=== PATIENT | female | born 2005 | race Caucasian/White ===

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

== ENCOUNTER 2023-02-09 14:41 | Emergency (ER) | payer OTHER, SELFPAY ==
--- NOTE | 2023-02-09 14:50 | ED.EYEPROB ---
HPI - Eye Problem General Chief complaint: Eye Problems Stated complaint: Eye pain;Welcome eye Source: patient Mode of arrival: ambulatory Limitations: no limitations History of Present Illness HPI Narrative: 17 y/o female presented for c/o right eye redness, pain and drainage. Onset yesterday. States symptoms started after applying false eyelashes. States her friend used the glue then used the same glue on the pt. Pt reports right eye became red and burning. She removed the lashes immediately. Has been rubbing the eye. Woke this morning with the eye crusted. Has had large amount of thick drainage constantly throughout the day. Reports blurred vision due to the drainage. Denies photophobia. Applied allergy eye drops today, which caused more burning. MD chief complaint: eye pain Related Data Allergies Allergy/AdvReac Type Severity Reaction Status Date / Time pineapple Allergy Mild Unknown Verified 04/14/22 13:40 kiwi Allergy Blister Verified 05/14/22 06:42 gal Allergy Blister Verified 05/14/22 06:42 Review of Systems Review of Systems: CONSTITUTIONAL: Denies body aches, fever, chills EYES:Endorses swelling, redness and pain to right eye; FB sensation Denies visual changes, photophobia ENT: Denies rhinorrhea, congestion, sore throat, or otalgia. CARDIOVASCULAR: Denies chest pain, palpitations RESPIRATORY: Denies cough or dyspnea. GASTROINTESTINAL: Denies abdominal pain, nausea, vomiting, or diarrhea. SKIN: Denies rash, itching, or wounds. MUSCULOSKELETAL: Denies back pain, joint pain, or myalgia. NEUROLOGIC: Denies headache, numbness, tingling, or weakness. All systems reviewed & are unremarkable except as noted in HPI and below PMFSH Past Medical History Medical History Constipation LLQ abdominal pain Ovarian cyst Straining during bowel movements Social History Social History Smoking status: Never smoker Second hand tobacco smoke exposure: Yes Alcohol intake: unknown Substance use: never Living arrangements: with family Gender identity (if verbalized by the patient): Female Comments At time of signature, I have reviewed and agree with nursing past medical, surgical, social and family history unless otherwise noted. Please see nursing chart for further information. There is no relevant family history pertinent to the presenting complaint Exam Narrative: GENERAL: mildly ill-appearing HEAD: Normocephalic, atraumatic. EYES: Mild right conjunctival injection and mild right periorbital swelling/redness. No occlusion. Right eye with copious amount purulent drainage. Minimal chemosis. EOMI. Lid eversion shows no FB. No corneal abrasion on lopez lamp exam. ENT: Mucous membranes pink and moist. No rhinorrhea. TMs normal bilaterally. Throat normal. Uvula midline. CHEST: Clear to auscultation. HEART: Regular rate and rhythm. ABDOMEN: Soft, nontender, nondistended SKIN: Warm, dry, no rash. Normal skin turgor. NEURO: No focal deficits. Alert and oriented x3 PSYCH: Tearful, anxious Course Course Emergency Course: Patient is aware of diagnosis, understands and agrees to treatment plan. Anticipatory guidance given. Patient agrees to follow-up as directed and is aware of reasons to seek care at the emergency department. Portions of this record may have been created with voice recognition software Level of Care: Express Care Visit Vital Signs Vital signs: Vital Signs Temperature 99.2 F 02/09/23 14:54 Pulse Rate 115 H 02/09/23 14:54 Respiratory Rate 16 02/09/23 14:54 Blood Pressure 110/79 02/09/23 14:54 Pulse Oximetry 99 02/09/23 14:54 Temperature 99.2 F 02/09/23 14:54 Pulse Rate 115 H 02/09/23 14:54 Respiratory Rate 16 02/09/23 14:54 Blood Pressure 110/79 02/09/23 14:54 Pulse Oximetry 99 02/09/23 14:54 Procedures FB Removal Eye Foreig
[2023-02-09 14:54] VITALS: BP 110/79; PULSE 115; RESP 16; TEMP 37.3; O2SAT 99
== END 2023-02-09 15:13 | disposition home or self-care (01) ==
PROVIDERS: Emergency Provider Nurse Practitioner Family
DX: H10.9 Unspecified conjunctivitis (principal)
CPT/HCPCS: 99213; A9270; G0463

== ENCOUNTER 2023-07-10 11:29 | Inpatient (IN) | payer MEDICAID, SELFPAY ==
[2023-07-10] VITALS (10 sets, daily range): BP systolic 120–137; BP diastolic 81–99; PULSE 65–108; RESP 12–30; TEMP 36.4–36.9; O2SAT 91–100; BMI 14.6
--- NOTE | ~2023-07-10 | XR_ITS ---
EXAMINATION: XR chest 2V DATE: 07/10/2023 14:41 INDICATION: Weakness and dyspnea with exertion TECHNIQUE: PA and lateral views of the chest were obtained. COMPARISON: None FINDINGS: The lungs are clear with no focal airspace opacities, pulmonary edema, pleural effusion or pneumothor ax. The cardiomediastinal silhouette is normal. Visualized bones and soft tissues are unremarkable. IMPRESSION: 1. Normal chest radiograph. Reviewed, dictated and finalized at location A. IMPRESSION: 1. Normal chest radiograph.
--- NOTE | 2023-07-10 14:02 | ED.WEAKNESS ---
HPI - Weakness General Chief complaint: Weakness <EDUARDO Dobson Last Filed: 07/10/23 18:00> Stated complaint: weakness <EDUARDO Dobson Last Filed: 07/10/23 18:00> Time Seen by Provider: 07/10/23 14:03 <Opal Kraus PA-C - Last Filed: 07/10/23 18:00> Focused HPI: Patient is a 17 y/o female who presents to the ED with c/o weakness. Patient reports having weakness, shortness of breath with exertion, intermittent dizziness - worse with movement and position changes. States she feels as though she has to stop to catch her breath even with talking/eating. Reports 3 recent near-syncopal episodes after standing. Also reports unintentional weight loss, starts she has lost approx 15 lbs in the last two weeks. States she has been eating normally, high protein meals, has not been working out. Denies fevers, night sweats, CP currently. 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 GENERAL: Well-appearing, thin with BMI of 14.7, and in no acute distress. HEAD: Normocephalic, atraumatic. CHEST: Clear to auscultation. ?No respiratory distress. HEART: Tachycardic with regular rhythm.? NEURO: ?Alert and oriented x3. Patient screened in triage and initial orders placed.? ?Additional care and disposition to be based upon?diagnostic testing and treatment. <EDUARDO Dobson Last Filed: 07/10/23 18:00> Source: patient <EDUARDO Dobson Last Filed: 07/10/23 18:00> Mode of arrival: ambulatory <EDUARDO Dobson Last Filed: 07/10/23 18:00> Limitations: no limitations <EDUARDO Dobson Last Filed: 07/10/23 18:00> History of Present Illness HPI Narrative: HPI as per above in MSE. Pt also admits to excessive thirst and urinary frequency. Pt has no FH of DM. <Celine Ahuja III, DO - Last Filed: 07/10/23 22:40> Related Data Home medications: Home Medications Medication Instructions Recorded Confirmed hydroxyzine pamoate 50 mg capsule 50 mg PO DAILY 07/10/23 07/10/23 trazodone 100 mg tablet 50 mg PO HS PRN Insomnia 07/10/23 07/10/23 <Opal Kraus PA-C - Last Filed: 07/10/23 18:00> Allergies/Adverse reactions: Allergies Allergy/AdvReac Type Severity Reaction Status Date / Time pineapple Allergy Mild Unknown Verified 07/10/23 11:37 kiwi Allergy Blister Verified 07/10/23 11:37 gal Allergy Blister Verified 07/10/23 11:37 <Opal Kraus PA-C - Last Filed: 07/10/23 18:00> Review of Systems Review of Systems: All systems reviewed & are unremarkable except as noted in HPI and below <Celine Ahuja III, DO - Last Filed: 07/10/23 22:40> PMFSH Past Medical History Medical History: Medical History (Updated 07/10/23 @ 18:23 by Jagruti Russo MD) Constipation LLQ abdominal pain Ovarian cyst Straining during bowel movements Underweight <EDUARDO Dobson Last Filed: 07/10/23 18:00> Social History Social History: Social History Smoking status: Never smoker Second hand tobacco smoke exposure: Yes Alcohol intake: unknown Substance use: former Substance use type: marijuana and amphetamines Last use: 96 days ago Do You Feel Safe in your Home?: Yes Lack of Transportation: No Lack of Food: Never True Current Housing: I Have Housing Concerned About Future Housing: No Difficulty Paying Gas/Electric Bills: No Difficulty Paying for Meds: No Currently Unemployed: No Education: High School Diploma/GED Difficulty w/ Childcare or Family Care: No Living arrangements: with family Gender identity (if verbalized by the patient): Female Spiritual care concerns: No <EDUARDO Dobson Last Filed: 07/10/23 18:00> Exam Const: General: healthy appearing <Celine Ahuja III, DO - Last Filed: 06/25
--- NOTE | 2023-07-10 14:09 | ECG_ITS ---
SEE SCANNED COPY FOR CONFIRMED REPORT MTDD
[2023-07-10 14:32] LABS: Basophils Absolute Auto 0.1 K/mm3 (0.0-0.1); Eosinophils Absolute Auto 0.1 K/mm3 (0-0.3); Eosinophils Percent Auto 1.6 % (0-4.4); Hematocrit 41.5 % (37.0-47.0); Immature Granulocyte Absolute 0.04 K/mm3 (0.00-0.031); Immature Granulocyte Percent A 0.8 % (0-0.5); Lymphocytes Absolute Auto 1.04 K/mm3 (0.9-3.2); Lymphocytes Percent Auto 21.4 % (18.3-44.2); Mean Corpuscular HGB Conc 36.1 g/dl (32-36); Mean Corpuscular Hemoglobin 31.7 pg (26-34); Mean Corpuscular Volume 87.7 fl (80-100); Mean Platelet Volume 9.1 fl (7.4-10.4); Monocytes Absolute Auto 0.6 K/mm3 (0.1-0.6); Monocytes Percent Auto 12.6 % (2.6-8.5); Neutrophils Percent Auto 62.6 % (45.5-73.1); Platelet Count Result 351 k/mm3 (150-375); Red Blood Count 4.73 M/mm3 (4.2-5.4); Red Cell Distribution Width 16.2 % (11.5-14.5); White Blood Count 4.9 K/mm3 (4.5-10.0)
[2023-07-10 14:48] LABS: Alanine Aminotransferase 17 U/L (6-35); Albumin Level 4.5 g/dL (3.7-5.6); Alkaline Phosphatase 227 U/L (45-116); Anion Gap 20 mmol/L (4-12); Aspartate Amino Transferase 16 U/L (14-36); Bilirubin,Total 0.9 mg/dL (0.2-1.3); Blood Urea Nitrogen 10 mg/dL (8-21); Calcium 9.1 mg/dL (8.9-10.7); Carbon Dioxide 7 mmol/L (22-30); Chloride 99 mmol/L (98-107); Creatine Kinase 35 U/L (30-135); Estimated CRCL calculation 95 ml/min; Estimated Glomerular Filt Rate > 60; Lipase 294 U/L (23-300); Magnesium 2.2 mg/dL (1.6-2.3); Potassium 3.1 mmol/L (3.4-5.0); Sodium 126 mmol/L (134-143)
[2023-07-10 14:58] LABS: Glucose 672 mg/dL (65-110)
[2023-07-10 15:06] LABS: Appearance Urine Clear (Clear); Bacteria Urine None Seen /hpf; Bilirubin Urine Negative (Negative); Blood Urine 1+ (Negative); Color Urine Yellow (Yellow); Glucose Urine UA 3+ mg/dL (Negative); Ketones Urine 3+ mg/dL (Negative); Leukocyte Esterase Ur Negative LEU/UL (Negative); Nitrate Urine Negative (Negative); Non Pathogenic Casts 0-2; Protein Urine Negative (Negative); RBC Urine 0-2 /hpf (0-2); Squamous Epithelial Cell Urine None Seen /hpf (Few); Urobilinogen Urine 0.2 mg/dL (<2.0); WBC Urine 0-5 /hpf (0-3); pH Urine 5.5 (5.0-9.0)
[2023-07-10 15:09] LABS: Specific Grav Ur 1.032 (1.001-1.035)
[2023-07-10 15:10] LABS: Add Urine Microscopic? YES
[2023-07-10 15:30] LABS: Thyroid Stimulating Hormone Reflex 0.681 uIU/mL (0.465-4.68)
[2023-07-10 15:34] LABS: Amphetamine Screen Urine Negative (Negative); Barbiturate Screen Urine Negative (Negative); Benzodiazepines Screen Urine Negative (Negative); Cannabinoid Screen Urine Positive (Negative); Cocaine Screen Urine Negative (Negative); Methadone Screen Urine Negative (Negative); Opiate Screen Urine Negative (Negative); Phencyclidine Screen Urine Negative (Negative)
[2023-07-10] MEDS: SODIUM CHLORIDE 0.9% IV 1,000 ML 999 ML IV CONT (15:34)
[2023-07-10 15:36] LABS: Alveolar/Arterial O2 Gradient 16.4 mmHg; Carboxyhemoglobin 0.6 % THb (0-2.0); Fractional Inspired Oxygen 21 %; HCO3 ABG 7.4 mEq/l (22.0-26.0); Methemoglobin ABG 0.3 %THb (0-1.5); Oxygen Content ABG 21.6 %vol (16.0-22.0); Oxygen Saturation ABG 97.9 % (95.0-100.0); Oxyhemoglobin 97.1 % THb (90.0-100.0); PO2 ABG 114.8 mmHg (80.0-100.0); PO2 FiO2 Ratio Arterial Blood 5.47 %; Total Hemoglobin 15.7 g/dL (12.0-18.0)
[2023-07-10 15:38] LABS: pH ABG 7.297 (7.350-7.450)
[2023-07-10 15:39] LABS: Device ROOM AIR; PCO2 ABG 15.5 mmHg (35.0-45.0); Site Drawn RIGHT BRACHIAL
[2023-07-10 15:53] LABS: Phosphorus 3.4 mg/dL (2.5-4.5)
[2023-07-10 15:54] LABS: Hemoglobin A1C 13.7 % (<5.7)
[2023-07-10] MEDS: POTASSIUM CHLORIDE 20 MEQ ER TABLET 40 MEQ PO (16:03)
[2023-07-10] MEDS: POTASSIUM CHLORIDE INJ 40 MEQ in SODIUM CHLORIDE 0.9% IV 500 ML 130 MEQ IVPB ×2 (16:03→23:45)
[2023-07-10] MEDS: SODIUM CHLORIDE 0.9% IV 250 ML 999 ML (16:08)
--- NOTE | 2023-07-10 16:08 | PC.NURSE ---
started 250ml NS 0.9% with potassium infusion per verbal order read back from provider
[2023-07-10 17:10] LABS: Pregnancy On Board Control Positive; Urine Pregnancy Test Negative
[2023-07-10] MEDS: SODIUM CHLORIDE 0.9% IV 1,000 ML 150 ML IV CONT (17:10)
[2023-07-10 17:12] LABS: Glucose Point of Care 337 mg/dl (65-105)
--- NOTE | 2023-07-10 17:52 | ADMGEN ---
This patient, Himanshu Damon, was admitted to Intensive Care Unit-8. Patient/family oriented to hospital policies and general routines including ID bracelet, bed and alarms, visiting hours, pain management, procedures, bathroom and other care routines, personal items, smoking policy, room service/diet, and visiting hours. Information on how to activate the Rapid Response Team has been discussed. Patient/Family are encouraged to report perceived risks to care and to ask questions if they do not understand what they are told or what they should do.
--- NOTE | 2023-07-10 18:16 | PM.IMHP ---
H&P: HPI History of Present Illness Date/Time: 07/10/23 18:16 Chief Complaint: Shortness of breath with exertion, intermittent dizziness, weight loss, urinary frequency, increased thirst. Narrative: Miss Damon is a pleasant 17-year-old female with a past medical history polysubstance abuse who presents with approximately 2 weeks of shortness of breath with exertion, intermittent dizziness, 16 lb weight loss, urinary frequency, increased thirst. She has always been underweight, previously 110 lb now 94 lb. 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 She still does smoke marijuana prior to sleep for her anxiety. At the age of 7 she was bit by a brown recluse spider and was in a hospital for 9 days. She never received a blood transfusion reporting was able to eat well and be discharged. 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 No family history of diabetes. She does not have a PCP nor take prescribed medications. The patient had enough of feeling ill and decided to obtain insurance and present to [place] [facility] she was found to be in DKA. ABG revealing pH of 7.29 and bicarb was 7.4. Sodium 126 potassium 3.1 anion gap 20. Random glucose 672. Hemoglobin A1c 13.7%. Urinalysis demonstrating urine ketones glucose and 1+ blood. U tox positive for cannabinoids. In the [facility] she was given KCl 40 mEq p.o. x1 along with 1 L normal saline and insulin GTT started. Review of Systems Review of Systems: All systems reviewed & are unremarkable except as noted in HPI and below (Subjective) [facility] Past Medical History Medical History (Updated 07/10/23 @ 18:23 by Jagruti Russo MD) Constipation LLQ abdominal pain Ovarian cyst Straining during bowel movements Underweight Social History Social History Smoking status: Never smoker Second hand tobacco smoke exposure: Yes Alcohol intake: unknown Substance use: never Living arrangements: with family Gender identity (if verbalized by the patient): Female Meds Home Medications and Allergies Home Medications Medication Instructions Recorded Confirmed Type cyclobenzaprine 10 mg tablet 10 mg PO TID PRN muscle spasm #20 04/14/22 Rx tabs dicyclomine 20 mg tablet 20 mg PO QID #14 tabs 05/14/22 Rx ketorolac 0.5 % eye drops 1 drp RIGHT EYE Q6H PRN pain #3 mL 02/09/23 Rx polymyxin B sulfate 10,000 1 drp RIGHT EYE Q3H 7 days #10 mL 02/09/23 Rx unit-trimethoprim 1 mg/mL eye drops Allergies Allergy/AdvReac Type Severity Reaction Status Date / Time pineapple Allergy Mild Unknown Verified 07/10/23 11:37 kiwi Allergy Blister Verified 07/10/23 11:37 gal Allergy Blister Verified 07/10/23 11:37 Vital Signs Vital Signs - 24 hr 07/10/23 12:06 07/10/23 16:15 07/10/23 16:15 Temperature 97.6 F Pulse Rate 108 H 96 102 H Respiratory Rate 16 Blood Pressure 126/81 127/83 130/91 H Pulse Oximetry 100 07/10/23 16:16 07/10/23 15:58 07/10/23 16:01 Temperature Pulse Rate 103 H 99 97 Respiratory Rate 30 H 12 Blood Pressure 134/92 H 136/99 H 126/87 Pulse Oximetry 100 100 07/10/23 16:15 07/10/23 16:16 07/10/23 16:17 Temperature Pulse Rate 99 105 H 101 H Respiratory Rate 13 17 18 Blood Pressure 127/83 130/91 H 134/92 H Pulse Oximetry 100 100 100 07/10/23 16:46 Temperature Pulse Rate 100 Respiratory Rate 18 Blood Pressure 128/92 H Pulse Oximetry 100 Exam Const: General: comfortable and no acute distress Other: A&O x3 Eyes: Pupils: Equal, round and reactive pupils present Neck: Neck: supple Resp: Effort & Inspection: normal respiratory effort Auscultation: clear to auscultation bilaterally Cardio: Rate: regular rate Rhythm: regular rhythm Heart sounds: no gallops, no murmurs and no rubs GI: GI Palp: Yes Soft to palpation and No Tender
[2023-07-10] MEDS: INSULIN HUMAN REGULAR (*BKC) 100 UNITS in SODIUM CHLORIDE 0.9% IV 99 ML IV CONT (18:35)
[2023-07-10 18:36] LABS: Glucose Point of Care 249 mg/dl (65-105)
[2023-07-10] MEDS: KCL 20 MEQ/D5/0.45% SOD CHL 1,000 ML 150 ML IV CONT (19:00)
[2023-07-10 20:04] LABS: Glucose Point of Care 228 mg/dl (65-105)
[2023-07-10 20:39] LABS: MRSA (PCR) NOT DETECTED (NOT DETECTE)
[2023-07-10 21:15] LABS: Blood Urea Nitrogen 6 mg/dL (8-21); Carbon Dioxide < 5 mmol/L (22-30); Chloride 117 mmol/L (98-107); Estimated CRCL calculation 116 ml/min; Estimated Glomerular Filt Rate > 60; Glucose 215 mg/dL (65-110); Potassium 2.9 mmol/L (3.4-5.0); Sodium 138 mmol/L (134-143)
[2023-07-10 22:03] LABS: Glucose Point of Care 208 mg/dl (65-105)
[2023-07-10 23:05] LABS: Glucose Point of Care 185 mg/dl (65-105)
[2023-07-10] MEDS: POTASSIUM CHLORIDE 20 MEQ PACKET (FOR LIQUID) 40 MEQ PO (23:45)
[2023-07-11] VITALS (12 sets, daily range): BP systolic 95–128; BP diastolic 57–87; PULSE 90–139; RESP 12–29; TEMP 36.6–37.1; O2SAT 94–100; BMI 17.8
[2023-07-11] MEDS: traZODone HCL 50 MG TABLET PO ×2 (00:12→22:46)
[2023-07-11 00:19] LABS: Glucose Point of Care 197 mg/dl (65-105)
[2023-07-11 01:28] LABS: Glucose Point of Care 261 mg/dl (65-105)
[2023-07-11] MEDS: KCL 20 MEQ/D5/0.45% SOD CHL 1,000 ML 150 ML IV CONT ×2 (01:41→09:48)
[2023-07-11 02:28] LABS: Glucose Point of Care 273 mg/dl (65-105)
[2023-07-11 04:25] LABS: Basophils Absolute Auto 0.1 K/mm3 (0.0-0.1); Basophils Percent Auto 1.3 % (0.2-1.2); Eosinophils Absolute Auto 0.2 K/mm3 (0-0.3); Eosinophils Percent Auto 3.3 % (0-4.4); Hematocrit 34.4 % (37.0-47.0); Hemoglobin 12.4 g/dL (12.0-15.0); Immature Granulocyte Absolute 0.04 K/mm3 (0.00-0.031); Immature Granulocyte Percent A 0.6 % (0-0.5); Lymphocytes Absolute Auto 2.41 K/mm3 (0.9-3.2); Lymphocytes Percent Auto 35.7 % (18.3-44.2); Mean Corpuscular Hemoglobin 31.3 pg (26-34); Mean Corpuscular Volume 86.9 fl (80-100); Mean Platelet Volume 8.9 fl (7.4-10.4); Monocytes Percent Auto 14.5 % (2.6-8.5); Neutrophils Percent Auto 44.6 % (45.5-73.1); Platelet Count Result 289 k/mm3 (150-375); Red Blood Count 3.96 M/mm3 (4.2-5.4); Red Cell Distribution Width 15.7 % (11.5-14.5); White Blood Count 6.8 K/mm3 (4.5-10.0)
[2023-07-11 04:35] LABS: Alanine Aminotransferase 13 U/L (6-35); Albumin Level 2.9 g/dL (3.7-5.6); Alkaline Phosphatase 140 U/L (45-116); Anion Gap 7 mmol/L (4-12); Aspartate Amino Transferase 15 U/L (14-36); Bilirubin,Total 0.8 mg/dL (0.2-1.3); Blood Urea Nitrogen 3 mg/dL (8-21); Carbon Dioxide 10 mmol/L (22-30); Chloride 115 mmol/L (98-107); Estimated CRCL calculation 148 ml/min; Estimated Glomerular Filt Rate > 60; Glucose 257 mg/dL (65-110); Magnesium 1.9 mg/dL (1.6-2.3); Phosphorus 1.8 mg/dL (2.5-4.5); Potassium 3.7 mmol/L (3.4-5.0); Sodium 132 mmol/L (134-143)
[2023-07-11 04:42] LABS: Glucose Point of Care 273 mg/dl (65-105)
[2023-07-11 04:42] LABS: Glucose Point of Care 249 mg/dl (65-105)
[2023-07-11 05:40] LABS: Glucose Point of Care 254 mg/dl (65-105)
[2023-07-11 06:28] LABS: Glucose Point of Care 212 mg/dl (65-105)
[2023-07-11 07:22] LABS: Glucose Point of Care 206 mg/dl (65-105)
[2023-07-11] MEDS: SODIUM CHLORIDE 0.9% IV 1,000 ML 999 ML IV CONT (07:44)
[2023-07-11 08:33] LABS: Glucose Point of Care 118 mg/dl (65-105)
[2023-07-11] MEDS: PANTOPRAZOLE SODIUM IV 40 MG VIAL IV PUSH (08:34)
[2023-07-11] MEDS: ENOXAPARIN 40 MG/0.4 ML SYRINGE SUB-Q (08:34)
--- NOTE | 2023-07-11 08:44 | WPDCNINT ---
Assessment and Plan Assessment and plan (1) DKA (diabetic ketoacidosis): Code(s): E11.10 - Type 2 diabetes mellitus with ketoacidosis without coma Status: Acute Assessment and Plan: Patient presented with polyphagia, polydipsia, polyuria, weight loss, dizziness -found to be in diabetic ketoacidosis in the ER, given 1 L IV fluid bolus and started on insulin infusion per DKA protocol -patient remains tachycardic and acidotic this morning, give additional 2 L IV fluids -remains on insulin infusion at this time, will transition to long-acting insulin and sliding scale insulin along with Accu-Cheks once anion gap closes and acidosis resolves -hemoglobin A1c is 13.7 this admission -environmental projects advisor and dietitian have been consulted (2) Diabetes mellitus, new onset: Code(s): E11.9 - Type 2 diabetes mellitus without complications Status: Acute Assessment and Plan: New onset diabetes, zinc transporter 8 antibody and GAD65 antibodies have been ordered -hemoglobin A1c 13.7 this admission -patient will likely require insulin upon discharge (3) Hypokalemia: Code(s): E87.6 - Hypokalemia Status: Acute Assessment and Plan: Hypokalemia on admission, potassium was replaced, currently within normal limits, -will continue to monitor Plan DVT prophylaxis: Lovenox Stress ulcer prophylaxis: Not indicated Nutrition: NPO for now Code Status: Full code Critical Care Time Spent: 45 minutes Discussed with patient and her mother at bedside and updated them with patient's condition plan of care. I answered all the questions. medical educator was at bedside Due to a high probability of clinically significant, life threatening deterioration, the patient required my highest level of preparedness to intervene emergently and I personally spent this critical care time directly and personally managing the patient. This critical care time included obtaining a history; examining the patient; pulse oximetry; ordering and review of studies; arranging urgent treatment with development of a management plan; evaluation of patient's response to treatment; frequent reassessment; and discussions with other providers. It was exclusive of separately billable procedures and treating other patients and teaching time. Please see Assessment and Plan section and the rest of the note for further information on patient assessment and treatment This dictation may have been done utilizing a voice recognition system. Attempts have been made to correct errors. However, there may be uncorrected grammatical, spelling, and recognitions errors present. Audioprosthologist Consult Note Consult date: 07/11/23 Reason for consult: Diabetic ketoacidosis, hyperglycemia, polyuria, polydipsia, polyphagia, weight loss HPI: Himanshu Damon is a 17 year old female with past medical history of polysubstance abuse with methamphetamine Adderall, discharged from rehab approximately 90 days prior to this admission presented to the ED with complains of weight loss, polyuria, polydipsia, polyphagia, generalized weakness, intermittent dizziness and passing out. States she discussed with the mother that something was not right and presented the ED which she was found to have blood sugars of 672, elevated anion gap, severely acidotic and was diagnosed with diabetic ketoacidosis. Patient was given 1 L IV fluids and started on insulin infusion per DKA protocol and transferred to the ICU for further management. Patient seen and examined this morning in the ICU, very pleasant young female who states she feels much better this morning, states she is hungry. Denies any nausea, vomiting, abdominal pain, chest pain, shortness of breath. Have asked the bedside RN to give 1 L IV fluid bolus. Patient remains on insulin infusion per DKA protocol, continues to be severely acidotic, anion gap is closed. Review of Systems Review of Systems: All systems reviewed & are unrema
[2023-07-11 09:45] LABS: Glucose Point of Care 96 mg/dl (65-105)
[2023-07-11] MEDS: LACTATED RINGERS 1,000 ML 999 ML IV CONT (09:48)
[2023-07-11 09:59] LABS: Anion Gap 10 mmol/L (4-12); Blood Urea Nitrogen 3 mg/dL (8-21); Calcium 8.2 mg/dL (8.9-10.7); Carbon Dioxide 14 mmol/L (22-30); Chloride 112 mmol/L (98-107); Estimated CRCL calculation 141 ml/min; Estimated Glomerular Filt Rate > 60; Glucose 95 mg/dL (65-110); Potassium 2.5 mmol/L (3.4-5.0); Sodium 136 mmol/L (134-143)
[2023-07-11] MEDS: INSULIN GLARGINE (*BKC) 100 UNITS/ML 24 UNITS SUB-Q (10:21)
[2023-07-11] MEDS: POTASSIUM CHLORIDE 20 MEQ ER TABLET 80 MEQ PO (10:23)
[2023-07-11 11:25] LABS: Glucose Point of Care 93 mg/dl (65-105)
[2023-07-11 13:58] LABS: Anion Gap 8 mmol/L (4-12); Blood Urea Nitrogen 2 mg/dL (8-21); Carbon Dioxide 17 mmol/L (22-30); Chloride 106 mmol/L (98-107); Estimated CRCL calculation 180 ml/min; Estimated Glomerular Filt Rate > 60; Glucose 353 mg/dL (65-110); Potassium 3.3 mmol/L (3.4-5.0); Sodium 131 mmol/L (134-143)
[2023-07-11] MEDS: INSULIN ASPART (*BKC) 100 UNITS/ML SUB-Q ×2 (16:35→20:26)
[2023-07-11 16:40] LABS: Glucose Point of Care > 500 mg/dl (65-105)
[2023-07-11] MEDS: INSULIN ASPART (*BKC) 100 UNITS/ML 10 UNITS SUB-Q (17:33)
[2023-07-11 23:06] LABS: Glucose Point of Care 388 mg/dl (65-105)
[2023-07-12] VITALS (9 sets, daily range): BP systolic 101–119; BP diastolic 60–98; PULSE 85–131; RESP 14–22; TEMP 36.6–36.9; O2SAT 98–100
[2023-07-12 06:36] LABS: Hematocrit 35.3 % (37.0-47.0); Hemoglobin 12.8 g/dL (12.0-15.0); Mean Corpuscular HGB Conc 36.3 g/dl (32-36); Mean Corpuscular Hemoglobin 31.1 pg (26-34); Mean Corpuscular Volume 85.9 fl (80-100); Mean Platelet Volume 9.1 fl (7.4-10.4); Platelet Count Result 263 k/mm3 (150-375); Red Blood Count 4.11 M/mm3 (4.2-5.4); Red Cell Distribution Width 15.3 % (11.5-14.5); White Blood Count 5.4 K/mm3 (4.5-10.0)
[2023-07-12 07:13] LABS: Anion Gap 3 mmol/L (4-12); Blood Urea Nitrogen 6 mg/dL (8-21); Calcium 8.5 mg/dL (8.9-10.7); Carbon Dioxide 26 mmol/L (22-30); Chloride 108 mmol/L (98-107); Estimated CRCL calculation 167 ml/min; Estimated Glomerular Filt Rate > 60; Glucose 171 mg/dL (65-110); Potassium 2.8 mmol/L (3.4-5.0); Sodium 137 mmol/L (134-143)
[2023-07-12 07:56] LABS: Glucose Point of Care 196 mg/dl (65-105)
[2023-07-12] MEDS: ENOXAPARIN 40 MG/0.4 ML SYRINGE SUB-Q (08:01)
[2023-07-12] MEDS: PANTOPRAZOLE SODIUM IV 40 MG VIAL IV PUSH (08:01)
[2023-07-12] MEDS: POTASSIUM CHLORIDE 20 MEQ ER TABLET 80 MEQ PO (08:01)
[2023-07-12] MEDS: INSULIN GLARGINE (*BKC) 100 UNITS/ML 35 UNITS SUB-Q (08:02)
--- NOTE | 2023-07-12 08:47 | WPDINTPN ---
Progress Note: A&P Assessment and Plan (1) DKA (diabetic ketoacidosis): Code(s): E11.10 - Type 2 diabetes mellitus with ketoacidosis without coma Status: Acute Assessment and Plan: Patient presented with polyphagia, polydipsia, polyuria, weight loss, dizziness -found to be in diabetic ketoacidosis in the ER, given 1 L IV fluid bolus and started on insulin infusion per DKA protocol -patient remains tachycardic and acidotic this morning, give additional 2 L IV fluids -patient was transition to long-acting insulin and sliding scale insulin along with Accu-Cheks on 07/10 -hemoglobin A1c is 13.7 this admission -appreciate surgical scrub technologist and dietitian evaluation and recommendation (2) Diabetes mellitus, new onset: Code(s): E11.9 - Type 2 diabetes mellitus without complications Status: Acute Assessment and Plan: New onset diabetes, zinc transporter 8 antibody and GAD65 antibodies have been ordered -hemoglobin A1c 13.7 this admission -will increase Lantus this morning (3) Hypokalemia: Code(s): E87.6 - Hypokalemia Status: Acute Assessment and Plan: Hypokalemia on admission, potassium was replaced, currently within normal limits, -will continue to monitor -will replace potassium Plan DVT prophylaxis: Lovenox Stress ulcer prophylaxis: Not indicated Nutrition: Peg diet Code Status: Full code Critical Care Time Spent: 31 minutes Discussed with patient and her mother at bedside and updated them with patient's condition plan of care. I answered all the questions. Patient may transfer out of the ICU if okay with hospitalist team Due to a high probability of clinically significant, life threatening deterioration, the patient required my highest level of preparedness to intervene emergently and I personally spent this critical care time directly and personally managing the patient. This critical care time included obtaining a history; examining the patient; pulse oximetry; ordering and review of studies; arranging urgent treatment with development of a management plan; evaluation of patient's response to treatment; frequent reassessment; and discussions with other providers. It was exclusive of separately billable procedures and treating other patients and teaching time. Please see Assessment and Plan section and the rest of the note for further information on patient assessment and treatment This dictation may have been done utilizing a voice recognition system. Attempts have been made to correct errors. However, there may be uncorrected grammatical, spelling, and recognitions errors present. Subjective Date/time seen: 07/12/23 08:47 Interval history: Reason for consult: Diabetic ketoacidosis, hyperglycemia, polyuria, polydipsia, polyphagia, weight loss 07/12/2023: Patient seen and examined the ICU, very pleasant young female in no acute distress. States she feels much better, denies any shortness of breath, chest pain, abdominal pain, nausea, vomiting. A sugars were high intermittently yesterday requiring extra insulin. Urine output has been adequate, afebrile, hemodynamically stable. Acidosis has resolved, no anion gap metabolic acidosis seen on labs. Review of Systems Review of Systems: All systems reviewed & are unremarkable except as noted in HPI and below Exam Narrative: General: Pleasant young female in no acute distress HEENT:? Pupil equal and reactive, sclera is clear, dry oral mucosa Neck:? Supple Respiratory:? Clear to auscultation bilaterally Cardiac:? Regular rhythm, tachycardia Abdomen:? Soft, nontender, nondistended, normoactive bowel sounds Extremities:? No edema, clubbing or cyanosis, palpable pedal pulses Neuro:? Patient is awake, alert, oriented x3, nonfocal Skin:? Warm and dry Psych:? Normal mentation and affect Objective Data Vital Signs Vital Signs: Vital Signs - 24 hr 07/11/23 10:00 07/11/23 10:00 07/11/23 12:00 Temperature 98.
--- NOTE | 2023-07-12 10:36 | PCFNICU ---
ICU Rounding Note: Pt current nutrition is DBCC. Last recorded weight is 45.3 kg, down from 48.6 kg on admit Bowel Motility: +BM reported 07/10 Labs Reviewed:Glu 171, Cr 0.3,BUN 6, K 2.8 Meds Noted:Lantus,NovoLog, Protonix Skin: WNL Additional Notes: Patient seen today for DBCC education. States to understanding diet information given. Patient is consuming 100% of meals. Glucerna shakes remain on trays providing an additional 220 kcals and 10 gms protein. Agree with diet orders. Following daily in ICU rounds. Will monitor weight, labs, skin, oral intake, meds every 7 days.
--- NOTE | 2023-07-12 11:04 | PM.IMPN ---
Progress Note: A&P Assessment and Plan (1) Hypokalemia: Code(s): E87.6 - Hypokalemia Status: Acute (2) DKA (diabetic ketoacidosis): Code(s): E11.10 - Type 2 diabetes mellitus with ketoacidosis without coma Status: Acute (3) Underweight: Code(s): R63.6 - Underweight Status: Acute Plan (1) DKA (diabetic ketoacidosis): ?Code(s): E11.10 - Type 2 diabetes mellitus with ketoacidosis without coma ?Status:?Acute ?Assessment and Plan: Patient presented with polyphagia, polydipsia, polyuria, weight loss, dizziness -found to be in diabetic ketoacidosis in the ER, given 1 L IV fluid bolus and started on insulin infusion per DKA protocol -patient remains tachycardic and acidotic this morning, give additional 2 L IV fluids -patient was transition to long-acting insulin and sliding scale insulin along with Accu-Cheks on 07/10 -hemoglobin A1c is 13.7 this admission -appreciate tobacco prevention health educator and dietitian evaluation and recommendation 07/11: DKA has resolved, but glucose is not controlled continue Lantus and short-acting insulin, adjust medication for better glucose control Continue glargine 35 units daily, start aspart 10 units before each meal, continue sliding scale a.c. q.h.s. (2) Diabetes mellitus, new onset: ?Code(s): E11.9 - Type 2 diabetes mellitus without complications ?Status:?Acute ?Assessment and Plan: New onset diabetes, zinc transporter 8 antibody and GAD65 antibodies have been ordered -hemoglobin A1c 13.7 this admission -will increase Lantus this morning (3) Hypokalemia: ?Code(s): E87.6 - Hypokalemia ?Status:?Acute ?Assessment and Plan: Hypokalemia on admission, potassium was replaced, currently within normal limits, -will continue to monitor -will replace potassium Plan DVT prophylaxis:? Lovenox Stress ulcer prophylaxis:? Not indicated Nutrition:? Peg diet Code Status:? Full code Subjective Date/time seen: 07/12/23 11:04 Interval history: I saw exam patient today in the ICU, patient feels better, denies nausea vomiting abdomen pain. Patient also denies chest pain, shortness of breath, palpitation. Urine output has been adequate, afebrile, hemodynamically stable. Acidosis has resolved, no anion gap metabolic acidosis seen on labs. Patient is on basal insulin and short-acting insulin Exam Narrative: General: Pleasant young female in no acute distress HEENT:? Pupil equal and reactive, sclera is clear, dry oral mucosa Neck:? Supple Respiratory:? Clear to auscultation bilaterally Cardiac:? Regular rhythm, tachycardia Abdomen:? Soft, nontender, nondistended, normoactive bowel sounds Extremities:? No edema, clubbing or cyanosis, palpable pedal pulses Neuro:? Patient is awake, alert, oriented x3, nonfocal Skin:? Warm and dry Psych:? Normal mentation and affect Objective Data Vital Signs Vital Signs: Vital Signs - 24 hr 07/11/23 12:00 07/11/23 12:00 07/11/23 12:00 Temperature 98.1 F Pulse Rate 117 H 117 H 117 H Respiratory Rate 24 H 24 H Blood Pressure 128/83 Pulse Oximetry 100 100 Oxygen Delivery Room Air 07/11/23 14:00 07/11/23 14:00 07/11/23 16:00 Temperature Pulse Rate 120 H 111 H 138 H Respiratory Rate 14 Blood Pressure 119/73 Pulse Oximetry 100 Oxygen Delivery 07/11/23 16:00 07/11/23 16:00 07/11/23 18:00 Temperature 98.3 F Pulse Rate 139 H 139 H 125 H Respiratory Rate 29 H 29 H Blood Pressure 125/76 Pulse Oximetry 94 94 Oxygen Delivery Room Air 07/11/23 18:00 07/11/23 20:00 07/11/23 20:00 Temperature Pulse Rate 123 H 123 H 107 H Respiratory Rate 14 14 Blood Pressure 120/87 Pulse Oximetry 100 100 Oxygen Delivery Room Air 07/11/23 20:00 07/11/23 22:00 07/11/23 22:00 Temperature 98.7 F Pulse Rate 107 H 109 H 109 H Respiratory Rate 17 15 Blood Pressure 110/73 103/69 Pulse Oximetry 100 100 Oxygen Delivery 07/12/23 00:00
[2023-07-12 11:51] LABS: Glucose Point of Care 288 mg/dl (65-105)
[2023-07-12] MEDS: INSULIN ASPART (*BKC) 100 UNITS/ML SUB-Q ×3 (12:08→20:19)
[2023-07-12 16:26] LABS: Glucose Point of Care 317 mg/dl (65-105)
[2023-07-12] MEDS: INSULIN ASPART (*BKC) 100 UNITS/ML 10 UNITS SUB-Q (16:55)
[2023-07-12 20:06] LABS: Glucose Point of Care 345 mg/dl (65-105)
[2023-07-12] MEDS: traZODone HCL 50 MG TABLET PO (20:54)
[2023-07-13] VITALS: BP 91/58; PULSE 94; PULSE 96; RESP 15; O2SAT 97
[2023-07-13 04:00] VITALS: BP 102/67; PULSE 83; PULSE 96; RESP 12; TEMP 36.5; O2SAT 98
[2023-07-13 05:06] LABS: Anion Gap 3 mmol/L (4-12); Blood Urea Nitrogen 15 mg/dL (8-21); Calcium 8.5 mg/dL (8.9-10.7); Carbon Dioxide 28 mmol/L (22-30); Chloride 107 mmol/L (98-107); Estimated CRCL calculation 167 ml/min; Estimated Glomerular Filt Rate > 60; Glucose 115 mg/dL (65-110); Potassium 3.2 mmol/L (3.4-5.0); Sodium 138 mmol/L (134-143)
--- NOTE | 2023-07-13 07:47 | PM.IMPN ---
Progress Note: A&P Assessment and Plan (1) Hypokalemia: Code(s): E87.6 - Hypokalemia Status: Acute (2) DKA (diabetic ketoacidosis): Code(s): E11.10 - Type 2 diabetes mellitus with ketoacidosis without coma Status: Acute (3) Underweight: Code(s): R63.6 - Underweight Status: Acute Plan (1) DKA (diabetic ketoacidosis): ?Code(s): E11.10 - Type 2 diabetes mellitus with ketoacidosis without coma ?Status:?Acute ?Assessment and Plan: Patient presented with polyphagia, polydipsia, polyuria, weight loss, dizziness -found to be in diabetic ketoacidosis in the ER, given 1 L IV fluid bolus and started on insulin infusion per DKA protocol -patient remains tachycardic and acidotic this morning, give additional 2 L IV fluids -patient was transition to long-acting insulin and sliding scale insulin along with Accu-Cheks on 07/10 -hemoglobin A1c is 13.7 this admission -appreciate healthcare educator and dietitian evaluation and recommendation 07/11: DKA has resolved, but glucose is not controlled continue Lantus and short-acting insulin, adjust medication for better glucose control Continue glargine 35 units daily, start aspart 10 units before each meal, continue sliding scale a.c. q.h.s. 07/12: glucose is better controlled. c/w current insulin protocol and pt needs to see PCP, address medication per PCP and referral to bus aide per PCP (2) Diabetes mellitus, new onset: ?Code(s): E11.9 - Type 2 diabetes mellitus without complications ?Status:?Acute ?Assessment and Plan: New onset diabetes, zinc transporter 8 antibody and GAD65 antibodies have been ordered -hemoglobin A1c 13.7 this admission -will increase Lantus and aspart see above (3) Hypokalemia: ?Code(s): E87.6 - Hypokalemia ?Status:?Acute ?Assessment and Plan: Hypokalemia on admission, potassium was replaced, currently within normal limits, -will continue to monitor -will replace potassium 3.2 today. discharge with potassium chloride 20 mEq p.o. daily follow-up with PCP and correct electrolyte abnormality per PCP discharge patient today Subjective Date/time seen: 07/13/23 07:47 Interval history: patient is afebrile, blood pressure stable, no O2 desaturation overnight, glucose is better controlled, Exam Narrative: General: Pleasant young female in no acute distress HEENT:? Pupil equal and reactive, sclera is clear, dry oral mucosa Neck:? Supple Respiratory:? Clear to auscultation bilaterally Cardiac:? Regular rhythm, tachycardia Abdomen:? Soft, nontender, nondistended, normoactive bowel sounds Extremities:? No edema, clubbing or cyanosis, palpable pedal pulses Neuro:? Patient is awake, alert, oriented x3, nonfocal Skin:? Warm and dry Psych:? Normal mentation and affect Objective Data Vital Signs Vital Signs: Vital Signs - 24 hr 07/12/23 08:00 07/12/23 08:00 07/12/23 08:00 Temperature 98.1 F Pulse Rate 103 H 103 H 103 H Respiratory Rate 15 15 Blood Pressure 111/80 Pulse Oximetry 100 100 Oxygen Delivery Room Air 07/12/23 08:50 07/12/23 12:00 07/12/23 12:00 Temperature 97.9 F Pulse Rate 131 H 131 H Respiratory Rate 20 Blood Pressure 119/95 H Pulse Oximetry 100 100 Oxygen Delivery Room Air 07/12/23 16:00 07/12/23 16:00 07/12/23 20:00 Temperature 98.2 F Pulse Rate 111 H 104 H Respiratory Rate 18 Blood Pressure 108/78 Pulse Oximetry 100 Oxygen Delivery Room Air 07/12/23 20:00 07/12/23 20:00 07/13/23 00:00 Temperature Pulse Rate 119 H 118 H 96 Respiratory Rate 14 15 Blood Pressure 110/98 H 91/58 L Pulse Oximetry 99 97 Oxygen Delivery 07/13/23 00:00 07/13/23 04:00 07/13/23 04:00 Temperature 97.7 F Pulse Rate 94 96 83 Respiratory Rate 12 Blood Pressure 102/67 Pulse Oximetry 98 Oxygen Delivery Intake/Output Intake/Output: Intake & Output 07/10/23 07/11/23 07/12/23 07/13/23
--- NOTE | 2023-07-13 07:48 | PM.DS ---
DS: Admitting Diagnosis Discharge Date 07/13/23 Admitting Diagnosis (1) Hypokalemia: ?Code(s): E87.6 - Hypokalemia ?Status:?Acute (2) DKA (diabetic ketoacidosis): ?Code(s): E11.10 - Type 2 diabetes mellitus with ketoacidosis without coma ?Status:?Acute (3) Underweight: ?Code(s): R63.6 - Underweight ?Status:?Acute DS: Discharge Diagnosis Discharge Diagnosis (1) Hypokalemia: Code(s): E87.6 - Hypokalemia Status: Acute (2) DKA (diabetic ketoacidosis): Code(s): E11.10 - Type 2 diabetes mellitus with ketoacidosis without coma Status: Acute (3) Underweight: Code(s): R63.6 - Underweight Status: Acute DS: Summary Hospital Course Hospital Course: per PCP, Nelson is a pleasant 17-year-old female with a past medical history polysubstance abuse who presents with approximately 2 weeks of shortness of breath with exertion, intermittent dizziness, 16 lb weight loss, urinary frequency, increased thirst.? She has always been underweight, previously 110 lb now 94 lb.? 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 She still does smoke marijuana prior to sleep for her anxiety.? At the age of 7 she was bit by a brown recluse spider and was in a hospital for 9 days.? She never received a blood transfusion reporting was able to eat well and be discharged.? 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 No family history of diabetes.? She does not have a PCP nor take prescribed medications. The patient had enough of feeling ill and decided to obtain insurance and present to [facility] [facility] she was found to be in DKA.? ABG revealing pH of 7.29 and bicarb was 7.4.? Sodium 126 potassium 3.1 anion gap 20.? Random glucose 672.? Hemoglobin A1c 13.7%.? Urinalysis demonstrating urine ketones glucose and 1+ blood.? U tox positive for cannabinoids. In the [facility] ER she was given KCl 40 mEq p.o. x1 along with 1 L normal saline and insulin GTT started. during hospitalization, the following medical issues have been addressed (1) DKA (diabetic ketoacidosis): ?Code(s): E11.10 - Type 2 diabetes mellitus with ketoacidosis without coma ?Status:?Acute ?Assessment and Plan: Patient presented with polyphagia, polydipsia, polyuria, weight loss, dizziness -found to be in diabetic ketoacidosis in the ER, given 1 L IV fluid bolus and started on insulin infusion per DKA protocol -patient remains tachycardic and acidotic this morning, give additional 2 L IV fluids -patient was transition to long-acting insulin and sliding scale insulin along with Accu-Cheks on 07/10 -hemoglobin A1c is 13.7 this admission -appreciate flight agent and dietitian evaluation and recommendation 07/11: DKA has resolved, but glucose is not controlled continue Lantus and short-acting insulin, adjust medication for better glucose control Continue glargine 35 units daily, start aspart 10 units before each meal, continue sliding scale a.c. q.h.s. 07/12: glucose is better controlled. c/w current insulin protocol and pt needs to see PCP, address medication per PCP and referral to digital analyst per PCP (2) Diabetes mellitus, new onset: ?Code(s): E11.9 - Type 2 diabetes mellitus without complications ?Status:?Acute ?Assessment and Plan: New onset diabetes, zinc transporter 8 antibody and GAD65 antibodies have been ordered -hemoglobin A1c 13.7 this admission -will increase Lantus and aspart see above (3) Hypokalemia: ?Code(s): E87.6 - Hypokalemia ?Status:?Acute ?Assessment and Plan: Hypokalemia on admission, potassium was replaced, currently within normal limits, -will continue to monitor -will replace potassium 3.2 today. discharge with potassium chloride 20 mEq p.o. daily follow-up with PCP and correct electrolyte abnormality per PCP discharge patient to
[2023-07-13 08:00] VITALS: BP 118/76; PULSE 101; RESP 14; TEMP 36.4; O2SAT 100
[2023-07-13] MEDS: INSULIN ASPART (*BKC) 100 UNITS/ML 10 UNITS SUB-Q ×2 (08:20→11:45)
[2023-07-13] MEDS: INSULIN GLARGINE (*BKC) 100 UNITS/ML 35 UNITS SUB-Q (08:20)
[2023-07-13] MEDS: ENOXAPARIN 40 MG/0.4 ML SYRINGE SUB-Q (08:20)
[2023-07-13] MEDS: PANTOPRAZOLE SODIUM IV 40 MG VIAL IV PUSH (08:20)
[2023-07-13 11:32] LABS: Glucose Point of Care 230 mg/dl (65-105)
[2023-07-13 11:44] VITALS: BP 126/75; PULSE 114; RESP 19; O2SAT 99
[2023-07-13] MEDS: INSULIN ASPART (*BKC) 100 UNITS/ML SUB-Q (11:45)
[2023-07-14 16:28] LABS: Glutamic acid decarboxylase AA 51 IU/mL (<5)
[2023-07-18 16:38] LABS: Zinc Transporter 8 Antibody 66 U/mL (<15)
--- NOTE | 2023-07-21 15:27 | PCCDE ---
07/21/23 Followed up with patient by phone. She has found a PCP and had her first appt to establish care. She is interested in DSMT, referral request faxed to Eduardo BROTHERS ([facility]) They are looking for an Endo but don't have one at this time. FJ
== END 2023-07-13 12:27 | disposition home or self-care (01) | DRG 420 ==
LOC: ANHED 16:10 → ANHICU 17:35
PROVIDERS: Internal Medicine; Physician Assistant; Admitting Provider General Practice; Emergency Provider Emergency Medicine; Visit Provider Hospitalist
DX: E11.10 Type 2 diabetes mellitus with ketoacidosis without coma (principal); E87.6 Hypokalemia; R63.0 Anorexia; R63.6 Underweight
CPT/HCPCS: 36415; 36600; 71046; 80048; 80053; 80307; 81001; 81025; 82375; 82550; 82805; 82948; 83036; 83050; 83690; 83735; 84100; 84443; 85025; 85027; 86341; 87641; 93005; 96374; 99285; A9270; C9113; J1650; J1815; J3480; J7030; J7040; J7050; J7120

== ENCOUNTER 2023-08-14 06:35 | Emergency (ER) | payer OTHER, SELFPAY ==
[2023-08-14] VITALS (14 sets, daily range): BP systolic 100–120; BP diastolic 76–88; PULSE 77–90; RESP 13–19; TEMP 36.5; O2SAT 100
--- NOTE | 2023-08-14 06:42 | ECG_ITS ---
SEE SCANNED COPY FOR CONFIRMED REPORT. MTDD
[2023-08-14 06:43] LABS: Glucose Point of Care 105 mg/dl (65-105)
[2023-08-14 06:49] LABS: Basophils Absolute Auto 0.1 K/mm3 (0.0-0.1); Basophils Percent Auto 0.6 % (0.2-1.2); Eosinophils Percent Auto 0.3 % (0-4.4); Hematocrit 40.1 % (37.0-47.0); Hemoglobin 12.7 g/dL (12.0-15.0); Immature Granulocyte Absolute 0.07 K/mm3 (0.00-0.031); Immature Granulocyte Percent A 0.6 % (0-0.5); Lymphocytes Percent Auto 15.5 % (18.3-44.2); Mean Corpuscular HGB Conc 31.7 g/dl (32-36); Mean Corpuscular Hemoglobin 31.3 pg (26-34); Mean Corpuscular Volume 98.8 fl (80-100); Mean Platelet Volume 8.3 fl (7.4-10.4); Monocytes Percent Auto 7.8 % (2.6-8.5); Neutrophils Absolute Auto 9.3 K/mm3 (1.3-6.7); Neutrophils Percent Auto 75.2 % (45.5-73.1); Platelet Count Result 314 k/mm3 (150-375); Red Blood Count 4.06 M/mm3 (4.2-5.4); Red Cell Distribution Width 13.8 % (11.5-14.5); White Blood Count 12.3 K/mm3 (4.5-10.0)
[2023-08-14 07:00] LABS: Alanine Aminotransferase 23 U/L (6-35); Albumin Level 4.4 g/dL (3.7-5.6); Alkaline Phosphatase 90 U/L (45-116); Anion Gap 7 mmol/L (4-12); Aspartate Amino Transferase 30 U/L (14-36); Bilirubin,Total 0.6 mg/dL (0.2-1.3); Blood Urea Nitrogen 13 mg/dL (8-21); Calcium 8.8 mg/dL (8.9-10.7); Carbon Dioxide 28 mmol/L (22-30); Chloride 104 mmol/L (98-107); Estimated CRCL calculation 110 ml/min; Estimated Glomerular Filt Rate > 60; Glucose 90 mg/dL (65-110); Potassium 3.8 mmol/L (3.4-5.0); Sodium 139 mmol/L (134-143)
--- NOTE | 2023-08-14 08:42 | ED.GENADULT ---
HPI - General Adult General Chief complaint: Unspecified Stated complaint: Muscle spasms/tremors, HUITRON Time Seen by Provider: 08/14/23 06:58 History of Present Illness HPI narrative: Patient presents with tremors when she woke up, she felt like she was unable to control her limbs and that she was shaking, she kept falling, hit her head against the bathtub, no loss of consciousness, and her mom gave her some juice and called EMS, they had wanted to go to [facility] where there care is but were brought here instead. Related Data Home Medications Medication Instructions Recorded Confirmed hydroxyzine pamoate 50 mg capsule 50 mg PO DAILY 07/10/23 07/10/23 trazodone 100 mg tablet 50 mg PO HS PRN Insomnia 07/10/23 07/10/23 Allergies Allergy/AdvReac Type Severity Reaction Status Date / Time pineapple Allergy Mild Unknown Verified 07/10/23 11:37 cyclobenzaprine Allergy Nausea and Verified 08/14/23 06:41 Vomiting kiwi Allergy Blister Verified 07/10/23 11:37 gal Allergy Blister Verified 07/10/23 11:37 Review of Systems Review of Systems: All systems reviewed & are unremarkable except as noted in HPI and below PMFSH Past Medical History Medical History (Updated 08/14/23 @ 08:00 by Malathi Ackerman MD) Constipation LLQ abdominal pain Ovarian cyst Straining during bowel movements Underweight Social History Social History Smoking status: Never smoker Second hand tobacco smoke exposure: Yes Alcohol intake: unknown Substance use: former Substance use type: marijuana and amphetamines Last use: 96 days ago Do You Feel Safe in your Home?: Yes Lack of Transportation: No Lack of Food: Never True Current Housing: I Have Housing Concerned About Future Housing: No Difficulty Paying Gas/Electric Bills: No Difficulty Paying for Meds: No Currently Unemployed: No Education: High School Diploma/GED Difficulty w/ Childcare or Family Care: No Living arrangements: with family Gender identity (if verbalized by the patient): Female Spiritual care concerns: No Exam Narrative: EXAMINATION OF ORGAN SYSTEMS/BODY AREAS: Constitutional: Vital signs per nursing GENERAL:[No acute distress, non-toxic appearing.] HEAD: Normal with no signs of head trauma. EYES: EOMI, conjunctiva normal ENT: Hearing grossly intact LUNGS: Nonlabored breathing. HEART: [Regular rate and rhythm] ABD: No distension EXT: Normal range of motion, moving all extremities normal SKIN: [No rashes or lesions.] NEURO: [Alert and oriented x 3. No gross focal sensory or strength deficits.] Speaking with clear speech. PSYCH: Normal affect Course Vital Signs Vital signs: Vital Signs Temperature 97.7 F 08/14/23 06:35 Pulse Rate 86 08/14/23 06:35 Respiratory Rate 14 08/14/23 06:35 Blood Pressure 120/88 08/14/23 06:35 Pulse Oximetry 100 08/14/23 06:35 Oxygen Delivery Room Air 08/14/23 06:35 Temperature 97.7 F 08/14/23 06:35 Pulse Rate 87 08/14/23 09:21 Respiratory Rate 18 08/14/23 09:21 Blood Pressure 113/76 08/14/23 09:21 Pulse Oximetry 100 08/14/23 09:21 Oxygen Delivery Room Air 08/14/23 06:35 Medical Decision Making [facility] Narrative Medical decision making narrative: Patient with history of new onset type 1 diabetes on insulin presents here after having tremors and not feeling well with multiple falls this morning, she was given juice and since then her blood sugar has been stable with EMS, and here upon initial arrival and after hours here. On exam she is well appearing, no indication for CT head per [place] rules, while I was in the room she did spasm her arms while still talking to me once which she states is similar to what was happening at home. Does not appear consistent with seizures or tremors or anything else that I feel is concerning. They would like her to be transferred [facility]
[2023-08-14 09:02] LABS: Glucose Point of Care 82 mg/dl (65-105)
--- NOTE | 2023-08-14 09:02 | PC.NURSE ---
blood sugar was 82 at at this time
== END 2023-08-14 09:23 | disposition home or self-care (01) ==
PROVIDERS: Emergency Medicine; Emergency Provider Emergency Medicine
DX: R25.1 Tremor, unspecified (principal); E10.9 Type 1 diabetes mellitus without complications; Z77.22 Contact with and (suspected) exposure to environmental tobacco smoke (acute) (chronic); Z79.4 Long term (current) use of insulin
CPT/HCPCS: 36415; 80053; 82948; 85025; 93005; 99284

== ENCOUNTER 2024-03-28 06:55 | Emergency (ER) | payer OTHER, SELFPAY ==
[2024-03-28 06:59] VITALS: BP 112/75; PULSE 79; RESP 20; TEMP 36.6; O2SAT 100
[2024-03-28 07:06] LABS: Glucose Point of Care 188 mg/dl (65-105)
[2024-03-28 07:48] LABS: BEDSIDEPREGUCG Negative (Negative)
[2024-03-28 07:51] LABS: Basophils Percent Auto 0.3 % (0.2-1.2); Eosinophils Percent Auto 0.4 % (0-4.4); Hemoglobin 14.3 g/dL (12.0-15.0); Immature Granulocyte Absolute 0.04 K/mm3 (0.00-0.031); Immature Granulocyte Percent A 0.4 % (0-0.5); Lymphocytes Absolute Auto 0.82 K/mm3 (0.9-3.2); Mean Corpuscular Hemoglobin 30.9 pg (26-34); Mean Corpuscular Volume 90.7 fl (80-100); Monocytes Absolute Auto 0.5 K/mm3 (0.1-0.6); Monocytes Percent Auto 5.3 % (2.6-8.5); Neutrophils Absolute Auto 8.7 K/mm3 (1.3-6.7); Neutrophils Percent Auto 85.6 % (45.5-73.1); Platelet Count Result 324 k/mm3 (150-375); Red Blood Count 4.63 M/mm3 (4.2-5.4); Red Cell Distribution Width 12.8 % (11.5-14.5); White Blood Count 10.2 K/mm3 (4.5-10.0)
[2024-03-28 07:52] LABS: Appearance Urine Clear (Clear); Color Urine Yellow (Yellow); pH Urine 5.5 (5.0-9.0)
[2024-03-28 07:53] LABS: Glucose Urine UA Negative (Negative); Ketones Urine Trace mg/dL (Negative); Protein Urine Trace mg/dL (Negative)
[2024-03-28 07:54] LABS: Add Urine Microscopic? NO; Bilirubin Urine Negative (Negative); Blood Urine Trace-intact (Negative); Leukocyte Esterase Ur Negative LEU/UL (Negative); Nitrate Urine Negative (Negative); Urobilinogen Urine 0.2 mg/dL (<2.0)
[2024-03-28 08:04] LABS: Alanine Aminotransferase 13 U/L (6-35); Albumin Level 4.7 g/dL (3.5-5.1); Alkaline Phosphatase 84 U/L (38-126); Anion Gap 6 mmol/L (4-12); Aspartate Amino Transferase 22 U/L (14-36); Bilirubin,Total 0.9 mg/dL (0.2-1.3); Blood Urea Nitrogen 15 mg/dL (7-17); Calcium 9.7 mg/dL (8.4-10.2); Carbon Dioxide 27 mmol/L (22-30); Chloride 105 mmol/L (98-107); Estimated CRCL calculation 110 ml/min; Estimated Glomerular Filt Rate > 60; Glucose 178 mg/dL (65-110); Lipase 69 U/L (23-300); Sodium 138 mmol/L (137-145)
--- NOTE | 2024-03-28 10:19 | ED.NAVMDI ---
HPI - Nausea/Vomiting/Diarrhea General Chief complaint: Nausea/Vomiting/Diarrhea Stated complaint: n/v Time Seen by Provider: 03/28/24 08:48 Source: patient and other (boyfriend) Mode of arrival: ambulatory Limitations: no limitations History of Present Illness HPI Narrative: Patient with T1DM (insulin dependent) presents with complaint of nausea, vomitingsince 11pm. Temp was 101-102F but didn't take any meds for this. Has had approximately 20 episodes of emesis, which became blood streaked but none for the last 30 minutes . No appetite. No chest pain or shortness of breath. Has been borderline DKA before. She took off brand Pepto tablets and Midol for cramps as well as antacids but isn't keeping them down. She uses a Dexcom to keep track of her blood glucose but it has been running approximately 30mg/dL off from her glucometer so they need recalibrated. Complainign of constipation alternating with diarrhea. Non bloody. Diagnosed with IBS-C at 14 years old. Feels dizzy and tremulous. Had been having epigastric and left sided abdominal pain. No prior abdominal surgeries. Sees ObGyn through [facility]. Marketing Officer Dr Fernandes at [facility] calls her a brittle diabetic. On continuous insulin with Novolog. Diagnosed with diabetes in June. Has endometriosis. LMP 03/18 was normal in that it was heavy. Bleeding trhough heavy tampons x2. No other vaginal bleeding or discharge since. Has PCOS and a history of 28 ovarian cysts. Related Data Home Medications ?Medication ?Instructions ?Recorded ?Confirmed ?Last Taken ?Type hydroxyzine pamoate 50 mg capsule 50 mg PO DAILY 07/10/23 07/10/23 Unknown History trazodone 100 mg tablet 50 mg PO HS PRN Insomnia 07/10/23 07/10/23 Unknown History Allergies Allergy/AdvReac Type Severity Reaction Status Date / Time adhesive Allergy Mild Hives Verified 03/28/24 07:40 pineapple Allergy Mild Unknown Verified 03/28/24 07:40 cyclobenzaprine Allergy Nausea and Verified 03/28/24 07:40 Vomiting kiwi Allergy Blister Verified 03/28/24 07:40 gal Allergy Blister Verified 03/28/24 07:40 [facility] Past Medical History Medical History Type 1 diabetes mellitus on insulin therapy Endometriosis Irritable bowel syndrome with predominant constipation PCOS (polycystic ovarian syndrome) Underweight Ovarian cyst Straining during bowel movements Constipation LLQ abdominal pain Family History Family History Mother PCOS (polycystic ovarian syndrome) Grandparent PCOS (polycystic ovarian syndrome) Social History Social History Smoking status: Never smoker Second hand tobacco smoke exposure: Yes Alcohol intake: unknown Substance use: former Substance use type: marijuana and amphetamines Last use: 96 days ago Do You Feel Safe in your Home?: Yes Lack of Transportation: No Lack of Food: Never True Current Housing: I Have Housing Concerned About Future Housing: No Difficulty Paying Gas/Electric Bills: No Difficulty Paying for Meds: No Currently Unemployed: No Education: High School Diploma/GED Difficulty w/ Childcare or Family Care: No Living arrangements: with family Gender identity (if verbalized by the patient): Female Spiritual care concerns: No Exam Narrative: GENERAL: Well-appearing, well-nourished, and in no acute distress. HEAD: Normocephalic, atraumatic. EYES: Non injected, non icteric ENT: Nares clear, no rhinorrhea or epistaxis. NECK: Supple. CHEST: Speaking in full sentences. No respiratory distress. HEART: Regular rate and rhythm. . ABDOMEN: Soft, nondistended. No tenderness to palpation; no rigidity or guarding. Not peritoneal. EXTREMITIES: Normal range of motion. No lower extremity edema. SKIN: Warm, dry, no rash. NEURO: No focal deficits. Alert and oriented x3. PSYCH: Normal mood and affect. Course Vital Signs Vital signs: Vital Signs Temperature 97.9 F 03/28/24 06:59 Pulse Rate 79 03/28/24 06:59 Respiratory Rate 20 03/28/24 06:59 Blood Pressure 112/75 03/28/24 06:59 Pulse Oximetry 100 03/28/24 06:59 Oxygen Delivery Room Air 03/28/24 06:59 Temperature 97.9 F 03/28/24 06:59 Pulse Rate 72 03/28/24 15:02 Respiratory Rate 18 03/28/24 15:02 Blood Pressure 111/76 03/28/24 15:02 Pulse Oximetry 100 03/28/24 15:02 Oxygen Delivery Room Air 03/28/24 06:59 MDM - Nausea/Vomiting/Diarrhea MDM Narrative Medical decision making narrative: Patient presents with N/V and uncontrolled blood sugars. In the emergency department they are afebrile with vital signs within normal limits. test negative. Patient has hyperglycemia without anion gap or acidosis. TSH abnormal. T4 and T3 ordered. I did attempt to reassess patient at 1:15 p.m. but she was not in a room, presumably in the bathroom. I did ask the RN to reassess patient when she is back in the room and notify me if patient is in need of another dose of either pain medicine or nausea medication we await lab tests. Patient is complaining of pain in cramping but no nausea. Ketorolac and Bentyl ordered. Her T4 is normal suggestive of subclinical hyperthyroidism or, less likely, T3 toxicosis. In sum, This patient presents with abdominal pain of unclear etiology. Their evaluation has not identified an emergent etiology for the abdominal pain. Specifically, given the very benign exam, normal laboratory values, and lack of significant risk factors, I have a very low suspicion for appendicitis, ischemic bowel, bowel perforation, or any other life threatening disease. I have discussed with the patient the level of uncertainty with undifferentiated abdominal pain and clearly explained the need to follow-up as noted on the discharge instructions, or return to the Emergency Department immediately if the pain worsens, develops fever, persistent and uncontrollable vomiting, or for any new symptoms or concerns. Discharged with Rx for analgesic medications, ZOfran and Bentyl Differential Diagnosis Differential diagnosis: Likely food poisoning, gastroenteritis, drug-induced nausea and vomiting, dehydration and other (; DKA versus hyperglycemia; acute viral syndrome; UTI; thyroid dysfunction ) Lab Data Attestation: I reviewed the patient's lab results. Lab results narrative: Very mild leukocytosis 03/28/24 07:42 03/28/24 07:42 Labs: Lab Results 03/28/24 03/28/24 03/28/24 Range/Units 07:04 07:42 07:46 WBC 10.2 H (4.5-10.0) K/mm3 RBC 4.63 (4.2-5.4) M/mm3 Hgb 14.3 (12.0-15.0) g/dL Hct 42.0 (37.0-47.0) % MCV 90.7 (80-100) fl MCH 30.9 (26-34) pg MCHC 34.0 (32-36) g/dl RDW 12.8 (11.5-14.5) % Plt Count 324 (150-375) k/mm3 MPV 9.0 (7.4-10.4) fl Immature Gran % (Auto) 0.4 (0-0.5) % Neut % (Auto) 85.6 H (45.5-73.1) % Lymph % (Auto) 8.0 L (18.3-44.2) % [place] % (Auto) 5.3 (2.6-8.5) % Eos % (Auto) 0.4 (0-4.4) % Baso % (Auto) 0.3 (0.2-1.2) % Lymph # (Auto) 0.82 L (0.9-3.2) K/mm3 [place] # (Auto) 0.5 (0.1-0.6) K/mm3 Eos # (Auto) 0.0 (0-0.3) K/mm3 Baso # (Auto) 0.0 (0.0-0.1) K/mm3 Abs Immat Gran (auto) 0.04 H (0.00-0.031) K/mm3 Absolute Neuts (auto) 8.7 H (1.3-6.7) K/mm3 Absolute Nucleated RBC 0.000 (0.0-0.012) K/mm3 Nucleated RBC % 0.0 (0.0-0.2) % Sodium 138 (137-145) mmol/L Potassium 4.0 (3.4-5.0) mmol/L Chloride 105 (98-107) mmol/L Carbon Dioxide 27 (22-30) mmol/L Anion Gap 6 (4-12) mmol/L BUN 15 (7-17) mg/dL Creatinine 0.60 L (0.7-1.0) mg/dL Estim Creat Clear Calc 110 ml/min Estimated GFR > 60 (59 - ) Glucose 178 H (65-110) mg/dL POC Capillary Glucose 188 H (65-105) mg/dl Calcium 9.7 (8.4-10.2) mg/dL Magnesium 1.8 (1.6-2.3) mg/dL Total Bilirubin 0.9 (0.2-1.3) mg/dL AST 22 (14-36) U/L ALT 13 (6-35) U/L Alkaline Phosphatase 84 (38-126) U/L Total Protein 7.0 (6.3-8.2) g/dL Albumin 4.7 (3.5-5.1) g/dL Lipase 69 (23-300) U/L TSH 0.323 L (0.465-4.680) uIU/mL Free T4 1.52 (0.78-2.19) ng/dL Free T3 pg/mL 3.4 (3.0-4.7) pg/mL Urine Color Yellow (Yellow) Urine Appearance Clear (Clear) Urine pH 5.5 (5.0-9.0) Ur Specific [place] 1.020 (1.001-1.035) Urine Protein Trace (Negative) mg/dL Urine Glucose (UA) Negative (Negative) mg/dL Urine Ketones Trace H (Negative) mg/dL Ur Blood (Man) Trace-intact H (Negative) Urine Nitrate Negative (Negative) Urine Bilirubin Negative (Negative) Urine Urobilinogen 0.2 (<2.0) mg/dL Leukocyte Esterase Rfl Negative (Negative) JOSE ALFREDO/UL POC Urine HCG, Qual Negative (Negative) C. difficile (PCR) Influenza A (RT-PCR) (Negative) Influenza B (RT-PCR) (Negative) SARS-CoV-2 RNA (RT-PCR) (Negative) 03/28/24 Range/Units 11:18 WBC (4.5-10.0) K/mm3 RBC (4.2-5.4) M/mm3 Hgb (12.0-15.0) g/dL Hct (37.0-47.0) % MCV (80-100) fl MCH (26-34) pg MCHC (32-36) g/dl RDW (11.5-14.5) % Plt Count (150-375) k/mm3 MPV (7.4-10.4) fl Immature Gran % (Auto) (0-0.5) % Neut % (Auto) (45.5-73.1) % Lymph % (Auto) (18.3-44.2) % [place] % (Auto) (2.6-8.5) % Eos % (Auto) (0-4.4) % Baso % (Auto) (0.2-1.2) % Lymph # (Auto) (0.9-3.2) K/mm3 [place] # (Auto) (0.1-0.6) K/mm3 Eos # (Auto) (0-0.3) K/mm3 Baso # (Auto) (0.0-0.1) K/mm3 Abs Immat Gran (auto) (0.00-0.031) K/mm3 Absolute Neuts (auto) (1.3-6.7) K/mm3 Absolute Nucleated RBC (0.0-0.012) K/mm3 Nucleated RBC % (0.0-0.2) % Sodium (137-145) mmol/L Potassium (3.4-5.0) mmol/L Chloride (98-107) mmol/L Carbon Dioxide (22-30) mmol/L Anion Gap (4-12) mmol/L BUN (7-17) mg/dL Creatinine (0.7-1.0) mg/dL Estim Creat Clear Calc ml/min Estimated GFR (59 - ) Glucose (65-110) mg/dL POC Capillary Glucose (65-105) mg/dl Calcium (8.4-10.2) mg/dL Magnesium (1.6-2.3) mg/dL Total Bilirubin (0.2-1.3) mg/dL AST (14-36) U/L ALT (6-35) U/L Alkaline Phosphatase (38-126) U/L Total Protein (6.3-8.2) g/dL Albumin (3.5-5.1) g/dL Lipase (23-300) U/L TSH (0.465-4.680) uIU/mL Free T4 (0.78-2.19) ng/dL Free T3 pg/mL (3.0-4.7) pg/mL Urine Color (Yellow) Urine Appearance (Clear) Urine pH (5.0-9.0) Ur Specific [place] (1.001-1.035) Urine Protein (Negative) mg/dL Urine Glucose (UA) (Negative) mg/dL Urine Ketones (Negative) mg/dL Ur Blood (Man) (Negative) Urine Nitrate (Negative) Urine Bilirubin (Negative) Urine Urobilinogen (<2.0) mg/dL Leukocyte Esterase Rfl (Negative) JOSE ALFREDO/UL POC Urine HCG, Qual (Negative) C. difficile (PCR) Cancelled Influenza A (RT-PCR) Negative (Negative) Influenza B (RT-PCR) Negative (Negative) SARS-CoV-2 RNA (RT-PCR) Negative (Negative) Discharge Plan Discharge Clinical Impression: Hyperglycemia due to type 1 diabetes mellitus Patient Disposition: Home, Self-Care Condition: Stable Instructions: Antibiotic Form, Managing Diabetes During Sick Days (ED), Diabetic Hyperglycemia (ED) Additional Instructions: Your lab work did not identify a clear etiology for your symptoms. It is important that you follow-up with your primary care physician and budget report clerk. If you do not have a primary care physician the name of the doctors listed below. Return to the Emergency Department immediately if the pain worsens, develop fever, persistent and uncontrollable vomiting, or for any new symptoms or concerns. Acetaminophen/Tylenol (maximum 4000 mg per day) is safe to take with NSAIDs (ibuprofen/Motrin) for pain relief. The Bentyl can help with abdominal cramping. For nausea, you can use the oral disintegrating tablets of ondansetron/Zofran. Patient Language: [place] Prescriptions: New ibuprofen 600 mg tablet 600 mg PO TID PRN (Reason: pain) Qty: 20 0RF ondansetron 4 mg tablet,disintegrating 4 mg PO Q8H PRN (Reason: nausea and vomiting) Qty: 7 0RF acetaminophen 500 mg capsule 1,000 mg PO Q6H PRN (Reason: pain) Qty: 20 0RF dicyclomine 10 mg capsule 10 mg PO BID PRN (Reason: abdominal pain) Qty: 10 0RF No Action trazodone 100 mg tablet 50 mg PO HS PRN (Reason: Insomnia) hydroxyzine pamoate 50 mg capsule 50 mg PO DAILY Rx Instructions: for anxiety symptoms insulin glargine [Lantus U-100 Insulin] 100 unit/mL Solution 35 unit subcut DAILY Qty: 1 1RF insulin aspart U-100 [Novolog U-100 Insulin aspart] 100 unit/mL Solution 2 - 4 unit subcut HS Qty: 1 1RF Protocol: Insulin Corrective High-Dose Condition: glucose < 70 mg/dl Dose/Route: Follow hypoglycemia order Condition: glucose 70-200 mg/dl Dose/Route: No additional insulin Condition: glucose 201-250 mg/dl Dose/Route: 2 units sub-Q Condition: glucose 251-300 mg/dl Dose/Route: 2 units sub-Q Condition: glucose 301-350 mg/dl Dose/Route: 3 units sub-Q Condition: glucose 351-400 mg/dl Dose/Route: 4 units sub-Q Condition: glucose > 400 mg/dl Dose/Route: Call insulin aspart U-100 [Novolog U-100 Insulin aspart] 100 unit/mL Solution 4 - 8 unit subcut TIDWM Qty: 1 1RF Protocol: Insulin Corrective High-Dose Condition: glucose < 70 mg/dl Dose/Route: Follow hypoglycemia order Condition: glucose 70-200 mg/dl Dose/Route: No additional insulin Condition: glucose 201-250 mg/dl Dose/Route: 4 units sub-Q Condition: glucose 251-300 mg/dl Dose/Route: 5 units sub-Q Condition: glucose 301-350 mg/dl Dose/Route: 6 units sub-Q Condition: glucose 351-400 mg/dl Dose/Route: 8 units sub-Q Condition: glucose > 400 mg/dl Dose/Route: Call Protocol Text: *No Correction Dose at Bedtime* insulin aspart U-100 [Novolog U-100 Insulin aspart] 100 unit/mL Solution 10 unit subcut TIDWM Qty: 1 1RF Artificial Tears([id number]) 1-0.2-0.2 % Drops 1 drp EACH EYE QID PRN (Reason: Dry Eye(S)) Qty: 1 0RF potassium chloride 20 mEq tablet,ER particles/crystals 20 meq PO DAILY Qty: 10 0RF Follow-up/Referrals: Farzad Babcock MD [Physician] - (family practice) UNKNOWN,DOCTOR [Primary Care Provider] - Stand Alone Forms: Work/School Release IP Time of Disposition: 14:49
[2024-03-28] MEDS: MORPHINE SULFATE (*CRX) 2 MG/ML INJ IV PUSH (11:29)
[2024-03-28] MEDS: SODIUM CHLORIDE 0.9% IV 1,000 ML 999 ML IV CONT (11:30)
[2024-03-28] MEDS: FAMOTIDINE 20 MG/2 ML VIAL IV PUSH (11:30)
[2024-03-28] MEDS: ONDANSETRON INJ 4 MG/2 ML VIAL IV PUSH (11:30)
[2024-03-28 11:33] VITALS: BP 110/75; PULSE 71; RESP 18; O2SAT 100
[2024-03-28 12:04] LABS: Influenza A QL RT-PCR Negative (Negative); Influenza B QL RT-PCR Negative (Negative); SARS-CoV-2 RNA PCR Negative (Negative)
[2024-03-28 12:34] LABS: Magnesium 1.8 mg/dL (1.6-2.3)
[2024-03-28 13:06] LABS: Thyroid Stimulating Hormone 0.323 uIU/mL (0.465-4.680)
[2024-03-28 13:52] LABS: Free T4 Free Thyroxine 1.52 ng/dL (0.78-2.19)
[2024-03-28] MEDS: KETOROLAC 15 MG/ML VIAL (*BKC) IV PUSH (14:06)
[2024-03-28] MEDS: DICYCLOMINE HCL 10 MG CAPSULE PO (14:06)
[2024-03-28 15:02] VITALS: BP 111/76; PULSE 72; RESP 18; O2SAT 100
[2024-03-30 03:28] LABS: T3 Free 3.4 pg/mL (3.0-4.7)
--- OUTSIDE RECORDS SUMMARY | 2024-04-04 01:20 | XMS_ITS | Encounter Summary ---
Author Organization [facility] Address [address] [place] [address] Care Team Providers Care Associate Material Handler Name Role Phone Eduardo López PA-C Primary Care Provider Reason for Visit * Reason Onset Date Comments Appointment 08/25/2023 Encounter Details Date Type Department Care Team (Late st Contact Info) Description 08/25/2023 Telephone [facility] - Endocrinology [address] [place] [address], [place] [address] Meghana White MD [address] [place] [address] [place] [address] Appointment Social History Tobacco Use Types Packs/Day Years Used Date Smoking Tobacco: Passive Smo ke Exposure - Never Smoker Smokeless Tobacco: Never Alcohol Use Standard Drinks/Week Comments No 0 (1 standard drink = 0.6 oz pur e alcohol) Sex and Gender Information Value Date Recorded Sex Assigned at Not on file Gender Identity Not on file Sexual Orientation Not on file documented as of this encounter Functional Status Functional Status Response Date of Assess ment Is person deaf or have serious hearing difficult y? No 12/30/2013 Is person blind or have serious difficulty seein g? No 12/30/2013 Does person have serious dif ficulty walking/climbing stairs? No 12/30/2013 Does person have difficulty dressing/bathing? No 12/30/2013 Does person have difficulty doing errands alone? No 12/30/2013 Cognitive Status Response Date of Assessm ent Does person have difficulty concentrating/remembering/making decisions? No 12/30/2013 documented as of this encounter Miscellaneous Notes * Telephone Encounter - Azeb Arciniega - 08/25/2023 11:15 AM CDT Pt calling to let you know she received her tandom pump and decom 6 in the mail, she needs an apt to get the pump and decom on Pt call back # [phone] documented in this encounter Plan of Treatment Upcoming Encounters Date Type Department Care Team (Late st Contact Info) Description 04/09/2024 8:40 AM MARKSMANSHIP INSTRUCTOR Office Visit [facility] - Endocrinology [address] [facility], [place] [id number] Hilario Traore MD [address] [place] [address] documented as of this encounter Visit Diagnoses Not on filedocumented in this encounter Care Teams Associate Material Handler Relationship Specialty Start Date End Date Eduardo López PA-C [address] [place] [address] PCP - General Physician Slotter Operator Helper 07/25/23 documented as of this encounter
--- OUTSIDE RECORDS SUMMARY | 2024-04-04 01:20 | XMS_ITS | Clinical Summary ---
Author Organization [facility] Address [address] [place] [address] Care Team Providers Care Banking Management Consulting Manager Name Role Phone Eduardo López PA-C Primary Care Provider [phone] Source Comments [facility],non-owned Affiliates and Associated Physician Practices is amultiple site organization consisting of ambulatory clinics and hospital sitesin [place], [place], [place] and [place]. This disclosure is being madepursuant to the Care Everywhere program and may not contain all information available regarding this patient. Last updated 17.[facility] [employer] Allergies Active Allergy Reactions Criticality Noted Date Comments Cyclobenzaprine Nausea and/or Vomiting 02/12/20 23 Kiwi Extract Swelling High 07/18/2023 Tongue swells with blisters Shakir Flavor Swelling High 07/18/2023 Tongue swelling and blisters Pineapple Swelling,Unknown 07/18/2023 Medications * Be aware that medications may not be up to date on this document. Alwaysverify current medications with the patient. Medication Sig Dispensed Refills Start Date End Date Status ibuprofen (MOTRIN) 200 MG tablet Take 200 mg by mouth every 6 hours as needed for Pain. Active acetaminophen (TYLENOL) 500 MG tablet Take 500 mg by mouth every 4 hours as needed for Pain. Maximum allowable Acetaminophen amount = 4 Grams (4000 mg) / 24 hours. Active SPRINTEC 28 0.25-35 MG-MCG tablet Take 1 tablet by mouth once daily 02/20/2019 Active OneTouch Verio test strip 1 STRIP NEEDED USE INSTRUCTED 07/18/2023 Active blood glucose test strip Use 1 (one) strip as instructed as needed 07/18/2023 Active Continuous Glucose Sensor (FreeStyle Louis 3 Sensor) MISC APPLY TO THE BACK OF THE ARM EVERY 14 DAYS 07/21/2023 Active Lantus SoloStar pen Inject 35 (thirty five) Units subcutaneously every 24 hours 15 mL 11 07/25/2023 Active Glucagon (Baqsimi Two Pack) 3 MG/DOSE POWD [place] 3 mg into the nose as directed 1 Each 2 07/25/2023 Active Acetone, Urine, Test (Ketone Test) STRP 1 Each by In Vitro route as needed 100 strip 11 07/25/2023 Active Continuous Glucose Transmitter (Dexcom G6 Transmitter) MISCIndications:Ty pe 1 diabetes mellitus without complication (HCC) Use 1 Each Every 90 days 1 Each 3 08/15/2023 Active Continuous Glucose Sensor (Dexcom G6 Sensor) MISCIndications:Ty pe 1 diabetes mellitus without complication (HCC) Use 1 Each every 10 days 3 Each 11 08/15/2023 Active insulin lispro (HumaLOG KwikPen) 100 UNIT/ML pen Inject 8 (eight) Units to 13 (thirteen) Units subcutaneously 3 times daily before meals 8 units with 50-60 gm carb of meals, and add 3 units if glucose over 200, add 5 units if over 300, daily max 50 units 30 mL 11 11/02/2023 Active etonogestrel (Nexplanon) 68 MG implant Inject 1 implant by subcutaneous route. 09/06/2023 Active insulin pen needle (Bd Uf Iii) 31G X 8 MM needleIndications: Type 1 diabetes mellitus without complication (HCC) 1 (one) Each 4 times daily 200 Each 11 11/23/2023 Active insulin aspart (NovoLOG FLEXPEN) pen INJECT 8- 13 UNITS SUBCUTANEOUSLY THREE TIMES DAILY BEFORE MEALS WITH 50-60 GRAMS OF CARBS MEALS AND ADD 3 UNITS IF GLUCOSE OVER 200, ADD 5 UNITS IF OVER 300, DAILY MAX 50 UNITS DAILY Active Glucagon (Gvoke HypoPen 2-Pack) 0.5 MG/0.1ML SOAJ Inject 0.5 mg subcutaneously as directed 0.2 mL 01/02/2024 Active Active Problems Problem Noted Date Diagnosed Date Jaundice 12/25/2013 Assessment & Plan (12/25/2013 4:11 AM CDT): Assessment: Himanshu is a 8yo F with history of brown recluse bite admitted for 1-day history of jaundice and scleral icterus. Total bili is elevated at 3.7, direct bili normal, H/H 8.6/25.3, UA with 1+ blood but no bili. Pt is moderately jaundiced on exam with spleen and liver tips palpable. Likely due to hemolysis as a result of brown recluse toxin. Rash is still present on extremities so will have benadryl PRN for itching. Will monitor H/H q8h, currently low, also will get type/screen in the case of acute drop in hgb requiring transfusion. Plan: -Admit to purple teamGm -MNVF D5/HNS @ 75ml/hr -Benadryl PRN itching -Regular diet -H/H q8h -Vitals q8h Acute hemolysis secondary to brown recluse bite 12/21/2013 Assessment & Plan (12/30/2013 11:53 AM CDT): Assessment: Himanshu is a 8 yr old female with acute hemolysis secondary to brown recluse bite. Her symptoms (jaundice) have resolved and H/H is improving on subsequent checks. Would anticipate continued improvement in H/H without further intervention. Plan: - will d/c home today Assessment & Plan (12/29/2013 12:27 PM CDT): Assessment: Himanshu is a 8 yr old female with acute hemolysis secondary to brown recluse bite. The additional sequale of headaches, juandice, and abdominal pain is mostly assoicated with the recent spider bite. Plan: Problem: 1. Brown Recluse Bite with sequale Saline locked- stopped IVF US showed mild mesenteric adenitis- most likely contributing to her abdominal pain, treat with hydration, ibuprofen Regular Diet Vitals q4h Benadryl PRN itching Nexium 20mg AM H & H Consult Toxicology, per recs Her sx will resolve and mostly disapate soon. Can be discharged home if her symptoms continue to be stable and her labs continue to trend upward. Headaches- most likely tension headaches, will keep a journal dafter discharge and the symptoms become more persistent and increase in severity then will consider a neurology consult at that time after she follows up with her PCM Assessment & Plan (12/28/2013 1:55 PM CDT): Assessment: Himanshu is a 8 yr old female with acute hemolysis secondary to brown recluse bite. The additional sequale of headaches, juandice, and abdominal pain is mostly assoicated with the recent spider bite. Plan: Problem: 1. Brown Recluse Bite with sequale Renal function is mildly decreased but improved BUN/Cr (6.8/.49). Continue to monitor for hemolysis with a decreased H/H (7.7/23.3) Will continue to treat with PRBC if patient becomes symptomatic or if the HG is less than 7. Consult toxicology, follow per recs Continue with MIVF Regular Diet Vitals q4h Benadryl PRN itching Nexium 20mg q12h H&H panel AM: BMP +Ca, CK, LDH ( last lab draw on Monday, then D/C these) Assessment & Plan (12/27/2013 2:00 PM CDT): Assessment: Himanshu is a 8 yr old female with acute hemolysis secondary to brown recluse bite. The additional sequale of headaches, juandice, and abdominal pain is mostly assoicated with the recent spider bite. Plan: Problem: 1. Brown Recluse Bite with sequale Renal function is mildly decreased but improved BUN/Cr (5.7/.47). Continue to monitor for hemolysis with a decreased H/H (7.5/22.6) Will continue to treat with PRBC if patient becomes symptomatic or if the HG is less than 7. Consult toxicology, follow per recs Continue with MIVF Regular Diet Vitals q4h Benadryl PRN itching Nexium 20mg q12h H&H panel AM: BMP +Ca, CK, LDH Assessment & Plan (12/25/2013 6:19 PM CDT): Assessment: Ongoing hemolysis with hemoglobin now at 7.5 Plan: Transfusion of one unit red blood cells. Assessment & Plan (12/22/2013 9:51 AM CDT): Assessment: Brown recluse spider bite VS strep cellulitis. Plan: Clindamycin Motrin PRN pain Regular diet, encourage fluid intake Assessment & Plan (12/21/2013 10:14 AM CDT): Assessment: 8 yo with lesion on LE consistent with appearance of brown recluse spider bite and diffuse rash and laboratory evidence of hemolysis (decreasing hbg, elevated bili, hematuria). Brown recluse spider bite VS strep cellulitis. Evidence does not support the use of steroids at this time. Plan: IV clindamycin Benadryl 25mg Q8H for pruritis Motrin PRN pain, will consider other options if pain is not well controlled. MIVF Regular diet, encourage fluid intake Vitals Q8H, monitor I/O's CBC tomorrow AM Assessment & Plan (12/21/2013 9:19 AM CDT): Assessment: 8 yo with erythematous, patchy, raised, itchy rash of calf. Initially begin as small bruise to posterior calf, enlarging from about 1mm. Brown recluse spider bite VS cellulitis. Plan: IV clindamycin Benadryl 25mg Q8H for rash Motrin PRN pain MIVF - May increase to 1 1/2 MIVF if evidence of hemolysis on CBC or poor PO intake Regular diet Vitals Q8H, monitor I/O's Monitor for hemolysis in the case of possible brown recluse spider bite- repeat CBC today Resolved Problems Problem Noted Date Diagnosed Date Resolved Date Plantar wart 07/19/2010 12/21/2013 Overview (07/19/2010): single lesion, 2 mm L great toe, uncertain onset. PAINFUL BUMP L GREAT TOE 07/19/2010 Overview (07/19/2010): The lesion is non-specific and subtle; pain is difficult to assess. Consider bony exostosis, pressure-induced callosity, atypical onychocryptosis. Immunizations Name Administration Dates Next Due DTaP VACCINE IM (6wk-6yrs) 04/26/2005,,2003,10/20 HEP A PED/ADULT VACCINE 11/03/2008,12/25/2006 HEP B VACCINE, PED/ADOL 03/05/2004,2003, HIB VACCINE 04/26/2005, 4,2003,10/20 Human Papilloma Virus Nineva lent Vaccine 09/22/2017,03/21/2017 INFLUENZA VACCINE 03/21/2017 MENINGOCOCCAL B RECOMBINANT, 2 OR 3 DOSE, IM 2019 MENINGOCOCCAL CONJUGATE (MCV4P) 2019,11/07 MMR 11/05/2008, 9,04/26/2005,09/23 PNEUMOCOCCAL PCV7 CONJ, PEDS 09/23/2004, 03/05/2004,2003,10/20 POLIO IPV 03/05/2004,2003,2003 TDAP (7yrs+) 11/07/2014 VARICELLA 03/06/2008,09/23/2004 Social History Tobacco Use Types Packs/Day Years Used Date Smoking Tobacco: Passive Smo ke Exposure - Never Smoker Smokeless Tobacco: Never Alcohol Use Standard Drinks/Week Comments No 0 (1 standard drink = 0.6 oz pur e alcohol) Sex and Gender Information Value Date Recorded Sex Assigned at Not on file Gender Identity Not on file Sexual Orientation Not on file Last Filed Vital Signs Vital Sign Reading Time Taken Comments Blood Pressure 100/64 01/02/2024 8:16 AM CDT Pulse 79 01/02/2024 8:16 AM CDT Temperature 36 ??C (96.8 ??F) 12/30/2013 4:20 AM CDT Respiratory Rate 18 12/30/2013 4:20 AM CDT Oxygen Saturation 96% 01/02/2024 8:16 AM CDT Inhaled Oxygen Concentration - - Weight 60.3 kg (133 lb) 11/17/2023 8:45 AM CDT Height 162.6 cm (5' 4 ) 07/25/2023 8:28 AM CDT Body Mass Index 22.83 07/25/2023 8:28 AM CDT Plan of Treatment Upcoming Encounters Date Type Department Care Team (Late st Contact Info) Description 04/09/2024 8:40 AM PLUGGING MACHINE OPERATOR Office Visit [facility] - Endocrinology [address] [place] [phone] Hilario Traore MD [address] [place] [id number] Health Maintenance Due Date Last Done Comments PNEUMOCOCCAL VACCINE (1 of 1 - PPSV23 or PCV20) 08/20/2009 09/23/2004, 03/05/2004, 2003, Additional history exists HIV SCREENING 08/20/2018 CHLAMYDIA/GONORRHEA SCREENING 2019 MENINGOCOCCAL (Group B) VACC INE (2 of 2 - Risk Trumenba 2-dose series) 02/21/2020 2019 HEPATITIS C SCREENING 08/16/2021 COVID-19 VACCINE (1 - 2023-2 5 season) 2023 INFLUENZA VACCINE (#1) 2023 03/21/2017 DEPRESSION SCREENING 03/27/2024 DTAP/TDAP/TD VACCINES (6 - T d or Tdap) 11/07/2024 11/07/2014, 04/26/2005, 03/05/2004, Additional history exists ZOSTER VACCINE (1 of 2) 08/20/2053 HEPATITIS B VACCINE Completed 03/05/2004, 2003, 2003 HIB VACCINE Completed 04/26/2005, 02/24, 2003, Additional history exists HPV VACCINE Completed 09/22/2017, 03/21/2017 MENINGOCOCCAL VACCINE Completed 2019, 015 Care Teams Banking Management Consulting Manager Relationship Specialty Start Date End Date Eduardo López, PABennieC [address] [place] [address] PCP - General Physician Clay Molder 07/25/23
--- OUTSIDE RECORDS SUMMARY | 2024-04-04 01:20 | XMS_ITS | Referral Summary ---
Author Organization [facility] Address [address] [place] [address] Care Team Providers Care Glassworker Name Role Phone Eduardo López PA-C Primary Care Provider [phone] Source Comments [facility],non-owned Affiliates and Associated Physician Practices is amultiple site organization consisting of ambulatory clinics and hospital sitesin [place], [place], [place] and [place]. This disclosure is being madepursuant to the Care Everywhere program and may not contain all information available regarding this patient. Last updated 17.[facility] Allergies Active Allergy Reactions Criticality Noted Date [...] Glucagon (Baqsimi Two Pack) 3 MG/DOSE POWD [place] 3 mg into the nose as directed [...] requiring transfusion. Plan: -Admit to purple teamGm -MEVF D5/HNS @ 75ml/hr -Benadryl PRN itching -Regular [...] Mass Index 22.83 07/25/2023 8:28 AM CDT Functional Status Functional Status Response Date of [...] person have difficulty concentrating/remembering/making decisions? No 12/30/2013 Plan of Treatment Upcoming Encounters Date Type Department Care Team (Late st Contact Info) Description 04/09/2024 8:40 AM DIRECTOR OF COMMUNITY EDUCATION Office Visit [facility] - Endocrinology [address] [place] [phone] Hilario Traore MD [address] [place] [address] Care Teams Glassworker Relationship Specialty Start Date End Date Eduardo López, PABennieC [address] [place] [address] PCP - General Physician [employer] Engineer 07/25/23
--- OUTSIDE RECORDS SUMMARY | 2024-04-04 01:20 | XMS_ITS | Encounter Summary ---
Author Organization [facility] Address [address] [place] [address] Care Team Providers Care Manager Project Name Role Phone Eduardo López PA-C Primary Care Provider Encounter Details Date Type Department Care Team (Latest Contact Info) Description 07/25/2023 10:50 AM CDT - 07/25/2023 11:59 PM CDT Hospital Encounter [facility] OP DRAW STATION [address] [place] [phone] Discharge Disposition: Home or Self Care Social History Tobacco Use Types Packs/Day Years [...] No 12/30/2013 documented as of this encounter Medications at Time of Discharge Medication Sig Dispensed Refills Start Date End Date acetaminophen (TYLENOL) 500 MG tablet Take 500 mg by mouth every 4 hours as needed for Pain. Maximum allowable Acetaminophen amount = 4 Grams (4000 mg) / 24 hours. Acetone, Urine, Test (Ketone Test) STRP 1 Each by In Vitro route as needed 100 strip 11 07/25/2023 blood glucose test strip Use 1 (one) strip as instructed as needed 07/18/2023 Continuous Glucose Sensor (FreeStyle Louis 3 Sensor) MISC APPLY TO THE BACK OF THE ARM EVERY 14 DAYS 07/21/2023 Glucagon (Baqsimi Two Pack) 3 MG/DOSE POWD [place] 3 mg into the nose as directed 1 Each 2 07/25/2023 ibuprofen (MOTRIN) 200 MG tablet Take 200 mg by mouth every 6 hours as needed for Pain. Lantus SoloStar pen Inject 35 (thirty five) Units subcutaneously every 24 hours 15 mL 11 07/25/2023 OneTouch Verio test strip 1 STRIP NEEDED USE INSTRUCTED 07/18/2023 SPRINTEC 28 0.25-35 MG-MCG tablet Take 1 tablet by mouth once daily 02/20/2019 insulin aspart (NovoLOG FLEXPEN) pen Inject 8 (eight) Units to 13 (thirteen) Units subcutaneously 3 times daily before meals 8 units with 50-60 gm carb of meals, and add 3 units if glucose over 200, add 5 units if over 300, daily max 50 units 30 mL 11 07/25/2023 11/02/2023 ReliOn Pen [place] 32G X 4 MM MISCIndications:Type 1 diabetes mellitus without complication (HCC) Inject 1 Each subcutaneously 4 times daily 200 Each 11 07/25/2023 11/23/2023 documented as of this encounter Plan of Treatment Upcoming Encounters Date Type Department Care Team (Late st Contact Info) Description 04/09/2024 8:40 AM GROUP CONTROLLER Office Visit [facility] - Endocrinology [address] [place] [address], [place] [phone] Hilario Traore MD [address] [facility] [address] [facility] [place] [address] documented as of this encounter Procedures Procedure Name Priority Date/Time Associated Diagnosis Comments MICROALB/CREAT RATIO URINE RANDOM PANEL Routine 07/25/2023 11:52 AM CDT Type 1 diabetes mellitus without complication (HCC) C-PEPTIDE Routine 07/25/2023 11:52 AM CDT Type 1 diabetes mellitus without complication (HCC) GLUTAMIC ACID DECARBOXYLASE (PATRICIA) ANTIBODY Routine 07/25/2023 11:52 AM CDT Type 1 diabetes mellitus without complication (HCC) CBC W AUTO DIFFERENTIAL Routine 07/25/2023 11:52 AM CDT Type 1 diabetes mellitus without complication (HCC) COMPREHENSIVE METABOLIC PANEL Routine 07/25/2023 11:52 AM CDT Type 1 diabetes mellitus without complication (HCC) TSH Routine 07/25/2023 11:52 AM CDT Type 1 diabetes mellitus without complication (HCC) LIPID PROFILE Routine 07/25/2023 11:52 AM CDT Type 1 diabetes mellitus without complication (HCC) documented in this encounter Results * C-PEPTIDE (07/25/2023 11:52 AM CDT) C-Peptide 0.7 0.5 - 3.3 ng/mL 07/26/2023 9:33 PM CDT [employer] ([facility]) Comment: INTERPRETIVE INFORMATION: Serum, C-Peptide Reference Interval applies to fasting specimens. To convert to nmol/L, multiply by 0.33 Performed By: [facility] [address] [place] [address] Peer Counselor: Luis Campoverde MD, PhD CLIA Number: [id number] Blood BLOOD SPECIMEN / Unknown Lab Venipuncture / Unknown 07/25/2023 11:52 AM CDT 07/25/2023 12:11 PM CDT Meghana White MD LAB - CHEMISTRY ORDE SELIN Performing Organization Address City/State/[facility] de Phone Number [facility] [employer] ([facility]) [address] * (ABNORMAL) GLUTAMIC ACID DECARBOXYLASE (PATRICIA) ANTIBODY (07/25/2023 11:52 AM CDT) Glutamic Acid Decarboxylase Antibody 51.9(H) 0.0 - 5.0 IU/mL 07/27/2023 8:03 AM CDT [facility] ([facility]) Comment: INTERPRETIVE INFORMATION: ??Glutamic Acid Decarboxylase Antibody A value greater than 5.0 IU/mL is considered positive for Glutamic Acid Decarboxylase Antibody (PATRICIA Ab). This assay is intended for the semi-quantitative determination of the PATRICIA Ab in human serum. Results should be interpreted within the context of clinical symptoms. Performed By: [facility] [employer] [address] [place] [address] Peer Counselor: Luis Campoverde MD, PhD CLIA Number: [id number] Blood BLOOD SPECIMEN / Unknown Lab Venipuncture / Unknown 07/25/2023 11:52 AM CDT 07/25/2023 12:11 PM CDT Meghana White MD LAB - SEROLOGY ORDER ASIM Performing Organization Address [facility] de Phone Number [facility]) [address] * (ABNORMAL) LIPID PROFILE (07/25/2023 11:52 AM CDT) Cholesterol Total 250(H) <200 mg/dL 07/25/2023 12:46 PM CDT [facility] HDL 106 >40 mg/dL 07/25/2023 12:46 PM CDT [facility] Comment: ATP III Classification of HDL Cholesterol: ? <40 mg/dL: ??Considered a major risk factor. ? >60 mg/dL: ??Considered a negative risk factor. ? LDL Calculated 133(H) <100 mg/dL 07/25/2023 12:46 PM CDT [facility] Comment: ATP III Classification of LDL Cholesterol: ?<100 mg/dL: ??Optimal ? 100 - 129 mg/dL: ??Near Optimal/Above Optimal ? 130 - 159 mg/dL: ??Borderline High ? 160 - 189 mg/dL: ??High ?>190 mg/dL: ??Very High ? Triglycerides 53 <150 mg/dL 07/25/2023 12:46 PM [facility] Comment: ATP III Classification of Triglycerides: ?<150 mg/dL: ??Normal ? 150 - 199 mg/dL: ??Borderline High ? 200 - 400 mg/dL: ??High ?>500 mg/dL: ??Very High Blood BLOOD SPECIMEN / Unknown Lab Venipuncture / Unknown 07/25/2023 11:52 AM CDT 07/25/2023 12:13 PM CDT Meghana White MD LAB - CHEMISTRY ORDE SELIN [facility] [address] [place] [phone], [facility] [phone] * MICROALB/CREAT RATIO URINE RANDOM PANEL (07/25/2023 11:52 AM CDT) Albumin Random Urine <5.0 Not Established ug/mL 07/25/2023 12:44 PM [facility] Creatinine Urine 56.43 Not Established mg/dL 07/25/2023 12:44 PM [facility] Urine Albumin/Creati nine Ratio <9 <30 mg/g 07/25/2023 12:44 PM [facility] Albumin/Creati nine Ratio Urine See Comment <30 mg/g 07/25/2023 12:44 PM [facility] Comment:Unable to calculate the Urine Albumin/Creatinine Ratio due to one or more analyte concentration(s) being outside the measuring limits of the instrument. Urine URINE SPECIMEN OBTAINED BY CLEAN CATCH PROCEDURE / Unknown Collection / Unknown 07/25/2023 11:52 AM CDT 07/25/2023 12:14 PM CDT Meghana White MD LAB - URINE CHEMISTR Y ORDERABLES Performing Organization Address City/[facility]/ZIP Co de Phone Number [address] [phone], [facility] [phone] * TSH (07/25/2023 11:52 AM CDT) Pathologist [facility] TSH 0.760 0.350 - 4.940 uIU/mL 07/25/2023 1:04 PM [facility] Blood BLOOD SPECIMEN / Unknown Lab Venipuncture / Unknown 07/25/2023 11:52 AM CDT 07/25/2023 12:13 PM CDT Meghana White MD LAB - CHEMISTRY ORDE RABLES Performing Organization Address [facility]/ZIP Co de Phone Number [address] [phone], [facility] [phone] * (ABNORMAL) COMPREHENSIVE METABOLIC PANEL (07/25/2023 11:52 AM CDT) [facility] BUN 20 7 - 26 mg/dL 07/25/2023 12:46 PM [facility] Creatinine 0.48(L) 0.56 - 0.96 mg/dL 07/25/2023 12:46 PM [facility] Sodium 140 136 - 145 mmol/L 07/25/2023 12:46 PM [facility] Potassium 3.8 3.5 - 4.5 mmol/L 07/25/2023 12:46 PM [facility] Chloride 105 98 - 107 mmol/L 07/25/2023 12:46 PM [facility] CO2 27 22 - 29 mmol/L 07/25/2023 12:46 PM [facility] Glucose 106 70 - 115 mg/dL 07/25/2023 12:46 PM [facility] Calcium 9.3 8.4 - 10.2 mg/dL 07/25/2023 12:46 PM [facility] Protein Total 7.0 6.0 - 8.3 g/dL 07/25/2023 12:46 PM [facility] Albumin 3.8 3.4 - 5.0 g/dL 07/25/2023 12:46 PM [facility] Bilirubin Total 0.4 0.2 - 1.2 mg/dL 07/25/2023 12:46 PM [facility] Alkaline Phosphatase 112 40 - 150 U/L 07/25/2023 12:46 PM [facility] ALT 47 5 - 55 U/L 07/25/2023 12:46 PM [facility] AST 22 5 - 34 U/L 07/25/2023 12:46 PM [facility] Anion Gap 8 6 - 16 07/25/2023 12:46 PM [facility] BUN/Creatinine Ratio 42(H) 7 - 23 07/25/2023 12:46 PM [facility] Osmolality Calculated 293 275 - 295 mOsm/kg 07/25/2023 12:46 PM [facility] Albumin/Globulin Ratio 1.2 1.1 - 2.3 07/25/2023 12:46 PM [facility] eGFR by CKD-EPI >90 >=90 mL/min/1.7 3 m2 07/25/2023 12:46 PM [facility] Blood BLOOD SPECIMEN / Unknown Lab Venipuncture / Unknown 07/25/2023 11:52 AM CDT 07/25/2023 12:13 PM T Meghana White MD LAB - CHEMISTRY [facility] Organization Address City/State/ZIP Co de Phone Number [facility] [address] [place] [phone], [facility] [phone] * (ABNORMAL) CBC W/ DIFFERENTIAL (07/25/2023 11:52 AM CDT) WBC 6.2 4.0 - 10.7 x10E9/L 07/25/2023 12:18 PM [facility] RBC Count 3.87(L) 3.90 - 5.20 x10E12/L 07/25/2023 12:18 PM [facility] Hemoglobin 12.2 11.9 - 15.8 g/dL 07/25/2023 12:18 PM [facility] Hematocrit 37.7 34.8 - 46.1 % 07/25/2023 12:18 PM [facility] MCV 97.4 80.0 - 98.0 fL 07/25/2023 12:18 PM [facility] MCH 31.5 26.7 - 33.6 pg 07/25/2023 12:18 PM [facility] MCHC 32.4 31.7 - 36.3 g/dL 07/25/2023 12:18 PM [facility] RDW-CV 15.2(H) 11.3 - 14.8 % 07/25/2023 12:18 PM [facility] Platelet Count 326 150 - 420 x10E9/L 07/25/2023 12:18 PM [facility] MPV 9.0 7.8 - 11.4 fL 07/25/2023 12:18 PM [facility] Neutrophil % 65.2 41.0 - 74.0 % 07/25/2023 12:18 PM [facility] Lymphocyte % 22.7 17.0 - 47.0 % 07/25/2023 12:18 PM [facility] Monocyte % 9.2 3.0 - 11.0 % 07/25/2023 12:18 PM [facility] Eosinophil % 1.6 0.0 - 7.0 % 07/25/2023 12:18 PM [facility] Basophil % 0.8 0.0 - 1.6 % 07/25/2023 12:18 PM [facility] Immature Granulocytes % 0.5 0.0 - 1.0 % 07/25/2023 12:18 PM [facility] Neutrophil Absolute 4.03 1.60 - 7.50 x10E9/L 07/25/2023 12:18 PM [facility] Lymphocyte Absolute 1.40 1.00 - 4.40 x10E9/L 07/25/2023 12:18 PM [facility] Monocyte Absolute 0.57 0.15 - 1.00 x10E9/L 07/25/2023 12:18 PM CDT [facility] Eosinophil Absolute 0.10 0.00 - 0.60 x10E9/L 07/25/2023 12:18 PM CDT [facility] Basophil Absolute 0.05 0.00 - 0.13 x10E9/L 07/25/2023 12:18 PM CDT [facility] Blood BLOOD SPECIMEN / Unknown Lab Venipuncture / Unknown 07/25/2023 11:52 AM CDT 07/25/2023 12:13 PM CDT Meghana White MD LAB - HEMATOLOGY ORD ERABLES [facility] [address] [place] [phone] [phone] documented in this encounter Visit Diagnoses Diagnosis Type 1 diabetes mellitus without complication (HCC) Type I (juvenile type) diabetes mellitus without mention of complication, not stated as uncontrolled documented in this encounter Care Teams Manager Project Relationship Specialty Start Date End Date Eduardo López PA-C [address] [place] [address] PCP - General Physician Trimmer Operator 07/25/23 documented as of this encounter
--- OUTSIDE RECORDS SUMMARY | 2024-04-04 01:20 | XMS_ITS | Encounter Summary ---
Author Organization [facility] Address [address] [place] [address] Care Team Providers Care Shook Machine Operator Name Role Phone Eduardo López PA-C Primary Care Provider [phone] Reason for Visit * Reason Onset Date Comments Medication Prior Auth Request 11/01/2023 Encounter Details Date Type Department Care Team (Late st Contact Info) Description 11/01/2023 Telephone [facility] - Endocrinology [address] [place] [address], [place] [address] Meghana White MD [address] [place] [address] [place] [address] Medication Prior Auth Request Social History Tobacco Use Types Packs/Day Years [...] encounter Miscellaneous Notes * Telephone Encounter - Lisa Goel LPN - 11/01/2023 11:41 AM CDT PA was denied by insurance. Pharmacy notified. Appeal info placed in providers box. * Telephone Encounter - Lisa Goel LPN - 11/01/2023 8:14 AM CDT Insurance requires prior auth for Novolog. Prior auth request submitted on line at [employer]. Office notes submitted with request Yes. Waiting for insurance response. Cover My Meds wolf:[id number] documented in this encounter Plan of Treatment Upcoming Encounters Date Type Department Care Team (Late st Contact Info) Description 04/09/2024 8:40 AM PILOT SUBMERSIBLE Office Visit [facility] - Endocrinology [address] [facility], [place] [address] Hilario Traore MD [address] [facility] [place] [address] documented as of this encounter Visit Diagnoses Not on filedocumented in this encounter Care Teams Shook Machine Operator Relationship Specialty Start Date End Date Eduardo López, EDUARDO [address] [place] [address] PCP - General Physician Hospital Attendant 07/25/23 documented as of this encounter
--- OUTSIDE RECORDS SUMMARY | 2024-04-04 01:20 | XMS_ITS | Encounter Summary ---
Author Organization [facility] Health Address [address] [place] [address] Care Team Providers Care Veterinary Microbiologist Name Role Phone Eduardo López PA-C Primary Care Provider [phone] Encounter Details Date Type Department Care Team (Latest Contact Info) Description 11/17/2023 Travel Social History Tobacco Use Types Packs/Day Years [...] No 12/30/2013 documented as of this encounter Plan of Treatment Upcoming Encounters Date Type Department Care Team (Late st Contact Info) Description 04/09/2024 8:40 AM CONCILIATOR Office Visit [facility] - Endocrinology [address] [facility], [place] [address] Hilario Traore MD [address] [facility] [address] [place] [address] documented as of this encounter Visit Diagnoses Not on filedocumented in this encounter Care Teams Veterinary Microbiologist Relationship Specialty Start Date End Date Eduardo López PA-C [address] [place] [address] PCP - General Physician Motor Driver 07/25/23 documented as of this encounter
--- OUTSIDE RECORDS SUMMARY | 2024-04-04 01:20 | XMS_ITS | Encounter Summary ---
Author Organization [facility] Address [address] [facility] [place] [address] Care Team Providers Care Tourist Information Officer Name Role Phone Marcella Jones MD Primary Care Provider [phone] Encounter Details Date Type Department Care Team (Latest Contact Info) Description 07/24/2023 Travel Social History Tobacco Use Types Packs/Day [...] Upcoming Encounters Date Type Department Care Team ( st Contact Info) Description 04/09/2024 8:40 AM SEROLOGY TEACHER Office Visit [facility] - Endocrinology [facility] [facility], [place] [address] Hilario Traore MD [address] [facility] [place] [address] documented as of this encounter Visit Diagnoses Not on filedocumented in this encounter Care Teams Tourist Information Officer Relationship Specialty Start Date End Date Marcella Jones MD [address] [place] [address] [address] [place] [address] PCP - General Pediatrics 03/29/19 07/24/23 documented as of this encounter
--- OUTSIDE RECORDS SUMMARY | 2024-04-04 01:20 | XMS_ITS | Encounter Summary ---
Author Organization [facility] Address [address] [place] [address] Care Team Providers Care Extender Name Role Phone Marcella Jones MD Primary Care Provider Reason for Visit * Reason Comments Evaluation Encounter Details Date Type Department Care Team (Late st Contact Info) Description 04/04/2019 12:42 PM NETWORK OPERATIONS PROJECT MANAGER - 04/04/2019 1:[address] [facility] Hospital Encounter [facility] Pediatrics - Orthopedics [address] [place] [address] Mark Cardona MD [address] [address] Discharge Disposition: Home or Self Care Social [...] on file documented as of this encounter Last Filed Vital Signs Vital Sign Reading Time Taken Comments Blood Pressure - - Pulse - - Temperature - - Respiratory Rate - - Oxygen Saturation - - Inhaled Oxygen Concentration - - Weight 57.3 kg (126 lb 5.2 oz) 04/04/2019 1:03 P M NETWORK OPERATIONS PROJECT MANAGER Height 162.9 cm (5' 4.13 ) 04/04/2019 1:03 PM CS T Body Mass Index 21.59 04/04/2019 1:03 PM NETWORK OPERATIONS PROJECT MANAGER Body Mass Index Percentile 65.67% 04/04/2019 1:0 3 PM NETWORK OPERATIONS PROJECT MANAGER Growth Chart: [facility] (Girls, 2- 20 Years) documented in this encounter Functional Status Functional Status Response [...] No 12/30/2013 documented as of this encounter Discharge Instructions * Patient Instructions* Luis Moctezuma MD - 04/04/2019 2:10 PM NETWORK OPERATIONS PROJECT MANAGER Images from the original note were not included. Orthopaedic Sports Medicine and Shoulder Surgery Thank you for coming in to see us today for your Right patellofemoral pain, hamstring tendonitis, IT band pain. We discussed the following treatment plan today: Prescription given for PT. Follow up as needed Please do not hesitate to contact our clinical nurse specialist, Gabriela Lentz, if you have any questions or concerns. She can be reached at [phone] or by email at [email or web address] You may also visit our web-site at [email or web address] for other information. Sincerely, Mark Cardona MD [facility] Team physician of the [facility] Orthopaedic office contact information: [facility] [address] [place] [id number] [facility] [address] [facility], [address] [address] [facility] [address] [place] [address]. [address] [facility] [address] [place] [address], [place] [address] Please fill out the [employer] survey that will be sent to you. ORK OPERATIONS PROJECT MANAGER documented in this encounter Medications at Time of Discharge Medication Sig Dispensed Refills Start Date End Date acetaminophen (TYLENOL) 500 MG tablet Take 500 mg by mouth every 4 hours as needed for Pain. Maximum allowable Acetaminophen amount = 4 Grams (4000 mg) / 24 hours. ibuprofen (MOTRIN) 200 MG tablet Take 200 mg by mouth every 6 hours as needed for Pain. SPRINTEC 28 0.25-35 MG-MCG tablet Take 1 tablet by mouth once daily 02/20/2019 documented as of this encounter Progress Notes * Luis Moctezuma MD - 04/04/2019 1:56 PM CST Mark Cardona MD ORTHOPAEDIC SPORTS MEDICINE [address] [place] [id number] P: [phone] F: [phone] Marcella Nova MD, Today we had the pleasure of seeing Himanshu Damon in the [facility] for evaluation of her right knee. Himanshu Damon is a 13 year old female who presents with a 3 months history of Right knee pain and feelings of instability. Patient participates in [employer] and was hit by a flag twice in one practice. States her knee did not swell up tremendously. She has still been able to walk but running is painful. Also has pain with stairs and prolonged sitting. She has been able to participate in competitioins. She endorses feelings of instability and has had a few falls. States that it has been getting worse, not better in t he past few months. She has tried bracing, NSAID's . The symptoms are activity-related and improved with rest. No fevers, chills, numbness, paresthesiasor gross motor weakness. The patient's activity goals include painless return to sport SANE Score (0-100): No flowsheet data found. Current Outpatient Medications on File Prior to Encounter Medication Sig Dispense Refill ??? acetaminophen (TYLENOL) 500 MG tablet Take 500 mg by mouth every 4 hours as needed for Pain. Maximum allowable Acetaminophen amount = 4 Grams (4000 mg) / 24 hours. ??? ibuprofen (MOTRIN) 200 MG tablet Take 200 mg by mouth every 6 hours as needed for Pain. ??? SPRINTEC 28 0.25-35 MG-MCG tablet Take 1 tablet by mouth once daily No current facility-administered medications on file prior to encounter. Allergies as of 04/04/2019 ??? (No Known Allergies) Past Medical History: Diagnosis Date ??? Brown recluse spider bite 12/15/13 R leg, hospitalized 12/20- ??? Medical history reviewed with no changes previously healthy with no previous hospitalizations Past Surgical History: Procedure Laterality Date ??? NEGATIVE SURGICAL HISTORY ??? Tympanostomy Bilateral 15 Point review of systems was otherwise negative as reviewed today. Social History Tobacco Use ??? Smoking status: Passive Smoke Exposure - Never Smoker ??? Smokeless tobacco: Never Used Substance and Sexual Activity ??? Alcohol use: No ??? Drug use: No ??? Sexual activity: Not on file No family history on file. Ht 5' 4.13 (162.9 cm) Wt 126 lb 5.2 oz (47977 g) BMI 21.59 kg/m2 Physical exam of the Right knee: -The patient is awake, alert, oriented and they are pleasant to speak with. There is no midline spine tenderness. No step-off or deformity is palpated. Negative straight leg raise bilaterally. There is no hip or knee pain with hip range of motion bilaterally. Examination of the contralateral extremity was normal today, and used for comparison. -Gait is antalgic. Knee range of motion is: Right knee:0 Inspection shows: Effusion None Visible deformities or skin lesions No open wounds, bruising, or gross visible deformities Palpation shows: Patella Appropriately mobile with no pain Patellar apprehension Negative Patellar tracking Normal Patellar tendon Normal Medial joint line painful Lateral joint line Normal Pes anserinus insertion Normal Distal IT band and Gerdy's tubercle Normal Other areas of pain Pain with palpation of undersurface of medial patella Testing for Ligamentous Laxity shows: Ajay test Normal Anterior Drawer Normal Posterior Drawer Normal Varus stress test at 30 deg (LCL) Normal Valgus stress test at 30 deg (MCL) Normal Prone dial testing Normal Testing for Meniscal Pathology shows: Lateral joint line tenderness Normal Medial joint line tenderness + Tres Normal -The extremity is neurologically intact to the deep/superficial peroneal, saphenous, sural, and posterior tibial nerves. There are good pulses distally, the foot is warm, and there is brisk capillaryrefill. Imaging XR of the Right knee were performed today. My interpretation is: No fractures Impression 13 year old female with right patellofemoral syndrome, hamstring tendonitis, IT band syndrom Plan We reviewed the diagnosis and treatment options today. At this time, we recommended conservative treatments and counseled them regarding physical therapy exercises. A prescription for PT was given today. Himanshu Damon may contact us at anytime for repeat assessment, and currently follow-up will be as needed. Please do not hesitate to contact our clinical nurse specialist, Gabriela Lentz, if you have any questions or concerns. She can be reached at [phone] or by email at [email or web address] You may also visit our web-site at [email or web address] for other information. Sincerely, Luis Moctezuma MD ORK OPERATIONS PROJECT MANAGER Associated attestation - Mark Cardona MD - 04/04/2019 5:19 PM NETWORK OPERATIONS PROJECT MANAGER Attending Note: I agree with Dr. Moctezuma (resident), and verify my resident's documentation/findings including history, physical exam and/or medical decision making. I have personally performed a history,physical exam, and medical decision making for this patient. Himanshu Damon is a 13 year old female presenting with signs and symptoms consistent with patellofemoral syndrome, IT band syndrome, and hamstring tendinitis. We discussed the diagnosis indetail, including treatments and expected outcomes. At this time, we recommended conservative treatments, including activity modifications, ice, occasional anti-inflammatory medications, and a dedicated physical therapy program specific to the diagnosis. Follow will be PRN, but they know to contact me should Himanshu continue to have symptoms after a full course of physical therapy. Mark Cardona MD [facility] * Sarina Carvalho RN - 04/04/2019 1:04 PM CST Was hit in the knee during color guard. Now a dull achy pain when walking or partaking in any activity. ORK OPERATIONS PROJECT MANAGER documented in this encounter Plan of Treatment Upcoming Encounters Date Type Department Care Team (Late st Contact Info) Description 04/09/2024 8:40 AM NETWORK OPERATIONS PROJECT MANAGER Office Visit [facility] - Endocrinology [facility] [facility], [place] [address] Hilario Traore MD [address] [place] [address] documented as of this encounter Procedures Procedure Name Priority Date/Time Associated Diagnosis Comments XR KNEE RIGHT 4VW OR MORE Routine 04/04/2019 1:15 PM NETWORK OPERATIONS PROJECT MANAGER Right knee pain, unspecified chronicity documented in this encounter Results * XR KNEE RIGHT 4VW OR MORE (04/04/2019 1:15 PM NETWORK OPERATIONS PROJECT MANAGER) Anatomical Region Laterality Modality Lower Extremity Radiographic Zhane ging 04/04/2019 1:15 PM NETWORK OPERATIONS PROJECT MANAGER Impressions 04/04/2019 1:16 PM NETWORK OPERATIONS PROJECT MANAGER Normal views of the right knee Reading Radiologist: Cameron Lino MD on 04/04/2019 at 1:16 PM Narrative 04/04/2019 1:16 PM NETWORK OPERATIONS PROJECT MANAGER INDICATION: Right knee pain COMPARISON: None available. TECHNIQUE: Frontal, lateral, notch and sunrise radiographs of the right knee. FINDINGS: The patient is skeletally mature. No distal femoral osteochondral changes. No dislocation. No aggressive intrinsic lesion. No effusion. No acute fracture. No healing fracture. No radiopaque foreign body. Procedure Note Cameron Lino MD - 04/04/2019 INDICATION: Right knee pain COMPARISON: None available. TECHNIQUE: Frontal, lateral, notch and sunrise radiographs of the right knee. FINDINGS: The patient is skeletally mature. No distal femoral osteochondral changes. No dislocation. No aggressive intrinsic lesion. No effusion. No acute fracture. No healing fracture. No radiopaque foreign body. IMPRESSION Normal views of the right knee Reading Radiologist: Cameron Lino MD on 04/04/2019 at 1:16 PM Mark Cardona MD DIAGNOSTIC IMAGING O [facility]DERABLES documented in this encounter Visit Diagnoses Diagnosis Right knee pain, unspecified chronicity Right knee pain, unspecified chronicity documented in this encounter Care Teams Extender Relationship Specialty Start Date End Date Marcella Jones MD [address] [place] [id number] PCP - General Pediatrics 03/29/19 07/24/23 documented as of this encounter
--- OUTSIDE RECORDS SUMMARY | 2024-04-04 01:20 | XMS_ITS | Encounter Summary ---
Author Organization [facility] Address [address] [place] [address] Care Team Providers Care Vegetable Buncher Name Role Phone Eduardo López PA-C Primary Care Provider [phone] Encounter Details Date Type Department Care Team (Late st Contact Info) Description 11/23/2023 Orders Only [facility] - Endocrinology [address] [place] [address], [place] [address] Meghana White MD [address] [place] [address] [place] [address] Type 1 diabetes mellitus without complication (HCC) Social History Tobacco Use Types Packs/Day Years [...] st Contact Info) Description 04/09/2024 8:40 AM QUILL BUNCHER AND SORTER Office Visit [facility] - Endocrinology [address] [facility] [place] [address] Hilario Traore MD [address] [place] [address] documented as of this encounter Visit Diagnoses Diagnosis Type 1 diabetes mellitus without complication (HCC)- Primary Type I (juvenile type) diabetes mellitus without mention of complication, not stated as uncontrolled documented in this encounter Care Teams Vegetable Buncher Relationship Specialty Start Date End Date Eduardo López, PABennieC [address] [place] [address] PCP - General Physician Manual Lathe Operator 07/25/23 documented as of this encounter
--- OUTSIDE RECORDS SUMMARY | 2024-04-04 01:20 | XMS_ITS | Patient Health Summary ---
Author Organization [facility] Address [address] [place] [address] Care Team Providers Care Product Promoter Retail Pet Name Role Phone Eduardo López PA-C Primary Care Provider [phone] Note from [facility],non-owned Affiliates and Associated Physician Practices is amultiple site organization consisting of ambulatory clinics and hospital sitesin [place], [place], [place] and [place]. This disclosure is being madepursuant to the Care Everywhere program and may not contain all information available regarding this patient. Last updated 17.[facility] Allergies * Cyclobenzaprine(Nausea and/or Vomiting) * Kiwi Extract(Swelling) -High Criticality * Lolita Flavor(Swelling) -High Criticality * Pineapple(Swelling,Unknown) Medications * Be aware that medications may not be up to date on this document. Alwaysverify current medications with the patient. * ibuprofen (MOTRIN) 200 MG tablet Take 200 mg by mouth every 6 hours as needed for Pain. * acetaminophen (TYLENOL) 500 MG tablet Take 500 mg by mouth every 4 hours as needed for Pain. Maximum allowable Acetaminophen amount = 4 Grams (4000 mg) / 24 hours. * SPRINTEC 28 0.25-35 MG-MCG tablet(Started 02/20/2019) Take 1 tablet by mouth once daily * OneTouch Verio test strip(Started 07/18/2023) 1 STRIP NEEDED USE INSTRUCTED * blood glucose test strip(Started 07/18/2023) Use 1 (one) strip as instructed as needed * Continuous Glucose Sensor (FreeStyle Louis 3 Sensor) [facility](Started 07/21/2023) APPLY TO THE BACK OF THE ARM EVERY 14 DAYS * Lantus SoloStar pen(Started 07/25/2023) Inject 35 (thirty five) Units subcutaneously every 24 hours 11 refills by 07/24/2024 * Glucagon (Baqsimi Two Pack) 3 MG/DOSE POWD(Started 07/25/2023) [place] 3 mg into the nose as directed 2 refills by 07/24/2024 * Acetone, Urine, Test (Ketone Test) STRP(Started 07/25/2023) 1 Each by In Vitro route as needed 11 refills by 07/24/2024 * Continuous Glucose Transmitter (Dexcom G6 Transmitter) [facility](Started 08/15/2023) Use 1 Each Every 90 days 3 refills by 08/14/2024 * Continuous Glucose Sensor (Dexcom G6 Sensor) [facility](Started 08/15/2023) Use 1 Each every 10 days 11 refills by 08/14/2024 * insulin lispro (HumaLOG KwikPen) 100 UNIT/ML pen(Started 11/02/2023) Inject 8 (eight) Units to 13 (thirteen) Units subcutaneously 3 times daily before meals 8 units with 50-60 gm carb of meals, and add 3 units if glucose over 200, add 5 units if over 300, daily max 50units 11 refills by 11/01/2024 * etonogestrel (Nexplanon) 68 MG implant(Started 09/06/2023) Inject 1 implant by subcutaneous route. 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 12/21/2013 Resolved Problems Problem Noted Date Diagnosed Date Resolved Date Plantar wart 07/19/2010 12/21/2013 PAINFUL BUMP L GREAT TOE 07/19/2010 Immunizations * DTaP VACCINE IM (6wk-6yrs)(Given 04/26/2005, 03/05/2004, 2003, 2003) * HEP A PED/ADULT VACCINE(Given 11/03/2008, 12/25/2006) * HEP B VACCINE, PED/ADOL(Given 03/05/2004, 2003, 2003) * HIB VACCINE(Given 04/26/2005, 03/05/2004, 2003, 2003) * Human Papilloma Virus Ninevalent Vaccine(Given 09/22/2017, 03/21/2017) * INFLUENZA VACCINE(Given 03/21/2017) * MENINGOCOCCAL B RECOMBINANT, 2 OR 3 DOSE, IM(Given 2019) * MENINGOCOCCAL CONJUGATE (MCV4P)(Given 2019, 11/07/2014) * MMR(Given 11/05/2008, 11/03/2008, 04/26/2005, 09/23/2004) * PNEUMOCOCCAL PCV7 CONJ, PEDS(Given 09/23/2004, 03/05/2004, 2003, 2003) * POLIO IPV(Given 03/05/2004, 2003, 2003) * TDAP (7yrs+)(Given 11/07/2014) * VARICELLA(Given 03/06/2008, 09/23/2004) Social History Tobacco Use Types Packs/Day Years [...] Mass Index 22.83 07/25/2023 8:28 AM CDT Procedures * HEMOGLOBIN A1C - POINT OF CARE (AMB) [facility](Performed 11/17/2023) Performed for Type 1 diabetes mellitus without complication (HCC) * C-PEPTIDE(Performed 07/25/2023) Performed for Type 1 diabetes mellitus without complication (HCC) * GLUTAMIC ACID DECARBOXYLASE (PATRICIA) ANTIBODY(Performed 07/25/2023) Performed for Type 1 diabetes mellitus without complication (HCC) * LIPID PROFILE(Performed 07/25/2023) Performed for Type 1 diabetes mellitus without complication (HCC) * MICROALB/CREAT RATIO URINE RANDOM PANEL(Performed 07/25/2023) Performed for Type 1 diabetes mellitus without complication (HCC) * TSH(Performed 07/25/2023) Performed for Type 1 diabetes mellitus without complication (HCC) * COMPREHENSIVE METABOLIC PANEL(Performed 07/25/2023) Performed for Type 1 diabetes mellitus without complication (HCC) * CBC W AUTO DIFFERENTIAL(Performed 07/25/2023) Performed for Type 1 diabetes mellitus without complication (HCC) * GLUCOSE - POINT OF CARE (AMB) [facility](Performed 07/25/2023) Performed for Type 1 diabetes mellitus without complication (HCC) * HEMOGLOBIN A1C - POINT OF CARE (AMB) [facility](Performed 07/25/2023) Performed for Type 1 diabetes mellitus without complication (HCC) * XR KNEE RIGHT 4VW OR MORE(Performed 04/04/2019) Performed for Right knee pain, unspecified chronicity * HGB HCT PANEL(Performed 12/30/2013) * HGB HCT PANEL(Performed 12/29/2013) * HGB HCT PANEL(Performed 12/28/2013) * US ABDOMEN COMPLETE(Performed 12/28/2013) Performed for Acute hemolysis * BASIC METABOLIC PANEL (CALCIUM TOTAL)(Performed 12/28/2013) * HGB HCT PANEL(Performed 12/28/2013) * HGB HCT PANEL(Performed 12/27/2013) * BASIC METABOLIC PANEL (CALCIUM TOTAL)(Performed 12/27/2013) * HGB HCT PANEL(Performed 12/27/2013) * HGB HCT PANEL(Performed 12/26/2013) * BASIC METABOLIC PANEL (CALCIUM TOTAL)(Performed 12/26/2013) * HGB HCT PANEL(Performed 12/26/2013) * BLOOD TYPE VERIFICATION(Performed 12/25/2013) * CROSSMATCH RBC LEUKOREDUCED(Performed 12/25/2013) * RETIC COUNT(Performed 12/25/2013) * LDH BLOOD(Performed 12/25/2013) * CK BLOOD(Performed 12/25/2013) * BASIC METABOLIC PANEL (CALCIUM TOTAL)(Performed 12/25/2013) * HGB HCT PANEL(Performed 12/25/2013) * HGB HCT PANEL(Performed 12/25/2013) * TYPE + SCREEN PANEL(Performed 12/24/2013) * URINE MICROSCOPIC ONLY(Performed 12/24/2013) * URINALYSIS REFLEX TO MICROSCOPIC NO CULTURE(Performed 12/24/2013) * BILIRUBIN DIRECT(Performed 12/24/2013) * COMPREHENSIVE METABOLIC PANEL(Performed 12/24/2013) * CBC W AUTO DIFFERENTIAL(Performed 12/24/2013) * CBC W AUTO DIFFERENTIAL(Performed 12/22/2013) * CBC W AUTO DIFFERENTIAL(Performed 12/21/2013) * URINE MICROSCOPIC ONLY(Performed 12/21/2013) * URINALYSIS REFLEX TO MICROSCOPIC NO CULTURE(Performed 12/21/2013) * DIFFERENTIAL MANUAL(Performed 12/21/2013) * CBC W MANUAL DIFFERENTIAL(Performed 12/21/2013) * CK BLOOD(Performed 12/21/2013) * COMPREHENSIVE METABOLIC PANEL(Performed 12/21/2013) * CBC W AUTO DIFFERENTIAL(Performed 12/21/2013) * URINE MICROSCOPIC ONLY(Performed 12/21/2013) * URINALYSIS REFLEX TO MICROSCOPIC NO CULTURE(Performed 12/21/2013) * CULTURE STREP GROUP A(Performed 12/19/2013) Results * HEMOGLOBIN A1C - POINT OF CARE (AMB) [facility] (11/17/2023 8:56 AM CDT) Only the most recent of2 resultswithin the time period is included. Hemoglobin A1c POCT 6.9 % [facility] [address] [place] [address] BLOOD SPECIMEN / Unknown 11/17/2023 8:56 AM CDT Meghana White MD LAB - POINT OF CARE ORDERABLES Performing Organization Address [facility]/ZIP Co de Phone Number [facility] Anna [facility] [address] [facility] [address] [place] [address], [facility] [phone] * MICROALB/CREAT RATIO URINE RANDOM PANEL (07/25/2023 11:52 AM CDT) Albumin Random Urine <5.0 Not Established ug/mL 07/25/2023 12:44 PM CDT [facility] Creatinine Urine 56.43 Not Established mg/dL 07/25/2023 12:44 PM CDT [facility] Urine Albumin/Creati nine Ratio <9 <30 mg/g 07/25/2023 12:44 PM CDT [facility] Albumin/Creati nine Ratio Urine See Comment <30 mg/g 07/25/2023 12:44 PM CDT [facility] Comment:Unable to calculate the Urine Albumin/Creatinine Ratio due to one or more analyte concentration(s) being outside the measuring limits of the instrument. Urine URINE SPECIMEN OBTAINED BY CLEAN CATCH PROCEDURE / Unknown Collection / Unknown 07/25/2023 11:52 AM CDT 07/25/2023 12:14 PM CDT Meghana White MD LAB - URINE CHEMISTR Y ORDERABLES Performing Organization Address City/[facility]/ZIP Co de Phone Number [facility] [address] [place] [address], [facility] [phone] * C-PEPTIDE (07/25/2023 11:52 AM CDT) C-Peptide 0.7 0.5 - 3.3 ng/mL 07/26/2023 9:33 PM CDT [employer] ([facility]) Comment: INTERPRETIVE INFORMATION: Serum, C-Peptide Reference Interval applies to fasting specimens. To convert to nmol/L, multiply by 0.33 Performed By: [employer] [address] [place] [id number] Farm Equipment Mechanic Apprentice: Luis Campoverde MD, PhD CLIA Number: [id number] Blood BLOOD SPECIMEN / Unknown Lab Venipuncture / Unknown 07/25/2023 11:52 AM CDT 07/25/2023 12:11 PM CDT Meghana White MD LAB - CHEMISTRY ORDE RABLES Performing Organization Address [facility] Co de Phone Number [facility] [employer] (powering [employer]) [facility]) [address] [place] [address] * (ABNORMAL) GLUTAMIC ACID DECARBOXYLASE (PATRICIA) ANTIBODY (07/25/2023 11:52 AM CDT) Pathologist [facility] Glutamic Acid Decarboxylase Antibody 51.9(H) 0.0 - 5.0 IU/mL 07/27/2023 8:03 AM CDT [facility] ([facility]) Comment: INTERPRETIVE INFORMATION: ??Glutamic Acid Decarboxylase Antibody A value greater than 5.0 IU/mL is considered positive for Glutamic Acid Decarboxylase Antibody (PATRICIA Ab). This assay is intended for the semi-quantitative determination of the PATRICIA Ab in human serum. Results should be interpreted within the context of clinical symptoms. Performed By: [place] [address] Farm Equipment Mechanic Apprentice: Luis Campoverde MD, PhD CLIA Number: [id number] Blood BLOOD SPECIMEN / Unknown Lab Venipuncture / Unknown 07/25/2023 11:52 AM CDT 07/25/2023 12:11 PM CDT Meghana White MD LAB - SEROLOGY ORDER ASIM Performing Organization Address [facility]/ZIP Co de Phone Number [facility]) [address] [place] [address] * (ABNORMAL) CBC W/ DIFFERENTIAL (07/25/2023 11:52 AM CDT) Only the most recent of5 resultswithin the time period is included. Pathologist [facility] WBC 6.2 4.0 - 10.7 x10E9/L 07/25/2023 12:18 PM CDT [facility] RBC Count 3.87(L) 3.90 - 5.20 x10E12/L 07/25/2023 12:18 PM [facility] Hemoglobin 12.2 11.9 - 15.8 g/dL 07/25/2023 12:18 PM [facility] Hematocrit 37.7 34.8 - 46.1 % 07/25/2023 12:18 PM [facility] MCV 97.4 80.0 - 98.0 fL 07/25/2023 12:18 PM [facility] MCH 31.5 26.7 - 33.6 pg 07/25/2023 12:18 PM [facility] MCHC 32.4 31.7 - 36.3 g/dL 07/25/2023 12:18 PM [facility] RDW-CV 15.2(H) 11.3 - 14.8 % 07/25/2023 12:18 PM [facility] Platelet Count 326 150 - 420 x10E9/L 07/25/2023 12:18 PM [facility] MPV 9.0 7.8 - 11.4 fL 07/25/2023 12:18 PM [facility] Neutrophil % 65.2 41.0 - 74.0 % 07/25/2023 12:18 PM [facility] Lymphocyte % 22.7 17.0 - 47.0 % 07/25/2023 12:18 PM [facility] Monocyte % 9.2 3.0 - 11.0 % 07/25/2023 12:18 PM [facility] Eosinophil % 1.6 0.0 - 7.0 % 07/25/2023 12:18 PM [facility] Basophil % 0.8 0.0 - 1.6 % 07/25/2023 12:18 PM [facility] Immature Granulocytes % 0.5 0.0 - 1.0 % 07/25/2023 12:18 PM [facility] Neutrophil Absolute 4.03 1.60 - 7.50 x10E9/L 07/25/2023 12:18 PM [facility] Lymphocyte Absolute 1.40 1.00 - 4.40 x10E9/L 07/25/2023 12:18 PM [facility] Monocyte Absolute 0.57 0.15 - 1.00 x10E9/L 07/25/2023 12:18 PM T [facility] Eosinophil Absolute 0.10 0.00 - 0.60 x10E9/L 07/25/2023 12:18 PM [facility] Basophil Absolute 0.05 0.00 - 0.13 x10E9/L 07/25/2023 12:18 PM [facility] Blood BLOOD SPECIMEN / Unknown Lab Venipuncture / Unknown 07/25/2023 11:52 AM CDT 07/25/2023 12:13 PM CDT Meghana White MD LAB - HEMATOLOGY ORD ERABLES [facility] [address] [place] [address], [facility] [phone] * (ABNORMAL) COMPREHENSIVE METABOLIC PANEL (07/25/2023 11:52 AM CDT) Only the most recent of3 resultswithin the time period is included. BUN 20 7 - 26 mg/dL 07/25/2023 12:46 PM [facility] Creatinine 0.48(L) 0.56 - 0.96 mg/dL 07/25/2023 12:46 PM [facility] Sodium 140 136 - 145 mmol/L 07/25/2023 12:46 PM [facility] Potassium 3.8 3.5 - 4.5 mmol/L 07/25/2023 12:46 PM [facility] Chloride 105 98 - 107 mmol/L 07/25/2023 12:46 PM [facility] CO2 27 22 - 29 mmol/L 07/25/2023 12:46 PM [facility] Glucose 106 70 - 115 mg/dL 07/25/2023 12:46 PM [facility] Calcium 9.3 8.4 - 10.2 mg/dL 07/25/2023 12:46 PM [facility] Protein Total 7.0 6.0 - 8.3 g/dL 07/25/2023 12:46 PM [facility] Albumin 3.8 3.4 - 5.0 g/dL 07/25/2023 12:46 PM [facility] Bilirubin Total 0.4 0.2 - 1.2 mg/dL 07/25/2023 12:46 PM [facility] Alkaline Phosphatase 112 40 - 150 U/L 07/25/2023 12:46 PM [facility] ALT 47 5 - 55 U/L 07/25/2023 12:46 PM [facility] AST 22 5 - 34 U/L 07/25/2023 12:46 PM [facility] Anion Gap 8 6 - 16 07/25/2023 12:46 PM [facility] BUN/Creatinine Ratio 42(H) 7 - 23 07/25/2023 12:46 PM [facility] Osmolality Calculated 293 275 - 295 mOsm/kg 07/25/2023 12:46 PM [facility] Albumin/Globulin Ratio 1.2 1.1 - 2.3 07/25/2023 12:46 PM [facility] eGFR by CKD-EPI >90 >=90 mL/min/1.7 3 m2 07/25/2023 12:46 PM [facility] Blood BLOOD SPECIMEN / Unknown Lab Venipuncture / Unknown 07/25/2023 11:52 AM CDT 07/25/2023 12:13 PM CDT Meghana White MD LAB - CHEMISTRY ORDE SELIN [facility] Organization Address City/State/[facility] Co de Phone Number [facility] [address] [place] [phone] [phone] * TSH (07/25/2023 11:52 AM CDT) TSH 0.760 0.350 - 4.940 uIU/mL 07/25/2023 1:04 PM [facility] Blood BLOOD SPECIMEN / Unknown Lab Venipuncture / Unknown 07/25/2023 11:52 AM CDT 07/25/2023 12:13 PM CDT Meghana White MD LAB - CHEMISTRY ORDE RABLES Performing Organization Address [facility]/ZIP Co de Phone Number [facility] [address] [place] [address], [facility] [phone] * (ABNORMAL) LIPID PROFILE (07/25/2023 11:52 AM CDT) Cholesterol Total 250(H) <200 mg/dL 07/25/2023 12:46 PM CDT [facility] HDL 106 >40 mg/dL 07/25/2023 12:46 PM CDT [facility] Comment: ATP III Classification of HDL Cholesterol: ? <40 mg/dL: ??Considered a major risk factor. ? >60 mg/dL: ??Considered a negative risk factor. ? LDL Calculated 133(H) <100 mg/dL 07/25/2023 12:46 PM CDT [facility] Comment: ATP III Classification of LDL Cholesterol: ?<100 mg/dL: ??Optimal ? 100 - 129 mg/dL: ??Near Optimal/Above Optimal ? 130 - 159 mg/dL: ??Borderline High ? 160 - 189 mg/dL: ??High ?>190 mg/dL: ??Very High ? Triglycerides 53 <150 mg/dL 07/25/2023 12:46 PM CDT [facility] Comment: ATP III Classification of Triglycerides: ?<150 mg/dL: ??Normal ? 150 - 199 mg/dL: ??Borderline High ? 200 - 400 mg/dL: ??High ?>500 mg/dL: ??Very High Blood BLOOD SPECIMEN / Unknown Lab Venipuncture / Unknown 07/25/2023 11:52 AM CDT 07/25/2023 12:13 PM CDT Meghana White MD LAB - CHEMISTRY SAMRA [facility] [address] [place] [address], [facility] [phone] * GLUCOSE - POINT OF CARE (AMB) [facility] (07/25/2023 9:53 AM CDT) Glucose WB/POC 91 70 - 115 mg/dL [facility] [address] [place] [address] Blood BLOOD SPECIMEN / Unknown 07/25/2023 9:53 AM CDT Meghana White MD LAB - POINT OF CARE ORDERABLES Performing Organization Address [facility] Co de Phone Number [facility] [address] [place] [address] [address] [facility] [place] [address], [facility] [phone] * XR KNEE RIGHT 4VW OR MORE (04/04/2019 1:15 PM WELL TESTING OPERATOR) Anatomical Region Laterality Modality Lower Extremity Radiographic Zhane ging 04/04/2019 1:15 PM WELL TESTING OPERATOR Impressions 04/04/2019 1:16 PM WELL TESTING OPERATOR Normal views of the right knee Reading Radiologist: Cameron Lino MD on 04/04/2019 at 1:16 PM Narrative 04/04/2019 1:16 PM WELL TESTING OPERATOR INDICATION: Right knee pain COMPARISON: None available. TECHNIQUE: Frontal, lateral, notch and sunrise radiographs of the right knee. FINDINGS: The patient is skeletally mature. No distal femoral osteochondral changes. No dislocation. No aggressive intrinsic lesion. No effusion. No acute fracture. No healing fracture. No radiopaque foreign body. Procedure Note Cameorn Lino MD - 04/04/2019 INDICATION: Right knee [...] Mark Cardona MD DIAGNOSTIC IMAGING O RDERABLES * (ABNORMAL) HGB HCT PANEL (12/30/2013 6:01 AM CDT) Only the most recent of10 resultswithin the time period is included. Hemoglobin 8.4(L) 11.5 - 15.5 gm/dL 12/30/2013 6:43 AM CDT [facility] Hematocrit 25.9(L) 35.0 - 45.0 % 12/30/2013 6:43 AM CDT [facility] Blood BLOOD SPECIMEN / Unknown Lab Venipuncture / Unknown 12/30/2013 6:01 AM CDT 12/30/2013 6:14 AM CDT Cynthia Mahajan MD LAB - NA TOLOGY ORDERABLES Performing Organization Address City/State/[facility] Co de Phone Number [facility] [address] [place] [address] * US ABDOMEN COMPLETE (12/28/2013 9:28 AM CDT) Anatomical Region Laterality Modality Abdomen Ultrasound 12/28/2013 9:30 AM CDT Impressions 12/28/2013 9:34 AM CDT Scattered lymph nodes in a small amount of free fluid in the right lower quadrant. No sonographic evidence of appendicitis. Narrative 12/28/2013 9:34 AM CDT Abdominal sonogram History: Abdominal pain, hemoglobinuria secondary to brown recluse spider bite The hepatobiliary system, spleen, kidneys, pancreas, and visible retroperitoneal great vessels are normal. Sonography was performed in the right lower quadrant using graded compression. There is no noncompressible tubular structure to suggest appendicitis. Scattered lymph nodes are identified with a small amount of free fluid. Procedure Note Pia Yates MD - 12/28/2013 Abdominal sonogram History: Abdominal pain, hemoglobinuria secondary to brown recluse spider bite The hepatobiliary system, spleen, kidneys, pancreas, and visible retroperitoneal great vessels are normal. Sonography was performed in the right lower quadrant using graded compression. There is no noncompressible tubular structure to suggest appendicitis. Scattered lymph nodes are identified with a small amount of free fluid. IMPRESSION Scattered lymph nodes in a small amount of free fluid in the right lower quadrant. No sonographic evidence of appendicitis. Ignacio Moon MD US ORDERABLES * (ABNORMAL) BASIC METABOLIC PANEL (CALCIUM TOTAL) (12/28/2013 5:03 AM CDT) Only the most recent of4 resultswithin the time period is included. Glucose 110(H) 70 - 105 mg/dL 12/28/2013 6:01 AM [facility] Sodium 142 136 - 145 mmol/L 12/28/2013 6:01 AM [facility] Potassium 4.1 3.5 - 5.1 mmol/L 12/28/2013 6:01 AM [facility] Chloride 110(H) 98 - 107 mmol/L 12/28/2013 6:01 AM [facility] CO2 23 20 - 28 mmol/L 12/28/2013 6:01 AM [facility] Calcium 9.03(L) 9.12 - 10.48 mg/dL 12/28/2013 6:01 AM [facility] Anion Gap 9 5 - 20 mmol/L 12/28/2013 6:01 AM [facility] BUN 6.8 6.7 - 19.6 mg/dL 12/28/2013 6:01 AM [facility] Creatinine 0.49(L) 0.53 - 0.80 mg/dL 12/28/2013 6:01 AM [facility] eGFR by MDRD mL/min/1. 73m2 12/28/2013 6:01 AM [facility] Comment:eGFR calculations ar e not performed for children under 18 years old. eGFR by MDRD mL/min/1. 73m2 12/28/2013 6:01 AM [facility] Comment:eGFR calculations ar e not performed for children under 18 years old. Blood BLOOD SPECIMEN / Unknown Lab Venipuncture / Unknown 12/28/2013 5:03 AM CDT 12/28/2013 5:18 AM CDT Ignacio Moon MD LAB - CHEMISTRY SAMRA SMALLWOOD [facility] Organization Address City/State/ZIP Co de Phone Number [facility] [address] [facility] [place] [address] * BLOOD TYPE VERIFICATION (12/25/2013 5:43 PM CDT) ABO AB 12/25/2013 6:55 PM CDT [facility] Rh Type Positive 12/25/2013 6:55 PM CDT [facility] Miscellaneous samples (specimen) BLOOD SPECIMEN / Unknown 12/25/2013 5:43 PM CDT 12/25/2013 6:50 PM CDT Ignacio Moon MD LAB - BLOOD BANK ORD ERABLES Performing Organization Address [facility] Co de Phone Number [facility] [address] [place] [address] * CROSSMATCH RBC (12/25/2013 5:43 PM CDT) [facility] Unit Donor # [id number] -K 12/29/2013 3:17 AM CDT [facility] Product Code E0332 12/29/2013 3:17 AM CDT [facility] Unit Description E0332 RBC, IRR, LR, -1 12/29/2013 3:17 AM CDT [facility] ABO Donor Type B 12/29/2013 3:17 AM CDT [facility] Rh Type Unit NEG 12/29/2013 3:17 AM CDT [facility] Crossmatch Interpretation Compatible 12/29/2013 3:17 AM CDT [facility] Unit Status Returned 12/29/2013 3:17 AM CDT [facility] Miscellaneous samples (specimen) BLOOD SPECIMEN / Unknown 12/25/2013 5:43 PM CDT 12/25/2013 5:57 PM CDT Ignacio Moon MD LAB - BLOOD BANK ORD [id number] [employer] Performing Organization Address [facility] Co de Phone Number [facility] [address] [place] [address] * (ABNORMAL) RETIC COUNT (12/25/2013 4:03 PM CDT) Pathologist [facility] Reticulocyte Count 4.81(H) 0.5 - 3.6 % 12/25/2013 5:08 PM CDT [facility] LABORATORY Reticulocyte Absolute 0.1265(H) 0.0424 - 0.0702 x10^6/uL 12/25/2013 5:08 PM CDT [facility] Reticulocyte Immature Fractionated 20.7 8.9 - 24.1 % 12/25/2013 5:08 PM CDT [facility] Hemoglobin Retic 33.5 30.4 - 39.7 pg 12/25/2013 5:08 PM CDT [facility] Blood BLOOD SPECIMEN / Unknown 12/25/2013 4:03 PM CDT 12/25/2013 4:12 PM CDT Ignacio Moon MD LAB - HEMATOLOGY JERRY KEENAN Performing Organization Address [facility]/ZIP Co de Phone Number [facility] [address] [place] [address] * (ABNORMAL) LDH BLOOD (12/25/2013 4:03 PM CDT) LDH 289(H) 140 - 260 U/L 12/25/2013 4:47 PM CDT [facility] Blood BLOOD SPECIMEN / Unknown 12/25/2013 4:03 PM CDT 12/25/2013 4:12 PM CDT Ignacio Moon MD LAB - CHEMISTRY SAMRA SMALL[place]OD Performing Organization Address [facility] Co de Phone Number [facility] [address] [place] [phone] * CK BLOOD (12/25/2013 4:03 PM CDT) Only the most recent of2 resultswithin the time period is included. CK 89 29 - 168 U/L 12/25/2013 4:49 PM CDT [facility] Blood BLOOD SPECIMEN / Unknown 12/25/2013 4:03 PM CDT 12/25/2013 4:12 PM CDT Ignacio Moon MD LAB - CHEMISTRY ORDBarb SMALLWOOD Performing Organization Address [facility]/ZIP Co de Phone Number [facility] [address] [place] [phone] * TYPE + SCREEN PANEL (12/24/2013 11:27 PM CDT) ABO AB 12/25/2013 12:17 AM CDT [facility] Rh Type Positive 12/25/2013 12:17 AM CDT [facility] Antibody Screen Negative 12/25/2013 12:17 AM CDT [facility] Miscellaneous samples (specimen) BLOOD SPECIMEN / Unknown 12/24/2013 11:27 PM CDT 12/24/2013 11:31 PM CDT Mera Hoffman MD LAB - BLOOD BAN K ORDERABLES [facility] [address] [place] [address] * (ABNORMAL) URINALYSIS ROUTINE AUTO (12/24/2013 11:26 PM CDT) Only the most recent of3 resultswithin the time period is included. Color UA Yellow Straw, Yellow, Dark Yellow 12/24/2013 11:37 PM T [facility] Clarity UA Clear 12/24/2013 11:37 PM T [facility] Specific [place] UA 1.020 1.005 - 1.030 12/24/2013 11:37 PM T [facility] pH UA 7.5 5.0 - 8.0 pH 12/24/2013 11:37 PM T [facility] Protein UA Negative Negative 12/24/2013 11:37 PM T [facility] Blood UA 1+(A) Negative 12/24/2013 11:37 PM T [facility] Leukocyte UA Negative Negative 12/24/2013 11:37 PM T [facility] Nitrite UA Negative Negative 12/24/2013 11:37 PM T [facility] Glucose UA Negative Negative 12/24/2013 11:37 PM T [facility] Ketone UA Negative Negative 12/24/2013 11:37 PM T [facility] Bilirubin UA Negative Negative 12/24/2013 11:37 PM T [facility] Urobilinogen UA 1.0 0.1 - 1.0 EU/dL 12/24/2013 11:37 PM T [facility] Urine Microscopy Urine microscopy to follow 12/24/2013 11:37 PM CDT [facility] Urine URINE SPECIMEN OBTAINED BY CLEAN CATCH PROCEDURE / Unknown 12/24/2013 11:26 PM CDT 12/24/2013 11:31 PM CDT Mera Hoffman MD LAB - URINALYSI S ORDERABLES Performing Organization Address City/[facility] Co de Phone Number [facility] [address] [place] [address] * (ABNORMAL) URINALYSIS MICROSCOPIC ONLY (12/24/2013 11:26 PM CDT) Only the most recent of3 resultswithin the time period is included. RBC UA 2-5 0-2, 2-5 # /hpf 12/24/2013 11:45 PM CDT [facility] WBC UA 0-2 0-2, 2-5 # /hpf 12/24/2013 11:45 PM T [facility] Bacteria UA 1+(A) None Seen, Trace 12/24/2013 11:45 PM T [facility] Epithelial Cell UA 0-2 0-2, 2-5 12/24/2013 11:45 PM T [facility] Mucus UA 2+ 12/24/2013 11:45 PM T [facility] Amorphous Phosphate Crystals 1+(A) None Seen 12/24/2013 11:45 PM T [facility] Urine URINE SPECIMEN OBTAINED BY CLEAN CATCH PROCEDURE / Unknown 12/24/2013 11:26 PM CDT 12/24/2013 11:31 PM CDT Mera Hoffman MD LAB - URINALYSI S ORDERABLES Performing Organization Address City/[facility]/ZIP Co de Phone Number [facility] [address] [place] [address] * BILIRUBIN DIRECT (12/24/2013 9:33 PM CDT) Bilirubin Direct 0.40 0.11 - 0.43 mg/dL 12/24/2013 9:56 PM T [facility] Blood BLOOD SPECIMEN / Unknown Lab Venipuncture / Unknown 12/24/2013 9:33 PM CDT 12/24/2013 9:43 PM CDT Mera Hoffman MD LAB - CHEMISTRY ORDERABLES Performing Organization Address City/[facility]/ZIP Co de Phone Number [facility] [address] [place] [address] * (ABNORMAL) CBC W MANUAL DIFFERENTIAL (12/21/2013 8:08 AM CDT) WBC 4.9 4.5 - 14.5 x10^9/L 12/21/2013 8:27 AM CDT [facility] RBC 3.86(L) 4.00 - 5.20 x10^12/L 12/21/2013 8:27 AM T [facility] Hemoglobin 10.9(L) 11.5 - 15.5 gm/dL 12/21/2013 8:27 AM [facility] Hematocrit 31.9(L) 35.0 - 45.0 % 12/21/2013 8:27 AM T [facility] MCV 82.6 77.0 - 95.0 fl 12/21/2013 8:27 AM T [facility] MCH 28.2 25.0 - 33.0 pg 12/21/2013 8:27 AM T [facility] MCHC 34.2 31.0 - 37.0 gm/dL 12/21/2013 8:27 AM [facility] RDW-CV 12.9 11.5 - 14.0 % 12/21/2013 8:27 AM [facility] MPV 9.6(H) 6.0 - 9.5 fl 12/21/2013 8:27 AM [facility] Platelet Count 180 100 - 400 x10^9/L 12/21/2013 8:27 AM T [facility] Blood BLOOD SPECIMEN / Unknown Lab Venipuncture / Unknown 12/21/2013 8:08 AM CDT 12/21/2013 8:19 AM CDT Yannirenato Bob DO LAB - HEMATOLOGY ORDERABLES Performing Organization Address City/[facility]/ZIP Co de Phone Number [facility] [address] [place] [address] * (ABNORMAL) DIFFERENTIAL MANUAL (12/21/2013 8:08 AM CDT) WBC Auto 4.9 4.5 - 14.5 x10^9/L 12/21/2013 9:07 AM CDT [facility] Neutrophil % Manual 44 24 - 66 % 12/21/2013 9:07 AM CDT [facility] Lymphocytes % Manual 37 22 - 61 % 12/21/2013 9:07 AM CDT [facility] Monocytes % Manual 17(H) 3 - 15 % 12/21/2013 9:07 AM CDT [facility] Eosinophils % Manual 2 0 - 10 % 12/21/2013 9:07 AM T [facility] Cells Counted 100 # cells 12/21/2013 9:07 AM T [facility] RBC Morphology Normal 12/21/2013 9:07 AM T [facility] WBC Morph Normal 12/21/2013 9:07 AM CDT [facility] Blood BLOOD SPECIMEN / Unknown Lab Venipuncture / Unknown 12/21/2013 8:08 AM CDT 12/21/2013 8:19 AM CDT Yanni Shaye Bob DO LAB - HEMATOLOGY ORDERABLES Performing Organization Address City/[facility]/ZIP Co de Phone Number [facility] [address] [place] [address] * CULTURE STREP GROUP A (12/19/2013 4:28 PM CDT) Culture Beta Strep No Growth of Groups A, C or G Beta Streptococc us. [facility] Throat swab (specimen) ENTIRE THROAT (SURFACE REGION OF NECK) / Unknown 12/19/2013 4:28 PM CDT 12/19/2013 10:04 PM CDT Narrative [facility] - 12/21/2013 8:29 AM CDT ReeseSpecimen#[id number] Reese Loc/Rm/Bed: ED// Historical Provider LAB - MICROBIOLOG Y ORDERABLES [address] [phone] Care Teams Product Promoter Retail Pet Relationship Specialty Start Date End Date Eduardo López PA-C [address] [place] [address] PCP - General Physician Sport Internship 07/25/23
--- OUTSIDE RECORDS SUMMARY | 2024-04-04 01:20 | XMS_ITS | Encounter Summary ---
Author Organization [facility] Address [address] [place] [address] Care Team Providers Care Associate Publisher Name Role Phone Eduardo López PA-C Primary Care Provider Reason for Visit * Reason Onset Date Comments Medication Prior Auth Request 11/23/2023 Encounter Details Date Type Department Care Team (Late st Contact Info) Description 11/23/2023 Telephone [facility] - Endocrinology [address] [place] [address], [place] [address] Meghana White MD [address] [place] [address] [place] [address] Medication Prior Auth Request Social [...] Telephone Encounter - Lisa Goel LPN - 11/23/2023 12:23 PM CDT PA was approved by insurance, 11/23/23 - 03/26/24. Pharmacy notified. * Telephone Encounter - Lisa Goel LPN - 11/23/2023 10:42 AM CDT Insurance requires prior auth for BD insulin pen needles. Prior auth request submitted on line at [employer]. Office notes submitted with request Yes. Waiting for insurance response. Cover My Meds [id number] documented in this encounter Plan of Treatment Upcoming Encounters Date Type Department Care Team (Late st Contact Info) Description 04/09/2024 8:40 AM GRIT REMOVAL OPERATOR Office Visit [facility] - Endocrinology [address] [facility] [place] [address] Hilario Traore MD [address] [place] [address] documented as of this encounter Visit Diagnoses Not on filedocumented in this encounter Care Teams Associate Publisher Relationship Specialty Start Date End Date Eduardo Lópze, MARITOC [address] [place] [address] PCP - General Physician Industrial Laborer 07/25/23 documented as of this encounter
--- OUTSIDE RECORDS SUMMARY | 2024-04-04 01:20 | XMS_ITS | Encounter Summary ---
Author Organization [facility] Address [address] [place] [address] Care Team Providers Care Ruby On Rails Developer Name Role Phone Eduardo López PA-C Primary Care Provider Encounter Details Date Type Department Care Team (Late st Contact Info) Description 11/14/2023 Telephone [facility] - Endocrinology [address] [facility], [place] [address] Meghana White MD [address] [place] [address] [place] [address] Social History Tobacco Use Types Packs/Day Years [...] encounter Miscellaneous Notes * Telephone Encounter - Pia Montez - 11/14/2023 9:45 AM CDT Current Provider: Dr. Reji White Reason for Call: Ms. Himanshu Damon has appt Mon11/17/23 she put her new Dexcom G6 Sensor on yesterday, mom says it looks like she is getting her insulin, but the sensor part is bleeding. Mom saysthey need a new sensor, mom says she is due for it 11/18 or 11/21/23. She can't buy it outright, it' $400. Is there any way she can get a new sensor. Her sugars are all over the place, she has to have the sensor. Could she get a new script dated earlier. Please call Mom Cat. Patient Call Back Number: [phone] documented in this encounter Plan of Treatment Upcoming Encounters Date Type Department Care Team (Late st Contact Info) Description 04/09/2024 8:40 AM MOLD MAKER PLASTER Office Visit [facility] - Endocrinology [facility] [facility], [place] [address] Hilario Traore MD [address] [facility] [address] [place] [address] documented as of this encounter Visit Diagnoses Not on filedocumented in this encounter Care Teams Ruby On Rails Developer Relationship Specialty Start Date End Date Eduardo López PA-C [address] [place] [address] PCP - General Physician Superintendent Laundry 07/25/23 documented as of this encounter
--- OUTSIDE RECORDS SUMMARY | 2024-04-04 01:20 | XMS_ITS | Encounter Summary ---
Author Organization [facility] Address [address] [place] [address] Care Team Providers Care Newspaper Photo Editor Name Role Phone Eduardo López PA-C Primary Care Provider [phone] Encounter Details Date Type Department Care Team (Late st Contact Info) Description 08/15/2023 Orders Only [facility] - Endocrinology [address] [facility], [place] [address] Thuy Lerner, RN Type 1 diabetes mellitus without complication (HCC) [...] st Contact Info) Description 04/09/2024 8:40 AM WIRE FRAME LAMPSHADE MAKER Office Visit [facility] - Endocrinology [address] [facility], [place] [address] Hilario Traore MD [address] [facility] [address] [place] [address] documented as of this encounter Visit Diagnoses Diagnosis Type 1 diabetes mellitus without complication (HCC)- Primary Type I (juvenile type) diabetes mellitus without mention of complication, not stated as uncontrolled documented in this encounter Care Teams Newspaper Photo Editor Relationship Specialty Start Date End Date Eduardo López PA-C [address] [place] [address] PCP - General Physician Refrigerating Oiler 07/25/23 documented as of this encounter
--- OUTSIDE RECORDS SUMMARY | 2024-04-04 01:20 | XMS_ITS | Encounter Summary ---
Author Organization [facility] Address [address] [place] [address] Care Team Providers Care Under Cutter Name Role Phone Eduardo López PA-C Primary Care Provider [phone] Encounter Details Date Type Department Care Team (Late st Contact Info) Description 11/02/2023 Orders Only [facility] - Endocrinology [address] [place] [address], [place] [address] Meghana White MD [address] [place] [address] [place] [address] Social History Tobacco Use Types [...] st Contact Info) Description 04/09/2024 8:40 AM COCOA POWDER MIXER OPERATOR Office Visit [facility] - Endocrinology [address] [facility], [place] [address] Hilario Traore MD [address] [facility] [address] [place] [address] documented as of this encounter Visit Diagnoses Not on filedocumented in this encounter Care Teams Under Cutter Relationship Specialty Start Date End Date Eduardo López PA-C [address] [place] [address] PCP - General Physician Soccer Coach 07/25/23 documented as of this encounter
--- OUTSIDE RECORDS SUMMARY | 2024-04-04 01:20 | XMS_ITS | Encounter Summary ---
Author Organization [facility] Address [address] [place] [address] Care Team Providers Care Ap Operator Name Role Phone Marcella Jones MD Primary Care Provider Encounter Details Date Type Department Care Team (Late st Contact Info) Description 04/04/2019 Orders Only [facility] - Orthopedics [address] [place] [address] Gabriela Lentz, RN [address] [facility] [address] [place] [address] Right knee pain, unspecified chronicity Social History Tobacco Use Types Packs/Day Years [...] st Contact Info) Description 04/09/2024 8:40 AM CLOTHING SORTER Office Visit [facility] - Endocrinology [address] [facility], [place] [address] Hilario Traore MD [address] [facility] [address] [place] [address] documented as of this encounter Results * XR KNEE RIGHT 4VW OR MORE (04/04/2019 1:15 PM CLOTHING SORTER) Anatomical Region Laterality Modality Lower Extremity Radiographic Zhane ging 04/04/2019 1:15 PM CLOTHING SORTER Impressions 04/04/2019 1:16 PM CLOTHING SORTER Normal views of the right knee Reading Radiologist: Cameron Lino MD on 04/04/2019 at 1:16 PM Narrative 04/04/2019 1:16 PM CLOTHING SORTER INDICATION: Right knee pain COMPARISON: None available. [...] Visit Diagnoses Diagnosis Right knee pain, unspecified chronicity- Primary Right knee pain, unspecified chronicity documented in this encounter Care Teams Ap Operator Relationship Specialty Start Date End Date Marcella Jones MD [address] [place] [address] PCP - General Pediatrics 03/29/19 07/24/23 documented as of this encounter
--- OUTSIDE RECORDS SUMMARY | 2024-04-04 01:20 | XMS_ITS | Encounter Summary ---
Author Organization [facility] Address [address] [place] [address] Care Team Providers Care Hand Flesher Name Role Phone Eduardo López PA-C Primary Care Provider Reason for Visit * Reason Onset Date Comments Medication Clarification 08/14/2023 Encounter Details Date Type Department Care Team (Late st Contact Info) Description 08/14/2023 Telephone [facility] - Endocrinology [address] [facility], [place] [address] Meghana White MD [address] [place] [address] [place] [address] Medication Clarification Social History Tobacco Use Types Packs/Day Years [...] encounter Miscellaneous Notes * Telephone Encounter - DemianAzeb - 08/14/2023 9:05 AM CDT Pt mother calling would like a call back daughter in the ER about to be Discharged, wants to know if they should go to the u ER or make an apt with in regards to pt having some kind of trimmers or muscle spasm and her arms and legs flapping Pt mother would like a call juliana Pt mothers Call back # [phone] documented in this encounter Plan of Treatment Upcoming Encounters Date Type Department Care Team (Late st Contact Info) Description 04/09/2024 8:40 AM PROTECTIVE SIGNAL REPAIRER Office Visit [facility] - Endocrinology [address] [facility], [place] [address] Hilario Traore MD [address] [facility] [address] [place] [address] documented as of this encounter Visit Diagnoses Not on filedocumented in this encounter Care Teams Hand Flesher Relationship Specialty Start Date End Date Eduardo López PA-C [address] [place] [address] PCP - General Physician Owner Operator 07/25/23 documented as of this encounter
--- OUTSIDE RECORDS SUMMARY | 2024-04-04 01:20 | XMS_ITS | Encounter Summary ---
Author Organization [facility] Address [address] [place] [address] Care Team Providers Care Occupational Nurse Name Role Phone Eduardo López PA-C Primary Care Provider [phone] Reason for Visit * Reason Onset Date Comments Medication Clarification 08/28/2023 Encounter Details Date Type Department Care Team (Late st Contact Info) Description 08/28/2023 Telephone [facility] - Endocrinology [address] [facility], [place] [address] Meghana White MD [address] [place] [address] [place] [address] Medication Clarification Social History Tobacco [...] * Telephone Encounter - Azeb Arciniega - 08/28/2023 8:05 AM CDT Pt mother calling stated that her daughters constantino is about to and needs to know what to do, they got there decom and needs to have help putting it on, Pt mother call back # [phone] documented in this encounter Plan of Treatment Upcoming Encounters Date Type Department Care Team (Late st Contact Info) Description 04/09/2024 8:40 AM MINE EXPERT Office Visit [facility] - Endocrinology [address] [facility], [place] [address] Hilario Traore MD [address] [facility] [place] [address] documented as of this encounter Visit Diagnoses Not on filedocumented in this encounter Care Teams Occupational Nurse Relationship Specialty Start Date End Date Eduardo López PA-C [address] [place] [address] PCP - General Physician Academic Coach 07/25/23 documented as of this encounter
--- OUTSIDE RECORDS SUMMARY | 2024-04-04 01:20 | XMS_ITS | Encounter Summary ---
Author Organization [facility] Address [address] [place] [address] Care Team Providers Care Mission Analyst Name Role Phone Eduardo López PA-C Primary Care Provider Reason for Referral * Other Medical (Routine) - Pending Review Specialty Diagnoses / Procedures Referred By Dali t Referred To Contact Endocrinology Diagnoses Type 1 diabetes mellitus without complication (HCC) Meghana White MD [address] [place] [phone], [facility] [place] [address] Referral ID Status Reason Start Date Expiration Date Visits Requested Visits Authorized [id number] Pending Review Specialty Services Required 07/25/2023 07/24/2024 5 5 Reason for Visit * Consult, Test & Treat (Urgent) - Closed Specialty Diagnoses / Procedures Referred By Contac t Referred To Contact Endocrinology Diagnoses Type 1 diabetes (HCC) Eduardo López PA-C [address] [place] [address] Referral ID Status Reason Start Date Expiration Date Visits Re quested Visits Authorized [id number] Closed 07/21/2023 07/20/2024 1 1 Encounter Details Date Type Department Care Team (Late st Contact Info) Description 07/25/2023 8:20 AM CDT Office Visit [facility] - Endocrinology [address] [place] [address], [place] [address] Meghana White MD [address] [place] [address] [place] [address] Type 1 diabetes mellitus without complication (HCC) (Primary Dx) Social History Tobacco Use Types Packs/Day Years [...] Sign Reading Time Taken Comments Blood Pressure 111/74 07/25/2023 8:28 AM CDT Pulse 92 07/25/2023 8:28 AM CDT Temperature - - Respiratory Rate - - Oxygen Saturation 98% 07/25/2023 8:28 AM CDT Inhaled Oxygen Concentration - - Weight 53.8 kg (118 lb 9.6 oz) 07/25/2023 8:28 A M CDT Height 162.6 cm (5' 4 ) 07/25/2023 8:28 AM CDT Body Mass Index 20.36 07/25/2023 8:28 AM CDT documented in this encounter Functional Status Functional [...] No 12/30/2013 documented as of this encounter Patient Instructions * Patient Instructions* Meghana White MD - 07/25/2023 9:43 AM CDT Thank you for visiting [facility] Endocrinology. We appreciate your confidence in allowing us to participate in your health care. You may receive a survey about your visit with us today. Making our patients happy is our mission. Please tell us if we made the right impression on you- and how we can serve you better. APPOINTMENTS: [phone] or you can send a inDegree message. Normal business hours are from 8:00 am to 4:30 pm Monday through Monday. Fax# tk [phone] REFILL REQUESTS: contact your pharmacy who will reach out to us. If you have changes to your prescription, you will need to contact us directly at [phone] or send your doctor a inDegree message. We request that all prescription refills be requested during regular office phone hours. If your prescription requires a prior authorization, it may take several days for us to get approval from your[employer] company before we can refill your prescription. Please do not wait until you are completely out before contacting us. MEDICAL EMERGENCY: Please call 911 or go to the nearest Emergency Room. After hours urgent calls that cannot wait until phone lines are open on the next business day are given to the Mechanical Meter Tester physician stone polisher. Please call [phone] and identify yourself as a patient in our practice needing to speak to Mechanical Meter Tester. The cinema operator will contact the physician stone polisher. You can generally expect a return call within 30 minutes. On weekends, physicians are seeing hospitalized patients and there may be a longer wait. Test and laboratory results: Our practice typically reports lab and test results through letters orMyChart. Please allow 10 days from when your tests are completed to receive the results in the mail. Labs performed outside of [facility] facility, [facility] or [facility] may delay the results getting to us. Please contact the lab and request that they are faxed to us at [phone] IF GOING TO [facility] or [facility]- TAKE LAB ORDER WITH YOU or they may turn you away [facility]'s missed appointment policy is: Patients with 3 consecutively missed appointments OR 3 missed appointments in a 12 month period will no longer be seen by Endocrinology. They will be asked to seek consultation outside of [facility]. A missed appointment is defined as: Arriving to a scheduled appointment too late to be seen (Patients who arrive to clinic later than their scheduled appointment time may not be seen) Not showing up or calling 24-48 hours prior to an appointment An appointment cancelled less than 24 hours in advance ADDRESS: [facility], [address] [place] [address], 2nd [place] [address] Website: [email or web address] for additional information about [facility] and an interactive health encyclopedia. Same Lantus, use Novolog 1U for 7-8 grams of carbs, and additional 3U if glucose over 200, 5u if over 300 Correct low glucose with 15 gm of carbs, and repeat 15 gm carb in 15 mins if glucose still low Do not hold Lantus even you are no eating. Check urine ketone is you feel sick Continue to work on carb count skill Ref to see our dietitian We will insulin pump with cgm See me back in 4 months. If you will be seen at a pump clinic documented in this encounter Progress Notes * Meghana White MD - 07/25/2023 8:20 AM CDT [facility] Endocrine Patient Note Date of Service- 07/25/2023 Chief Complaint or Purpose for Referral: New onset DM1 presented as DKA History of Present Illness: Himanshu Damon is a 17 year old female, with PMH below, who presents to the [facility] endocrine clinic today for T1DM. She is referred by Eduardo López PA-C and this is her first visit with us. She was recently dx with T1DM, when she presented to OSH with DKA early June 2023. On presentation, she had symptoms of polyuria, abdominal pain and decrease mental status. She was found to have hyperglycemia crisis, glucose 600s, gap 20 with severe acidosis. She was admitted to ICU for insulin infusion, eventually with resolution of DKA and transition to SQ insulin At discharge she was started on Lantus 35U qam, not missing Novolog 10u with meal, additional 5-8 u at bedtime if gluocose TDD 70u Has louis cgm, TIR 69%, with glucose ranging from 50-300s. She is compliant with insulin injection and comfortable to do the injection. She has started to learn the carb count skill and try to eat a carb consistent diet. 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 She is not able to read or calculate 3 digits numbers. This makes her not able to calculate correct bolus insulin based on glucose level. She experienced hypoglycemia in clinic with bs dropping to 50s, and was corrected by glucose tabs. FHx: mother has GDM. Shx: non contributory Past Medical History: Diagnosis Date ??? Brown recluse spider bite 12/15/13 R leg, hospitalized 12/20- ??? Medical history reviewed with no changes previously healthy with no previous hospitalizations Past Surgical History: Procedure Laterality Date ??? NEGATIVE SURGICAL HISTORY ??? Tympanostomy Bilateral ROS unremarkable otherwise Current Outpatient Medications Medication Sig ??? acetaminophen (TYLENOL) 500 MG tablet Take 500 mg by mouth every 4 hours as needed for Pain. Maximum allowable Acetaminophen amount = 4 Grams (4000 mg) / 24 hours. ??? Acetone, Urine, Test (Ketone Test) STRP 1 Each by In Vitro route as needed ??? blood glucose test strip Use 1 (one) strip as instructed as needed ??? Continuous Glucose Sensor (FreeStyle Louis 3 Sensor) MISC APPLY TO THE BACK OF THE ARM EVERY 14DAYS ??? Glucagon (Baqsimi Two Pack) 3 MG/DOSE POWD Phoenix 3 mg into the nose as directed ??? ibuprofen (MOTRIN) 200 MG tablet Take 200 mg by mouth every 6 hours as needed for Pain. ??? insulin aspart (NovoLOG FLEXPEN) pen Inject 8 (eight) Units to 13 (thirteen) Units subcutaneously 3 times daily before meals 8 units with 50-60 gm carb of meals, and add 3 units if glucose over 200, add 5 units if over 300, daily max 50 units ??? Lantus SoloStar pen Inject 35 (thirty five) Units subcutaneously every 24 hours ??? OneTouch Verio test strip 1 STRIP NEEDED USE INSTRUCTED ??? ReliOn Pen [place]ewell 32G X 4 MM MISC Inject 1 Each subcutaneously 4 times daily ??? SPRINTEC 28 0.25-35 MG-MCG tablet Take 1 tablet by mouth once daily No current facility-administered medications for this visit. Physical Exam: Constitutional: BP 111/74 (BP Location: Left arm, Patient Position: Sitting, BP Cuff Size: Adult) Pulse 92 Ht 1.626 m (5' 4 ) Wt 53.8 kg (118 lb 9.6 oz) SpO2 98% General appearance alert, cooperative, no distress, appears stated age NECK Lungs Heart Abdomen Non obese Extremities Pulses Neuro aaox4 Data: Review outside hospital records CGM download libre3 iphone TIR 69% Low 2% Severe low 1% Latest Reference Range & Units 07/25/23 08:43 Hemoglobin A1c POCT % 11.7 Assessment and plan : Diagnoses and all orders for this visit: Type 1 diabetes mellitus without complication (HCC) - HEMOGLOBIN A1C - POINT OF CARE (AMB) [facility] - ReliOn Pen [place] 32G X 4 MM MISC; Inject 1 Each subcutaneously 4 times daily - Ref to ENDO Diabetes Self Mgt Ed and Training -CSM; Standing - CBC W/ DIFFERENTIAL; Future - COMPREHENSIVE METABOLIC PANEL; Future - TSH; Future - MICROALB/CREAT RATIO URINE RANDOM PANEL; Future - LIPID PROFILE; Future - GLUTAMIC ACID DECARBOXYLASE (PATRICIA) ANTIBODY; Future - GLUCOSE - POINT OF CARE (AMB) [facility] - C-PEPTIDE; Future Other orders - Lantus SoloStar pen; Inject 35 (thirty five) Units subcutaneously every 24 hours - insulin aspart (NovoLOG FLEXPEN) pen; Inject 8 (eight) Units to 13 (thirteen) Units subcutaneously 3 times daily before meals 8 units with 50-60 gm carb of meals, and add 3 units if glucose over 200, add 5 units if over 300, daily max 50 units - Glucagon (Baqsimi Two Pack) 3 MG/DOSE POWD; Phoenix 3 mg into the nose as directed - Acetone, Urine, Test (Ketone Test) STRP; 1 Each by In Vitro route as needed 17 yo female is here first time tor T1DM, presented as DKA early June 2023 # new onset T1DM, with hypo and hyperglycemia - on basal bolus regimen, improved control - DM regimen challenged by number dyslexia:not able to correct insulin dose with hyper or hypoglycemia Even with cgm, she has 1% severe hypoglycemia Rec: Continue cgm, based on TDD and cgm, I think Lantus 35U is appropriate Use ICR to 7-8, ie 8U with 50-60 gm carb diet, plus 3u if over 200, 5u if over 500 Okay use SSI for night time correction Due to number dyslexia, brittle T1DM, I strongly recommend a close loop insulin pump and cgm system, such as tandem with dexcom Lab today Ref to CDE RTC 4m pump clinic. I spend 60 mins on patient education and counseling on T1Dm management. 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, [place] [address] Hilario Traore MD [address] [facility] [address] [place] [address] Scheduled Referrals Name Type Priority Associated Diagnoses Orde r Schedule Ref to ENDO Diabetes Self Mgt Ed and Training -[facility] Outpatient Referral Routine Type 1 diabetes mellitus without complication (HCC) 5 Occurrences starting 07/25/2023 until 07/24/2024 documented as of this encounter Procedures Procedure Name Priority Date/Time Associated Diagnosis Comments GLUCOSE - POINT OF CARE (AMB) U Routine 07/25/2023 9:53 AM CDT Type 1 diabetes mellitus without complication (HCC) HEMOGLOBIN A1C - POINT OF CARE (AMB) U Routine 07/25/2023 8:43 AM CDT Type 1 diabetes mellitus without complication (HCC) documented in this encounter Results * C-PEPTIDE (07/25/2023 11:52 AM CDT) C-Peptide 0.7 0.5 - 3.3 ng/mL 07/26/2023 9:33 PM CDT [employer] ([facility]) Comment: INTERPRETIVE INFORMATION: Serum, C-Peptide Reference Interval applies to fasting specimens. To convert to nmol/L, multiply by 0.33 Performed By: Mister Bell [address] [place] [address] Lieutenant Ballistics: Luis Campoverde MD, PhD CLIA Number: [id number] Blood BLOOD SPECIMEN / Unknown Lab Venipuncture / Unknown 07/25/2023 11:52 AM CDT 07/25/2023 12:11 PM CDT Meghana White MD LAB - CHEMISTRY ORDE SELIN Performing Organization Address [facility] Co de Phone Number [employer] [facility]) [address] * (ABNORMAL) GLUTAMIC ACID DECARBOXYLASE (PATRICAI) ANTIBODY (07/25/2023 11:52 AM CDT) Glutamic Acid Decarboxylase Antibody 51.9(H) 0.0 - 5.0 IU/mL 07/27/2023 8:03 AM CDT [facility] ([facility]) Comment: INTERPRETIVE INFORMATION: ??Glutamic Acid Decarboxylase Antibody A value greater than 5.0 IU/mL is considered positive for Glutamic Acid Decarboxylase Antibody (PATRICIA Ab). This assay is intended for the semi-quantitative determination of the PATRICIA Ab in human serum. Results should be interpreted within the context of clinical symptoms. Performed By: [place] [address] Lieutenant Ball[employer]: Luis Campoverde MD, PhD CLIA Number: [id number] Blood BLOOD SPECIMEN / Unknown Lab Venipuncture / Unknown 07/25/2023 11:52 AM CDT 07/25/2023 12:11 PM CDT Meghana White MD LAB - SEROLOGY ORDER ASIM Performing Organization Address City/[facility] Co de Phone Number [employer] ([facility]) [address] * (ABNORMAL) LIPID PROFILE (07/25/2023 11:52 AM CDT) Cholesterol Total 250(H) <200 mg/dL 07/25/2023 12:46 PM CDT [facility] HDL 106 >40 mg/dL 07/25/2023 12:46 PM CDT [facility] Comment: ATP III Classification of HDL Cholesterol: ? <40 mg/dL: ??Considered a major risk factor. ? >60 mg/dL: ??Considered a negative risk factor. ? LDL Calculated 133(H) <100 mg/dL 07/25/2023 12:46 PM T [facility] Comment: ATP III Classification of LDL Cholesterol: ?<100 mg/dL: ??Optimal ? 100 - 129 mg/dL: ??Near Optimal/Above Optimal ? 130 - 159 mg/dL: ??Borderline High ? 160 - 189 mg/dL: ??High ?>190 mg/dL: ??Very High ? Triglycerides 53 <150 mg/dL 07/25/2023 12:46 PM [facility] Comment: ATP III Classification of Triglycerides: ?<150 mg/dL: ??Normal ? 150 - 199 mg/dL: ??Borderline High ? 200 - 400 mg/dL: ??High ?>500 mg/dL: ??Very High Blood BLOOD SPECIMEN / Unknown Lab Venipuncture / Unknown 07/25/2023 11:52 AM CDT 07/25/2023 12:13 PM CDT Meghana White MD LAB - CHEMISTRY [facility] Organization Address [facility] Co de Phone Number [facility] [address] [place] [address], [facility] [phone] * MICROALB/CREAT RATIO URINE RANDOM PANEL (07/25/2023 11:52 AM CDT) Albumin Random Urine <5.0 Not Established ug/mL 07/25/2023 12:44 PM CDT [facility] Creatinine Urine 56.43 Not Established mg/dL 07/25/2023 12:44 PM T [facility] Urine Albumin/Creati nine Ratio <9 <30 mg/g 07/25/2023 12:44 PM T [facility] Albumin/Creati nine Ratio Urine See Comment <30 mg/g 07/25/2023 12:44 PM [facility] Comment:Unable to calculate the Urine Albumin/Creatinine Ratio due to one or more analyte concentration(s) being outside the measuring limits of the instrument. Urine URINE SPECIMEN OBTAINED BY CLEAN CATCH PROCEDURE / Unknown Collection / Unknown 07/25/2023 11:52 AM CDT 07/25/2023 12:14 PM CDT Meghana White MD LAB - URINE CHEMISTR Y ORDERABLES Performing Organization Address City/[facility]/ZIP Co de Phone Number [address] [address], [facility] [phone] * TSH (07/25/2023 11:52 AM CDT) TSH 0.760 0.350 - 4.940 uIU/mL 07/25/2023 1:04 PM [facility] Blood BLOOD SPECIMEN / Unknown Lab Venipuncture / Unknown 07/25/2023 11:52 AM CDT 07/25/2023 12:13 PM CDT Meghana White MD LAB - CHEMISTRY ORDE RABLES Performing Organization Address City/[facility]/ZIP Co de Phone Number [address] [address], [facility] [phone] * (ABNORMAL) COMPREHENSIVE METABOLIC PANEL (07/25/2023 11:52 AM CDT) BUN 20 7 - 26 mg/dL 07/25/2023 12:46 PM [facility] Creatinine 0.48(L) 0.56 - 0.96 mg/dL 07/25/2023 12:46 PM [facility] Sodium 140 136 - 145 mmol/L 07/25/2023 12:46 PM T [facility] Potassium 3.8 3.5 - 4.5 mmol/L 07/25/2023 12:46 PM T [facility] Chloride 105 98 - 107 mmol/L 07/25/2023 12:46 PM [facility] CO2 27 22 - 29 mmol/L 07/25/2023 12:46 PM [facility] Glucose 106 70 - 115 mg/dL 07/25/2023 12:46 PM [facility] Calcium 9.3 8.4 - 10.2 mg/dL 07/25/2023 12:46 PM [facility] Protein Total 7.0 6.0 - 8.3 g/dL 07/25/2023 12:46 PM [facility] Albumin 3.8 3.4 - 5.0 g/dL 07/25/2023 12:46 PM [facility] Bilirubin Total 0.4 0.2 - 1.2 mg/dL 07/25/2023 12:46 PM [facility] Alkaline Phosphatase 112 40 - 150 U/L 07/25/2023 12:46 PM [facility] ALT 47 5 - 55 U/L 07/25/2023 12:46 PM [facility] AST 22 5 - 34 U/L 07/25/2023 12:46 PM [facility] Anion Gap 8 6 - 16 07/25/2023 12:46 PM [facility] BUN/Creatinine Ratio 42(H) 7 - 23 07/25/2023 12:46 PM [facility] Osmolality Calculated 293 275 - 295 mOsm/kg 07/25/2023 12:46 PM [facility] Albumin/Globulin Ratio 1.2 1.1 - 2.3 07/25/2023 12:46 PM [facility] eGFR by CKD-EPI >90 >=90 mL/min/1.7 3 m2 07/25/2023 12:46 PM [facility] Blood BLOOD SPECIMEN / Unknown Lab Venipuncture / Unknown 07/25/2023 11:52 AM CDT 07/25/2023 12:13 PM [facility] [place] Meghana White MD LAB - CHEMISTRY [facility] Organization Address City/State/ZIP Co de Phone Number [facility] [address] [place] [address], [facility] [phone] * (ABNORMAL) CBC W/ DIFFERENTIAL (07/25/2023 11:52 AM CDT) [facility] WBC 6.2 4.0 - 10.7 x10E9/L 07/25/2023 12:18 PM [facility] RBC Count 3.87(L) 3.90 - 5.20 x10E12/L 07/25/2023 12:18 PM [facility] Hemoglobin 12.2 11.9 - 15.8 g/dL 07/25/2023 12:18 PM [facility] Hematocrit 37.7 34.8 - 46.1 % 07/25/2023 12:18 PM [facility] MCV 97.4 80.0 - 98.0 fL 07/25/2023 12:18 PM [facility] MCH 31.5 26.7 - 33.6 pg 07/25/2023 12:18 PM [facility] MCHC 32.4 31.7 - 36.3 g/dL 07/25/2023 12:18 PM [facility] RDW-CV 15.2(H) 11.3 - 14.8 % 07/25/2023 12:18 PM [facility] Platelet Count 326 150 - 420 x10E9/L 07/25/2023 12:18 PM [facility] MPV 9.0 7.8 - 11.4 fL 07/25/2023 12:18 PM [facility] Neutrophil % 65.2 41.0 - 74.0 % 07/25/2023 12:18 PM [facility] Lymphocyte % 22.7 17.0 - 47.0 % 07/25/2023 12:18 PM [facility] Monocyte % 9.2 3.0 - 11.0 % 07/25/2023 12:18 PM [facility] Eosinophil % 1.6 0.0 - 7.0 % 07/25/2023 12:18 PM [facility] Basophil % 0.8 0.0 - 1.6 % 07/25/2023 12:18 PM [facility] Immature Granulocytes % 0.5 0.0 - 1.0 % 07/25/2023 12:18 PM CDT [facility] Neutrophil Absolute 4.03 1.60 - 7.50 x10E9/L 07/25/2023 12:18 PM CDT [facility] Lymphocyte Absolute 1.40 1.00 - 4.40 x10E9/L 07/25/2023 12:18 PM CDT [facility] Monocyte Absolute 0.57 0.15 - 1.00 x10E9/L 07/25/2023 12:18 PM CDT [facility] Eosinophil Absolute 0.10 0.00 - 0.60 x10E9/L 07/25/2023 12:18 PM CDT [facility] Basophil Absolute 0.05 0.00 - 0.13 x10E9/L 07/25/2023 12:18 PM CDT [facility] Blood BLOOD SPECIMEN / Unknown Lab Venipuncture / Unknown 07/25/2023 11:52 AM CDT 07/25/2023 12:13 PM CDT Meghana White MD LAB - HEMATOLOGY ORD ERABLES [facility] [address] [place] [address], [facility] [phone] * GLUCOSE - POINT OF CARE (AMB) U (07/25/2023 9:53 AM CDT) Glucose WB/POC 91 70 - 115 mg/dL [address] Blood BLOOD SPECIMEN / Unknown 07/25/2023 9:53 AM CDT Meghana White MD LAB - POINT OF CARE ORDERABLES Performing Organization Address [facility]/State/ZIP Co de Phone Number [address], [place] [address], [facility] [phone] * HEMOGLOBIN A1C - POINT OF CARE (AMB) U (07/25/2023 8:43 AM CDT) Hemoglobin A1c POCT 11.7 % [address] BLOOD SPECIMEN / Unknown 07/25/2023 8:43 AM CDT Meghana White MD LAB - POINT OF CARE ORDERABLES [facility] [employer] [address] [facility] [place] [place] [address], [facility] [phone] documented in this encounter Visit Diagnoses Diagnosis Type 1 diabetes mellitus without complication (HCC)- Primary Type I (juvenile type) diabetes mellitus without mention of complication, not stated as uncontrolled documented in this encounter Care Teams Mission Analyst Relationship Specialty Start Date End Date Eduardo López, PABennieC [address] [place] [address] PCP - General Physician Licensed Dispensing Optician 07/25/23 documented as of this encounter
--- OUTSIDE RECORDS SUMMARY | 2024-04-04 01:20 | XMS_ITS | Encounter Summary ---
Author Organization [facility] Address [address] [place] [address] Care Team Providers Care Figure Model Name Role Phone Eduardo López PA-C Primary Care Provider [phone] Reason for Visit * Reason Onset Date Comments Medication Issue 11/16/2023 Encounter Details Date Type Department Care Team (Late st Contact Info) Description 11/16/2023 Telephone [facility] End[facility] [address] [facility], [place] [address] Meghana White MD [address] [place] [address] [place] [address] Medication Issue Social History Tobacco Use Types Packs/Day Years [...] Telephone Encounter - Lisa Goel LPN - 11/16/2023 2:18 PM CDT Pharmacy states Relion Pen Needle 35g/4mm is no longer covered under the patients insurance. Patients insurance covers BD products. Pharmacy is asking for a new prescription. 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 - Endocrinology [address] [facility], [place] [address] Hilario Traore MD [address] [place] [address] documented as of this encounter Visit Diagnoses Not on filedocumented in this encounter Care Teams Figure Model Relationship Specialty Start Date End Date Eduardo López PA-C [address] [place] [address] PCP - General Physician Management Trainee Program Stores 07/25/23 documented as of this encounter
--- OUTSIDE RECORDS SUMMARY | 2024-04-04 01:20 | XMS_ITS | Encounter Summary ---
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, [place] [address] Hilario Traore MD [address] [place] [address] documented as of this encounter Visit Diagnoses Not on filedocumented in this encounter Care Teams Manufacturing Baker Relationship Specialty Start Date End Date Eduardo López PA-C [address] [place] [address] PCP - General Physician Telegraph Messenger 07/25/23 documented as of this encounter
--- OUTSIDE RECORDS SUMMARY | 2024-04-04 01:20 | XMS_ITS | Encounter Summary ---
Author Organization [facility] Address [address] [place] [address] Care Team Providers Care Leisure Studies Professor Name Role Phone Eduardo López PA-C Primary Care Provider Encounter Details Date Type Department Care Team (Late st Contact Info) Description 01/02/2024 8:00 AM CDT Office Visit [facility] - Endocrinology [address] [facility], [place] [address] Hilario Traore MD [address] [place] [address] Type 1 diabetes mellitus without complication (HCC) [...] Pulse 79 01/02/2024 8:16 AM CDT Temperature - - Respiratory Rate - - Oxygen Saturation 96% 01/02/2024 8:16 AM CDT Inhaled Oxygen Concentration - - Weight - - Height - - Body Mass Index - - documented in this encounter Functional Status Functional [...] this encounter Patient Instructions * Patient Instructions* Antonio Hendrix MD - 01/02/2024 9:15 AM CDT Changes crabs ratio from 1:30 --->1:35g Try to give bolus before eating and try to avoid overriding the pump Take Lantus 9U in case of pump malfunction documented in this encounter Progress Notes * Antonio Hendrix MD - 01/02/2024 7:54 AM CDT [facility] Endocrinology History & Physical Patient Name: Himanshu Damon PCP: Eduardo López PA-C Date of Service: 01/02/2024 Reason for visit: Type 1 DM HPI: Himanshu Damon is a 18 year old female, with PMH below, who presents to the [facility] endocrine clinic today for T1DM Diabetes was diagnosed 06/2023 when presented with DKA Antibodies: PATRICIA 51.9, C-peptide 0.7 Diabetes complication Macrovascular: History of TIA/CVA: No, CAD: No, PAD: No, CKD: No. Microvascular: Albuminuria :No, On ACEi/ARB inhibitor: No., Neuropathy:No, Retinopathy:No Urine Albumin/Cr: <9 (07/25/23) LDL: 133 TSH: 0.760 Last HBA1C: 6.9 % (11/17/23) Current diabetes treatment regimen is as follows: Mobi with G6 since July 2023 Medication compliance:Good Family Hx: maternal aunt has Lupus Home glucose monitoring: Dexcom G6 Hypoglycemia :No, has hypoglycemic awareness: Yes. Feels tired, shaky, dizzy when Blood glucose drops to 80s. Tandem Pump data Sep - Jan 21, 2024 Avg readin CGM use: 100% GMI: 7.1% Coefficient variation: 27% >250: 4.6% 181 -250: 20% In range: 76% Low: 0.4% Pump settings: Basal rate: 0.450U/hr ICR: 1:30 ISF: 1:10 Target: 110 Insulin duration 5hr Avg TDD: 16.09U (Basal 12.14U + Bolus 3.95U) Cartilage change: 3.2 days On interpretation of pump data, patient reports calculating amount of insulin for carbs by herself and takes less amount than calculated instead of entering crabs itself as she is worried about hypoglycemia. Patient is taking manual bolus and overriding pump correction most of the time to prevent hypoglycemia. 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 All: Allergies Allergen Reactions Cyclobenzaprine Nausea and/or Vomiting Kiwi Extract Swelling Tongue swells with blisters Goldonna Flavor Swelling Tongue swelling and blisters Pineapple Swelling and Unknown FamHx: No family history on file. SocHx: Social History Tobacco Use Smoking status: Passive Smoke Exposure - Never Smoker Smokeless tobacco: Never Substance Use Topics Alcohol use: No Review of Systems: As per HPI Physical Exam: There were no vitals taken for this visit. General appearance: alert, cooperative, no distress, appears stated age Thyroid: thyroid is normal in size without nodules or tenderness. Lungs: clear to auscultation bilaterally Heart: regular rate and rhythm, Extremities: extremities normal, atraumatic Diabetic Foot exam: Sensation intact on monofilament test except on left 5th metatarsal head, dorsalis pedis pulse intact in B/L foot Laboratory Data: Recent Labs Component Name 11/17/23 0856 07/25/23 0843 HGBA1C 6.9 11.7 Recent Labs Component Name 07/25/23 1152 TSH 0.760 No results for input(s): MICROALBCREA in the last 85565 hours. Recent Labs Component Name 11/17/23 0856 07/25/23 0843 HGBA1C 6.9 11.7 Recent Labs Component Name 07/25/23 1152 POTASSIUM 3.8 CO2 27 BUN 20 CREATININE 0.48* GLUCOSE 106 CALCIUM 9.3 Recent Labs Component Name 07/25/23 1152 CHOL 250* TRIG 53 HDL 106 LDLCALC 133* Assessment: # Type 1 DM: Dx 07/18, Tandem Mobi/G6 since August 17 Glycemic control adequate HbA1c: 6.9 % (11/17/23) Complains of hypoglycemia on/off and feels symptoms of hypoglycemia when blood glucose is in 80-90s. Feels dizzy, shaky and irritable Tandem Pump data Dec 18 - Jan 21, 2024 Avg readin CGM use: 100% GMI: 7.1% Coefficient variation: 27% >250: 4.6% 181 -250: 20% In range: 76% Low: 0.4% Pump settings: Basal rate: 0.450U/hr ICR: 1:30 ISF: 1:10 Target: 110 Insulin duration 5hr Avg TDD: 16.09U (Basal 12.14U + Bolus 3.95U) Cartilage change: 3.2 days On interpretation of pump data, patient reports calculating amount of insulin for carbs by herself and takes less amount than calculated instead of entering crabs itself as she is worried about hypoglycemia. Patient is taking manual bolus and overriding pump correction most of the time to prevent hypoglycemia. Will plan to be less aggressive for crabs ratio and will advise patient enter carbs andavoid pump override. Plan: Changed ICR from 1:30--->1:35g Try to take bolus before eating Patient is advised to wait for about 2-3 hours before giving manual bolus Prescribed Gvoke Patient has back-up Lantus in case of pump malfunction Patient seen and discussed with Dr. León Hendrix MD Endocrinology, Diabetes & Metabolism Associated attestation - Hilario Traore MD - 01/02/2024 8:01 PM CDT ATTESTATION: This visit was conducted with the assistance of a resident fellow physician. I personally performedthe history and physical and counseled the patient on findings and plan. I have reviewed the note and made edits as appropriate prior to signing. I was present and performed the entirety of the procedure(s). Hilario Traore MD Endocrinology, Diabetes & Metabolism documented in this encounter Plan of Treatment Upcoming Encounters Date Type Department Care Team (Late st Contact Info) Description 04/09/2024 8:40 AM RESPIRATORY THERAPY MANAGER Office Visit [facility] - Endocrinology [address] [facility] [place] [address] Hilario Traore MD [address] [place] [address] documented as of this encounter Visit Diagnoses Diagnosis Type 1 diabetes mellitus without complication (HCC)- Primary Type I (juvenile type) diabetes mellitus without mention of complication, not stated as uncontrolled documented in this encounter Care Teams Leisure Studies Professor Relationship Specialty Start Date End Date Eduardo López PA-C [address] [place] [address] PCP - General Physician Administrative Aide 07/25/23 documented as of this encounter
--- OUTSIDE RECORDS SUMMARY | 2024-04-04 01:20 | XMS_ITS | Encounter Summary ---
Author Organization [facility] Address [address] [place] [address] Care Team Providers Care Appliquer Zigzag Name Role Phone Eduardo López PA-C Primary Care Provider Reason for Visit * Reason Onset Date Comments Medication Prior Auth Request 08/09/2023 Encounter Details Date Type Department Care Team (Late st Contact Info) Description 08/09/2023 Telephone [facility] Endocrinology [address] [place] [address], [place] [address] Meghana White MD [address] [place] [address] [place] [address] Medication Prior Auth Request Social [...] encounter Miscellaneous Notes * Telephone Encounter - Jami Marquez V RN - 08/09/2023 9:52 AM CDT Insurance requires prior auth for Baqsimi Two. Prior auth request submitted on line at [employer]. Office notes submitted with request Yes. Waiting for insurance response. Cover My Meds wolf: [id number] documented in this encounter Plan of Treatment Upcoming Encounters Date Type Department Care Team (Late st Contact Info) Description 04/09/2024 8:40 AM AFTER SCHOOL COUNSELOR Office Visit [facility] - Endocrinology [address] [facility] [place] [address] Hilario Traore MD [address] [place] [address] documented as of this encounter Visit Diagnoses Not on filedocumented in this encounter Care Teams Appliquer Zigzag Relationship Specialty Start Date End Date Eduardo López PA-C [address] [facility] [place] [address] PCP - General Physician Mophead Trimmer And Wrapper 07/25/23 documented as of this encounter
--- OUTSIDE RECORDS SUMMARY | 2024-04-04 01:20 | XMS_ITS | Encounter Summary ---
Author Organization [facility] Address [address] [place] [address] Care Team Providers Care Oiler Bander Name Role Phone Marcella Jones MD Primary Care Provider [phone] Encounter Details Date Type Department Care Team (Late st Contact Info) Description 04/04/2019 1:10 PM SCHEDULING REPRESENTATIVE - 04/04/2019 11:59 PM [facility] Hospital Encounter [facility] Pediatrics - Radiology [address] [place] [address] Mark Cardona MD [address] [address] Discharge Disposition: Home or Self [...] daily 02/20/2019 documented as of this encounter Plan of Treatment Upcoming Encounters Date Type Department Care Team (Late st Contact Info) Description 04/09/2024 8:40 AM SCHEDULING REPRESENTATIVE Office Visit [facility] - Endocrinology [facility] [facility] [place] [address] Hilario Traore MD [address] [place] [address] documented as of this encounter Procedures Procedure Name Priority Date/Time Associated Diagnosis Comments XR KNEE RIGHT 4VW OR MORE Routine 04/04/2019 1:15 PM SCHEDULING REPRESENTATIVE Right knee pain, unspecified chronicity documented in this encounter Results * XR KNEE RIGHT 4VW OR MORE (04/04/2019 1:15 PM SCHEDULING REPRESENTATIVE) Anatomical Region Laterality Modality Lower Extremity Radiographic Zhane ging 04/04/2019 1:15 PM SCHEDULING REPRESENTATIVE Impressions 04/04/2019 1:16 PM SCHEDULING REPRESENTATIVE Normal views of the right knee Reading Radiologist: Cameron Lino MD on 04/04/2019 at 1:16 PM Narrative 04/04/2019 1:16 PM SCHEDULING REPRESENTATIVE INDICATION: Right knee pain COMPARISON: None available. [...] Diagnoses Diagnosis Right knee pain, unspecified chronicity documented in this encounter Care Teams Oiler Bander Relationship Specialty Start Date End Date Marcella Jones MD [address] [address] PCP - General Pediatrics 03/29/19 07/24/23 documented as of this encounter
--- OUTSIDE RECORDS SUMMARY | 2024-04-04 01:20 | XMS_ITS | Encounter Summary ---
Author Organization [facility] Address [address] [place] [address] Care Team Providers Care Cloth Desizing Range Operator Chief Name Role Phone Eduardo López PA-C Primary Care Provider Encounter Details Date Type Department Care Team (Late st Contact Info) Description 11/17/2023 9:00 AM CDT Office Visit [facility] - Endocrinology [address] [place] [address], [place] [address] Meghana White MD [address] [place] [address] [place] [address] Type 1 diabetes mellitus without [...] Sign Reading Time Taken Comments Blood Pressure 116/70 11/17/2023 8:45 AM CDT Pulse 89 11/17/2023 8:45 AM CDT Temperature - - Respiratory Rate - - Oxygen Saturation 96% 11/17/2023 8:45 AM CDT Inhaled Oxygen Concentration - - Weight 60.3 kg (133 lb) 11/17/2023 8:45 AM CDT Height - - Body Mass Index 22.83 07/25/2023 8:28 AM CDT documented in this [...] * Patient Instructions* Meghana White MD - 11/17/2023 9:39 AM CDT Thank you for visiting [facility] Endocrinology. We appreciate your confidence in allowing us to participate in your health care. You may receive a survey about your visit with us today. Making our patients happy is our mission. Please tell us if we made the right impression on you- and how we can serve you better. APPOINTMENTS: [phone] or you can send a [employer] message. Normal business hours are from 8:00 am to 4:30 pm Monday through Monday. Fax# sh [phone] REFILL REQUESTS: contact your pharmacy who will reach out to us. If you have changes to your prescription, you will need to contact us directly at [phone] or send your doctor a [employer] message. We request that all prescription refills be requested during regular office phone hours. If your prescription requires a prior authorization, it may take several days for us to get approval from [employer] company before we can refill your prescription. Please do not wait until you are completely out before contacting us. MEDICAL EMERGENCY: Please call 911 or go to the nearest Emergency Room. After hours urgent calls that cannot wait until phone lines are open on the next business day are given to the Business Practices Supervisor physician container finishing inspector. Please call [phone] and identify yourself as a patient in our practice needing to speak to Business Practices Supervisor. The dump motor operator will contact the physician container finishing inspector. You can generally expect a return call within 30 minutes. On weekends, physicians are seeing hospitalized patients and there may be a longer wait. Test and laboratory results: Our practice typically reports lab and test results through letters orMyChart. Please allow 10 days from when your tests are completed to receive the results in the mail. Labs performed outside of [facility] facility, [facility] or [facility] may delay the results getting to us. Please contact the lab and request that they are faxed to us at [phone] IF GOING TO [facility] or [facility]- TAKE LAB ORDER WITH YOU or they may turn you away [facility]'s missed appointment policy is: Patients with 3 consecutively missed appointments OR 3 missed appointments in a 12 month period will no longer be seen by Endocrinology. They will be asked to seek consultation outside of [facility]. A missed appointment is defined as: Arriving to a scheduled appointment too late to be seen (Patients who arrive to clinic later than their scheduled appointment time may not be seen) Not showing up or calling 24-48 hours prior to an appointment An appointment cancelled less than 24 hours in advance ADDRESS: [facility], [address] [place] [address], [address]nd [place] [address] Website: [email or web address] for additional information about [facility] and an interactive health encyclopedia. Set your sleep mode end 30 min before you wake up See us back in [facility] clinic for further pump adjustment after data sharing issue resolves documented in this encounter Progress Notes * Meghana White MD - 11/17/2023 9:00 AM CDT [facility] Endocrine Patient Note Date of Service- 11/17/2023 Chief Complaint or Purpose for Referral: T1DM History of Present Illness: Himanshu Damon is a 18 year old female, with PMH below, who presents to the [facility] endocrine clinic today for T1DM (low C peptide, positive PATRICIA) Interval history Using Carina with G6, T connect only available for August data, per [employer] 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 and fancy needleworker high glucose Good at entering carbs Last visit /initial history T1DM dx 07/18 when presented with DKA, on insulin since. JENN 07/25/23, required TDD 70U then went into honeymoon with TDD 20u in August (L 12, ICR 15) Now on tendem pump with cgm Mobi/G6 since August 17 Past Medical History: Diagnosis Date Brown recluse spider bite 12/15/13 R leg, hospitalized 12/20- Medical history reviewed with no changes previously healthy with no previous hospitalizations Past Surgical History: Procedure Laterality Date NEGATIVE SURGICAL HISTORY Tympanostomy Bilateral ROS unremarkable otherwise Current Outpatient Medications Medication Sig acetaminophen (TYLENOL) 500 MG tablet Take 500 mg by mouth every 4 hours as needed for Pain. Maximum allowable Acetaminophen amount = 4 Grams (4000 mg) / 24 hours. Acetone, Urine, Test (Ketone Test) STRP 1 Each by In Vitro route as needed blood glucose test strip Use 1 (one) strip as instructed as needed Continuous Glucose Sensor (Dexcom G6 Sensor) MISC Use 1 Each every 10 days Continuous Glucose Sensor (FreeStyle Louis 3 Sensor) MISC APPLY TO THE BACK OF THE ARM EVERY 14 DAYS Continuous Glucose Transmitter (Dexcom G6 Transmitter) MISC Use 1 Each Every 90 days etonogestrel (Nexplanon) 68 MG implant Inject 1 implant by subcutaneous route. Glucagon (Baqsimi Two Pack) 3 MG/DOSE POWD [place] 3 mg into the nose as directed ibuprofen (MOTRIN) 200 MG tablet Take 200 mg by mouth every 6 hours as needed for Pain. insulin lispro (HumaLOG KwikPen) 100 UNIT/ML pen Inject 8 (eight) Units to 13 (thirteen) Units subcutaneously 3 times daily before meals 8 units with 50-60 gm carb of meals, and add 3 units if glucose over 200, add 5 units if over 300, daily max 50 units Lantus SoloStar pen Inject 35 (thirty five) Units subcutaneously every 24 hours OneTouch Verio test strip 1 STRIP NEEDED USE INSTRUCTED ReliOn Pen [place] 32G X 4 MM MISC Inject 1 Each subcutaneously 4 times daily SPRINTEC 28 0.25-35 MG-MCG tablet Take 1 tablet by mouth once daily No current facility-administered medications for this visit. Physical Exam: Constitutional: BP 116/70 Pulse 89 Wt 60.3 kg (133 lb) SpO2 96% General appearance alert, cooperative, no distress, appears stated age NECK Lungs Heart Abdomen Extremities Pulses Neuro aaox4 Data: Cgm pump data download 09/02-09/16/23 TIR 87 11% high, 1.5% very high, 0.2% low and very low, avg 140 100% control IQ TDD 22.68 Basal 46% 10.47 Bolus 54% Avg carb 184g daily, manual bolus 73% Assessment and plan : Diagnoses and all orders for this visit: Type 1 diabetes mellitus without complication (HCC) - HEMOGLOBIN A1C - POINT OF CARE (AMB) U # T1DM, A1C at goal Dx 07/18, Tandem Mobi/G6 since August 17 Glycemic control adequate Ask her to end sleep mode 30min before waking up to help with her yolande phenomena Current setting of ICR 18, ISF 70 appropriate based on her TDD, will not further intensity unless we are able to download her most recent CGM/Pump use WE have contacted Tandem for trouble shooting of data upload problem Return to next Tandem clinic in dec Can see me back after data sharing issues resolve Meghana White MD [facility] division of endocrinology, diabetes and metabolism 11/17/2023 documented in this encounter Plan of Treatment Upcoming Encounters Date Type Department Care Team (Late st Contact Info) Description 04/09/2024 8:40 AM PAINTER SKI EDGE Office Visit [facility] - Endocrinology [address] [place] [address], [place] [address] Hilario Traore MD [address] [place] [address] documented as of this encounter Procedures Procedure Name Priority Date/Time Associated Diagnosis Comments HEMOGLOBIN A1C - POINT OF CARE (AMB) U Routine 11/17/2023 8:56 AM CDT Type 1 diabetes mellitus without complication (HCC) documented in this encounter Results * HEMOGLOBIN A1C - POINT OF CARE (AMB) [facility] (11/17/2023 8:56 AM CDT) Hemoglobin A1c POCT 6.9 % [address] BLOOD SPECIMEN / Unknown 11/17/2023 8:56 AM CDT Meghana White MD LAB - POINT OF CARE ORDERABLES [place] [id number] [facility], [place] [address], [facility] [phone] documented in this encounter Visit Diagnoses Diagnosis Type 1 diabetes mellitus without complication (HCC)- Primary Type I (juvenile type) diabetes mellitus without mention of complication, not stated as uncontrolled documented in this encounter Care Teams Cloth Desizing Range Operator Chief Relationship Specialty Start Date End Date Eduardo López, PABennieC [address] [place] [address] PCP - General Physician Credentialing Specialist 07/25/23 documented as of this encounter
--- OUTSIDE RECORDS SUMMARY | 2024-04-04 01:20 | XMS_ITS | Encounter Summary ---
Author Organization [facility] Health Address [address] [place] [place] [address] Care Team Providers Care Fine Wire Drawer Name Role Phone Eduardo López PA-C Primary Care Provider [phone] Encounter Details Date Type Department Care Team (Latest Contact Info) Description 07/25/2023 Travel Social History Tobacco Use Types Packs/Day [...] st Contact Info) Description 04/09/2024 8:40 AM PRECISION LENS GRINDER Office Visit [facility] End[facility]inology [address] [facility] [place] [address] Hilario Traore MD [address] [place] [address] documented as of this encounter Visit Diagnoses Not on filedocumented in this encounter Care Teams Fine Wire Drawer Relationship Specialty Start Date End Date Eduardo López PA-C [address] [place] [address] PCP - General Physician Macadam Raker 07/25/23 documented as of this encounter
--- OUTSIDE RECORDS SUMMARY | 2024-04-04 01:21 | XMS_ITS | Clinical Summary ---
Author Organization [facility] Address [address] [place] [address]. [place] [address] [place] [address] Care Team Providers Care Germ Drier Name Role Phone Eduardo López Primary Care Provider [phone] Allergies Active Allergy Reactions Criticality Noted Date Comments Cyclobenzaprine Nausea and Vomiting 02/11/2023 Kiwi Fruit Swelling High 07/18/2023 Tongue swells with blisters Grano Flavoring Agent (Non-Screening) Swelling High 07/18/2023 Tongue swelling and blisters Pineapple Extract Unknown 07/18/2023 Medications melatonin 5 MG tablet Take 2 tablets (10 mg total) by mouth nightly. Active Glucose Blood test stripIndications :Type 1 diabetes mellitus without complication (CMS/HCC HHS/HCC) 1 strip by Other route as needed. Use as instructed 100 strip 07/18/19 24 Active NOVOLOG FLEXPEN RELION 100 UNIT/ML injection (PEN)Indications :Type 1 diabetes mellitus without complication (CMS/HCC HHS/HCC) Inject 10 Units into the skin see administration instructions. 10 units each meal Sliding scale 12 mL 1 07/18/19 24 Active Insulin Pen Needle (PEN NEEDLES) 32G X 4 MM MiscIndications: Type 1 diabetes mellitus without complication (CMS/HCC HHS/HCC) Use to inject insulin once daily in the morning. 100 each 1 07/19/19 24 Active Continuous Glucose Sensor (FREESTYLE ELZBIETA 3 SENSOR) MiscIndications: Type 2 diabetes mellitus without complication, with long-term current use of insulin (CMS/HCC HHS/HCC) Apply to the back of the arm every 14 days 6 each 2 07/21/19 24 Active naproxen (NAPROSYN) 500 MG tablet Take 1 tablet (500 mg total) by mouth 2 (two) times daily with meals. 60 tablet 01/04/20 Active methocarbamol (ROBAXIN) 750 MG Tab Take 1 tablet (750 mg total) by mouth every 4 (four) hours. 180 tablet 01/04/20 Active Active Problems Problem Noted Date Diagnosed Date Moderate episode of recurren t major depressive disorder ([facility]) 07/24/2023 Anxiety 07/24/2023 Type 1 diabetes mellitus ([facility]) 07/23 Jaundice 12/25/2013 Overview (07/24/2023): Last Assessment & Plan: Assessment: Himanshu is a 8yo F with [...] in hgb requiring transfusion. Plan: -Admit to [facility] -MTVF D5/HNS @ 75ml/hr -Benadryl PRN itching -Regular diet -H/H q8h -Vitals q8h Encounters Date Type Department Care Team Description 01/04/2024 1:52 PM CDT - 01/04/2024 4:47 PM CDT Emergency [facility] Emergency Room [address] [place] [address] Jess Lockhart MD Back Pain; Hip Pain Discharge Disposition: Home or Self Care (Routine Discharge) 01/04/2024 Travel from Last 3 Months Immunizations Name Administration Dates Next Due Dtap 04/26/2005, 4,2003,2003 HPV GARDASIL 9-VALENT 09/22/2017,03/21/2017 Hepatitis A (Generic) 11/03/2008,12/25/2006 Hepatitis B Pediatric 03/05/2004,2003,07/26 Hib (Generic) 04/26/2005, 4,2003,2003 Influenza Adult (Generic) 03/21/2017 MMR 11/05/2008, 9,04/26/2005,2004 Menactra 2019,11/07/2014 Meningcoccal Group B (Trumen ba)(aka Meningitis) 2019 Pneumococcal (Prevnar 7) 09/23/2004,02/24,2003,2003 Polio IPV (Ipol) 03/05/2004,2003, 4 Tdap (Adacel) 11/07/2014 Varicella Vaccine 03/06/2008,09/23/2004 Family History Medical History Relation Comments No Known Problems Father No Known Problems Mother No Known Problems Sister Relation Status Comments Father Mother Alive Sister Social History Tobacco Use Types Packs/Day Years Used Date Smoking Tobacco: Former Cigarettes Smokeless Tobacco: Never Tobacco Cessation:Counseling Given: Not Answered Alcohol Use Standard Drinks/Week Comments Yes 0 (1 standard drink = 0.6 oz pur e alcohol) pt sober 105 days PHQ-2 Answer Date Recorded Patient Health Questionnaire-2 Score 0 07/18/2023 Comments No Sex and Gender Information Value Date Recorded Sex Assigned at Not on file Legal Sex Female 5:13 PM CDT Gender Identity Not on file Sexual Orientation Not on file Last Filed Vital Signs Vital Sign Reading Time Taken Comments Blood Pressure 104/82 01/04/2024 4:47 PM CDT Pulse 72 01/04/2024 4:47 PM CDT Temperature 36.7 ??C (98 ??F) 01/04/2024 4:47 PM CDT Respiratory Rate 16 01/04/2024 4:47 PM CDT Oxygen Saturation 98% 01/04/2024 4:47 PM CDT Inhaled Oxygen Concentration - - Weight 60 kg (132 lb 4.4 oz) 01/04/2024 1:55 PM CDT Height 162.6 cm (5' 4 ) 01/04/2024 1:55 PM CDT Body Mass Index 22.71 01/04/2024 1:55 PM CDT Plan of Treatment Health Maintenance Due Date Last Done Comments Kidney Health Evaluation 2003 Annual Physical 08/20/2006 Pneumococcal Vaccine: Pediatrics (0 to 5 Years) and At-Risk Patients (6 to 64 Years) (1 of 2 - PCV) 08/20/2009 09/23/2004, 03/05/2004, 2003, Additional history exists Diabetes: Retinopathy Eye Exam 08/20/2021 Hepatitis C 08/20/2021 COVID-19 Vaccine ( season) 2023 Influenza Adult (#1) 2023 03/21/2017 Hemoglobin A1C 02/17/2024 11/17/2023, 06/27, 07/10/2023 Lipid Panel 07/24/2024 07/25/2023 DTaP, Tdap and Td Vaccines (6 - Td or Tdap) 11/07/2024 11/07/2014, 04/26/2005, 03/05/2004, Additional history exists Hepatitis B Vaccines Completed 03/05/2004, 2003, 2003 HPV Vaccines Completed 09/22/2017, 03/21/2017 Meningococcal Vaccine Completed 2019, 015 RSV Immunizations Under 20 Months Aged Out No longer eligible based on patient's age to complete this topic Procedures Procedure Name Priority Date/Time Associated Diagnosis Comments CT ABD+PEL WO CON STAT 01/04/2024 4:0 7 PM CDT TEST URINE STAT 01/04/2024 3:16 PM CDT URINALYSIS, AUTO, COMPLETE STAT 01/04/2024 3:16 PM CDT BASIC METABOLIC PANEL STAT 01/04/2024 3:13 PM CDT CBC W/DIFF AUTOMATED STAT 01/04/2024 3:13 PM CDT OUTSIDE LAB (SCAN ORDER) Routine 07/10/2023 from Last 3 Months or Most Recently Relevant to Health Maintenance Results * CT ABD+PEL WO CON (01/04/2024 4:07 PM CDT) Anatomical Region Laterality Modality Abdomen Computed Tomogra phy 01/04/2024 4:16 PM CDT Impressions 01/04/2024 4:19 PM CDT IMPRESSION: No definite acute CT findings within the abdomen or pelvis. Referred By: ?? Interpreted By: Óscar Gomez MD, 01/04/2024 4:16 PM Narrative 01/04/2024 4:19 PM CDT [facility] [address] [facility] [place] [address] EXAMINATION: CT ABD+PEL WO CON, 01/04/2024 4:16 PM TECHNIQUE: Computed tomographic images of the abdomen and pelvis were obtained without intravenous contrast. Additional coronal and sagittal reformatted images were generated. A dose lowering technique was used for this procedure, which may include, but is not limited to, dose reduction technique, automated exposure control, the use of iterative reconstruction, and ALARA (As Low As Reasonably Achievable) / Image Gently techniques. HISTORY: Lower abdominal, lower mid back pain which radiates to the left COMPARISON: None available FINDINGS: Lung bases are well-aerated. ??Heart size is normal. ABDOMEN: The liver is normal in size and contour. ??Gallbladder is negative. ??There is no bile duct dilation. ??No peripancreatic inflammatory change. ??The pancreas is not well evaluated without intravenous contrast. ??The spleen is normal in size. ??No adrenal mass. ??No perinephric abnormality. ??No hydronephrosis. ??No nephrolithiasis. ??The caliber of the abdominal aorta is normal. ??No retroperitoneal adenopathy. PELVIS: The appendix is normal. ??There is no bowel dilation or wall thickening. ??No free fluid within the abdomen or pelvis. ??No free intraperitoneal air. ??Urinary bladder is grossly normal. ??No pelvic mass or adenopathy. ??No acute fracture nor destructive process of the visualized osseous structures. Procedure Note Óscar Gomez MD - 01/04/2024 [facility] [address] [place] [address] EXAMINATION: CT ABD+PEL WO CON, 01/04/2024 4:16 PM TECHNIQUE: Computed tomographic images of the abdomen and pelvis wereobtained without intravenous contrast. Additional coronal and sagittalreformatted images were generated. A dose lowering technique was used forthis procedure, which may include, but is not limited to, dose reductiontechnique, automated exposure control, the use of iterativereconstruction, and ALARA (As Low As Reasonably Achievable) / Image Gentlytechniques. HISTORY: Lower abdominal, lower mid back pain which radiates to the left COMPARISON: None available FINDINGS: Lung bases are well-aerated. Heart size is normal. ABDOMEN: The liver is normal in size and contour. Gallbladder isnegative. There is no bile duct dilation. No peripancreatic inflammatorychange. The pancreas is not well evaluated without intravenous contrast.The spleen is normal in size. No adrenal mass. No perinephricabnormality. No hydronephrosis. No nephrolithiasis. The caliber of theabdominal aorta is normal. No retroperitoneal adenopathy. PELVIS: The appendix is normal. There is no bowel dilation or wallthickening. No free fluid within the abdomen or pelvis. No freeintraperitoneal air. Urinary bladder is grossly normal. No pelvic massor adenopathy. No acute fracture nor destructive process of thevisualized osseous structures. IMPRESSION: No definite acute CT findings within the abdomen or pelvis. Referred By: Interpreted By: Óscar Gomez MD, 01/04/2024 4:16 PM us Jess Lockhart MD CT Final Result * TEST URINE (01/04/2024 3:16 PM CDT) URINE HCG TEST NEGATIVE NEGATIVE 01/04/2024 3:31 PM CDT [facility] Comment: VERY DILUTE URINE SPECIMENS MAY NOT CONTAIN COOKER CLEANER LEVELS OF HCG. IF IS STILL SUSPECTED, A SERUM HCG TEST IS RECOMMENDED. URINE SPECIMEN FROM URETHRA / Unknown 01/04/2024 3:16 PM CDT Jess Lockhart MD URINE ORDERABLES Final Result [facility] [address] [place] [address], [place] [phone] * Urinalysis, Auto, Complete (01/04/2024 3:16 PM CDT) COLOR (U) YELLOW 01/04/2024 3:43 PM CDT [facility] TRANSPARENCY CLEAR 01/04/2024 3:43 PM CDT [facility] SPECIFIC GRAVITY (U) 1.020 1.000 - 1.030 01/04/2024 3:43 PM CDT [facility] U PH 7.0 5.0 - 9.0 01/04/2024 3:43 PM CDT [facility] LEUKOCYTES (U) NEGATIVE NEGATIVE 01/04/2024 3:43 PM CDT [facility] NITRITES NEGATIVE NEGATIVE 01/04/2024 3:43 PM CDT [facility] PROTEIN RANDOM (U) NEGATIVE NEGATIVE 01/04/2024 3:43 PM CDT [facility] GLUCOSE (U) NEGATIVE NEGATIVE 01/04/2024 3:43 PM CDT [facility] KETONES MG/DL (U) NEGATIVE NEGATIVE 01/04/2024 3:43 PM CDT [facility] BILIRUBIN (U) NEGATIVE NEGATIVE 01/04/2024 3:43 PM CDT [facility] BLOOD (U) NEGATIVE NEGATIVE 01/04/2024 3:43 PM CDT [facility] WBC/HPF NONE SEEN 0 - 5 /HPF 01/04/2024 3:43 PM CDT [facility] RBC/HPF NONE SEEN 0 - 5 /HPF 01/04/2024 3:43 PM CDT [facility] EPI/HPF FEW /HPF 01/04/2024 3:43 PM CDT [facility] URINE SPECIMEN OBTAINED BY CLEAN CATCH PROCEDURE / Unknown 01/04/2024 3:16 PM CDT us Jess Lockhart MD URINE ORDERABLES Final Result [facility] [address] [place] [address], [place] [phone] * (ABNORMAL) BASIC METABOLIC PANEL (01/04/2024 3:13 PM CDT) GLUCOSE 132(H) 70 - 99 MG/DL 01/04/2024 3:45 PM CDT [facility] BUN 11 7 - 18 MG/DL 01/04/2024 3:45 PM CDT [facility] CREATININE S/P/B 0.57 0.55 - 1.02 MG/DL 01/04/2024 3:45 PM CDT [facility] SODIUM S/P/B 139 136 - 145 MMOL/L 01/04/2024 3:45 PM CDT [facility] POTASSIUM S/P/B 4.0 3.5 - 5.1 MMOL/L 01/04/2024 3:45 PM CDT [facility] CHLORIDE S/P/B 102 100 - 108 MMOL/L 01/04/2024 3:45 PM CDT [facility] CO2 26.3 21 - 32 MMOL/L 01/04/2024 3:45 PM CDT [facility] CALCIUM S/P/B 9.7 8.5 - 10.1 MG/DL 01/04/2024 3:45 PM CDT [facility] ANION GAP 10.7 5 - 15 MMOL/L 01/04/2024 3:45 PM CDT [facility] BUN CREATININE RATIO 19.3 6 - 26 01/04/2024 3:45 PM CDT [facility] GFR ESTIMATE >90 >90 ML/MIN/1.7 3 M2 01/04/2024 3:45 PM CDT [facility] Comment: NOTE: eGFR is not calculated for patients <18 years of age. This is an estimated GFR calculation using the new CKD EPI creatinine equation without race and so does not require a correction factor for race. This estimated GFR should not be used for calculating drug doses. 01/04/2024 3:13 PM CDT Jess Lockhart MD LABORATORY Final Result [facility] [address] [place] [address], * (ABNORMAL) CBC W/DIFF AUTOMATED (01/04/2024 3:13 PM CDT) WBC 10.14 4.4 - 11.0 x10'3/uL 01/04/2024 3:19 PM CDT [facility] RBC 4.65 4.50 - 5.10 x10'6/uL 01/04/2024 3:19 PM CDT [facility] HGB 14.3 12.3 - 15.3 G/DL 01/04/2024 3:19 PM CDT [facility] HCT 42.8 35.9 - 44.6 % 01/04/2024 3:19 PM CDT [facility] MCV 92.0 80.0 - 96.0 FL 01/04/2024 3:19 PM CDT [facility] MCH 30.8 25.3 - 30.9 PG 01/04/2024 3:19 PM CDT [facility] MCHC 33.4 31.0 - 34.1 G/DL 01/04/2024 3:19 PM CDT [facility] RDW 13.4 12.4 - 15.1 % 01/04/2024 3:19 PM T [facility] PLT 389(H) 151 - 353 x10'3/uL 01/04/2024 3:19 PM CDT [facility] MPV 8.8(L) 9.6 - 12.0 FL 01/04/2024 3:19 PM T [facility] RBC MORPHOLOGY NORMAL 01/04/2024 3:19 PM T [facility] PLT MORPH. NORMAL 01/04/2024 3:19 PM T [facility] WBC MORPHOLOGY NORMAL 01/04/2024 3:19 PM T [facility] LYMPHOCYTES % 18.5 15.8 - 45.0 % 01/04/2024 3:19 PM T [facility] NEUTROPHILS % 74.8(H) 42.1 - 71.9 % 01/04/2024 3:19 PM T [facility] MONOCYTES % 5.7 5.7 - 12.5 % 01/04/2024 3:19 PM T [facility] EOSINOPHILS 0.3 0.0 - 5.6 % 01/04/2024 3:19 PM T [facility] BASOPHILS 0.4 0.0 - 1.3 % 01/04/2024 3:19 PM T [facility] ABS. NEUTROPHILS 7.58(H) 1.40 - 6.00 x10'3/uL 01/04/2024 3:19 PM T [facility] IMMATURE GRANS % 0.3 0.0 - 0.5 % 01/04/2024 3:19 PM CDT [facility] ABS. LYMPHOCYTES 1.88 0.80 - 4.70 x10'3/uL 01/04/2024 3:19 PM CDT [facility] 01/04/2024 3:13 PM CDT Jess Lockhart MD LABORATORY Final Result [facility] [address] [place] [address], * OUTSIDE LAB (07/10/2023) HGB A1C 13.7 % [facility] 07/10/2023 [facility] Scanned SCANNING Final Resu lt Performing Organization Address City/[facility]/ZIP Co de Phone Number [facility] from Last 3 Months or Most Recently Relevant to Health Maintenance Insurance [employer] Care Teams Germ Drier Relationship Specialty Start Date End Date Eduardo Ló[place] [address] [place] [address] PCP - General Physician [facility] 09/11/23
--- OUTSIDE RECORDS SUMMARY | 2024-04-04 01:21 | XMS_ITS | Encounter Summary ---
Author Organization [facility] Address [address] [place] [address]. [place], [place] [address] [place] [address] Care Team Providers Care Forest Products Gatherer Name Role Phone None, Provider Primary Care Provider Unavaila ble Encounter Details Date Type Department Care Team (Latest Contact Info) Description 03/30/2023 Travel Social History Tobacco Use Types Packs/Day Years Used Date Smoking Tobacco: Every Day Cigarettes Smokeless Tobacco: Never Alcohol Use Standard Drinks/Week Comments Never 0 (1 standard drink = 0.6 oz pur e alcohol) Comments No Sex and Gender Information Value Date Recorded Sex Assigned at Not on file Legal Sex Female 5:13 PM CDT Gender Identity Not on file Sexual Orientation Not on file documented as of this encounter Plan of Treatment Not on file documented as of this encounter Visit Diagnoses Not on filedocumented in this encounter Care Teams Forest Products Gatherer Relationship Specialty Start Date End Date None, ProviderMD PCP - General 11/27/20 07/11/23 documented as of this encounter
--- OUTSIDE RECORDS SUMMARY | 2024-04-04 01:21 | XMS_ITS | Encounter Summary ---
Author Organization [facility] Address [address] [place] [address]. [place], [place] [address] [place] [address] Care Team Providers Care Picker Operator Name Role Phone None, Provider Primary Care Provider Unavaila ble Encounter Details Date Type Department Care Team (Latest Contact Info) Description 02/28/2023 Travel Social History Tobacco Use Types Packs/Day [...] on filedocumented in this encounter Care Teams Picker Operator Relationship Specialty Start Date End Date None, ProviderMD PCP - General 11/27/20 07/11/23 documented as of this encounter
--- OUTSIDE RECORDS SUMMARY | 2024-04-04 01:21 | XMS_ITS | Encounter Summary ---
Author Organization [facility] Address [address] [place] [address]. [place], [place] [address] [place] [address] Care Team Providers Care Breast Splitter Name Role Phone Eduardo López Primary Care Provider [phone] Reason for Referral * Consultation (Routine) - Closed Specialty Diagnoses / Procedures Referred By Contac t Referred To Contact Pharmacist Diagnoses Type 1 diabetes mellitus ([facility]) Eduardo Ló[place] [address] [place] [address] Phone: tel: fax: Adenike Ramirez, PharmD [address] [place] [address] Phone: tel: fax: Referral ID Status Reason Start Date Expiration Date V isits Requested Visits Authorized [id number] Closed Specialty Services 07/24/2023 08/22/2024 1 1 Encounter Details Date Type Department Care Team (Late st Contact Info) Description 07/24/2023 Orders Only [facility] Family & Internal Medicine - [place] [address] [place] [address] Eduardo [place] [address] [place] [address] Social History Tobacco Use Types Packs/Day Years Used Date Smoking Tobacco: Every Day Cigarettes Smokeless Tobacco: Never Alcohol Use Standard Drinks/Week Comments Yes 0 [...] as of this encounter Plan of Treatment Scheduled Referrals Name Type Priority Associated Diagnoses Orde r Schedule Ambulatory Referral to Pharmacist Referral Routine Type 1 diabetes mellitus ([facility]) Ordered: 07/24/2023 documented as of this encounter Visit Diagnoses Diagnosis Type 1 diabetes mellitus ([facility])- Primary Type I (juvenile type) diabetes mellitus without mention of complication, not stated as uncontrolled documented in this encounter Additional Health Concerns Assessment Noted Time PHQ-9 Depression Total Score: 14 024 11:38 AM CDT documented as of this encounter Care Teams Breast Splitter Relationship Specialty Start Date End Date Eduardo Ló[place] [address] [place] [address] PCP - General Physician Apparel Stock Checker Medical 07/12/23 08/14/23 documented as of this encounter
--- OUTSIDE RECORDS SUMMARY | 2024-04-04 01:21 | XMS_ITS | Encounter Summary ---
Author Organization [facility] Address [address] [place] [address]. [place], [place] [id number] [place] [id number] Care Team Providers Care Ammunition Specialist Name Role Phone None, Provider MD Primary Care Provider Unavaila ble Reason for Visit * Reason Comments Eye Problem Encounter Details Date Type Department Care Team (Late st Contact Info) Description 03/12/2023 7:25 AM PLASTIC DIE MAKER APPRENTICE - 03/12/2023 7:44 AM PLASTIC DIE MAKER APPRENTICE Emergency [facility] Emergency Room [id number] [place] [address] [phone] Tay Ward MD [address] [place] [id number] Eye Problem Discharge Disposition: Home or Self Care (Routine Discharge) Social History Tobacco Use Types Packs/Day Years [...] Sign Reading Time Taken Comments Blood Pressure 119/77 03/12/2023 7:30 AM PLASTIC DIE MAKER APPRENTICE Pulse 95 03/12/2023 7:30 AM PLASTIC DIE MAKER APPRENTICE Temperature 36.1 ??C (97 ??F) 03/12/2023 7:30 AM PLASTIC DIE MAKER APPRENTICE Respiratory Rate 20 03/12/2023 7:30 AM PLASTIC DIE MAKER APPRENTICE Oxygen Saturation 100% 03/12/2023 7:30 AM PLASTIC DIE MAKER APPRENTICE Inhaled Oxygen Concentration - - Weight 50.3 kg (111 lb) 03/12/2023 7:30 AM PLASTIC DIE MAKER APPRENTICE Height 162.6 cm (5' 4 ) 03/12/2023 7:30 AM PLASTIC DIE MAKER APPRENTICE Body Mass Index 19.05 03/12/2023 7:30 AM PLASTIC DIE MAKER APPRENTICE documented in this encounter Discharge Instructions * Attachments The following attachments cannot be sent through Care Everywhere. * Cellulitis Around the Eye Discharge Instructions (Indonesian) documented in this encounter Medications at Time of Discharge melatonin 5 MG tablet Take 2 tablets (10 mg total) by mouth nightly. escitalopram 20 MG tablet Take 20 mg by mouth daily. 07/18/2023 hydrOXYzine (ATARAX) 10 MG tablet TAKE 1 TABLET ORALLY THREE TIMES DAILY NEEDED FOR 30 DAYS 07/18/2023 ketorolac (ACULAR) 0.5 % ophthalmic solution INSTILL 1 DROP INTO RIGHT EYE EVERY 6 HOURS NEEDED FOR PAIN 02/09/2023 01/04/2024 sulfamethoxazole- trimethoprim (BACTRIM DS) 800-160 MG tablet Take 1 tablet by mouth 2 (two) times daily for 7 days. 14 tablet 03/12/2023 03/19/2023 trimethoprim-poly myxin b (POLYTRIM) ophthalmic solution Place 1 drop into both eyes every 4 (four) hours for 10 days. 3 mL 03/12/2023 03/22/2023 trimethoprim-poly myxin b (POLYTRIM) ophthalmic solution INSTILL 1 DROP INTO RIGHT EYE EVERY 3 HOURS FOR 7 DAYS WHILE AWAKE . DO NOT EXCEED 6 DOSES IN 24 HOURS 02/09/2023 07/18/2023 documented as of this encounter ED Notes * Tay Ward MD - 03/12/2023 7:42 AM CST Chief Complaint Chief Complaint Patient presents with Eye Problem History of Present Illness This patient is a 17yo female with no pertinent PMH who presents to the ED with right eye discomfort. She is currently receiving treatment for conjunctivitis. She notes a one day history of right emeka-orbital discomfort, swelling, and erythema. The patient has had no fever/chills, retro-orbital discomfort, or vision changes. Medical History ALLERGIES: Review of patient's allergies indicates: Allergen Reactions Flexeril [Cyclobenzaprine] Nausea and Vomiting MEDICATIONS: Prior to Admission medications Medication Sig Start Date End Date Taking? Authorizing Provider sulfamethoxazole-trimethoprim (BACTRIM DS) 800-160 MG tablet Take 1 tablet by mouth 2 (two) times daily for 7 days. 03/12/23 03/19/23 Yes Tay Ward MD trimethoprim-polymyxin b (POLYTRIM) ophthalmic solution Place 1 drop into both eyes every 4 (four) hours for 10 days. 03/12/23 03/22/23 Yes Tay Ward MD escitalopram 20 MG tablet Take 20 mg by mouth daily. Doc [facility] hydrOXYzine (ATARAX) 10 MG tablet TAKE 1 TABLET ORALLY THREE TIMES DAILY NEEDED FOR 30 DAYS Default History Genericprovider ketorolac (ACULAR) 0.5 % ophthalmic solution INSTILL 1 DROP INTO RIGHT EYE EVERY 6 HOURS NEEDED FOR PAIN 02/09/23 Default History Genericprovider melatonin 5 MG tablet Take 10 mg by mouth nightly. Doc [facility] trimethoprim-polymyxin b (POLYTRIM) ophthalmic solution INSTILL 1 DROP INTO RIGHT EYE EVERY 3 HOURSFOR 7 DAYS WHILE AWAKE . DO NOT EXCEED 6 DOSES IN 24 HOURS 02/09/23 Default History Genericprovider PAST MEDICAL HISTORY: Past Medical History: Diagnosis Date Anxiety 2019 Depression 2019 PAST SURGICAL HISTORY: History reviewed. No pertinent surgical history. FAMILY HISTORY: Family History Problem Relation Name Age of Onset No Known Problems Mother No Known Problems Father No Known Problems Sister SOCIAL HISTORY: Social History Tobacco Use Smoking status: Every Day Types: Cigarettes Smokeless tobacco: Never Vaping Use Vaping Use: Every day Substance Use Topics Alcohol use: Never Drug use: Never Review of Systems Review of Systems Constitutional: Negative. HENT: Positive for facial swelling. Eyes: Negative. All other systems reviewed and are negative. Physical Exam Filed Vitals: 03/12/23 0730 BP: 119/77 Pulse: 95 Resp: 20 Temp: 97 ??F (36.1 ??C) TempSrc: Temporal SpO2: 100% Weight: 50.3 kg (111 lb) Height: 1.626 m (5' 4 ) Physical Exam Vitals and nursing note reviewed. Constitutional: Appearance: Normal appearance. She is well-developed. HENT: Head: Normocephalic and atraumatic. Nose: Nose normal. Mouth/Throat: Mouth: Mucous membranes are moist. Eyes: Conjunctiva/sclera: Conjunctivae normal. Pupils: Pupils are equal, round, and reactive to light. Comments: Mild soft tissue swelling, warmth, and erythema to right emeka-orbital soft tissue. Neck: Vascular: No JVD. Trachea: No tracheal deviation. Cardiovascular: Rate and Rhythm: Normal rate and regular rhythm. Pulmonary: Effort: Pulmonary effort is normal. Musculoskeletal: General: Normal range of motion. Cervical back: Normal range of motion and neck supple. Skin: General: Skin is warm and dry. Capillary Refill: Capillary refill takes less than 2 seconds. Neurological: General: No focal deficit present. Mental Status: She is alert and oriented to person, place, and time. Sensory: No sensory deficit. Motor: No weakness. Diagnostic Studies / Procedures ELECTROCARDIOGRAMS: No results found for this visit on 03/12/23. LABORATORY STUDIES: No results found for this visit on 03/12/23. IMAGING STUDIES No orders to display ED Course / Medical Decision Making The patient has a mild right emeka-orbital cellulitis. Plan for treatment with a course of bactrim and continued antibiotic drops. Medical Decision Making Clinical Impression Preseptal cellulitis (Primary) Disposition: Discharge Tay Ward MD 03/14/23 0653 TIC DIE MAKER APPRENTICE * Lexi Ambrosio RN - 03/12/2023 7:32 AM CST 17 year old female in with complaints of bilateral eye discomfort. Patient was treated for pink eyemost recently 1 week ago, patient was seen by the eye doctor within that week and states they told her eyes looked good and were clearing up. Patient noted yesterday morning her eyes were red under her eyes and increased drainage. Patient has been using antibiotic eye drops and benadryl with no relief. TIC DIE MAKER APPRENTICE TIC DIE MAKER APPRENTICE documented in this encounter Plan of Treatment Not on file documented as of this encounter Visit Diagnoses Diagnosis Preseptal cellulitis- Primary Abscess of eyelid documented in this encounter Care Teams Ammunition Specialist Relationship Specialty Start Date End Date None, Provider, PCP - General 11/27/20 07/11/23 documented as of this encounter
--- OUTSIDE RECORDS SUMMARY | 2024-04-04 01:21 | XMS_ITS | Encounter Summary ---
Author Organization [facility] Address [address] [place] [address]. [place], [place] [id number] [place] [id number] Care Team Providers Care Slitter Cut Off Operator Name Role Phone None, Provider Primary Care Provider Unavaila ble Encounter Details Date Type Department Care Team (Latest Contact Info) Description 02/11/2023 Travel Social History Tobacco Use Types Packs/Day Years Used Date Smoking Tobacco: Never Smokeless Tobacco: Never Alcohol Use Standard Drinks/Week [...] on filedocumented in this encounter Care Teams Slitter Cut Off Operator Relationship Specialty Start Date End Date None, ProviderMD PCP - General 11/27/20 07/11/23 documented as of this encounter
--- OUTSIDE RECORDS SUMMARY | 2024-04-04 01:21 | XMS_ITS | Encounter Summary ---
Author Organization [facility] Address [address] [place] [address]. [place], [place] [id number] [place] [id number] Care Team Providers Care Nuclear Fuel Enrichment Technician Name Role Phone None, Provider MD Primary Care Provider Unavaila ble Reason for Visit * Reason Comments Eye Problem Encounter Details Date Type Department Care Team (Late st Contact Info) Description 03/30/2023 4:25 PM ARBITRATOR - 03/30/2023 4:51 PM ARBITRATOR Emergency [facility] Emergency Room [id number] [place] [address] [id number] Tay Ward MD [address] [place] [id number] Eye Problem Discharge Disposition: Home or Self [...] Sign Reading Time Taken Comments Blood Pressure 104/71 03/30/2023 4:25 PM ARBITRATOR Pulse 111 03/30/2023 4:25 PM ARBITRATOR Temperature 36.6 ??C (97.8 ??F) 03/30/2023 4:25 PM CS T Respiratory Rate 20 03/30/2023 4:25 PM ARBITRATOR Oxygen Saturation 99% 03/30/2023 4:25 PM ARBITRATOR Inhaled Oxygen Concentration - - Weight 47.6 kg (105 lb) 03/30/2023 4:25 PM ARBITRATOR Height 162.6 cm (5' 4 ) 03/30/2023 4:25 PM ARBITRATOR Body Mass Index 18.02 03/30/2023 4:25 PM ARBITRATOR documented in this encounter Discharge Instructions * Attachments The following attachments cannot be sent through Care Everywhere. * Conjunctivitis (Pinkeye) Discharge Instructions (Setswana) documented in this encounter Medications at Time of Discharge melatonin 5 MG tablet Take 2 tablets (10 mg total) by mouth nightly. ciprofloxacin (CILOXAN) 0.3 % ophthalmic solution Administer 1 drop, every 2 hours, while awake, for 2 days. Then 1 drop, every 4 hours, while awake, for the next 5 days. 5 mL 03/30/2023 4 escitalopram 20 MG tablet Take 20 mg by mouth daily. 4 hydrOXYzine (ATARAX) 10 MG tablet TAKE 1 TABLET ORALLY THREE TIMES DAILY NEEDED FOR 30 DAYS 4 ketorolac (ACULAR) 0.5 % ophthalmic solution INSTILL 1 DROP INTO RIGHT EYE EVERY 6 HOURS NEEDED FOR PAIN 02/09/2023 4 trimethoprim-patricia ymyxin b (POLYTRIM) ophthalmic solution INSTILL 1 DROP INTO RIGHT EYE EVERY 3 HOURS FOR 7 DAYS WHILE AWAKE . DO NOT EXCEED 6 DOSES IN 24 HOURS 02/09/2023 4 documented as of this encounter ED Notes * Tay Ward MD - 03/30/2023 4:40 PM CST Chief Complaint Chief Complaint Patient presents with Eye Problem History of Present Illness This patient is a 17yo female with no pertinent PMH who presents to the ED for evaluation of conjunctivitis. She reports a several week history of conjunctival injection and discharge. No visual changes. She does not wear contact lenses. Medical History ALLERGIES: Review of patient's allergies indicates: Allergen Reactions Flexeril [Cyclobenzaprine] Nausea and Vomiting MEDICATIONS: Prior to Admission medications Medication Sig Start Date End Date Taking? Authorizing Provider ciprofloxacin (CILOXAN) 0.3 % ophthalmic solution Administer 1 drop, every 2 hours, while awake, for 2 days. Then 1 drop, every 4 hours, while awake, for the next 5 days. 1/4/24 Yes Tay Ward MD escitalopram 20 MG [...] of Systems Review of Systems Constitutional: Negative. Eyes: Positive for discharge and redness. Negative for photophobia and visual disturbance. All other systems reviewed and are negative. Physical Exam Filed Vitals: 03/30/23 1625 BP: 104/71 Pulse: (!) 111 Resp: 20 Temp: 97.8 ??F (36.6 ??C) TempSrc: Temporal SpO2: 99% Weight: 47.6 kg (105 lb) Height: 1.626 m (5' 4 ) Physical Exam Vitals and nursing note reviewed. Constitutional: Appearance: Normal appearance. She is well-developed. HENT: Head: Normocephalic and atraumatic. Nose: Nose normal. Mouth/Throat: Mouth: Mucous membranes are moist. Eyes: Pupils: Pupils are equal, round, and reactive to light. Comments: Bilateral conjunctival injection, L > R. Neck: Vascular: No JVD. Trachea: No tracheal [...] No results found for this visit on 03/30/23. LABORATORY STUDIES: No results found for this visit on 03/30/23. IMAGING STUDIES No orders to display ED Course / Medical Decision Making The patient has bilateral conjunctivitis. Plan for treatment with cipro drops. Medical Decision Making Problems Addressed: Conjunctivitis: acute illness or injury Risk Prescription drug management. Clinical Impression Conjunctivitis (Primary) Disposition: Discharge Tay Ward MD 03/31/23 0954 TRATOR * Nurse Lynette Rodas II - 03/30/2023 4:25 PM CST Pt presents to ED with double eye infection originating on 03/27. Reports severe swelling last night and vision affected, no swelling on arrival and not affecting vision. Cosigned by Lexi Ambrosio RN at 03/30/2023 4:36 PM ARBITRATOR TRATOR TRATOR documented in this encounter Plan of Treatment Not on file documented as of this encounter Visit Diagnoses Diagnosis Conjunctivitis- Primary Conjunctivitis, unspecified documented in this encounter Care Teams Nuclear Fuel Enrichment Technician Relationship Specialty Start Date End Date None, Provider, PCP - General 11/27/20 07/11/23 documented as of this encounter
--- OUTSIDE RECORDS SUMMARY | 2024-04-04 01:21 | XMS_ITS | Encounter Summary ---
Author Organization [facility] Address [address] [place] [address]. [place], [place] [id number] [place] [id number] Care Team Providers Care Nutrition Faculty Member Name Role Phone None, Provider MD Primary Care Provider Unavaila ble Reason for Referral * Imaging (Urgent) - Closed Specialty Diagnoses / Procedures Referred By Contmaricel t Referred To Contact RADIOLOGY Procedures CT ORBITS W Chantel Bui MD [address] [place] [address] Phone: tel: fax: Referral ID Status Reason Start Date Expiration Date Visits Re quested Visits Authorized [id number] Closed 02/11/2023 02/12/2024 1 1 PROCESSOR Reason for Visit * Reason Comments Eye Swelling Encounter Details Date Type Department Care Team (Late st Contact Info) Description 02/11/2023 2:53 PM MAIL PROCESSOR - 02/11/2023 5:18 PM MAIL PROCESSOR Emergency [facility] Emergency Room [address] [place] [address] Chantel Sims MD [address] [place] [address] Eye Swelling Discharge Disposition: Home or Self Care (Routine [...] Sign Reading Time Taken Comments Blood Pressure 111/76 02/11/2023 5:15 PM MAIL PROCESSOR Pulse 77 02/11/2023 4:29 PM MAIL PROCESSOR Temperature 36.7 ??C (98.1 ??F) 02/11/2023 2:54 PM CS T Respiratory Rate 18 02/11/2023 5:15 PM MAIL PROCESSOR Oxygen Saturation 100% 02/11/2023 5:15 PM MAIL PROCESSOR Inhaled Oxygen Concentration - - Weight 52.2 kg (115 lb) 02/11/2023 2:54 PM MAIL PROCESSOR Height 162.6 cm (5' 4 ) 02/11/2023 2:54 PM MAIL PROCESSOR Body Mass Index 19.74 02/11/2023 2:54 PM MAIL PROCESSOR documented in this encounter Discharge Instructions * Discharge Instructions* Chantel Hill MD - 02/11/2023 4:17 PM MAIL PROCESSOR You had bacterial conjunctivitis. You will be sent home with prescriptions for toradol for pain, an oral antibiotic and different antibiotic eye drops. Please schedule a follow up appointment with your primary care physician within the next 5-7 days Please return to the Emergency Department for any new or worsening concern Call your eye doctor Monday to follow up. Return for any concerns. For your new eye drops, here are the directions how to take: Instill 1 to 2 drops into the conjunctival sac every 2 hours while awake for 2 days and 1 to 2 drops every 4 hours while awake for the next 5 days. Bacterial conjunctivitis is both highly contagious and spread by direct contact with secretions or contact with contaminated objects. Do not share handkerchiefs, tissues, towels, cosmetics, linens, or eating utensils. The safest approach to prevent spread to others is to stay home until there is no longer any discharge. If this is not feasible due to work or school, you should receive 24 hours oftopical therapy before returning to school. If you have have contact with the very old, the very young, and immune- compromised, take care to avoid spread of infection from their eye secretions to these susceptible people. PROCESSOR PROCESSOR documented in this encounter Medications at Time of Discharge melatonin 5 MG tablet Take 2 tablets (10 mg total) by mouth nightly. amoxicillin-clavu lanate (AUGMENTIN) 875-125 MG tablet Take 1 tablet (875 mg total) by mouth 2 (two) times daily for 10 days. 20 tablet 02/11/2023 02/21/2023 escitalopram 20 MG tablet Take 20 mg by mouth daily. 07/18/2023 hydrOXYzine (ATARAX) 10 MG tablet TAKE 1 TABLET ORALLY THREE TIMES DAILY NEEDED FOR 30 DAYS 07/18/2023 ketorolac (ACULAR) 0.5 % ophthalmic solution INSTILL 1 DROP INTO RIGHT EYE EVERY 6 HOURS NEEDED FOR PAIN 02/09/2023 01/04/2024 ketorolac (TORADOL) 10 MG tablet Take 1 tablet (10 mg total) by mouth 4 (four) times daily as needed for Pain. 20 tablet 02/11/2023 02/16/2023 levoFLOXacin (QUIXIN) 0.5 % ophthalmic solution Place 1 drop into both eyes every 2 (two) hours for 7 days. 5 mL 02/11/2023 02/18/2023 trimethoprim-poly myxin b (POLYTRIM) ophthalmic solution INSTILL 1 DROP INTO RIGHT EYE EVERY 3 HOURS FOR 7 DAYS WHILE AWAKE . DO NOT EXCEED 6 DOSES IN 24 HOURS 02/09/2023 07/18/2023 documented as of this encounter ED Notes * Lexi Ambrosio RN - 02/11/2023 2:59 PM CST 17 year old female in with complaints of bilateral eye pain since Monday. Patient had false lashes placed on Monday and states she awoke Monday with redness and irritation to right eye, patient was prescribed medications and has been taking them with no improvement. Patient prescribed toradol eye drops, atarax and Polytrim eye drops Patient notes the irritation and pain has moved to her left eye as of . Patient rates pain a 8-9/10 at this time. PROCESSOR * Chantel Hill MD - 02/11/2023 2:55 PM CST Images from the original note were not included. Chief Complaint Chief Complaint Patient presents with Eye Swelling History of Present Illness Patient is a 17-year-old female with past medical history of anxiety and depression presenting for eye swelling. On Monday of this week she was borrowing her friends fake eyelashes. She used her friend's glue as well. She took them off later that night. On Monday she woke up and her right eye was significantly painful and swollen. She went to urgent care and they diagnosed her with bacterial conjunctivitis treated her with Toradol and polymyxin eyedrops. She has been taking as prescribed. She is continued having eye pain and swelling. She took a nap this morning and woke up with pain in her left eye now as well. She has red eyes bilaterally. She is having swelling around her eyes. They are painful and itchy. She has pus drainage. She also notes decreased vision in both eyes and blurred vision. No other medical history. Does not take any other medications daily. No medication allergies, no prior surgeries. Medical History ALLERGIES: Review of patient's allergies indicates: Allergen Reactions Flexeril [Cyclobenzaprine] Nausea and Vomiting MEDICATIONS: Prior to Admission medications Medication Sig Start Date End Date Taking? Authorizing Provider amoxicillin-clavulanate (AUGMENTIN) 875-125 MG tablet Take 1 tablet (875 mg total) by mouth 2 (two)times daily for 10 days. 02/11/23 02/21/23 Yes Chantel Hill MD ketorolac (ACULAR) 0.5 % ophthalmic solution INSTILL 1 DROP INTO RIGHT EYE EVERY 6 HOURS NEEDED FOR PAIN 02/09/23 Yes Default History Genericprovider ketorolac (TORADOL) 10 MG tablet Take 1 tablet (10 mg total) by mouth 4 (four) times daily as needed for Pain. 02/11/23 02/16/23 Yes Chantel Hill MD levoFLOXacin (QUIXIN) 0.5 % ophthalmic solution Place 1 drop into both eyes every 2 (two) hours for7 days. 02/11/23 02/18/23 Yes Chantel Hill MD trimethoprim-polymyxin b (POLYTRIM) ophthalmic solution INSTILL 1 DROP INTO RIGHT EYE EVERY 3 HOURSFOR 7 DAYS WHILE AWAKE . DO NOT EXCEED 6 DOSES IN 24 HOURS 02/09/23 Yes Default History Genericprovider escitalopram 20 MG tablet Take 20 mg by mouth daily. Doc [facility] hydrOXYzine (ATARAX) 10 MG tablet TAKE 1 TABLET ORALLY THREE TIMES DAILY NEEDED FOR 30 DAYS Default History Genericprovider melatonin 5 MG tablet Take 10 mg by mouth nightly. Doc [facility] PAST MEDICAL HISTORY: Past Medical History: Diagnosis Date Anxiety 2019 Depression 2019 PAST SURGICAL HISTORY: History reviewed. No pertinent surgical history. FAMILY HISTORY: Family History Problem Relation Name Age of Onset No Known Problems Mother No Known Problems Father No Known Problems Sister SOCIAL HISTORY: Social History Tobacco Use Smoking status: Never Smokeless tobacco: Never Vaping Use Vaping Use: Never used Substance Use Topics Alcohol use: Never Drug use: Never Review of Systems Review of Systems Constitutional: Negative for chills and fever. HENT: Positive for rhinorrhea. Negative for congestion. Eyes: Positive for pain, discharge, redness, itching and visual disturbance. Negative for photophobia. Respiratory: Negative for cough and shortness of breath. Cardiovascular: Negative for chest pain. Gastrointestinal: Negative for abdominal pain. Genitourinary: Negative for dysuria. Neurological: Negative for dizziness and headaches. Physical Exam Filed Vitals: 02/11/23 1454 02/11/23 1629 02/11/23 1645 02/11/23 1715 BP: 110/65 123/75 134/78 111/76 Pulse: 80 77 Resp: Temp: 98.1 ??F (36.7 ??C) TempSrc: Oral SpO2: 100% 100% 100% Weight: 52.2 kg (115 lb) Height: 1.626 m (5' 4 ) Physical Exam Vitals and nursing note reviewed. Constitutional: General: She is not in acute distress. Appearance: She is not ill-appearing. HENT: Head: Normocephalic and atraumatic. Right Ear: External ear normal. Left Ear: External ear normal. Nose: Rhinorrhea present. Mouth/Throat: Mouth: Mucous membranes are moist. Eyes: Pupils: Pupils are equal, round, and reactive to light. Comments: Eomi, painful eye movements bilaterally, proptosis of right eye, discharge bilaterally, conjunctiva erythematous Abdominal: General: Abdomen is flat. There is no distension. Palpations: Abdomen is soft. Tenderness: There is no abdominal tenderness. There is no guarding or rebound. Skin: General: Skin is warm and dry. Neurological: Mental Status: She is alert and oriented to person, place, and time. Psychiatric: Mood and Affect: Mood normal. Behavior: Behavior normal. Diagnostic Studies / Procedures ELECTROCARDIOGRAMS: No results found for this visit on 02/11/23. LABORATORY STUDIES: Results for orders placed or performed during the hospital encounter of 02/11/23 CBC W/DIFF AUTOMATED Result Value Ref Range WBC 9.61 4.4 - 11.0 x10'3/uL RBC 4.66 4.50 - 5.10 x10'6/uL HGB 14.0 12.3 - 15.3 G/DL HCT 42.6 35.9 - 44.6 % MCV 91.4 80.0 - 96.0 FL MCH 30.0 25.3 - 30.9 PG MCHC 32.9 31.0 - 34.1 G/DL RDW 14.2 12.4 - 15.1 % PLT 328 151 - 353 x10'3/uL MPV 8.9 (L) 9.6 - 12.0 FL RBC MORPHOLOGY NORMAL PLT MORPH. NORMAL WBC MORPHOLOGY NORMAL LYMPHOCYTES 19.1 15.8 - 45.0 % NEUTROPHILS 74.2 (H) 42.1 - 71.9 % MONOCYTES 5.7 5.7 - 12.5 % EOSINOPHILS 0.4 0.0 - 5.6 % BASOPHILS 0.4 0.0 - 1.3 % ABS. NEUTROPHILS 7.12 (H) 1.40 - 6.00 x10'3/uL IMMATURE GRANS 0.2 0.0 - 0.5 % ABS. LYMPHOCYTES 1.84 0.80 - 4.70 x10'3/uL COMPREHENSIVE METABOLIC PANEL Result Value Ref Range GLUCOSE 99 70 - 99 MG/DL BUN 12 7 - 18 MG/DL CREATININE S/P/B 0.68 0.55 - 1.02 MG/DL SODIUM S/P/B 139 136 - 145 MMOL/L POTASSIUM S/P/B 4.1 3.5 - 5.1 MMOL/L CHLORIDE S/P/B 103 100 - 108 MMOL/L CO2 29.0 21 - 32 MMOL/L CALCIUM S/P/B 9.3 8.5 - 10.1 MG/DL BILIRUBIN TOTAL S/P/B 0.8 0.2 - 1.1 MG/DL TOTAL PROTEIN S/P/B 7.8 6.4 - 8.2 G/DL ALBUMIN S/P/B 3.9 3.4 - 5.0 G/DL AST 15 15 - 37 U/L ALT 19 14 - 55 U/L ALKALINE PHOSPHATASE S/P/B 95 50 - 136 U/L ANION GAP 7.0 5 - 15 MMOL/L BUN CREATININE RATIO 17.6 6 - 26 A/G RATIO 1.0 1.0 - 2.0 RATIO GFR ESTIMATE >90 >90 ML/MIN/1.73 M2 Quantitative HCG Result Value Ref Range HCG QUANTITATIVE <1 0 - 6 MIU/ML IMAGING STUDIES CT ORBITS W CON Final Result by User, [id number] (02/12 1716) EXAMINATION: CT ORBITS W CON CLINICAL HISTORY: Bilateral eye pain COMPARISON: None DATE/TIME: 02/11/2023 4:34 PM TECHNIQUE: Multiplanar CT images of the orbits were obtained. IV contrast: uneventful intravenous administration of 60 mL Isovue 370. Oral contrast: None. A dose lowering technique was used for this procedure, which may include, but is not limited to, dose reduction technique, automated exposure control, the use of iterative reconstruction, and ALARA (As Low As Reasonably Achievable) / Image Gently techniques. FINDINGS: No orbital mass or fluid collection. No evidence of orbital cellulitis identified. No acute osseous abnormality. Sinuses are clear. IMPRESSION: No evidence of orbital cellulitis. Referred By: Interpreted By: Kenney Johnson MD, 02/11/2023 5:05 PM ED Course / Medical Decision Making Medical Decision Making Patient is a 17-year-old female presenting with eye pain and redness as described above. Hemodynamically stable on arrival in no distress. Afebrile. She has pain with extraocular motility, conjunctival injection, proptosis of her right eye, will obtain CT scan of orbits to rule out orbital cellulitis. Will treat with Unasyn IV. Will obtain CBC looking for infection anemia, CMP for renal hepatic impairment and a test. Discussed plan with patient she agrees. Treat with pain and nausea medications. Answered all questions. Not meeting septic criteria at this time. ED Course as of 02/11/23 172 Sat Feb 11, 2023 1609 Apply fluorescein staining with tetracaine eyedrops, no corneal abrasion identified, significant swelling of her conjunctiva. Tetracaine did improve her pain. Eye pressure 15 in the right eye, 13 in the left eye; pupils equal and reactive [GHASSAN] ED Course User Index [GHASSAN] Chantel Hill MD Clinical Impression Bacterial conjunctivitis of both eyes (Primary) Updated patient on all results answered all questions. Sent prescription to the [facility] pharmacy. Which closes at 1900 she will get with them now. Spoke with the pharmacist and she will switch to Cipro to the levofloxacin eyedrops. Recommended not taking her other eyedrops and changing to this. Recommended she call her eye doctor to follow-up as soon as possible. Discussed strict return precautions. Answered all questions. Disposition: Discharge Chantel Hill MD 02/11/231720 PROCESSOR documented in this encounter Plan of Treatment Not on file documented as of this encounter Procedures Procedure Name Priority Date/Time Associated Diagnosis Comments CT ORBITS W CON STAT 02/11/2023 4:47 PM MAIL PROCESSOR COMPREHENSIVE METABOLIC PANEL STAT 02/11/2023 3:29 PM MAIL PROCESSOR HCG QUANT (SERUM)-CHORIONIC GONADOTROPIN STAT 02/11/2023 3:29 PM MAIL PROCESSOR CBC W/DIFF AUTOMATED STAT 02/11/2023 3:29 PM MAIL PROCESSOR documented in this encounter Results * CT ORBITS W CON (02/11/2023 4:47 PM MAIL PROCESSOR) Anatomical Region Laterality Modality Orbits Computed Tomogra phy 02/11/2023 5:05 PM MAIL PROCESSOR Impressions 02/11/2023 5:11 PM MAIL PROCESSOR IMPRESSION: No evidence of orbital cellulitis. Referred By: ?? Interpreted By: Kenney Johnson MD, 02/11/2023 5:05 PM Narrative 02/11/2023 5:11 PM MAIL PROCESSOR EXAMINATION: CT ORBITS W CON CLINICAL HISTORY: Bilateral eye pain COMPARISON: None DATE/TIME: 02/11/2023 4:34 PM TECHNIQUE: Multiplanar CT images of the orbits were obtained. ??IV contrast: uneventful intravenous administration of 60 mL Isovue 370. ??Oral contrast: None. ?? A dose lowering technique was used for this procedure, which may include, but is not limited to, dose reduction technique, automated exposure control, the use of iterative reconstruction, and ALARA (As Low As Reasonably Achievable) / Image Gently techniques. FINDINGS: No orbital mass or fluid collection. ??No evidence of orbital cellulitis identified. ??No acute osseous abnormality. ??Sinuses are clear. Procedure Note Kenney Johnson MD - 02/11/2023 EXAMINATION: CT ORBITS W CON CLINICAL HISTORY: Bilateral eye pain COMPARISON: None DATE/TIME: 02/11/2023 4:34 PM TECHNIQUE: Multiplanar CT images of the orbits were obtained. IVcontrast: uneventful intravenous administration of 60 mL Isovue 370. Oralcontrast: None. A dose lowering technique was used for this procedure, which may include,but is not limited to, dose reduction technique, automated exposurecontrol, the use of iterative reconstruction, and ALARA (As Low AsReasonably Achievable) / Image Gently techniques. FINDINGS: No orbital mass or fluid collection. No evidence of orbitalcellulitis identified. No acute osseous abnormality. Sinuses areclear. IMPRESSION: No evidence of orbital cellulitis. Referred By: Interpreted By: Kenney Johnson MD, 02/11/2023 5:05 PM Chantel Sims MD CT Final Result * Quantitative HCG (02/11/2023 3:29 PM MAIL PROCESSOR) HCG QUANTITATIVE <1 0 - 6 MIU/ML 02/11/2023 4:11 PM MAIL PROCESSOR [facility] Comment: WEEKS OF ? REFERENCE RANGES NON- FEMALE ?0-6 ? 0.2 - 1 ? 5 - 50 ? 1 - 2 ? 50 - 500 ? 2 - 3 ? 100 - 5000 ? 3 - 4 ? 500 - 10,000 ? 4 - 5 ? 1000 - 50,000 ? 5 - 6 ? 10,000 - 100,000 ? 6 - 8 ? 15,000 - 200,000 ? 2 - 3 MONTHS ?10,000 - 100,000 02/11/2023 3:29 PM MAIL PROCESSOR us Chantel Sims MD LABORATORY Final Result [facility] [address] [place] [address], * COMPREHENSIVE METABOLIC PANEL (02/11/2023 3:29 PM MAIL PROCESSOR) GLUCOSE 99 70 - 99 MG/DL 02/11/2023 4:11 PM MAIL PROCESSOR [facility] BUN 12 7 - 18 MG/DL 02/11/2023 4:11 PM [facility] CREATININE S/P/B 0.68 0.55 - 1.02 MG/DL 02/11/2023 4:11 PM [facility] SODIUM S/P/B 139 136 - 145 MMOL/L 02/11/2023 4:11 PM [facility] POTASSIUM S/P/B 4.1 3.5 - 5.1 MMOL/L 02/11/2023 4:11 PM [facility] CHLORIDE S/P/B 103 100 - 108 MMOL/L 02/11/2023 4:11 PM [facility] CO2 29.0 21 - 32 MMOL/L 02/11/2023 4:11 PM [facility] CALCIUM S/P/B 9.3 8.5 - 10.1 MG/DL 02/11/2023 4:11 PM [facility] BILIRUBIN TOTAL S/P/B 0.8 0.2 - 1.1 MG/DL 02/11/2023 4:11 PM [facility] TOTAL PROTEIN S/P/B 7.8 6.4 - 8.2 G/DL 02/11/2023 4:11 PM [facility] ALBUMIN S/P/B 3.9 3.4 - 5.0 G/DL 02/11/2023 4:11 PM [facility] AST 15 15 - 37 U/L 02/11/2023 4:11 PM [facility] ALT 19 14 - 55 U/L 02/11/2023 4:11 PM [facility] ALKALINE PHOSPHATASE S/P/B 95 50 - 136 U/L 02/11/2023 4:11 PM [facility] ANION GAP 7.0 5 - 15 MMOL/L 02/11/2023 4:11 PM [facility] BUN CREATININE RATIO 17.6 6 - 26 02/11/2023 4:11 PM [facility] A/G RATIO 1.0 1.0 - 2.0 RATIO 02/11/2023 4:11 PM [facility] GFR ESTIMATE >90 >90 ML/MIN/1.7 3 M2 02/11/2023 4:11 PM [facility] Comment: NOTE: eGFR is not calculated for patients <18 years of age. This is an estimated GFR calculation using the new CKD EPI creatinine equation without race and so does not require a correction factor for race. This estimated GFR should not be used for calculating drug doses. 02/11/2023 3:29 PM MAIL PROCESSOR Chantel Sims MD LABORATORY Final Result [facility] [address] [place] [address], [place] [phone] * (ABNORMAL) CBC W/DIFF AUTOMATED (02/11/2023 3:29 PM MAIL PROCESSOR) WBC 9.61 4.4 - 11.0 x10'3/uL 02/11/2023 3:35 PM [facility] RBC 4.66 4.50 - 5.10 x10'6/uL 02/11/2023 3:35 PM [facility] HGB 14.0 12.3 - 15.3 G/DL 02/11/2023 3:35 PM [facility] HCT 42.6 35.9 - 44.6 % 02/11/2023 3:35 PM [facility] MCV 91.4 80.0 - 96.0 FL 02/11/2023 3:35 PM [facility] MCH 30.0 25.3 - 30.9 PG 02/11/2023 3:35 PM [facility] MCHC 32.9 31.0 - 34.1 G/DL 02/11/2023 3:35 PM [facility] RDW 14.2 12.4 - 15.1 % 02/11/2023 3:35 PM [facility] PLT 328 151 - 353 x10'3/uL 02/11/2023 3:35 PM [facility] MPV 8.9(L) 9.6 - 12.0 FL 02/11/2023 3:35 PM [facility] RBC MORPHOLOGY NORMAL 02/11/2023 3:35 PM [facility] PLT MORPH. NORMAL 02/11/2023 3:35 PM [facility] WBC MORPHOLOGY NORMAL 02/11/2023 3:35 PM [facility] LYMPHOCYTES % 19.1 15.8 - 45.0 % 02/11/2023 3:35 PM [facility] NEUTROPHILS % 74.2(H) 42.1 - 71.9 % 02/11/2023 3:35 PM [facility] MONOCYTES % 5.7 5.7 - 12.5 % 02/11/2023 3:35 PM [facility] EOSINOPHILS 0.4 0.0 - 5.6 % 02/11/2023 3:35 PM [facility] BASOPHILS 0.4 0.0 - 1.3 % 02/11/2023 3:35 PM [facility] ABS. NEUTROPHILS 7.12(H) 1.40 - 6.00 x10'3/uL 02/11/2023 3:35 PM [facility] IMMATURE GRANS % 0.2 0.0 - 0.5 % 02/11/2023 3:35 PM [facility] ABS. LYMPHOCYTES 1.84 0.80 - 4.70 x10'3/uL 02/11/2023 3:35 PM [facility] 02/11/2023 3:29 PM MAIL PROCESSOR us Chantel Sims MD LABORATORY Final Result [facility] [address] [place] [address], [place] [phone] documented in this encounter Visit Diagnoses Diagnosis Bacterial conjunctivitis of both eyes- Primary documented in this encounter Administered Medications Inactive Administered Medications - up to 3 most recent administrations Medication Order MAR Action Action Date Dose Rate Site ampicillin-sulbactam (UNASYN) 3 g in sodium chloride 0.9 % 100 mL IVPB 3 g, Intravenous, at 200 mL/hr, Once, 1 dose, On 02/11/23 at 1600 New Bag 02/11/2023 3:55 PM MAIL PROCESSOR 3 g 200 mL/hr fluorescein (FLUORETS) ophthalmic strip 1 strip 1 strip, Both Eyes, Once, 1 dose, On 02/11/23 at 1600 Given 02/11/2023 3:51 PM MAIL PROCESSOR 1 strip iopamidol (ISOVUE-370) 76 % injection 60 mL 60 mL, Intravenous, IMG once as needed, Contrast, 1 dose, Starting on 02/11/23 at 1647, Until 02/11/23 at 1638 Given 02/11/2023 4:38 PM MAIL PROCESSOR 60 mLs Left Arm ketorolac (TORADOL) injection 15 mg 15 mg, Intravenous, Once, 1 dose, On 02/11/23 at 1530, For IV administration, give over 15 seconds. Given 02/11/2023 4:28 PM MAIL PROCESSOR 15 mg ondansetron (ZOFRAN) injection 4 mg 4 mg, Intravenous, Once, 1 dose, On 02/11/23 at 1530, IV push over 2-5 minutes. Given 02/11/2023 3:29 PM MAIL PROCESSOR 4 mg tetracaine 0.5 % ophthalmic solution 1 drop 1 drop, Both Eyes, Once, 1 dose, On 02/11/23 at 1600 Given by Other 02/11/2023 3:51 PM MAIL PROCESSOR 1 drop documented in this encounter Active and Recently Administered Medications Times are shown in MAIL PROCESSOR. Scheduled Medication Order 02/09/2023 02/10/2023 02/11/2023 ampicillin-sulbactam (UNASYN) 3 g in sodium chloride 0.9 % 100 mL IVPB (COMPLETED) 3 g, Intravenous, at 200 mL/hr, Once, 1 dose, On 02/11/23 at 1600 1555 (New Bag - Prov ider: Lexi Ambrosio RN)1625 (Infusion Stop Time - Provider: Lexi Ambrosio RN) fluorescein (FLUORETS) ophthalmic strip 1 strip (COMPLETED) 1 strip, Both Eyes, Once, 1 dose, On 02/11/23 at 1600 1551 (Given - Provid er: Lexi Ambrosio RN) ketorolac (TORADOL) injection 15 mg (COMPLETED) 15 mg, Intravenous, Once, 1 dose, On 02/11/23 at 1530, For IV administration, give over 15 seconds. 1628 (Given - Provid er: Lexi Ambrosio RN) ondansetron (ZOFRAN) injection 4 mg (COMPLETED) 4 mg, Intravenous, Once, 1 dose, On 02/11/23 at 1530, IV push over 2-5 minutes. 1529 (Given - Provid er: Lexi Ambrosio RN) tetracaine 0.5 % ophthalmic solution 1 drop (COMPLETED) 1 drop, Both Eyes, Once, 1 dose, On 02/11/23 at 1600 1551 (Given by Other - Provider: Lexi Ambrosio RN) PRN Medication Order 02/09/2023 02/10/2023 02/11/2023 iopamidol (ISOVUE-370) 76 % injection 60 mL (COMPLETED) 60 mL, Intravenous, IMG once as needed, Contrast, 1 dose, Starting on 02/11/23 at 1647, Until 02/11/23 at 1638 1638 (Given - Provid er: Taylor Jimenez, RTR) documented in this encounter Care Teams Nutrition Faculty Member Relationship Specialty Start Date End Date None, Provider, PCP - General 11/27/20 07/11/23 documented as of this encounter
--- OUTSIDE RECORDS SUMMARY | 2024-04-04 01:21 | XMS_ITS | Encounter Summary ---
Author Organization [facility] Address [address] [place] [address] Care Team Providers Care Spray Gun Operator Name Role Phone Melany Vieira MD Primary Care Provider [phone] Reason for Visit * Reason Comments Mass bump to left great t oe present for since october 2009 Encounter Details Date Type Department Care Team (Latest Contact Info) Description 07/19/2010 1:00 PM CDT - 07/19/2010 1:19 PM CDT Hospital Encounter [facility] - Dermatology [address] [place] [address] Discharge Disposition: Home or Self Care Social History Tobacco Use Types Packs/Day Years Used Date Smoking Tobacco: Never Assessed Sex and Gender Information Value Date Recorded Sex Assigned at Not on file Gender Identity Not on file Sexual Orientation Not on file documented as of this encounter Discharge Instructions * Patient Instructions* Rogers Colon MD - 07/19/2010 2:12 PM CDT Have X ray performed. Call in 1 week for results. Recommend: Dr Le's: mole skin, foam pad, donut pad documented in this encounter Progress Notes * Amina Bergman MD - 07/19/2010 1:36 PM CDT SUBJECTIVE: Himanshu Damon is a 4 y.o. female accompanied by mother, sister, aunt and cousin for a new patient evaluation. They were referred by Dr. Melany Vieira for c/o tender lesion at left great toe, onset 1 year ago and most recently evaluated by Dr. Vieira 04/21/10. Prior treatments include: Courses of oral antibiotics x 2, initially 10 d amoxicillin, then Augmentin w/ no improvement. Denies hx/o trauma. the lesion enlarged over the winter but has been stable for several months. Mom attempted to pop it w/ a sterile needle without success. Mom and aunt are concerned about pt crying in agony when she stubs her toe . Mom very frustratedbecause I've been dealing with this for a year , I had to wait 3 months to get this appointment. and I had to take time off work to make the call . Our records indicate that a FAX referral was received 04/22/10; mom called for appt 05/19/10--schedule already full; instructed to call 06/07/10 for 07/08/10 appointment. She did not call again until 06/21/10. Instructed to call 06/25/10 for 07/09/10 appt. Interval history: no topical or other meds used No current outpatient prescriptions on file. OBJECTIVE: BP 96/52 Wt 24 kg (52 lb 14.6 oz) BMI 16.50 kg/m2 Appearance: alert, well appearing, and in no distress, oriented to person, place, and time and normal appearing weight. Skin exam: medial aspect of L great toe w/ subtle, poorly circumscribed fullness. Tenderness to palpation difficult to elicit. Pt verbalized ow when pressure was applied within her range of vision,but not when she was otherwise distracted. No warmth, erythema or edema. 2 mm verrucous papule on plantar aspect of the of L great toe. ASSESSMENT: Patient Active Problem List Diagnoses Date Noted ??? Plantar wart [078.12] 07/19/2010 single lesion, 2 mm L great toe, uncertain onset. ??? PAINFUL BUMP L GREAT TOE [782.2Z] 07/19/2010 The lesion is non-specific and subtle; pain is difficult to assess. Consider bony exostosis, pressure-induced callosity, atypical onychocryptosis. PLAN: Recommend mole skin, foam pad, donut pad for comfort. Also discussed the value of a L foot Xray andsubsequent orthopedic referral if X ray is abnormal. Attempted to apologize about being unable to make a dermatologic diagnosis. Mom remained frustrated. Orders Placed This Encounter ??? XR TOES 2+ VW LEFT Order Specific Question: Exam to be performed? Answer: Per Radiologist protocol No additional treatment requested or offered to treat the wart. Prior to leaving this office, pts aunt place a call to a manager willow for further evaluation. documented in this encounter H&P Notes * Document, Scanned - 10/27/2010 6:09 PM CDT documented in this encounter Miscellaneous Notes * Miscellaneous Scans - Document, Scanned - 10/27/2010 6:29 PM CDT * Miscellaneous Scans - Document, Scanned - 10/27/2010 6:29 PM CDT * Miscellaneous Scans - Document, Scanned - 09/24/2010 6:23 PM CDT documented in this encounter Plan of Treatment Upcoming Encounters Date Type Department Care Team (Late st Contact Info) Description 04/09/2024 8:40 AM WEAPONS OFFICER [employer] Office Visit [facility] - Endocrinology [address] [facility] [place] [id number] Hilario Traore MD [address] [place] [address] Scheduled Orders Name Type Priority Associated Diagnoses Orde r Schedule XR TOES 2+ VW LEFT Imaging Routine PAINFUL BUMP L GREAT TOE Ordered: 07/19/2010 documented as of this encounter Visit Diagnoses Diagnosis PAINFUL BUMP L GREAT TOE Localized superficial swelling, mass, or lump Plantar wart documented in this encounter Care Teams Spray Gun Operator Relationship Specialty Start Date End Date Melany Vieira MD [address] [facility] [address] [place] [address] PCP - General 07/19/10 12/19/13 documented as of this encounter
--- OUTSIDE RECORDS SUMMARY | 2024-04-04 01:21 | XMS_ITS | Encounter Summary ---
Author Organization [facility] Address [address] [place] [address]. [place] [address] [place] [address] Care Team Providers Care Superintendent Recreation Name Role Phone None, Provider MD Primary Care Provider Unavaila ble Reason for Visit * Reason Comments Eye Pain Encounter Details Date Type Department Care Team (Late st Contact Info) Description 02/28/2023 8:07 AM TYPE SOLDERING MACHINE TENDER - 02/28/2023 9:39 AM [facility] Emergency [facility] Emergency Room [address] [place] [address] [id number] Starr Vences MD [address] [place] [address] Eye Pain Discharge Disposition: Home or Self Care (Routine Discharge) Social History Tobacco Use Types Packs/Day Years Used Date Smoking Tobacco: Every Day Cigarettes Smokeless Tobacco: Never Tobacco Cessation:Ready to Q uit: Not Asked; Counseling Given: Not Answered Alcohol Use Standard Drinks/Week Comments Never 0 [...] Sign Reading Time Taken Comments Blood Pressure 116/80 02/28/2023 8:10 AM TYPE SOLDERING MACHINE TENDER Pulse 74 02/28/2023 8:10 AM TYPE SOLDERING MACHINE TENDER Temperature 36.3 ??C (97.4 ??F) 02/28/2023 8:10 AM CS T Respiratory Rate 18 02/28/2023 8:10 AM TYPE SOLDERING MACHINE TENDER Oxygen Saturation 100% 02/28/2023 8:10 AM TYPE SOLDERING MACHINE TENDER Inhaled Oxygen Concentration - - Weight 50.3 kg (111 lb) 02/28/2023 8:10 AM TYPE SOLDERING MACHINE TENDER Height 162.6 cm (5' 4 ) 02/28/2023 8:10 AM TYPE SOLDERING MACHINE TENDER Body Mass Index 19.05 02/28/2023 8:10 AM TYPE SOLDERING MACHINE TENDER documented in this encounter Discharge Instructions * Discharge Instructions* Starr Vences MD - 02/28/2023 8:59 AM TYPE SOLDERING MACHINE TENDER Continue eyedrops as prescribed. Handwashing. Follow up with your eye doctor as needed. Return to ED if symptoms worsen. SOLDERING MACHINE TENDER SOLDERING MACHINE TENDER * Attachments The following attachments cannot be sent through Care Everywhere. * Conjunctivitis (Pinkeye) Discharge Instructions (Icelandic) documented in this encounter Medications at Time [...] 6 HOURS NEEDED FOR PAIN 02/09/2023 01/04/2024 neomycin-polymyxi n-hydrocortisone (CORTISPORIN) 3.5-23257-[address] 2 drops into the right eye every 4 (four) hours for 10 days. 5 mL 02/28/2023 03/10/2023 trimethoprim-poly myxin b (POLYTRIM) ophthalmic solution INSTILL 1 DROP INTO RIGHT EYE EVERY 3 HOURS FOR 7 DAYS WHILE AWAKE . DO NOT EXCEED 6 DOSES IN 24 HOURS 02/09/2023 07/18/2023 documented as of this encounter ED Notes * Starr Vences MD - 02/28/2023 8:57 AM CST Chief Complaint Chief Complaint Patient presents with Eye Pain History of Present Illness Patient is a 17-year-old who presents with complaints of redness of her left eye for the past 2 days. She has similar symptoms about 2 weeks ago after she put on somebody's eyelashes. She received antibiotics at the time and it resolved. Medical History ALLERGIES: Review of patient's allergies indicates: Allergen Reactions Flexeril [Cyclobenzaprine] Nausea and Vomiting MEDICATIONS: Prior to Admission medications Medication Sig Start Date End Date Taking? Authorizing Provider jkispotl-httcuhctx-mummkztdbeqcbb (CORTISPORIN) 3.5-75899-[address] 2 drops into the right eye every 4 (four) hours for 10 days. 02/28/23 03/10/23 Yes Starr Vences MD trimethoprim-polymyxin b (POLYTRIM) ophthalmic solution INSTILL [...] Never Review of Systems Review of Systems All other systems reviewed and are negative. Physical Exam Filed Vitals: 02/28/23 0810 BP: 116/80 Pulse: 74 Resp: 18 Temp: 97.4 ??F (36.3 ??C) TempSrc: Temporal SpO2: 100% Weight: 50.3 kg (111 lb) Height: 1.626 m (5' 4 ) Physical Exam Vitals and nursing note reviewed. Constitutional: Appearance: Normal appearance. HENT: Head: Normocephalic. Nose: Nose normal. Mouth/Throat: Mouth: Mucous membranes are moist. Eyes: General: Left eye: Discharge present. Conjunctiva/sclera: Left eye: Left conjunctiva is injected. Cardiovascular: Rate and Rhythm: Normal rate. Pulmonary: Effort: Pulmonary effort is normal. Musculoskeletal: Cervical back: Normal range of motion and neck supple. Neurological: Mental Status: She is alert. Mental status is at baseline. Diagnostic Studies / Procedures ELECTROCARDIOGRAMS: No results found for this visit on 02/28/23. LABORATORY STUDIES: No results found for this visit on 02/28/23. IMAGING STUDIES No orders to display ED Course / Medical Decision Making Medical Decision Making Patient commenced on antibiotic eye drops and will continue outpatient follow-up. Problems Addressed: Conjunctivitis: acute illness or injury Clinical Impression Conjunctivitis (Primary) Disposition: Discharge Starr Vences MD 03/01/23 0722 SOLDERING MACHINE TENDER * Lexi Ambrosio RN - 02/28/2023 8:11 AM CST 17 year old female in with complaints of left eye redness and irritation. Patient notes she was recently treatment for chemical burn on her eyes from false lash application, patient followed up with eye doctor and recently finished course of antibiotics. Patient rates pain a 6/10 at this time. Patient denies vision changes, alert and oriented. SOLDERING MACHINE TENDER documented in this encounter Plan of Treatment Not on file documented as of this encounter Visit Diagnoses Diagnosis Conjunctivitis- Primary Conjunctivitis, unspecified documented in this encounter Care Teams Superintendent Recreation Relationship Specialty Start Date End Date None, Provider, PCP - General 11/27/20 07/11/23 documented as of this encounter
--- OUTSIDE RECORDS SUMMARY | 2024-04-04 01:21 | XMS_ITS | Encounter Summary ---
Author Organization [facility] Address [address] [place] [address]. [place] [address] [place] [address] Care Team Providers Care Deputy Treasurer Name Role Phone None, Provider Primary Care Provider Unavaila ble Encounter Details Date Type Department Care Team (Late st Contact Info) Description 11/30/2022 6:25 PM CDT - 11/30/2022 8:42 PM CDT Emergency [facility] Emergency Room [id number] [place] [address] María Elena Cardoso MD [address] [place] [address] Discharge Disposition: Home or Self Care (Routine [...] on file documented as of this encounter Medications at Time of Discharge melatonin 5 MG tablet Take 2 tablets (10 mg total) by mouth nightly. escitalopram 20 MG tablet Take 20 mg by mouth daily. 07/18/2023 documented as of this encounter Progress Notes * Nichol Badillo MD - 11/30/2022 6:25 PM CDT Additional documentation from 11/20/22-12/06/22 may be found under the media tab. O TECHNICIAN documented in this encounter Plan of Treatment Not on file documented as of this encounter Visit Diagnoses Not on filedocumented in this encounter Care Teams Deputy Treasurer Relationship Specialty Start Date End Date None, Provider, PCP - General 11/27/20 07/11/23 documented as of this encounter
--- OUTSIDE RECORDS SUMMARY | 2024-04-04 01:21 | XMS_ITS | Encounter Summary ---
Author Organization [facility] Address [address] [place] [address]. [place] [address] [place] [address] Care Team Providers Care Oceanography Professor Name Role Phone Eduardo López Primary Care Provider [phone] Reason for Visit * Reason Onset Date Comments Prior Authorization 09/11/2023 Encounter Details Date Type Department Care Team (Late st Contact Info) Description 09/11/2023 Telephone [facility] [place] [place] [address] [place] [address] Prior Authorization Social History Tobacco Use Types Packs/Day Years [...] on file documented as of this encounter Progress Notes * Mary Ellen Lee RN - 09/11/2023 5:14 PM CDT This was prescribed by pt's hair preparer, not our office. Called Marianna with [facility] and informedher of this. She v/u. * Rachana Donahue - 09/11/2023 4:11 PM CDT Marianna with [facility] calling. Baqsimy is not covered by insurance. Will require a PA. Denise mentioned it it comes back that something else is available, [facility] can not get that medication in, not available. Questions call Denise [phone] documented in this encounter Plan of Treatment Not on file documented as of this encounter Visit Diagnoses Not on filedocumented in this encounter Additional Health Concerns Assessment Noted Time PHQ-9 Depression Total Score: 14 024 11:38 AM CDT documented as of this encounter Care Teams Oceanography Professor Relationship Specialty Start Date End Date Eduardo [place] [address] [place] [address] PCP - General Physician High Density Press Operator Medical 09/11/23 documented as of this encounter
--- OUTSIDE RECORDS SUMMARY | 2024-04-04 01:21 | XMS_ITS | Encounter Summary ---
Author Organization [facility] Address [address] [place] [address]. [place], [place] [address] [place] [address] Care Team Providers Care Pyrotechnics Press Tender Name Role Phone Eduardo López Primary Care Provider [phone] Reason for Referral * Consultation (Routine) - Pending Review Specialty Diagnoses / Procedures Referred By Contmaricel t Referred To Contact DIABETES EDUCATION Diagnoses Type 1 diabetes mellitus without complication ([facility]) Procedures OFFICE/OUTPATIENT NEW LOW MDM 30-44 MINUTES OFFICE/OUTPT VISIT,NEW,LEVL IV OFFICE/OUTPT VISIT,NEW,LEVL V OFFICE/OUTPT VISIT,EST,LEVL III OFFICE/OUTPT VISIT,EST,LEVL IV OFFICE/OUTPT VISIT,EST,[place] Eduardo [place] [address] [place] [address] Phone: tel: fax: [address] [place] [address] Phone: tel: fax: Referral ID Status Reason Start Date Expiration Date Visits Requested Visits Authorized [id number] Pending Review Diabetes Education 07/24/2023 07/23/2024 100 100 Scheduling Instructions [facility] Encounter Details Date Type Department Care Team (Late st Contact Info) Description 07/24/2023 Orders Only [facility] Family [facility] Internal Medicine - [place] [id number] [place] [phone] Eduardo [place] [address] [place] [address] Social History Tobacco Use Types Packs/Day Years [...] Diagnoses Orde r Schedule Ambulatory Referral to Diabetes Education and/or Medical Nutrition Therapy Referral Routine Type 1 diabetes mellitus without complication ([facility]) Ordered: 07/24/2023 documented as of this encounter Visit Diagnoses Diagnosis Type 1 diabetes mellitus without complication ([facility])- Primary Type I (juvenile type) diabetes mellitus without mention of complication, not stated as uncontrolled documented in this encounter Additional Health Concerns Assessment Noted Time PHQ-9 Depression Total Score: 14 024 11:38 AM CDT documented as of this encounter Care Teams Pyrotechnics Press Tender Relationship Specialty Start Date End Date Eduardo [place] [address] [place] [address] PCP - General Physician Director Of Corporate Strategy Medical 07/12/23 08/14/23 documented as of this encounter
--- OUTSIDE RECORDS SUMMARY | 2024-04-04 01:21 | XMS_ITS | Encounter Summary ---
Author Organization [facility] Address [address] [facility] [facility] [address] Care Team Providers Care Professor Of Surgery Name Role Phone Nohemy June MD Primary Care Provider [phone] Reason for Visit * Reason Comments Jaundice discharged on Monday from a brown recluse spider bite. today mom noted that pt sclera were yellowing. Spoke with Dr. Joyner who advised family to come in. denies fevers. pt c/o belly ache and headache. Pt presents with skin yellowing on face and yellowing sclera. states abdominal tenderness in mid epigastric region. awake and alert. * Auth/Cert - Closed Specialty Diagnoses / Procedures Referred By Contac t Referred To Contact Diagnoses Acute hemolysis Referral ID Status Reason Start Date Expiration Date Visits Re quested Visits Authorized [id number] Closed 1 1 Encounter Details Date Type Department Care Team (Latest Contact Info) Description 12/24/2013 7:21 PM CDT - 12/30/2013 9:29 AM CDT Hospital Encounter CG [address] [place] [address] Sal Joyner MD [address] [place] [id number] Lexy Worrell MD [address] [place] [id number] Mark Banks MD [address] [place] [address] Medical Inpatient Discharge Disposition: Home or Self Care Social [...] Sign Reading Time Taken Comments Blood Pressure 112/60 12/30/2013 4:20 AM CDT Pulse 80 12/30/2013 4:20 AM CDT Temperature 36 ??C (96.8 ??F) 12/30/2013 4:20 AM CDT Respiratory Rate 18 12/30/2013 4:20 AM CDT Oxygen Saturation - - Inhaled Oxygen Concentration - - Weight 36.4 kg (80 lb 4 oz) 12/25/2013 12:35 AM CDT Height 145 cm (4' 9.09 ) 12/25/2013 12:35 AM CDT Body Mass Index 17.31 12/25/2013 12:35 AM CDT Body Mass Index Percentile 54.37% 12/25/2013 12: 35 AM CDT Growth Chart: [facility] (Girls, 2- 20 Years) documented in this [...] 12/30/2013 documented as of this encounter Discharge Summaries * Mark Banks MD - 12/30/2013 8:47 PM CDT Images from the original note were not included. Attending Physician: Mark Banks MD Office 12/30/2013 8:47 PM Pediatric Discharge Summary Pt. Name: Himanshu Damon : 2005 Attending Physician : Mark Banks MD Admission Date: 12/24/2013 Discharge Date: 12/30/2013 Hospital Course: Himanshu Damon is a 8 y.o. Female with acute hemolysis, jaundice, headache and abdominal pain secondary to brown recluse spider bite. The patient was admitted 12/20-12/22 for a presumed brown recluse bite on her R leg and diffuse rash. Himanshu was treated with MIVF for adequate hydration ,IV Nexium for abdominal agitation. To treat her abdominal pain and headache we used Tylenol, Benadryl and Ibuprofen. She was admitted with a H&H of and it continued to trend downward until prior to discharge and on discharge her Hgb was 8.4 . Without relief from her abdominal pain an US was obtained and showed mesenteric adenitis which was treated with PRN Ibuprofen. Her oral intake increasedover her hospital course and she was discharged without any dietary or activity restrictions. Discharge Diagnosis(es): Jaundice Acute hemolysis secondary to brown recluse bite Condition on Discharge: Improved, Stable Consultations: Toxicology Diagnostic studies: Radiology: Ultrasound: abdomen Procedures: None Relevant Labs: There are no new lab results to review at this time. Discharge Physical Exam (relevant findings include): General: healthy, alert and no distress Eyes: no conjunctival injection, crusting or discharge Lungs: breath sounds symmetrical without rales or wheezes Heart: regular rate and rhythm, normal S1 and S2, no murmurs Abdomen: soft, non-tender, non-distended and no hepatosplenomegaly or masses Skin: no rashes Pending Results: Lab, Imaging, Vascular, PFT, Consult, Card Rehab, PT / OT, BehavMed, Immunizations None Discharge Medications: Discharge Medication List As of 12/30/2013 9:29 AM CONTINUE taking these medications Instructions Authorizing Provider acetaminophen 500 MG tablet Commonly known as: TYLENOL Take 500 mg by mouth every 4 hours as needed for Pain. Maximum allowable Acetaminophen amount = 4 Grams (4000 mg) / 24 hours. ibuprofen 200 MG tablet Commonly known as: MOTRIN Take 200 mg by mouth every 6 hours as needed for Pain. STOP taking these medications clindamycin 300 MG capsule Commonly known as: CLEOCIN diphenhydrAMINE 25 MG tablet Commonly known as: BENADRYL hydrocodone-acetaminophen 5-325 MG tablet Commonly known as: NORCO Discharge Procedure Orders Why you were hospitalized Order Specific Question Answer Comments Your discharge diagnosis is Acute hemolysis [[id number]] Follow up with Primary Care Provider (PCP) Our records show your Primary Care Provider (PCP) is Nohemy June. Order Specific Question Answer Comments Follow Up Instructions: Follow up with your radio assembler in 2-3 weeks. No special diet needed Resume normal home diet as tolerated. Activity as tolerated Rest today, and increase activity level tomorrow as tolerated. When to call Call [facility] Lead Scientist if you have questions or concerns, or for any of the following issues: -- temperature higher than 101F -- if Adisyn has increased shortness of breath or wheezing -- if Adisyn's pain gets worse or does not get better after taking pain medication(s) as directed -- if you see a lot of bleeding from Adisyn's IV site -- if Adisyn's IV site looks infected (red, swollen, warm to the touch, or non- clear, foul-smellingdrainage) Contact Information for Follow-Up Providers Nohemy June MD Specialty: Family Medicine Relationship: PCP - General [address] [place] [phone] Cynthia Mahajan MD CC: Nohemy June [address] [place] [phone] documented in this encounter Medications at Time of Discharge Medication Sig Dispensed Refills Start Date End Date acetaminophen (TYLENOL) 500 MG tablet Take 500 mg by mouth every 4 hours as needed for Pain. Maximum allowable Acetaminophen amount = 4 Grams (4000 mg) / 24 hours. ibuprofen (MOTRIN) 200 MG tablet Take 200 mg by mouth every 6 hours as needed for Pain. documented as of this encounter Progress Notes * Mark Banks MD - 12/30/2013 11:53 AM CDT Images from the original note were not included. Pediatric Attending Daily Progress Note 12/30/2013 11:53 AM Hospital Day: 6 I have seen Himanshu on rounds and have reviewed the findings with the resident. My findings (wolf elements and supplemental information) are as follows: Clinical Course No new issues. She remains afebrile. Exam: BP 112/60 Pulse 80 Temp(Src) 96.8 ??F Resp 18 Wt 36.4 kg (80 lb 4 oz) (seen on rounds at 9:19 AM) Gen: Awake, alert, in NAD CV: Regular rate and rhythm, no murmurs appreciated Chest: Clear to auscultation bilaterally, good aeration Lab/Other Information H/H is up slightly this AM to 8.4/25.9. Hospital Problems Acute hemolysis secondary to brown recluse bite Assessment & Plan Assessment: Himanshu is a 8 yr old female with acute hemolysis secondary to brown recluse bite. Her symptoms (jaundice) have resolved and H/H is improving on subsequent checks. Would anticipate continued improvement in H/H without further intervention. Plan: - will d/c home today See resident's note of 12/30/2013 for further details. Mark Banks MD [phone] * Lexy Worrell MD - 12/29/2013 6:59 PM CDT Images from the original note were not included. Pediatric Attending Daily Progress Note 12/29/2013 6:59 PM Hospital Day: 5 I have seen Himanshu on rounds and have reviewed the findings with the resident. My findings (wolf elements and supplemental information) are as follows: Clinical Course Did well yesterday, abdominal pain flaring up 1-2 hours after finishing her meals; appetite is normal. Exam: BP 90/50 Pulse 100 Temp(Src) 98.8 ??F Resp 24 Wt 36.4 kg (80 lb 4 oz) General: Awake, alert, in no distress, cooperative. HEENT: PERRL, nares clear, oropharynx benign, MMM. Neck: soft, supple , no LAD Heart: RRR, no murmurs. Chest: CTA bilaterally. Abdomen: soft, NT, ND, Regular bowel sounds. Extremities x 4: MAEW, no deformities; strong distal pulses Skin: warm, dry with no rashes. Neuro: normal non focal exam. Lab/Other Information H/H: 7.9/24.4 Hospital Problems 1. Brown Recluse bite 2. Hemolysis : improving and hemodynamically stable.. 3. Abdominal pain most likely 2ary to Gastritis and mesenteric lymphadenitis (cholecystitis ruled out). 4. Tension RAMOS: resolved. Plan: -Will discuss with Dr Joyner the discharge parameters. -Pain control and good hydration will help with adenitis pain. Discussed with mother and team during rounds this morning. See resident's note of 12/29/2013 for further details. Lexy Worrell MD * Cynthia Mahajna MD - 12/29/2013 12:27 PM CDT Images from the original note were not included. Pediatric Resident Daily Progress Note Himanshu Damon 12/29/2013 12:27 PM Hospital Day: 5 Clinical Course Himanshu showed increased PO intake overnight. Her episodes of pain and discomfort were minimal overnight.; She had one dose of benadryl prior to asleep for headache and discomfort. Objective BP 102/60 Pulse 96 Temp(Src) 98.6 ??F Resp 20 Wt 36.4 kg (80 lb 4 oz) 12/28 0700 - 12/29 0659 In: 2501 [P.O.:1020; I.V.:1481] Out: 650 [Urine:650] Exam: General - Patient is well developed, well nourished, and in no distress. Patient is alert & talkative. Eyes - EOM normal. Eyelids normal. PERRL. No scleral icterus. Skin - Spider bite lesion right lateral lower limb Neck - Supple. No lymphadenopathy. No tenderness. Cardiovascular - Regular rate and rhythm No murmur present. Bilateral Radial and DP pulses normal Chest - Clear to auscultation bilaterally normal respiratory effort. Abdomen - Soft. Normal bowel sounds. No distention present. No hepatosplenomegaly present. Mild lower quadrants tenderness, without rebound tenderness or guarding Neurological - Patient is awake and alert. Headache improved Lab/Other Information PM H&H: 8.1/24.5 Am H& H: 7.9/24.4 - both decreased Hospital Problems Acute hemolysis Assessment & Plan Assessment: Himanshu is a 8 yr old [...] discharged home if her symptoms continue to bestable and her labs continue to trend upward. Headaches- most likely tension headaches, will keep a journal dafter discharge and the symptoms become more persistent and increase in severity then will consider a neurology consult at that time after she follows up with her PCM Cynthia Mahajan MD * Linda Bryan RN - 12/29/2013 6:51 AM CDT Shift highlights: VSS, no c/o pain. Benadryl given x1 at bed time requested by mom. IV fluids running * Cynthia Mahajan MD - 12/28/2013 1:55 PM CDT Images from the original note were not included. Pediatric Resident Daily Progress Note Himanshu Damon 12/28/2013 1:55 PM Hospital Day: 4 Clinical Course Same cycle of demeanor continued today. Himanshu was doing well during the day then towards the nightand in the morning her disposition decreased tremendous with increase headache and abdominal pain. She was given Tylenol and Benadryl to control the pain of th headache and headache with marked improvement. The patient had an increase appetite last night with increase PO intake. Objective BP 98/42 Pulse 108 Temp(Src) 98.6 ??F Resp 20 Wt 36.4 kg (80 lb 4 oz) 12/27 0700 - 12/28 0659 In: 3374 [P.O.:480; I.V.:2894] Out: - Exam: General - Patient is well developed, well nourished, and in no distress. Patient is active. Patientis alert. Patient is talkative. Eyes - EOM normal. Eyelids normal. PERRL. No scleral icterus. Ears - Ear canal normal. External ear normal. TM normal. Skin - Capillary refill: brisk Diffuse slightly erythematous macular papular rash on extremities, 1cm area of necrosis on R inner knee with no fluctuance, swelling, or surrounding erythema/ecchymosis, no drainage from wound Neck - Supple. No lymphadenopathy. No tenderness. Cardiovascular - Regular rate and rhythm No murmur present. Right Radial Pulse: normal Right DP Pulse: normal Left Radial Pulse: normal Left DP Pulse: normal Chest - Clear to auscultation bilaterally normal respiratory effort. Abdomen - Soft. Normal bowel sounds. No distention present. Tenderness present.epigastric and RLQ tenderness No hepatosplenomegaly present. Diffuse tenderness, without rebound tenderness or guarding tenderness around bite on R inner knee Neurological - Patient is awake and alert. Headache localized to the bilateral temporals and the bilateral TMJ area. Lab/Other Information Am H& H: 7.7/23.3 - both decreased BMP: WNL except hyperglycemic 110, hyperchloremic 110, decrease Ca 9.03 Cr. 49 (the abnormal labs are not of notable concern) Hospital Problems Acute hemolysis Assessment & Plan Assessment: Himanshu is a 8 yr old female with acute hemolysis secondary to brown recluse bite. The additional sequale of headaches, juandice, and abdominal pain is mostly assoicated with the recent spider bite. Plan: Problem: 1. Brown Recluse Bite with sequale Renal function is mildly decreased but improved BUN/Cr (6.8/.49). Continue to monitor for hemolysiswith a decreased H/H (7.7/23.3) Will continue to treat with PRBC if patient becomes symptomatic or if the HG is less than 7. Consult toxicology, follow per recs Continue with MIVF Regular Diet Vitals q4h Benadryl PRN itching Nexium 20mg q12h H&H panel AM: BMP +Ca, CK, LDH ( last lab draw on Monday, then D/C these) Cynthia Mahajan MD * Arjun Noonan - 12/28/2013 11:55 AM CDT Images from the original note were not included. Pediatric Medical Student Daily Progress Note Himanshu Damon 12/28/2013 11:55 AM Hospital Day: 4 Clinical Course Himanshu is a 8 yo female who presented to ED with jaundice, most noticeable in the face and sclera. Patient is currently s/p presumed brown recluse spider bite 13 days ago. Patient was followed previously as an inpatient from 12/20-12/22, with discharge following improvement of pain, rash, and itching on Clindamycin and Benadryl. Upon readmission, patient was experiencing acute hemolysis with Hgb of 8.5 g/dL and Hgb has been steady, most recently 7.7 g/dL at 0533. Overnight, Himanshu ate a substantial meal of chicken and cereal. She complained of 7-9/10 BL lower abdominal pain after these meals which was not relieved by tylenol. This morning, patient still was experiencing significant discomfort and was less active than usual. No RAMOS/fevers/SOB/lightheadedness reported. Mother was informed and updated about current plan and continues to show appropriate concern for her daughter. Mother and family were updated about US results at 1227. Himanshu had just finished home foods and reported that her abdominal pain was gone at this time. Objective BP 94/40 Pulse 96 Temp(Src) 98.6 ??F Resp 16 Wt 36.4 kg (80 lb 4 oz) 12/27 0700 - 12/28 0659 In: 3374 [P.O.:480; I.V.:2894] Out: - Exam: General: non-toxic, alert, in moderate distress Head: normocephalic, atraumatic Eyes: sclera and conjunctiva clear, EOMI and PERRL, lids normal Cardiovascular: regular rate and rhythm, normal S1 and S2, no murmurs Chest: breath sounds symmetrical without rales or wheezes Abdomen: soft, tender, non-distended, no hepatosplenomegaly or masses and normal bowel sounds Lab/Other Information 12/28/2013 5:33 AM - Taylor Watkins Component Results Component Value Range & Units Status Hgb 7.7 (LL) 11.5-15.5 gm/dL Final HCT 23.3 (LL) 35.0-45.0 % Final 12/28/2013 6:01 AM - Afia Solis Component Results Component Value Range & Units Status Glucose 110 (H) 70-105 mg/dL Final Sodium 142 136-145 mmol/L Final Potassium 4.1 3.5-5.1 mmol/L Final Chloride 110 (H) 98-107 mmol/L Final CO2 23 20-28 mmol/L Final Calcium 9.03 (L) 9.12-10.48 mg/dL Final Anion Gap 9 5-20 mmol/L Final BUN 6.8 6.7-19.6 mg/dL Final Creatinine 0.49 (L) 0.53-0.80 mg/dL Final Imaging Abdominal Sonogram 12/28/2013 9:34 AM Impression: Scattered lymph nodes in a small amount of free fluid in the right lower quadrant. No sonographic evidence of appendicitis. Hospital Problems Acute hemolysis, presumed brown recluse envenomation Assessment: Himanshu is a 8 yo female who presented to ED with jaundice and ongoing hemolysis with hemoglobin currently stable at 7.7. Patient had significant abdominal pain overnight which was associated with a large meal. There was some concern for underlying GI lesions, specifically cholecystitis. Abdominal US showed nothing concerning. Current BUN/Creatinine ratio 14:1, no ongoingsigns of kidney dysfunction. Pediatric toxicology consulted and onboard with current plan of care. Plan: -Monitor H/H q12hr -Transfuse with 10 ml/kg packed RBCs if Hgb<7.0 and patient symptomatic -mIVF D5/HNS @ 120 ml/hr -Benadryl 25 mg q4h PRN for itching/headache -Regular diet, encourage PO fluids -Vitals q4h, monitor closely for hypotension or fever Arjun Noonan Medical Student Associated attestation - Lexy Worrell MD - 12/28/2013 9:48 PM CDT I have read and reviewed medical student's note as part of the medical teaching. Refer to attending's note for full documentation and plan of care. * Lexy Worrell MD - 12/28/2013 11:45 AM CDT Images from the original note were not included. Pediatric Attending Daily Progress Note 12/28/2013 11:45 AM Hospital Day: 4 I have seen Adisyn on rounds and have reviewed the findings with the resident. My findings (wolf elements and supplemental information) are as follows: Clinical Course Headaches is better controlled; Did eat well but complained of abdominal pain afterwards. No dizziness. Exam: BP 94/40 Pulse 96 Temp(Src) 98.6 ??F Resp 16 Wt 36.4 kg (80 lb 4 oz) General: Awake, alert, in no distress, cooperative. HEENT: PERRL, nares clear, oropharynx benign, MMM, mild icteric sclerae. Neck: soft, supple , no LAD Heart: RRR, no murmurs. Chest: CTA bilaterally. Abdomen: soft, NT, ND, Regular bowel sounds. Extremities x 4: MAEW, no deformities; strong distal pulses Skin: warm, dry with no rashes. Neuro: normal non focal exam. Lab/Other Information H/H: 7.7/23,3 Hospital Problems 1. Brown Recluse bite 2. New onset of Jaundice-> hemolysis : STABLE But not resolved . 3. Persistent abdominal pain: Gastritis vs mesenteric lymphadenitis vs cholecystitis Plan: -Abdominal U/S . -Consider PRBC transfusion if patient starts to become symptomatic. H/H q 12 hrs. -Continue current management. Discussed with mother and team during rounds this morning. See resident's note of 12/28/2013 for further details. Lexy Worrell MD * Michaelle Christian RN - 12/28/2013 8:50 AM CDT Problem: Pain/Discomfort Goal: Patient exhibits reduced pain/discomfort as evidenced by pain scores Outcome: Ongoing Ultrasound today for continued abd pain Goal: Patient/family demonstrates knowledge of comfort/pain management plan Outcome: Ongoing Problem: Hemodynamic Status Goal: Patient demonstrates hemodynamic stability. Outcome: Ongoing Goal: Heart rate and blood presure are normal for age Outcome: Ongoing Goal: Stable fluid balance within limits for physiological condition Outcome: Ongoing IV fluids decreased; will encourage po intake and monitor UOP Goal: Mental status within normal limits for patient Outcome: Ongoing Goal: Lung sounds clear or within normal limits for patient Outcome: Ongoing Goal: Patient/Family demonstrate knowledge of disease process/meds/interventions Outcome: Ongoing Problem: Safety/Fall Precautions Low H/H with c/o dizziness Goal: Patient will remain free of physical injury Adisyn will call for assistance for ambulation Outcome: Ongoing Adisyn is compliant with calling for assistance when ambulating Goal: Patient will be provided with an age appropriate safe environment Adisyn will wear nonskid socks when out of bed; staff will maintain safe environment with side rails up x2 and call light in reach. Outcome: Ongoing Adisyn is compliant with nonskid footware * Cynthia Mahajan MD - 12/27/2013 2:13 PM CDT Images from the original note were not included. Pediatric Resident Daily Progress Note Himanshu Damon 12/27/2013 2:13 PM Hospital Day: 3 Clinical Course Himanshu had an eventful day. She began the day with headaches, abdominal pain and orthostatic changes in blood pressure to 88/ 40. She was pale and lethargic in bed. She had limited PO intake with a few sips of clear liquid but otherwise no PO intake. The benadryl and tylenol did not help her headache or abdominal pain. In the afternoon she Had eaten pancakes and was no longer pale but more lively with activity. She was able to walk around. Mother states that this pattern of worst at night and ain the morning with improvement during the day continues to happen for the last several days while in the hospital. Objective BP 104/64 Pulse 102 Temp(Src) 98 ??F Resp 18 Wt 36.4 kg (80 lb 4 oz) 12/26 0700 - 12/27 0659 In: 3499 [P.O.:660; I.V.:2839] Out: - Exam: General - Patient is well developed, well nourished, and in no distress. Patient is active. Patientis alert. Patient is talkative. Eyes - EOM normal. Eyelids normal. PERRL. No scleral icterus. Ears - Ear canal normal. External ear normal. TM normal. Skin - Capillary refill: brisk Diffuse slightly erythematous macular papular rash on extremities, 1cm area of necrosis on R inner knee with no fluctuance, swelling, or surrounding erythema/ecchymosis, no drainage from wound Neck - Supple. No lymphadenopathy. No tenderness. Cardiovascular - Regular rate and rhythm No murmur present. Right Radial Pulse: normal Right DP Pulse: normal Left Radial Pulse: normal Left DP Pulse: normal Chest - Clear to auscultation bilaterally normal respiratory effort. Abdomen - Soft. Normal bowel sounds. No distention present. Tenderness present.epigastric and RLQ tenderness No hepatosplenomegaly present. Diffuse tenderness, without rebound tenderness or guarding tenderness around bite on R inner knee Neurological - Patient is awake and alert. Headache localized to the bilateral temporals and the bilateral TMJ area. Lab/Other Information Am H& H: 7.5/22.6 - both decreased BMP: WNL except hyperglycemic 112, hyperchloremic 110, BUN/Cr 5.7/.47 decreased Hospital Problems Acute hemolysis Assessment & Plan Assessment: Himanshu is a 8 yr old female with acute hemolysis secondary to brown recluse bite. The additional sequale of headaches, juandice, and abdominal pain is mostly assoicated with the recent spider bite. Plan: Problem: 1. Brown Recluse Bite with sequale Renal function is mildly decreased but improved BUN/Cr (5.7/.47). Continue to monitor for hemolysiswith a decreased H/H (7.5/22.6) Will continue to treat with PRBC if patient becomes symptomatic or if the HG is less than 7. Consult toxicology, follow per recs Continue with MIVF Regular Diet Vitals q4h Benadryl PRN itching Nexium 20mg q12h H&H panel AM: BMP +Ca, CK, LDH Cynthia Mahajan MD * Paco Currie, - 12/27/2013 1:09 PM CDT Himanshu Damon is a 8 y.o. female who presents with jaundice. The patient was admitted 12/20-12/22 for a presumed brown recluse bite on her R leg and diffuse rash. She has been improving since discharge but today mom noticed that her eyes were yellow so she called Dr. Joyner who instructed them to come to the ED. Spider bite happened on 12/15, her leg is still sore but she can bear weight on it now, bite area looks much improved with no redness or swelling. Her rash is still present onher extremities but has diminished in color, and she still has occasional itching that is relieved by benadryl. She also complains of periumbilical pain that is constant since the bite occurred, stabbing, and cramping, 6-7/10 in severity, and tender. Also with intermittent headaches since the bite occurred. No fevers, fatigue, weakness, joint pains, diarrhea or vomiting. Appetite and urine outputhave been less than usual, mom thinks urine looks dark, no dysuria. * Michaelle Christian RN - 12/27/2013 10:00 AM CDT Problem: Pain/Discomfort Goal: Patient exhibits reduced pain/discomfort as evidenced by pain scores Outcome: Ongoing Chipin continues to c/o pain 7/10 without relief. Pain medications changed today. Will continue to monitor Goal: Patient/family demonstrates knowledge of comfort/pain management plan Outcome: Ongoing Problem: Hemodynamic Status Goal: Patient demonstrates hemodynamic stability. Outcome: Variance - See Flowsheet Documentation Himanshu has complained of ramos without relief and started with c/o dizziness last night. H/H labs every 12 hours, with slight decrease since last labs obtained. Goal: Heart rate and blood presure are normal for age Outcome: Variance - See Flowsheet Documentation BP low this am with slightly elevated HR. Goal: Stable fluid balance within limits for physiological condition Outcome: Ongoing Himanshu is on maintenance IV fluids; she has minimal po intake Goal: Mental status within normal limits for patient Outcome: Ongoing Goal: Lung sounds clear or within normal limits for patient Outcome: Ongoing Goal: Patient/Family demonstrate knowledge of disease process/meds/interventions Outcome: Ongoing Problem: Safety/Fall Precautions Low H/H with c/o dizziness Goal: Patient will remain free of physical injury Adyifan will call for assistance for ambulation Outcome: Ongoing Himanshu uses assistance of family to ambulate to bathroom Goal: Patient will be provided with an age appropriate safe environment Adyifan will wear nonskid socks when out of bed; staff will maintain safe environment with side rails up x2 and call light in reach. Outcome: Ongoing Himanshu is compliant with footware * Arjun Noonan - 12/27/2013 9:27 AM CDT Images from the original note were not included. Pediatric Medical Student Daily Progress Note Himanshu Damon 12/27/2013 9:27 AM Hospital Day: 3 Clinical Course Himanshu is a 8 yo female who presented to ED with jaundice, most noticeable in the face and sclera. Patient is currently s/p presumed brown recluse spider bite 11 days ago. Patient was followed previously as an inpatient from 12/20-12/22, with discharge following improvement of pain, rash, and itching on Clindamycin and Benadryl. Upon readmission, patient was experiencing acute hemolysis with Hgb of 8.5 g/dL and Hgb has been trending down, most recently 7.5 g/dL at 0624. Overnight, Himanshu was active, ambulating, and in no apparent distress until around 1999 when she complained of RAMOS, abdominal pain, and loss of appetite. Patient also experienced noticeable lightheadedness after walking around the floor for a few minutes. Tylenol did not control pain well overnight and patient was less active than usual in the morning. Patient was more alert and conversant in the afternoon with multiple family members in the room. Patient did walk to the playroom but felt weak and asked to go back to her room. Mother is actively aware of the situation and has spoken with Dr. Worrell and is expecting to see Dr. Joyner this afternoon as well. Objective BP 86/40 Pulse 108 Temp(Src) 98.2 ??F Resp 20 Wt 36.4 kg (80 lb 4 oz) 12/26 0700 - 12/27 0659 In: 3499 [P.O.:660; I.V.:2839] Out: - Exam: General: alert, in mild distress Head: normocephalic, atraumatic Eyes: sclera and conjunctiva clear, EOMI and PERRL, lids normal Cardiovascular: regular rate and rhythm, normal S1 and S2, no murmurs Chest: breath sounds symmetrical without rales or wheezes Abdomen: soft, tender to palpation in BLLQ, non-distended and no hepatosplenomegaly or masses, BS active Skin: no rashes Neuro: alert, oriented, normal speech, no focal findings or movement disorder noted Lab/Other Information 12/27/2013 7:58 AM - Kaylin Diaz Component Results: HGB HCT Component Value Range & Units Status Hgb 7.5 (LL) 11.5-15.5 gm/dL Final HCT 22.6 (LL) 35.0-45.0 % Final 12/27/2013 7:24 AM - Jessika Em Component Results: BMP Component Value Range & Units Status Glucose 112 (H) 70-105 mg/dL Final Sodium 141 136-145 mmol/L Final Potassium 4.4 3.5-5.1 mmol/L Final Chloride 110 (H) 98-107 mmol/L Final CO2 23 20-28 mmol/L Final Calcium 9.15 9.12-10.48 mg/dL Final Anion Gap 8 5-20 mmol/L Final BUN 5.7 (L) 6.7-19.6 mg/dL Final Creatinine 0.47 (L) 0.53-0.80 mg/dL Final Hospital Problems Acute hemolysis, presumed brown recluse envenomation Assessment: Himanshu is a 8 yo female who presented to ED with jaundice and ongoing hemolysis with hemoglobin stable at 7.5. Patient had some concerning symptoms overnight but is improvedon most recent exam. Patient still complains of mild RAMOS and abdominal pain despite addition on Motrin. Current BUN/Creatinine ratio 12:1, no ongoing signs of kidney dysfunction. Pediatric toxicology consulted and onboard with current plan of care. Plan: -Monitor H/H q12hr -Transfuse with 10 ml/kg packed RBCs if Hgb<7.0 and patient symptomatic -mIVF D5/HNS @ 120 ml/hr -Benadryl 25 mg q4h PRN for itching/headache -Regular diet, encourage PO fluids -Vitals q4h, monitor closely for hypotension or fever Arjun Shaye Saran Medical Student Associated attestation - Lexy Worrell MD - 12/28/2013 9:48 PM CDT I have read and reviewed medical student's note as part of the medical teaching. Refer to attending's note for full documentation and plan of care. * Lexy Worrell MD - 12/27/2013 6:09 AM CDT Images from the original note were not included. Pediatric Attending Daily Progress Note 12/27/2013 6:09 AM Hospital Day: 3 I have seen Adisyn on rounds and have reviewed the findings with the resident. My findings (wolf elements and supplemental information) are as follows: Clinical Course Had worsening headaches, felt slightly lightheaded but better when lying down; intermittent abdominal pain but still eating and drinking. Exam: BP 100/60 Pulse 88 Temp(Src) 96.8 ??F Resp 20 Wt 36.4 kg (80 lb 4 oz) General: Asleep, but easily arousable., in no distress, cooperative. HEENT: PERRL, nares clear, oropharynx benign, MMM, conjunctivae are well injected, less icteric sclerae. Neck: soft, supple , no LAD Heart: RRR, no murmurs. Chest: CTA bilaterally. Abdomen: soft, NT, ND, Regular bowel sounds. Extremities x 4: MAEW, no deformities; strong distal pulses Skin: warm, dry with no rashes. Neuro: normal non focal exam. Lab/Other Information H/H: 7.8/22.8 Hospital Problems 1. Brown Recluse bite 2. New onset of Jaundice-> hemolysis : STABLE But not improving yet. 3. Gastritis: most likely from acute stress Plan: -Continue monitoring for any new symptoms: dizziness, pallor, tachycardia -Consider PRBC transfusion if patient starts to become symptomatic. H/H q 12 hrs. -Toxicology : DR Joyner is aware of the new complaints but since patient remained hemodynamically stable will defre the PRBC for now. Discussed with mother in details the current plan of care and she seemed more agreeable with it. See resident's note of 12/27/2013 for further details. Lexy Worrell MD * Cynthia Mahajan MD - 12/26/2013 5:10 PM CDT Images from the original note were not included. Pediatric Resident Daily Progress Note Himanshu Damon 12/26/2013 5:10 PM Hospital Day: 2 Clinical Course Himanshu did well overnight. She had abdominal pain with continuous headache tolerated with Tylenol. The itching was tolerated with Benadryl. Pt appetite is poor and it is not imporving Objective BP 100/50 Pulse 80 Temp(Src) 98.8 ??F Resp 20 Wt 36.4 kg (80 lb 4 oz) 12/25 1500 - 12/26 1459 In: 2670 [P.O.:240; I.V.:2430] Out: - Exam: General: well appearing, lethargic, in no acute distress Eyes: Mild sclera icterus otherwise, sclera and conjunctiva clear, EOMI and PERRL, lids normal Cardiovascular: regular rate and rhythm, normal S1 and S2, no murmurs Chest: breath sounds symmetrical without rales or wheezes Abdomen: soft, non-tender, non-distended and no hepatosplenomegaly or masses Skin: no rashes, mild juandice appearance Lab/Other Information AM H& H: 7.5/ 21.9 PM H & H: 7.8/22.8 Decreased BUN/Cr: 6.2/.45 Hospital Problems Himanshu is a 8 yr old female with a recent hx of a born recluse bite. Patient had been readmitted for jaundice, abdominal pain, and headache. Problem: 1. Brown Recluse Bite with sequale Himanshu sx of hemolysis and jaundice, headaches, and abdominal pain are most likely attributed to the Brown recluse spider bite plan is to monitor closely and hyrdate! Consult toxicology, follow per recs Continue with MIVF Regular Diet Vitals q8h Benadryl PRN itching Nexium 20mg q12h H&H panel AM: BMP +Ca, CK, LDH Hemolysis is improving continue to monitor kidney function with decrease BUN/Cr function. Will not transfuse until symptomatic or if the patient has a Hg less than 7. Cynthia Mahajan MD * Arjun Noonan - 12/26/2013 2:49 PM CDT Images from the original note were not included. Pediatric Medical Student Daily Progress Note Himanshu Damon 12/26/2013 2:50 PM Hospital Day: 2 Clinical Course Himanshu is a 8 yo female who presented to ED with jaundice, most noticeable in the face and sclera. Patient is currently s/p presumed brown recluse spider bite 11 days ago. Patient was followed previously as an inpatient from 12/20-12/22, with discharge following improvement of pain, rash, and itching on Clindamycin and Benadryl. Upon readmission, patient experienced acute hemolysis with Hgb of 8.5 g/dL and has been trending down. Patient is currently in good spirits and active in her room. Patient's mother notes improvement in signs of jaundice and notes that patient has not complained of RAMOS or abdominal pain recently. Patient no longer reports pain on extension of right leg. Patient also reports normal BM and good UOP. Patient denies lightheadedness, SOB, or chest pain. Objective BP 92/42 Pulse 82 Temp(Src) 97.2 ??F Resp 18 Wt 36.4 kg (80 lb 4 oz) 12/25 0700 - 12/26 0659 In: 3089 [P.O.:360; I.V.:2729] Out: - Exam: General: well appearing, non-toxic, alert, smiling, active, talkative Head: normocephalic, atraumatic Eyes: sclera and conjunctiva clear, EOMI and PERRL, lids normal Cardiovascular: regular rate and rhythm, normal S1 and S2, no murmurs Chest: breath sounds symmetrical without rales or wheezes Abdomen: soft, non-distended, no hepatosplenomegaly or masses, normal bowel sounds and mild tenderness in BLLQ Skin: no rashes, no erythema around original spider bite. Lab/Other Information 12/26/2013 5:54 AM - Florence Berg Component Results Component Value Range & Units Status Hgb 7.5 (LL) 11.5-15.5 gm/dL Final HCT 21.9 (LL) 35.0-45.0 % Final 12/26/2013 6:12 AM - Afia Solis Component Results Component Value Range & Units Status Glucose 121 (H) 70-105 mg/dL Final Sodium 141 136-145 mmol/L Final Potassium 4.5 3.5-5.1 mmol/L Final Chloride 111 (H) 98-107 mmol/L Final CO2 21 20-28 mmol/L Final Calcium 9.45 9.12-10.48 mg/dL Final Anion Gap 9 5-20 mmol/L Final BUN 6.2 (L) 6.7-19.6 mg/dL Final Creatinine 0.45 (L) 0.53-0.80 mg/dL Final eGFR MDRD mL/min/1.73m2 Final Hospital Problems Acute hemolysis Assessment: Himanshu is a 8 yo female who presented to ED with jaundice and ongoing hemolysis with hemoglobin now at 7.5. Patient is non- symptomatic on exam and complains of mild intermittent RAMOS and abdominal pain. Current BUN/Creatinine ratio 14:1, no ongoing signs of kidney dysfunction. Pediatric toxicology consulted and onboard with current plan of care. Plan: -Monitor H/H q12hr -Transfuse with 10 ml/kg packed RBCs if Hgb<7.0 and patient symptomatic -mIVF D5/HNS @ 120 ml/hr -Benadryl 25 mg q4h PRN for itching -Regular diet, encourage PO fluids -Vitals q8h Arjun Noonan Medical Student Associated attestation - Lexy Worrell MD - 12/28/2013 9:48 PM CDT I have read and reviewed medical student's note as part of the medical teaching. Refer to attending's note for full documentation and plan of care. * Lexy Worrell MD - 12/26/2013 7:53 AM CDT Images from the original note were not included. Pediatric Attending Daily Progress Note 12/26/2013 7:53 AM Hospital Day: 2 I have seen Himanshu on rounds and have reviewed the findings with the resident. My findings (wolf elements and supplemental information) are as follows: Clinical Course Remained hemodynamically stable. Did not get transfused yesterday since she was asymptomatic, but continued to be closely monitored. Exam: BP 92/40 Pulse 88 Temp(Src) 97.2 ??F Resp 18 Wt 36.4 kg (80 lb 4 oz) General: Awake, alert, in no distress, more active today; HEENT: PERRL, mildly icteric sclera, conjunctivae slightly pale, nares clear, oropharynx benign, MMM. Neck: soft, supple , no LAD Heart: RRR, no murmurs. Chest: CTA bilaterally. Abdomen: soft, NT, ND, Regular bowel sounds. Extremities x 4: MAEW, no deformities; strong distal pulses Skin: warm, dry with no rashes. Neuro: normal non focal exam. Lab/Other Information 12/26: BMP: WNL h/H: 7.5/ 21.9 Hospital Problems 1. Brown Recluse bite 2. New onset of Jaundice-> hemolysis with no signs of anemia yet. No signs of cholestasis 3. Gastritis: most likely from acute stress Plan: -Continue monitoring for any new symptoms: dizziness, pallor, tachycardia -Consider PRBC transfusion if patient starts to become symptomatic. H/H q 12 hrs. -Toxicology : DR Joyner consulted. Discussed with mother and team during rounds this morning. See resident's note of 12/26/2013 for further details. Lexy Worrell MD * Do Cummins RN - 12/25/2013 6:29 PM CDT [employer] ([phone]): Pt has done well today. H&H decreased with 1600 labs, plan to transfuse tonight. Type and cross sent this evening. * Ignacio Moon MD - 12/25/2013 6:19 PM CDT Images from the original note were not included. Pediatric Resident Daily Progress Note Himanshu Damon 12/25/2013 6:19 PM Hospital Day: 1 Clinical Course 8 yo female with ongoing hemolysis. Hemoglobin and hematocrit from 1600h today showed Hbg of 7.5 and Hct of 22.4. As per plan, will transfuse 1 unit of whole blood. Spoke with mother at 1810, consent obtained after explanation of procedure and risks. Objective BP 92/40 Pulse 74 Temp(Src) 99 ??F Resp 20 Wt 36.4 kg (80 lb 4 oz) 12/24 1499 - 12/25 1459 In: 1825 [P.O.:595; I.V.:1230] Out: - Exam: Not performed at this time Lab/Other Information Hbg - 7.5 Hct - 22.4 Hospital Problems Acute hemolysis Assessment & Plan Assessment: Ongoing hemolysis with hemoglobin now at 7.5 Plan: Transfusion of one unit red blood cells. Ignacio Moon MD * Cynthia Mahajan MD - 12/25/2013 3:49 PM CDT Images from the original note were not included. Pediatric Resident Daily Progress Note Himanshu Paganham 12/25/2013 3:49 PM Hospital Day: 1 Clinical Course Himanshu had some diffuse abdominal pain but No pain medication needed. Headache is still present butnot as severe as last admission and it's tolerated with Tylenol and Ibuprofen. Himanshu mother statesher eyes appear juandice. Otherwise the patient has a great appetite. Objective BP 98/46 Pulse 84 Temp(Src) 99.2 ??F Resp 20 Wt 36.4 kg (80 lb 4 oz) 12/24 1499 - 12/25 1459 In: 1585 [P.O.:355; I.V.:1230] Out: - Exam: General: well appearing, non-toxic, alert, in no acute distress Eyes: sclera and conjunctiva clear, EOMI and PERRL, lids normal Cardiovascular: regular rate and rhythm, normal S1 and S2, no murmurs Chest: breath sounds symmetrical without rales or wheezes Abdomen: soft, non-distended, mild diffuse tenderness and no hepatosplenomegaly or masses Skin: no rashes, Brown recluse bite on lateral right knee with a pen size necrotic lesion Lab/Other Information 12/24 @ 2139: H& H 8.6/ 25.3 0703 H&H: 823.3 MCV 84.1 WNL BMP unremarkable ALT/AST: 64/57 WNL Bili Total: 3.7 Bili conj direct : .40 UA: 1+ blood, bacteria, amorphous phosphate crystals Hospital Problems No new assessment & plan notes have been filed under this hospital service since the last note was generated. Problem: 1. Brown Recluse Bite with sequale Adisyn sx of hemolysis and jaundice, headaches, and abdominal pain are most likely attributed to the Brown recluse spider bite plan is to monitor closely and hyrdate! Continue with MIVF Regular Diet Vitals q8h Benadryl PRN itching Nexium 20mg Labs At 4pm: Ret Count, H & H Panel, BMP + Ca, CK, LDH Repeat H&H q12h Cynthia Mahajan MD * Pelon Jang - 12/25/2013 2:46 PM CDT Admission medication reconciliation was performed by Pelon Jang 12/25/2013 2:07 PM The information was obtained from family The following problems were found while performing medication reconciliation *Omitted Medications - hydrocodone/APAP 5/325mg tab- Give 0.5tab PO Q4H RN RAMOS (Mom gave 0.5tab QHS for RAMOS) - acetaminophen 500mg PO Q4H PRN RAMOS- Daughter was having upset stomach (from IBU only) so Mom started alternating between APAP & IBU for RAMOS during the daytime The home medications were compared with the inpatient medications. The following discrepancies werefound: *Home Med omitted from Inpatient Med List - clindamycin 150mg cap- Give 2cap (300mg) PO TID x 5days (started 12/22) *Talked with [facility], they are not continuing clinda inpatient because of unnecessary use. Please contact the pharmacy department at [phone] if you have any questions or concerns. Thank you, Pelon Jang * Arjun Noonan - 12/25/2013 2:40 PM CDT Images from the original note were not included. Pediatric Medical Student Daily Progress Note Himanshu Damon 12/25/2013 2:41 PM Hospital Day: 1 Clinical Course Himanshu is a 8 yo female who presented to ED with jaundice, most noticeable in the face and sclera. Patient is currently s/p presumed brown recluse spider bite 10 days ago. Patient was followed previously as an inpatient from 12/20-12/22, with discharge following improvement of pain, rash, and itching on Clindamycin and Benadryl. Per mother, patient was relatively hypoactive following discharge. Patient was discharged with Hgb of 10.9, most recently 8.0 g/dL. Patient still endorses some discomfort around the original wound and prefers not to extend her right leg fully. Patient alsoendorses mild BLLQ pain, described as stabbing and cramping. Patient endorses no nausea/vomiting and shows moderate appetite. Patient slept well overnight. Mother shows appropriate concern about patient's well-being and agrees with plan to monitor H/H closely. Objective BP 98/46 Pulse 84 Temp(Src) 99.2 ??F Resp 20 Wt 36.4 kg (80 lb 4 oz) 12/24 0700 - 12/25 0659 In: 698 [P.O.:355; I.V.:343] Out: - Exam: General: well appearing, smiling, active Head: normocephalic, atraumatic Cardiovascular: regular rate and rhythm, normal S1 and S2, no murmurs Chest: breath sounds symmetrical without rales or wheezes Abdomen: soft, non-distended and mild diffuse tenderness Skin: Single presumed spider bite on posterior right leg healing well with no erythema/swelling. Lab/Other Information 12/25/2013 7:03 AM Component Results Component Value Range & Units Status Hgb 8.0 (LL) 11.5-15.5 gm/dL Final HCT 23.3 (LL) 35.0-45.0 % Final Hospital Problems Jaundice Assessment: Himanshu is a 8 yo female with history of presumed brown recluse bite admitted for evaluation of jaundice and scleral icterus. Total bili is elevated at 3.7, indirect bili 3.3, direct bilinormal. H/H at 0703 was 8.0/23.3, trending down. BUN/Creatine ratio 31:1. Very mild signs of jaundice noted on exam. Brown recluse evenomation (sphingomyelinase D) suspected as cause of patient's current hemolysis, explaining elevated indirect bilirubin and signs of jaundice. Plan: -Monitor H/H q8hr -Transfuse with 10 ml/kg packed RBCs if Hgb<8.0 -mIVF D5/HNS @ 75ml/hr -Benadryl 25 mg q4h PRN for itching -Regular diet -Vitals q8h Arjun Noonan Medical Student Associated attestation - Lexy Worrell MD - 12/26/2013 11:01 AM CDT I have read and reviewed medical student's note as part of the medical teaching. Refer to attending's note for full documentation and plan of care. * Rochelle Ford - 12/25/2013 1:15 PM CDT CHILDLIFE ASSESSMENT Himanshu Damon [id number] Objective 1. Objective Information - Introduction: Child Life Services has met patient;Family present at timeof contact;Informed patient/family about Child Life Services;Developmentally appropriate materials provided;Comfort measures offered 2. Diversional/Play Activities: Bedside activities provided;Diversional activities provided General Information States reason for hospitalization: Yes (comment) Assessment Feelings: No anxiety/fear expressed at this time. Age Appropriate Skills: Appears to exhibit age - appropriate skills Assessment: Patient adjusting well to hospitalization at this time. Plan Child Life plan of care: Patient will be a primary followed by this Voice Writing Reporter.;Provide developmentally appropriate therapeutic activities.;Provide relaxation, distraction and soothing techniques.;Continue to assess patient needs for changes.;Encourage patient to attend playroom/teen activity.;Encourage peer interactions (if age-appropriate).;Provide opportunity for expression of emotions.;Provide emotional support for family. Rochelle Shira Logan 12/25/2013 1:15 PM * Yessenia Doll RN - 12/25/2013 2:36 AM CDT Problem: Pain/Discomfort Goal: Patient exhibits reduced pain/discomfort as evidenced by pain scores Outcome: Ongoing History of abdominal pain Prn tylenol * Yessenia Doll RN - 12/25/2013 2:36 AM CDT Problem: Hemodynamic Status Goal: Patient demonstrates hemodynamic stability. Monitor blood levels every 8 hours Monitor fo dizziness and tachy Low h and h * Lexy Worrell MD - 12/25/2013 12:09 AM CDT Himanshu Damon is a 8 y.o. female who presents with jaundice. The patient was admitted 12/20-12/22 for a presumed brown recluse bite on her R leg and diffuse rash. She has been improving since discharge but today mom noticed that her eyes were yellow so she called Dr. Joyner who instructed them to come to the ED. Spider bite happened on 12/15, her leg is still sore but she can bear weight on it now, bite area looks much improved with no redness or swelling. Her rash is still present onher extremities but has diminished in color, and she still has occasional itching that is relieved by benadryl. She also complains of periumbilical pain that is constant since the bite occurred, stabbing, and cramping, 6-7/10 in severity, and tender. Also with intermittent headaches since the bite occurred. No fevers, fatigue, weakness, joint pains, diarrhea or vomiting. Appetite and urine outputhave been less than usual, mom thinks urine looks dark, no dysuria. * Linda Ahuja, DO - 12/24/2013 11:56 PM CDT Supervisory Note Briefly, Himanshu Damon is a 8 y.o. female with recent admission 12/20-12/22 due to concern for brown recluse bite who returned to the ED tonight with scleral icterus and jaundice. Patient initially with right leg pain and tenderness followed by full body rash. She was thought to have a possible brown recluse bite and admitted for further evaluation and placed on IV Clindamycin. She wasdischarged after resolution of rash and improved pain. Since returning home patient has noticed herskin and eyes have started to look yellow. She also complains of abdominal pain and headache. In the ED patient had a CMP that was significant for a mildly elevated AST and elevated total bilirubin with normal direct. Her CBC was significant for a 2.3g drop in hemoglobin since discharge. Labs: H/H: 8.6/25.3 ( Down from 10.9/32.1 on 12/22) CMP: AST 57, Tbili 3.7, Dbili wnl UA: 1+ blood, 1.0 Urobilinogen, 1+ bacteria Temp: 98.6 ??F (12/25 2043) Pulse: 100 (12/25 2043) Resp: 20 (12/25 2043) BP: 105/61 mmHg (12/25 2043) General: alert, non-toxic, well-hydrated, in no acute distress, smiling, talkative Head: atraumatic, normocephalic, mild scleral icterus Nose: clear Oropharynx: moist mucous membranes Cardiovascular: regular rate and rhythm, no murmur, radial pulses 2+ bilaterally, cap refill <2 seconds Chest: breath sounds symmetrical without rales or wheezes, good air movement, relaxed breathing without tachypnea or accessory muscle use Abdomen: soft, mild epigastric tenderness, non-distended, no hepatosplenomegaly, normal bowel sounds. Skin: warm and dry, no rashes, mild facial jaundice Extremities: no clubbing, cyanosis or edema, healed scab to posterior right leg Neuro: alert, no focal findings or movement disorder noted, moves all extremities equally A/P: Himanshu Damon is a 8 y.o. female with recent admission for brown recluse spider bite who presents with concern for jaundice and hemolysis from envenomation. H/H drop of 2.3g over 2 days. Will admit for further monitoring. Place on MIVF. H/H every 12 hours. Type and screen sent from ED. Regular diet. Please see internal audit director H&P for further details. Linda Ahuja DO PGY3 documented in this encounter H&P Notes * Lexy Worrell MD - 12/25/2013 8:54 AM CDT Images from the original note were not included. Attending Physician: Lexy Worrell MD Office 12/25/2013 8:54 AM Pediatric Attending Admission Note Admit Date: 12/24/2013 7:21 PM I have seen Himanshu on rounds and have reviewed the findings with the resident. My findings (wolf elements and supplemental information) are as follows: Chief Complaint History of Present Illness Himanshu Damon is a 8 y.o. female who presents with jaundice. The patient was admitted 12/20-12/22 for a presumed brown recluse bite on her R leg and diffuse rash.She has been improving since discharge but on the day of admission, mom noticed that her eyes were yellow so she was instructed by Dr Joyner to return to the hospital for observation and further workup. Patient continues to improve per mother's report; her leg is still mildly sore but she can bear weight on it now, bite area looks much improved with no redness or swelling. Her rash is fading but still has occasional itching that is relieved by benadryl. She also complains of periumbilical pain that is cramping, worse after eating but not interfering with her appetite. + intermittent headaches , No fevers, fatigue, weakness, joint pains, diarrhea or vomiting. Exam BP 98/54 Pulse 72 Temp(Src) 96.6 ??F Resp 20 Wt 36.4 kg (80 lb 4 oz) General: Awake, alert, in no distress, cooperative. HEENT: PERRL, nares clear, oropharynx benign, MMM. Neck: soft, supple , no LAD Heart: RRR, no murmurs. Chest: CTA bilaterally. Abdomen: soft, mildly tender diffusely with no guarding, ND, Regular bowel sounds. Extremities x 4: MAEW, no deformities; strong distal pulses Skin: warm, dry with no rashes Right lateral leg scabbed 0.5 cm lesion With no redness, mildly tender to touch. No skin color changes. Neuro: normal non focal exam. Lab/Other Information Admission labs: CBC: anemia 8.6/25.3 CMP: mild elevated AST 57 / Total bili: 3.7 UA: 1+blood 12/25: h/H: 11/16.3 Hospital Problems 1. Brown Recluse bite 2. New onset of Jaundice-> hemolysis with no signs of anemia yet. No signs of cholestasis 3. Gastritis: most likely from acute stress Plan: -Monitor closely symptoms: dizziness, pallor, tachycardia -Consider PRBC transfusion if Hemoglobin less than 7.5 or if patient starts to become symptmatic. -Monitor Renal function closely.Will check CK; Continue IVF and start PPI Discussed with mother and team during rounds this morning. See resident's H&P for further details. Lexy Worrell MD CC: Nohemy June [address] [place] [phone] * Chantel Powers DO - 12/25/2013 4:08 AM CDT Images from the original note were not included. Pediatric Resident Admission Note Admit Date: 12/24/2013 7:21 PM Chief Complaint abdominal pain, headache, jaundice History of Present Illness Himanshu Damon is a 8 y.o. female who presents with jaundice. The patient was admitted 12/20-12/22 for a presumed brown recluse bite on her R leg and diffuse rash. She has been improving since discharge but today mom noticed that her eyes were yellow so she called Dr. Joyner who instructed them to come to the ED. Spider bite happened on 12/15, her leg is still sore but she can bear weight on it now, bite area looks much improved with no redness or swelling. Her rash is still present onher extremities but has diminished in color, and she still has occasional itching that is relieved by benadryl. She also complains of periumbilical pain that is constant since the bite occurred, stabbing, and cramping, 6-7/10 in severity, and tender. Also with intermittent headaches since the bite occurred. No fevers, fatigue, weakness, joint pains, diarrhea or vomiting. Appetite and urine outputhave been less than usual, mom thinks urine looks dark, no dysuria. Medical History Medical History: Past Medical History Diagnosis Date ??? Medical history reviewed with no changes previously healthy with no previous hospitalizations ??? Brown recluse spider bite 12/15/13 R leg, hospitalized 12/20- Surgical History: Past Surgical History Procedure Laterality Date ??? Negative surgical history ??? Tympanostomy Bilateral Social History: History Social History Narrative Lives at home with mother, step-father and brother. No sick contacts or family members with similarsymptoms. Immunizations Immunization status: stated as current, but no records available. Allergies No Known Allergies Home Medications Outpatient Prescriptions Marked as Taking for the 12/24/13 encounter (Hospital Encounter) Medication Sig ??? clindamycin (CLEOCIN) 300 MG capsule Take 1 Cap by mouth 3 times daily for 5 days. ??? ibuprofen (MOTRIN) 200 MG tablet Take 200 mg by mouth every 6 hours as needed for Pain. Review of Systems Constitutional - Negative for fatigue. Negative for fever. Negative for weight loss. ENT - Negative for congestion. Negative for rhinorrhea. Negative for sore throat. Respiratory - Negative for cough. Negative for shortness of breath. Negative for wheezing. Negativefor heart murmur. Genitourinary - Positive for decreased urine output. Negative for dysuria. Negative for frequency. Gastrointestinal - Positive for abdominal pain. Negative for constipation. Negative for diarrhea. Negative for nausea. Negative for poor appetite. Negative for vomiting. Skin - Positive for itching. Positive for pigmentation changes.Jaundice and icterisPositive for rash. Hematologic - Negative for excessive bruising. Musculoskeletal - Negative for joint pain. Positive for musculoskeletal pain.R leg behind knee around bite humberto Neurological - Negative for dizziness. Positive for headaches. Negative for weakness. Psychiatric - Negative for sleep disturbance. Physical Exam BP 98/60 Pulse 88 Temp(Src) 98 ??F Resp 20 Wt 36.4 kg (80 lb 4 oz) General - Patient is well developed, well nourished, and in no distress. Patient is active. Patientis alert. Patient is talkative. Head - Patient is atraumatic. Patient is normocephalic. Eyes - EOM normal. Eyelids normal. PERRL. Scleral icterus present. Ears - Ear canal normal. External ear normal. TM normal. Skin - Capillary refill: Brisk. Diffuse slightly erythematous macular papular rash on extremities,1cm area of necrosis on R inner knee with no fluctuance, swelling, or surrounding erythema/ecchymosis, no drainage from wound Nose - Clear. No nasal discharge. Nares patent bilaterally. Oropharynx - Dentition normal. Oropharynx clear. Moist mucous membranes. Neck - Supple. No lymphadenopathy. No tenderness. Cardiovascular - Regular rate and rhythm No murmur present. Right Radial Pulse: normal Right DP Pulse: normal Left Radial Pulse: normal Left DP Pulse: normal Chest - Clear to auscultation bilaterally normal respiratory effort. Abdomen - Soft. Normal bowel sounds. Tenderness present.epigastric and RLQ tenderness Tip of liver and spleen palpated 1cm below rib line Musculoskeletal - Tenderness present.tenderness around bite on R inner knee Neurological - Patient is awake and alert. Lab/Other Information Recent Results (from the past 24 hour(s)) CBC W AUTO DIFFERENTIAL Collection Time 12/24/13 9:33 PM Result Value Range WBC 7.6 4.5-14.5 x10^9/L RBC 3.01 (*) 4.00-5.20 x10^12/L Hgb 8.6 (*) 11.5-15.5 gm/dL HCT 25.3 (*) 35.0-45.0 % MCV 84.1 77.0-95.0 fl MCH 28.6 25.0-33.0 pg MCHC 34.0 31.0-37.0 gm/dL Plt Ct 253 100-400 x10^9/L RDW-CV 12.9 11.5-14.0 % MPV 9.2 6.0-9.5 fl Neutro 42.4 24.0-66.0 % Lymph 48.2 22.0-61.0 % Johnson 6.4 3.0-15.0 % Eos 1.7 0.0-10.0 % Baso 0.9 Immature Grans 0.4 Neutro Abs 3.22 Lymph Abs 3.66 Johnson Abs 0.49 Eosin Abs 0.13 Baso Abs 0.07 Immature Grans Abs 0.03 COMPREHENSIVE METABOLIC PANEL Collection Time 12/24/13 9:33 PM Result Value Range Glucose 108 (*) 70-105 mg/dL Sodium 138 136-145 mmol/L Potassium 4.3 3.5-5.1 mmol/L Chloride 106 98-107 mmol/L CO2 22 20-28 mmol/L Calcium 9.72 9.12-10.48 mg/dL Anion Gap 10 5-20 mmol/L BUN 17.4 6.7-19.6 mg/dL Creatinine 0.56 0.53-0.80 mg/dL eGFR MDRD eGFR MDRD AFR AMR Alk Phos 276 100-320 U/L ALT/SGPT 64 8-65 U/L AST/SGOT 57 (*) 3-35 U/L Protein Total 7.0 6.2-9.1 gm/dL Albumin 4.3 3.6-4.9 gm/dL Bili Total 3.7 (*) 0.3-1.2 mg/dL BILIRUBIN DIRECT Collection Time 12/24/13 9:33 PM Result Value Range Bili Conj Direct 0.40 0.11-0.43 mg/dL URINALYSIS ROUTINE AUTO Collection Time 12/24/13 11:26 PM Result Value Range Color UA Yellow Straw, Yellow, Dark Yellow Clarity UA Clear Specific [place] UA 1.020 1.005-1.030 pH UA 7.5 5.0-8.0 pH Protein UA Negative Negative Blood UA 1+ (*) Negative Leukocyte UA Negative Negative Nitrite UA Negative Negative Glucose UA Negative Negative Ketone UA Negative Negative Bili UA Negative Negative Urobilinogen UA 1.0 0.1-1.0 EU/dL Urine Microscopy Urine microscopy to follow URINALYSIS MICROSCOPIC ONLY Collection Time 12/24/13 11:26 PM Result Value Range RBC UA 2-5 0-2, 2-5 # /hpf WBC UA 0-2 0-2, 2-5 # /hpf Bacteria UA 1+ (*) None Seen, Trace Epithelial Cell UA 0-2 0-2, 2-5 Mucus 2+ Amorphous phosphate crystals 1+ (*) None Seen TYPE + SCREEN PANEL Collection Time 12/24/13 11:27 PM Result Value Range ABO Patient Type AB Rh Patient Type Positive Antibody Screen Negative Hospital Problems Jaundice Assessment & Plan Assessment: Himanshu is a 8yo F with history of brown recluse bite admitted for 1-day history of jaundice and scleral icterus. Total bili is elevated at 3.7, direct bili normal, H/H 8.6/25.3, UA with 1+ blood but no bili. Pt is moderately jaundiced on exam with spleen and liver tips palpable. Likelydue to hemolysis as a result of brown recluse toxin. Rash is still present on extremities so will ramos ve benadryl PRN for itching. Will monitor H/H q8h, currently low, also will get type/screen in the case of acute drop in hgb requiring transfusion. Plan: -Admit to purple team, Gm -mIVF D5/HNS @ 75ml/hr -Benadryl PRN itching -Regular diet -H/H q8h -Vitals q8h Inez Powers, CC: Nohemy June [address] [place] [phone] Associated attestation - Lexy Worrell MD - 12/25/2013 3:34 PM CDT I have seen and examined patient, reviewed resident's H&P and agree with findings and documentation. Refer to Attending's H&P. documented in this encounter Consult Notes * Sal Joyner MD - 12/28/2013 12:34 AM CDTAssociated Order(s): IP CONSULT TO TOXICOLOGY 12/28/2013 12:34 AM MEDICAL TOXICOLOGY CONSULT FOLLOW-UP Himanshu Damon is a 8 y.o. female patient seen in the morning around 0830 AM and again this afternoon around 1:36 PM. Himanshu continues with headache and has not relented since admission and day before. It gets worse but is always there for few days. Her Aunt Emma Georges-Day has migraine headaches. Discussed with family and Dr. Lexy Worrell. Patient assessed and examined Vital Signs: T 98 degrees, HR 102, RR 18, BP 104/64 Exam: Gen Alert, smiling, no distress, pale but no change SHEENT no generalized rash Heart S1S2 without murmur, no gallop, no rubs Abdomen soft, nontender, no HSM, no guarding Labs personally reviewed: Recent Results (from the past 24 hour(s)) HGB HCT PANEL Collection Time 12/27/13 6:24 AM Result Value Range Hgb 7.5 (*) 11.5-15.5 gm/dL HCT 22.6 (*) 35.0-45.0 % BASIC METABOLIC PANEL (CALCIUM TOTAL) Collection Time 12/27/13 6:24 AM Result Value Range Glucose 112 (*) 70-105 mg/dL Sodium 141 136-145 mmol/L Potassium 4.4 3.5-5.1 mmol/L Chloride 110 (*) 98-107 mmol/L CO2 23 20-28 mmol/L Calcium 9.15 9.12-10.48 mg/dL Anion Gap 8 5-20 mmol/L BUN 5.7 (*) 6.7-19.6 mg/dL Creatinine 0.47 (*) 0.53-0.80 mg/dL eGFR MDRD eGFR MDRD AFR AMR HGB HCT PANEL Collection Time 12/27/13 4:40 PM Result Value Range Hgb 7.8 (*) 11.5-15.5 gm/dL HCT 23.4 (*) 35.0-45.0 % I have personally seen and examined this patient. I have participated in the care of this patient as a technical assistance consultant. I have reviewed all pertinent clinical information, including history, physical examand plan. I have reviewed the nurses notes. I have reviewed available labs, ECGs or radiographic studies. I have discussed my toxicologic impression and recommendations with the Primary Attending Dr.Aline Worrell and the residents, Dr. Currie caring for this patient. Impression: 1) Loxoscelism with Hemolysis Hemoglobin stable at 7.5 to 7.8 gm/dL 2) Likely Status Migrainus headache Recommendations: 1) Do not transfuse at this time. 2) Apply ED Migraine CPG but perhaps not use Toradol (ketorolac) 3) Continue to monitor Sal Joyner MD Director, Division of Toxicology [facility] [phone] Access Center call first then can page: [phone] * Sal Joyner MD - 12/26/2013 1:43 PM CDTAssociated Order(s): IP CONSULT TO TOXICOLOGY 12/26/2013 1:44 PM MEDICAL TOXICOLOGY CONSULT Himanshu Damon is a 8 y.o. female who believes she was bitten by a brown recluse spideron December 15 or about 9 days ago. Her aunt who had formerly been a patient of mine called to report that she had this bite on the posterior calf of her leg and a generalized erythematousrash on her body. She did not have high fever nor back pain. I recommended evaluation in the ER at [facility] and she was subsequently admitted. She was monitored for hemolysis and her initial Hgb droppedbut thought to be rehydration dilutional. She was given instructions and emphasized by me with daily phone calls to the household to observe for yellowing of eyes, change in urine color, paleness,etc. Patient's mother called me on Monday of this week to report that she had yellow eyes and I instructed her to come to the ER again and plan on admission for hydration and monitoring of Hgb. Her presenting Hgb was 8.6 gm/dL dropped from 11. She had scleral icterus and was somewhat paler but in no distress, able to dance and play, no fever, no back pain. ROS: Pertinent ROS negative unless noted above. Constitutional: no fever Skin: no rash now and lesion on calf is improved. HEENT: no sore throat, has mild headaches, no vision problems CVS: no chest pain, no shortness of breath Pulmonary: no cough, GI: no vomiting, no abdominal pain, no diarrhea : negative, no dysuria Extrem: no pain in muscles Behavioral: normal affect, happy and energetic Active Ambulatory Problems Diagnosis Date Noted ??? Acute hemolysis 12/21/2013 Resolved Ambulatory Problems Diagnosis Date Noted ??? Plantar wart 07/19/2010 ??? PAINFUL BUMP L GREAT TOE 07/19/2010 Past Medical History Diagnosis Date ??? Medical history reviewed with no changes ??? Brown recluse spider bite 12/15/13 BP 92/42 Pulse 82 Temp(Src) 97.2 ??F Resp 18 Wt 36.4 kg (80 lb 4 oz) BMI 17.31 kg/m2 PE Gen alert, no distress, active, nontoxic SHEENT mm pink, but slightly pale color, mm moist Neck supple, no meningeal signs Heart S1S2 without murmur Lungs clear, no fine crackles, no wheezes, good aeration Abdomen soft, nontender, no HSM, no mass, no guarding Extremities normal tone, no rash, no petechiae Neuro no focal signs, interactive IMPRESSION: 1) Systemic loxoscelism 2) Hemolysis, venom mediated and possibly immune mediated. RECOMMENDATIONS: 1) I discussed with housestaff last evening as well as Heme Onc, Dr. Quintero, that I would NOT transfuse this patient at this point. I have seen loxoscelism patients and managed them without transfusion lower than this. Yesterday's Hgb was 7.5 gm/dL and then again today was 7.5 gm/dL so stable and no change. I would consider transfusion if she becomes significantly symptomatic or Hgb drops to close to 5 gm/dL but would discuss with Hematology. 2) Maintain good hydration 3) Would keep in hospital as unclear if she will further hemolyze. Steroids are not likely to help at this point and no evidence for their efficacy at this point. 4) Keep [facility] [phone] informed and I did call them to update on did not transfuse. 5) Will send pertinent articles to housestaff and attending. Recent Results (from the past 48 hour(s)) CBC W AUTO DIFFERENTIAL Collection Time 12/24/13 9:33 PM Result Value Range WBC 7.6 4.5-14.5 x10^9/L RBC 3.01 (*) 4.00-5.20 x10^12/L Hgb 8.6 (*) 11.5-15.5 gm/dL HCT 25.3 (*) 35.0-45.0 % MCV 84.1 77.0-95.0 fl MCH 28.6 25.0-33.0 pg MCHC 34.0 31.0-37.0 gm/dL Plt Ct 253 100-400 x10^9/L RDW-CV 12.9 11.5-14.0 % MPV 9.2 6.0-9.5 fl Neutro 42.4 24.0-66.0 % Lymph 48.2 22.0-61.0 % Johnson 6.4 3.0-15.0 % Eos 1.7 0.0-10.0 % Baso 0.9 Immature Grans 0.4 Neutro Abs 3.22 Lymph Abs 3.66 Johnson Abs 0.49 Eosin Abs 0.13 Baso Abs 0.07 Immature Grans Abs 0.03 COMPREHENSIVE METABOLIC PANEL Collection Time 12/24/13 9:33 PM Result Value Range Glucose 108 (*) 70-105 mg/dL Sodium 138 136-145 mmol/L Potassium 4.3 3.5-5.1 mmol/L Chloride 106 98-107 mmol/L CO2 22 20-28 mmol/L Calcium 9.72 9.12-10.48 mg/dL Anion Gap 10 5-20 mmol/L BUN 17.4 6.7-19.6 mg/dL Creatinine 0.56 0.53-0.80 mg/dL eGFR MDRD eGFR MDRD AFR AMR Alk Phos 276 100-320 U/L ALT/SGPT 64 8-65 U/L AST/SGOT 57 (*) 3-35 U/L Protein Total 7.0 6.2-9.1 gm/dL Albumin 4.3 3.6-4.9 gm/dL Bili Total 3.7 (*) 0.3-1.2 mg/dL BILIRUBIN DIRECT Collection Time 12/24/13 9:33 PM Result Value Range Bili Conj Direct 0.40 0.11-0.43 mg/dL URINALYSIS ROUTINE AUTO Collection Time 12/24/13 11:26 PM Result Value Range Color UA Yellow Straw, Yellow, Dark Yellow Clarity UA Clear Specific [place] UA 1.020 1.005-1.030 pH UA 7.5 5.0-8.0 pH Protein UA Negative Negative Blood UA 1+ (*) Negative Leukocyte UA Negative Negative Nitrite UA Negative Negative Glucose UA Negative Negative Ketone UA Negative Negative Bili UA Negative Negative Urobilinogen UA 1.0 0.1-1.0 EU/dL Urine Microscopy Urine microscopy to follow URINALYSIS MICROSCOPIC ONLY Collection Time 12/24/13 11:26 PM Result Value Range RBC UA 2-5 0-2, 2-5 # /hpf WBC UA 0-2 0-2, 2-5 # /hpf Bacteria UA 1+ (*) None Seen, Trace Epithelial Cell UA 0-2 0-2, 2-5 Mucus 2+ Amorphous phosphate crystals 1+ (*) None Seen TYPE + SCREEN PANEL Collection Time 12/24/13 11:27 PM Result Value Range ABO Patient Type AB Rh Patient Type Positive Antibody Screen Negative HGB HCT PANEL Collection Time 12/25/13 6:27 AM Result Value Range Hgb 8.0 (*) 11.5-15.5 gm/dL HCT 23.3 (*) 35.0-45.0 % HGB HCT PANEL Collection Time 12/25/13 4:03 PM Result Value Range Hgb 7.5 (*) 11.5-15.5 gm/dL HCT 22.4 (*) 35.0-45.0 % BASIC METABOLIC PANEL (CALCIUM TOTAL) Collection Time 12/25/13 4:03 PM Result Value Range Glucose 121 (*) 70-105 mg/dL Sodium 141 136-145 mmol/L Potassium 3.9 3.5-5.1 mmol/L Chloride 111 (*) 98-107 mmol/L CO2 20 20-28 mmol/L Calcium 8.83 (*) 9.12-10.48 mg/dL Anion Gap 10 5-20 mmol/L BUN 7.4 6.7-19.6 mg/dL Creatinine 0.45 (*) 0.53-0.80 mg/dL eGFR MDRD eGFR MDRD AFR AMR CK BLOOD Collection Time 12/25/13 4:03 PM Result Value Range CK 89 29-168 U/L LDH BLOOD Collection Time 12/25/13 4:03 PM Result Value Range LDH 289 (*) 140-260 U/L RETIC COUNT Collection Time 12/25/13 4:03 PM Result Value Range Retic Ct 4.81 (*) 0.5-3.6 % Reticulocyte Absolute 0.1265 (*) 0.0424-0.0702 x10^6/uL Retic Immature Fractionated 20.7 8.9-24.1 % Retic Hemoglobin 33.5 30.4-39.7 pg CROSSMATCH RBC Collection Time 12/25/13 5:43 PM Result Value Range Unit Donor # [id number] Product Code E0332 Unit Description E0332 RBC, IRR, LR, -1 ABO Donor Type B Rh Type Unit NEG Crossmatch Interpretation Compatible Unit Status Available XM BLOOD TYPE VERIFICATION Collection Time 12/25/13 5:43 PM Result Value Range ABO Patient Type AB Rh Patient Type Positive HGB HCT PANEL Collection Time 12/26/13 5:35 AM Result Value Range Hgb 7.5 (*) 11.5-15.5 gm/dL HCT 21.9 (*) 35.0-45.0 % BASIC METABOLIC PANEL (CALCIUM TOTAL) Collection Time 12/26/13 5:35 AM Result Value Range Glucose 121 (*) 70-105 mg/dL Sodium 141 136-145 mmol/L Potassium 4.5 3.5-5.1 mmol/L Chloride 111 (*) 98-107 mmol/L CO2 21 20-28 mmol/L Calcium 9.45 9.12-10.48 mg/dL Anion Gap 9 5-20 mmol/L BUN 6.2 (*) 6.7-19.6 mg/dL Creatinine 0.45 (*) 0.53-0.80 mg/dL eGFR MDRD eGFR MDRD AFR AMR I have personally seen and examined this patient. I have participated in the care of this patient as a technical assistance consultant. I have reviewed all pertinent clinical information, including history, physical examand plan. I have reviewed the nurses notes. I have reviewed available labs, ECGs or radiographic studies. I have discussed my toxicologic impression and recommendations with the primary Attending andthe residents caring for this patient. Sal Joyner MD Director, Division of Toxicology [facility] [phone] Access Center call first then can page: [phone] documented in this encounter ED Notes * Jackie Haque RN - 12/24/2013 9:23 PM CDT Lab called for blood work. Pt ambulatory to bathroom without difficulty. * Mera Hoffman MD - 12/24/2013 9:00 PM CDT Images from the original note were not included. EMERGENCY DEPARTMENT 12/24/2013 Dear Doctor, We had the pleasure of caring for your patient, Himanshu Damon in our emergency department on 12/24/2013. A note from the provider(s) who cared for your patient is attached. Should you wish to access any laboratory results, please call . Should you wish to access any radiology results, please call , option 3. In addition, you can access patient information 24 hours a day, from any computer, through [employer], the online version of our electronic medical record. If you would like to use this service, please call Elsie Jauregui, Connectivity Coordinator, at . We appreciate the opportunity to care for your patients. If you would like additional information, please call the emergency department directly at . Sincerely, Mera Hoffman MD Division of Emergency Medicine [facility], [place] [facility] [place] EMERGENCY DEPARTMENT Provider contact with the patient: 12/24/2013 21:00 Himanshu Damon [id number] [facility] EMERGENCY DEPARTMENT History Chief Complaint Patient presents with ??? Jaundice discharged on Monday from a brown recluse spider bite. today mom noted that pt sclera were yellowing. Spoke with Dr. Joyner who advised family to come in. denies fevers. pt c/o belly ache and headache. Pt presents with skin yellowing on face and yellowing sclera. states abdominal tenderness in mid epigastric region. awake and alert. HPI Comments: 8-yo female admitted on 12/20 for pain and tenderness of right leg for 1 week prior to admission then later full body rash. Pt previously on clindamycin and cephalosporin. Mother got incontact with Dr. Joyner who thought symptoms were consistent with brown recluse bite. She was admitted under diagnosis of acute hemolysis, started on IV clinda and Benadryl. Rash resolved, pain improved by discharge. Sent home on oral clinda on 12/22. Pt now here with c/o jaundice, pale, abd pain, headache. Past Medical History Diagnosis Date ??? Medical history reviewed with no changes previously healthy with no previous hospitalizations Past Surgical History Procedure Laterality Date ??? Negative surgical history History Social History ??? Marital Status: Single Spouse Name: N/A Number of Children: N/A ??? Years of Education: N/A Occupational History ??? Not on file. Social History Main Topics ??? Smoking status: Passive Smoke Exposure - Never Smoker ??? Smokeless tobacco: Never Used ??? Alcohol Use: No ??? Drug Use: No ??? Sexual Activity: Not on file Other Topics Concern ??? Not on file Social History Narrative Lives at home with mother, step-father and brother. No sick contacts or family members with similarsymptoms. Medications Current Outpatient Prescriptions Medication Sig Dispense Refill ??? clindamycin (CLEOCIN) 300 MG capsule Take 1 Cap by mouth 3 times daily for 5 days. 15 Cap 0 ??? ibuprofen (MOTRIN) 200 MG tablet Take 200 mg by mouth every 6 hours as needed for Pain. ??? diphenhydrAMINE (BENADRYL) 25 MG tablet Take 1 Tab by mouth every 4 hours as needed for Itching. 30 Tab 1 Review of Systems Review of Systems Constitutional: Positive for fatigue. Negative for fever. HENT: Negative for congestion, rhinorrhea and sore throat. Respiratory: Negative for cough and shortness of breath. Cardiovascular: Negative for chest pain. Gastrointestinal: Positive for abdominal pain. Negative for vomiting, diarrhea and constipation. Genitourinary: Negative for decreased urine volume. Musculoskeletal: Positive for gait problem (from leg wound). Skin: Positive for color change and pallor. Jaundice Neurological: Positive for headaches. Negative for dizziness and numbness. Hematological: Does not bruise/bleed easily. BP 105/61 Pulse 100 Temp(Src) 98.6 ??F Resp 20 Wt 36.7 kg (80 lb 14.5 oz) Physical Exam Physical Exam Constitutional: She appears well-developed and well-nourished. She is active. No distress. HENT: Head: Atraumatic. Right Ear: Tympanic membrane normal. Left Ear: Tympanic membrane normal. Nose: Nose normal. Mouth/Throat: Mucous membranes are moist. Dentition is normal. Oropharynx is clear. Eyes: EOM are normal. Pupils are equal, round, and reactive to light. Right eye exhibits no discharge. Left eye exhibits no discharge. Scleral icterus is present. Neck: Normal range of motion. Cardiovascular: Normal rate, regular rhythm, S1 normal and S2 normal. Pulses are strong. No murmur heard. Pulmonary/Chest: Effort normal and breath sounds normal. There is normal air entry. No respiratory distress. Abdominal: Soft. Bowel sounds are normal. She exhibits no distension and no mass. There is no hepatosplenomegaly. There is generalized tenderness. There is no rebound and no guarding. Musculoskeletal: Normal range of motion. She exhibits no edema or tenderness. Legs: Lymphadenopathy: She has no cervical adenopathy. Neurological: She is alert. No cranial nerve deficit. She exhibits normal muscle tone. Coordinationnormal. Skin: Skin is warm and dry. Capillary refill takes less than 3 seconds. No rash noted. There is jaundice. Procedures Procedures ECG Interpretation ECG Interpretation Lab/SPO2 Interpretation Recent Results (from the past 24 hour(s)) CBC W AUTO DIFFERENTIAL Collection Time 12/24/13 9:33 PM Result Value Range WBC 7.6 4.5-14.5 x10^9/L RBC 3.01 (*) 4.00-5.20 x10^12/L Hgb 8.6 (*) 11.5-15.5 gm/dL HCT 25.3 (*) 35.0-45.0 % MCV 84.1 77.0-95.0 fl MCH 28.6 25.0-33.0 pg MCHC 34.0 31.0-37.0 gm/dL Plt Ct 253 100-400 x10^9/L RDW-CV 12.9 11.5-14.0 % MPV 9.2 6.0-9.5 fl Neutro 42.4 24.0-66.0 % Lymph 48.2 22.0-61.0 % Johnson 6.4 3.0-15.0 % Eos 1.7 0.0-10.0 % Baso 0.9 Immature Grans 0.4 Neutro Abs 3.22 Lymph Abs 3.66 Johnson Abs 0.49 Eosin Abs 0.13 Baso Abs 0.07 Immature Grans Abs 0.03 COMPREHENSIVE METABOLIC PANEL Collection Time 12/24/13 9:33 PM Result Value Range Glucose 108 (*) 70-105 mg/dL Sodium 138 136-145 mmol/L Potassium 4.3 3.5-5.1 mmol/L Chloride 106 98-107 mmol/L CO2 22 20-28 mmol/L Calcium 9.72 9.12-10.48 mg/dL Anion Gap 10 5-20 mmol/L BUN 17.4 6.7-19.6 mg/dL Creatinine 0.56 0.53-0.80 mg/dL eGFR MDRD eGFR MDRD AFR AMR Alk Phos 276 100-320 U/L ALT/SGPT 64 8-65 U/L AST/SGOT 57 (*) 3-35 U/L Protein Total 7.0 6.2-9.1 gm/dL Albumin 4.3 3.6-4.9 gm/dL Bili Total 3.7 (*) 0.3-1.2 mg/dL BILIRUBIN DIRECT Collection Time 12/24/13 9:33 PM Result Value Range Bili Conj Direct 0.40 0.11-0.43 mg/dL Progress Notes ED Course Pt examined Will check CBC, CMP, direct bili, u/a; concern for hemolysis from brown recluse spider bite CBC showing hemoglobin of 8.6, decreased from 10.9 on 12/22 CMP showing elevated total bili at 3.7, d. Bili is normal. Labs consistent with acute hemolysis due to brown recluse spider bite Will check type & screen Will admit to floor team. Floor team paged. Will admit for IVF, get H/H every 8-12 hours. Floor team aware. Still awaiting u/a. Will contact PCP regarding admission. Medical Decision Making Clinical Impression Final diagnoses: Acute hemolysis Mera Hoffman MD 12/24/2013 11:40 PM * Jackie Haque RN - 12/24/2013 8:55 PM CDT MD Joyner at bedside. Pt describing dark yellow urine, recent abd pain, denies N/V/D. Pt's mother reports pt w/yellow sclera. Mild yellow tinge noted to sclera. 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 Office Visit [facility] - Endocrinology [address] [place] [address] Hilario Traore MD [address] [place] [address] documented as of this encounter Procedures Procedure Name Priority Date/Time Associated Diagnosis Comments HGB HCT PANEL Routine 12/30/2013 6:01 AM CDT HGB HCT PANEL Timed 12/29/2013 5:12 AM CDT HGB HCT PANEL Timed 12/28/2013 5:03 PM CDT US ABDOMEN COMPLETE Routine 12/28/2013 9 :28 AM CDT Acute hemolysis HGB HCT PANEL Timed 12/28/2013 5:03 AM CDT BASIC METABOLIC PANEL (CALCIUM TOTAL) AM Draw 12/28/2013 5:03 AM CDT HGB HCT PANEL Timed 12/27/2013 4:40 PM CDT HGB HCT PANEL Timed 12/27/2013 6:24 AM CDT BASIC METABOLIC PANEL (CALCIUM TOTAL) AM Draw 12/27/2013 6:24 AM CDT HGB HCT PANEL Timed 12/26/2013 4:25 PM CDT HGB HCT PANEL Timed 12/26/2013 5:35 AM CDT BASIC METABOLIC PANEL (CALCIUM TOTAL) AM Draw 12/26/2013 5:35 AM CDT BLOOD TYPE VERIFICATION Routine 12/25/2013 5:43 PM CDT CROSSMATCH RBC LEUKOREDUCED JAYE 12/25/2013 5:43 PM CDT RETIC COUNT Routine 12/25/2013 4:03 PM CDT HGB HCT PANEL Timed 12/25/2013 4:03 PM CDT BASIC METABOLIC PANEL (CALCIUM TOTAL) Routine 12/25/2013 4:03 PM CDT LDH BLOOD Routine 12/25/2013 4:03 PM CDT CK BLOOD Routine 12/25/2013 4:03 PM CDT HGB HCT PANEL STAT 12/25/2013 6:27 AM CDT TYPE + SCREEN PANEL STAT 12/24/2013 1 1:27 PM CDT URINALYSIS REFLEX TO MICROSCOPIC NO CULTURE STAT 12/24/2013 11:26 PM CDT URINE MICROSCOPIC ONLY STAT 4 11:26 PM CDT CBC W AUTO DIFFERENTIAL STAT 12/24/2013 9:33 PM CDT COMPREHENSIVE METABOLIC PANEL STAT 12/24/2013 9:33 PM CDT BILIRUBIN DIRECT STAT 12/24/2013 9:33 PM CDT documented in this encounter Results * (ABNORMAL) HGB HCT PANEL (12/30/2013 6:01 AM CDT) Hemoglobin 8.4(L) 11.5 - 15.5 gm/dL 12/30/2013 6:43 AM CDT [facility] Hematocrit 25.9(L) 35.0 - 45.0 % 12/30/2013 6:43 AM CDT [facility] Blood BLOOD SPECIMEN / Unknown Lab Venipuncture / Unknown 12/30/2013 6:01 AM CDT 12/30/2013 6:14 AM CDT Cynthia Mahajan MD LAB - NA TOLOGY ORDERABLES Performing Organization Address [facility] Co de Phone Number [facility] [address] [place] [phone] * (ABNORMAL) HGB HCT PANEL (12/29/2013 5:12 AM CDT) Hemoglobin 7.9(LL) 11.5 - 15.5 gm/dL 12/29/2013 5:38 AM CDT [facility] Hematocrit 24.4(LL) 35.0 - 45.0 % 12/29/2013 5:38 AM CDT [facility] Blood BLOOD SPECIMEN / Unknown Lab Venipuncture / Unknown 12/29/2013 5:12 AM CDT 12/29/2013 5:25 AM CDT Ignacio Moon MD LAB - HEMATOLOGY ORD REE Performing Organization Address [facility] Co de Phone Number [facility] [address] [place] [phone] * (ABNORMAL) HGB HCT PANEL (12/28/2013 5:03 PM CDT) Hemoglobin 8.1(L) 11.5 - 15.5 gm/dL 12/28/2013 5:30 PM CDT [facility] Hematocrit 24.5(LL) 35.0 - 45.0 % 12/28/2013 5:30 PM CDT [facility] Blood BLOOD SPECIMEN / Unknown Lab Venipuncture / Unknown 12/28/2013 5:03 PM CDT 12/28/2013 5:06 PM CDT Ignacio Moon MD LAB - HEMATOLOGY ORD REE Performing Organization Address City/[facility] Co de Phone Number [facility] [address] [place] [phone] * US ABDOMEN COMPLETE (12/28/2013 9:28 AM [...] PANEL (CALCIUM TOTAL) (12/28/2013 5:03 AM CDT) Glucose 110(H) 70 - 105 mg/dL 12/28/2013 6:01 AM [facility] Sodium 142 136 - 145 mmol/L 12/28/2013 6:01 AM [facility] Potassium 4.1 3.5 - 5.1 mmol/L 12/28/2013 6:01 AM [facility] Chloride 110(H) 98 - 107 mmol/L 12/28/2013 6:01 AM [facility] CO2 23 20 - 28 mmol/L 12/28/2013 6:01 AM [facility] Calcium 9.03(L) 9.12 - 10.48 mg/dL 12/28/2013 6:01 AM [facility] Anion Gap 9 5 - 20 mmol/L 12/28/2013 6:01 AM [facility] BUN 6.8 6.7 - 19.6 mg/dL 12/28/2013 6:01 AM T [facility] Creatinine 0.49(L) 0.53 - 0.80 mg/dL 12/28/2013 6:01 AM T [facility] eGFR by MDRD mL/min/1. 73m2 12/28/2013 6:01 AM T [facility] Comment:eGFR calculations ar e not performed for children under 18 years old. eGFR by MDRD mL/min/1. 73m2 12/28/2013 6:01 AM T [facility] Comment:eGFR calculations ar e not performed for children under 18 years old. Blood BLOOD SPECIMEN / Unknown Lab Venipuncture / Unknown 12/28/2013 5:03 AM CDT 12/28/2013 5:18 AM CDT Ignacio Moon MD LAB - CHEMISTRY SAMRA SMALLWOOD Performing Organization Address City/[facility] de Phone Number [facility] [address] [place] [phone] * (ABNORMAL) HGB HCT PANEL (12/28/2013 5:03 AM CDT) Hemoglobin 7.7(LL) 11.5 - 15.5 gm/dL 12/28/2013 5:33 AM T [facility] Hematocrit 23.3(LL) 35.0 - 45.0 % 12/28/2013 5:33 AM T [facility] Blood BLOOD SPECIMEN / Unknown Lab Venipuncture / Unknown 12/28/2013 5:03 AM CDT 12/28/2013 5:18 AM CDT Ignacio Moon MD LAB - HEMATOLOGY ORD ERABAUTISTA [facility] [address] [place] [address] * (ABNORMAL) HGB HCT PANEL (12/27/2013 4:40 PM CDT) Hemoglobin 7.8(LL) 11.5 - 15.5 gm/dL 12/27/2013 5:29 PM CDT [facility] Hematocrit 23.4(LL) 35.0 - 45.0 % 12/27/2013 5:29 PM CDT [facility] Blood BLOOD SPECIMEN / Unknown Lab Venipuncture / Unknown 12/27/2013 4:40 PM CDT 12/27/2013 5:19 PM CDT Ignacio Moon MD LAB - HEMATOLOGY ORD ERABLES [facility] [address] [place] [address] * (ABNORMAL) BASIC METABOLIC PANEL (CALCIUM TOTAL) (12/27/2013 6:24 AM CDT) [facility] Glucose 112(H) 70 - 105 mg/dL 12/27/2013 7:24 AM T [facility] Sodium 141 136 - 145 mmol/L 12/27/2013 7:24 AM [facility] Potassium 4.4 3.5 - 5.1 mmol/L 12/27/2013 7:24 AM [facility] Chloride 110(H) 98 - 107 mmol/L 12/27/2013 7:24 AM T [facility] CO2 23 20 - 28 mmol/L 12/27/2013 7:24 AM [facility] Calcium 9.15 9.12 - 10.48 mg/dL 12/27/2013 7:24 AM [facility] Anion Gap 8 5 - 20 mmol/L 12/27/2013 7:24 AM [facility] BUN 5.7(L) 6.7 - 19.6 mg/dL 12/27/2013 7:24 AM [facility] Creatinine 0.47(L) 0.53 - 0.80 mg/dL 12/27/2013 7:24 AM [facility] eGFR by MDRD mL/min/1. 73m2 12/27/2013 7:24 AM T [facility] Comment:eGFR calculations ar e not performed for children under 18 years old. eGFR by MDRD mL/min/1. 73m2 12/27/2013 7:24 AM [facility] Comment:eGFR calculations ar e not performed for children under 18 years old. Blood BLOOD SPECIMEN / Unknown Lab Venipuncture / Unknown 12/27/2013 6:24 AM CDT 12/27/2013 6:50 AM CDT Ignacio Moon MD LAB - CHEMISTRY SAMRA SMALLWOOD Performing Organization Address [facility]/ZIP Co de Phone Number [facility] [address] [place] [phone] * (ABNORMAL) HGB HCT PANEL (12/27/2013 6:24 AM CDT) Hemoglobin 7.5(LL) 11.5 - 15.5 gm/dL 12/27/2013 7:58 AM CDT [facility] Hematocrit 22.6(LL) 35.0 - 45.0 % 12/27/2013 7:58 AM CDT [facility] Blood BLOOD SPECIMEN / Unknown Lab Venipuncture / Unknown 12/27/2013 6:24 AM CDT 12/27/2013 6:50 AM CDT Ignacio Moon MD LAB - HEMATOLOGY ORD REE Performing Organization Address [facility] de Phone Number [facility] [address] [place] [phone] * (ABNORMAL) HGB HCT PANEL (12/26/2013 4:25 PM CDT) Hemoglobin 7.8(LL) 11.5 - 15.5 gm/dL 12/26/2013 4:57 PM CDT [facility] Hematocrit 22.8(LL) 35.0 - 45.0 % 12/26/2013 4:57 PM CDT [facility] Blood BLOOD SPECIMEN / Unknown Lab Venipuncture / Unknown 12/26/2013 4:25 PM CDT 12/26/2013 4:30 PM CDT Ignacio Moon MD LAB - HEMATOLOGY ORD REE Performing Organization Address City/[facility] Co de Phone Number [facility] [address] [place] [phone] * (ABNORMAL) BASIC METABOLIC PANEL (CALCIUM TOTAL) (12/26/2013 5:35 AM CDT) Glucose 121(H) 70 - 105 mg/dL 12/26/2013 6:12 AM CDT [facility] Sodium 141 136 - 145 mmol/L 12/26/2013 6:12 AM [facility] Potassium 4.5 3.5 - 5.1 mmol/L 12/26/2013 6:12 AM [facility] Chloride 111(H) 98 - 107 mmol/L 12/26/2013 6:12 AM [facility] CO2 21 20 - 28 mmol/L 12/26/2013 6:12 AM [facility] Calcium 9.45 9.12 - 10.48 mg/dL 12/26/2013 6:12 AM [facility] Anion Gap 9 5 - 20 mmol/L 12/26/2013 6:12 AM [facility] BUN 6.2(L) 6.7 - 19.6 mg/dL 12/26/2013 6:12 AM [facility] Creatinine 0.45(L) 0.53 - 0.80 mg/dL 12/26/2013 6:12 AM [facility] eGFR by MDRD mL/min/1. 73m2 12/26/2013 6:12 AM [facility] Comment:eGFR calculations ar e not performed for children under 18 years old. eGFR by MDRD mL/min/1. 73m2 12/26/2013 6:12 AM [facility] Comment:eGFR calculations ar e not performed for children under 18 years old. Blood BLOOD SPECIMEN / Unknown Lab Venipuncture / Unknown 12/26/2013 5:35 AM CDT 12/26/2013 5:40 AM T Ignacio Moon MD LAB - CHEMISTRY SAMRA SMALLWOOD [facility] Organization Address City/State/[facility] Co de Phone Number [facility] [address] [place] [address] * (ABNORMAL) HGB HCT PANEL (12/26/2013 5:35 AM CDT) Hemoglobin 7.5(LL) 11.5 - 15.5 gm/dL 12/26/2013 5:54 AM T [facility] Hematocrit 21.9(LL) 35.0 - 45.0 % 12/26/2013 5:54 AM [facility] Blood BLOOD SPECIMEN / Unknown Lab Venipuncture / Unknown 12/26/2013 5:35 AM CDT 12/26/2013 5:42 AM CDT Ignacio Moon MD LAB - HEMATOLOGY ORD ERABLES Performing Organization Address [facility]/ZIP Co de Phone Number [facility] [address] [place] [address] * BLOOD TYPE VERIFICATION (12/25/2013 5:43 PM CDT) ABO AB 12/25/2013 6:55 PM CDT [facility] Rh Type Positive 12/25/2013 6:55 PM CDT [facility] Miscellaneous samples (specimen) BLOOD SPECIMEN / Unknown 12/25/2013 5:43 PM CDT 12/25/2013 6:50 PM CDT Ignacio Moon MD LAB - BLOOD BANK ORD ERABLES Performing Organization Address [facility] de Phone Number [facility] [address] [place] [address] * CROSSMATCH RBC (12/25/2013 5:43 PM CDT) Unit Donor # [id number] 12/29/2013 3:17 AM CDT [facility] Product Code E0332 12/29/2013 3:17 AM CDT [facility] Unit Description E0332 RBC, IRR, LR, -1 12/29/2013 3:17 AM CDT [facility] ABO Donor Type B 12/29/2013 3:17 AM CDT [facility] Rh Type Unit NEG 12/29/2013 3:17 AM CDT [facility] Crossmatch Interpretation Compatible 12/29/2013 3:17 AM CDT [facility] Unit Status Returned 12/29/2013 3:17 AM CDT [facility] Miscellaneous samples (specimen) BLOOD SPECIMEN / Unknown 12/25/2013 5:43 PM CDT 12/25/2013 5:57 PM CDT Ignacio Moon MD LAB - BLOOD BANK ORD ERABLES Performing Organization Address City/[facility]/ZIP Co de Phone Number [facility] [address] [place] [address] * (ABNORMAL) RETIC COUNT (12/25/2013 4:03 PM CDT) [facility] Reticulocyte Count 4.81(H) 0.5 - 3.6 % 12/25/2013 5:08 PM CDT [facility] Reticulocyte Absolute 0.1265(H) 0.0424 - 0.0702 x10^6/uL 12/25/2013 5:08 PM CDT [facility] Reticulocyte Immature Fractionated 20.7 8.9 - 24.1 % 12/25/2013 5:08 PM CDT [facility] Hemoglobin Retic 33.5 30.4 - 39.7 pg 12/25/2013 5:08 PM CDT [facility] Blood BLOOD SPECIMEN / Unknown 12/25/2013 4:03 PM CDT 12/25/2013 4:12 PM CDT Ignacio Moon MD LAB - HEMATOLOGY ORD ERABLES Performing Organization Address [facility]/ZIP Co de Phone Number [facility] [address] [place] [address] * (ABNORMAL) HGB HCT PANEL (12/25/2013 4:03 PM CDT) [facility] Hemoglobin 7.5(LL) 11.5 - 15.5 gm/dL 12/25/2013 5:07 PM CDT [facility] Hematocrit 22.4(LL) 35.0 - 45.0 % 12/25/2013 5:07 PM CDT [facility] Blood BLOOD SPECIMEN / Unknown 12/25/2013 4:03 PM CDT 12/25/2013 4:12 PM CDT Ignacio Moon MD LAB - HEMATOLOGY ORD ERABLES Performing Organization Address City/[facility]/ZIP Co de Phone Number [facility] [address] [place] [address] * (ABNORMAL) LDH BLOOD (12/25/2013 4:03 PM CDT) LDH 289(H) 140 - 260 U/L 12/25/2013 4:47 PM CDT [facility] Blood BLOOD SPECIMEN / Unknown 12/25/2013 4:03 PM CDT 12/25/2013 4:12 PM CDT Ignacio Moon MD LAB - CHEMISTRY ORDBarb SMALLWOOD Performing Organization Address [facility] Co de Phone Number [facility] [address] [place] [phone] * CK BLOOD (12/25/2013 4:03 PM CDT) CK 89 29 - 168 U/L 12/25/2013 4:49 PM CDT [facility] Blood BLOOD SPECIMEN / Unknown 12/25/2013 4:03 PM CDT 12/25/2013 4:12 PM CDT Ignacio Moon MD LAB - CHEMISTRY ORDBarb SMALLWOOD Performing Organization Address [facility] de Phone Number [facility] [address] [place] [address] * (ABNORMAL) BASIC METABOLIC PANEL (CALCIUM TOTAL) (12/25/2013 4:03 PM CDT) Glucose 121(H) 70 - 105 mg/dL 12/25/2013 4:47 PM CDT [facility] Sodium 141 136 - 145 mmol/L 12/25/2013 4:47 PM CDT [facility] Potassium 3.9 3.5 - 5.1 mmol/L 12/25/2013 4:47 PM CDT [facility] Chloride 111(H) 98 - 107 mmol/L 12/25/2013 4:47 PM CDT [facility] CO2 20 20 - 28 mmol/L 12/25/2013 4:47 PM CDT [facility] Calcium 8.83(L) 9.12 - 10.48 mg/dL 12/25/2013 4:47 PM T [facility] Anion Gap 10 5 - 20 mmol/L 12/25/2013 4:47 PM CDT [facility] BUN 7.4 6.7 - 19.6 mg/dL 12/25/2013 4:47 PM CDT [facility] Creatinine 0.45(L) 0.53 - 0.80 mg/dL 12/25/2013 4:47 PM CDT [facility] eGFR by MDRD mL/min/1. 73m2 12/25/2013 4:47 PM T [facility] Comment:eGFR calculations ar e not performed for children under 18 years old. eGFR by MDRD mL/min/1. 73m2 12/25/2013 4:47 PM CDT [facility] Comment:eGFR calculations ar e not performed for children under 18 years old. Blood BLOOD SPECIMEN / Unknown 12/25/2013 4:03 PM CDT 12/25/2013 4:12 PM CDT Ignacio Moon MD LAB - CHEMISTRY SAMRA SMALLWOOD Performing Organization Address [facility] Co de Phone Number [facility] [address] [place] [phone] * (ABNORMAL) HGB HCT PANEL (12/25/2013 6:27 AM CDT) Hemoglobin 8.0(LL) 11.5 - 15.5 gm/dL 12/25/2013 7:03 AM T [facility] Hematocrit 23.3(LL) 35.0 - 45.0 % 12/25/2013 7:03 AM T [facility] Blood BLOOD SPECIMEN / Unknown Lab Venipuncture / Unknown 12/25/2013 6:27 AM CDT 12/25/2013 6:35 AM CDT Mera Hoffman MD LAB - HEMATOLOG Y ORDERABLES Performing Organization Address City/[facility] Co de Phone Number [facility] [address] [place] [phone] * TYPE + SCREEN PANEL (12/24/2013 11:27 PM CDT) ABO AB 12/25/2013 12:17 AM CDT [facility] Rh Type Positive 12/25/2013 12:17 AM CDT [facility] Antibody Screen Negative 12/25/2013 12:17 AM CDT [facility] Miscellaneous samples (specimen) BLOOD SPECIMEN / Unknown 12/24/2013 11:27 PM CDT 12/24/2013 11:31 PM CDT Mera Hoffman MD LAB - BLOOD BAN K ORDERABLES Performing Organization Address [facility] Co de Phone Number [facility] [address] [place] [address] * (ABNORMAL) URINALYSIS MICROSCOPIC ONLY (12/24/2013 11:26 PM CDT) RBC UA 2-5 0-2, 2-5 # /hpf 12/24/2013 11:45 PM CDT [facility] WBC UA 0-2 0-2, 2-5 # /hpf 12/24/2013 11:45 PM CDT [facility] Bacteria UA 1+(A) None Seen, Trace 12/24/2013 11:45 PM CDT [facility] Epithelial Cell UA 0-2 0-2, 2-5 12/24/2013 11:45 PM CDT [facility] Mucus UA 2+ 12/24/2013 11:45 PM CDT [facility] Amorphous Phosphate Crystals 1+(A) None Seen 12/24/2013 11:45 PM CDT [facility] Urine URINE SPECIMEN OBTAINED BY CLEAN CATCH PROCEDURE / Unknown 12/24/2013 11:26 PM CDT 12/24/2013 11:31 PM CDT Mera Hoffman MD LAB - URINALYSI S ORDERABLES Performing Organization Address [facility] Co de Phone Number [facility] [address] [place] [address] * (ABNORMAL) URINALYSIS ROUTINE AUTO (12/24/2013 11:26 PM CDT) Color UA Yellow Straw, Yellow, Dark Yellow 12/24/2013 11:37 PM CDT [facility] Clarity UA Clear 12/24/2013 11:37 PM CDT [facility] Specific [place] UA 1.020 1.005 - 1.030 12/24/2013 11:37 PM CDT [facility] pH UA 7.5 5.0 - 8.0 pH 12/24/2013 11:37 PM CDT [facility] Protein UA Negative Negative 12/24/2013 11:37 PM CDT [facility] Blood UA 1+(A) Negative 12/24/2013 11:37 PM T [facility] Leukocyte UA Negative Negative 12/24/2013 11:37 PM T [facility] Nitrite UA Negative Negative 12/24/2013 11:37 PM T [facility] Glucose UA Negative Negative 12/24/2013 11:37 PM T [facility] Ketone UA Negative Negative 12/24/2013 11:37 PM T [facility] Bilirubin UA Negative Negative 12/24/2013 11:37 PM T [facility] Urobilinogen UA 1.0 0.1 - 1.0 EU/dL 12/24/2013 11:37 PM T [facility] Urine Microscopy Urine microscopy to follow 12/24/2013 11:37 PM T [facility] Urine URINE SPECIMEN OBTAINED BY CLEAN CATCH PROCEDURE / Unknown 12/24/2013 11:26 PM CDT 12/24/2013 11:31 PM CDT Mera Hoffman MD LAB - URINALYSI S ORDERABLES Performing Organization Address City/[facility]/ZIP Co de Phone Number [facility] [address] [place] [address] * BILIRUBIN DIRECT (12/24/2013 9:33 PM CDT) Bilirubin Direct 0.40 0.11 - 0.43 mg/dL 12/24/2013 9:56 PM T [facility] Blood BLOOD SPECIMEN / Unknown Lab Venipuncture / Unknown 12/24/2013 9:33 PM CDT 12/24/2013 9:43 PM CDT Mera Hoffman MD LAB - CHEMISTRY ORDERABLES Performing Organization Address [facility]/ZIP Co de Phone Number [facility] [address] [place] [address] * (ABNORMAL) COMPREHENSIVE METABOLIC PANEL (12/24/2013 9:33 PM CDT) Glucose 108(H) 70 - 105 mg/dL 12/24/2013 10:09 PM CDT [facility] Sodium 138 136 - 145 mmol/L 12/24/2013 10:09 PM [facility] Potassium 4.3 3.5 - 5.1 mmol/L 12/24/2013 10:09 PM [facility] LABORATORY Chloride 106 98 - 107 mmol/L 12/24/2013 10:09 PM [facility] CO2 22 20 - 28 mmol/L 12/24/2013 10:09 PM [facility] Calcium 9.72 9.12 - 10.48 mg/dL 12/24/2013 10:09 PM [facility] Anion Gap 10 5 - 20 mmol/L 12/24/2013 10:09 PM [facility] BUN 17.4 6.7 - 19.6 mg/dL 12/24/2013 10:09 PM [facility] Creatinine 0.56 0.53 - 0.80 mg/dL 12/24/2013 10:09 PM [facility] eGFR by MDRD mL/min/1.7 3m2 12/24/2013 10:09 PM [facility] Comment:eGFR calculations ar e not performed for children under 18 years old. eGFR by MDRD mL/min/1.7 3m2 12/24/2013 10:09 PM [facility] Comment:eGFR calculations ar e not performed for children under 18 years old. Alkaline Phosphatase 276 100 - 320 U/L 12/24/2013 10:09 PM [facility] ALT 64 8 - 65 U/L 12/24/2013 10:09 PM [facility] AST 57(H) 3 - 35 U/L 12/24/2013 10:09 PM [facility] Protein Total 7.0 6.2 - 9.1 gm/dL 12/24/2013 10:09 PM [facility] Albumin 4.3 3.6 - 4.9 gm/dL 12/24/2013 10:09 PM [facility] Bilirubin Total 3.7(H) 0.3 - 1.2 mg/dL 12/24/2013 10:09 PM [facility] Blood BLOOD SPECIMEN / Unknown Lab Venipuncture / Unknown 12/24/2013 9:33 PM CDT 12/24/2013 9:43 PM T Mera Hoffman MD LAB - CHEMISTRY ORDERABLES [facility] [address] [place] [address] * (ABNORMAL) CBC W AUTO DIFFERENTIAL (12/24/2013 9:33 PM CDT) WBC 7.6 4.5 - 14.5 x10^9/L 12/24/2013 9:39 PM CDT [facility] RBC 3.01(L) 4.00 - 5.20 x10^12/L 12/24/2013 9:39 PM CDT [facility] Hemoglobin 8.6(L) 11.5 - 15.5 gm/dL 12/24/2013 9:39 PM CDT [facility] Hematocrit 25.3(L) 35.0 - 45.0 % 12/24/2013 9:39 PM CDT [facility] MCV 84.1 77.0 - 95.0 fl 12/24/2013 9:39 PM CDT [facility] MCH 28.6 25.0 - 33.0 pg 12/24/2013 9:39 PM CDT [facility] MCHC 34.0 31.0 - 37.0 gm/dL 12/24/2013 9:39 PM CDT [facility] Platelet Count 253 100 - 400 x10^9/L 12/24/2013 9:39 PM CDT [facility] RDW-CV 12.9 11.5 - 14.0 % 12/24/2013 9:39 PM CDT [facility] MPV 9.2 6.0 - 9.5 fl 12/24/2013 9:39 PM CDT [facility] Neutrophils % 42.4 24.0 - 66.0 % 12/24/2013 9:39 PM CDT [facility] Lymphocytes % 48.2 22.0 - 61.0 % 12/24/2013 9:39 PM CDT [facility] Monocytes % 6.4 3.0 - 15.0 % 12/24/2013 9:39 PM CDT [facility] Eosinophils % 1.7 0.0 - 10.0 % 12/24/2013 9:39 PM CDT [facility] Basophils % 0.9 % 12/24/2013 9:39 PM CDT [facility] Immature Granulocytes 0.4 % 12/24/2013 9:39 PM CDT [facility] Neutrophil Absolute 3.22 x10^9/L 12/24/2013 9:39 PM CDT [facility] Lymphocytes Absolute 3.66 x10^9/L 12/24/2013 9:39 PM CDT [facility] Monocytes Absolute 0.49 x10^9/L 12/24/2013 9:39 PM CDT [facility] Eosinophils Absolute 0.13 x10^9/L 12/24/2013 9:39 PM CDT [facility] Basophils Absolute 0.07 x10^9/L 12/24/2013 9:39 PM CDT [facility] Immature Granulocytes Absolute 0.03 x10^9/L 12/24/2013 9:39 PM CDT [facility] Blood BLOOD SPECIMEN / Unknown Lab Venipuncture / Unknown 12/24/2013 9:33 PM CDT 12/24/2013 9:36 PM CDT Mera Hoffman MD LAB - HEMATOLOG Y ORDERABLES Performing Organization Address City/State/[facility] Co de Phone Number [facility] [address] [phone] documented in this encounter Visit Diagnoses Diagnosis Abdominal pain, generalized- Primary Acute hemolysis Hemoglobinuria due to hemolysis from external causes Hemoglobinuria Spider bite, initial encounter Jaundice Jaundice, unspecified, not of Acute hemolysis Hemoglobinuria due to hemolysis from external causes * Assessment & Plan Note - Mark Banks MD - 12/30/2013 11:53 AM CDT Associated Problem(s): Acute hemolysis secondary to brown recluse bite Assessment: Himanshu is a 8 yr old female with acute hemolysis secondary to brown recluse bite. Her symptoms (jaundice) have resolved and H/H is improving on subsequent checks. Would anticipate continued improvement in H/H without further intervention. Plan: - will d/c home today * Assessment & Plan Note - Cynthia Mahajan MD - 12/29/2013 12:27 PM CDT Associated Problem(s): Acute hemolysis secondary to brown recluse bite Assessment: Himanshu is a 8 yr old [...] discharged home if her symptoms continue to bestable and her labs continue to trend upward. Headaches- most likely tension headaches, will keep a journal dafter discharge and the symptoms become more persistent and increase in severity then will consider a neurology consult at that time after she follows up with her PCM * Assessment & Plan Note - Cynthia Mahajan MD - 12/28/2013 1:54 PM CDT Associated Problem(s): Acute hemolysis secondary to brown recluse bite Assessment: Himanshu is a 8 yr old female with acute hemolysis secondary to brown recluse bite. The additional sequale of headaches, juandice, and abdominal pain is mostly assoicated with the recent spider bite. Plan: Problem: 1. Brown Recluse Bite with sequale Renal function is mildly decreased but improved BUN/Cr (6.8/.49). Continue to monitor for hemolysiswith a decreased H/H (7.7/23.3) Will continue to treat with PRBC if patient becomes symptomatic or if the HG is less than 7. Consult toxicology, follow per recs Continue with MIVF Regular Diet Vitals q4h Benadryl PRN itching Nexium 20mg q12h H&H panel AM: BMP +Ca, CK, LDH ( last lab draw on Monday, then D/C these) * Assessment & Plan Note - Cynthia Mahajan MD - 12/25/2013 6:21 PM CDT Associated Problem(s): Acute hemolysis secondary to brown recluse bite Assessment: Himanshu is a 8 yr old female with acute hemolysis secondary to brown recluse bite. The additional sequale of headaches, juandice, and abdominal pain is mostly assoicated with the recent spider bite. Plan: Problem: 1. Brown Recluse Bite with sequale Renal function is mildly decreased but improved BUN/Cr (5.7/.47). Continue to monitor for hemolysiswith a decreased H/H (7.5/22.6) Will continue to treat with PRBC if patient becomes symptomatic or if the HG is less than 7. Consult toxicology, follow per recs Continue with MIVF Regular Diet Vitals q4h Benadryl PRN itching Nexium 20mg q12h H&H panel AM: BMP +Ca, CK, LDH * Assessment & Plan Note - Ignacio Moon MD - 12/25/2013 6:18 PM CDT Associated Problem(s): Acute hemolysis secondary to brown recluse bite Assessment: Ongoing hemolysis with hemoglobin now at 7.5 Plan: Transfusion of one unit red blood cells. * Assessment & Plan Note - Chantel Powers DO - 12/25/2013 3:15 AM CDT Associated Problem(s): Jaundice Assessment: Himanshu is a 8yo F with history of brown recluse bite admitted for 1-day history of jaundice and scleral icterus. Total bili is elevated at 3.7, direct bili normal, H/H 8.6/25.3, UA with 1+ blood but no bili. Pt is moderately jaundiced on exam with spleen and liver tips palpable. Likelydue to hemolysis as a result of brown recluse toxin. Rash is still present on extremities so will ramos ve benadryl PRN for itching. Will monitor H/H q8h, currently low, also will get type/screen in the case of acute drop in hgb requiring transfusion. Plan: -Admit to purple team, Dwayneios -AZVF D5/HNS @ 75ml/hr -Benadryl PRN itching -Regular diet -H/H q8h -Vitals q8h documented in this encounter Administered Medications Inactive Administered Medications - up to 3 most recent administrations Medication Order MAR Action Action Date Dose Rate Site 0.9% NaCl injection 2 mL 2 mL (0.0549 mL/kg), Intracatheter, EVERY 4 HOURS, First dose on Mon12/29/13 at 0830, Until Discontinued, PIV flush Use positive pressure technique for last 0.5 ml. $ Given 12/30/2013 4:21 AM CDT 2 mL $ Given 12/29/2013 11:18 PM CDT 2 mL $ Given 12/29/2013 8:58 PM CDT 2 mL acetaminophen (TYLENOL) tablet 325 mg 325 mg (8.86 mg/kg), Oral, ONCE, 1 dose, On Mon12/25/13 at 0030, Maximum allowable Acetaminophen amount = 4 Grams (4000 mg) / 24 hours. $ Given 12/25/2013 12:14 AM CDT 325 mg acetaminophen (TYLENOL) tablet 325 mg 325 mg (8.86 mg/kg), Oral, EVERY 4 HOURS PRN, Fever, Mild Pain, Moderate Pain, Starting on Mon12/25/13 at 0037, Until 12/30/13 at 1032, Maximum allowable Acetaminophen amount = 4 Grams (4000 mg) / 24 hours. $ Given 12/29/2013 4:02 PM CDT 325 mg $ Given 12/29/2013 10:26 AM CDT 325 mg $ Given 12/28/2013 4:12 PM CDT 325 mg dextrose 5 % and 0.45% NaCl infusion at 50 mL/hr, Intravenous, CONTINUOUS, Starting on Mon12/25/13 at 0030, Until Mon12/29/13 at 2140 $ New Bag/Syringe 12/28/2013 9:23 PM CDT 50 mL/hr Rate Change 12/28/2013 6:00 PM CDT 50 mL/hr Rate Change 12/28/2013 8:26 AM CDT 75 mL/hr diphenhydrAMINE (BENADRYL) tablet 25 mg 25 mg (0.681 mg/kg), Oral, EVERY 4 HOURS PRN, Itching, Starting on Mon12/25/13 at 0016, Until Mon12/30/13 at 1032 $ Given 12/29/2013 8:55 PM CDT 25 mg $ Given 12/28/2013 9:23 PM CDT 25 mg $ Given 12/27/2013 8:30 PM CDT 25 mg esomeprazole (NexIUM) capsule 20 mg 20 mg (0.549 mg/kg), Oral, DAILY BEFORE BREAKFAST, First dose on Mon12/25/13 at 1115, Until Discontinued, See Chalkflyedex for NG tube administration Do not crush or chew. $ Given 12/30/2013 7:41 AM CDT 20 mg $ Given 12/29/2013 6:46 AM CDT 20 mg $ Given 12/28/2013 6:55 AM CDT 20 mg ibuprofen (MOTRIN) tablet 400 mg 400 mg (11 mg/kg), Oral, EVERY 6 HOURS PRN, Mild Pain, Moderate Pain, Starting on Mon12/27/13 at 1042, Until Mon12/27/13 at 1538, Maximum allowable amount = 3200 mg / 24 hours. $ Given 12/27/2013 12:20 PM CDT 400 mg documented in this encounter Active and Recently Administered Medications Times are shown in CDT. Scheduled Medication Order 12/28/2013 12/29/2013 12/30/2013 0.9% NaCl injection 2 mL (CANCELED) 2 mL (0.0549 mL/kg), Intracatheter, EVERY 4 HOURS, First dose on Mon12/29/13 at 0830, Until Discontinued, PIV flush Use positive pressure technique for last 0.5 ml. 0828 ($ Given - Provider: Ca Charles RN)1230 (Not Administered - Provider: Ca Charles RN - Reason: See Comments)1602 ($ Given - Provider: Ca Charles RN)2058 ($ Given - Provider: Linda Bryan RN)2318 ($ Given - Provider: Linda Bryan RN) 0421 ($ Given - Provider: Linda Bryan RN)0830 (Due) esomeprazole (NexIUM) capsule 20 mg (CANCELED) 20 mg (0.549 mg/kg), Oral, DAILY BEFORE BREAKFAST, First dose on Mon12/25/13 at 1115, Until Discontinued, See Micromedex for NG tube administration Do not crush or chew. 0655 ($ Given - Provider: Elin Martino RN) 0646 ($ Given - Provider: Linda Bryna RN) 0741 ($ Given - Provider: Kim Conley RN) Continuous Medication Order 12/28/2013 12/29/2013 12/30/2013 dextrose 5 % and 0.45% NaCl infusion (CANCELED) at 50 mL/hr, Intravenous, CONTINUOUS, Starting on Mon12/25/13 at 0030, Until 12/29/13 at 2140 0653 ($ New Bag/Syringe - Provider: Elin Martino RN)0826 (Rate Change - Provider: Michaelle Christian RN)1800 (Rate Change - Provider: Michaelle Christian RN)2123 ($ New Bag/Syringe - Provider: Linda Bryan RN) PRN Medication Order 12/28/2013 12/29/2013 12/30/2013 acetaminophen (TYLENOL) tablet 325 mg (CANCELED) 325 mg (8.86 mg/kg), Oral, EVERY 4 HOURS PRN, Fever, Mild Pain, Moderate Pain, Starting on Mon12/25/13 at 0037, Until Mon12/30/13 at 1032, Maximum allowable Acetaminophen amount = 4 Grams (4000 mg) / 24 hours. 1004 ($ Given - Provider: Michaelle Christian RN)1612 ($ Given - Provider: Michaelle Christian RN) 1026 ($ Given - Provider: Ca Charles, RN)1602 ($ Given - Provider: Ca Charles, RN) diphenhydrAMINE (BENADRYL) tablet 25 mg (CANCELED) 25 mg (0.681 mg/kg), Oral, EVERY 4 HOURS PRN, Itching, Starting on Mon12/25/13 at 0016, Until Mon12/30/13 at 1032 2123 ($ Given - Provider: Linda Bryan RN) 2055 ($ Given - Provider: Linda Bryan RN) documented in this encounter Care Teams Professor Of Surgery Relationship Specialty Start Date End Date Nohemy June MD [address] [place] [id number] PCP - General Family Medicine 12/20/13 03/28/19 documented as of this encounter
--- OUTSIDE RECORDS SUMMARY | 2024-04-04 01:21 | XMS_ITS | Encounter Summary ---
Author Organization [facility] - [facility] Address [address] [place] [address]. [place], [place] [id number] [place] [address] Care Team Providers Care Tow Bar Driver Name Role Phone None, Provider Primary Care Provider Eduardo Pelletier Primary Care Provider [phone] Reason for Visit * Reason Comments Lab (SCAN) Encounter Details Date Type Department Care Team (Latest Contact Info) Description 07/10/2023 Scan HEALTH INFO SRVCS Scanned, Doc Med Group Lab (SCAN) Social History Tobacco Use Types Packs/Day Years Used Date Smoking Tobacco: Every Day Cigarettes Smokeless Tobacco: Never Alcohol Use Standard Drinks/Week Comments Never 0 (1 standard drink = 0.6 oz pur e alcohol) PHQ-2 Answer Date Recorded Patient Health Questionnaire-2 [...] Procedure Name Priority Date/Time Associated Diagnosis Comments OUTSIDE LAB (SCAN ORDER) Routine 07/10/2023 documented in this encounter Results * OUTSIDE LAB (07/10/2023) HGB A1C 13.7 % HS ONBASE 07/10/2023 us Doc Med Group Scanned SCANNING Final Resu lt [facility] ONBASE documented in this encounter Visit Diagnoses Not on filedocumented in this encounter Care Teams Tow Bar Driver Relationship Specialty Start Date End Date None, Provider, PCP - General 11/27/20 07/11/23 Eduardo [place] [address] [place] [address] PCP - General Physician Collections Director Medical 07/12/23 08/14/23 documented as of this encounter
--- OUTSIDE RECORDS SUMMARY | 2024-04-04 01:21 | XMS_ITS | Encounter Summary ---
Author Organization [facility] Address [address] [place] [address]. [place], [place] [phone] [place] [address] Care Team Providers Care Fibre Optics Jointer Name Role Phone None, Provider Primary Care Provider Unavaila ble Encounter Details Date Type Department Care Team (Latest Contact Info) Description 03/12/2023 Travel Social History Tobacco Use Types Packs/Day [...] on filedocumented in this encounter Care Teams Fibre Optics Jointer Relationship Specialty Start Date End Date None, ProviderMD PCP - General 11/27/20 07/11/23 documented as of this encounter
--- OUTSIDE RECORDS SUMMARY | 2024-04-04 01:21 | XMS_ITS | Encounter Summary ---
Author Organization [facility] Address [address] [place] [address]. [place], [place] [phone] [place] [address] Care Team Providers Care Drive Man Name Role Phone Eduardo López Primary Care Provider [phone] Encounter Details Date Type Department Care Team (Latest Contact Info) Description 12/14/2023 Scan MG HEALTH INFO SRVCS Scanned, Doc Med Group Social History Tobacco Use Types Packs/Day Years [...] documented as of this encounter Care Teams Drive Man Relationship Specialty Start Date End Date Eduardo Ló[place] [address] [place] [address] PCP - General Physician Coater Brake Linings Medical 09/11/23 documented as of this encounter
--- OUTSIDE RECORDS SUMMARY | 2024-04-04 01:21 | XMS_ITS | Encounter Summary ---
Author Organization [facility] Address [address] [place] [address]. [place] [address] [place] [address] Care Team Providers Care Vulcanizing Machine Operator Name Role Phone None, Provider MD Primary Care Provider Unavaila ble Reason for Visit * Reason Comments Jaw Swelling Encounter Details Date Type Department Care Team (Late st Contact Info) Description 11/27/2020 6:24 PM CDT - 11/27/2020 7:41 PM CDT Emergency [facility] Emergency Room [address] [place] [address] Juaquin Vieira MD [address] [place] [address] Jaw Swelling Discharge Disposition: Home or Self Care [...] on file Sexual Orientation Not on file COVID-19 Exposure Response Date Recorded In the last month, have you been in contact with someone who was confirmed or suspected to have Coronavirus / COVID-19? No / Unsure 11/27/2020 5:53 PM CDT documented as of this encounter Last Filed Vital Signs Vital Sign Reading Time Taken Comments Blood Pressure 111/66 11/27/2020 6:27 PM CDT Pulse 75 11/27/2020 6:27 PM CDT Temperature 36.1 ??C (97 ??F) 11/27/2020 6:27 PM CDT Respiratory Rate 16 11/27/2020 6:27 PM CDT Oxygen Saturation 99% 11/27/2020 6:27 PM CDT Inhaled Oxygen Concentration - - Weight 53.5 kg (118 lb) 11/27/2020 6:27 PM CDT Height 162.6 cm (5' 4 ) 11/27/2020 6:27 PM CDT Body Mass Index 20.25 11/27/2020 6:27 PM CDT Body Mass Index Percentile 39.89% 11/27/2020 6:2 7 PM CDT Growth Chart: [facility] (Girls, 2- 20 Years) documented in this encounter Discharge Instructions * Attachments The following attachments cannot be sent through Care Everywhere. * Temporomandibular Joint (TMJ) Disorders (Georgian) documented in this encounter Medications at Time of Discharge melatonin 5 MG tablet Take 2 tablets (10 mg total) by mouth nightly. escitalopram 20 MG tablet Take 20 mg by mouth daily. 07/18/2023 documented as of this encounter ED Notes * Juaquin Vieira MD - 11/27/2020 7:23 PM CDT Chief Complaint Chief Complaint Patient presents with ??? Jaw Swelling History of Present Illness 15-year-old female with longstanding history of right-sided jaw popping now is having increasing pain in that area. She notes that when she opens her jaw to the fullest the jaw will pop or click but she is able to open and close the jaw. Now she is having pain and some mild swelling at the TMJ area. No dental pain. No fevers or chills. No rash. No injury to the area. Medical History ALLERGIES: No Known Allergies MEDICATIONS: Prior to Admission medications Medication Sig Start Date End Date Taking? Authorizing Provider escitalopram 20 MG tablet Take 20 mg by mouth daily. Yes Doc Abstract melatonin 5 MG tablet Take 10 mg by mouth nightly. Yes Doc Abstract PAST MEDICAL HISTORY: Past Medical History: Diagnosis Date ??? Anxiety 2019 ??? Depression 2019 PAST SURGICAL HISTORY: History reviewed. No pertinent surgical history. FAMILY HISTORY: Family History Problem Relation Name Age of Onset ??? No Known Problems Mother ??? No Known Problems Father ??? No Known Problems Sister SOCIAL HISTORY: Social History Tobacco Use ??? Smoking status: Never Smoker ??? Smokeless tobacco: Never Used Substance Use Topics ??? Alcohol use: Never ??? Drug use: Never Review of Systems Review of Systems Review of systems included in the HPI and otherwise negative Physical Exam Filed Vitals: 11/27/20 1827 BP: (!) 111/66 Pulse: 75 Resp: 16 Temp: 97 ??F (36.1 ??C) TempSrc: Temporal SpO2: 99% Weight: 53.5 kg (118 lb) Height: 5' 4 (1.626 m) Physical Exam General- patient in no acute distress HEENT-pupils equal reactive, sclera anicteric, oral mucosa pink and moist Neck-supple, no meningismus Chest-clear to auscultation, no rales rhonchi or wheezes Cardiovascular-regular rate and rhythm, no murmurs rubs or gallops Abdomen-soft, nontender, nondistended, normal bowel sounds -deferred Extremities-capillary refills less than 2 seconds, full range of motion without pain Skin-warm, no pallor Neuro-5 out of 5 strength bilateral upper and lower extremities, no facial droop, clear speech Psychiatric-patient appears calm, no signs of anxiety or distress Diagnostic Studies / Procedures ELECTROCARDIOGRAMS: No results found for this visit on 11/27/20. LABORATORY STUDIES: No results found for this visit on 11/27/20. IMAGING STUDIES No orders to display ED Course / Medical Decision Making Patient presents with signs of TMJ arthritis. No evidence of infection, no evidence of dislocation patient is able to open and close the jaw although when she bites down she is not able to completelyocclude the right side of the jaw. I believe this is due to inflammation and swelling of the muscles and joint, I do not note any dislocation although the jaw may be subluxing when she is popping the jaw. Patient will follow with her fishing tool technician oil well who will assist her in seeing oral surgeon if necessary. We will continue with NSAIDs and ice pack return for worsening or any concerns Clinical Impression TMJ arthritis (Primary) Disposition: Discharge Juaquin Vieira MD 11/27/201928 * Ramila Lee RN - 11/27/2020 6:26 PM CDTSummary: jaw swelling Jaw swelling, popping and difficulty closing mouth on R side. Started this AM. Unable to eat and chew. Using ice and taking ibuprofen. documented in this encounter Plan of Treatment Not on file documented as of this encounter Visit Diagnoses Diagnosis TMJ arthritis- Primary Other specified temporomandibular joint disorders documented in this encounter Care Teams Vulcanizing Machine Operator Relationship Specialty Start Date End Date None, Provider, PCP - General 11/27/20 07/11/23 documented as of this encounter
--- OUTSIDE RECORDS SUMMARY | 2024-04-04 01:21 | XMS_ITS | Encounter Summary ---
Author Organization [facility] Address [address] [place] [address]. [place], [place] [id number] [place] [address] Care Team Providers Care Hangersmith Name Role Phone Unavailable Primary Care Provider Unavailabl e Encounter Details Date Type Department Care Team (Late st Contact Info) Description 08/26/2008 Abstract [facility] Emergency Room [address] [place], [place] [id number] James Sandhu MD [address] [place] [address] Social History Tobacco Use Types Packs/Day Years Used Date Smoking Tobacco: Never Assessed Comments Unknown Sex and Gender Information Value Date Recorded Sex Assigned at Not on file Legal Sex Female 5:13 PM CDT Gender Identity Not on file Sexual Orientation Not on file documented as of this encounter Plan of Treatment Not on file documented as of this encounter Visit Diagnoses Not on filedocumented in this encounter
--- OUTSIDE RECORDS SUMMARY | 2024-04-04 01:21 | XMS_ITS | Encounter Summary ---
Author Organization [facility] Address [address] [place] [address]. [place], [place] [address] [place] [address] Care Team Providers Care Manager Rail Name Role Phone Eduardo López Primary Care Provider [phone] Encounter Details Date Type Department Care Team (Latest Contact Info) Description 07/18/2023 Travel Social History Tobacco Use Types Packs/Day [...] documented as of this encounter Care Teams Manager Rail Relationship Specialty Start Date End Date Eduardo Ló[place] [address] [place] [address] PCP - General Physician Seed Potato Arranger Medical 07/12/23 08/14/23 documented as of this encounter
--- OUTSIDE RECORDS SUMMARY | 2024-04-04 01:21 | XMS_ITS | Encounter Summary ---
Author Organization [facility] Address [address] [place] [address]. [place], [place] [id number] [place] [id number] Care Team Providers Care Real Estate Manager Name Role Phone Eduardo López Primary Care Provider [phone] Reason for Referral * Consultation (Urgent) - Closed Specialty Diagnoses / Procedures Referred By Dali t Referred To Contact ENDOCRINOLOGY Diagnoses Type 1 diabetes mellitus without complication ([facility]) Procedures OFFICE/OUTPATIENT NEW LOW MDM 30-44 MINUTES OFFICE/OUTPT VISIT,NEW,LEVL IV OFFICE/OUTPT VISIT,NEW,LEVL V OFFICE/OUTPT VISIT,EST,LEVL III OFFICE/OUTPT VISIT,EST,LEVL IV OFFICE/OUTPT VISIT,EST,[place] V Eduardo [place] [address] [place] [address] Phone: tel: fax: [facility] [address] [place] [address] Phone: tel: fax: Referral ID Status Reason Start Date Expiration Date Visits Re quested Visits Authorized [id number] Closed 07/20/2023 07/19/2024 99 99 Scheduling Instructions PLEASE REFER PT TO DR WATKINS, WAS REFERRED TO DR VARELA AND HE WOULD NOT SEE HER UNTIL . PT CAN NOT WAIT THAT LONG NEWLY DIAGNOSED TYPE 1 DIABETIC. PLEASE TRY TO GET PT APT [facility]. Encounter Details Date Type Department Care Team (Late st Contact Info) Description 07/20/2023 Orders Only [facility] Family & Internal Medicine [facility] [address] [place] [phone] Eduardo Ló[place] [address] [place] [address] Social History Tobacco Use Types Packs/Day Years [...] Priority Associated Diagnoses Orde r Schedule Ambulatory referral to Endocrinology (OTHER) Referral Routine Type 1 diabetes mellitus without complication ([facility]) Ordered: 07/20/2023 documented as of this encounter Visit Diagnoses Diagnosis Type 1 diabetes mellitus without complication ([facility])- Primary Type I (juvenile type) diabetes mellitus without mention of complication, not stated as uncontrolled documented in this encounter Additional Health Concerns Assessment Noted Time PHQ-9 Depression Total Score: 14 024 11:38 AM CDT documented as of this encounter Care Teams Real Estate Manager Relationship Specialty Start Date End Date Eduardo Ló[place] [address] [place] [address] PCP - General Physician [employer] 07/12/23 08/14/23 documented as of this encounter
--- OUTSIDE RECORDS SUMMARY | 2024-04-04 01:21 | XMS_ITS | Encounter Summary ---
Author Organization [facility] Address [address] [place] [address]. [place], [place] [id number] [place] [address] Care Team Providers Care Circuit Tester Name Role Phone None, Provider Primary Care Provider Eduardo Pelletier Primary Care Provider [phone] Reason for Visit * Reason Comments Lab (SCAN) Image (SCAN) ECG (SCAN) Encounter Details Date Type Department Care Team ([facility] Contact Info) Description 07/10/2023 Scan HEALTH INFO [facility] Scanned, [facility] Lab (SCAN); Image (SCAN); ECG (SCAN) Social History Tobacco Use Types Packs/Day [...] Procedure Name Priority Date/Time Associated Diagnosis Comments ECG GENERIC (SCAN ORDER) 07/10/2023 OUTSIDE LAB (SCAN ORDER) 07/10/2023 OUTSIDE LAB (SCAN ORDER) 07/10/2023 IMAGE GENERIC 07/10/2023 documented in this encounter Results * OUTSIDE LAB (SCAN ORDER) (07/10/2023) 07/10/2023 [facility] Scanned SCANNING Final Resu lt * OUTSIDE LAB (SCAN ORDER) (07/10/2023) 07/10/2023 [facility] Scanned SCANNING Final Resu lt * IMAGE GENERIC (07/10/2023) Anatomical Region Laterality Modality Other 07/10/2023 [facility] Scanned SCANNING Final Resu lt * ECG GENERIC (SCAN ORDER) (07/10/2023) 07/10/2023 [facility] Scanned SCANNING Final Resu lt documented in this encounter Visit Diagnoses Not on filedocumented in this encounter Care Teams Circuit Tester Relationship Specialty Start Date End Date None, Provider, PCP - General 11/27/20 07/11/23 Eduardo López [place] [address] [place] [address] PCP - General Physician Cylinder Inspector [employer] 07/12/23 08/14/23 documented as of this encounter
--- OUTSIDE RECORDS SUMMARY | 2024-04-04 01:21 | XMS_ITS | Encounter Summary ---
Author Organization 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 Has been 6 [address]. Placed on antibiotics then told not to take them. Strept negative yesterday.Red rash to body, arms and legs. Both checks red. * Auth/Cert - Closed Specialty Diagnoses / Procedures Referred By Dali deleon Referred To Contact Diagnoses Spider bite Referral ID Status Reason Start Date Expiration Date Visits Re quested Visits Authorized [id number] Closed 1 1 Encounter Details Date Type Department Care Team (Latest Contact Info) Description 12/20/2013 11:33 AM CDT - 12/22/2013 8:46 AM CDT Hospital Encounter CG [address] [place] [address] Juaquin Hernandez MD [address] [place] [id number] Vanessa Banks MD [address] [place] [phone] Medical Inpatient Discharge Disposition: Home or Self [...] Sign Reading Time Taken Comments Blood Pressure 88/50 12/22/2013 7:39 AM CDT Pulse 84 12/22/2013 7:39 AM CDT Temperature 36 ??C (96.8 ??F) 12/22/2013 7:39 AM CDT Respiratory Rate 20 12/22/2013 7:39 AM CDT Oxygen Saturation - - Inhaled Oxygen Concentration - - Weight 37.2 kg (82 lb) 12/20/2013 8:47 PM CDT Height 134.6 cm (4' 5 ) 12/20/2013 8:47 PM CDT Body Mass Index 20.52 12/20/2013 8:47 PM CDT Body Mass Index Percentile 86.51% 12/20/2013 8:4 7 PM CDT Growth Chart: [facility] (Girls, 2- 20 Years) documented in this encounter Functional Status Functional Status Response Date of Assess ment Is person deaf or have serious hearing difficult y? No 12/22/2013 Is person blind or have serious difficulty seein g? No 12/22/2013 Does person have serious dif ficulty walking/climbing stairs? No 12/22/2013 Does person have difficulty dressing/bathing? No 12/22/2013 Does person have difficulty doing errands alone? No 12/22/2013 Cognitive Status Response Date of Assessm ent Does person have difficulty concentrating/remembering/making decisions? No 12/22/2013 documented as of this encounter Discharge Summaries * Chase Cole - 12/22/2013 9:38 AM CDT Images from the original note were not included. Attending Physician: Vanessa Banks MD Office 12/22/2013 9:38 AM Pediatric Discharge Summary Pt. Name: Himanshu Damon : 2005 Attending Physician : Vanessa Banks MD Admission Date: 12/20/2013 Discharge Date: 12/22/2013 Hospital Course: Himanshu was admitted on 12/20/2013 for symptoms of pain and tenderness in her right leg lasting 6 days prior to admission, and later a whole body rash. She had already been to 6 clinics and EDs, and had been on clindamycin and a cephalosporin. Eventually her mom got in contact with Dr. Joyner, who believed her symptoms were consistent with a brown recluse bite. She was admitted for management of her leg pain as well as the rash/possible urticaria. She was started on IV clindamycin and benadryl. During her admission the rash greatly diminished in area and was nearly resolved on her arms, abdomen, and back. Her leg pain was mostly concentrated around the area of the bite, and had begun to improve by discharge. Discharge Diagnosis(es): Acute hemolysis Condition on Discharge: Good Consultations: None Diagnostic studies: None Procedures: None Relevant Labs: My review of lab results is significant for repeat CBCs normal. There are no new lab results to review at this time. Discharge Physical Exam (relevant findings include): General: lying in bed on exam in no acute distress Head: NC/AT Eyes: sclera and conjunctiva clear, EOMI and PERRL, lids normal Nose: clear Oropharynx: moist mucous membranes, no pharyngeal erythema, no tonsilar enlargement Neck: supple, non-tender, with full ROM, and no anterior/posterior cervical or supraclavicular lymphadenopathy Cardiovascular: regular rate and rhythm, normal S1 and S2, no murmurs Chest: breath sounds clear to auscultation bilaterally without rales or wheezes Abdomen: soft, non-tender, non-distended and no hepatosplenomegaly or masses Musculoskeletal: No clubbing, cyanosis or edema Skin: 2mm blue/black lesion on lateral posterior right calf. Erythema surrounding lesion present. Erythema/urticaria on previous exams is greatly decreased, no longer appreciable on upper extremitiesor trunk. Pending Results: Lab, Imaging, Vascular, PFT, Consult, Card Rehab, PT / OT, BehavMed, Immunizations None Discharge Medications: Discharge Medication List As of 12/22/2013 8:47 AM START taking these medications Instructions Authorizing Provider clindamycin 300 MG capsule Commonly known as: CLEOCIN Take 1 Cap by mouth 3 times daily for 5 days. Paco Currie CHANGE how you take these medications Instructions Authorizing Provider diphenhydrAMINE 25 MG tablet What changed: how much to take Commonly known as: BENADRYL Take 1 Tab by mouth every 4 hours as needed for Itching. Paco Crurie CONTINUE taking these medications Instructions Authorizing Provider ibuprofen 200 MG tablet Commonly known as: MOTRIN Take 200 mg by mouth every 6 hours as needed for Pain. Discharge Procedure Orders Why you were hospitalized Order Specific Question Answer Comments Your discharge diagnosis is Brown recluse spider bite [[id number]] Follow up with Primary Care Provider (PCP) Our records show your Primary Care Provider (PCP) is Nohemy June. Order Specific Question Answer Comments Follow Up Instructions: in the next 1-2 weeks No special diet needed Resume normal home diet as tolerated. Activity as tolerated Rest today, and increase activity level tomorrow as tolerated. When to call [facility] if you have questions or concerns, or for any of the following issues: -- temperature higher than 101 F -- if Adisyn has increased shortness of breath or wheezing -- if Adisyn's pain gets worse or does not get better after taking pain medication(s) as directed -- if you see a lot of bleeding from Adisyn's IV site -- if Adisyn's incision or IV site looks infected (red, swollen, warm to the touch, or non-clear, foul-smelling drainage) Return to school Adisyn may return to school pain is under control and able to walk . For relief of pain Adisyn should take Tylenol or Motrin for relief of pain or discomfort. Follow the recommended dosing instructions on the medication label. Contact Information for Follow-Up Providers Nohemy June MD Specialty: Family Medicine Relationship: PCP - General [address] [place] [phone] Chase Cole [facility] CC: Nohemy June [address] [place] [phone] Associated attestation - Vanessa Banks MD - 12/23/2013 9:11 AM CDT Vanessa Banks MD documented in this encounter Medications at Time of Discharge Medication Sig Dispensed Refills Start Date End Date ibuprofen (MOTRIN) 200 MG tablet Take 200 mg by mouth every 6 hours as needed for Pain. clindamycin (CLEOCIN) 300 MG capsule Take 1 Cap by mouth 3 times daily for 5 days. 15 Cap 0 12/22/2013 12/27/2013 diphenhydrAMINE (BENADRYL) 25 MG tablet Take 1 Tab by mouth every 4 hours as needed for Itching. 30 Tab 1 12/22/2013 12/30/2013 documented as of this encounter Progress Notes * Vanessa Banks MD - 12/22/2013 9:51 AM CDT Images from the original note were not included. Pediatric Attending Daily Progress Note 12/22/2013 9:51 AM Hospital Day: 2 I have seen Adisyn on rounds and have reviewed the findings with the resident. My findings (wolf elements and supplemental information) are as follows: Clinical Course Much better, decreased rash, decreased pain Exam: BP 88/50 Pulse 84 Temp(Src) 96.8 ??F Resp 20 Wt 37.195 kg (82 lb) General: well appearing Cardiovascular: regular rate and rhythm, normal S1 and S2, no murmurs Chest: breath sounds symmetrical without rales or wheezes Skin: 6mm area posterior right leg just inferior to popliteal area with necrosis, surrounded by mild swelling and mild erythema, diffuse macular/papular sandpaper-like rash, much less red Lab/Other Information H/H unchanged Hospital Problems Acute hemolysis Assessment & Plan Assessment: Brown recluse spider bite VS strep cellulitis. Plan: Clindamycin Motrin PRN pain Regular diet, encourage fluid intake See resident's note of 12/22/2013 for further details. Vanessa Banks MD [phone] * Kim Conley RN - 12/21/2013 6:42 PM CDT Problem: Infection Goal: Patient exhibits no evidence of infection Outcome: Ongoing Adisyn is afebrile. Goal: Patient exhibits improvement of current disease Outcome: Ongoing Goal: Patient???s risk of hospital-acquired infection is minimized Outcome: Ongoing PPE worn by staff. Family and visitors encouraged to wear PPE when in room. Problem: Skin Integrity Goal: Patient will maintain or improve skin integrity Outcome: Ongoing Himanshu's rash is becoming less itchy. Goal: Skin will be intact without erythema or breakdown Outcome: Ongoing Goal: Patient/Family will demonstrate knowledge of self-care management skills Outcome: Ongoing Problem: Isolation Goal: Prevent Transmission of Infection Outcome: Ongoing * Vanessa Banks MD - 12/21/2013 10:03 AM CDT Himanshu Damon is a 8 y.o. female who presented with rash, possible spider bite and cellulitis. Mother reports that symptoms started 12/15 with small bruised looking area to posterior right calf. Patient complaining of pain at that time. Pt taken to an urgent care the next morning where she was diagnosed with cellulitis and prescribed clindamycin. On 12/17, patient began with rash on legs and spreading to arms following 2nd dose of clidamycin. She was taken to see PCP where she was told rash was drug reaction and stopped clinda, but started a cephalosporin. Rash continue to worsen and patient continued to leg pain, so she was taken to other OSH ED where strep was negative and all abx were dc'd. Mom sent photo to Dr. Joyner who recommended coming to ED. Benadryl at home has not helped the rash. Patient states it is mainly itchy on right leg, with some mild itching to left thighand buttocks and has significant pain in the right leg with difficulty walking or bearing weight. * Chase Cole - 12/21/2013 9:19 AM CDT Images from the original note were not included. Pediatric Sub-Scrum Project Manager Daily Progress Note Himanshu Damon 12/21/2013 9:19 AM Hospital Day: 1 Clinical Course Overnight mom says the rash has persisted throughout her whole body. It itches more in the mornings, but is also itchy throughout the day. Her leg also continues to hurt. Bearing weight is difficult due to pain in her right leg. Symptoms have not worsened since admission, but have also not shown any improvement yet. No new symptoms such as fever, nausea, vomiting, abdominal pain, diarrhea. Objective BP 90/60 Pulse 88 Temp(Src) 97.8 ??F Resp 18 Wt 37.195 kg (82 lb) 12/20 0700 - 12/21 0659 In: 404 [I.V.:404] Out: - Exam: General: tired appearing girl lying in bed on exam in no acute distress Head: NC/AT Eyes: sclera and conjunctiva clear, EOMI and PERRL, lids normal Nose: clear Oropharynx: moist mucous membranes, no pharyngeal erythema, no tonsilar enlargement Neck: supple, non-tender, with full ROM, and no anterior/posterior cervical or supraclavicular lymphadenopathy Cardiovascular: regular rate and rhythm, normal S1 and S2, no murmurs Chest: breath sounds clear to auscultation bilaterally without rales or wheezes Abdomen: soft, non-tender, non-distended and no hepatosplenomegaly or masses Musculoskeletal: No clubbing, cyanosis or edema Skin: 2mm blue/black lesion on lateral posterior right calf. Large erythematous macular areas of rash with presumed urticaria noted on legs bilaterally, also noted on trunk, back, axillae, arms, neck. Lab/Other Information Recent Results (from the past 24 hour(s)) URINALYSIS ROUTINE AUTO Collection Time 12/21/13 12:02 AM Result Value Range Color UA Yellow Straw, Yellow, Dark Yellow Clarity UA Clear Specific [place] UA >=1.030 1.005-1.030 pH UA 6.0 5.0-8.0 pH Protein UA Negative Negative Blood UA 2+ (*) Negative Leukocyte UA Negative Negative Nitrite UA Negative Negative Glucose UA Negative Negative Ketone UA Negative Negative Bili UA Negative Negative Urobilinogen UA 0.2 0.1-1.0 EU/dL URINALYSIS MICROSCOPIC ONLY Collection Time 12/21/13 12:02 AM Result Value Range RBC UA 5-10 (*) 0-2, 2-5 # /hpf WBC UA 2-5 0-2, 2-5 # /hpf Bacteria UA Trace None Seen, Trace Epithelial Cell UA 0-2 0-2, 2-5 Mucus 1+ CBC W AUTO DIFFERENTIAL Collection Time 12/21/13 12:16 AM Result Value Range WBC 5.4 4.5-14.5 x10^9/L RBC 4.18 4.00-5.20 x10^12/L Hgb 11.7 11.5-15.5 gm/dL HCT 34.3 (*) 35.0-45.0 % MCV 82.1 77.0-95.0 fl MCH 28.0 25.0-33.0 pg MCHC 34.1 31.0-37.0 gm/dL Plt Ct 200 100-400 x10^9/L RDW-CV 12.9 11.5-14.0 % MPV 9.3 6.0-9.5 fl Neutro 37.9 24.0-66.0 % Lymph 50.4 22.0-61.0 % [place] 7.6 3.0-15.0 % Eos 3.7 0.0-10.0 % Baso 0.4 Immature Grans 0.0 Neutro Abs 2.05 Lymph Abs 2.72 [place] Abs 0.41 Eosin Abs 0.20 Baso Abs 0.02 Immature Grans Abs 0.00 COMPREHENSIVE METABOLIC PANEL Collection Time 12/21/13 12:16 AM Result Value Range Glucose 93 70-105 mg/dL Sodium 139 136-145 mmol/L Potassium 4.0 3.5-5.1 mmol/L Chloride 107 98-107 mmol/L CO2 20 20-28 mmol/L Calcium 9.68 9.12-10.48 mg/dL Anion Gap 12 5-20 mmol/L BUN 12.4 6.7-19.6 mg/dL Creatinine 0.59 0.53-0.80 mg/dL eGFR MDRD eGFR MDRD AFR AMR Alk Phos 269 100-320 U/L ALT/SGPT 17 8-65 U/L AST/SGOT 23 3-35 U/L Protein Total 6.5 6.2-9.1 gm/dL Albumin 3.9 3.6-4.9 gm/dL Bili Total 1.7 (*) 0.3-1.2 mg/dL CK BLOOD Collection Time 12/21/13 12:16 AM Result Value Range CK 49 29-168 U/L CBC W MANUAL DIFFERENTIAL Collection Time 12/21/13 8:08 AM Result Value Range WBC 4.9 4.5-14.5 x10^9/L RBC 3.86 (*) 4.00-5.20 x10^12/L Hgb 10.9 (*) 11.5-15.5 gm/dL HCT 31.9 (*) 35.0-45.0 % MCV 82.6 77.0-95.0 fl MCH 28.2 25.0-33.0 pg MCHC 34.2 31.0-37.0 gm/dL RDW-CV 12.9 11.5-14.0 % MPV 9.6 (*) 6.0-9.[address] 180 100-400 x10^9/L DIFFERENTIAL MANUAL Collection Time 12/21/13 8:08 AM Result Value Range WBC Auto 4.9 4.5-14.5 x10^9/L Neutro Manual 44 24-66 % Lymph Manual 37 22-61 % [place] Manual 17 (*) 3-15 % Eos Manual 2 0-10 % Cells Counted 100 RBC Morph Normal WBC Morph Normal Hospital Problems Cellulitis and rash Assessment & Plan Assessment: 8 yo with erythematous, patchy, raised, itchy rash of calf. Initially begin as small bruise to posterior calf, enlarging from about 1mm. Brown recluse spider bite VS cellulitis. Afebrile, presence of urticaria, looks more like atopic skin rash than cellulitis. Plan: IV clindamycin Benadryl 25mg Q8H for rash Motrin PRN pain MIVF - May increase to 1 1/2 MIVF if evidence of hemolysis on CBC or poor PO intake Regular diet Vitals Q8H, monitor I/O's Monitor for hemolysis in the case of possible brown recluse spider bite- repeat CBC today Chase Cole, MSIV Associated attestation - Vanessa Banks MD - 12/21/2013 9:58 AM CDT Vanessa Banks MD * Rea Galvan RN - 12/21/2013 5:51 AM CDT Problem: Infection Goal: Patient exhibits no evidence of infection Outcome: Ongoing Currently pt has no fever, shots are up to date and mom is debating flu shot. Pt does have a rash d/t spider bite. Will continue to monitor. Pt on contact isolation. Goal: Patient???s risk of hospital-acquired infection is minimized Outcome: Ongoing Pt placed on IVABX and is on contact isolation. Problem: Skin Integrity Goal: Patient will maintain or improve skin integrity Outcome: Ongoing Pt currently has a generalized rash. Will continue to monitor size and shape and if it has spread. * Brianna Gonzales, - 12/21/2013 1:42 AM CDT Himanshu Damon is a 8 y.o. female who presents with rash, possible spider bite and cellulitis. Mother reports that symptoms started Monday with small bruised looking area to posterior right calf. Patient complaining of pain at that time. Following morning, appeared larger and later thatday, noted to have increased pain at school with surrounding erythema. Pt taken to an urgent care where she was diagnosed with cellulitis and prescribed clindamycin. Following day on Monday, patientbegan with rash on legs and spreading to arms following 2nd dose of clidamycin. No other medications had been given. Himanshu was taken to see PCP where she was told rash was drug reaction and given add itional cephalosporin. Rash continue to worsen and patient continued to leg pain, so she was taken to other OSH ED where strep was negative. Patient ws then instructed to stop all medications and that initial lesion was brown recluse bite. Rash continued to worsen on extremities, trunk and face so mother called her sister who spoke with Dr. Joyner. Family sent picture and were told it was consistent with brown recluse spider bite and patient was having allergic reaction. Mother has been using Benadryl at home without change in rash. Patient states it is mainly itchy on right leg, with some mild itching to left thigh and buttocks. Naran continues to have associated pain in the right leg with difficulty walking or bearing weight and swelling of the right leg and ankle. Himanshu states she has had some abdominal pain also since Monday and some decreased PO intake. Patient has been afebrile with no URI symptoms, no vomiting or change in bowel habits. documented in this encounter H&P Notes * Vanessa Banks MD - 12/21/2013 10:14 AM CDT Images from the original note were not included. Attending Physician: Vanessa Banks MD Office 12/21/2013 10:14 AM Pediatric Attending Admission Note Admit Date: 12/20/2013 11:33 AM I have seen Himanshu on rounds and have reviewed the findings with the resident. My findings (wolf elements and supplemental information) are as follows: Chief Complaint Possible spider bite and rash History of Present Illness Himanshu Damon is a 8 y.o. female who presented with rash, possible spider bite and cellulitis. Mother reports that symptoms started 12/15 with small bruised looking area to posterior right calf. Patient complaining of pain at that time. Pt taken to an urgent care the next morning whereshe was diagnosed with cellulitis and prescribed clindamycin. On 12/17, patient began with rash on legs and spreading to arms following 2nd dose of clidamycin. She was taken to see PCP where she was told rash was drug reaction and stopped clinda, but started a cephalosporin. Rash continue to worsen and patient continued to leg pain, so she was taken to other OSH ED where strep was negative and allabx were dc'd. Mom sent photo to Dr. Joyner who recommended coming to ED. Benadryl at home has not helped the rash. Patient states it is mainly itchy on right leg, with some mild itching to left thigh and buttocks and has significant pain in the right leg with difficulty walking or bearing weight. Exam BP 90/60 Pulse 88 Temp(Src) 97.8 ??F Resp 18 Wt 37.195 kg (82 lb) General: ill appearing, non-toxic Eyes: Sclera/Conjunctiva: are noted to be clear bilaterally, with no eye drainage Cardiovascular: regular rate and rhythm, normal S1 and S2, no murmurs Chest: breath sounds symmetrical without rales or wheezes Abdomen: soft, non-tender, non-distended and no hepatosplenomegaly or masses Skin: 7mm area posterior right leg just inferior to popliteal area with necrosis, surrounded by swelling and erythema, diffuse macular/papular sandpaper-like rash Lab/Other Information Nl wbc count with increased monos H/H 10.9/31.9, which is decreased compared to admission CK 49 Tbili 1.7, CMP otherwise wnl UA 2+ bld, micro with 5-10 RBC.hpf Hospital Problems Acute hemolysis Assessment & Plan Assessment: 8 yo with lesion on LE [...] Vitals Q8H, monitor I/O's CBC tomorrow AM See resident's H&P for further details. Vanessa Banks MD [phone] CC: Nohemy June [address] [place] [phone] * Brianna Gonzales, - 12/21/2013 4:33 AM CDT Images from the original note were not included. Pediatric Resident Admission Note Admit Date: 12/20/2013 11:33 AM Chief Complaint Persistent rash, leg lesion (possible spider bite) and pain History of Present Illness Himanshu Damon is a 8 y.o. female who presents with rash, possible spider bite and cellulitis. Mother reports that symptoms started Monday with small bruised looking area to posterior right calf. Patient complaining of pain at that time. Following morning, appeared larger and later thatday, noted to have increased pain at school with surrounding erythema. Pt taken to an urgent care where she was diagnosed with cellulitis and prescribed clindamycin. Following day on Monday, patientbegan with rash on legs and spreading to arms following 2nd dose of clidamycin. No other medications had been given. Himanshu was taken to see PCP where she was told rash was drug reaction and given add itional cephalosporin. Rash continue to worsen and patient continued to leg pain, so she was taken to other OSH ED where strep was negative. Patient ws then instructed to stop all medications and that initial lesion was brown recluse bite. Rash continued to worsen on extremities, trunk and face so mother called her sister who spoke with Dr. Joyner. Family sent picture and were told it was consistent with brown recluse spider bite and patient was having allergic reaction. Mother has been using Benadryl at home without change in rash. Patient states it is mainly itchy on right leg, with some mild itching to left thigh and buttocks. Adisyn continues to have associated pain in the right leg with difficulty walking or bearing weight and swelling of the right leg and ankle. Adisyn states she has had some abdominal pain also since Monday and some decreased PO intake. Patient has been afebrile with no URI symptoms, no vomiting or change in bowel habits. Medical History Medical History: Past Medical History Diagnosis Date ??? Medical history reviewed with no changes previously healthy with no previous hospitalizations Surgical History: Past Surgical History Procedure Laterality Date ??? Negative surgical history Family history: Non-contributory Social History: History Social History Narrative Lives at home with mother, step-father and brother. No sick contacts or family members with similarsymptoms. Immunizations Immunization status: stated as current, but no records available. Allergies No Known Allergies Home Medications Outpatient Prescriptions Marked as Taking for the 12/20/13 encounter (Hospital Encounter) Medication Sig ??? diphenhydrAMINE (BENADRYL) 25 MG tablet Take by mouth every 4 hours as needed for Itching. ??? ibuprofen (MOTRIN) 200 MG tablet Take 200 mg by mouth every 6 hours as needed for Pain. Review of Systems Constitutional - Negative for fever. Eyes - Negative for crusting/matting. Negative for eye discharge. ENT - Negative for ear pain. Negative for congestion. Negative for rhinorrhea. Negative for sore throat. Respiratory - Negative for cough. Negative for shortness of breath. Negative for wheezing. Cardiovascular - Negative for chest pain. Negative for cyanosis. Gastrointestinal - Positive for abdominal pain. Negative for change in bowel habits. Positive for poor appetite. Negative for vomiting. Skin - Positive for bruising. Positive for itching. Positive for rash. Hematologic - Negative for excessive bruising. Negative for swollen nodes. Musculoskeletal - Positive for musculoskeletal pain. Positive for swelling. Neurological - Positive for headaches. Negative for weakness. Psychiatric - Negative for confusion. Endocrine - Negative for polydipsia. Negative for polyuria. Allergy/Imm - Negative for frequent infections. Physical Exam BP 100/50 Pulse 100 Temp(Src) 97.8 ??F Resp 20 Wt 37.195 kg (82 lb) General: well appearing, non-toxic, alert, talkative, in no acute distress Head: NC/AT Eyes: sclera and conjunctiva clear, lids normal Nose: no significant discharge Oropharynx: moist mucous membranes, no pharyngeal erythema, no tonsilar enlargement Neck: supple, non-tender, with full ROM, and no lymphadenopathy Cardiovascular: regular rate and rhythm, normal S1 and S2, no murmurs Chest: breath sounds symmetrical without rales or wheezes, good air movement and relaxed breathing without tachypnea or accessory muscle use Abdomen: soft, non-tender, non-distended and normal bowel sounds Musculoskeletal: No clubbing or cyanosis; mild edema of right ankle Skin: diffuse dry, erythematous, fine rash in patches: worse over right lower extremity with patches noted to left thigh and bilateral medial upper extremites, Diffuse fine papular rash to trunk and erythema of bilateral cheeks. Neuro: alert, oriented, normal speech, no focal findings or movement disorder noted Lab/Other Information CBC- normal with H/H of 11.7/34.3 UA- 2+ blood, 5-10 RBC,otherwise normal. CMP- Tbili slightly elevated to 1.7, otherwise normal. CK- Normal Hospital Problems Cellulitis and rash Assessment & Plan Assessment: 8 yo with erythematous, patchy, raised, itchy rash of calf. Initially begin as small bruise to posterior calf, enlarging from about 1mm Plan: IV clindamycin Benadryl 25mg Q8H for rash Motrin PRN pain MIVF Regular diet Vitals Q8H, monitor I/O's Monitor for hemolysis in the case of possible brown recluse spider bite- repeat CBC in AM Brianna Gonzales DO CC: Nohemy June [address] [place] [phone] Associated attestation - Vanessa Banks MD - 12/21/2013 10:15 AM CDT Vanessa Banks MD documented in this encounter Consult Notes * Taylor Feliz RD/VIKRAM - 12/21/2013 1:07 PM CDTAssociated Order(s): IP CONSULT TO NUTRITIONAL SERV Nutrition consult received per nursing screen. Patient has been evaluated by clinical nutrition anddoes not require nutrition intervention at this time. Ramila Feliz, , RD, LD [id number] (weekend coverage) documented in this encounter ED Notes * Juaquin Hernandez MD - 12/20/2013 11:33 PM CDT Provider contact with the patient: 12/20/2013 23:33 Himanshu Damon [id number] [facility] EMERGENCY DEPARTMENT History Chief Complaint Patient presents with ??? Rash To ER for spider bite to right calf. Has been [address]. Placed on antibiotics then told not to take them. Strept negative yesterday.Red rash to body, arms and legs. Both checks red. I have read the resident/[employer] history. Unless appended by me below, I agree with findings as documented. HPI Comments: 8 yo with rash and suspected spider bite. Started abrasion on right leg 12/15... Then rash around it, then necrotic, then intermittent systemic papular rash; started on clindamycin in outside ED 4 days ago; not improving... Seen at [facility] 2 days ago and told likely brown recluse bite; all antibiotics stopped; another outside ED restarted clindamycin; and benadryl. Increasing pain with swelling and more widespread rash. Review of Systems Review of Systems All other systems reviewed and are negative. BP 100/57 Pulse 72 Temp(Src) 97.8 ??F Resp 16 Ht 134.6 cm (53 ) Wt 37.195 kg (82 lb) BMI 20.53 kg/m2 Physical Exam I have reviewed the resident/[employer] physical exam. Unless appended by me below, I agree with the PE as documented. Physical Exam Constitutional: She appears well-developed and well-nourished. She is active. No distress. HENT: Nose: No nasal discharge. Mouth/Throat: Mucous membranes are moist. Eyes: EOM are normal. Cardiovascular: Normal rate, regular rhythm, S1 normal and S2 normal. No murmur heard. Pulmonary/Chest: Effort normal. No respiratory distress. Air movement is not decreased. She has no wheezes. She exhibits no retraction. Abdominal: Soft. She exhibits no distension. There is no tenderness. Musculoskeletal: Rash as noted below; tenderness in right calf Neurological: She is alert. normal Skin: Skin is warm. Capillary refill takes less than 3 seconds. Rash noted. She is not diaphoretic. Diffuse macular/papular rash, on extremities and trunk, with confluence surrounding the eschar in right superior calf region; Eschar is ~1 cm in diameter with no ulceration or drainage at this time. Procedures Procedures ECG Interpretation ECG Interpretation Progress Notes ED Course Medical Decision Making The total time providing critical care (excluding time spent for procedures) was: 0 minutes. I have personally seen and examined this patient. I have fully participated in the care of this patient. I have reviewed all pertinent clinical information available to me during this encounter, including history, physical exam and plan. I have reviewed nursing notes, available labs and radiographic studies. With respect to physicians in training and mid-level providers, I agree with the assessment and plan except if revised in my note. Ass: 1) Suspected brown recluse bite: with systemic reaction. Will check cbc, UA, cmp, LDH, cpk, and give ivf; admit for iv hydration and pain control since unable to walk due to worsening pain. Labs Reviewed CBC W AUTO DIFFERENTIAL - Abnormal; Notable for the following: HCT 34.3 (*) All other components within normal limits COMPREHENSIVE METABOLIC PANEL - Abnormal; Notable for the following: Bili Total 1.7 (*) All other components within normal limits URINALYSIS ROUTINE AUTO - Abnormal; Notable for the following: Blood UA 2+ (*) All other components within normal limits URINALYSIS MICROSCOPIC ONLY - Abnormal; Notable for the following: RBC UA 5-10 (*) All other components within normal limits CBC W MANUAL DIFFERENTIAL - Abnormal; Notable for the following: RBC 3.86 (*) Hgb 10.9 (*) HCT 31.9 (*) MPV 9.6 (*) All other components within normal limits URINALYSIS ROUTINE AUTO - Abnormal; Notable for the following: Blood UA 1+ (*) All other components within normal limits DIFFERENTIAL MANUAL - Abnormal; Notable for the following: [place] Manual 17 (*) All other components within normal limits CK BLOOD - Normal URINALYSIS MICROSCOPIC ONLY - Normal CBC W AUTO DIFFERENTIAL With 2 plus blood and elevated bili, likely hemolysis due to brown recluse bite. Will admit for iv hydration and pain control, monitoring of urine output. Resident discussed with Dr. Joyner of Toxicology service. Clinical Impression Final diagnoses: Spider bite * Pravin Tran MD - 12/20/2013 10:06 PM CDT EMERGENCY DEPARTMENT 12/20/2013 Dear Doctor, We had the pleasure of caring for your patient, Himanshu Damon in our emergency department on 12/20/2013. A note from the provider(s) who cared for your patient is attached. Should you wish to access any laboratory results, please call . Should you wish to access any radiology results, please call , option 3. In addition, you can access patient information 24 hours a day, from any computer, through [employer], the online version of our electronic medical record. If you would like to use this service, please call Elsie Jauregui, Connectivity Coordinator, at . We appreciate the opportunity to care for your patients. If you would like additional information, please call the emergency department directly at . Sincerely, Pravin Tran MD Division of Emergency Medicine [facility] [place], [place] [facility] [place] EMERGENCY DEPARTMENT Provider contact with the patient: 12/20/2013 22:06 Himanshu Damon [id number] [facility] EMERGENCY DEPARTMENT History Chief Complaint Patient presents with ??? Rash To ER for spider bite to right calf. Has been 6 different places. Placed on antibiotics then told not to take them. Strept negative yesterday.Red rash to body, arms and legs. Both checks red. HPI Comments: 8 yo girl with rash over her body that has been getting worse since onset 6 days ago. Mom reports that on 12/15 she noticed a bruise (tip of a pencil size) on her right leg which has progressed- increased in size and has a necrosis of the central area. There is Red area around it and the leg is getting swollen. The rash on her body started the next day. The rash was on her leg - erythematous raised and non itchy. The rash would appear and then disappear and again appear on other site of her body. She was taking benadryl and clindamycin off and on. She was diagnosed with brown recluse spinder bite. Her right leg has been swollen and painful and tender and she cannot bear weight on her right leg. Her rash is now more widespread- all over her body, face, arms legs, perineal area and face. It is not itchy and is not disappearing now. (persistent) No past medical history on file. No past surgical history on file. History Social History ??? Marital Status: Single [...] ??? Not on file Social History Narrative Medications Current Outpatient Prescriptions Medication Sig Dispense Refill ??? diphenhydrAMINE (BENADRYL) 25 MG tablet Take by mouth every 4 hours as needed for Itching. ??? ibuprofen (MOTRIN) 200 MG tablet Take 200 mg by mouth every 6 hours as needed for Pain. Review of Systems Review of Systems Constitutional: Positive for appetite change (decreased today). Negative for fever, activity changeand fatigue. HENT: Negative for congestion, drooling, ear pain, mouth sores, nosebleeds, postnasal drip, sneezing, sore throat and voice change. Eyes: Negative for pain, discharge and itching. Respiratory: Negative for cough, chest tightness, shortness of breath and wheezing. Cardiovascular: Positive for leg swelling (right). Negative for chest pain and palpitations. Gastrointestinal: Positive for abdominal pain. Negative for nausea, vomiting, diarrhea, constipation and abdominal distention. Endocrine: Negative for cold intolerance and polyuria. Genitourinary: Negative for dysuria, urgency, hematuria and decreased urine volume. Musculoskeletal: Positive for myalgias. Negative for back pain, joint swelling, arthralgias, neck pain and neck stiffness. Skin: Positive for rash and wound. Negative for color change and pallor. Allergic/Immunologic: Negative for environmental allergies and food allergies. Neurological: Positive for headaches. Negative for seizures, facial asymmetry, weakness and light-headedness. Hematological: Negative for adenopathy. Psychiatric/Behavioral: Negative for behavioral problems, confusion and agitation. BP 116/68 Pulse 80 Temp(Src) 97.8 ??F Resp 20 Ht 134.6 cm (53 ) Wt 37.195 kg (82 lb) BMI 20.53 kg/m2 Physical Exam Physical Exam Constitutional: She appears well-developed and well-nourished. HENT: Nose: Nose normal. No nasal discharge. Mouth/Throat: Mucous membranes are moist. No tonsillar exudate. Oropharynx is clear. Pharynx is normal. Eyes: Conjunctivae and EOM are normal. Pupils are equal, round, and reactive to light. Neck: Normal range of motion. Neck supple. Cardiovascular: Regular rhythm, S1 normal and S2 normal. Pulmonary/Chest: Effort normal and breath sounds normal. There is normal air entry. No respiratory distress. She has no wheezes. She has no rales. She exhibits no retraction. Abdominal: Soft. Bowel sounds are normal. She exhibits no distension. There is no hepatosplenomegaly. There is no tenderness. Musculoskeletal: Normal range of motion. Lymphadenopathy: She has no cervical adenopathy. Neurological: She is alert. No cranial nerve deficit. Skin: Skin is warm and moist. Capillary refill takes less than 3 seconds. No petechiae and no purpura noted. No cyanosis. No jaundice or pallor. 1 cm necrotic center on right leg behind her knee, lateral aspect with surrounding erythema that isspreading on to her whole leg posterior aspect. The calf is tender and edematous. There is erythematous, raised(erythroderma like) rash all over her body, trunk, arms and legs, face. The rash has a grainy surface. It is not tender and not itchy Vitals reviewed. Procedures Procedures ECG Interpretation ECG Interpretation Lab/SPO2 Interpretation Progress Notes Brown REcluse spider bite with cellulitis Rash- allergic secondary to drug/virus ED Course CBC. 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 [place] [id number] Hilario Traore MD [address] [place] [phone] documented as of this encounter Procedures Procedure Name Priority Date/Time Associated Diagnosis Comments CBC W AUTO DIFFERENTIAL Routine 12/22/2013 6:46 AM CDT CBC W AUTO DIFFERENTIAL Routine 12/21/2013 7:25 PM CDT URINALYSIS REFLEX TO MICROSCOPIC NO CULTURE Routine 12/21/2013 11:54 AM CDT URINE MICROSCOPIC ONLY Routine 4 11:54 AM CDT CBC W MANUAL DIFFERENTIAL Routine 12/21/2013 8:08 AM CDT DIFFERENTIAL MANUAL Routine 12/21/2013 8 :08 AM CDT CBC W AUTO DIFFERENTIAL STAT 12/21/2013 12:16 AM CDT COMPREHENSIVE METABOLIC PANEL STAT 12/21/2013 12:16 AM CDT CK BLOOD STAT 12/21/2013 12:16 AM CDT URINALYSIS REFLEX TO MICROSCOPIC NO CULTURE STAT 12/21/2013 12:02 AM CDT URINE MICROSCOPIC ONLY STAT 4 12:02 AM CDT documented in this encounter Results * (ABNORMAL) CBC W AUTO DIFFERENTIAL (12/22/2013 6:46 AM CDT) WBC 5.0 4.5 - 14.5 x10^9/L 12/22/2013 7:02 AM [facility] RBC 3.87(L) 4.00 - 5.20 x10^12/L 12/22/2013 7:02 AM [facility] Hemoglobin 10.9(L) 11.5 - 15.5 gm/dL 12/22/2013 7:02 AM [facility] Hematocrit 32.1(L) 35.0 - 45.0 % 12/22/2013 7:02 AM [facility] MCV 82.9 77.0 - 95.0 fl 12/22/2013 7:02 AM [facility] MCH 28.2 25.0 - 33.0 pg 12/22/2013 7:02 AM [facility] MCHC 34.0 31.0 - 37.0 gm/dL 12/22/2013 7:02 AM [facility] Platelet Count 162 100 - 400 x10^9/L 12/22/2013 7:02 AM [facility] RDW-CV 12.6 11.5 - 14.0 % 12/22/2013 7:02 AM [facility] MPV 9.4 6.0 - 9.5 fl 12/22/2013 7:02 AM [facility] Neutrophils % 43.3 24.0 - 66.0 % 12/22/2013 7:02 AM [facility] Lymphocytes % 44.7 22.0 - 61.0 % 12/22/2013 7:02 AM [facility] Monocytes % 7.8 3.0 - 15.0 % 12/22/2013 7:02 AM [facility] Eosinophils % 2.4 0.0 - 10.0 % 12/22/2013 7:02 AM [facility] Basophils % 1.0 % 12/22/2013 7:02 AM [facility] Immature Granulocytes 0.8 % 12/22/2013 7:02 AM CDT [facility] Neutrophil Absolute 2.17 x10^9/L 12/22/2013 7:02 AM CDT [facility] Lymphocytes Absolute 2.24 x10^9/L 12/22/2013 7:02 AM CDT [facility] Monocytes Absolute 0.39 x10^9/L 12/22/2013 7:02 AM CDT [facility] Eosinophils Absolute 0.12 x10^9/L 12/22/2013 7:02 AM CDT [facility] Basophils Absolute 0.05 x10^9/L 12/22/2013 7:02 AM CDT [facility] Immature Granulocytes Absolute 0.04 x10^9/L 12/22/2013 7:02 AM T [facility] Blood BLOOD SPECIMEN / Unknown Lab Venipuncture / Unknown 12/22/2013 6:46 AM CDT 12/22/2013 6:57 AM CDT Brianna Gonzales DO LAB - HEMATOLOGY ORD ERABLES Performing Organization Address City/State/[facility] Co de Phone Number [facility] [place] [address] * (ABNORMAL) CBC W AUTO DIFFERENTIAL (12/21/2013 7:25 PM CDT) WBC 4.9 4.5 - 14.5 x10^9/L 12/21/2013 8:19 PM CDT [facility] RBC 3.83(L) 4.00 - 5.20 x10^12/L 12/21/2013 8:19 PM CDT [facility] Hemoglobin 10.8(L) 11.5 - 15.5 gm/dL 12/21/2013 8:19 PM CDT [facility] Hematocrit 31.6(L) 35.0 - 45.0 % 12/21/2013 8:19 PM T [facility] MCV 82.5 77.0 - 95.0 fl 12/21/2013 8:19 PM CDT [facility] MCH 28.2 25.0 - 33.0 pg 12/21/2013 8:19 PM CDT [facility] MCHC 34.2 31.0 - 37.0 gm/dL 12/21/2013 8:19 PM T [facility] Platelet Count 169 100 - 400 x10^9/L 12/21/2013 8:19 PM T [facility] RDW-CV 12.7 11.5 - 14.0 % 12/21/2013 8:19 PM [facility] MPV 9.5 6.0 - 9.5 fl 12/21/2013 8:19 PM T [facility] Neutrophils % 42.3 24.0 - 66.0 % 12/21/2013 8:19 PM T [facility] Lymphocytes % 43.5 22.0 - 61.0 % 12/21/2013 8:19 PM T [facility] Monocytes % 9.9 3.0 - 15.0 % 12/21/2013 8:19 PM T [facility] Eosinophils % 3.3 0.0 - 10.0 % 12/21/2013 8:19 PM T [facility] Basophils % 0.6 % 12/21/2013 8:19 PM T [facility] Immature Granulocytes 0.4 % 12/21/2013 8:19 PM T [facility] Neutrophil Absolute 2.05 x10^9/L 12/21/2013 8:19 PM T [facility] Lymphocytes Absolute 2.11 x10^9/L 12/21/2013 8:19 PM T [facility] Monocytes Absolute 0.48 x10^9/L 12/21/2013 8:19 PM T [facility] Eosinophils Absolute 0.16 x10^9/L 12/21/2013 8:19 PM T [facility] Basophils Absolute 0.03 x10^9/L 12/21/2013 8:19 PM T [facility] Immature Granulocytes Absolute 0.02 x10^9/L 12/21/2013 8:19 PM T [facility] Blood BLOOD SPECIMEN / Unknown Lab Venipuncture / Unknown 12/21/2013 7:25 PM CDT 12/21/2013 7:28 PM CDT Cynthia Mahajan MD LAB - NA TOLOGY ORDERABLES Performing Organization Address City/State/[facility] Co de Phone Number [facility] [address] [place] [address] * URINALYSIS MICROSCOPIC ONLY (12/21/2013 11:54 AM CDT) RBC UA 0-2 0-2, 2-5 # /hpf 12/21/2013 12:47 PM CDT [facility] WBC UA 0-2 0-2, 2-5 # /hpf 12/21/2013 12:47 PM CDT [facility] Bacteria UA None Seen None Seen, Trace 12/21/2013 12:47 PM CDT [facility] Epithelial Cell UA 0-2 0-2, 2-5 12/21/2013 12:47 PM CDT [facility] Urine URINE SPECIMEN OBTAINED BY CLEAN CATCH PROCEDURE / Unknown 12/21/2013 11:54 AM CDT 12/21/2013 12:12 PM CDT Jackie Carrasco MD LAB - URINALYSIS ORD ERABLES [facility] [address] [place] [address] * (ABNORMAL) URINALYSIS ROUTINE AUTO (12/21/2013 11:54 AM CDT) Color UA Yellow Straw, Yellow, Dark Yellow 12/21/2013 12:40 PM CDT [facility] Clarity UA Clear 12/21/2013 12:40 PM CDT [facility] Specific [place] UA 1.010 1.005 - 1.030 12/21/2013 12:40 PM T [facility] pH UA 7.0 5.0 - 8.0 pH 12/21/2013 12:40 PM CDT [facility] Protein UA Negative Negative 12/21/2013 12:40 PM CDT [facility] Blood UA 1+(A) Negative 12/21/2013 12:40 PM CDT [facility] Leukocyte UA Negative Negative 12/21/2013 12:40 PM CDT [facility] Nitrite UA Negative Negative 12/21/2013 12:40 PM CDT [facility] Glucose UA Negative Negative 12/21/2013 12:40 PM CDT [facility] Ketone UA Negative Negative 12/21/2013 12:40 PM CDT [facility] Bilirubin UA Negative Negative 12/21/2013 12:40 PM CDT [facility] Urobilinogen UA 0.2 0.1 - 1.0 EU/dL 12/21/2013 12:40 PM T [facility] Urine URINE SPECIMEN OBTAINED BY CLEAN CATCH PROCEDURE / Unknown 12/21/2013 11:54 AM CDT 12/21/2013 12:12 PM CDT Jackie Carrasco MD LAB - URINALYSIS ORD ERABLES Performing Organization Address [facility]/[facility] Co de Phone Number [facility] [address] [place] [address] * (ABNORMAL) DIFFERENTIAL MANUAL (12/21/2013 8:08 AM CDT) WBC Auto 4.9 4.5 - 14.5 x10^9/L 12/21/2013 9:07 AM T [facility] Neutrophil % Manual 44 24 - 66 % 12/21/2013 9:07 AM T [facility] Lymphocytes % Manual 37 22 - 61 % 12/21/2013 9:07 AM T [facility] Monocytes % Manual 17(H) 3 - 15 % 12/21/2013 9:07 AM T [facility] Eosinophils % Manual 2 0 - 10 % 12/21/2013 9:07 AM [facility] Cells Counted 100 # cells 12/21/2013 9:07 AM T [facility] RBC Morphology Normal 12/21/2013 9:07 AM T [facility] WBC Morph Normal 12/21/2013 9:07 AM T [facility] Blood BLOOD SPECIMEN / Unknown Lab Venipuncture / Unknown 12/21/2013 8:08 AM CDT 12/21/2013 8:19 AM CDT Yanni Bob DO LAB - HEMATOLOGY ORDERABLES Performing Organization Address [facility]/[facility] Co de Phone Number [facility] [address] [place] [address] * (ABNORMAL) CBC W MANUAL DIFFERENTIAL (12/21/2013 8:08 AM CDT) WBC 4.9 4.5 - 14.5 x10^9/L 12/21/2013 8:27 AM T [facility] RBC 3.86(L) 4.00 - 5.20 x10^12/L 12/21/2013 8:27 AM T [facility] Hemoglobin 10.9(L) 11.5 - 15.5 gm/dL 12/21/2013 8:27 AM T [facility] Hematocrit 31.9(L) 35.0 - 45.0 % 12/21/2013 8:27 AM T [facility] MCV 82.6 77.0 - 95.0 fl 12/21/2013 8:27 AM T [facility] MCH 28.2 25.0 - 33.0 pg 12/21/2013 8:27 AM T [facility] MCHC 34.2 31.0 - 37.0 gm/dL 12/21/2013 8:27 AM T [facility] RDW-CV 12.9 11.5 - 14.0 % 12/21/2013 8:27 AM [facility] MPV 9.6(H) 6.0 - 9.5 fl 12/21/2013 8:27 AM T [facility] Platelet Count 180 100 - 400 x10^9/L 12/21/2013 8:27 AM T [facility] Blood BLOOD SPECIMEN / Unknown Lab Venipuncture / Unknown 12/21/2013 8:08 AM CDT 12/21/2013 8:19 AM CDT Yanni Bob DO LAB - HEMATOLOGY ORDERABLES Performing Organization Address City/[facility]/ZIP Co de Phone Number [facility] [address] [place] [phone] * CK BLOOD (12/21/2013 12:16 AM CDT) CK 49 29 - 168 U/L 12/21/2013 12:54 AM T [facility] Blood BLOOD SPECIMEN / Unknown 12/21/2013 12:16 AM CDT 12/21/2013 12:37 AM CDT Pravin Tran MD LAB - CHEMISTRY ORDE RABLILIA Performing Organization Address City/[facility]/ZIP Co de Phone Number [facility] [address] [place] [phone] * (ABNORMAL) COMPREHENSIVE METABOLIC PANEL (12/21/2013 12:16 AM CDT) [facility] Glucose 93 70 - 105 mg/dL 12/21/2013 12:54 AM [facility] Sodium 139 136 - 145 mmol/L 12/21/2013 12:54 AM [facility] Potassium 4.0 3.5 - 5.1 mmol/L 12/21/2013 12:54 AM [facility] Chloride 107 98 - 107 mmol/L 12/21/2013 12:54 AM [facility] CO2 20 20 - 28 mmol/L 12/21/2013 12:54 AM [facility] Calcium 9.68 9.12 - 10.48 mg/dL 12/21/2013 12:54 AM [facility] Anion Gap 12 5 - 20 mmol/L 12/21/2013 12:54 AM [facility] BUN 12.4 6.7 - 19.6 mg/dL 12/21/2013 12:54 AM [facility] Creatinine 0.59 0.53 - 0.80 mg/dL 12/21/2013 12:54 AM [facility] eGFR by MDRD mL/min/1.7 3m2 12/21/2013 12:54 AM [facility] Comment:eGFR calculations ar e not performed for children under 18 years old. eGFR by MDRD mL/min/1.7 3m2 12/21/2013 12:54 AM [facility] Comment:eGFR calculations ar e not performed for children under 18 years old. Alkaline Phosphatase 269 100 - 320 U/L 12/21/2013 12:54 AM [facility] ALT 17 8 - 65 U/L 12/21/2013 12:54 AM [facility] AST 23 3 - 35 U/L 12/21/2013 12:54 AM [facility] Protein Total 6.5 6.2 - 9.1 gm/dL 12/21/2013 12:54 AM [facility] Albumin 3.9 3.6 - 4.9 gm/dL 12/21/2013 12:54 AM [facility] Bilirubin Total 1.7(H) 0.3 - 1.2 mg/dL 12/21/2013 12:54 AM [facility] Blood BLOOD SPECIMEN / Unknown 12/21/2013 12:16 AM CDT 12/21/2013 12:37 AM CDT Pravin Tran MD LAB - CHEMISTRY [facility] Organization Address City/State/ZIP Co de Phone Number [facility] [address] [place] [address] * (ABNORMAL) CBC W AUTO DIFFERENTIAL (12/21/2013 12:16 AM CDT) WBC 5.4 4.5 - 14.5 x10^9/L 12/21/2013 12:37 AM CDT [facility] RBC 4.18 4.00 - 5.20 x10^12/L 12/21/2013 12:37 AM CDT [facility] Hemoglobin 11.7 11.5 - 15.5 gm/dL 12/21/2013 12:37 AM CDT [facility] Hematocrit 34.3(L) 35.0 - 45.0 % 12/21/2013 12:37 AM CDT [facility] MCV 82.1 77.0 - 95.0 fl 12/21/2013 12:37 AM CDT [facility] MCH 28.0 25.0 - 33.0 pg 12/21/2013 12:37 AM CDT [facility] MCHC 34.1 31.0 - 37.0 gm/dL 12/21/2013 12:37 AM CDT [facility] Platelet Count 200 100 - 400 x10^9/L 12/21/2013 12:37 AM CDT [facility] RDW-CV 12.9 11.5 - 14.0 % 12/21/2013 12:37 AM CDT [facility] MPV 9.3 6.0 - 9.5 fl 12/21/2013 12:37 AM CDT [facility] Neutrophils % 37.9 24.0 - 66.0 % 12/21/2013 12:37 AM CDT [facility] Lymphocytes % 50.4 22.0 - 61.0 % 12/21/2013 12:37 AM CDT [facility] Monocytes % 7.6 3.0 - 15.0 % 12/21/2013 12:37 AM CDT [facility] Eosinophils % 3.7 0.0 - 10.0 % 12/21/2013 12:37 AM CDT [facility] Basophils % 0.4 % 12/21/2013 12:37 AM CDT [facility] Immature Granulocytes 0.0 % 12/21/2013 12:37 AM T [facility] Neutrophil Absolute 2.05 x10^9/L 12/21/2013 12:37 AM T [facility] Lymphocytes Absolute 2.72 x10^9/L 12/21/2013 12:37 AM T [facility] Monocytes Absolute 0.41 x10^9/L 12/21/2013 12:37 AM T [facility] Eosinophils Absolute 0.20 x10^9/L 12/21/2013 12:37 AM T [facility] Basophils Absolute 0.02 x10^9/L 12/21/2013 12:37 AM T [facility] Immature Granulocytes Absolute 0.00 x10^9/L 12/21/2013 12:37 AM T [facility] Blood BLOOD SPECIMEN / Unknown 12/21/2013 12:16 AM CDT 12/21/2013 12:29 AM CDT Pravin Tran MD LAB - HEMATOLOGY ORD ERABLES Performing Organization Address City/State/[facility] Co de Phone Number [facility] [place] [address] * (ABNORMAL) URINALYSIS MICROSCOPIC ONLY (12/21/2013 12:02 AM CDT) RBC UA 5-10(A) 0-2, 2-5 # /hpf 12/21/2013 12:17 AM T [facility] WBC UA 2-5 0-2, 2-5 # /hpf 12/21/2013 12:17 AM T [facility] Bacteria UA Trace None Seen, Trace 12/21/2013 12:17 AM [facility] Epithelial Cell UA 0-2 0-2, 2-5 12/21/2013 12:17 AM T [facility] Mucus UA 1+ 12/21/2013 12:17 AM T [facility] Urine URINE SPECIMEN OBTAINED BY CLEAN CATCH PROCEDURE / Unknown 12/21/2013 12:02 AM CDT 12/21/2013 12:05 AM CDT Pravin Tran MD LAB - URINALYSIS ORD ERABLES Performing Organization Address [facility]/ZIP Co de Phone Number [facility] [address] [place] [address] * (ABNORMAL) URINALYSIS ROUTINE AUTO (12/21/2013 12:02 AM CDT) Color UA Yellow Straw, Yellow, Dark Yellow 12/21/2013 12:09 AM T [facility] Clarity UA Clear 12/21/2013 12:09 AM T [facility] Specific [place] UA >=1.030 1.005 - 1.030 12/21/2013 12:09 AM T [facility] pH UA 6.0 5.0 - 8.0 pH 12/21/2013 12:09 AM T [facility] Protein UA Negative Negative 12/21/2013 12:09 AM T [facility] Blood UA 2+(A) Negative 12/21/2013 12:09 AM T [facility] Leukocyte UA Negative Negative 12/21/2013 12:09 AM T [facility] Nitrite UA Negative Negative 12/21/2013 12:09 AM T [facility] Glucose UA Negative Negative 12/21/2013 12:09 AM T [facility] Ketone UA Negative Negative 12/21/2013 12:09 AM T [facility] Bilirubin UA Negative Negative 12/21/2013 12:09 AM T [facility] Urobilinogen UA 0.2 0.1 - 1.0 EU/dL 12/21/2013 12:09 AM [facility] Urine URINE SPECIMEN OBTAINED BY CLEAN CATCH PROCEDURE / Unknown 12/21/2013 12:02 AM CDT 12/21/2013 12:05 AM T Pravin Tran MD LAB - URINALYSIS ORD ERABLES Performing Organization Address [facility]/ZIP Co de Phone Number [facility] [address] [place] [address] documented in this encounter Visit Diagnoses Diagnosis Spider bite Toxic effect of venom Acute hemolysis 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 Plan: Clindamycin Motrin PRN pain Regular diet, encourage fluid intake * Assessment & Plan Note - Vanessa Banks MD - 12/21/2013 10:13 AM CDTAssociated Problem(s): Acute hemolysis secondary to brown recluse bite Assessment: 8 yo with lesion on LE [...] Vitals Q8H, monitor I/O's CBC tomorrow AM * Assessment & Plan Note - Chase Cole - 12/21/2013 2:30 AM CDT Associated Problem(s): Acute hemolysis secondary to brown recluse bite Assessment: 8 yo with erythematous, patchy, raised, [...] brown recluse spider bite- repeat CBC today documented in this encounter Administered Medications Inactive Administered Medications - up to 3 most recent administrations Medication Order MAR Action Action Date Dose Rate Site clindamycin (CLEOCIN) pediatric IV 372 mg 372 mg (10 mg/kg ? 37.2 kg), at 62 mL/hr, Intravenous, EVERY 8 HOURS, First dose on 12/21/13 at 0230, Until Discontinued, Diluted in D5W $ Given 12/22/2013 4:38 AM CDT 372 mg 62 mL/hr $ Given 12/21/2013 8:18 PM CDT 372 mg 62 mL/hr $ Given 12/21/2013 12:22 PM CDT 372 mg 62 mL/hr dextrose 5 % and 0.45% NaCl infusion at 110 mL/hr, Intravenous, CONTINUOUS, Starting on 12/21/13 at 0015, Until 12/22/13 at 0947 $ New Bag/Syringe 12/22/2013 5:59 AM CDT 110 mL/hr $ New Bag/Syringe 12/21/2013 9:43 PM CDT 110 mL /hr $ New Bag/Syringe 12/21/2013 1:00 PM CDT 110 mL /hr diphenhydrAMINE (BENADRYL) injection 12.5 mg 12.5 mg (0.336 mg/kg), Intravenous, EVERY 6 HOURS PRN, Itching, Starting on 12/21/13 at 0321, Until 12/22/13 at 0947, Max intravenous rate = 25 mg/min $ Given 12/21/2013 9:05 PM CDT 12.5 mg $ Given 12/21/2013 2:45 PM CDT 12.5 mg diphenhydrAMINE (BENADRYL) tablet 25 mg 25 mg (0.672 mg/kg), Oral, EVERY 8 HOURS, First dose on 12/21/13 at 0215, Until Discontinued $ Given 12/21/2013 2:42 AM CDT 25 mg ibuprofen (MOTRIN) tablet 200 mg 200 mg (5.38 mg/kg), Oral, ONCE, 1 dose, On 12/21/13 at 0145, Maximum allowable amount = 3200 mg / 24 hours. $ Given 12/21/2013 1:26 AM CDT 200 mg ibuprofen (MOTRIN) tablet 600 mg 600 mg (16.1 mg/kg), Oral, EVERY 8 HOURS PRN, Mild Pain, Fever, Starting on 12/21/13 at 0209, Until 12/22/13 at 0947, Maximum allowable amount = 3200 mg / 24 hours. $ Given 12/21/2013 6:25 PM CDT 600 mg $ Given 12/21/2013 10:24 AM CDT 600 mg oxyCODONE (immediate release) (ROXICODONE) tablet 2.5 mg 2.5 mg (0.0672 mg/kg), Oral, EVERY 6 HOURS PRN, Severe Pain, Starting on 12/21/13 at 0810, Until 12/22/13 at 0947 $ Given 12/21/2013 1:08 PM CDT 2.5 mg documented in this encounter Active and Recently Administered Medications Times are shown in CDT. Scheduled Medication Order 12/20/2013 12/21/2013 12/22/2013 clindamycin (CLEOCIN) pediatric IV 372 mg (CANCELED) 372 mg (10 mg/kg ? 37.2 kg), at 62 mL/hr, Intravenous, EVERY 8 HOURS, First dose on 12/21/13 at 0230, Until Discontinued, Diluted in D5W 0435 ($ Given - Provider: Rea Galvan RN)0505 (Rx Stopped - Provider: Rea Galvan RN)1222 ($ Given - Provider: Kim Conley, MEI)1300 (Rx Stopped - Provider: Anton Higgins, MEI)2018 ($ Given - Provider: Dafne Lorenz RN)2048 (Rx Stopped - Provider: Dafne Lorenz RN) 0438 ($ Given - Provider: Dafne Lorenz RN)0508 (Rx Stopped - Provider: Dafne Lorenz RN) diphenhydrAMINE (BENADRYL) tablet 25 mg (CANCELED) 25 mg (0.672 mg/kg), Oral, EVERY 8 HOURS, First dose on 12/21/13 at 0215, Until Discontinued 0242 ($ Given - Provider: Rea Galvan, MEI) ibuprofen (MOTRIN) tablet 200 mg (COMPLETED) 200 mg (5.38 mg/kg), Oral, ONCE, 1 dose, On 12/21/13 at 0145, Maximum allowable amount = 3200 mg / 24 hours. 0126 ($ Given - Provider: Marianna Davis RN) Continuous Medication Order 12/20/2013 12/21/2013 12/22/2013 dextrose 5 % and 0.45% NaCl infusion (CANCELED) at 110 mL/hr, Intravenous, CONTINUOUS, Starting on 12/21/13 at 0015, Until 12/22/13 at 0947 0013 ($ New Bag/Syringe - Provider: Marianna Davis RN)1103 (Rate Change - Provider: Kim Conley RN)1300 ($ New Bag/Syringe - Provider: Anton Higgins RN)2143 ($ New Bag/Syringe - Provider: Dafne Lorenz RN) 0559 ($ New Bag/Syringe - Provider: Dafne Lorenz RN) PRN Medication Order 12/20/2013 12/21/2013 12/22/2013 diphenhydrAMINE (BENADRYL) injection 12.5 mg (CANCELED)(Linked Group 1) 12.5 mg (0.336 mg/kg), Intravenous, EVERY 6 HOURS PRN, Itching, Starting on 12/21/13 at 0321, Until 12/22/13 at 0947, Max intravenous rate = 25 mg/min 1445 ($ Given - Provider: Russel Higgins RN)2105 ($ Given - Provider: Dafne Lorenz RN) ibuprofen (MOTRIN) tablet 600 mg (CANCELED) 600 mg (16.1 mg/kg), Oral, EVERY 8 HOURS PRN, Mild Pain, Fever, Starting on 12/21/13 at 0209, Until 12/22/13 at 0947, Maximum allowable amount = 3200 mg / 24 hours. 1024 ($ Given - Provider: Kim Conley RN)1825 ($ Given - Provider: Kim Conley RN) oxyCODONE (immediate release) (ROXICODONE) tablet 2.5 mg (CANCELED) 2.5 mg (0.0672 mg/kg), Oral, EVERY 6 HOURS PRN, Severe Pain, Starting on 12/21/13 at 0810, Until 12/22/13 at 0947 1308 ($ Given - Provider: Russel Higgins RN) Linked Groups Order Group 1: diphenhydrAMINE (BENADRYL) injection 12.5 mg (CANCELED)Jump to med 12.5 mg (0.336 mg/kg), Intravenous, EVERY 6 HOURS PRN, Itching, Starting on 12/21/13 at 0321, Until 12/22/13 at 0947, Max intravenous rate = 25 mg/min Or diphenhydrAMINE (BENADRYL) tablet 25 mg (CANCELED) 25 mg (0.672 mg/kg), Oral, EVERY 6 HOURS PRN, Itching, Starting on 12/21/13 at 0321, Until 12/22/13 at 0947 documented in this encounter Care Teams Chucking Lathe Operator Relationship Specialty Start Date End Date Nohemy June MD [address] [place] [address] [place] [id number] PCP - General Family Medicine 12/20/13 03/28/19 documented as of this encounter
--- OUTSIDE RECORDS SUMMARY | 2024-04-04 01:21 | XMS_ITS | Encounter Summary ---
Author Organization [facility] Address [address] [place] [address]. [place], [place] [address] [place] [address] Care Team Providers Care Chief Jailer Name Role Phone Eduardo López Primary Care Provider [phone] None, Provider Primary Care Provider Unavaila ble Encounter Details Date Type Department Care Team (Latest Contact Info) Description 08/10/2023 Scan [facility] INFO SRVCS Scanned, Doc [...] documented as of this encounter Care Teams Chief Jailer Relationship Specialty Start Date End Date Eduardo Ló[place] [address] [place] [address] PCP - General Physician Media Marketing Director Medical 07/12/23 08/14/23 None, Provider, PCP - General UNKNOWN PHYSICIAN SPECIALTY 08/15/23 09/10/23 documented as of this encounter
--- OUTSIDE RECORDS SUMMARY | 2024-04-04 01:21 | XMS_ITS | Encounter Summary ---
Author Organization [facility] Address [address] [place] [address]. [place], [place] [address] [place] [address] Care Team Providers Care Industrial Ecologist Name Role Phone Eduardo López Primary Care Provider [phone] Reason for Visit * Reason Onset Date Comments Referral 07/21/2023 Encounter Details Date Type Department Care Team (Late st Contact Info) Description 07/21/2023 Telephone [facility] Family & Internal Medicine [facility] [address] [place] [address] Eduardo Ló[place] [address] [place] [address] Referral Social History Tobacco Use Types Packs/Day Years [...] as of this encounter Progress Notes * Shanique Torrez MA - 07/24/2023 7:12 AM CDT Referral placed for [facility] for diabetic education. * Hilda To - 07/21/2023 2:58 PM CDT Marcelina from [facility] called and this patient needs a referral from her Ins., for Outpatient Dubieties self management training. She is faxing a form for this referral. documented in this encounter Plan of Treatment Not on file documented as of this encounter Visit Diagnoses Not on filedocumented in this encounter Additional Health Concerns Assessment Noted Time PHQ-9 Depression Total Score: 14 024 11:38 AM CDT documented as of this encounter Care Teams Industrial Ecologist Relationship Specialty Start Date End Date Eduardo Ló[place] [address] [place] [address] PCP - General Physician Ict Support Technicians Medical 07/12/23 08/14/23 documented as of this encounter
--- OUTSIDE RECORDS SUMMARY | 2024-04-04 01:21 | XMS_ITS | Encounter Summary ---
Author Organization [facility] Address [address] [place] [address]. [place], [place] [address] [place] [address] Care Team Providers Care Crusher Assembler Name Role Phone Eduardo López Primary Care Provider [phone] Encounter Details Date Type Department Care Team (Latest Contact Info) Description 01/04/2024 Travel Social History Tobacco Use Types Packs/Day Years Used Date Smoking Tobacco: Former Cigarettes Smokeless Tobacco: Never Alcohol Use Standard [...] documented as of this encounter Care Teams Crusher Assembler Relationship Specialty Start Date End Date Eduardo Ló[place] [address] [place] [address] PCP - General Physician Chief Dietitian Medical 09/11/23 documented as of this encounter
--- OUTSIDE RECORDS SUMMARY | 2024-04-04 01:21 | XMS_ITS | Encounter Summary ---
Author Organization [facility] Address [address] [place] [address]. [place], [place] [address] [place] [address] Care Team Providers Care Buttonholer Name Role Phone None, Provider Primary Care Provider Unavaila ble Encounter Details Date Type Department Care Team (Latest Contact Info) Description 11/27/2020 Travel Social History Tobacco Use Types Packs/Day [...] PM CDT documented as of this encounter Plan of Treatment Not on file documented as of this encounter Visit Diagnoses Not on filedocumented in this encounter Care Teams Buttonholer Relationship Specialty Start Date End Date None, Provider, PCP - General 11/27/20 07/11/23 documented as of this encounter
--- OUTSIDE RECORDS SUMMARY | 2024-04-04 01:21 | XMS_ITS | Encounter Summary ---
Author Organization [facility] Address [address] [place] [address]. [place], [place] [address] [place] [address] Care Team Providers Care Edger Machine Setter Name Role Phone Eduardo López Primary Care Provider [phone] None, Provider Primary Care Provider Unavaila ble Reason for Visit * Reason Onset Date Comments Medication 08/11/2023 Encounter Details Date Type Department Care Team (Late st Contact Info) Description 08/11/2023 Telephone [facility] Family & Internal Medicine [facility] [address] [place] [address] Eduardo López [place] [address] [place] [address] Medication Social History Tobacco Use Types Packs/Day Years [...] Notes * Mary Ellen [place] RN - 08/15/2023 2:09 PM CDT Noted. * Ghada Comer LPN - 08/15/2023 11:28 AM CDT Pt called I read her message states certified coder already ordered Dexcom She has appt today for fall and hitting head on tub thinks nose may be FX * Mary Ellen [place] RN - 08/14/2023 8:33 AM CDT Per [place], pt's certified coder to order the CGM Dexcom. LVM for pt to call office. Please inform her of this when she returns call. * Mary Ellen [place] RN - 08/11/2023 3:55 PM CDT Do you want pt's certified coder to order this? * Josefina Brooks MA - 08/11/2023 3:50 PM CDT Pt calling stating that she has diabetes and she is getting a new pump either next week or the following week and she was told she is going to need a change to her monitor to a dexcom 6. Any questions call Abdulkadirisyn [phone] documented in this encounter Plan of Treatment Not on file documented as of this encounter Visit Diagnoses Not on filedocumented in this encounter Additional Health Concerns Assessment Noted Time PHQ-9 Depression Total Score: 14 024 11:38 AM CDT documented as of this encounter Care Teams Edger Machine Setter Relationship Specialty Start Date End Date Eduardo Ló[place] [address] [place] [address] PCP - General Physician Hairspring Studder Medical 07/12/23 08/14/23 None, Provider, PCP - General UNKNOWN PHYSICIAN SPECIALTY 08/15/23 09/10/23 documented as of this encounter
--- OUTSIDE RECORDS SUMMARY | 2024-04-04 01:21 | XMS_ITS | Encounter Summary ---
Author Organization [facility] Address [address] [place] [address]. [place], [place] [address] [place] [address] Care Team Providers Care Teaching Supervisor Name Role Phone Eduardo López Primary Care Provider [phone] Encounter Details Date Type Department Care Team (Latest Contact Info) Description 07/21/2023 Scan [facility] INFO SRVCS Scanned, Doc [...] documented as of this encounter Care Teams Teaching Supervisor Relationship Specialty Start Date End Date Eduardo López [place] [address] [place] [address] PCP - General Physician Log Processor Operator Medical 07/12/23 08/14/23 documented as of this encounter
--- OUTSIDE RECORDS SUMMARY | 2024-04-04 01:21 | XMS_ITS | Encounter Summary ---
Author Organization [facility] Address [address] [place] [address]. [place], [place] [address] [place] [address] Care Team Providers Care Gate Shear Operator Name Role Phone Eduardo López Primary Care Provider [phone] Encounter Details Date Type Department Care Team (Latest Contact Info) Description 07/25/2023 Scan [facility] INFO SRVCS Scanned, Doc [...] documented as of this encounter Care Teams Gate Shear Operator Relationship Specialty Start Date End Date Eduardo López [place] [address] [place] [address] PCP - General Physician Agency Sales Development Associate Medical 07/12/23 08/14/23 documented as of this encounter
--- OUTSIDE RECORDS SUMMARY | 2024-04-04 01:21 | XMS_ITS | Encounter Summary ---
Author Organization [facility] Address [address] [place] [address]. [place], [place] [address] [place] [address] Care Team Providers Care Internal Security Manager Name Role Phone Eduardo López Primary Care Provider [phone] Encounter Details Date Type Department Care Team (Latest Contact Info) Description 07/24/2023 Scan [facility] INFO SRVCS Scanned, Doc [...] documented as of this encounter Care Teams Internal Security Manager Relationship Specialty Start Date End Date Eduardo Ló[place] [address] [place] [address] PCP - General Physician Child Welfare Director Medical 07/12/23 08/14/23 documented as of this encounter
--- OUTSIDE RECORDS SUMMARY | 2024-04-04 01:21 | XMS_ITS | Encounter Summary ---
Author Organization [facility] Address [address] [place] [address] Care Team Providers Care Senior Web Applications Developer Name Role Phone Nohemy June MD Primary Care Provider [phone] Reason for Visit * Reason Comments Insect bite Encounter Details Date Type Department Care Team (Late st Contact Info) Description 12/23/2013 - 12/23/2013 12:48 PM CDT Emergency ER at [address] [id number] Discharge Disposition: ED Dismiss - Never Arrived Social History Tobacco Use Types Packs/Day Years [...] No 12/22/2013 documented as of this encounter Medications at [...] 12/22/2013 12/30/2013 documented as of this encounter Plan of Treatment Upcoming Encounters Date Type Department Care Team (Late st Contact Info) Description 04/09/2024 8:40 AM INSPECTORS AND REGULATORY OFFICERS Office Visit [facility] - Endocrinology [address] [place] [address], [facility] [place] [address] Hilario Traore MD [address] [place] [address] documented as of this encounter Visit Diagnoses Not on filedocumented in this encounter Care Teams Senior Web Applications Developer Relationship Specialty Start Date End Date Nohemy June MD [address] [place] [id number] PCP - General Family Medicine 12/20/13 03/28/19 documented as of this encounter
--- OUTSIDE RECORDS SUMMARY | 2024-04-04 01:21 | XMS_ITS | Encounter Summary ---
Author Organization [facility] Address [address] [place] [address] Care Team Providers Care Driveway Attendant Name Role Phone Melany Vieira MD Primary Care Provider [phone] Encounter Details Date Type Department Care Team (Latest Contact Info) Description 07/19/2010 1:20 PM CDT - 07/19/2010 11:59 PM CDT Hospital Encounter [facility] - Dermatology [address] [place] [address] Amina Bergman MD [address] [place] [address] [address] [place] [address] Dermatology Discharge Disposition: Home or Self Care Social [...] st Contact Info) Description 04/09/2024 8:40 AM TREATMENT COORDINATOR Office Visit [facility] - Endocrinology [address] [place] [address], [place] [address] Hilario Traore MD [address] [facility] [address] [place] [address] documented as of this encounter Visit Diagnoses Not on filedocumented in this encounter Care Teams Driveway Attendant Relationship Specialty Start Date End Date Melany Vieira MD [address] [place] [address] PCP - General 07/19/10 12/19/13 documented as of this encounter
--- OUTSIDE RECORDS SUMMARY | 2024-04-04 01:21 | XMS_ITS | Encounter Summary ---
Author Organization [facility] Address [address] [place] [address]. [place], [place] [id number] [place] [id number] Care Team Providers Care Hemodialysis Lab Technician Name Role Phone Eduardo López Primary Care Provider [phone] Reason for Referral * Imaging (Emergency) - New Request Specialty Diagnoses / Procedures Referred By Dali t Referred To Contact RADIOLOGY Procedures CT ABD+PEL WO CON Jess Lockhart MD [address] [place] [address] Phone: tel: fax: Referral ID Status Reason Start Date Expiration Date V isits Requested Visits Authorized [id number] New Request 01/04/2024 01/03/2025 1 1 Reason for Visit * Reason Comments Back Pain Hip Pain Encounter Details Date Type Department Care Team (Late st Contact Info) Description 01/04/2024 1:52 PM CDT - 01/04/2024 4:47 PM CDT Emergency [facility] Emergency Room [id number] [place] [address] Jess Lockhart MD [address] [place] [address] Back Pain; Hip Pain Discharge Disposition: Home [...] Mass Index 22.71 01/04/2024 1:55 PM CDT documented in this encounter Discharge Instructions * Discharge Instructions* Jess Lockhart MD - 01/04/2024 4:44 PM CDT Take medication as prescribed. Your CT scan was negative for kidney stones evidence of kidney infection any musculoskeletal injuries or any bowel issues. You may follow-up with your chiropractor for repeat evaluation or you may follow-up with the PA listed above. If you develop any fever any worsening pain any numbness and tingling in your legs difficulty to control your urine or bowel, please return to the ED immediately. * Attachments The following attachments cannot be sent through Care Everywhere. * Low back pain in adults (Georgian) * Managing acute pain at home (Georgian) documented in this encounter Medications at Time of Discharge methocarbamol (ROBAXIN) 750 MG Tab Take 1 tablet (750 mg total) by mouth every 4 (four) hours. 180 tablet naproxen (NAPROSYN) 500 MG tablet Take 1 tablet (500 mg total) by mouth 2 (two) times daily with meals. 60 tablet 4 Continuous Glucose Sensor (FREESTYLE ELZBIETA 3 SENSOR) MiscIndications:T ype 2 diabetes mellitus without complication, with long-term current use of insulin (CMS/HCC HHS/HCC) Apply to the back of the arm every 14 days 6 each 2 4 Glucose Blood test stripIndications: Type 1 diabetes mellitus without complication (CMS/HCC HHS/HCC) 1 strip by Other route as needed. Use as instructed 100 strip 4 Insulin Pen Needle (PEN NEEDLES) 32G X 4 MM MiscIndications:T ype 1 diabetes mellitus without complication (CMS/HCC HHS/HCC) Use to inject insulin once daily in the morning. 100 each 1 4 melatonin 5 MG tablet Take 2 tablets (10 mg total) by mouth nightly. NOVOLOG FLEXPEN RELION 100 UNIT/ML injection (PEN)Indications: Type 1 diabetes mellitus without complication (CMS/HCC HHS/HCC) Inject 10 Units into the skin see administration instructions. 10 units each meal Sliding scale 12 mL 1 4 documented as of this encounter ED Notes * Jess Lockhart MD - 01/04/2024 3:07 PM CDT Images from the original note were not included. ED NOTE Chief Complaint Chief Complaint Patient presents with Back Pain Hip Pain History of Present Illness Back Pain Hip Pain Patient is a 18-year-old white female who presents to the emergency room with a complaint of back pain and bilateral hip pain. Patient states that the back pain was so severe and was radiating towards her left hip that she saw a chiropractor. Patient states that her chiropractor told her that her pelvis and hips were tilted. Patient is concerned that she may have ruptured disc. Patient denies any difficulty urinating or defecating denies any numbness and tingling her extremities. Patient states she has taken a whole host of medicines Tylenol ibuprofen heat ice and massage with no relief. Patient denies any dysuria urgency or frequency. Patient comes to the emergency room by way of private vehicle and appears to be in no apparent distress respiratory otherwise. Medical History ALLERGIES: Review of patient's allergies indicates: Allergen Reactions Kiwi Fruit Swelling Tongue swells with blisters Silas Flavor Swelling Tongue swelling and blisters Flexeril [Cyclobenzaprine] Nausea and Vomiting Pineapple Extract Unknown MEDICATIONS: Prior to Admission medications Medication Sig Start Date End Date Taking? Authorizing Provider methocarbamol (ROBAXIN) 750 MG Tab Take 1 tablet (750 mg total) by mouth every 4 (four) hours. 01/04/24 Yes Jess Lockhart MD naproxen (NAPROSYN) 500 MG tablet Take 1 tablet (500 mg total) by mouth 2 (two) times daily with meals. 01/04/24 Yes Jess Lockhart MD Continuous Glucose Sensor (FREESTYLE ELZBIETA 3 SENSOR) Misc Apply to the back of the arm every 14 days 07/21/23 ZEV Gay Glucose Blood test strip 1 strip by Other route as needed. Use as instructed 07/18/23 ZEV Gay Insulin Pen Needle (PEN NEEDLES) 32G X 4 MM Misc Use to inject insulin once daily in the morning. 07/19/23 ZEV Gay melatonin 5 MG tablet Take 2 tablets (10 mg total) by mouth nightly. Doc [facility] NOVOLOG FLEXPEN RELION 100 UNIT/ML injection (PEN) Inject 10 Units into the skin see administrationinstructions. 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[facility]) Type 1 diabetes ([facility]) PAST SURGICAL HISTORY: Past Surgical History: Procedure Laterality Date TYMPANOSTOMY TUBE PLACEMENT FAMILY HISTORY: Family History Problem Relation Name Age of Onset No Known Problems Mother No Known Problems Father No Known Problems Sister SOCIAL HISTORY: Social History Tobacco Use Smoking status: Former Types: Cigarettes Smokeless tobacco: Never Vaping Use Vaping status: Every Day Substances: Nicotine Devices: Disposable Substance Use Topics 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 Physical Exam Filed Vitals: 01/04/24 1355 01/04/24 1647 BP: 117/69 104/82 Pulse: 87 72 Resp: 16 16 Temp: 98.2 ??F (36.8 ??C) 98 ??F (36.7 ??C) TempSrc: Temporal SpO2: 100% 98% Weight: 60 kg (132 lb 4.4 oz) Height: 1.626 m (5' 4 ) Physical Exam Vitals and nursing note reviewed. Constitutional: General: She is not in acute distress. Appearance: Normal appearance. She is not ill-appearing, toxic-appearing or diaphoretic. HENT: Head: Normocephalic and atraumatic. Nose: Nose normal. Mouth/Throat: Mouth: Mucous membranes are moist. Eyes: Extraocular Movements: Extraocular movements intact. Neck: Vascular: No carotid bruit. Cardiovascular: Rate and Rhythm: Normal rate and regular rhythm. Pulses: Normal pulses. Heart sounds: Normal heart sounds. No murmur heard. No friction rub. No gallop. Pulmonary: Effort: Pulmonary effort is normal. No respiratory distress. Breath sounds: Normal breath sounds. No stridor. No wheezing, rhonchi or rales. Chest: Chest wall: No tenderness. Abdominal: General: Abdomen is flat. Bowel sounds are normal. There is no distension. Palpations: There is no mass. Tenderness: There is no abdominal tenderness. There is no right CVA tenderness, left CVA tenderness, guarding or rebound. Hernia: No hernia is present. Musculoskeletal: General: Tenderness present. No swelling, deformity or signs of injury. Normal range of motion. Cervical back: Normal range of motion and neck supple. No rigidity or tenderness. Back: Right lower leg: No edema. Left lower leg: No edema. Comments: Tenderness at left flank. arrow did note tenderness to back and sacral area. Patient has negative straight leg raises. Lymphadenopathy: Cervical: No cervical adenopathy. Skin: General: Skin is warm and dry. Capillary Refill: Capillary refill takes less than 2 seconds. Coloration: Skin is not jaundiced or pale. Findings: No bruising, erythema, lesion or rash. Neurological: General: No focal deficit present. Mental Status: She is alert. Sensory: No sensory deficit. Motor: No weakness. Coordination: Coordination normal. Gait: Gait normal. Psychiatric: Mood and Affect: Mood normal. Thought Content: Thought content normal. Diagnostic Studies / Procedures ELECTROCARDIOGRAMS: No results found for this visit on 01/04/24. LABORATORY STUDIES: Results for orders placed or performed during the hospital encounter of 01/04/24 Urinalysis, Auto, Complete Result Value Ref Range COLOR (U) YELLOW TRANSPARENCY CLEAR SPECIFIC GRAVITY (U) 1.020 1.000 - 1.030 U PH 7.0 5.0 - 9.0 LEUKOCYTES (U) NEGATIVE NEGATIVE NITRITES NEGATIVE NEGATIVE PROTEIN RANDOM (U) NEGATIVE NEGATIVE GLUCOSE (U) NEGATIVE NEGATIVE KETONES MG/DL (U) NEGATIVE NEGATIVE BILIRUBIN (U) NEGATIVE NEGATIVE BLOOD (U) NEGATIVE NEGATIVE WBC/HPF NONE SEEN 0 - 5 /HPF RBC/HPF NONE SEEN 0 - 5 /HPF EPI/HPF FEW /HPF TEST URINE Result Value Ref Range URINE HCG TEST NEGATIVE NEGATIVE CBC W/DIFF AUTOMATED Result Value Ref Range WBC 10.14 4.4 - 11.0 x10'3/uL RBC 4.65 4.50 - 5.10 x10'6/uL HGB 14.3 12.3 - 15.3 G/DL HCT 42.8 35.9 - 44.6 % MCV 92.0 80.0 - 96.0 FL MCH 30.8 25.3 - 30.9 PG MCHC 33.4 31.0 - 34.1 G/DL RDW 13.4 12.4 - 15.1 % PLT 389 (H) 151 - 353 x10'3/uL MPV 8.8 (L) 9.6 - 12.0 FL RBC MORPHOLOGY NORMAL PLT MORPH. NORMAL WBC MORPHOLOGY NORMAL LYMPHOCYTES % 18.5 15.8 - 45.0 % NEUTROPHILS % 74.8 (H) 42.1 - 71.9 % MONOCYTES % 5.7 5.7 - 12.5 % EOSINOPHILS 0.3 0.0 - 5.6 % BASOPHILS 0.4 0.0 - 1.3 % ABS. NEUTROPHILS 7.58 (H) 1.40 - 6.00 x10'3/uL IMMATURE GRANS % 0.3 0.0 - 0.5 % ABS. LYMPHOCYTES 1.88 0.80 - 4.70 x10'3/uL BASIC METABOLIC PANEL Result Value Ref Range GLUCOSE 132 (H) 70 - 99 MG/DL BUN 11 7 - 18 MG/DL CREATININE S/P/B 0.57 0.55 - 1.02 MG/DL SODIUM S/P/B 139 136 - 145 MMOL/L POTASSIUM S/P/B 4.0 3.5 - 5.1 MMOL/L CHLORIDE S/P/B 102 100 - 108 MMOL/L CO2 26.3 21 - 32 MMOL/L CALCIUM S/P/B 9.7 8.5 - 10.1 MG/DL ANION GAP 10.7 5 - 15 MMOL/L BUN CREATININE RATIO 19.3 6 - 26 GFR ESTIMATE >90 >90 ML/MIN/1.[address] ABD+PEL WO CON Final Result by User, [id number] (01/04 1624) [facility] [address] [place] [address] EXAMINATION: CT ABD+PEL WO CON, 01/04/2024 4:16 [...] is normal in size and contour. Gallbladder is negative. There is no bile duct dilation. No peripancreatic inflammatory change. The pancreas is not well evaluated without intravenous contrast. The spleen is normal in size. No adrenal mass. No perinephric abnormality. No hydronephrosis. No nephrolithiasis. The caliber of the abdominal aorta is normal. No retroperitoneal adenopathy. PELVIS: The appendix is normal. There is no bowel dilation or wall thickening. No free fluid within the abdomen or pelvis. No free intraperitoneal air. Urinary bladder is grossly normal. No pelvic mass or adenopathy. No acute fracture nor destructive process of the visualized osseous structures. IMPRESSION: No definite acute CT findings within the abdomen or pelvis. Referred By: Interpreted By: Óscar Gomez MD, 01/04/2024 4:16 PM ED Course / Medical Decision Making MDM Number of Diagnoses or Management Options Chronic low back pain without sciatica, unspecified back pain laterality Diagnosis management comments: Patient's CBC and CMP are virtually normal with exception of elevated blood sugar of 132. Patient's CT of the abdomen and pelvis revealed no evidence of any stones any musculoskeletal issues or any evidence of any colitis or any inflammation. Patient will be discharged to home on Naprosyn and Robaxin. Patient is told to continue heat and follow-up with her chiropractor. But patient also [facility] be [facility]. Patient diagnosis is back pain with spasms. Amount and/or Complexity of Data Reviewed Independent visualization of images, tracings, or specimens: yes Risk of Complications, Morbidity, and/or Mortality Presenting problems: moderate Diagnostic procedures: moderate Management options: moderate Medications - No data to display Clinical Impression Chronic low back pain without sciatica, unspecified back pain laterality (Primary) Disposition: Discharge Discharge Medication List as of 01/04/2024 4:45 PM START taking these medications Details methocarbamol (ROBAXIN) 750 MG Tab Take 1 tablet (750 mg total) by mouth every 4 (four) hours., Starting [facility] 01/04/2024, Eprescribe Class: Eprescribe Pharmacy: [facility] [address] [place] [address] [address] (Ph #: [phone]) naproxen (NAPROSYN) 500 MG tablet Take 1 tablet (500 mg total) by mouth 2 (two) times daily with meals., Starting [facility] 01/04/2024, Eprescribe Class: Eprescribe Pharmacy: [facility] [address] [place] [address] [address] (Ph #: [phone]) Follow-up: ZEV Gay [address] [facility] [id number] In 1 week Jess Lockhart MD 01/05/2024 08:25 Jess Lockhart MD 01/05/24824 Jess Lockhart MD 01/05/24824 * Marianna Kenney RN - 01/04/2024 1:55 PM CDT Patient ambulatory to ED via self c/o back pain and bilateral hip pain. Has been going on for a while but worsened the past few days. Started in the mid lower back, now radiates up left side of back and into both hips. Describes as aching and tightness. Rates 7/10 at this time. Has treated with tylenol, ibuprofen, heat, ice, and massage with no relief. Saw chiropractor one time for it and was told her hips are tilted. documented in this encounter Plan of Treatment [...] W/DIFF AUTOMATED STAT 01/04/2024 3:13 PM CDT documented in this encounter Results * CT ABD+PEL WO CON (01/04/2024 4:07 PM CDT) Anatomical Region Laterality Modality Abdomen Computed Tomogra phy 01/04/2024 4:16 PM CDT Impressions 01/04/2024 4:19 PM CDT IMPRESSION: No definite acute CT findings within the abdomen or pelvis. Referred By: ?? Interpreted By: Óscar Gomez MD, 01/04/2024 4:16 PM Narrative 01/04/2024 4:19 PM CDT [facility] [id number] [place] [address] EXAMINATION: CT ABD+PEL WO CON, 01/04/2024 4:16 [...] Procedure Note Óscar Gomez MD - 01/04/2024 [id number] [facility] [place] [address] EXAMINATION: CT ABD+PEL WO CON, 01/04/2024 4:16 [...] TEST NEGATIVE NEGATIVE 01/04/2024 3:31 PM CDT [facility] Comment: VERY DILUTE URINE SPECIMENS MAY NOT CONTAIN NATURAL SCIENCE MANAGER LEVELS OF HCG. IF IS STILL SUSPECTED, A SERUM HCG TEST IS RECOMMENDED. URINE SPECIMEN FROM URETHRA / Unknown 01/04/2024 3:16 PM CDT us Jess Lockhart MD URINE ORDERABLES Final Result [facility] [address] [place] [address], [place] [phone] * Urinalysis, Auto, Complete (01/04/2024 3:16 PM CDT) COLOR (U) YELLOW 01/04/2024 3:43 PM CDT [facility] TRANSPARENCY CLEAR 01/04/2024 3:43 PM CDT [facility] SPECIFIC GRAVITY (U) 1.020 1.000 - 1.030 01/04/2024 3:43 PM CDT [facility] U PH 7.0 5.0 - 9.0 01/04/2024 3:43 PM CDT [facility] LEUKOCYTES (U) NEGATIVE NEGATIVE 01/04/2024 3:43 PM CDT [facility] NITRITES NEGATIVE NEGATIVE 01/04/2024 3:43 PM CDT [facility] PROTEIN RANDOM (U) NEGATIVE NEGATIVE 01/04/2024 3:43 PM CDT [facility] GLUCOSE (U) NEGATIVE NEGATIVE 01/04/2024 3:43 PM CDT [facility] KETONES MG/DL (U) NEGATIVE NEGATIVE 01/04/2024 3:43 PM CDT [facility] BILIRUBIN (U) NEGATIVE NEGATIVE 01/04/2024 3:43 PM CDT [facility] BLOOD (U) NEGATIVE NEGATIVE 01/04/2024 3:43 PM CDT [facility] WBC/HPF NONE SEEN 0 - 5 /HPF 01/04/2024 3:43 PM CDT [facility] RBC/HPF NONE SEEN 0 - 5 /HPF 01/04/2024 3:43 PM CDT [facility] EPI/HPF FEW /HPF 01/04/2024 3:43 PM CDT [facility] URINE SPECIMEN OBTAINED BY CLEAN CATCH PROCEDURE / Unknown 01/04/2024 3:16 PM CDT us Jess Lockhart MD URINE ORDERABLES Final Result [facility] [address] [place] [address], [place] [phone] * (ABNORMAL) BASIC METABOLIC PANEL (01/04/2024 3:13 PM CDT) [facility] GLUCOSE 132(H) 70 - 99 MG/DL 01/04/2024 3:45 PM CDT [facility] BUN 11 7 - 18 MG/DL 01/04/2024 3:45 PM T [facility] CREATININE S/P/B 0.57 0.55 - 1.02 MG/DL 01/04/2024 3:45 PM T [facility] SODIUM S/P/B 139 136 - 145 MMOL/L 01/04/2024 3:45 PM T [facility] POTASSIUM S/P/B 4.0 3.5 - 5.1 MMOL/L 01/04/2024 3:45 PM T [facility] CHLORIDE S/P/B 102 100 - 108 MMOL/L 01/04/2024 3:45 PM T [facility] CO2 26.3 21 - 32 MMOL/L 01/04/2024 3:45 PM T [facility] CALCIUM S/P/B 9.7 8.5 - 10.1 MG/DL 01/04/2024 3:45 PM [facility] ANION GAP 10.7 5 - 15 MMOL/L 01/04/2024 3:45 PM [facility] BUN CREATININE RATIO 19.3 6 - 26 01/04/2024 3:45 PM [facility] GFR ESTIMATE >90 >90 ML/MIN/1.7 3 M2 01/04/2024 3:45 PM [facility] Comment: NOTE: eGFR is not calculated for patients <18 years of age. This is an estimated GFR calculation using the new CKD EPI creatinine equation without race and so does not require a correction factor for race. This estimated GFR should not be used for calculating drug doses. 01/04/2024 3:13 PM CDT us Jess Lockhart MD LABORATORY Final Result [facility] [address] [place] [address], * (ABNORMAL) CBC W/DIFF AUTOMATED (01/04/2024 3:13 PM CDT) WBC 10.14 4.4 - 11.0 x10'3/uL 01/04/2024 3:19 PM CDT [facility] RBC 4.65 4.50 - 5.10 x10'6/uL 01/04/2024 3:19 PM CDT [facility] HGB 14.3 12.3 - 15.3 G/DL 01/04/2024 3:19 PM CDT [facility] HCT 42.8 35.9 - 44.6 % 01/04/2024 3:19 PM CDT [facility] MCV 92.0 80.0 - 96.0 FL 01/04/2024 3:19 PM CDT [facility] MCH 30.8 25.3 - 30.9 PG 01/04/2024 3:19 PM CDT [facility] MCHC 33.4 31.0 - 34.1 G/DL 01/04/2024 3:19 PM CDT [facility] RDW 13.4 12.4 - 15.1 % 01/04/2024 3:19 PM CDT [facility] PLT 389(H) 151 - 353 x10'3/uL 01/04/2024 3:19 PM CDT [facility] MPV 8.8(L) 9.6 - 12.0 FL 01/04/2024 3:19 PM CDT [facility] RBC MORPHOLOGY NORMAL 01/04/2024 3:19 PM CDT [facility] PLT MORPH. NORMAL 01/04/2024 3:19 PM CDT [facility] WBC MORPHOLOGY NORMAL 01/04/2024 3:19 PM CDT [facility] LYMPHOCYTES % 18.5 15.8 - 45.0 % 01/04/2024 3:19 PM CDT [facility] NEUTROPHILS % 74.8(H) 42.1 - 71.9 % 01/04/2024 3:19 PM CDT [facility] MONOCYTES % 5.7 5.7 - 12.5 % 01/04/2024 3:19 PM CDT [facility] EOSINOPHILS 0.3 0.0 - 5.6 % 01/04/2024 3:19 PM CDT [facility] BASOPHILS 0.4 0.0 - 1.3 % 01/04/2024 3:19 PM CDT [facility] ABS. NEUTROPHILS 7.58(H) 1.40 - 6.00 x10'3/uL 01/04/2024 3:19 PM CDT [facility] IMMATURE GRANS % 0.3 0.0 - 0.5 % 01/04/2024 3:19 PM CDT [facility] ABS. LYMPHOCYTES 1.88 0.80 - 4.70 x10'3/uL 01/04/2024 3:19 PM T [facility] 01/04/2024 3:13 PM CDT Jess Lockhart MD LABORATORY Final Result [facility] [address] [place] [address], documented in this encounter Visit Diagnoses Diagnosis Chronic low back pain without sciatica, unspecified back pain laterality- Primary documented in this encounter Additional Health Concerns Assessment Noted Time PHQ-9 Depression Total Score: 14 024 11:38 AM CDT documented as of this encounter Care Teams Hemodialysis Lab Technician Relationship Specialty Start Date End Date Eduardo [place] [address] [place] [address] PCP - 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
--- OUTSIDE RECORDS SUMMARY | 2024-04-04 01:21 | XMS_ITS | Encounter Summary ---
Author Organization [facility] Address [address] [place] [address]. [place], [place] [address] [place] [address] Care Team Providers Care Basket Turner Name Role Phone Eduardo López Primary Care Provider [phone] Reason for Visit * Reason Comments New Patient Establish care Diabetes Encounter Details Date Type Department Care Team (Late st Contact Info) Description 07/18/2023 11:20 AM CDT Office Visit [facility] Family & Internal Medicine [facility] [id number] [place] [phone] Eduardo López PA [address] [place] [address] New Patient (Establish care/); Diabetes Social History Tobacco Use Types Packs/Day Years Used Date Smoking Tobacco: Every Day Cigarettes Smokeless Tobacco: Never Tobacco Cessation:Ready to Q uit: No; Counseling Given: Yes Alcohol Use Standard Drinks/Week Comments Yes 0 [...] Sign Reading Time Taken Comments Blood Pressure 96/67 07/18/2023 11:19 AM CDT Pulse 103 07/18/2023 11:19 AM CDT Temperature 36.9 ??C (98.5 ??F) 07/18/2023 11:19 AM C DT Respiratory Rate 18 07/18/2023 11:19 AM CDT Oxygen Saturation 97% 07/18/2023 11:19 AM CDT Inhaled Oxygen Concentration - - Weight 52.6 kg (116 lb) 07/18/2023 11:19 AM CDT Height 162.6 cm (5' 4 ) 07/18/2023 11:19 AM CDT Body Mass Index 19.91 07/18/2023 11:19 AM CDT documented in this encounter Patient Instructions * Patient Instructions* ZEV Gay - 07/18/2023 11:20 AM CDT Continue current dosages. Will call you with referral appt. documented in this encounter Progress Notes * ZEV Gay - 07/18/2023 11:20 AM CDT Reason for Visit: New Patient (Establish care/) and Diabetes History of Present Illness: 17 female here for hospital follow-up. She was recently diagnosed with type 1 diabetes. She came inin diabetic ketoacidosis. She was admitted to the ICU was in the hospital for 7 days. She has a past history of drug use. Currently taking 10 units of NovoLog on a sliding scale with meals 3 times a day as well as 35 units of Lantus every morning. States her blood sugars have been around the 200 range. 1 time was as high as 430. She has NovoLog to take in case of extremely high blood sugars. She states she is starting to gain weight again she was down to 96 pounds currently at 116. She is accompanied by her mother. Her mother is helping her with diet planning. She is trying to cut out any simple sugars carbohydrates etc. High-protein and good fat diet with low complex carbohydrate diet. New Patient Diabetes ROS: Review of Systems All other systems reviewed and are negative. Medications: Current Outpatient Medications: Glucose Blood test strip, 1 strip by Other route as needed. Use as instructed, Disp: 100 strip, Rfl: 0 Insulin Glargine-yfgn 100 UNIT/ML Solution Pen-injector, Inject 35 Units into the skin every morning for 30 days., Disp: 12 mL, Rfl: 1 ketorolac (ACULAR) 0.5 % ophthalmic solution, INSTILL 1 DROP INTO RIGHT EYE EVERY 6 HOURS NEEDEDFOR PAIN, Disp: , Rfl: melatonin 5 MG tablet, Take 2 tablets (10 mg total) by mouth nightly., Disp: , Rfl: NOVOLOG FLEXPEN RELION 100 UNIT/ML injection (PEN), Inject 10 Units into the skin see administration instructions. 10 units each meal Sliding scale, Disp: 12 mL, Rfl: 1 potassium chloride CR (KLOR-CON M) 20 MEQ tablet, Take 1 tablet (20 mEq total) by mouth daily., Disp: , Rfl: traZODone (DESYREL) 100 MG tablet, Take 1 tablet (100 mg total) by mouth nightly as needed., Disp: , Rfl: Allergies Allergen Reactions Kiwi Fruit Swelling Tongue swells with blisters [employer] [facility] [employer] [place] Flavor Swelling Tongue swelling and blisters Flexeril [Cyclobenzaprine] Nausea and Vomiting Pineapple Extract Unknown Past Medical History: Diagnosis Date Anxiety 2019 Depression 2020 Drug abuse ([facility]) 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[facility]) Type 1 diabetes ([facility]) Past Surgical History: Procedure Laterality Date TYMPANOSTOMY TUBE PLACEMENT Social History Socioeconomic History Marital status: Single Tobacco Use Smoking status: Every Day Types: Cigarettes Smokeless tobacco: Never Vaping Use Vaping status: Every Day Substances: Nicotine Devices: Disposable Substance and Sexual Activity 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 Constitutional: Appearance: Normal appearance. She is normal weight. Neurological: Mental Status: She is alert. Psychiatric: Mood and Affect: Mood normal. Behavior: Behavior normal. Thought Content: Thought content normal. Judgment: Judgment normal. Filed Vitals: 07/18/23 1119 BP: 96/67 Pulse: (!) 103 Resp: 18 Temp: 98.5 ??F (36.9 ??C) TempSrc: Core SpO2: 97% Weight: 52.6 kg (116 lb) Height: 1.626 m (5' 4 ) Diagnoses/Impression: 1. Type 1 diabetes mellitus without complication ([facility] HHS/[facility]) Glucose Blood test strip Insulin Glargine-yfgn 100 UNIT/ML Solution Pen-injector NOVOLOG FLEXPEN RELION 100 UNIT/ML injection (PEN) Ambulatory referral to Endocrinology (OTHER) Recommendations and Plan: Refer to endocrinology, Dr. Rodriguez. Will ensure that patient gets to endocrinology sooner than later. Orders Placed This Encounter Ambulatory referral to Endocrinology (OTHER) traZODone (DESYREL) 100 MG tablet potassium chloride CR (KLOR-CON M) 20 MEQ tablet DISCONTD: Insulin Glargine-yfgn 100 UNIT/ML Solution Pen-injector DISCONTD: NOVOLOG FLEXPEN RELION 100 UNIT/ML injection (PEN) Glucose Blood test strip Insulin Glargine-yfgn 100 UNIT/ML Solution Pen-injector NOVOLOG FLEXPEN RELION 100 UNIT/ML injection (PEN) Reviewed and updated this visit by provider: ZEV GAY Referring Provider: No ref. provider found PCP: ZEV GAY documented in this encounter Plan of Treatment Not on file documented as of this encounter Visit Diagnoses Diagnosis Type 1 diabetes mellitus without complication ([facility])- Primary Type I (juvenile type) diabetes mellitus without mention of complication, not stated as uncontrolled documented in this encounter Additional Health Concerns Assessment Noted Time PHQ-9 Depression Total Score: 14 024 11:38 AM CDT documented as of this encounter Care Teams Basket Turner Relationship Specialty Start Date End Date Eduardo Ló[place] [address] [place] [address] PCP - General Physician Band Builder Medical 07/12/23 08/14/23 documented as of this encounter
--- OUTSIDE RECORDS SUMMARY | 2024-04-04 01:21 | XMS_ITS | Encounter Summary ---
Author Organization [facility] Address [address] [place] [address]. [place], [place] [id number] [place] [address] Care Team Providers Care Wallpaper Remover Steam Name Role Phone Eduardo López Primary Care Provider [phone] Encounter Details Date Type Department Care Team (Latest Contact Info) Description 07/13/2023 Scan [facility] INFO SRVCS Scanned, Doc [...] on filedocumented in this encounter Care Teams Wallpaper Remover Steam Relationship Specialty Start Date End Date Eduardo López [place] [address] [place] [address] PCP - General Physician Technical Mgr Medical 07/12/23 08/14/23 documented as of this encounter
--- OUTSIDE RECORDS SUMMARY | 2024-04-04 01:21 | XMS_ITS | Encounter Summary ---
Author Organization [facility] Address [address] [place] [address]. [place], [place] [address] [place] [address] Care Team Providers Care Open Source Developer Name Role Phone Unavailable Primary Care Provider Unavailabl e Encounter Details Date Type Department Care Team (Late st Contact Info) Description 06/08/2016 Abstract [facility] Care [address] [place], [place] [phone] Cindy Landaverde, CREATIVE ART THERAPIST [address] [facility] [address] [address] Social History Tobacco Use Types Packs/Day Years Used Date Smoking Tobacco: Never Assessed Comments Unknown Sex and Gender Information Value Date Recorded Sex Assigned at Not on file Legal Sex Female 5:13 PM CDT Gender Identity Not on file Sexual Orientation Not on file documented as of this encounter Plan of Treatment Not on file documented as of this encounter Visit Diagnoses Diagnosis Streptococcal pharyngitis Streptococcal sore throat documented in this encounter
--- OUTSIDE RECORDS SUMMARY | 2024-04-04 01:21 | XMS_ITS | Encounter Summary ---
Author Organization [facility] Address [address] [place] [address]. [place] [address] [place] [address] Care Team Providers Care Filling Layer Up Name Role Phone None, Provider MD Primary Care Provider Unavaila ble Reason for Visit * Reason Comments Fall Facial Pain Encounter Details Date Type Department Care Team (Late st Contact Info) Description 08/15/2023 4:14 PM CDT - 08/15/2023 5:02 PM CDT Emergency [facility] Emergency Room [address] [place] [address] [id number] Luke Miller MD [address] [place] [address] Fall; Facial Pain Discharge Disposition: Home or Self Care [...] Sign Reading Time Taken Comments Blood Pressure 119/67 08/15/2023 4:16 PM CDT Pulse 76 08/15/2023 4:16 PM CDT Temperature 36.8 ??C (98.2 ??F) 08/15/2023 4:16 PM CD T Respiratory Rate 18 08/15/2023 4:16 PM CDT Oxygen Saturation 100% 08/15/2023 4:16 PM CDT Inhaled Oxygen Concentration - - Weight 59.9 kg (132 lb 0.9 oz) 08/15/2023 4:16 P M CDT Height 162.6 cm (5' 4 ) 08/15/2023 4:16 PM CDT Body Mass Index 22.67 08/15/2023 4:16 PM CDT documented in this encounter Discharge Instructions * Attachments The following attachments cannot be sent through Care Everywhere. * Mouth and dental injuries in adults ([place]arshallese) * Contusion Discharge Instructions ([place]ese) documented in this encounter Medications at Time of Discharge Continuous Glucose Sensor (FREESTYLE ELZBIETA 3 SENSOR) [...] meal Sliding scale 12 mL 1 4 Insulin Glargine-yfgn 100 UNIT/ML Solution Pen-injectorIndic ations:Type 1 diabetes mellitus without complication (CMS/HCC HHS/HCC) Inject 35 Units into the skin every morning for 30 days. 12 mL 1 4 08/17/19 24 ketorolac (ACULAR) 0.5 % ophthalmic solution INSTILL 1 DROP INTO RIGHT EYE EVERY 6 HOURS NEEDED FOR PAIN 3 01/04/20 24 potassium chloride CR (KLOR-CON M) 20 MEQ tablet Take 1 tablet (20 mEq total) by mouth daily. 01/04/20 traZODone (DESYREL) 100 MG tablet Take 1 tablet (100 mg total) by mouth nightly as needed. 01/04/20 documented as of this encounter ED Notes * Luke Miller MD - 08/15/2023 5:00 PM CDT Chief Complaint Chief Complaint Patient presents with Fall Facial Pain History of Present Illness 17-year-old female with type 1 diabetes presents following head injury. Patient reports that she recently had her insulin pump modified. During the day yesterday she became hypoglycemic and had a hypoglycemic seizure. When she lost consciousness she fell and hit her head on the bathtub. She was taken to [facility] where she was treated for hyperglycemia and ultimately discharged. When she fell she injured her nose and the right side of her forehead. She denies headache, nausea or vomiting, amnesia, confusion, numbness or weakness. Medical History ALLERGIES: Allergies Allergen Reactions Kiwi Fruit Swelling Tongue swells with blisters [place] Flavor Swelling Tongue swelling and blisters Flexeril [Cyclobenzaprine] Nausea and Vomiting Pineapple Extract Unknown MEDICATIONS: Prior to Admission medications Medication Sig Start Date End Date Taking? Authorizing Provider Continuous Glucose Sensor (FREESTYLE ELZBIETA 3 SENSOR) Misc Apply to the back of the arm every 14 days 07/21/23 ZEV Gay Glucose Blood test strip 1 strip by Other route as needed. Use as instructed 07/18/23 ZEV Gay Insulin Glargine-yfgn 100 UNIT/ML Solution Pen-injector Inject 35 Units into the skin every morningfor 30 days. Patient taking differently: Inject 12 Units into the skin every morning. 07/18/23 08/17/23 ZEV Gay Insulin Pen Needle (PEN NEEDLES) 32G X 4 MM Misc Use to inject insulin once daily in the morning. 07/19/23 ZEV Gay ketorolac (ACULAR) 0.5 % ophthalmic solution INSTILL 1 DROP INTO RIGHT EYE EVERY 6 HOURS NEEDED FOR PAIN 02/09/23 Default History Genericprovider melatonin 5 MG tablet Take 2 tablets (10 mg total) by mouth nightly. Doc [facility] Abstract NOVOLOG FLEXPEN RELION 100 UNIT/ML injection (PEN) Inject 10 Units into the skin see administrationinstructions. 10 units each meal Sliding scale 07/18/23 ZEV Gay potassium chloride CR (KLOR-CON M) 20 MEQ tablet Take 1 tablet (20 mEq total) by mouth daily. 07/13/23 Default History Genericprovider traZODone (DESYREL) 100 MG tablet Take 1 tablet (100 mg total) by mouth nightly as needed. Default History Genericprovider PAST MEDICAL HISTORY: Past Medical History: Diagnosis Date Anxiety 2019 Depression 2020 Drug abuse (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 Physical Exam Filed Vitals: 08/15/23 1616 BP: 119/67 Pulse: 76 Resp: 18 Temp: 98.2 ??F (36.8 ??C) TempSrc: Temporal SpO2: 100% Weight: 59.9 kg (132 lb 0.9 oz) Height: 1.626 m (5' 4 ) Physical Exam General: well developed, well nourished, no acute distress HEENT: moist mucous membranes, swelling and tenderness over the mid nasal bridge without deformity,no pain or deformity over the nasal bones bilaterally, mild ecchymosis to the upper lateral right forehead without hematoma. Resp: non-labored breathing on RA, speaks in full sentences CV: well perfused extremities GI: non-distended Msk: no joint swelling or gross deformity, ROM grossly normal Skin: no acute rashes, sores, lesions noted on exposed skin, no bruising or bleeding appreciated Neuro: A&Ox3, no gross neurologic deficits Diagnostic Studies / Procedures ELECTROCARDIOGRAMS: No results found for this visit on 08/15/23. LABORATORY STUDIES: No results found for this visit on 08/15/23. IMAGING STUDIES No orders to display ED Course / Medical Decision Making Medical Decision Making 17-year-old female presents for evaluation of facial injury. On presentation, the patient is afebrile vital signs are otherwise reassuring. Shortly following my interview with the patient she was called by her electrical troubleshooter and was asked to come to their office in order to have her insulin pump modified. Her primary concern upon coming to the ED today was that she may have a nasal bone fracture. Shortly following our discussion she asked to leave the ED in order to make her appointment. Regarding her head strike I have a low suspicion for intracranial injury particularly given history, exam, and absence of high risk features per [place] CT head rule thus I felt it was reasonable to defer imaging. Injury to her nasal bridge appears isolated over the cartilaginous tissues. There is no septal hematoma and both nares are patent and free of blood. I recommended that she continue to monitor her symptoms and recovery at home. If she continues to have pain or is concerned about persistent swelling I recommended that she see her primary care physician for referral to ENT for further evaluation. She expressed understanding and agreement. Discharged home in stable condition. Amount and/or Complexity of Data Reviewed Radiology: Details: CT head considered but deferred as the patient is low risk by [place] CT head rule Clinical Impression Closed head injury (Primary) Facial contusion Lip laceration Disposition: Discharge Luke Miller MD 08/17/23 1114 * Marianna Kenney RN - 08/15/2023 4:15 PM CDT Patient ambulatory to ED with chief concern of nose fracture. Patient states yesterday at 5am she had a hypoglycemic seizure, she fell and hit her face on the bath tub. She was seen and evaluated at [facility] yesterday. Today she c/o facial pain, mainly to nasal area, rated 6/10. documented in this encounter Plan of Treatment Not on file documented as of this encounter Visit Diagnoses Diagnosis Closed head injury- Primary Head injury, unspecified Facial contusion Contusion of face, scalp, and neck except eye(s) Lip laceration Open wound of lip, without mention of complication documented in this encounter Additional Health Concerns Assessment Noted Time PHQ-9 Depression Total Score: 14 024 11:38 AM CDT documented as of this encounter Care Teams Filling Layer Up Relationship Specialty Start Date End Date None, Provider, MD PCP - General UNKNOWN PHYSICIAN SPECIALTY 08/15/23 documented as of this encounter
--- OUTSIDE RECORDS SUMMARY | 2024-04-04 01:21 | XMS_ITS | Encounter Summary ---
Author Organization [facility] Address [address] [place] [address]. [place], [place] [id number] [place] [address] Care Team Providers Care It Desktop Support Specialist Name Role Phone Eduardo López Primary Care Provider Reason for Visit * Reason Onset Date Comments Diabetes 07/25/2023 Encounter Details Date Type Department Care Team (Late st Contact Info) Description 07/25/2023 Telephone [facility] Medical Group Family & Internal Medicine [facility] [address] [place] [address] Eduardo Ló[place] [address] [place] [address] Diabetes Social History Tobacco Use Types Packs/Day [...] as of this encounter Progress Notes * Adenike Ramirez PharmD - 07/25/2023 10:33 AM CDT Called and spoke to patient to set up appointment with PharmD for newly dx T2DM. Patient's mother answered phone and stated was at an endocrinology visit today with her daughter. Declines needing appt with pharmD at this time. documented in this encounter Plan of Treatment Not on file documented as of this encounter Visit Diagnoses Not on filedocumented in this encounter Additional Health Concerns Assessment Noted Time PHQ-9 Depression Total Score: 14 024 11:38 AM CDT documented as of this encounter Care Teams It Desktop Support Specialist Relationship Specialty Start Date End Date Eduardo Ló[place] [address] [place] [address] PCP - General Physician Hvac Commercial Salesperson Medical 07/12/23 08/14/23 documented as of this encounter
--- OUTSIDE RECORDS SUMMARY | 2024-04-04 01:21 | XMS_ITS | Encounter Summary ---
Author Organization [facility] Address [address] [place] [address]. [place], [place] [phone] [place] [address] Care Team Providers Care Locomotive Supervisor Name Role Phone Eduardo López Primary Care Provider [phone] Encounter Details Date Type Department Care Team (Latest Contact Info) Description 07/20/2023 Scan [facility] INFO SRVCS Scanned, Doc [...] documented as of this encounter Care Teams Locomotive Supervisor Relationship Specialty Start Date End Date Eduardo Ló[place] [address] [place] [address] PCP - General Physician Plumbing Engineering Draftsperson Medical 07/12/23 08/14/23 documented as of this encounter
--- OUTSIDE RECORDS SUMMARY | 2024-04-04 01:24 | XMS_ITS | Data Portability ---
Author Organization [facility] [place] Address [address] [place] [address] [place] [address] Assessment No assessment recorded. Plan of Treatment Reminders Order Date Submit Date Provider Last Modified By Organization Details Last Modified Time Details Appointments None recorded. Lab test, urine 2023 024 [email or web address] [place], [address], [place], [address], 4 17:35:33 test, urine 2023 024 [email or web address] 1 [place], [address], [place], [address], 4 14:29:26 urinalysis , dipstick 2023 024 [email or web address] 1 [place] [facility] [address], [place], [address], 4 14:31:22 culture, urine 2023 024 [facility] (Lab), [address], [place], [address], 4 07:02:27 Referral None recorded. Procedures None recorded. Surgeries None recorded. Imaging None recorded. Medication Orders Lo Loestrin Fe 1 mg-10 mcg (24)/10 mcg (2) tablet [address] [facility], [address] [facility] [address] [place] [address], [address], 4 12:41:27 Lo Loestrin Fe 1 mg-10 mcg (24)/10 mcg (2) tablet [address] [facility], [address], [address], 4 12:41:27 Nexplanon 68 mg subdermal implant 2023 024 [email or web address] Not available 17:35:22 Patient TargetsNo targets recorded. Patient InstructionsNo instructions recorded. Reason for Referral None Reported. Results Created Date Observation Date Name Description Value Unit Range Abnormal Flag Note LastModifiedBy Organization Detail LastModifiedTime 09/06/19 24 09/06/2023 pregn cristhian test, urine HCG negati ve Not Available [place] [address], [place], [address], 09/06/2023 17:22:24 11/24/19 24 11/24/2023 urina lysis , dipst ick Leukocytes trace Not Available [facility] [address], [place], [address], 11/24/2023 14:29:46 11/24/19 24 11/24/2023 urina lysis , dipst ick Nitrite normal Not Available [place] [address], [place], [address], 11/24/2023 14:29:46 11/24/19 24 11/24/2023 urina lysis , dipst ick Urobilinogen normal Not Available Taylor mar [address], [place], [address], 11/24/2023 14:29:46 11/24/19 24 11/24/2023 urina lysis , dipst ick Protein trace Not Available [place] [address], [place], [address], 11/24/2023 14:29:46 11/24/19 24 11/24/2023 urina lysis , dipst ick pH 8 Not Available [place] [address], [place], [address], 11/24/2023 14:29:46 11/24/19 24 11/24/2023 urina lysis , dipst ick Blood +++ Not Available [place] [address], [place], [address], 11/24/2023 14:29:46 11/24/19 24 11/24/2023 urina lysis , dipst ick Specific Cash 1.020 Not Available [facility] [address] [address], [place], [address], 11/24/2023 14:29:46 11/24/19 24 11/24/2023 urina lysis , dipst ick Ketone +1 Not Available [place] [address], [place], [address], 11/24/2023 14:29:46 11/24/19 24 11/24/2023 urina lysis , dipst ick Bilirubin normal Not Available [facility] [address], [place], [address], 11/24/2023 14:29:46 11/24/19 24 11/24/2023 urina lysis , dipst ick Glucose normal Not Available [place] [address], [place], [address], 11/24/2023 14:29:46 11/24/19 24 11/24/2023 urina lysis , dipst ick Appearance normal Not Available Pablo corley [address], [place], [address], 11/24/2023 14:29:46 11/24/19 24 11/24/2023 urina lysis , dipst ick Color normal Not Available [place] [address], [place], [address], 11/24/2023 14:29:46 11/24/19 24 11/24/2023 pregn cristhian test, urine HCG negati ve Not Available [place] [address], [place], [address], 11/24/2023 14:28:53 01/13/20 22 01/12/2022 US, pelvi s No observ ation record ed. [email or web address], [place], [address], 01/12/2022 12:47:50 01/13/20 22 01/12/2022 US, trans vagin al No observ ation record ed. [address], [place], [address], 01/12/2022 12:47:40 01/13/20 22 01/12/2022 US, pelvi s No observ ation record ed. ivonne Medina [address], [place], [address], 01/20/2022 11:01:51 Result Notes None recorded. Problems Name Problem SNOMED Code Status Onset Date Resolution Date Notes Provider Name and Address Organization Details Recorded Time Type 1 diabetes mellitus 17818589 Active 2023 Mylene rodriguez [facility] 14:23:45 Surveill ance of contrace ption Completed 201810/06/2021 Encounter for surveilla nce of contracep tives, unspecifi ed;Record ed Elsewhere : No Locati on: [facility] So urce: EHR Chron ic: N Practic e ID: [id number] Bill able Time: 10:00:00 AM Lynne rodriguez [facility] 2 10:51:[address] Concept Completed 201810/06/2021 Well woman check w/o abnormal finding;R ecorded Elsewhere : No Locati on: [facility] So urce: EHR Chron ic: N Practic e ID: [id number] Bill able Time: 10:00:00 AM Lynne rodriguez, [facility] 2 10:51:49 Problem Notes None recorded. Procedures Surgical History Date Name Laterality Status Provider Name and Address Organization Details Recorded Time 11/24/19 Control Implant Removal completed Marianna Jacques CNM [address], [place], [address], [facility] 11/24/2023 14:43:37 09/06/19 24 Control Implant Insertion completed ZOE Mari [address], [place], [address], [facility] 09/06/2023 17:47:35 01/18/20 22 Nexplanon Removal completed ZOE [address], [place], [address], [facility] 01/17/2022 12:20:18 01/11/20 20 Control Implant Insertion completed ZOE Vaca-BC [address], [place], [address], [facility] 01/11/2020 13:15:03 03/27/19 20 extraction of wisdom tooth completed Mylene Avalos [facility] 11/24/2023 14:25:33 03/27/19 08 removal of silastic tubes from ear completed Mylene Avalos [facility] 01/11/2020 13:13:00 Imaging Results Imaging Date Name Status LastModified by Organization Details LastModified Time 01/12/2022 US, pelvis completed [email or web address] [place] [address], [place], [address], 01/12/2022 12:47:50 01/12/2022 US, transvaginal completed [email or web address] Sharmila jackson [address], [place], [address], 01/12/2022 12:47:40 01/12/2022 US, pelvis completed [email or web address] Santose [address], [place], [address], 01/20/2022 11:01:51 Procedure Notes None recorded. Medical Equipment None Reported. Allergies Allergen ID Allergen Name Allergen Category Reaction Reaction Severity Criticality Documentation Date Start Date Code Code System Note Provider Name and Address Organization Details Recorded Time 2266 pineapple extract food Not available Not available Not available 12/30/2019 60373 74 RxNorm [facility]indy Gomez [facility] 17:40:11 Medications Name Sig Start Date Stop Date Status Note LastModified by Organization Details LastModified Time cyclobenzap rine 10 mg tablet TAKE 1 TABLET BY MOUTH THREE TIMES DAILY NEEDED FOR MUSCLE SPASM 08/03 completed Not Available Not Available Not Available amoxicillin 500 mg capsule TAKE 1 CAPSULE BY MOUTH THREE TIMES DAILY UNTIL GONE 04/01 completed Not Available Not Available Not Available clindamycin HCl 300 mg capsule Take 1 capsule twice a day by oral route for 7 days. 01/06 completed Not Available Not Available Not Available fluconazole 150 mg tablet TAKE 1 TABLET BY MOUTH NOW 01/06 completed Not Available Not Available Not Available citalopram 10 mg tablet TAKE 1 TABLET BY MOUTH ONCE DAILY 10/16 completed Not Available Not Available Not Available hydrocodone 5 mg-acetamin ophen 325 mg tablet TAKE 1 TO 2 TABLETS BY MOUTH EVERY 6 HOURS NEEDED FOR PAIN 04/01 completed Not Available Not Available Not Available hydroxyzine pamoate 50 mg capsule TAKE 1 CAPSULE BY MOUTH EVERY 8 HOURS NEEDED 08/03 completed Not Available Not Available Not Available ketorolac 10 mg tablet TAKE 1 TABLET BY MOUTH 4 TIMES DAILY NEEDED FOR PAIN 05/30 completed Not Available Not Available Not Available ketorolac 0.5 % eye drops INSTILL 1 DROP INTO RIGHT EYE EVERY 6 HOURS NEEDED FOR PAIN 05/30 completed Not Available Not Available Not Available potassium chloride ER 20 mEq tablet,exte nded release(par t/cryst) TAKE 1 BY MOUTH ONCE DAILY 11/23 completed Not Available Not Available Not Available trazodone 100 mg tablet TAKE 1 TABLET BY MOUTH EVERY DAY AT BEDTIME NEEDED 08/03 completed Not Available Not Available Not Available ciprofloxac in 0.3 % eye drops INSTILL 1 DROP IN AFFECTED EYE EVERY 2 HOURS WHILE AWAKE FOR 2 DAYS THEN EVERY 4 HOURS WHILE AWAKE FOR THE NEXT 5 DAYS 05/30 completed Not Available Not Available Not Available neomycin-po lymyxin-dex ameth 3.5 mg/mL-10,00 0 unit/mL-0.1 % eye drops INSTILL 2 DROPS INTO RIGHT EYE EVERY 4 HOURS FOR 10 DAYS 05/30 completed Not Available Not Available Not Available polymyxin B sulfate 10,000 unit-trimet hoprim 1 mg/mL eye drops INSTILL 1 DROP INTO RIGHT EYE EVERY 3 HOURS FOR 7 DAYS WHILE AWAKE . DO NOT EXCEED 6 DOSES IN 24 HOURS 05/30 completed Not Available Not Available Not Available fluoxetine 10 mg capsule TAKE 1 CAPSULE BY MOUTH ONCE DAILY FOR 30 DAYS 04/18 completed Not Available Not Available Not Available hydroxyzine HCl 10 mg tablet TAKE 1 TABLET ORALLY THREE TIMES DAILY NEEDED FOR 30 DAYS 05/30 completed Not Available Not Available Not Available amoxicillin 875 mg-potassiu m clavulanate 125 mg tablet TAKE 1 TABLET BY MOUTH TWICE DAILY FOR 10 DAYS 05/30 completed Not Available Not Available Not Available amoxicillin 500 mg-potassiu m clavulanate 125 mg tablet TAKE 1 TABLET BY MOUTH TWICE DAILY FOR 10 DAYS 05/30 completed Not Available Not Available Not Available tobramycin 0.3 %-dexametha sone 0.1 % eye drops,suspe nsion INSTILL 1 DROP INTO EACH EYE 4 TIMES DAILY 05/30 completed Not Available Not Available Not Available insulin lispro (U-100) 100 unit/mL subcutaneou s pen INJECT 8 TO 13 UNITS SUBCUTANE OUSLY THREE TIMES DAILY BEFORE MEAL(S) 8 UNITS WITH 50-60 GRAMS OF CARBS OF MEALS, AND ADD 3 UNITS IF GLUCOSE OVER 200, ADD 5 UNITS IF OVER 300, DAILY MAX 50 UNITS active Not Available Not Available No t Available escitalopra m 10 mg tablet TAKE 1 TABLET BY MOUTH ONCE DAILY 04/18 completed Not Available Not Available Not Available escitalopra m 20 mg tablet TAKE 1 TABLET BY MOUTH ONCE DAILY 04/18 completed Not Available Not Available Not Available Sprintec (28) 0.25 mg-35 mcg tablet Take 1 tablet by mouth once daily 01/10 completed Not Available Not Available Not Available Novolog FlexPen U-100 Insulin aspart 100 unit/mL (3 mL) subcutaneou s INJECT 8- 13 UNITS SUBCUTANE OUSLY THREE TIMES DAILY BEFORE MEALS WITH 50-60 GRAMS OF CARBS MEALS AND ADD 3 UNITS IF GLUCOSE OVER 200, ADD 5 UNITS IF OVER 300, DAILY MAX 50 UNITS DAILY active Not Available Not Available No t Available insulin glargine 35ml active Not Available Not Available Not Available Ketone Urine Test strips USE DIRECTED NEEDED 11/23 completed Not Available Not Available Not Available pen needle, diabetic 32 gauge x /32 USE 1 PEN NEEDLE 4 TIMES DAILY active Not Available Not Available No t Available Lo Loestrin Fe 1 mg-10 mcg (24)/10 mcg (2) tablet Take 1 tablet every day by oral route. 08/03 completed Not Available Not Available Not Available Nexplanon 68 mg subdermal implant Inject 1 implant by subcutane ous route. 2023 active Not Available Not Available Not Avai lable OneTouch Verio test strips 1 STRIP NEEDED USE INSTRUCTE D active Not Available Not Available No t Available Dexcom G6 Sensor device USE 1 SENSOR EVERY 10 DAYS active Not Available Not Available No t Available Dexcom G6 Transmitter device USE EVERY 90 DAYS active Not Available Not Available No t Available insulin glargine-yf gn (U-100) 100 unit/mL (3 mL) subcutaneou s pen INJECT 35 UNITS IN THE MORNING active Not Available Not Available No t Available Vitals Date Recorded Body height Body mass index (BMI) Body mass index (BMI) Percentile per age and sex Body weight Systolic blood pressure Diastolic blood pressure Provider Name and Address Organization Details Last Updated DateTime 2 162.56 cm 19.2 kg/m2 20 % 92139.6 3 g 108 mm[Hg] 75 mm[Hg] [facility] 12:00:22 Date Recorded Body height Body mass index (BMI) Body mass index (BMI) Percentile per age and sex Body weight Systolic blood pressure Diastolic blood pressure Provider Name and Address Organization Details Last Updated DateTime 3 162.56 cm 19.2 kg/m2 20 % 40249.6 3 g 115 mm[Hg] 77 mm[Hg] [facility] 3 10:59:23 Date Recorded Body height Body mass index (BMI) Percentile per age and sex Body mass index (BMI) Body weight Systolic blood pressure Diastolic blood pressure Provider Name and Address Organization Details Last Updated DateTime 4 162.56 cm 47 % 21.5 kg/m2 22997.0 5 g 112 mm[Hg] 73 mm[Hg] Renetta Tariq [facility] 4 12:40:32 Date Recorded Body height Body mass index (BMI) Body mass index (BMI) Percentile per age and sex Body weight Systolic blood pressure Diastolic blood pressure Provider Name and Address Organization Details Last Updated DateTime 4 162.56 cm 22.4 kg/m2 58 % 26631.4 5 g 114 mm[Hg] 78 mm[Hg] Lynne Benjamin [facility] 4 17:26:54 Date Recorded Body height Body mass index (BMI) Body mass index (BMI) Percentile per age and sex Body weight Systolic blood pressure Diastolic blood pressure Provider Name and Address Organization Details Last Updated DateTime 4 162.56 cm 23 kg/m2 63 % 72192.3 8 g 104 mm[Hg] 66 mm[Hg] Mylene Avalos [facility] 4 14:19:11 Social History Question Answer Notes LastModified by Organizat ion Details LastModified Time Tobacco Smoking Status Current Every Day Smoker also vape Renetta Tariq [facility] 08/04/2023 12:44:23 Do You Have An Advance Directive? No Information not available 01/06/2022 What Is Your Level Of Alcohol Consumption? Occasional Information not available 04/18/2022 How Many Years Have You Consumed Alcohol? 3 Information not available 01/06/2022 Are You Blind Or Do You Have Difficulty Seeing? No Information not available 10/05/2021 What Is Your Level Of Caffeine Consumption? Moderate Information not available 01/06/2022 How Much Tobacco Do You Chew? None Information not available 01/06/2022 In The 14 Days Before Symptom Onset, Have You Had Close Contact With A Laboratory-confir med COVID-19 While That Case Was Ill? No Information not available 01/06/2022 In The 14 Days Before Symptom Onset, Have You Had Close Contact With A Person Who Is Under Investigation For COVID-19 While That Person Was Ill? No Information not available 01/06/2022 Have You Been To An Area Known To Be High Risk For COVID-19? No Information not available 01/06/2022 Are You Deaf Or Do You Have Serious Difficulty Hearing? No Information not available 10/05/2021 What Type Of Diet Are You Following? REGULAR Information not available 01/06/2022 Which Illicit Or Recreational Drugs Have You Used? Prem [email or web address] Information not available 08/04/2023 Do You Or Have You Ever Used E-cigarettes Or Vape? Never Used Electronic Cigarettes Information not available 04/18/2022 What Is The Highest Grade Or Level Of School You Have Completed Or The Highest Degree You Have Received? BX11071-1 Information not available 01/06/2022 What Is Your Occupation? [employer] Information not available 04/18/2022 Are There Any Guns Present In Your Home? No Information not available 01/06/2022 What Was The Date Of Your Most Recent Tobacco Screening? 11/24/2023 [email or web address] Information not available 11/24/2023 Do You Use Protection During Sex? Always Information not available 01/06/2022 Do You Use Your Seat Belt Or Car Seat Routinely? Yes Information not available 01/06/2022 Do You Have Smoke And Carbon Monoxide Detectors In Your Home? Yes Information not available 01/06/2022 At What Age Did You Start Smoking Tobacco? 13 Information not available 04/18/2022 Do You Or Have You Ever Used Smokeless Tobacco? Never Used Smokeless Tobacco Information not available 04/18/2022 How Much Tobacco Do You Smoke? 1 PPD Information not available 04/18/2022 Do You Feel Stressed (tense, Restless, Nervous, Or Anxious, Or Unable To Sleep At Night)? [id number] Information not available 04/18/2022 Do You Use Any Illicit Or Recreational Drugs? Yes Information not available 01/06/2022 Do You Use Sunscreen Routinely? Yes Information not available 01/06/2022 How Many Years Have You Smoked Tobacco? 3 Information not available 04/18/2022 Have You Used IV Drugs? No Information not available 01/06/2022 Sex: Unknown Functional Status Question Answer Note LastModified by Organizat ion Details LastModified Time Do you have difficulty walking or climbing stairs? No Information not available 04/18/2022 Are you able to walk? YESWOREST Information not available 10/05/2021 Are you able to care for yourself? Yes Information not available 04/18/2022 Do you have difficulty dressing or bathing? No Information not available 04/18/2022 What is your exercise level? Moderate Information not available 01/06/2022 Mental Status None recorded. Family History Relationship Description Onset Age of this Age Resolved Age Notes LastModified by Organization Details LastModified Time Mother Anemia [email or web address] Not available 17:40:24 Mother Cyst of ovary [email or web address] Not available 2022 10:53:07 Sister Cyst of ovary [email or web address] Not available 2022 10:53:07 Maternal Grandmother Cyst of ovary [email or web address] Not available 2022 10:53:07 Maternal Grandmother Uterine prolapse [email or web address] Not available 2022 10:53:07 Maternal Aunt Cyst of ovary [email or web address] Not available 2022 10:53:08 Maternal Aunt Disorder of thyroid gland [email or web address] Not available 2019 17:41:22 Notes:Maternal aunt: Thyroid disease, ovarian cyst Maternal grandmother: Ovarian cyst, prolapsed uterus Mother: ovarian cyst, Anemia Sister: Ovarian cyst Medical History Condition Response Allergies (Food, seasonal, environmental ) N Other Y Breast Cancer N Drug/Latex Allergies/Reactions N Blood Transfusion N Dermatologic Disorders N Lung Disease N Defects or Inherited Disease N Breast Problem N Gestational Diabetes N Hematologic disorders N Anesthesia Complications N History of STI N Deep Vein Thrombosis N Polycystic ovary syndrome N Anxiety Disorder N Autoimmune disease N Arthritis N Infertility N Polyps N Acid Reflux (GERD) N History of abnormal pap N Cancer N Stroke N Varicosities N Neurologic/Epilepsy N Endometriosis N High Cholesterol N Headaches N Fibromyalgia N Kidney Disease N Heart Problems N Kidney or Bladder Problems N Thyroid Problems N GI Problems N Eating Disorder N Anemia N Art (IVF or FET) N Psychiatric Illness N Ovarian Cancer N Diabetes Y Pulmonary (TB, Asthma) N Hepatitis/Liver Disease N Eczema N Urinary Tract Infection N Abuse/Domestic Violence N Asthma N Trauma/Violence N Depression/ depression Y Heart Disease N Pre-Eclampsia N Hypertension N Osteoporosis N Thrombophilias N Gynecological History Statement/Question Response Abnormal Pap N Date of Last Mammogram Date of LMP 09/03/2023 N On BCP's at Conception? Y STIs/STDs N Was last menstrual period normal N HPV Vaccine Y Colposcopy Current Control Method None Are cycles usually normal N Date of Last Colonoscopy Sexually Active? Y Condoms Menses Monthly N Date of DEXA bone scan Age of first menstrual cycle 6 Date of Last Pap Smear Sexual Problems? N LMP Definite Desired Control Method Condoms N Obstetrics History GPAL:G 0 P 0 0 0 0 Type Value Living 0 Total 0 Past Encounters Encounter ID Performer Location Encounter Start Date Encounter Closed Date Diagnosis/Indication Diagnosis SNOMED-CT Code Diagnosis ICD10 Code Diagnosis Note [id number] Rosario Ramey , [facility] [address] [address] 12/31/2019 14:42:04 12/31/2019 15:32:12 Gynecologic examination [id number] Z01.419 Take Calcium with Vitamin D 1200mg daily if not receiving in daily diet. It is strongly advised to have an annual flu shot and up can obtain at most pharmacies . If you have not had a TDap shot in the last 10 years you should obtain one as well. Discussed with patient & provided with informatio n regarding Gardisil vaccine to prevent the 4 strains for HPV that cause cervical cancer. Encourage safe sexual practices, to use condoms and limit partners if not already in a monogamous relationsh ip. Do monthly self breast exams. BRCA testing is now available for patients with strong genetic history of female cancer. If interested contact the office. Engage in daily exercise of low impact aerobic exercise 45-60 minutes 4-5 times weekly. Avoid tobacco, illicit drugs, and alcohol. This lifestyle behavior pattern will lead to less health conditions and longer life span. If BMI greater than 25 weight watchers or dietary consult advised. Pap smear is not recommende d prior to the age of 21. If you have any concerns, pelvic, or vaginal problems we can discuss testing. Patient received above instructio ns, and questions have been answered. If you have any questions please call or respond to this email. Patient was made aware of the patient portal and may obtain a paper copy of today's plan if desired. [facility] ion care management [id number] Z30.9 N94.5 Discussed all control options in depth and pt is interested in Nexplanon. Discussed all risks and benefits including irregular unschedule d bleeding. Pt verbalized understand ing and would like to proceed. She is aware that she needs to call us on the 1st day of her period to schedule placement. We agreed to have her stay on her OCP & return during placebo week for placement of nexplanon. [id number] Rosario Ramey [facility] [address] [address] 01/11/2020 12:39:33 01/13/2020 15:04:20 Removal of subcutaneous contraceptive [id number] Z30.46 Patient is here currently on her menses. She was given all the r/b/a of placement of the Nexplanon device and has signed the consent. She is fully aware of all possible side effects of the device and has decided to move forward with placement. Insertion site was cleansed with betadine and 3cc lidocaine used for anesthesia . Device was placed in the left arm per usual fashion w/o complicati on and patient instructed to f/u in one month or earlier if there are any si/sx of infection or hypersensi tivity at the insertion site [id number] Monse Lozada WILLY [place] [address] [address] 10/05/2021 16:48:56 10/06/2021 15:00:42 Contraception care management [id number] Z30.9 Abdominal pain [id number] R10.9 Urine Culture sent to r/o UTIUrine STI testing sentUrine hCG (-)Pelvic u/s orderedWe discussed the various causes of pelvic pain, and need for imaging for further investigat ion.Will await results / imaging, discuss results at f/u appointmen t and patient will decide if she would like to contine with nexplanon To monitor for any worsening symptoms, extreme abdominal pains, n/v, fevers, etc. Call the office or go to the ED Time spent in visit is a total of 30 mins with at least 50% of visit consisting of counseling and review of plan of care. Venereal d isease screening [id number] Z11.3 [id number] [facility] [address] [address] 04/01/2020 09:55:26 04/01/2020 17:21:45 Contraception care management [id number] Z30.9 N94.5 Patient is here today for a medicaton check of control nexplanon. She voices goals of therapy have been met with use of this therapy. She denies neg side effects. She is eating, drinking, sleeping well; moods are stable & periods are well regulated. Wishes to continue this method of BC. Appropriat e to continue this medication . Time spent in visit is a total of 15 mins with at least 50% of visit consisting of counseling and review of plan of care. [id number] Flores Avalos [facility] [place] [address] [address] 10/07/2021 09:51:48 10/07/2021 10:16:55 Lower abdominal pain [id number] R10.30 [id number] [facility] [address] [address] 10/16/2021 09:27:03 10/18/2021 16:31:06 Pain in pelvis [id number] R10.2 US reviewedCo nsider possibilit y that had a cyst that has since ruptured based on result findings.W e agreed to do a round of abx for inflammati on & will take prn midol for cramping pain.If this does not help further resolve this issue we need to consider evaluating other body systems (i.e. musculoske letal, GI, etc)She agrees & verbalized understand ing. Time spent in visit is a total of 15 mins with at least 50% of visit consisting of counseling and review of plan of care. [id number] Monse Lozada WILLY [place] [address] [address] 01/06/2022 14:08:41 01/06/2022 14:45:52 Pain in pelvis [id number] R10.2 We reviewed the various causes of pelvic painPelvic u/s ordered for further evaluation STI testing declined (Not SA x 1 year)UPT (-) todayShe would like to keep nexplanon for now. We discussed trial of low dose OCP in combinatio n with nexplanon to see if this would help her from developing ovarian cyst. She desires to try this.She denies hx of DVT/PE, HTN, Stroke/GA, cancer, liver disease, or migraine with aura1 month of lo loestrin [facility] to [facility] for pelvic u/s and u/s f/uED precaution s discussed Discussed all control options in great detail. Pt would like to start ocp. She is aware of the risks and benefits. She does not have any medical condition that is contraindi cated with the use of estrogen containing control. She is also aware of the importance of taking at the same time every day. Encouraged use of condoms as the pill does not protect against STD's. Time spent in visit is a total of 30 mins with at least 50% of visit consisting of counseling and review of plan of care. Constipation [id number] K5 9.00 Likely constipati on is contributi ng to pain. Encouraged daily stool softener, increase fiber intake. Referral to GI sent Contracept ion care management [id number] Z30.9 [id number] Rochelle Storm [place] [address],[place] [address] 01/12/2022 10:56:54 01/12/2022 11:52:56 Pain in pelvis 55196702 R10.2 [id number] ZOE Mari [place] [address],[place] [address] 01/13/2022 16:08:41 01/13/2022 16:44:45 Abdominal pain 90094265 R10.9 We reviewed normal pelvic u/sShe was able to get in to a GI provider and states she was diagnosed with IBS-C. She had labs done and is f/u with them in 4 weeks.Her cramping has improved since starting the OCPWe discussed possible endometrio sis component as well. Option for MD consult to explore this further. She would like to continue with the GI specialist and RTC for MD consult if symptoms continue.S he would like to have her nexplanon removed and continue taking the OCP for BC instead. She does not like the irregular bleeding/c ramping with nexplanon. She will schedule to RTC for nexplanon removal.ED precaution s discussed Time spent in visit is a total of 20 mins with at least 50% of visit consisting of counseling and review of plan of care. Contracept ion care management [id number] Z30.9 [id number] ZOE Mari [place] [address],[place] [address] 01/17/2022 11:43:42 01/17/2022 13:06:27 Removal of subcutaneous contraceptive [id number] Z30.46 Removal site was cleansed with betadine and 3cc of lidocaine used for anesthesia . Device was removed in normal fashion without difficulty . Steri stips and pressure bandage placed. Patient tolerated procedure well. We discussed backup method of control - already on OCP. Happy with OCP.ED precaution s discussed Contracept ion care management [id number] Z30.9 Continue OCP. RTC for med check in 3 months [id number] ZOE Mari [place] [address] [address] 04/18/2022 10:52:36 04/18/2022 11:12:41 Contraception care management [id number] Z30.9 Patient is here today for a medicaton check of control. She voices goals of therapy have been met with use of this therapy. She denies neg side effects. She is eating, drinking, sleeping well; moods are stable & periods are well regulated. Wishes to continue this method of BC. Appropriat e to continue this medication . Happy with OCPSample given - 128800U, Sep 2022Rx sent x 12 monthsRTC in 1 year or sooner if needed Time spent in visit is a total of 15 mins with at least 50% of visit consisting of counseling and review of plan of care. [id number] ZOE Mari [place] [address] [address] 08/04/2023 12:36:14 08/04/2023 13:39:16 Contraception care management [id number] Z30.9 Discussed all control options in depth and pt is interested in Nexplanon. Discussed all risks and benefits including irregular unschedule d bleeding. Pt verbalized understand ing and would like to proceed. She is aware that she needs to call us on the 1st day of her period to schedule placement. declined STI screen Time spent in visit is a total of 20 mins with at least 50% of visit consisting of counseling and review of plan of care. [id number] ZOE Mari [place] [address] [address] 09/06/2023 17:18:15 09/06/2023 18:11:25 Contraception care management [id number] Z30.9 R/b of nexplanon discussed and accepted by patientUPT (-)consent reviewed and signednexp lanon insertion performed (see procedure note)preca utions discussed Insertion of subcutaneous contraceptive [id number] Z30.46 [id number] Marianna Jacques CNM [place] [address] [address] 11/24/2023 13:49:47 11/24/2023 14:52:37 Abnormal uterine bleeding [id number] 9100 N93.9 Blood in urine 28183163 R31.9 Removal of subcutaneous contraceptive 680039006 Z30.46 tolerate wellmonito r cyclesf/u [facility] Health Concerns Section Related Observation LastModified by Organization Detai ls LastModified Time None Recorded Concern Status LastModified by Organization Details LastModified Time None Recorded Advance Directives Directive N: Payers Encounter Date Sequence Insurance Name Policy Number Policy Munguia Covered Member ID Munguia Member ID Guarantor Name 01/17/2022 1 [place] [facility] PUBLIC AID Himanshu Damon [id number] Himanshu Damon 04/18/2022 1 [facility] ON OR AFTER 09/24/20 (MEDICAID REPLACEMENT - HMO) Himanshu Damon [id number] Himanshu Damon 08/04/2023 1 [facility] ON OR AFTER 09/24/20 (MEDICAID REPLACEMENT - HMO) Himanshu Damon [id number] Himanshu Damon 09/06/2023 1 [facility] ON OR AFTER 09/24/20 (MEDICAID REPLACEMENT - HMO) Himanshu Damon [id number] Himanshu Damon 11/24/2023 1 [facility] ON OR AFTER 20 (MEDICAID REPLACEMENT - HMO) Himanshu Damon [id number] Himanshu Damon Notes Date Note Type Note Provider Name and Address Organization Details Recorded Time 01/17/2022 text/html 16yo Presents fo r nexplanon removalWould like to take OCP instead ZOE Mari [address], [place], [address], [facility] 01/17/2022 12:21:57 04/18/2022 text/html 16yo Presents fo r BC med checkHappy with BC!No issues, feeling so much better. No cramps ZOE Mari [address], [place], [address], [facility] 04/18/2022 11:09:41 08/04/2023 text/html 17yo [id number] for BC consultwas on OCP, forgot to take pillswas previously on nexplanon and liked this methodrecently diagnosed with type 1 diabetes ZOE Mari [address], [place], [address], [facility] 08/04/2023 13:17:24 09/06/2023 text/html 18yo [id number] for nexplanon insertionLMP 09/03/2023 ZOE Mari [address], [place], [address], [facility] 09/06/2023 17:49:07 11/24/2023 text/html pt would like nexplanon removed, bleeding daily and that happened last time, but now diagnosed type 1 diabetic, brittle per endocrine and they would like her to remove it, does not want IUD , discussed was safest option for her diabetes, pill patches/ring feels like she may forget. discussed barrier methodsformer methamphetamine addict, thinks its whats caused diabetes, 8 mo sober! Marianna Jacques, SELE[place] [address], [place], [address], [facility] 11/24/2023 14:45:08 OBGyn Episode No OBEpisode recorded.
--- OUTSIDE RECORDS SUMMARY | 2024-04-04 01:24 | XMS_ITS | Patient Health Record ---
Author Organization [facility] Address [address] [place] [address] Care Team Providers Care Forestry Hunter Name Role Phone Maru Montoya Primary Care Provider Allergies No Known Allergies Reason For Referral No Information Medications Medication SIG (Take, Route, Fr equency, Duration) Notes Start Date End Date Status hydrOXYzine HCl 10 MG 1 tablet as needed Orally three times daily as needed for 30 days Active PROzac 10 MG 1 capsule Orally Onc e a day for 30 day(s) Active Social History Tobacco Use: Social History Observation Description Date Details (start date - stop date) Never Smoker NA - NA Sex Assigned At : Social History Observation Description Sex Assigned At Female Dont use, Tobacco Use/Smoking Question Answer Notes Are you a nonsmoker Problems Problem Type SNOMED Code ICD Code Onset Dates Problem Status W/U Status Risk Notes Problem 49736666 Anxiety (F41.9) Active confirmed Problem 307331577 Moderate episode of recurrent major depressive disorder (F33.1) Active confirmed Plan Of Treatment No Information Insurance Providers Payer Name Payer Address Payer Phone Subscriber Number Group Number Insured Name Patient Relationship to Insured Coverage Start Date Coverage End Date MEDICAID [address] [place] [address] [id number] Himanshu Win am Self - patient is the insured 1 MED[employer] [address] [place] [address] [id number] Himanshu Win am Self - patient is the insured 1 Medical (General) History Surgical History Surgery Date(Month/Year) wisdom teeth removal 2020 Hospitalization History Reason Date(Month/Year) Brown recluse spider bite (9 day stay)
--- OUTSIDE RECORDS SUMMARY | 2024-04-04 17:33 | XMS_ITS | Encounter Summary ---
Author Organization [facility] Address [address] [place] [address] Care Team Providers Care Crusher Supervisor Name Role Phone Eduardo López PA-C Primary Care Provider [phone] Reason for Visit * Reason Onset Date Comments Medication Clarification 08/28/2023 Encounter Details Date Type Department Care Team (Late st Contact Info) Description 08/28/2023 Telephone [facility] - Endocrinology [address] [facility] [address] [place] [address] Meghana White MD [address] [place] [address] [place] [address] Medication Clarification Social History Tobacco [...] it on, Pt mother call back # [phone] documented in this encounter Plan of Treatment Upcoming Encounters Date Type Department Care Team (Late st Contact Info) Description 04/09/2024 8:40 AM SIGNAL TESTER Office Visit [facility] - Endocrinology [address] [facility] [address] [place] [address] Hilario Traore MD [address] [place] [address] documented as of this encounter Visit Diagnoses Not on filedocumented in this encounter Care Teams Crusher Supervisor Relationship Specialty Start Date End Date Eduardo López PA-C [address] [place] [address] PCP - General Physician Research Animal Facility Supervisor 07/25/23 documented as of this encounter
--- OUTSIDE RECORDS SUMMARY | 2024-04-04 17:33 | XMS_ITS | Encounter Summary ---
Author Organization [facility] Address [address] [place] [address] Care Team Providers Care Patternmaker Plaster Name Role Phone Melany Vieira MD Primary Care Provider [phone] Reason for Visit * Reason Comments Mass bump to left great t oe present for since october 2009 Encounter Details Date Type Department Care Team (Latest Contact Info) Description 07/19/2010 1:00 PM CDT - 07/19/2010 1:19 PM CDT Hospital Encounter [facility] - Dermatology [address] [place] [address] Discharge Disposition: Home or Self Care Social [...] pts aunt place a call to a blueprint engineer for further evaluation. documented in this encounter [...] st Contact Info) Description 04/09/2024 8:40 AM DYNAMO REPAIRER Office Visit [facility] - Endocrinology [address] [place] [address] Hilario Traore MD [address] [place] [address] Scheduled Orders Name Type Priority Associated Diagnoses Orde r Schedule XR TOES 2+ VW LEFT Imaging Routine PAINFUL BUMP L GREAT TOE Ordered: 07/19/2010 documented as of this encounter Visit Diagnoses Diagnosis PAINFUL BUMP L GREAT TOE Localized superficial swelling, mass, or lump Plantar wart documented in this encounter Care Teams Patternmaker Plaster Relationship Specialty Start Date End Date Melany Vieira MD [address] [facility] [address] [place] [address] PCP - General 07/19/10 12/19/13 documented as of this encounter
--- OUTSIDE RECORDS SUMMARY | 2024-04-04 17:33 | XMS_ITS | Encounter Summary ---
Author Organization [facility] Address [address] [place] [address] Care Team Providers Care Media Analyst Name Role Phone Nohemy June MD Primary Care Provider [phone] Reason for Visit * Reason Comments Rash [...] Expiration Date Visits Re quested Visits Authorized [id number] Closed 1 1 Encounter Details Date Type Department Care Team (Latest Contact Info) Description 12/20/2013 11:33 AM CDT - 12/22/2013 8:46 AM CDT Hospital Encounter CG [address] [place] [address] Juaquin Hernandez MD [address] [place] [phone] Vanessa Banks MD [address] [place] [phone] Medical Inpatient Discharge Disposition: Home or Self [...] CDT Growth Chart: [facility] (Girls, 2- 20 Years) documented in this [...] 4 hours as needed for Itching. Paco Currie CONTINUE taking these medications Instructions Authorizing Provider ibuprofen 200 MG tablet Commonly known as: MOTRIN Take 200 mg by mouth every 6 hours as needed for Pain. Discharge Procedure Orders Why you were hospitalized Order Specific Question Answer Comments Your discharge diagnosis is Brown recluse spider bite [[id number]] Follow up with Primary Care Provider (PCP) Our records show your Primary Care Provider (PCP) is Nohemy June. Order Specific Question Answer Comments Follow Up Instructions: in the next 1-2 weeks No special diet needed Resume normal home diet as tolerated. Activity as tolerated Rest today, and increase activity level tomorrow as tolerated. When to call [facility] Special[facility] if you have questions or concerns, or [...] Specialty: Family Medicine Relationship: PCP - General [address] [place] [phone] Chase Cole [facility] CC: Nohemy June [address] [place] [phone] Associated attestation - Vanessa Banks MD - [...] 12/22/2013 for further details. Vanessa Banks MD [phone] * Kim Conley RN - 12/21/2013 6:42 [...] the original note were not included. Pediatric [facility] Daily Progress Note Himanshu Damon 12/21/2013 9:19 [...] Yellow, Dark Yellow Clarity UA Clear Specific Greybull UA >=1.030 1.005-1.030 pH UA 6.0 5.0-8.0 [...] 37.9 24.0-66.0 % Lymph 50.4 22.0-61.0 % [place] 7.6 3.0-15.0 % Eos 3.7 0.0-10.0 % Baso 0.4 Immature Grans 0.0 Neutro Abs 2.05 Lymph Abs 2.72 [place] Abs 0.41 Eosin Abs 0.20 Baso Abs [...] 24-66 % Lymph Manual 37 22-61 % [place] Manual 17 (*) 3-15 % Eos Manual [...] H&P for further details. Vanessa Banks MD [phone] CC: Nohemy June [address] [place] [phone] * Brianna Gonzales, - 12/21/2013 4:33 AM [...] AM Brianna Gonzales DO CC: Nohemy June [address] [place] [phone] Associated attestation - Vanessa Banks MD - 12/21/2013 10:15 AM CDT Vanessa Banks MD documented in this encounter Consult Notes * Taylor Feliz RD/VIKRAM - 12/21/2013 1:07 PM CDTAssociated Order(s): IP CONSULT TO NUTRITIONAL SERV Nutrition consult received per nursing screen. Patient has been evaluated by clinical nutrition anddoes not require nutrition intervention at this time. Ramila Feliz, , RD, LD [phone] (weekend coverage) documented in this encounter ED Notes * Juaquin Hernandez MD - 12/20/2013 11:33 PM CDT Provider contact with the patient: 12/20/2013 23:33 Himanshu Damon [id number] [facility] EMERGENCY DEPARTMENT History Chief Complaint Patient presents with ??? Rash To ER for spider bite to right calf. Has been 6 [address]. Placed on antibiotics then told not to take them. Strept negative yesterday.Red rash to body, arms and legs. Both checks red. I have read the resident/BUILDING CUSTODIAN history. Unless appended by me below, I agree with findings as documented. HPI Comments: 8 yo with rash and suspected spider bite. Started abrasion on right leg 12/15... Then rash around it, then necrotic, then intermittent systemic papular rash; started on clindamycin in outside ED 4 days ago; not improving... Seen at [facility] 2 days ago and told [...] kg/m2 Physical Exam I have reviewed the resident/BUILDING CUSTODIAN physical exam. Unless appended by me below, [...] MANUAL - Abnormal; Notable for the following: [place] Manual 17 (*) All other components within [...] hours a day, from any computer, through [employer], the online version of our electronic medical record. If you would like to use this service, please call Elsie Jauregui, Connectivity Coordinator, at . We appreciate the opportunity to care for your patients. If you would like additional information, please call the emergency department directly at . Sincerely, Pravin Tran MD Division of Emergency Medicine [place], [place] [facility] [place] FIRST TRAUMA I DESIGNATED EMERGENCY DEPARTMENT Provider contact with the patient: 12/20/2013 22:06 Himanshu Damon [id number] [facility] EMERGENCY DEPARTMENT History Chief Complaint [...] st Contact Info) Description 04/09/2024 8:40 AM SOFTWARE FIRMWARE ENGINEER Office Visit [facility] - Endocrinology [address] [facility] [place] [phone] Hilario Traore MD [address] [place] [address] documented as of this encounter Procedures Procedure [...] 4.5 - 14.5 x10^9/L 12/22/2013 7:02 AM [facility] RBC 3.87(L) 4.00 - 5.20 x10^12/L 12/22/2013 7:02 AM [facility] Hemoglobin 10.9(L) 11.5 - 15.5 gm/dL 12/22/2013 7:02 AM [facility] Hematocrit 32.1(L) 35.0 - 45.0 % 12/22/2013 7:02 AM [facility] MCV 82.9 77.0 - 95.0 fl 12/22/2013 7:02 AM [facility] MCH 28.2 25.0 - 33.0 pg 12/22/2013 7:02 AM [facility] MCHC 34.0 31.0 - 37.0 gm/dL 12/22/2013 7:02 AM [facility] Platelet Count 162 100 - 400 x10^9/L 12/22/2013 7:02 AM [facility] RDW-CV 12.6 11.5 - 14.0 % 12/22/2013 7:02 AM [facility] MPV 9.4 6.0 - 9.5 fl 12/22/2013 7:02 AM [facility] Neutrophils % 43.3 24.0 - 66.0 % 12/22/2013 7:02 AM [facility] Lymphocytes % 44.7 22.0 - 61.0 % 12/22/2013 7:02 AM [facility] Monocytes % 7.8 3.0 - 15.0 % 12/22/2013 7:02 AM [facility] Eosinophils % 2.4 0.0 - 10.0 % 12/22/2013 7:02 AM [facility] Basophils % 1.0 % 12/22/2013 7:02 AM [facility] Immature Granulocytes 0.8 % 12/22/2013 7:02 AM CDT [facility] Neutrophil Absolute 2.17 x10^9/L 12/22/2013 7:02 AM CDT [facility] Lymphocytes Absolute 2.24 x10^9/L 12/22/2013 7:02 AM CDT [facility] Monocytes Absolute 0.39 x10^9/L 12/22/2013 7:02 AM CDT [facility] Eosinophils Absolute 0.12 x10^9/L 12/22/2013 7:02 AM CDT [facility] Basophils Absolute 0.05 x10^9/L 12/22/2013 7:02 AM CDT [facility] Immature Granulocytes Absolute 0.04 x10^9/L 12/22/2013 7:02 AM T [facility] Blood BLOOD SPECIMEN / Unknown Lab Venipuncture / Unknown 12/22/2013 6:46 AM CDT 12/22/2013 6:57 AM CDT Brianna Gonzales DO LAB - HEMATOLOGY ORD ERABLES Performing Organization Address City/State/[facility] Co de Phone Number [facility] [place] [address] * (ABNORMAL) CBC W AUTO DIFFERENTIAL (12/21/2013 7:25 PM CDT) WBC 4.9 4.5 - 14.5 x10^9/L 12/21/2013 8:19 PM CDT [facility] RBC 3.83(L) 4.00 - 5.20 x10^12/L 12/21/2013 8:19 PM CDT [facility] Hemoglobin 10.8(L) 11.5 - 15.5 gm/dL 12/21/2013 8:19 PM CDT [facility] Hematocrit 31.6(L) 35.0 - 45.0 % 12/21/2013 8:19 PM T [facility] MCV 82.5 77.0 - 95.0 fl 12/21/2013 8:19 PM CDT [facility] MCH 28.2 25.0 - 33.0 pg 12/21/2013 8:19 PM CDT [facility] MCHC 34.2 31.0 - 37.0 gm/dL 12/21/2013 8:19 PM T [facility] Platelet Count 169 100 - 400 x10^9/L 12/21/2013 8:19 PM T [facility] RDW-CV 12.7 11.5 - 14.0 % 12/21/2013 8:19 PM [facility] MPV 9.5 6.0 - 9.5 fl 12/21/2013 8:19 PM T [facility] Neutrophils % 42.3 24.0 - 66.0 % 12/21/2013 8:19 PM T [facility] Lymphocytes % 43.5 22.0 - 61.0 % 12/21/2013 8:19 PM T [facility] Monocytes % 9.9 3.0 - 15.0 % 12/21/2013 8:19 PM T [facility] Eosinophils % 3.3 0.0 - 10.0 % 12/21/2013 8:19 PM T [facility] Basophils % 0.6 % 12/21/2013 8:19 PM T [facility] Immature Granulocytes 0.4 % 12/21/2013 8:19 PM T [facility] Neutrophil Absolute 2.05 x10^9/L 12/21/2013 8:19 PM T [facility] Lymphocytes Absolute 2.11 x10^9/L 12/21/2013 8:19 PM T [facility] Monocytes Absolute 0.48 x10^9/L 12/21/2013 8:19 PM T [facility] Eosinophils Absolute 0.16 x10^9/L 12/21/2013 8:19 PM T [facility] Basophils Absolute 0.03 x10^9/L 12/21/2013 8:19 PM T [facility] Immature Granulocytes Absolute 0.02 x10^9/L 12/21/2013 8:19 PM T [facility] Blood BLOOD SPECIMEN / Unknown Lab Venipuncture / Unknown 12/21/2013 7:25 PM CDT 12/21/2013 7:28 PM CDT Cynthia Mahajan MD LAB - NA TOLOGY ORDERABLES Performing Organization Address City/State/[facility] Co de Phone Number [facility] [address] [place] [address] * URINALYSIS MICROSCOPIC ONLY (12/21/2013 11:54 AM CDT) RBC UA 0-2 0-2, 2-5 # /hpf 12/21/2013 12:47 PM CDT [facility] WBC UA 0-2 0-2, 2-5 # /hpf 12/21/2013 12:47 PM CDT [facility] Bacteria UA None Seen None Seen, Trace 12/21/2013 12:47 PM CDT [facility] Epithelial Cell UA 0-2 0-2, 2-5 12/21/2013 12:47 PM CDT [facility] Urine URINE SPECIMEN OBTAINED BY CLEAN CATCH PROCEDURE / Unknown 12/21/2013 11:54 AM CDT 12/21/2013 12:12 PM CDT Jackie Carrasco MD LAB - URINALYSIS ORD ERABLES [facility] [address] [place] [address] * (ABNORMAL) URINALYSIS ROUTINE AUTO (12/21/2013 11:54 AM CDT) Color UA Yellow Straw, Yellow, Dark Yellow 12/21/2013 12:40 PM CDT [facility] Clarity UA Clear 12/21/2013 12:40 PM CDT [facility] Specific [place]bull UA 1.010 1.005 - 1.030 12/21/2013 12:40 PM T [facility] pH UA 7.0 5.0 - 8.0 pH 12/21/2013 12:40 PM CDT [facility] Protein UA Negative Negative 12/21/2013 12:40 PM CDT [facility] Blood UA 1+(A) Negative 12/21/2013 12:40 PM CDT [facility] Leukocyte UA Negative Negative 12/21/2013 12:40 PM CDT [facility] Nitrite UA Negative Negative 12/21/2013 12:40 PM CDT [facility] Glucose UA Negative Negative 12/21/2013 12:40 PM CDT [facility] Ketone UA Negative Negative 12/21/2013 12:40 PM CDT [facility] Bilirubin UA Negative Negative 12/21/2013 12:40 PM CDT [facility] Urobilinogen UA 0.2 0.1 - 1.0 EU/dL 12/21/2013 12:40 PM T [facility] Urine URINE SPECIMEN OBTAINED BY CLEAN CATCH PROCEDURE / Unknown 12/21/2013 11:54 AM CDT 12/21/2013 12:12 PM CDT Jackie Carrasco MD LAB - URINALYSIS ORD ERABLES Performing Organization Address [facility] Co de Phone Number [facility] [address] [place] [address] * (ABNORMAL) DIFFERENTIAL MANUAL (12/21/2013 8:08 AM CDT) WBC Auto 4.9 4.5 - 14.5 x10^9/L 12/21/2013 9:07 AM T [facility] Neutrophil % Manual 44 24 - 66 % 12/21/2013 9:07 AM T [facility] Lymphocytes % Manual 37 22 - 61 % 12/21/2013 9:07 AM T [facility] Monocytes % Manual 17(H) 3 - 15 % 12/21/2013 9:07 AM T [facility] Eosinophils % Manual 2 0 - 10 % 12/21/2013 9:07 AM [facility] Cells Counted 100 # cells 12/21/2013 9:07 AM T [facility] RBC Morphology Normal 12/21/2013 9:07 AM T [facility] WBC Morph Normal 12/21/2013 9:07 AM T [facility] Blood BLOOD SPECIMEN / Unknown Lab Venipuncture / Unknown 12/21/2013 8:08 AM CDT 12/21/2013 8:19 AM CDT Yanni Bob DO LAB - HEMATOLOGY ORDERABLES Performing Organization Address [facility] Co de Phone Number [facility] [address] [place] [address] * (ABNORMAL) CBC W MANUAL DIFFERENTIAL (12/21/2013 8:08 AM CDT) WBC 4.9 4.5 - 14.5 x10^9/L 12/21/2013 8:27 AM T [facility] RBC 3.86(L) 4.00 - 5.20 x10^12/L 12/21/2013 8:27 AM T [facility] Hemoglobin 10.9(L) 11.5 - 15.5 gm/dL 12/21/2013 8:27 AM T [facility] Hematocrit 31.9(L) 35.0 - 45.0 % 12/21/2013 8:27 AM T [facility] MCV 82.6 77.0 - 95.0 fl 12/21/2013 8:27 AM T [facility] MCH 28.2 25.0 - 33.0 pg 12/21/2013 8:27 AM T [facility] MCHC 34.2 31.0 - 37.0 gm/dL 12/21/2013 8:27 AM T [facility] RDW-CV 12.9 11.5 - 14.0 % 12/21/2013 8:27 AM [facility] MPV 9.6(H) 6.0 - 9.5 fl 12/21/2013 8:27 AM T [facility] Platelet Count 180 100 - 400 x10^9/L 12/21/2013 8:27 AM T [facility] Blood BLOOD SPECIMEN / Unknown Lab Venipuncture / Unknown 12/21/2013 8:08 AM CDT 12/21/2013 8:19 AM CDT Yanni Bob DO LAB - HEMATOLOGY ORDERABLES Performing Organization Address City/[facility]/ZIP Co de Phone Number [facility] [address] [place] [phone] * CK BLOOD (12/21/2013 12:16 AM CDT) CK 49 29 - 168 U/L 12/21/2013 12:54 AM T [facility] Blood BLOOD SPECIMEN / Unknown 12/21/2013 12:16 AM CDT 12/21/2013 12:37 AM CDT Pravin Tran MD LAB - CHEMISTRY ORDE RABLILIA Performing Organization Address City/[facility]/ZIP Co de Phone Number [facility] [address] [place] [phone] * (ABNORMAL) COMPREHENSIVE METABOLIC PANEL (12/21/2013 12:16 AM CDT) [facility] Glucose 93 70 - 105 mg/dL 12/21/2013 12:54 AM [facility] Sodium 139 136 - 145 mmol/L 12/21/2013 12:54 AM [facility] Potassium 4.0 3.5 - 5.1 mmol/L 12/21/2013 12:54 AM [facility] Chloride 107 98 - 107 mmol/L 12/21/2013 12:54 AM [facility] CO2 20 20 - 28 mmol/L 12/21/2013 12:54 AM [facility] Calcium 9.68 9.12 - 10.48 mg/dL 12/21/2013 12:54 AM [facility] Anion Gap 12 5 - 20 mmol/L 12/21/2013 12:54 AM [facility] BUN 12.4 6.7 - 19.6 mg/dL 12/21/2013 12:54 AM [facility] Creatinine 0.59 0.53 - 0.80 mg/dL 12/21/2013 12:54 AM [facility] eGFR by MDRD mL/min/1.7 3m2 12/21/2013 12:54 AM [facility] Comment:eGFR calculations ar e not performed for children under 18 years old. eGFR by MDRD mL/min/1.7 3m2 12/21/2013 12:54 AM [facility] Comment:eGFR calculations ar e not performed for children under 18 years old. Alkaline Phosphatase 269 100 - 320 U/L 12/21/2013 12:54 AM [facility] ALT 17 8 - 65 U/L 12/21/2013 12:54 AM [facility] AST 23 3 - 35 U/L 12/21/2013 12:54 AM [facility] Protein Total 6.5 6.2 - 9.1 gm/dL 12/21/2013 12:54 AM [facility] Albumin 3.9 3.6 - 4.9 gm/dL 12/21/2013 12:54 AM [facility] Bilirubin Total 1.7(H) 0.3 - 1.2 mg/dL 12/21/2013 12:54 AM [facility] Blood BLOOD SPECIMEN / Unknown 12/21/2013 12:16 AM CDT 12/21/2013 12:37 AM CDT Pravin Tran MD LAB - CHEMISTRY [facility] Organization Address City/State/ZIP Co de Phone Number [facility] [address] [place] [address] * (ABNORMAL) CBC W AUTO DIFFERENTIAL (12/21/2013 12:16 AM CDT) WBC 5.4 4.5 - 14.5 x10^9/L 12/21/2013 12:37 AM CDT [facility] RBC 4.18 4.00 - 5.20 x10^12/L 12/21/2013 12:37 AM CDT [facility] Hemoglobin 11.7 11.5 - 15.5 gm/dL 12/21/2013 12:37 AM CDT [facility] Hematocrit 34.3(L) 35.0 - 45.0 % 12/21/2013 12:37 AM CDT [facility] MCV 82.1 77.0 - 95.0 fl 12/21/2013 12:37 AM CDT [facility] MCH 28.0 25.0 - 33.0 pg 12/21/2013 12:37 AM CDT [facility] MCHC 34.1 31.0 - 37.0 gm/dL 12/21/2013 12:37 AM CDT [facility] Platelet Count 200 100 - 400 x10^9/L 12/21/2013 12:37 AM CDT [facility] RDW-CV 12.9 11.5 - 14.0 % 12/21/2013 12:37 AM CDT [facility] MPV 9.3 6.0 - 9.5 fl 12/21/2013 12:37 AM CDT [facility] Neutrophils % 37.9 24.0 - 66.0 % 12/21/2013 12:37 AM CDT [facility] Lymphocytes % 50.4 22.0 - 61.0 % 12/21/2013 12:37 AM CDT [facility] Monocytes % 7.6 3.0 - 15.0 % 12/21/2013 12:37 AM CDT [facility] Eosinophils % 3.7 0.0 - 10.0 % 12/21/2013 12:37 AM CDT [facility] Basophils % 0.4 % 12/21/2013 12:37 AM CDT [facility] Immature Granulocytes 0.0 % 12/21/2013 12:37 AM T [facility] Neutrophil Absolute 2.05 x10^9/L 12/21/2013 12:37 AM T [facility] Lymphocytes Absolute 2.72 x10^9/L 12/21/2013 12:37 AM T [facility] Monocytes Absolute 0.41 x10^9/L 12/21/2013 12:37 AM T [facility] Eosinophils Absolute 0.20 x10^9/L 12/21/2013 12:37 AM T [facility] Basophils Absolute 0.02 x10^9/L 12/21/2013 12:37 AM T [facility] Immature Granulocytes Absolute 0.00 x10^9/L 12/21/2013 12:37 AM T [facility] Blood BLOOD SPECIMEN / Unknown 12/21/2013 12:16 AM CDT 12/21/2013 12:29 AM CDT Pravin Tran MD LAB - HEMATOLOGY ORD ERABLES Performing Organization Address City/State/[facility] Co de Phone Number [facility] [place] [address] * (ABNORMAL) URINALYSIS MICROSCOPIC ONLY (12/21/2013 12:02 AM CDT) RBC UA 5-10(A) 0-2, 2-5 # /hpf 12/21/2013 12:17 AM T [facility] WBC UA 2-5 0-2, 2-5 # /hpf 12/21/2013 12:17 AM T [facility] Bacteria UA Trace None Seen, Trace 12/21/2013 12:17 AM [facility] Epithelial Cell UA 0-2 0-2, 2-5 12/21/2013 12:17 AM T [facility] Mucus UA 1+ 12/21/2013 12:17 AM T [facility] Urine URINE SPECIMEN OBTAINED BY CLEAN CATCH PROCEDURE / Unknown 12/21/2013 12:02 AM CDT 12/21/2013 12:05 AM CDT Pravin Tran MD LAB - URINALYSIS ORD ERABLES Performing Organization Address [facility]/ZIP Co de Phone Number [facility] [address] [place] [address] * (ABNORMAL) URINALYSIS ROUTINE AUTO (12/21/2013 12:02 AM CDT) Color UA Yellow Straw, Yellow, Dark Yellow 12/21/2013 12:09 AM T [facility] Clarity UA Clear 12/21/2013 12:09 AM T [facility] Specific [place] UA >=1.030 1.005 - 1.030 12/21/2013 12:09 AM T [facility] pH UA 6.0 5.0 - 8.0 pH 12/21/2013 12:09 AM T [facility] Protein UA Negative Negative 12/21/2013 12:09 AM T [facility] Blood UA 2+(A) Negative 12/21/2013 12:09 AM T [facility] Leukocyte UA Negative Negative 12/21/2013 12:09 AM T [facility] Nitrite UA Negative Negative 12/21/2013 12:09 AM T [facility] Glucose UA Negative Negative 12/21/2013 12:09 AM T [facility] Ketone UA Negative Negative 12/21/2013 12:09 AM T [facility] Bilirubin UA Negative Negative 12/21/2013 12:09 AM T [facility] Urobilinogen UA 0.2 0.1 - 1.0 EU/dL 12/21/2013 12:09 AM [facility] Urine URINE SPECIMEN OBTAINED BY CLEAN CATCH PROCEDURE / Unknown 12/21/2013 12:02 AM CDT 12/21/2013 12:05 AM T Pravin Tran MD LAB - URINALYSIS ORD ERABLES Performing Organization Address [facility]/ZIP Co de Phone Number [facility] [address] [place] [address] documented in this encounter Visit Diagnoses Diagnosis [...] [id number] documented in this encounter Care Teams Media Analyst Relationship Specialty Start Date End Date Nohemy June MD [address] [place] [address] [place] [phone] PCP - General Family Medicine 12/20/13 03/28/19 documented as of this encounter
--- OUTSIDE RECORDS SUMMARY | 2024-04-04 17:33 | XMS_ITS | Encounter Summary ---
Author Organization [facility] Address [address] [place] [address] Care Team Providers Care Senior Staff Specialized Employment Name Role Phone Nohemy June MD Primary Care Provider [phone] Reason for Visit * Reason Comments Insect bite Encounter Details Date Type Department Care Team (Late st Contact Info) Description 12/23/2013 - 12/23/2013 12:48 PM CDT Emergency ER at [address] [phone] Discharge Disposition: ED Dismiss - Never Arrived [...] st Contact Info) Description 04/09/2024 8:40 AM L D RN Office Visit [facility] - Endocrinology [address] [place] [address], [facility] [place] [address] Hilario Traore MD [address] [place] [address] documented as of this encounter Visit Diagnoses Not on filedocumented in this encounter Care Teams Senior Staff Specialized Employment Relationship Specialty Start Date End Date Nohemy uJne MD [address] [place] [id number] PCP - General Family Medicine 12/20/13 03/28/19 documented as of this encounter
--- OUTSIDE RECORDS SUMMARY | 2024-04-04 17:33 | XMS_ITS | Encounter Summary ---
Author Organization [facility] Address [address] [place] [address] Care Team Providers Care Superintendent Of Generation Name Role Phone Eduardo López PA-C Primary Care Provider Encounter Details Date Type Department Care Team (Late st Contact Info) Description 01/02/2024 8:00 AM CDT Office Visit [facility] - Endocrinology [address], [place] [address] Hilario Traore MD [address] [place] [address] Type 1 diabetes mellitus without [...] Hendrix MD - 01/02/2024 7:54 AM CDT [facility] Endocrinology History & Physical Patient Name: Himanshu Damon PCP: Eduardo López PA-C Date of Service: 01/02/2024 Reason for visit: Type 1 DM HPI: Himanshu Damon is a 18 year old female, with PMH below, who presents to the [facility] endocrine clinic today for T1DM Diabetes was [...] UTI or yeast infection: No 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 Recent Labs Component Name 11/17/23 0856 [...] st Contact Info) Description 04/09/2024 8:40 AM AIR BOATSWAIN Office Visit [facility] - Endocrinology [address] [place] [address] Hilario Traore MD [address] [place] [address] documented as of this encounter Visit Diagnoses Diagnosis Type 1 diabetes mellitus without complication (HCC)- Primary Type I (juvenile type) diabetes mellitus without mention of complication, not stated as uncontrolled documented in this encounter Care Teams Superintendent Of Generation Relationship Specialty Start Date End Date Eduardo López PA-C [address] [place] [address] PCP - General Physician Group Fitness Manager 07/25/23 documented as of this encounter
--- OUTSIDE RECORDS SUMMARY | 2024-04-04 17:33 | XMS_ITS | Encounter Summary ---
Author Organization [facility] Address [address] [place] [address]. [place] [address] [place] [address] Care Team Providers Care Fashion Buyer Name Role Phone None, Provider MD Primary Care Provider Unavaila ble Reason for Visit * Reason Comments Fall Facial Pain Encounter Details Date Type Department Care Team (Late st Contact Info) Description 08/15/2023 4:14 PM CDT - 08/15/2023 5:02 PM CDT Emergency [facility] Emergency Room [address] [place] [address] [id number] Luke Miller MD [address] [place] [id number] Fall; Facial Pain Discharge Disposition: Home [...] * Mouth and dental injuries in adults ([place]) * Contusion Discharge Instructions ([place]) documented in this encounter Medications at Time [...] on the bathtub. She was taken to [facility] where she was treated for hyperglycemia and ultimately discharged. When she fell she injured her nose and the right side of her forehead. She denies headache, nausea or vomiting, amnesia, confusion, numbness or weakness. 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 She was seen and evaluated at [facility] yesterday. Today she c/o facial pain, mainly [...] documented as of this encounter Care Teams Fashion Buyer Relationship Specialty Start Date End Date None, Provider, MD PCP - General UNKNOWN PHYSICIAN SPECIALTY 08/15/23 documented as of this encounter
--- OUTSIDE RECORDS SUMMARY | 2024-04-04 17:33 | XMS_ITS | Encounter Summary ---
Author Organization [facility] Address [address] [place] [address] Care Team Providers Care Annual Giving Manager Name Role Phone Eduardo López PA-C Primary Care Provider [phone] Encounter Details Date Type Department Care Team (Late st Contact Info) Description 11/17/2023 9:00 AM CDT Office Visit [facility] - Endocrinology [address] [place] [address], [place] [address] Meghana White MD [address] [place] [address] [place] [address] Type 1 diabetes mellitus without [...] 9:39 AM CDT Thank you for visiting [facility] Endocrinology. We appreciate your confidence in allowing us to participate in your health care. You may receive a survey about your visit with us today. Making our patients happy is our mission. Please tell us if we made the right impression on you- and how we can serve you better. APPOINTMENTS: [phone] or you can send a Superpro[employer] message. Normal business hours are from 8:00 am to 4:30 pm Monday through Monday. Fax# [phone] REFILL REQUESTS: contact your pharmacy who will reach out to us. If you have changes to your prescription, you will need to contact us directly at [phone] or send your doctor a Superprotonic message. We request that all prescription refills be requested during regular office phone hours. If your prescription requires a prior authorization, it may take several days for us to get approval from [employer] company before we can refill your prescription. Please do not wait until you are completely out before contacting us. MEDICAL EMERGENCY: Please call 911 or go to the nearest Emergency Room. After hours urgent calls that cannot wait until phone lines are open on the next business day are given to the Inside Sales Manager physician risk management consultant. Please call [phone] and identify yourself as a patient in our practice needing to speak to Inside Sales Manager. The fluid pump operator will contact the physician risk management consultant. You can generally expect a return call within 30 minutes. On weekends, physicians are seeing hospitalized patients and there may be a longer wait. Test and laboratory results: Our practice typically reports lab and test results through letters orMyChart. Please allow 10 days from when your tests are completed to receive the results in the mail. Labs performed outside of [facility] facility, [facility] or [facility] may delay the results getting to us. Please contact the lab and request that they are faxed to us at [phone] IF GOING TO [facility] or [facility]- TAKE LAB ORDER WITH YOU or they may turn you away [facility]'s missed appointment policy is: Patients with 3 consecutively missed appointments OR 3 missed appointments in a 12 month period will no longer be seen by Endocrinology. They will be asked to seek consultation outside of [facility]. A missed appointment is defined as: Arriving to a scheduled appointment too late to be seen (Patients who arrive to clinic later than their scheduled appointment time may not be seen) Not showing up or calling 24-48 hours prior to an appointment An appointment cancelled less than 24 hours in advance ADDRESS: [facility], [address] [place] [address], [address]nd [place] [address] Website: [email or web address] for additional information about [facility] and an interactive health encyclopedia. Set your sleep mode end 30 min before you wake up See us back in [facility] clinic for further pump adjustment after data sharing issue resolves documented in this encounter Progress Notes * Meghana White MD - 11/17/2023 9:00 AM CDT [facility] Endocrine Patient Note Date of Service- 11/17/2023 Chief Complaint or Purpose for Referral: T1DM History of Present Illness: Himanshu Damon is a 18 year old female, with PMH below, who presents to the [facility] endocrine clinic today for T1DM (low C peptide, positive PATRICIA) Interval history Using Carina with G6, T connect only available for August data, per [employer] 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 glucose Good at entering carbs Last [...] Glucagon (Baqsimi Two Pack) 3 MG/DOSE POWD Kelley 3 mg into the nose as directed [...] 1 STRIP NEEDED USE INSTRUCTED ReliOn Pen [place] 32G X 4 MM MISC Inject 1 [...] data sharing issues resolve Meghana White MD [facility] division of endocrinology, diabetes and metabolism 11/17/2023 documented in this encounter Plan of Treatment Upcoming Encounters Date Type Department Care Team (Late st Contact Info) Description 04/09/2024 8:40 AM ELECTRICIAN SUPERVISOR AIRPLANE Office Visit [facility] - Endocrinology [address] [place] [address], [place] [address] Hilario Traore MD [address] [place] [address] documented as of this encounter Procedures Procedure Name Priority Date/Time Associated Diagnosis Comments HEMOGLOBIN A1C - POINT OF CARE (AMB) U Routine 11/17/2023 8:56 AM CDT Type 1 diabetes mellitus without complication (HCC) documented in this encounter Results * HEMOGLOBIN A1C - POINT OF CARE (AMB) [facility] (11/17/2023 8:56 AM CDT) Hemoglobin A1c POCT 6.9 % [address] BLOOD SPECIMEN / Unknown 11/17/2023 8:56 AM CDT Meghana White MD LAB - POINT OF CARE ORDERABLES [place] [id number] [facility], [place] [address], [place]UST [phone] documented in this encounter Visit Diagnoses Diagnosis Type 1 diabetes mellitus without complication (HCC)- Primary Type I (juvenile type) diabetes mellitus without mention of complication, not stated as uncontrolled documented in this encounter Care Teams Annual Giving Manager Relationship Specialty Start Date End Date Eduardo López, PABennieC [address] [place] [address] PCP - General Physician Real Estate Subagent 07/25/23 documented as of this encounter
--- OUTSIDE RECORDS SUMMARY | 2024-04-04 17:33 | XMS_ITS | Clinical Summary ---
Author Organization [facility] Address [address] [place] [address]. [place] [address] [place] [address] Care Team Providers Care Wealth Management Manager Name Role Phone Eduardo López Primary Care Provider [phone] Allergies Active Allergy Reactions Criticality Noted Date Comments Cyclobenzaprine Nausea and Vomiting 02/11/2023 Kiwi Fruit Swelling High 07/18/2023 Tongue swells with blisters [place] Flavoring Agent (Non-Screening) Swelling High 07/18/2023 Tongue [...] episode of recurren t major depressive disorder ([facility]) 07/24/2023 Anxiety 07/24/2023 Type 1 diabetes mellitus ([facility]) 07/23 Jaundice 12/25/2013 Overview (07/24/2023): Last Assessment [...] in hgb requiring transfusion. Plan: -Admit to self [facility]m arthur -FLVF D5/HNS @ 75ml/hr -Benadryl PRN itching -Regular diet -H/H q8h -Vitals q8h Encounters Date Type Department Care Team Description 01/04/2024 1:52 PM CDT - 01/04/2024 4:47 PM CDT Emergency [facility] Emergency Room [address] [place] [address] Jess Lockhart MD Back Pain; Hip Pain [...] 4:16 PM Narrative 01/04/2024 4:19 PM CDT [facility] [address] [facility] [place] [address] EXAMINATION: CT ABD+PEL WO CON, 01/04/2024 4:16 [...] Procedure Note Óscar Gomez MD - 01/04/2024 [facility] [address] [place] [address] EXAMINATION: CT ABD+PEL WO CON, 01/04/2024 4:16 [...] TEST NEGATIVE NEGATIVE 01/04/2024 3:31 PM CDT [facility] () [facility] Comment: VERY DILUTE URINE SPECIMENS MAY NOT CONTAIN MILITARY EXCHANGE WIRELESS MANAGER LEVELS OF HCG. IF IS STILL SUSPECTED, A SERUM HCG TEST IS RECOMMENDED. URINE SPECIMEN FROM URETHRA / Unknown 01/04/2024 3:16 PM CDT Jess Lockhart MD URINE ORDERABLES Final Result [facility] [address] [place] [address], [place] [phone] * Urinalysis, Auto, Complete (01/04/2024 3:16 PM CDT) COLOR (U) YELLOW 01/04/2024 3:43 PM CDT [facility] TRANSPARENCY CLEAR 01/04/2024 3:43 PM CDT [facility] SPECIFIC GRAVITY (U) 1.020 1.000 - 1.030 01/04/2024 3:43 PM CDT [facility] U PH 7.0 5.0 - 9.0 01/04/2024 3:43 PM CDT [facility] LEUKOCYTES (U) NEGATIVE NEGATIVE 01/04/2024 3:43 PM CDT [facility] NITRITES NEGATIVE NEGATIVE 01/04/2024 3:43 PM CDT [facility] PROTEIN RANDOM (U) NEGATIVE NEGATIVE 01/04/2024 3:43 PM CDT [facility] GLUCOSE (U) NEGATIVE NEGATIVE 01/04/2024 3:43 PM CDT [facility] KETONES MG/DL (U) NEGATIVE NEGATIVE 01/04/2024 3:43 PM CDT [facility] BILIRUBIN (U) NEGATIVE NEGATIVE 01/04/2024 3:43 PM CDT [facility] BLOOD (U) NEGATIVE NEGATIVE 01/04/2024 3:43 PM CDT [facility] WBC/HPF NONE SEEN 0 - 5 /HPF 01/04/2024 3:43 PM CDT [facility] RBC/HPF NONE SEEN 0 - 5 /HPF 01/04/2024 3:43 PM CDT [facility] EPI/HPF FEW /HPF 01/04/2024 3:43 PM CDT [facility] URINE SPECIMEN OBTAINED BY CLEAN CATCH PROCEDURE / Unknown 01/04/2024 3:16 PM CDT us Jess Lockhart MD URINE ORDERABLES Final Result [facility] [address] [place] [address], [place] [phone] * (ABNORMAL) BASIC METABOLIC PANEL (01/04/2024 3:13 PM CDT) GLUCOSE 132(H) 70 - 99 MG/DL 01/04/2024 3:45 PM CDT [facility] BUN 11 7 - 18 MG/DL 01/04/2024 3:45 PM CDT [facility] CREATININE S/P/B 0.57 0.55 - 1.02 MG/DL 01/04/2024 3:45 PM CDT [facility] SODIUM S/P/B 139 136 - 145 MMOL/L 01/04/2024 3:45 PM CDT [facility] POTASSIUM S/P/B 4.0 3.5 - 5.1 MMOL/L 01/04/2024 3:45 PM CDT [facility] CHLORIDE S/P/B 102 100 - 108 MMOL/L 01/04/2024 3:45 PM CDT [facility] CO2 26.3 21 - 32 MMOL/L 01/04/2024 3:45 PM CDT [facility] CALCIUM S/P/B 9.7 8.5 - 10.1 MG/DL 01/04/2024 3:45 PM CDT [facility] ANION GAP 10.7 5 - 15 MMOL/L 01/04/2024 3:45 PM CDT [facility] BUN CREATININE RATIO 19.3 6 - 26 01/04/2024 3:45 PM CDT [facility] GFR ESTIMATE >90 >90 ML/MIN/1.7 3 M2 01/04/2024 3:45 PM CDT [facility] Comment: NOTE: eGFR is not calculated for patients <18 years of age. This is an estimated GFR calculation using the new CKD EPI creatinine equation without race and so does not require a correction factor for race. This estimated GFR should not be used for calculating drug doses. 01/04/2024 3:13 PM CDT Jess Lockhart MD LABORATORY Final Result [facility] [address] [place] [address], * (ABNORMAL) CBC W/DIFF AUTOMATED (01/04/2024 3:13 PM CDT) WBC 10.14 4.4 - 11.0 x10'3/uL 01/04/2024 3:19 PM CDT [facility] RBC 4.65 4.50 - 5.10 x10'6/uL 01/04/2024 3:19 PM CDT [facility] HGB 14.3 12.3 - 15.3 G/DL 01/04/2024 3:19 PM CDT [facility] HCT 42.8 35.9 - 44.6 % 01/04/2024 3:19 PM CDT [facility] MCV 92.0 80.0 - 96.0 FL 01/04/2024 3:19 PM CDT [facility] MCH 30.8 25.3 - 30.9 PG 01/04/2024 3:19 PM CDT [facility] MCHC 33.4 31.0 - 34.1 G/DL 01/04/2024 3:19 PM CDT [facility] RDW 13.4 12.4 - 15.1 % 01/04/2024 3:19 PM T [facility] PLT 389(H) 151 - 353 x10'3/uL 01/04/2024 3:19 PM CDT [facility] MPV 8.8(L) 9.6 - 12.0 FL 01/04/2024 3:19 PM T [facility] RBC MORPHOLOGY NORMAL 01/04/2024 3:19 PM T [facility] PLT MORPH. NORMAL 01/04/2024 3:19 PM T [facility] WBC MORPHOLOGY NORMAL 01/04/2024 3:19 PM T [facility] LYMPHOCYTES % 18.5 15.8 - 45.0 % 01/04/2024 3:19 PM T [facility] NEUTROPHILS % 74.8(H) 42.1 - 71.9 % 01/04/2024 3:19 PM T [facility] MONOCYTES % 5.7 5.7 - 12.5 % 01/04/2024 3:19 PM T [facility] EOSINOPHILS 0.3 0.0 - 5.6 % 01/04/2024 3:19 PM T [facility] BASOPHILS 0.4 0.0 - 1.3 % 01/04/2024 3:19 PM T [facility] ABS. NEUTROPHILS 7.58(H) 1.40 - 6.00 x10'3/uL 01/04/2024 3:19 PM T [facility] IMMATURE GRANS % 0.3 0.0 - 0.5 % 01/04/2024 3:19 PM CDT [facility] ABS. LYMPHOCYTES 1.88 0.80 - 4.70 x10'3/uL 01/04/2024 3:19 PM CDT [facility] 01/04/2024 3:13 PM CDT Jess Lockhart MD LABORATORY Final Result [facility] [address] [place] [address], * OUTSIDE LAB (07/10/2023) HGB A1C 13.7 % [facility] ONBASE 07/10/2023 us Doc [facility] Scanned SCANNING Final Resu lt Performing Organization Address City/[facility]/ZIP Co de Phone Number [facility] ONBASE from Last 3 Months or Most Recently Relevant to Health Maintenance Insurance [employer] Care Teams Wealth Management Manager Relationship Specialty Start Date End Date Eduardo Ló[place] [address] [place] [address] PCP - General Physician Wire Weaver Cloth Medical 09/11/23
--- OUTSIDE RECORDS SUMMARY | 2024-04-04 17:33 | XMS_ITS | Encounter Summary ---
Author Organization [facility] Address [address] [place] [address] Care Team Providers Care Pecan Picker Name Role Phone Marcella Jones MD Primary Care Provider Encounter Details Date Type Department Care Team (Late st Contact Info) Description 04/04/2019 1:10 PM [employer] - 04/04/2019 11:59 PM [facility] Hospital Encounter [facility] Pediatrics - Radiology [address] [place] [address] Mark Cardona MD [address] [address] Discharge Disposition: Home or Self [...] st Contact Info) Description 04/09/2024 8:40 AM [employer] Office Visit [facility] - Endocrinology [facility] [facility] [place] [address] Hilario Traore MD [address] [place] [address] documented as of this encounter Procedures Procedure Name Priority Date/Time Associated Diagnosis Comments XR KNEE RIGHT 4VW OR MORE Routine 04/04/2019 1:15 PM [employer] Right knee pain, unspecified chronicity documented in this encounter Results * XR KNEE RIGHT 4VW OR MORE (04/04/2019 1:15 PM [employer]) Anatomical Region Laterality Modality Lower Extremity Radiographic Zhane ging 04/04/2019 1:15 PM [employer] Impressions 04/04/2019 1:16 PM [employer] Normal views of the right knee Reading Radiologist: Cameron Lino MD on 04/04/2019 at 1:16 PM Narrative 04/04/2019 1:16 PM [employer] INDICATION: Right knee pain COMPARISON: None available. [...] chronicity documented in this encounter Care Teams Pecan Picker Relationship Specialty Start Date End Date Marcella Jones MD [address] [address] PCP - General Pediatrics 03/29/19 07/24/23 documented as of this encounter
--- OUTSIDE RECORDS SUMMARY | 2024-04-04 17:33 | XMS_ITS | Encounter Summary ---
Author Organization [facility] Address [address] [place] [address]. [place], [place] [address] [place] [address] Care Team Providers Care Combat Information Center Officer Name Role Phone Eduardo López Primary Care Provider [phone] Reason for Referral * Imaging (Emergency) - New Request Specialty Diagnoses / Procedures Referred By Dali t Referred To Contact RADIOLOGY Procedures CT ABD+PEL WO CON Jess Lockhart MD [address] [place] [address] Phone: tel: fax: Referral ID Status Reason Start Date Expiration Date V isits Requested Visits Authorized [id number] New Request 01/04/2024 01/03/2025 1 1 Reason for Visit * Reason Comments Back Pain Hip Pain Encounter Details Date Type Department Care Team (Late st Contact Info) Description 01/04/2024 1:52 PM CDT - 01/04/2024 4:47 PM CDT Emergency [facility] Emergency Room [id number] [place] [phone] Jess Lockhart MD [address] [place] [address] Back Pain; Hip Pain Discharge [...] Everywhere. * Low back pain in adults (Congolese) * Managing acute pain at home (Congolese) documented in this encounter Medications at Time [...] Kiwi Fruit Swelling Tongue swells with blisters Albee Flavor Swelling Tongue swelling and blisters Flexeril [...] Date Anxiety 2020 Depression 2020 Drug abuse ([facility]) 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[facility]) Type 1 diabetes ([facility]) PAST SURGICAL HISTORY: Past Surgical History: Procedure [...] ABD+PEL WO CON Final Result by User, [id number] (01/04 1624) [facility] [address] [place] [address] EXAMINATION: CT ABD+PEL WO CON, 01/04/2024 4:16 [...] also will be given a referral to [facility]. Patient diagnosis is back pain with spasms. [...] by mouth every 4 (four) hours., Starting [facility] 01/04/2024, Eprescribe Class: Eprescribe Pharmacy: [facility] [address] [place] [address] [address] (Ph #: [phone]) naproxen (NAPROSYN) 500 MG tablet Take 1 tablet (500 mg total) by mouth 2 (two) times daily with meals., Starting [facility] 01/04/2024, Eprescribe Class: Eprescribe Pharmacy: [facility] [address] [place] [address] [address] (Ph #: [phone]) Follow-up: [facility] Gay [address] [facility] [id number] In 1 week Jess Lockhart MD 01/05/2024 [...] 4:16 PM Narrative 01/04/2024 4:19 PM CDT [id number] [place] [address] EXAMINATION: CT ABD+PEL WO CON, 01/04/2024 4:16 [...] Procedure Note Óscar Gomez MD - 01/04/2024 [id number] [facility] [place] [address] EXAMINATION: CT ABD+PEL WO CON, 01/04/2024 4:16 [...] TEST NEGATIVE NEGATIVE 01/04/2024 3:31 PM CDT [facility] Comment: VERY DILUTE URINE SPECIMENS MAY NOT CONTAIN CRYPTOLOGIC SUPERVISOR LEVELS OF HCG. IF IS STILL SUSPECTED, A SERUM HCG TEST IS RECOMMENDED. URINE SPECIMEN FROM URETHRA / Unknown 01/04/2024 3:16 PM CDT us Jess Lockhart MD URINE ORDERABLES Final Result [facility] [address] [place] [address], [place] [phone] * Urinalysis, Auto, Complete (01/04/2024 3:16 PM CDT) COLOR (U) YELLOW 01/04/2024 3:43 PM CDT [facility] TRANSPARENCY CLEAR 01/04/2024 3:43 PM CDT [facility] SPECIFIC GRAVITY (U) 1.020 1.000 - 1.030 01/04/2024 3:43 PM CDT [facility] U PH 7.0 5.0 - 9.0 01/04/2024 3:43 PM CDT [facility] LEUKOCYTES (U) NEGATIVE NEGATIVE 01/04/2024 3:43 PM CDT [facility] NITRITES NEGATIVE NEGATIVE 01/04/2024 3:43 PM CDT [facility] PROTEIN RANDOM (U) NEGATIVE NEGATIVE 01/04/2024 3:43 PM CDT [facility] GLUCOSE (U) NEGATIVE NEGATIVE 01/04/2024 3:43 PM CDT [facility] KETONES MG/DL (U) NEGATIVE NEGATIVE 01/04/2024 3:43 PM CDT [facility] BILIRUBIN (U) NEGATIVE NEGATIVE 01/04/2024 3:43 PM CDT [facility] BLOOD (U) NEGATIVE NEGATIVE 01/04/2024 3:43 PM CDT [facility] WBC/HPF NONE SEEN 0 - 5 /HPF 01/04/2024 3:43 PM CDT [facility] RBC/HPF NONE SEEN 0 - 5 /HPF 01/04/2024 3:43 PM CDT [facility] EPI/HPF FEW /HPF 01/04/2024 3:43 PM CDT [facility] URINE SPECIMEN OBTAINED BY CLEAN CATCH PROCEDURE / Unknown 01/04/2024 3:16 PM CDT us Jess Lockhart MD URINE ORDERABLES Final Result [facility] [address] [place] [address], [place] [phone] * (ABNORMAL) BASIC METABOLIC PANEL (01/04/2024 3:13 PM CDT) [facility] GLUCOSE 132(H) 70 - 99 MG/DL 01/04/2024 3:45 PM CDT [facility] BUN 11 7 - 18 MG/DL 01/04/2024 3:45 PM T [facility] CREATININE S/P/B 0.57 0.55 - 1.02 MG/DL 01/04/2024 3:45 PM T [facility] SODIUM S/P/B 139 136 - 145 MMOL/L 01/04/2024 3:45 PM T [facility] POTASSIUM S/P/B 4.0 3.5 - 5.1 MMOL/L 01/04/2024 3:45 PM T [facility] CHLORIDE S/P/B 102 100 - 108 MMOL/L 01/04/2024 3:45 PM T [facility] CO2 26.3 21 - 32 MMOL/L 01/04/2024 3:45 PM T [facility] CALCIUM S/P/B 9.7 8.5 - 10.1 MG/DL 01/04/2024 3:45 PM [facility] ANION GAP 10.7 5 - 15 MMOL/L 01/04/2024 3:45 PM [facility] BUN CREATININE RATIO 19.3 6 - 26 01/04/2024 3:45 PM [facility] GFR ESTIMATE >90 >90 ML/MIN/1.7 3 M2 01/04/2024 3:45 PM [facility] Comment: NOTE: eGFR is not calculated for patients <18 years of age. This is an estimated GFR calculation using the new CKD EPI creatinine equation without race and so does not require a correction factor for race. This estimated GFR should not be used for calculating drug doses. 01/04/2024 3:13 PM CDT us Jess Lockhart MD LABORATORY Final Result [facility] [address] [place] [address], * (ABNORMAL) CBC W/DIFF AUTOMATED (01/04/2024 3:13 PM CDT) WBC 10.14 4.4 - 11.0 x10'3/uL 01/04/2024 3:19 PM CDT [facility] RBC 4.65 4.50 - 5.10 x10'6/uL 01/04/2024 3:19 PM CDT [facility] HGB 14.3 12.3 - 15.3 G/DL 01/04/2024 3:19 PM CDT [facility] HCT 42.8 35.9 - 44.6 % 01/04/2024 3:19 PM CDT [facility] MCV 92.0 80.0 - 96.0 FL 01/04/2024 3:19 PM CDT [facility] MCH 30.8 25.3 - 30.9 PG 01/04/2024 3:19 PM CDT [facility] MCHC 33.4 31.0 - 34.1 G/DL 01/04/2024 3:19 PM CDT [facility] RDW 13.4 12.4 - 15.1 % 01/04/2024 3:19 PM CDT [facility] PLT 389(H) 151 - 353 x10'3/uL 01/04/2024 3:19 PM CDT [facility] MPV 8.8(L) 9.6 - 12.0 FL 01/04/2024 3:19 PM CDT [facility] RBC MORPHOLOGY NORMAL 01/04/2024 3:19 PM CDT [facility] PLT MORPH. NORMAL 01/04/2024 3:19 PM CDT [facility] WBC MORPHOLOGY NORMAL 01/04/2024 3:19 PM CDT [facility] LYMPHOCYTES % 18.5 15.8 - 45.0 % 01/04/2024 3:19 PM CDT [facility] NEUTROPHILS % 74.8(H) 42.1 - 71.9 % 01/04/2024 3:19 PM CDT [facility] MONOCYTES % 5.7 5.7 - 12.5 % 01/04/2024 3:19 PM CDT [facility] EOSINOPHILS 0.3 0.0 - 5.6 % 01/04/2024 3:19 PM CDT [facility] BASOPHILS 0.4 0.0 - 1.3 % 01/04/2024 3:19 PM CDT [facility] ABS. NEUTROPHILS 7.58(H) 1.40 - 6.00 x10'3/uL 01/04/2024 3:19 PM CDT [facility] IMMATURE GRANS % 0.3 0.0 - 0.5 % 01/04/2024 3:19 PM CDT [facility] ABS. LYMPHOCYTES 1.88 0.80 - 4.70 x10'3/uL 01/04/2024 3:19 PM T [facility] 01/04/2024 3:13 PM CDT Jess Lockhart MD LABORATORY Final Result [facility] [address] [place] [address], documented in this encounter Visit Diagnoses Diagnosis Chronic low back pain without sciatica, unspecified back pain laterality- Primary documented in this encounter Additional Health Concerns Assessment Noted Time PHQ-9 Depression Total Score: 14 024 11:38 AM CDT documented as of this encounter Care Teams Combat Information Center Officer Relationship Specialty Start Date End Date Eduardo Ló[place] [address] [place] [address] PCP - General Physician Unit Assembler Medical 09/11/23 documented as of this encounter
--- OUTSIDE RECORDS SUMMARY | 2024-04-04 17:33 | XMS_ITS | Encounter Summary ---
Author Organization [facility] Address [address] [place] [address] Care Team Providers Care Fence Repairman Name Role Phone Eduardo López PA-C Primary Care Provider Encounter Details Date Type Department Care Team (Latest Contact Info) Description 07/25/2023 10:50 AM CDT - 07/25/2023 11:59 PM CDT Hospital Encounter [facility] OP DRAW STATION [address] [place] [address] [phone] Discharge Disposition: Home or Self Care Social [...] Glucagon (Baqsimi Two Pack) 3 MG/DOSE POWD [place] 3 mg into the nose as directed [...] 30 mL 11 07/25/2023 11/02/2023 ReliOn Pen Jasper 32G X 4 MM MISCIndications:Type 1 diabetes mellitus without complication (HCC) Inject 1 Each subcutaneously 4 times daily 200 Each 11 07/25/2023 11/23/2023 documented as of this encounter Plan of Treatment Upcoming Encounters Date Type Department Care Team (Late st Contact Info) Description 04/09/2024 8:40 AM PURCHASING ENGINEER Office Visit [facility] - Endocrinology [address] [place] [address], [place] [phone] Hilario Traore MD [address] [facility] [address] [place] [address] documented as of this encounter [...] - 3.3 ng/mL 07/26/2023 9:33 PM CDT [facility] ([facility]) Comment: INTERPRETIVE INFORMATION: Serum, C-Peptide Reference Interval applies to fasting specimens. To convert to nmol/L, multiply by 0.33 Performed By: [facility] [address] [place] [address] Study Lead: Luis Campoverde MD, PhD CLIA Number: [id number] Blood BLOOD SPECIMEN / Unknown Lab Venipuncture / Unknown 07/25/2023 11:52 AM CDT 07/25/2023 12:11 PM CDT Meghana White MD LAB - CHEMISTRY ORDE SELIN Performing Organization Address City/State/[facility] de Phone Number [facility] [employer] ([facility]) [address] * (ABNORMAL) GLUTAMIC ACID DECARBOXYLASE (PATRICIA) ANTIBODY (07/25/2023 11:52 AM CDT) Glutamic Acid Decarboxylase Antibody 51.9(H) 0.0 - 5.0 IU/mL 07/27/2023 8:03 AM CDT ON LICENSE OF [facility] ([facility]) Comment: INTERPRETIVE INFORMATION: ??Glutamic Acid Decarboxylase Antibody A value greater than 5.0 IU/mL is considered positive for Glutamic Acid Decarboxylase Antibody (PATRICIA Ab). This assay is intended for the semi-quantitative determination of the PATRICIA Ab in human serum. Results should be interpreted within the context of clinical symptoms. Performed By: [facility] [employer] [address] [place] [address] Study Lead: Luis Campoverde MD, PhD CLIA Number: [id number] Blood BLOOD SPECIMEN / Unknown Lab Venipuncture / Unknown 07/25/2023 11:52 AM CDT 07/25/2023 12:11 PM CDT Meghana White MD LAB - SEROLOGY ORDER ASIM Performing Organization Address [facility] de Phone Number [facility]) [address] * (ABNORMAL) LIPID PROFILE (07/25/2023 11:52 AM CDT) Cholesterol Total 250(H) <200 mg/dL 07/25/2023 12:46 PM CDT [facility] HDL 106 >40 mg/dL 07/25/2023 12:46 PM CDT [facility] Comment: ATP III Classification of HDL Cholesterol: ? <40 mg/dL: ??Considered a major risk factor. ? >60 mg/dL: ??Considered a negative risk factor. ? LDL Calculated 133(H) <100 mg/dL 07/25/2023 12:46 PM CDT [facility] Comment: ATP III Classification of LDL Cholesterol: ?<100 mg/dL: ??Optimal ? 100 - 129 mg/dL: ??Near Optimal/Above Optimal ? 130 - 159 mg/dL: ??Borderline High ? 160 - 189 mg/dL: ??High ?>190 mg/dL: ??Very High ? Triglycerides 53 <150 mg/dL 07/25/2023 12:46 PM [facility] Comment: ATP III Classification of Triglycerides: ?<150 mg/dL: ??Normal ? 150 - 199 mg/dL: ??Borderline High ? 200 - 400 mg/dL: ??High ?>500 mg/dL: ??Very High Blood BLOOD SPECIMEN / Unknown Lab Venipuncture / Unknown 07/25/2023 11:52 AM CDT 07/25/2023 12:13 PM CDT Meghana White MD LAB - CHEMISTRY ORDE SELIN [facility] [address] [place] [phone], [facility] [phone] * MICROALB/CREAT RATIO URINE RANDOM PANEL (07/25/2023 11:52 AM CDT) Albumin Random Urine <5.0 Not Established ug/mL 07/25/2023 12:44 PM [facility] Creatinine Urine 56.43 Not Established mg/dL 07/25/2023 12:44 PM [facility] Urine Albumin/Creati nine Ratio <9 <30 mg/g 07/25/2023 12:44 PM [facility] Albumin/Creati nine Ratio Urine See Comment <30 mg/g 07/25/2023 12:44 PM [facility] Comment:Unable to calculate the Urine Albumin/Creatinine Ratio due to one or more analyte concentration(s) being outside the measuring limits of the instrument. Urine URINE SPECIMEN OBTAINED BY CLEAN CATCH PROCEDURE / Unknown Collection / Unknown 07/25/2023 11:52 AM CDT 07/25/2023 12:14 PM CDT Meghana White MD LAB - URINE CHEMISTR Y ORDERABLES Performing Organization Address City/[facility]/ZIP Co de Phone Number [address] [address], [facility] [phone] * TSH (07/25/2023 11:52 AM CDT) Pathologist [facility] TSH 0.760 0.350 - 4.940 uIU/mL 07/25/2023 1:04 PM [facility] Blood BLOOD SPECIMEN / Unknown Lab Venipuncture / Unknown 07/25/2023 11:52 AM CDT 07/25/2023 12:13 PM CDT Meghana White MD LAB - CHEMISTRY ORDE RABLES Performing Organization Address [facility]/ZIP Co de Phone Number [address] [address], [facility] [phone] * (ABNORMAL) COMPREHENSIVE METABOLIC PANEL (07/25/2023 11:52 AM CDT) [facility] BUN 20 7 - 26 mg/dL 07/25/2023 12:46 PM [facility] Creatinine 0.48(L) 0.56 - 0.96 mg/dL 07/25/2023 12:46 PM [facility] Sodium 140 136 - 145 mmol/L 07/25/2023 12:46 PM [facility] Potassium 3.8 3.5 - 4.5 mmol/L 07/25/2023 12:46 PM [facility] Chloride 105 98 - 107 mmol/L 07/25/2023 12:46 PM [facility] CO2 27 22 - 29 mmol/L 07/25/2023 12:46 PM [facility] Glucose 106 70 - 115 mg/dL 07/25/2023 12:46 PM [facility] Calcium 9.3 8.4 - 10.2 mg/dL 07/25/2023 12:46 PM [facility] Protein Total 7.0 6.0 - 8.3 g/dL 07/25/2023 12:46 PM [facility] Albumin 3.8 3.4 - 5.0 g/dL 07/25/2023 12:46 PM [facility] Bilirubin Total 0.4 0.2 - 1.2 mg/dL 07/25/2023 12:46 PM [facility] Alkaline Phosphatase 112 40 - 150 U/L 07/25/2023 12:46 PM [facility] ALT 47 5 - 55 U/L 07/25/2023 12:46 PM [facility] AST 22 5 - 34 U/L 07/25/2023 12:46 PM [facility] Anion Gap 8 6 - 16 07/25/2023 12:46 PM [facility] BUN/Creatinine Ratio 42(H) 7 - 23 07/25/2023 12:46 PM [facility] Osmolality Calculated 293 275 - 295 mOsm/kg 07/25/2023 12:46 PM [facility] Albumin/Globulin Ratio 1.2 1.1 - 2.3 07/25/2023 12:46 PM [facility] eGFR by CKD-EPI >90 >=90 mL/min/1.7 3 m2 07/25/2023 12:46 PM [facility] Blood BLOOD SPECIMEN / Unknown Lab Venipuncture / Unknown 07/25/2023 11:52 AM CDT 07/25/2023 12:13 PM T Meghana White MD LAB - CHEMISTRY [facility] Organization Address City/State/ZIP Co de Phone Number [facility] [address] [place] [address], [facility] [phone] * (ABNORMAL) CBC W/ DIFFERENTIAL (07/25/2023 11:52 AM CDT) WBC 6.2 4.0 - 10.7 x10E9/L 07/25/2023 12:18 PM [facility] RBC Count 3.87(L) 3.90 - 5.20 x10E12/L 07/25/2023 12:18 PM [facility] Hemoglobin 12.2 11.9 - 15.8 g/dL 07/25/2023 12:18 PM [facility] Hematocrit 37.7 34.8 - 46.1 % 07/25/2023 12:18 PM [facility] MCV 97.4 80.0 - 98.0 fL 07/25/2023 12:18 PM [facility] MCH 31.5 26.7 - 33.6 pg 07/25/2023 12:18 PM [facility] MCHC 32.4 31.7 - 36.3 g/dL 07/25/2023 12:18 PM [facility] RDW-CV 15.2(H) 11.3 - 14.8 % 07/25/2023 12:18 PM [facility] Platelet Count 326 150 - 420 x10E9/L 07/25/2023 12:18 PM [facility] MPV 9.0 7.8 - 11.4 fL 07/25/2023 12:18 PM [facility] Neutrophil % 65.2 41.0 - 74.0 % 07/25/2023 12:18 PM [facility] Lymphocyte % 22.7 17.0 - 47.0 % 07/25/2023 12:18 PM [facility] Monocyte % 9.2 3.0 - 11.0 % 07/25/2023 12:18 PM [facility] Eosinophil % 1.6 0.0 - 7.0 % 07/25/2023 12:18 PM [facility] Basophil % 0.8 0.0 - 1.6 % 07/25/2023 12:18 PM [facility] Immature Granulocytes % 0.5 0.0 - 1.0 % 07/25/2023 12:18 PM [facility] Neutrophil Absolute 4.03 1.60 - 7.50 x10E9/L 07/25/2023 12:18 PM [facility] Lymphocyte Absolute 1.40 1.00 - 4.40 x10E9/L 07/25/2023 12:18 PM [facility] Monocyte Absolute 0.57 0.15 - 1.00 x10E9/L 07/25/2023 12:18 PM CDT [facility] Eosinophil Absolute 0.10 0.00 - 0.60 x10E9/L 07/25/2023 12:18 PM CDT [facility] Basophil Absolute 0.05 0.00 - 0.13 x10E9/L 07/25/2023 12:18 PM CDT [facility] Blood BLOOD SPECIMEN / Unknown Lab Venipuncture / Unknown 07/25/2023 11:52 AM CDT 07/25/2023 12:13 PM CDT Meghana White MD LAB - HEMATOLOGY ORD ERABLES [facility] [address] [place] [phone] [phone] documented in this encounter Visit Diagnoses Diagnosis Type 1 diabetes mellitus without complication (HCC) Type I (juvenile type) diabetes mellitus without mention of complication, not stated as uncontrolled documented in this encounter Care Teams Fence Repairman Relationship Specialty Start Date End Date Eduardo López PA-C [address] [place] [address] PCP - General Physician Brakes Inspector 07/25/23 documented as of this encounter
--- OUTSIDE RECORDS SUMMARY | 2024-04-04 17:33 | XMS_ITS | Encounter Summary ---
Author Organization [facility] Address [address] [place] [address] Care Team Providers Care Console Attendant Name Role Phone Eduardo López PA-C Primary Care Provider Encounter Details Date Type Department Care Team (Late st Contact Info) Description 11/14/2023 Telephone [facility] - Endocrinology [address] [facility], [place] [address] Meghana White MD [address] [place] [address] [place] [address] Social History Tobacco Use Types [...] call Mom Cat. Patient Call Back Number: [phone] documented in this encounter Plan of Treatment Upcoming Encounters Date Type Department Care Team (Late st Contact Info) Description 04/09/2024 8:40 AM RN ACCESS Office Visit [facility] - Endocrinology [facility] [facility], [place] [address] Hilario Traore MD [address] [facility] [address] [place] [phone] documented as of this encounter Visit Diagnoses Not on filedocumented in this encounter Care Teams Console Attendant Relationship Specialty Start Date End Date Eduardo López PA-C [address] [place] [address] PCP - General Physician Guide Rail Cleaner 07/25/23 documented as of this encounter
--- OUTSIDE RECORDS SUMMARY | 2024-04-04 17:33 | XMS_ITS | Clinical Summary ---
Author Organization [facility] Address [address] [facility] [place] [address] Care Team Providers Care Alodize Machine Operator Name Role Phone Eduardo López PA-C Primary Care Provider [phone] Source Comments [facility],non-owned Affiliates and Associated Physician Practices is amultiple site organization consisting of ambulatory clinics and hospital sitesin [place], [place], [place] and [place]. This disclosure is being madepursuant to the Care Everywhere program and may not contain all information available regarding this patient. Last updated 17.[facility] Allergies Active Allergy Reactions Criticality Noted Date [...] Glucagon (Baqsimi Two Pack) 3 MG/DOSE POWD [place] 3 mg into the nose as directed [...] requiring transfusion. Plan: -Admit to purple teamGm -VTVF D5/HNS @ 75ml/hr -Benadryl PRN itching -Regular [...] st Contact Info) Description 04/09/2024 8:40 AM NURSE LIAISON Office Visit [facility] - Endocrinology [address] [facility], [place] [phone] Hilario Traore MD [address] [facility] [address] [place] [phone] Health Maintenance Due Date Last Done Comments [...] MENINGOCOCCAL VACCINE Completed 2019, 015 Care Teams Alodize Machine Operator Relationship Specialty Start Date End Date Eduardo López, PABennieC [address] [place] [address] PCP - General Physician Production Trainer 07/25/23
--- OUTSIDE RECORDS SUMMARY | 2024-04-04 17:33 | XMS_ITS | Encounter Summary ---
Author Organization [facility] Address [address] [facility] [place] [address] Care Team Providers Care Company Laborer Name Role Phone Melany Vieira MD Primary Care Provider [phone] Encounter Details Date Type Department Care Team (Latest Contact Info) Description 07/19/2010 1:20 PM CDT - 07/19/2010 11:59 PM CDT Hospital Encounter [facility] - Dermatology [address] [place] [address] Amina Bergman MD [address] [place] [address] [address] [place] [address] Dermatology Discharge Disposition: Home or Self Care [...] st Contact Info) Description 04/09/2024 8:40 AM REGIONAL TANKER TRUCK DRIVER Office Visit [facility] - Endocrinology [address] [place] [address], [place] [address] Hilario Traore MD [address] [facility] [address] [place] [address] documented as of this encounter Visit Diagnoses Not on filedocumented in this encounter Care Teams Company Laborer Relationship Specialty Start Date End Date Melany Vieira MD [address] [place] [address] PCP - General 07/19/10 12/19/13 documented as of this encounter
--- OUTSIDE RECORDS SUMMARY | 2024-04-04 17:33 | XMS_ITS | Encounter Summary ---
Author Organization [facility] Address [address] [place] [address]. [place], [place] [address] [place] [address] Care Team Providers Care Chief Engineer Drilling And Recovery Name Role Phone Eduardo López Primary Care Provider [phone] Encounter Details Date Type Department Care Team [...] as of this encounter Care Teams Chief Engineer Drilling And Recovery Relationship Specialty Start Date End Date Eduardo Ló[place] [address] [place] [address] PCP - General Physician Room Attendants Medical 09/11/23 documented as of this encounter
--- OUTSIDE RECORDS SUMMARY | 2024-04-04 17:33 | XMS_ITS | Encounter Summary ---
Author Organization [facility] Address [address] [place] [address]. [place], [place] [id number] [place] [id number] Care Team Providers Care Carbon Cutter Name Role Phone Eduardo López Primary Care Provider None, Provider Primary Care Provider Unavaila ble Reason for Visit * Reason Onset Date Comments Medication 08/11/2023 Encounter Details Date Type Department Care Team (Late st Contact Info) Description 08/11/2023 Telephone [facility] [address] [place] [address] Eduardo López [place] [id number] [place] [id number] Medication Social History Tobacco Use Types [...] Pt called I read her message states nib inspector already ordered Dexcom She has appt today for fall and hitting head on tub thinks nose may be FX * Mary Ellen Lee RN - 08/14/2023 8:33 AM CDT Per [place], pt's nib inspector to order the CGM Dexcom. LVM for pt to call office. Please inform her of this when she returns call. * Mary Ellen Lee RN - 08/11/2023 3:55 PM CDT Do you want pt's nib inspector to order this? * Josefina Brooks MA - 08/11/2023 3:50 PM CDT Pt calling stating that she has diabetes and she is getting a new pump either next week or the following week and she was told she is going to need a change to her monitor to a dexcom 6. Any questions call Abdulkadirisyn [phone] documented in this encounter Plan of Treatment Not on file documented as of this encounter Visit Diagnoses Not on filedocumented in this encounter Additional Health Concerns Assessment Noted Time PHQ-9 Depression Total Score: 14 024 11:38 AM CDT documented as of this encounter Care Teams Carbon Cutter Relationship Specialty Start Date End Date Eduardo Ló[place] [address] [place] [address] PCP - General Physician Commercial Esc[employer] Assistant Medical 07/12/23 08/14/23 None, Provider, PCP - General UNKNOWN PHYSICIAN SPECIALTY 08/15/23 09/10/23 documented as of this encounter
--- OUTSIDE RECORDS SUMMARY | 2024-04-04 17:33 | XMS_ITS | Patient Health Summary ---
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 This disclosure is being madepursuant to the Care Everywhere program and may not contain all information available regarding this patient. Last updated 17.[facility] Allergies * Cyclobenzaprine(Nausea and/or Vomiting) * Kiwi Extract(Swelling) -High Criticality * Levan Flavor(Swelling) -High Criticality * Pineapple(Swelling,Unknown) Medications * [...] Continuous Glucose Sensor (FreeStyle Louis 3 Sensor) [facility](Started 07/21/2023) APPLY TO THE BACK OF THE ARM EVERY 14 DAYS * Lantus SoloStar pen(Started 07/25/2023) Inject 35 (thirty five) Units subcutaneously every 24 hours 11 refills by 07/24/2024 * Glucagon (Baqsimi Two Pack) 3 MG/DOSE POWD(Started 07/25/2023) [place] 3 mg into the nose as directed 2 refills by 07/24/2024 * Acetone, Urine, Test (Ketone Test) STRP(Started 07/25/2023) 1 Each by In Vitro route as needed 11 refills by 07/24/2024 * Continuous Glucose Transmitter (Dexcom G6 Transmitter) [facility](Started 08/15/2023) Use 1 Each Every 90 days 3 refills by 08/14/2024 * Continuous Glucose Sensor (Dexcom G6 Sensor) [facility](Started 08/15/2023) Use 1 Each every 10 days [...] included. Hemoglobin A1c POCT 6.9 % [facility] [address] [place] [address] BLOOD SPECIMEN / Unknown 11/17/2023 8:56 AM CDT Meghana White MD LAB - POINT OF CARE ORDERABLES Performing Organization Address [facility]/ZIP Co de Phone Number [facility] Anna [facility] [address] [facility] [place] [address], [facility] [phone] * MICROALB/CREAT RATIO URINE RANDOM PANEL (07/25/2023 11:52 AM CDT) Albumin Random Urine <5.0 Not Established ug/mL 07/25/2023 12:44 PM CDT [facility] Creatinine Urine 56.43 Not Established mg/dL 07/25/2023 12:44 PM CDT [facility] Urine Albumin/Creati nine Ratio <9 <30 mg/g 07/25/2023 12:44 PM CDT [facility] Albumin/Creati nine Ratio Urine See Comment <30 mg/g 07/25/2023 12:44 PM CDT [facility] Comment:Unable to calculate the Urine Albumin/Creatinine Ratio due to one or more analyte concentration(s) being outside the measuring limits of the instrument. Urine URINE SPECIMEN OBTAINED BY CLEAN CATCH PROCEDURE / Unknown Collection / Unknown 07/25/2023 11:52 AM CDT 07/25/2023 12:14 PM CDT Meghana White MD LAB - URINE CHEMISTR Y ORDERABLES Performing Organization Address City/[facility]/ZIP Co de Phone Number [facility] [address] [place] [address], [facility] [phone] * C-PEPTIDE (07/25/2023 11:52 AM CDT) C-Peptide 0.7 0.5 - 3.3 ng/mL 07/26/2023 9:33 PM CDT [facility] ([facility]) Comment: INTERPRETIVE INFORMATION: Serum, C-Peptide Reference Interval applies to fasting specimens. To convert to nmol/L, multiply by 0.33 Performed By: [employer] [address] [place] [address] Healthcare Liaison: Luis Campoverde MD, PhD CLIA Number: [id number] Blood BLOOD SPECIMEN / Unknown Lab Venipuncture / Unknown 07/25/2023 11:52 AM CDT 07/25/2023 12:11 PM CDT Meghana White MD LAB - CHEMISTRY ORDE RABLES Performing Organization Address [facility] Co de Phone Number [facility]) [address] [place] [address] * (ABNORMAL) GLUTAMIC ACID DECARBOXYLASE (PATRICIA) ANTIBODY (07/25/2023 11:52 AM CDT) Pathologist [facility] Glutamic Acid Decarboxylase Antibody 51.9(H) 0.0 - 5.0 IU/mL 07/27/2023 8:03 AM CDT [facility] ([facility]) Comment: INTERPRETIVE INFORMATION: ??Glutamic Acid Decarboxylase Antibody A value greater than 5.0 IU/mL is considered positive for Glutamic Acid Decarboxylase Antibody (PATRICIA Ab). This assay is intended for the semi-quantitative determination of the PATRICIA Ab in human serum. Results should be interpreted within the context of clinical symptoms. Performed By: [place] [address] Healthcare Liaison: Luis Campoverde MD, PhD CLIA Number: [id number] Blood BLOOD SPECIMEN / Unknown Lab Venipuncture / Unknown 07/25/2023 11:52 AM CDT 07/25/2023 12:11 PM CDT Meghana White MD LAB - SEROLOGY ORDER ASIM Performing Organization Address [facility]/ZIP Co de Phone Number [facility]) [address] [place] [address] * (ABNORMAL) CBC W/ DIFFERENTIAL (07/25/2023 11:52 AM CDT) Only the most recent of5 resultswithin the time period is included. Pathologist [facility] WBC 6.2 4.0 - 10.7 x10E9/L 07/25/2023 12:18 PM CDT [facility] RBC Count 3.87(L) 3.90 - 5.20 x10E12/L 07/25/2023 12:18 PM [facility] Hemoglobin 12.2 11.9 - 15.8 g/dL 07/25/2023 12:18 PM [facility] Hematocrit 37.7 34.8 - 46.1 % 07/25/2023 12:18 PM [facility] MCV 97.4 80.0 - 98.0 fL 07/25/2023 12:18 PM [facility] MCH 31.5 26.7 - 33.6 pg 07/25/2023 12:18 PM [facility] MCHC 32.4 31.7 - 36.3 g/dL 07/25/2023 12:18 PM [facility] RDW-CV 15.2(H) 11.3 - 14.8 % 07/25/2023 12:18 PM [facility] Platelet Count 326 150 - 420 x10E9/L 07/25/2023 12:18 PM [facility] MPV 9.0 7.8 - 11.4 fL 07/25/2023 12:18 PM [facility] Neutrophil % 65.2 41.0 - 74.0 % 07/25/2023 12:18 PM [facility] Lymphocyte % 22.7 17.0 - 47.0 % 07/25/2023 12:18 PM [facility] Monocyte % 9.2 3.0 - 11.0 % 07/25/2023 12:18 PM [facility] Eosinophil % 1.6 0.0 - 7.0 % 07/25/2023 12:18 PM [facility] Basophil % 0.8 0.0 - 1.6 % 07/25/2023 12:18 PM [facility] Immature Granulocytes % 0.5 0.0 - 1.0 % 07/25/2023 12:18 PM [facility] Neutrophil Absolute 4.03 1.60 - 7.50 x10E9/L 07/25/2023 12:18 PM [facility] Lymphocyte Absolute 1.40 1.00 - 4.40 x10E9/L 07/25/2023 12:18 PM [facility] Monocyte Absolute 0.57 0.15 - 1.00 x10E9/L 07/25/2023 12:18 PM T [facility] Eosinophil Absolute 0.10 0.00 - 0.60 x10E9/L 07/25/2023 12:18 PM [facility] Basophil Absolute 0.05 0.00 - 0.13 x10E9/L 07/25/2023 12:18 PM [facility] Blood BLOOD SPECIMEN / Unknown Lab Venipuncture / Unknown 07/25/2023 11:52 AM CDT 07/25/2023 12:13 PM CDT Meghana White MD LAB - HEMATOLOGY ORD ERABLES [facility] [address] [place] [address], [facility] [phone] * (ABNORMAL) COMPREHENSIVE METABOLIC PANEL (07/25/2023 11:52 AM CDT) Only the most recent of3 resultswithin the time period is included. BUN 20 7 - 26 mg/dL 07/25/2023 12:46 PM [facility] Creatinine 0.48(L) 0.56 - 0.96 mg/dL 07/25/2023 12:46 PM [facility] Sodium 140 136 - 145 mmol/L 07/25/2023 12:46 PM [facility] Potassium 3.8 3.5 - 4.5 mmol/L 07/25/2023 12:46 PM [facility] Chloride 105 98 - 107 mmol/L 07/25/2023 12:46 PM [facility] CO2 27 22 - 29 mmol/L 07/25/2023 12:46 PM [facility] Glucose 106 70 - 115 mg/dL 07/25/2023 12:46 PM [facility] Calcium 9.3 8.4 - 10.2 mg/dL 07/25/2023 12:46 PM [facility] Protein Total 7.0 6.0 - 8.3 g/dL 07/25/2023 12:46 PM [facility] Albumin 3.8 3.4 - 5.0 g/dL 07/25/2023 12:46 PM [facility] Bilirubin Total 0.4 0.2 - 1.2 mg/dL 07/25/2023 12:46 PM [facility] Alkaline Phosphatase 112 40 - 150 U/L 07/25/2023 12:46 PM [facility] ALT 47 5 - 55 U/L 07/25/2023 12:46 PM [facility] AST 22 5 - 34 U/L 07/25/2023 12:46 PM [facility] Anion Gap 8 6 - 16 07/25/2023 12:46 PM [facility] BUN/Creatinine Ratio 42(H) 7 - 23 07/25/2023 12:46 PM [facility] Osmolality Calculated 293 275 - 295 mOsm/kg 07/25/2023 12:46 PM [facility] Albumin/Globulin Ratio 1.2 1.1 - 2.3 07/25/2023 12:46 PM [facility] eGFR by CKD-EPI >90 >=90 mL/min/1.7 3 m2 07/25/2023 12:46 PM [facility] Blood BLOOD SPECIMEN / Unknown Lab Venipuncture / Unknown 07/25/2023 11:52 AM CDT 07/25/2023 12:13 PM CDT Meghana White MD LAB - CHEMISTRY ORDE SELIN [facility] ([place], [place]) Organization Address City/State/[facility] Co de Phone Number [facility] [address] [place] [phone] [phone] * TSH (07/25/2023 11:52 AM CDT) TSH 0.760 0.350 - 4.940 uIU/mL 07/25/2023 1:04 PM [facility] Blood BLOOD SPECIMEN / Unknown Lab Venipuncture / Unknown 07/25/2023 11:52 AM CDT 07/25/2023 12:13 PM CDT Meghana White MD LAB - CHEMISTRY ORDE RABLES Performing Organization Address [facility]/ZIP Co de Phone Number [facility] [address] [place] [address], [facility] [phone] * (ABNORMAL) LIPID PROFILE (07/25/2023 11:52 AM CDT) Cholesterol Total 250(H) <200 mg/dL 07/25/2023 12:46 PM CDT [facility] HDL 106 >40 mg/dL 07/25/2023 12:46 PM CDT [facility] Comment: ATP III Classification of HDL Cholesterol: ? <40 mg/dL: ??Considered a major risk factor. ? >60 mg/dL: ??Considered a negative risk factor. ? LDL Calculated 133(H) <100 mg/dL 07/25/2023 12:46 PM CDT [facility] Comment: ATP III Classification of LDL Cholesterol: ?<100 mg/dL: ??Optimal ? 100 - 129 mg/dL: ??Near Optimal/Above Optimal ? 130 - 159 mg/dL: ??Borderline High ? 160 - 189 mg/dL: ??High ?>190 mg/dL: ??Very High ? Triglycerides 53 <150 mg/dL 07/25/2023 12:46 PM CDT [facility] Comment: ATP III Classification of Triglycerides: ?<150 mg/dL: ??Normal ? 150 - 199 mg/dL: ??Borderline High ? 200 - 400 mg/dL: ??High ?>500 mg/dL: ??Very High Blood BLOOD SPECIMEN / Unknown Lab Venipuncture / Unknown 07/25/2023 11:52 AM CDT 07/25/2023 12:13 PM CDT Meghana White MD LAB - CHEMISTRY SAMRA SMALLWOOD [facility] [address] [place] [address], [facility] [phone] * GLUCOSE - POINT OF CARE (AMB) SLU (07/25/2023 9:53 AM CDT) Glucose WB/POC 91 70 - 115 mg/dL [facility] [address] [place] [address] Blood BLOOD SPECIMEN / Unknown 07/25/2023 9:53 AM CDT Meghana White MD LAB - POINT OF CARE ORDERABLES Performing Organization Address [facility] Co de Phone Number [facility] [address] [place] [address] [address] [facility] [place] [address], [facility] [phone] * XR KNEE RIGHT 4VW OR MORE (04/04/2019 1:15 PM [facility]) Anatomical Region Laterality Modality Lower Extremity Radiographic Zhane ging 04/04/2019 1:15 PM [facility] Impressions 04/04/2019 1:16 PM [facility] Normal views of the right knee Reading Radiologist: Cameron Lino MD on 04/04/2019 at 1:16 PM Narrative 04/04/2019 1:16 PM [facility] INDICATION: Right knee pain COMPARISON: None available. [...] - 15.5 gm/dL 12/30/2013 6:43 AM CDT [facility] Hematocrit 25.9(L) 35.0 - 45.0 % 12/30/2013 6:43 AM CDT [facility] Blood BLOOD SPECIMEN / Unknown Lab Venipuncture / Unknown 12/30/2013 6:01 AM CDT 12/30/2013 6:14 AM CDT Cynthia Mahajan MD LAB - NA TOLOGY ORDERABLES Performing Organization Address City/State/[facility] Co de Phone Number [facility] [address] [place] [address] * US ABDOMEN COMPLETE (12/28/2013 9:28 AM [...] 70 - 105 mg/dL 12/28/2013 6:01 AM [facility] Sodium 142 136 - 145 mmol/L 12/28/2013 6:01 AM [facility] Potassium 4.1 3.5 - 5.1 mmol/L 12/28/2013 6:01 AM [facility] Chloride 110(H) 98 - 107 mmol/L 12/28/2013 6:01 AM [facility] CO2 23 20 - 28 mmol/L 12/28/2013 6:01 AM [facility] Calcium 9.03(L) 9.12 - 10.48 mg/dL 12/28/2013 6:01 AM [facility] Anion Gap 9 5 - 20 mmol/L 12/28/2013 6:01 AM [facility] BUN 6.8 6.7 - 19.6 mg/dL 12/28/2013 6:01 AM [facility] Creatinine 0.49(L) 0.53 - 0.80 mg/dL 12/28/2013 6:01 AM [facility] eGFR by MDRD mL/min/1. 73m2 12/28/2013 6:01 AM [facility] Comment:eGFR calculations ar e not performed for children under 18 years old. eGFR by MDRD mL/min/1. 73m2 12/28/2013 6:01 AM [facility] Comment:eGFR calculations ar e not performed for children under 18 years old. Blood BLOOD SPECIMEN / Unknown Lab Venipuncture / Unknown 12/28/2013 5:03 AM CDT 12/28/2013 5:18 AM CDT Ignacio Moon MD LAB - CHEMISTRY SAMRA SMALLWOOD [facility] ([place], [place]) Organization Address City/State/ZIP Co de Phone Number [facility] [address] [facility] [place] [address] * BLOOD TYPE VERIFICATION (12/25/2013 5:43 PM CDT) ABO AB 12/25/2013 6:55 PM CDT [facility] Rh Type Positive 12/25/2013 6:55 PM CDT [facility] Miscellaneous samples (specimen) BLOOD SPECIMEN / Unknown 12/25/2013 5:43 PM CDT 12/25/2013 6:50 PM CDT Ignacio Moon MD LAB - BLOOD BANK ORD ERABLES Performing Organization Address [facility] Co de Phone Number [facility] [address] [place] [address] * CROSSMATCH RBC (12/25/2013 5:43 PM CDT) [facility] Unit Donor # [id number] 12/29/2013 3:17 AM CDT [facility] Product Code E0332 12/29/2013 3:17 AM CDT [facility] Unit Description E0332 RBC, IRR, LR, -1 12/29/2013 3:17 AM CDT [facility] ABO Donor Type B 12/29/2013 3:17 AM CDT [facility] Rh Type Unit NEG 12/29/2013 3:17 AM CDT [facility] Crossmatch Interpretation Compatible 12/29/2013 3:17 AM CDT [facility] Unit Status Returned 12/29/2013 3:17 AM CDT [facility] Miscellaneous samples (specimen) BLOOD SPECIMEN / Unknown 12/25/2013 5:43 PM CDT 12/25/2013 5:57 PM CDT Ignacio Moon MD LAB - BLOOD BANK ORD MYOMOBLES Performing Organization Address [facility] Co de Phone Number [facility] [address] [place] [address] * (ABNORMAL) RETIC COUNT (12/25/2013 4:03 PM CDT) Pathologist [facility] Reticulocyte Count 4.81(H) 0.5 - 3.6 % 12/25/2013 5:08 PM CDT [facility] Reticulocyte Absolute 0.1265(H) 0.0424 - 0.0702 x10^6/uL 12/25/2013 5:08 PM CDT [facility] Reticulocyte Immature Fractionated 20.7 8.9 - 24.1 % 12/25/2013 5:08 PM CDT [facility] Hemoglobin Retic 33.5 30.4 - 39.7 pg 12/25/2013 5:08 PM CDT [facility] Blood BLOOD SPECIMEN / Unknown 12/25/2013 4:03 PM CDT 12/25/2013 4:12 PM CDT Ignacio Moon MD LAB - HEMATOLOGY JERRY KEENAN Performing Organization Address [facility]/ZIP Co de Phone Number [facility] [address] [place] [address] * (ABNORMAL) LDH BLOOD (12/25/2013 4:03 PM CDT) LDH 289(H) 140 - 260 U/L 12/25/2013 4:47 PM CDT [facility] Blood BLOOD SPECIMEN / Unknown 12/25/2013 4:03 PM CDT 12/25/2013 4:12 PM CDT Ignacio Moon MD LAB - CHEMISTRY SAMRA SMALLWOOD Performing Organization Address [facility] Co de Phone Number [facility] [address] [place] [phone] * CK BLOOD (12/25/2013 4:03 PM CDT) Only the most recent of2 resultswithin the time period is included. CK 89 29 - 168 U/L 12/25/2013 4:49 PM CDT [facility] Blood BLOOD SPECIMEN / Unknown 12/25/2013 4:03 PM CDT 12/25/2013 4:12 PM CDT Ignacio Moon MD LAB - CHEMISTRY ORDBarb SMALLWOOD Performing Organization Address [facility]/ZIP Co de Phone Number [facility] [address] [place] [phone] * TYPE + SCREEN PANEL (12/24/2013 11:27 PM CDT) ABO AB 12/25/2013 12:17 AM CDT [facility] Rh Type Positive 12/25/2013 12:17 AM CDT [facility] Antibody Screen Negative 12/25/2013 12:17 AM CDT [facility] Miscellaneous samples (specimen) BLOOD SPECIMEN / Unknown 12/24/2013 11:27 PM CDT 12/24/2013 11:31 PM CDT Mera Hoffman MD LAB - BLOOD BAN K ORDERABLES [facility] [address] [place] [address] * (ABNORMAL) URINALYSIS ROUTINE AUTO (12/24/2013 11:26 PM CDT) Only the most recent of3 resultswithin the time period is included. Color UA Yellow Straw, Yellow, Dark Yellow 12/24/2013 11:37 PM T [facility] Clarity UA Clear 12/24/2013 11:37 PM T [facility] Specific [place] UA 1.020 1.005 - 1.030 12/24/2013 11:37 PM T [facility] pH UA 7.5 5.0 - 8.0 pH 12/24/2013 11:37 PM T [facility] Protein UA Negative Negative 12/24/2013 11:37 PM T [facility] Blood UA 1+(A) Negative 12/24/2013 11:37 PM T [facility] Leukocyte UA Negative Negative 12/24/2013 11:37 PM T [facility] Nitrite UA Negative Negative 12/24/2013 11:37 PM T [facility] Glucose UA Negative Negative 12/24/2013 11:37 PM T [facility] Ketone UA Negative Negative 12/24/2013 11:37 PM T [facility] Bilirubin UA Negative Negative 12/24/2013 11:37 PM T [facility] Urobilinogen UA 1.0 0.1 - 1.0 EU/dL 12/24/2013 11:37 PM T [facility] Urine Microscopy Urine microscopy to follow 12/24/2013 11:37 PM CDT [facility] Urine URINE SPECIMEN OBTAINED BY CLEAN CATCH PROCEDURE / Unknown 12/24/2013 11:26 PM CDT 12/24/2013 11:31 PM CDT Mera Hoffman MD LAB - URINALYSI S ORDERABLES Performing Organization Address City/[facility] Co de Phone Number [facility] [address] [place] [address] * (ABNORMAL) URINALYSIS MICROSCOPIC ONLY (12/24/2013 11:26 PM CDT) Only the most recent of3 resultswithin the time period is included. RBC UA 2-5 0-2, 2-5 # /hpf 12/24/2013 11:45 PM CDT [facility] WBC UA 0-2 0-2, 2-5 # /hpf 12/24/2013 11:45 PM T [facility] Bacteria UA 1+(A) None Seen, Trace 12/24/2013 11:45 PM T [facility] Epithelial Cell UA 0-2 0-2, 2-5 12/24/2013 11:45 PM T [facility] Mucus UA 2+ 12/24/2013 11:45 PM T [facility] Amorphous Phosphate Crystals 1+(A) None Seen 12/24/2013 11:45 PM T [facility] Urine URINE SPECIMEN OBTAINED BY CLEAN CATCH PROCEDURE / Unknown 12/24/2013 11:26 PM CDT 12/24/2013 11:31 PM CDT Mera Hoffman MD LAB - URINALYSI S ORDERABLES Performing Organization Address City/[facility]/ZIP Co de Phone Number [facility] [address] [place] [address] * BILIRUBIN DIRECT (12/24/2013 9:33 PM CDT) Bilirubin Direct 0.40 0.11 - 0.43 mg/dL 12/24/2013 9:56 PM T [facility] Blood BLOOD SPECIMEN / Unknown Lab Venipuncture / Unknown 12/24/2013 9:33 PM CDT 12/24/2013 9:43 PM CDT Mera Hoffman MD LAB - CHEMISTRY ORDERABLES Performing Organization Address City/[facility]/ZIP Co de Phone Number [facility] [address] [place] [address] * (ABNORMAL) CBC W MANUAL DIFFERENTIAL (12/21/2013 8:08 AM CDT) WBC 4.9 4.5 - 14.5 x10^9/L 12/21/2013 8:27 AM CDT [facility] RBC 3.86(L) 4.00 - 5.20 x10^12/L 12/21/2013 8:27 AM T [facility] Hemoglobin 10.9(L) 11.5 - 15.5 gm/dL 12/21/2013 8:27 AM [facility] Hematocrit 31.9(L) 35.0 - 45.0 % 12/21/2013 8:27 AM T [facility] MCV 82.6 77.0 - 95.0 fl 12/21/2013 8:27 AM T [facility] MCH 28.2 25.0 - 33.0 pg 12/21/2013 8:27 AM T [facility] MCHC 34.2 31.0 - 37.0 gm/dL 12/21/2013 8:27 AM [facility] RDW-CV 12.9 11.5 - 14.0 % 12/21/2013 8:27 AM [facility] MPV 9.6(H) 6.0 - 9.5 fl 12/21/2013 8:27 AM [facility] Platelet Count 180 100 - 400 x10^9/L 12/21/2013 8:27 AM T [facility] Blood BLOOD SPECIMEN / Unknown Lab Venipuncture / Unknown 12/21/2013 8:08 AM CDT 12/21/2013 8:19 AM CDT Yannirenato Bob DO LAB - HEMATOLOGY ORDERABLES Performing Organization Address City/[facility]/ZIP Co de Phone Number [facility] [address] [place] [address] * (ABNORMAL) DIFFERENTIAL MANUAL (12/21/2013 8:08 AM CDT) WBC Auto 4.9 4.5 - 14.5 x10^9/L 12/21/2013 9:07 AM CDT [facility] Neutrophil % Manual 44 24 - 66 % 12/21/2013 9:07 AM CDT [facility] Lymphocytes % Manual 37 22 - 61 % 12/21/2013 9:07 AM CDT [facility] Monocytes % Manual 17(H) 3 - 15 % 12/21/2013 9:07 AM CDT [facility] Eosinophils % Manual 2 0 - 10 % 12/21/2013 9:07 AM T [facility] Cells Counted 100 # cells 12/21/2013 9:07 AM T [facility] RBC Morphology Normal 12/21/2013 9:07 AM T [facility] WBC Morph Normal 12/21/2013 9:07 AM CDT [facility] Blood BLOOD SPECIMEN / Unknown Lab Venipuncture / Unknown 12/21/2013 8:08 AM CDT 12/21/2013 8:19 AM CDT Yanni Shaye Bob DO LAB - HEMATOLOGY ORDERABLES Performing Organization Address City/[facility]/ZIP Co de Phone Number [facility] [address] [place] [address] * CULTURE STREP GROUP A (12/19/2013 4:28 PM CDT) Culture Beta Strep No Growth of Groups A, C or G Beta Streptococc us. [facility] Throat swab (specimen) ENTIRE THROAT (SURFACE REGION OF NECK) / Unknown 12/19/2013 4:28 PM CDT 12/19/2013 10:04 PM CDT Narrative [facility] - 12/21/2013 8:29 AM CDT ReeseSpecimen#[id number] Reese Loc/Rm/Bed: ED// Historical Provider LAB - MICROBIOLOG Y ORDERABLES [address] [phone] Care Teams Linux Kernel Engineer Relationship Specialty Start Date End Date Eduardo López PA-C [id number] [place] [address] PCP - General Physician Caser Up 07/25/23
--- OUTSIDE RECORDS SUMMARY | 2024-04-04 17:33 | XMS_ITS | Encounter Summary ---
Author Organization [facility] Address [address] [place] [address] Care Team Providers Care Senior Commissions Analyst Name Role Phone Nohemy June MD Primary Care Provider [phone] Reason for Visit * Reason Comments Jaundice [...] Expiration Date Visits Re quested Visits Authorized [id number] Closed 1 1 Encounter Details Date Type Department Care Team (Latest Contact Info) Description 12/24/2013 7:21 PM CDT - 12/30/2013 9:29 AM CDT Hospital Encounter CG [address] [place] [address] Sal Joyner MD [address] [place] [address] Lexy Worrell MD [address] [place] [address] Mark Banks MD [address] [place] [address] Medical Inpatient Discharge Disposition: Home or Self [...] 12/25/2013 12: 35 AM CDT Growth Chart: [facility] (Girls, 2- 20 Years) documented in this [...] Comments Your discharge diagnosis is Acute hemolysis [[id number]] Follow up with Primary Care Provider (PCP) Our records show your Primary Care Provider (PCP) is Nohemy June. Order Specific Question Answer Comments Follow Up Instructions: Follow up with your flask handler in 2-3 weeks. No special diet needed Resume normal home diet as tolerated. Activity as tolerated Rest today, and increase activity level tomorrow as tolerated. When to call Call Naran's Manager Sterile Processing if you have questions or concerns, or [...] Specialty: Family Medicine Relationship: PCP - General [address] [place] [phone] Cynthia Mahajan MD CC: Nohemy June [address] [place] [phone] documented in this encounter Medications at Time [...] 12/30/2013 for further details. Mark Banks MD [phone] * Lexy Worrell MD - 12/29/2013 6:59 [...] Worrell MD * Cynthia Mahajan MD - 12/29/2013 12:27 PM CDT Images [...] - 12/25/2013 6:29 PM CDT Shift Highlights ([id number]): Pt has done well today. H&H decreased [...] use. Please contact the pharmacy department at [phone] if you have any questions or concerns. [...] 1:15 PM CDT CHILDLIFE ASSESSMENT Himanshu Damon [id number] Objective 1. Objective Information - Introduction: Child [...] will be a primary followed by this Drama Therapist.;Provide developmentally appropriate therapeutic activities.;Provide relaxation, distraction and [...] ED. Regular diet. Please see internal audit manager H&P for further details. Linda Ahuja DO [...] morning. See resident's H&P for further details. 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 I have reviewed all pertinent clinical [...] Sal Joyner MD Director, Division of Toxicology [facility] [phone] Access Center call first then can page: [phone] * Sal Joyner MD - 12/26/2013 1:43 [...] I recommended evaluation in the ER at [facility] and she was subsequently admitted. She [...] their efficacy at this point. 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 I have reviewed all pertinent clinical information, including history, physical examand plan. I have reviewed the nurses notes. I have reviewed available labs, ECGs or radiographic studies. I have discussed my toxicologic impression and recommendations with the primary Attending andthe residents caring for this patient. Sal Joyner MD Director, Division of Toxicology [facility] [phone] Access Center call first then can page: [phone] documented in this encounter ED Notes * [...] hours a day, from any computer, through [employer], the online version of our electronic medical record. If you would like to use this service, please call Elsie Jauregui, Connectivity Coordinator, at . We appreciate the opportunity to care for your patients. If you would like additional information, please call the emergency department directly at . Sincerely, Mera Hoffman MD Division of Emergency Medicine [facility] [place] [facility] [place] I DESIGNATED EMERGENCY DEPARTMENT Provider contact with the patient: 12/24/2013 21:00 Himanshu Damon [id number] [facility] History Chief Complaint Patient presents [...] 42.4 24.0-66.0 % Lymph 48.2 22.0-61.0 % [place] 6.4 3.0-15.0 % Eos 1.7 0.0-10.0 % Baso 0.9 Immature Grans 0.4 Neutro Abs 3.22 Lymph Abs 3.66 [place] Abs 0.49 Eosin Abs 0.13 Baso Abs [...] st Contact Info) Description 04/09/2024 8:40 AM BRICKLAYER SUPERVISOR Office Visit [facility] - Endocrinology [address] [facility] [place] [address] Hilario Traore MD [address] [place] [address] documented as of this encounter [...] - 15.5 gm/dL 12/30/2013 6:43 AM CDT [facility] Hematocrit 25.9(L) 35.0 - 45.0 % 12/30/2013 6:43 AM CDT [facility] Blood BLOOD SPECIMEN / Unknown Lab Venipuncture / Unknown 12/30/2013 6:01 AM CDT 12/30/2013 6:14 AM CDT Cynthia Mahajan MD LAB - NA TOLOGY ORDERABLES Performing Organization Address [facility] Co de Phone Number [facility] [address] [place] [phone] * (ABNORMAL) HGB HCT PANEL (12/29/2013 5:12 AM CDT) Hemoglobin 7.9(LL) 11.5 - 15.5 gm/dL 12/29/2013 5:38 AM CDT [facility] Hematocrit 24.4(LL) 35.0 - 45.0 % 12/29/2013 5:38 AM CDT [facility] Blood BLOOD SPECIMEN / Unknown Lab Venipuncture / Unknown 12/29/2013 5:12 AM CDT 12/29/2013 5:25 AM CDT Ignacio Moon MD LAB - HEMATOLOGY ORD REE Performing Organization Address [facility] Co de Phone Number [facility] [address] [place] [phone] * (ABNORMAL) HGB HCT PANEL (12/28/2013 5:03 PM CDT) Hemoglobin 8.1(L) 11.5 - 15.5 gm/dL 12/28/2013 5:30 PM CDT [facility] Hematocrit 24.5(LL) 35.0 - 45.0 % 12/28/2013 5:30 PM CDT [facility] Blood BLOOD SPECIMEN / Unknown Lab Venipuncture / Unknown 12/28/2013 5:03 PM CDT 12/28/2013 5:06 PM CDT Ignacio Moon MD LAB - HEMATOLOGY ORD REE Performing Organization Address City/[facility] Co de Phone Number [facility] [address] [place] [phone] * US ABDOMEN COMPLETE (12/28/2013 9:28 AM [...] 105 mg/dL 12/28/2013 6:01 AM [facility] Sodium 142 136 - 145 mmol/L 12/28/2013 6:01 AM [facility] Potassium 4.1 3.5 - 5.1 mmol/L 12/28/2013 6:01 AM [facility] Chloride 110(H) 98 - 107 mmol/L 12/28/2013 6:01 AM [facility] CO2 23 20 - 28 mmol/L 12/28/2013 6:01 AM [facility] Calcium 9.03(L) 9.12 - 10.48 mg/dL 12/28/2013 6:01 AM [facility] Anion Gap 9 5 - 20 mmol/L 12/28/2013 6:01 AM [facility] BUN 6.8 6.7 - 19.6 mg/dL 12/28/2013 6:01 AM T [facility] Creatinine 0.49(L) 0.53 - 0.80 mg/dL 12/28/2013 6:01 AM T [facility] eGFR by MDRD mL/min/1. 73m2 12/28/2013 6:01 AM T [facility] Comment:eGFR calculations ar e not performed for children under 18 years old. eGFR by MDRD mL/min/1. 73m2 12/28/2013 6:01 AM T [facility] Comment:eGFR calculations ar e not performed for children under 18 years old. Blood BLOOD SPECIMEN / Unknown Lab Venipuncture / Unknown 12/28/2013 5:03 AM CDT 12/28/2013 5:18 AM CDT Ignacio Moon MD LAB - CHEMISTRY SAMRA SMALLWOOD Performing Organization Address City/[facility] de Phone Number [facility] [address] [place] [phone] * (ABNORMAL) HGB HCT PANEL (12/28/2013 5:03 AM CDT) Hemoglobin 7.7(LL) 11.5 - 15.5 gm/dL 12/28/2013 5:33 AM T [facility] Hematocrit 23.3(LL) 35.0 - 45.0 % 12/28/2013 5:33 AM T [facility] Blood BLOOD SPECIMEN / Unknown Lab Venipuncture / Unknown 12/28/2013 5:03 AM CDT 12/28/2013 5:18 AM CDT Ignacio Moon MD LAB - HEMATOLOGY ORD ERABAUTISTA [facility] [address] [place] [address] * (ABNORMAL) HGB HCT PANEL (12/27/2013 4:40 PM CDT) Hemoglobin 7.8(LL) 11.5 - 15.5 gm/dL 12/27/2013 5:29 PM CDT [facility] Hematocrit 23.4(LL) 35.0 - 45.0 % 12/27/2013 5:29 PM CDT [facility] Blood BLOOD SPECIMEN / Unknown Lab Venipuncture / Unknown 12/27/2013 4:40 PM CDT 12/27/2013 5:19 PM CDT Ignacio Moon MD LAB - HEMATOLOGY ORD ERABLES [facility] [address] [place] [address] * (ABNORMAL) BASIC METABOLIC PANEL (CALCIUM TOTAL) (12/27/2013 6:24 AM CDT) [facility] Glucose 112(H) 70 - 105 mg/dL 12/27/2013 7:24 AM T [facility] Sodium 141 136 - 145 mmol/L 12/27/2013 7:24 AM [facility] Potassium 4.4 3.5 - 5.1 mmol/L 12/27/2013 7:24 AM [facility] Chloride 110(H) 98 - 107 mmol/L 12/27/2013 7:24 AM T [facility] CO2 23 20 - 28 mmol/L 12/27/2013 7:24 AM [facility] Calcium 9.15 9.12 - 10.48 mg/dL 12/27/2013 7:24 AM [facility] Anion Gap 8 5 - 20 mmol/L 12/27/2013 7:24 AM [facility] BUN 5.7(L) 6.7 - 19.6 mg/dL 12/27/2013 7:24 AM [facility] Creatinine 0.47(L) 0.53 - 0.80 mg/dL 12/27/2013 7:24 AM [facility] eGFR by MDRD mL/min/1. 73m2 12/27/2013 7:24 AM T [facility] Comment:eGFR calculations ar e not performed for children under 18 years old. eGFR by MDRD mL/min/1. 73m2 12/27/2013 7:24 AM [facility] Comment:eGFR calculations ar e not performed for children under 18 years old. Blood BLOOD SPECIMEN / Unknown Lab Venipuncture / Unknown 12/27/2013 6:24 AM CDT 12/27/2013 6:50 AM CDT Ignacio Moon MD LAB - CHEMISTRY SAMRA SMALLWOOD Performing Organization Address [facility]/ZIP Co de Phone Number [facility] [address] [place] [phone] * (ABNORMAL) HGB HCT PANEL (12/27/2013 6:24 AM CDT) Hemoglobin 7.5(LL) 11.5 - 15.5 gm/dL 12/27/2013 7:58 AM CDT [facility] Hematocrit 22.6(LL) 35.0 - 45.0 % 12/27/2013 7:58 AM CDT [facility] Blood BLOOD SPECIMEN / Unknown Lab Venipuncture / Unknown 12/27/2013 6:24 AM CDT 12/27/2013 6:50 AM CDT Ignacio Moon MD LAB - HEMATOLOGY ORD REE Performing Organization Address [facility] de Phone Number [facility] [address] [place] [address] * (ABNORMAL) HGB HCT PANEL (12/26/2013 4:25 PM CDT) Hemoglobin 7.8(LL) 11.5 - 15.5 gm/dL 12/26/2013 4:57 PM CDT [facility] Hematocrit 22.8(LL) 35.0 - 45.0 % 12/26/2013 4:57 PM CDT [facility] Blood BLOOD SPECIMEN / Unknown Lab Venipuncture / Unknown 12/26/2013 4:25 PM CDT 12/26/2013 4:30 PM CDT Ignacio Moon MD LAB - HEMATOLOGY ORD REE Performing Organization Address City/[facility] Co de Phone Number [facility] [address] [place] [phone] * (ABNORMAL) BASIC METABOLIC PANEL (CALCIUM TOTAL) (12/26/2013 5:35 AM CDT) Glucose 121(H) 70 - 105 mg/dL 12/26/2013 6:12 AM CDT [facility] Sodium 141 136 - 145 mmol/L 12/26/2013 6:12 AM [facility] Potassium 4.5 3.5 - 5.1 mmol/L 12/26/2013 6:12 AM [facility] Chloride 111(H) 98 - 107 mmol/L 12/26/2013 6:12 AM [facility] CO2 21 20 - 28 mmol/L 12/26/2013 6:12 AM [facility] Calcium 9.45 9.12 - 10.48 mg/dL 12/26/2013 6:12 AM [facility] Anion Gap 9 5 - 20 mmol/L 12/26/2013 6:12 AM [facility] BUN 6.2(L) 6.7 - 19.6 mg/dL 12/26/2013 6:12 AM [facility] Creatinine 0.45(L) 0.53 - 0.80 mg/dL 12/26/2013 6:12 AM [facility] eGFR by MDRD mL/min/1. 73m2 12/26/2013 6:12 AM [facility] Comment:eGFR calculations ar e not performed for children under 18 years old. eGFR by MDRD mL/min/1. 73m2 12/26/2013 6:12 AM [facility] Comment:eGFR calculations ar e not performed for children under 18 years old. Blood BLOOD SPECIMEN / Unknown Lab Venipuncture / Unknown 12/26/2013 5:35 AM CDT 12/26/2013 5:40 AM T Ignacio Moon MD LAB - CHEMISTRY SAMRA SMALLWOOD [facility] Organization Address City/State/[facility] Co de Phone Number [facility] [address] [place] [address] * (ABNORMAL) HGB HCT PANEL (12/26/2013 5:35 AM CDT) Hemoglobin 7.5(LL) 11.5 - 15.5 gm/dL 12/26/2013 5:54 AM T [facility] Hematocrit 21.9(LL) 35.0 - 45.0 % 12/26/2013 5:54 AM [facility] Blood BLOOD SPECIMEN / Unknown Lab Venipuncture / Unknown 12/26/2013 5:35 AM CDT 12/26/2013 5:42 AM CDT Ignacio Moon MD LAB - HEMATOLOGY ORD ERABLES Performing Organization Address [facility]/ZIP Co de Phone Number [facility] [address] [place] [address] * BLOOD TYPE VERIFICATION (12/25/2013 5:43 PM CDT) ABO AB 12/25/2013 6:55 PM CDT [facility] Rh Type Positive 12/25/2013 6:55 PM CDT [facility] Miscellaneous samples (specimen) BLOOD SPECIMEN / Unknown 12/25/2013 5:43 PM CDT 12/25/2013 6:50 PM CDT Ignacio Moon MD LAB - BLOOD BANK ORD ERABLES Performing Organization Address [facility] de Phone Number [facility] [address] [place] [address] * CROSSMATCH RBC (12/25/2013 5:43 PM CDT) Unit Donor # [id number] 12/29/2013 3:17 AM CDT [facility] Product Code E0332 12/29/2013 3:17 AM CDT [facility] Unit Description E0332 RBC, IRR, LR, -1 12/29/2013 3:17 AM CDT [facility] ABO Donor Type B 12/29/2013 3:17 AM CDT [facility] Rh Type Unit NEG 12/29/2013 3:17 AM CDT [facility] Crossmatch Interpretation Compatible 12/29/2013 3:17 AM CDT [facility] Unit Status Returned 12/29/2013 3:17 AM CDT [facility] Miscellaneous samples (specimen) BLOOD SPECIMEN / Unknown 12/25/2013 5:43 PM CDT 12/25/2013 5:57 PM CDT Ignacio Moon MD LAB - BLOOD BANK ORD ERABLES Performing Organization Address City/[facility]/ZIP Co de Phone Number [facility] [address] [place] [address] * (ABNORMAL) RETIC COUNT (12/25/2013 4:03 PM CDT) [facility] Reticulocyte Count 4.81(H) 0.5 - 3.6 % 12/25/2013 5:08 PM CDT [facility] Reticulocyte Absolute 0.1265(H) 0.0424 - 0.0702 x10^6/uL 12/25/2013 5:08 PM CDT [facility] Reticulocyte Immature Fractionated 20.7 8.9 - 24.1 % 12/25/2013 5:08 PM CDT [facility] Hemoglobin Retic 33.5 30.4 - 39.7 pg 12/25/2013 5:08 PM CDT [facility] Blood BLOOD SPECIMEN / Unknown 12/25/2013 4:03 PM CDT 12/25/2013 4:12 PM CDT Ignacio Moon MD LAB - HEMATOLOGY ORD ERABLES Performing Organization Address [facility]/ZIP Co de Phone Number [facility] [address] [place] [address] * (ABNORMAL) HGB HCT PANEL (12/25/2013 4:03 PM CDT) [facility] Hemoglobin 7.5(LL) 11.5 - 15.5 gm/dL 12/25/2013 5:07 PM CDT [facility] Hematocrit 22.4(LL) 35.0 - 45.0 % 12/25/2013 5:07 PM CDT [facility] Blood BLOOD SPECIMEN / Unknown 12/25/2013 4:03 PM CDT 12/25/2013 4:12 PM CDT Ignacio Moon MD LAB - HEMATOLOGY ORD ERABLES Performing Organization Address City/[facility]/ZIP Co de Phone Number [facility] [address] [place] [address] * (ABNORMAL) LDH BLOOD (12/25/2013 4:03 PM CDT) LDH 289(H) 140 - 260 U/L 12/25/2013 4:47 PM CDT [facility] Blood BLOOD SPECIMEN / Unknown 12/25/2013 4:03 PM CDT 12/25/2013 4:12 PM CDT Ignacio Moon MD LAB - CHEMISTRY ORDBarb SMALLWOOD Performing Organization Address [facility] Co de Phone Number [facility] [address] [place] [address] * CK BLOOD (12/25/2013 4:03 PM CDT) CK 89 29 - 168 U/L 12/25/2013 4:49 PM CDT [facility] Blood BLOOD SPECIMEN / Unknown 12/25/2013 4:03 PM CDT 12/25/2013 4:12 PM CDT Ignacio Moon MD LAB - CHEMISTRY ORDBarb SMALL[place]OD Performing Organization Address [facility] de Phone Number [facility] [address] [place] [address] * (ABNORMAL) BASIC METABOLIC PANEL (CALCIUM TOTAL) (12/25/2013 4:03 PM CDT) Glucose 121(H) 70 - 105 mg/dL 12/25/2013 4:47 PM CDT [facility] Sodium 141 136 - 145 mmol/L 12/25/2013 4:47 PM CDT [facility] Potassium 3.9 3.5 - 5.1 mmol/L 12/25/2013 4:47 PM CDT [facility] Chloride 111(H) 98 - 107 mmol/L 12/25/2013 4:47 PM CDT [facility] CO2 20 20 - 28 mmol/L 12/25/2013 4:47 PM CDT [facility] Calcium 8.83(L) 9.12 - 10.48 mg/dL 12/25/2013 4:47 PM T [facility] Anion Gap 10 5 - 20 mmol/L 12/25/2013 4:47 PM CDT [facility] BUN 7.4 6.7 - 19.6 mg/dL 12/25/2013 4:47 PM CDT [facility] Creatinine 0.45(L) 0.53 - 0.80 mg/dL 12/25/2013 4:47 PM CDT [facility] eGFR by MDRD mL/min/1. 73m2 12/25/2013 4:47 PM T [facility] Comment:eGFR calculations ar e not performed for children under 18 years old. eGFR by MDRD mL/min/1. 73m2 12/25/2013 4:47 PM CDT [facility] Comment:eGFR calculations ar e not performed for children under 18 years old. Blood BLOOD SPECIMEN / Unknown 12/25/2013 4:03 PM CDT 12/25/2013 4:12 PM CDT Ignacio Moon MD LAB - CHEMISTRY SAMRA SMALLWOOD Performing Organization Address [facility] Co de Phone Number [facility] [address] [place] [phone] * (ABNORMAL) HGB HCT PANEL (12/25/2013 6:27 AM CDT) Hemoglobin 8.0(LL) 11.5 - 15.5 gm/dL 12/25/2013 7:03 AM T [facility] Hematocrit 23.3(LL) 35.0 - 45.0 % 12/25/2013 7:03 AM T [facility] Blood BLOOD SPECIMEN / Unknown Lab Venipuncture / Unknown 12/25/2013 6:27 AM CDT 12/25/2013 6:35 AM CDT Mera Hoffman MD LAB - HEMATOLOG Y ORDERABLES Performing Organization Address City/[facility] Co de Phone Number [facility] [address] [place] [address] * TYPE + SCREEN PANEL (12/24/2013 11:27 PM CDT) ABO AB 12/25/2013 12:17 AM CDT [facility] Rh Type Positive 12/25/2013 12:17 AM CDT [facility] Antibody Screen Negative 12/25/2013 12:17 AM CDT [facility] Miscellaneous samples (specimen) BLOOD SPECIMEN / Unknown 12/24/2013 11:27 PM CDT 12/24/2013 11:31 PM CDT Mera Hoffman MD LAB - BLOOD BAN K ORDERABLES Performing Organization Address [facility] Co de Phone Number [facility] [address] [place] [address] * (ABNORMAL) URINALYSIS MICROSCOPIC ONLY (12/24/2013 11:26 PM CDT) RBC UA 2-5 0-2, 2-5 # /hpf 12/24/2013 11:45 PM CDT [facility] WBC UA 0-2 0-2, 2-5 # /hpf 12/24/2013 11:45 PM CDT [facility] Bacteria UA 1+(A) None Seen, Trace 12/24/2013 11:45 PM CDT [facility] Epithelial Cell UA 0-2 0-2, 2-5 12/24/2013 11:45 PM CDT [facility] Mucus UA 2+ 12/24/2013 11:45 PM CDT [facility] Amorphous Phosphate Crystals 1+(A) None Seen 12/24/2013 11:45 PM CDT [facility] Urine URINE SPECIMEN OBTAINED BY CLEAN CATCH PROCEDURE / Unknown 12/24/2013 11:26 PM CDT 12/24/2013 11:31 PM CDT Mera Hoffman MD LAB - URINALYSI S ORDERABLES Performing Organization Address [facility] Co de Phone Number [facility] [address] [place] [address] * (ABNORMAL) URINALYSIS ROUTINE AUTO (12/24/2013 11:26 PM CDT) Color UA Yellow Straw, Yellow, Dark Yellow 12/24/2013 11:37 PM CDT [facility] Clarity UA Clear 12/24/2013 11:37 PM CDT [facility] Specific [place] UA 1.020 1.005 - 1.030 12/24/2013 11:37 PM CDT [facility] pH UA 7.5 5.0 - 8.0 pH 12/24/2013 11:37 PM CDT [facility] Protein UA Negative Negative 12/24/2013 11:37 PM CDT [facility] Blood UA 1+(A) Negative 12/24/2013 11:37 PM T [facility] Leukocyte UA Negative Negative 12/24/2013 11:37 PM T [facility] Nitrite UA Negative Negative 12/24/2013 11:37 PM T [facility] Glucose UA Negative Negative 12/24/2013 11:37 PM T [facility] Ketone UA Negative Negative 12/24/2013 11:37 PM T [facility] Bilirubin UA Negative Negative 12/24/2013 11:37 PM T [facility] Urobilinogen UA 1.0 0.1 - 1.0 EU/dL 12/24/2013 11:37 PM T [facility] Urine Microscopy Urine microscopy to follow 12/24/2013 11:37 PM T [facility] Urine URINE SPECIMEN OBTAINED BY CLEAN CATCH PROCEDURE / Unknown 12/24/2013 11:26 PM CDT 12/24/2013 11:31 PM CDT Mera Hoffman MD LAB - URINALYSI S ORDERABLES Performing Organization Address City/[facility]/ZIP Co de Phone Number [facility] [address] [place] [address] * BILIRUBIN DIRECT (12/24/2013 9:33 PM CDT) Bilirubin Direct 0.40 0.11 - 0.43 mg/dL 12/24/2013 9:56 PM T [facility] Blood BLOOD SPECIMEN / Unknown Lab Venipuncture / Unknown 12/24/2013 9:33 PM CDT 12/24/2013 9:43 PM CDT Mera Hoffman MD LAB - CHEMISTRY ORDERABLES Performing Organization Address [facility]/ZIP Co de Phone Number [facility] [address] [place] [address] * (ABNORMAL) COMPREHENSIVE METABOLIC PANEL (12/24/2013 9:33 PM CDT) Glucose 108(H) 70 - 105 mg/dL 12/24/2013 10:09 PM CDT [facility] Sodium 138 136 - 145 mmol/L 12/24/2013 10:09 PM [facility] Potassium 4.3 3.5 - 5.1 mmol/L 12/24/2013 10:09 PM [facility] Chloride 106 98 - 107 mmol/L 12/24/2013 10:09 PM [facility] CO2 22 20 - 28 mmol/L 12/24/2013 10:09 PM [facility] Calcium 9.72 9.12 - 10.48 mg/dL 12/24/2013 10:09 PM [facility] Anion Gap 10 5 - 20 mmol/L 12/24/2013 10:09 PM [facility] BUN 17.4 6.7 - 19.6 mg/dL 12/24/2013 10:09 PM [facility] Creatinine 0.56 0.53 - 0.80 mg/dL 12/24/2013 10:09 PM [facility] eGFR by MDRD mL/min/1.7 3m2 12/24/2013 10:09 PM [facility] Comment:eGFR calculations ar e not performed for children under 18 years old. eGFR by MDRD mL/min/1.7 3m2 12/24/2013 10:09 PM [facility] Comment:eGFR calculations ar e not performed for children under 18 years old. Alkaline Phosphatase 276 100 - 320 U/L 12/24/2013 10:09 PM [facility] ALT 64 8 - 65 U/L 12/24/2013 10:09 PM [facility] AST 57(H) 3 - 35 U/L 12/24/2013 10:09 PM [facility] Protein Total 7.0 6.2 - 9.1 gm/dL 12/24/2013 10:09 PM [facility] Albumin 4.3 3.6 - 4.9 gm/dL 12/24/2013 10:09 PM [facility] Bilirubin Total 3.7(H) 0.3 - 1.2 mg/dL 12/24/2013 10:09 PM [facility] Blood BLOOD SPECIMEN / Unknown Lab Venipuncture / Unknown 12/24/2013 9:33 PM CDT 12/24/2013 9:43 PM T Mera Hoffman MD LAB - CHEMISTRY ORDERABLES [facility] [address] [place] [address] * (ABNORMAL) CBC W AUTO DIFFERENTIAL (12/24/2013 9:33 PM CDT) WBC 7.6 4.5 - 14.5 x10^9/L 12/24/2013 9:39 PM CDT [facility] RBC 3.01(L) 4.00 - 5.20 x10^12/L 12/24/2013 9:39 PM CDT [facility] Hemoglobin 8.6(L) 11.5 - 15.5 gm/dL 12/24/2013 9:39 PM CDT [facility] Hematocrit 25.3(L) 35.0 - 45.0 % 12/24/2013 9:39 PM CDT [facility] MCV 84.1 77.0 - 95.0 fl 12/24/2013 9:39 PM CDT [facility] MCH 28.6 25.0 - 33.0 pg 12/24/2013 9:39 PM CDT [facility] MCHC 34.0 31.0 - 37.0 gm/dL 12/24/2013 9:39 PM CDT [facility] Platelet Count 253 100 - 400 x10^9/L 12/24/2013 9:39 PM CDT [facility] RDW-CV 12.9 11.5 - 14.0 % 12/24/2013 9:39 PM CDT [facility] MPV 9.2 6.0 - 9.5 fl 12/24/2013 9:39 PM CDT [facility] Neutrophils % 42.4 24.0 - 66.0 % 12/24/2013 9:39 PM CDT [facility] Lymphocytes % 48.2 22.0 - 61.0 % 12/24/2013 9:39 PM CDT [facility] Monocytes % 6.4 3.0 - 15.0 % 12/24/2013 9:39 PM CDT [facility] Eosinophils % 1.7 0.0 - 10.0 % 12/24/2013 9:39 PM CDT [facility] Basophils % 0.9 % 12/24/2013 9:39 PM CDT [facility] Immature Granulocytes 0.4 % 12/24/2013 9:39 PM CDT [facility] Neutrophil Absolute 3.22 x10^9/L 12/24/2013 9:39 PM CDT [facility] Lymphocytes Absolute 3.66 x10^9/L 12/24/2013 9:39 PM CDT [facility] Monocytes Absolute 0.49 x10^9/L 12/24/2013 9:39 PM CDT [facility] Eosinophils Absolute 0.13 x10^9/L 12/24/2013 9:39 PM CDT [facility] Basophils Absolute 0.07 x10^9/L 12/24/2013 9:39 PM CDT [facility] Immature Granulocytes Absolute 0.03 x10^9/L 12/24/2013 9:39 PM CDT [facility] Blood BLOOD SPECIMEN / Unknown Lab Venipuncture / Unknown 12/24/2013 9:33 PM CDT 12/24/2013 9:36 PM CDT Mera Hoffman MD LAB - HEMATOLOG Y ORDERABLES Performing Organization Address City/State/[facility] Co de Phone Number [facility] [address] [phone] documented in this encounter Visit Diagnoses Diagnosis [...] transfusion. Plan: -Admit to purple team, Dwayneios -VTVF D5/HNS @ 75ml/hr -Benadryl PRN itching [...] on Mon12/25/13 at 1115, Until Discontinued, See [employer] for NG tube administration Do not crush [...] RN) 0646 ($ Given - Provider: Linda Bryan RN) 0741 ($ Given - Provider: Kim [...] RN) documented in this encounter Care Teams Senior Commissions Analyst Relationship Specialty Start Date End Date Nohemy June MD [address] [place] [address] PCP - General Family Medicine 12/20/13 03/28/19 documented as of this encounter
--- OUTSIDE RECORDS SUMMARY | 2024-04-04 17:33 | XMS_ITS | Encounter Summary ---
Author Organization [facility] Address [address] [place] [address] Care Team Providers Care Station Mechanic Helper Name Role Phone Eduardo López PA-C Primary Care Provider Reason for Visit * Reason Onset Date Comments Medication Prior Auth Request 08/09/2023 Encounter Details Date Type Department Care Team (Late st Contact Info) Description 08/09/2023 Telephone [facility] - Endocrinology [address] [place] [address], [place] [address] Meghana White MD [address] [place] [address] [place] [address] Medication Prior Auth Request Social [...] Prior auth request submitted on line at [employer]. Office notes submitted with request Yes. Waiting for insurance response. Cover My Meds wolf: [id number] documented in this encounter Plan of Treatment Upcoming Encounters Date Type Department Care Team (Late st Contact Info) Description 04/09/2024 8:40 AM BOTTLE GAUGER Office Visit [facility] - Endocrinology [address] [facility], [place] [address] Hilario Traore MD [address] [facility] [address] [address] [place] [address] documented as of this encounter Visit Diagnoses Not on filedocumented in this encounter Care Teams Station Mechanic Helper Relationship Specialty Start Date End Date Eduardo López PA-C [address] [facility] [place] [address] PCP - General Physician Numerical Control Router Operator 07/25/23 documented as of this encounter
--- OUTSIDE RECORDS SUMMARY | 2024-04-04 17:33 | XMS_ITS | Encounter Summary ---
Author Organization [facility] Address [address] [facility] [place] [address] Care Team Providers Care Patient Financial Advocate Name Role Phone Eduardo López PA-C Primary Care Provider [phone] Encounter Details Date Type Department Care Team [...] Contact Info) Description 04/09/2024 8:40 AM RN DOCUMENT IMPROVEMENT Office Visit [facility] - Endocrinology [address] [facility], [place] [address] Hilario Traore MD [address] [place] [address] documented as of this encounter Visit Diagnoses Not on filedocumented in this encounter Care Teams Patient Financial Advocate Relationship Specialty Start Date End Date Eduardo López PA-C [address] [place] [address] PCP - General Physician Precision Lens Generator 07/25/23 documented as of this encounter
--- OUTSIDE RECORDS SUMMARY | 2024-04-04 17:33 | XMS_ITS | Encounter Summary ---
Author Organization [facility] Address [address] [place] [address]. [place], [place] [address] [place] [address] Care Team Providers Care Product Management Manager Name Role Phone Eduardo López Primary Care Provider [phone] Encounter Details Date Type Department Care Team [...] documented as of this encounter Care Teams Product Management Manager Relationship Specialty Start Date End Date Eduardo Ló[place] [address] [place] [address] PCP - General Physician Optics Test Technician Medical 07/12/23 08/14/23 documented as of this encounter
--- OUTSIDE RECORDS SUMMARY | 2024-04-04 17:33 | XMS_ITS | Encounter Summary ---
Author Organization [facility] Address [address] [place] [address]. [place] [address] [place] [address] Care Team Providers Care Film Coater Name Role Phone Eduardo López Primary Care Provider [phone] Reason for Visit * Reason Onset Date Comments Prior Authorization 09/11/2023 Encounter Details Date Type Department Care Team (Late st Contact Info) Description 09/11/2023 Telephone [facility] [place] Eduardo Ló[place] [address] [place] [address] Prior Authorization Social History Tobacco Use Types [...] PM CDT This was prescribed by pt's pipe fitter, not our office. Called Marianna with [facility] and informedher of this. She v/u. * Rachana Donahue - 09/11/2023 4:11 PM CDT Marianna with [facility] calling. Baqsimy is not covered by insurance. Will require a PA. Denise mentioned it it comes back that something else is available, [facility] can not get that medication in, not available. Questions call Denise [phone] documented in this encounter Plan of Treatment Not on file documented as of this encounter Visit Diagnoses Not on filedocumented in this encounter Additional Health Concerns Assessment Noted Time PHQ-9 Depression Total Score: 14 024 11:38 AM CDT documented as of this encounter Care Teams Film Coater Relationship Specialty Start Date End Date Eduardo Ló[place] [address] [place] [address] PCP - General Physician Lead Electrical Controls Engineer Medical 09/11/23 documented as of this encounter
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
--- OUTSIDE RECORDS SUMMARY | 2024-04-04 17:33 | XMS_ITS | Encounter Summary ---
Author Organization [facility] Address [address] [place] [address] Care Team Providers Care Flake Drier Name Role Phone Eduardo López PA-C Primary Care Provider Encounter Details Date Type Department Care Team (Late st Contact Info) Description 08/15/2023 Orders Only [facility] - Endocrinology [address] [facility], [place] [address] Thuy Lerner, RN Type 1 [...] st Contact Info) Description 04/09/2024 8:40 AM UNDERWEAR HEMMER Office Visit [facility] End[facility]ology [address] [facility], [place] [address] Hilario Traore MD [address] [facility] [place] [address] documented as of this encounter Visit Diagnoses Diagnosis Type 1 diabetes mellitus without complication (HCC)- Primary Type I (juvenile type) diabetes mellitus without mention of complication, not stated as uncontrolled documented in this encounter Care Teams Flake Drier Relationship Specialty Start Date End Date Eduardo López PA-C [address] [place] [address] PCP - General Physician Powdered Metal Supervisor 07/25/23 documented as of this encounter
--- OUTSIDE RECORDS SUMMARY | 2024-04-04 17:33 | XMS_ITS | Encounter Summary ---
Author Organization [facility] Address [address] [facility] [place] [address] Care Team Providers Care Dough Mixer Helper Name Role Phone Marcella Jones MD Primary Care Provider [phone] Encounter Details Date Type Department Care Team [...] st Contact Info) Description 04/09/2024 8:40 AM PLASTIC DOLLS MOLD FILLER Office Visit [facility] - End[facility]ology [facility] [facility], [place] [address] Hilario Traore MD [address] [facility] [address] [place] [address] documented as of this encounter Visit Diagnoses Not on filedocumented in this encounter Care Teams Dough Mixer Helper Relationship Specialty Start Date End Date Marcella Jones MD [address] [place] [address] [address] [place] [address] PCP - General Pediatrics 03/29/19 07/24/23 documented as of this encounter
--- OUTSIDE RECORDS SUMMARY | 2024-04-04 17:33 | XMS_ITS | Encounter Summary ---
Author Organization [facility] Address [address] [place] [address] Care Team Providers Care Riveter Helper Name Role Phone Eduardo López PA-C Primary Care Provider [phone] Encounter Details Date Type Department Care Team [...] st Contact Info) Description 04/09/2024 8:40 AM ASSISTANT MEN'S SOCCER COACH Office Visit [facility] - Endocrinology [address] [facility], [place] [address] Hilario Traore MD [address] [facility] [address] [place] [address] documented as of this encounter Visit Diagnoses Not on filedocumented in this encounter Care Teams Riveter Helper Relationship Specialty Start Date End Date Eduardo López PA-C [address] [place] [address] PCP - General Physician Fork Operator 07/25/23 documented as of this encounter
--- OUTSIDE RECORDS SUMMARY | 2024-04-04 17:33 | XMS_ITS | Encounter Summary ---
Author Organization [facility] Address [address] [facility] [place] [address] Care Team Providers Care Tile Inspector Name Role Phone Eduardo López PA-C Primary Care Provider [phone] Encounter Details Date Type Department Care Team [...] st Contact Info) Description 04/09/2024 8:40 AM DRUM HANDLER Office Visit [facility] Endocrinology [address] [facility], [place] [address] Hilario Traore MD [address] [facility] [place] [address] documented as of this encounter Visit Diagnoses Not on filedocumented in this encounter Care Teams Tile Inspector Relationship Specialty Start Date End Date Eduardo López PA-C [address] [place] [address] PCP - General Physician Biomass Technician 07/25/23 documented as of this encounter
--- OUTSIDE RECORDS SUMMARY | 2024-04-04 17:33 | XMS_ITS | Encounter Summary ---
Author Organization [facility] Address [address] [place] [address] Care Team Providers Care Recovery Analyst Name Role Phone Eduardo López PA-C Primary Care Provider [phone] Encounter Details Date Type Department Care Team (Late st Contact Info) Description 11/23/2023 Orders Only [facility] - Endocrinology [address] [place] [address], [place] [address] Meghana White MD [address] [place] [address] [place] [address] Type 1 diabetes mellitus without [...] st Contact Info) Description 04/09/2024 8:40 AM MED SPA MANAGER Office Visit [facility] - Endocrinology [address] [facility], [place] [address] Hilario Traore MD [address] [facility] [address] [place] [address] documented as of this encounter Visit Diagnoses Diagnosis Type 1 diabetes mellitus without complication (HCC)- Primary Type I (juvenile type) diabetes mellitus without mention of complication, not stated as uncontrolled documented in this encounter Care Teams Recovery Analyst Relationship Specialty Start Date End Date Eduardo López, PABennieC [address] [place] [address] PCP - General Physician Vascular Surgeon 07/25/23 documented as of this encounter
--- OUTSIDE RECORDS SUMMARY | 2024-04-04 17:33 | XMS_ITS | Encounter Summary ---
Author Organization [facility] Address [address] [place] [address] Care Team Providers Care Pneumatic Tube Repairer Name Role Phone Eduardo López PA-C Primary Care Provider Encounter Details Date Type Department Care Team (Late st Contact Info) Description 11/02/2023 Orders Only [facility] - Endocrinology [address] [place] [address], [place] [address] Meghana White MD [address] [place] [address] [place] [address] Social History Tobacco Use Types [...] st Contact Info) Description 04/09/2024 8:40 AM SENIOR NUCLEAR MEDICINE TECHNOLOGIST Office Visit [facility] - Endocrinology [address] [facility], [place] [address] Hilario Traore MD [address] [facility] [address] [place] [address] documented as of this encounter Visit Diagnoses Not on filedocumented in this encounter Care Teams Pneumatic Tube Repairer Relationship Specialty Start Date End Date Eduardo López PA-C [address] [place] [address] PCP - General Physician Wall Man 07/25/23 documented as of this encounter
--- OUTSIDE RECORDS SUMMARY | 2024-04-04 17:33 | XMS_ITS | Encounter Summary ---
Author Organization [facility] Address [address] [place] [address] Care Team Providers Care Customer Success Associate Name Role Phone Marcella Jones MD Primary Care Provider [phone] Encounter Details Date Type Department Care Team (Late st Contact Info) Description 04/04/2019 Orders Only [facility] Pediatrics - Orthopedics [address] [place] [address] Gabriela Lentz, RN [address] [facility] [address] [place] [address] Right knee pain, unspecified chronicity Social History [...] st Contact Info) Description 04/09/2024 8:40 AM DIESEL PLANT OPERATOR Office Visit [facility] - Endocrinology [address] [facility], [place] [address] Hilario Traore MD [address] [facility] [address] [place] [address] documented as of this encounter Results * XR KNEE RIGHT 4VW OR MORE (04/04/2019 1:15 PM DIESEL PLANT OPERATOR) Anatomical Region Laterality Modality Lower Extremity Radiographic Zhane ging 04/04/2019 1:15 PM DIESEL PLANT OPERATOR Impressions 04/04/2019 1:16 PM DIESEL PLANT OPERATOR Normal views of the right knee Reading Radiologist: Cameron Lino MD on 04/04/2019 at 1:16 PM Narrative 04/04/2019 1:16 PM DIESEL PLANT OPERATOR INDICATION: Right knee pain COMPARISON: None [...] chronicity documented in this encounter Care Teams Customer Success Associate Relationship Specialty Start Date End Date Marcella Jones MD [address] [place] [address] PCP - General Pediatrics 03/29/19 07/24/23 documented as of this encounter
--- OUTSIDE RECORDS SUMMARY | 2024-04-04 17:33 | XMS_ITS | Encounter Summary ---
Author Organization [facility] Address [address] [place] [address] Care Team Providers Care Rn Integrity Name Role Phone Eduardo López PA-C Primary Care Provider [phone] Reason for Visit * Reason Onset Date Comments Medication Issue 11/16/2023 Encounter Details Date Type Department Care Team (Late st Contact Info) Description 11/16/2023 Telephone [facility] Endocrinology [address] [facility], [place] [address] Meghana White MD [address] [place] [address] [place] [address] Medication Issue Social History Tobacco [...] st Contact Info) Description 04/09/2024 8:40 AM SEWING MACHINE OPERATOR SEMIAUTOMATIC Office Visit [facility] - Endocrinology [address] [facility], [place] [address] Hilario Traore MD [address] [facility] [address] [place] [address] documented as of this encounter Visit Diagnoses Not on filedocumented in this encounter Care Teams Rn Integrity Relationship Specialty Start Date End Date Eduardo López PA-C [address] [place] [address] PCP - General Physician Hot Baller 07/25/23 documented as of this encounter
--- OUTSIDE RECORDS SUMMARY | 2024-04-04 17:33 | XMS_ITS | Encounter Summary ---
Author Organization [facility] Address [address] [place] [address]. [place], [place] [address] [place] [address] Care Team Providers Care Microsoft Architect Name Role Phone Eduardo López Primary Care Provider [phone] Encounter Details Date Type Department Care Team [...] documented as of this encounter Care Teams Microsoft Architect Relationship Specialty Start Date End Date Eduardo Ló[place] [address] [place] [address] PCP - General Physician Oil Furnace Installer Medical 09/11/23 documented as of this encounter
--- OUTSIDE RECORDS SUMMARY | 2024-04-04 17:33 | XMS_ITS | Encounter Summary ---
Author Organization [facility] Address [address] [place] [address] Care Team Providers Care Lead Nurse Name Role Phone Eduardo López PA-C Primary Care Provider [phone] Reason for Visit * Reason Onset Date Comments Medication Prior Auth Request 11/01/2023 Encounter Details Date Type Department Care Team (Late st Contact Info) Description 11/01/2023 Telephone [facility] Endocrinology [address] [place] [address], [place] [address] Meghana White MD [address] [place] [address] [place] [address] Medication Prior Auth Request Social [...] Prior auth request submitted on line at [employer]. Office notes submitted with request Yes. Waiting for insurance response. Cover My Meds wolf:[id number] documented in this encounter Plan of Treatment Upcoming Encounters Date Type Department Care Team (Late st Contact Info) Description 04/09/2024 8:40 AM SALES ANALYST Office Visit [facility] Endocr[facility]ology [address] [facility], [place] [address] Hilario Traore MD [address] [facility] [place] [address] documented as of this encounter Visit Diagnoses Not on filedocumented in this encounter Care Teams Lead Nurse Relationship Specialty Start Date End Date Eduardo López, EDUARDO [address] [place] [address] PCP - General Physician Bacon Stringer 07/25/23 documented as of this encounter
--- OUTSIDE RECORDS SUMMARY | 2024-04-04 17:33 | XMS_ITS | Encounter Summary ---
Author Organization [facility] Address [address] [place] [address] Care Team Providers Care Safety Technician Name Role Phone Eduardo López PA-C Primary Care Provider Reason for Referral * Other Medical (Routine) - Pending Review Specialty Diagnoses / Procedures Referred By Dali t Referred To Contact Endocrinology Diagnoses Type 1 diabetes mellitus without complication (HCC) Meghana White MD [address] [place] [address], [facility] [place] [address] Referral ID Status Reason Start Date Expiration Date Visits Requested Visits Authorized [id number] Pending Review Specialty Services Required 07/25/2023 07/24/2024 5 5 Reason for Visit * Consult, Test & Treat (Urgent) - Closed Specialty Diagnoses / Procedures Referred By Contac t Referred To Contact Endocrinology Diagnoses Type 1 diabetes (HCC) Eduardo López PA-C [address] [place] [address] Referral ID Status Reason Start Date Expiration Date Visits Re quested Visits Authorized [id number] Closed 07/21/2023 07/20/2024 1 1 Encounter Details Date Type Department Care Team (Late st Contact Info) Description 07/25/2023 8:20 AM CDT Office Visit [facility] - Endocrinology [address] [place] [address], [place] [address] Meghana White MD [address] [place] [address] [place] [address] Type 1 diabetes mellitus without complication (HCC) [...] 9:43 AM CDT Thank you for visiting [facility] Endocrinology. We appreciate your confidence in allowing us to participate in your health care. You may receive a survey about your visit with us today. Making our patients happy is our mission. Please tell us if we made the right impression on you- and how we can serve you better. APPOINTMENTS: [phone] or you can send a [employer] message. Normal business hours are from 8:00 am to 4:30 pm Monday through Monday. Fax# [phone] REFILL REQUESTS: contact your pharmacy who will reach out to us. If you have changes to your prescription, you will need to contact us directly at [phone] or send your doctor a [employer] message. We request that all prescription refills be requested during regular office phone hours. If your prescription requires a prior authorization, it may take several days for us to get approval from [employer] company before we can refill your prescription. Please do not wait until you are completely out before contacting us. MEDICAL EMERGENCY: Please call 911 or go to the nearest Emergency Room. After hours urgent calls that cannot wait until phone lines are open on the next business day are given to the Bookmobile Clerk physician electrician substation supervisor. Please call [phone] and identify yourself as a patient in our practice needing to speak to Bookmobile Clerk. The technical operator will contact the physician electrician substation supervisor. You can generally expect a return call within 30 minutes. On weekends, physicians are seeing hospitalized patients and there may be a longer wait. Test and laboratory results: Our practice typically reports lab and test results through letters orMyChart. Please allow 10 days from when your tests are completed to receive the results in the mail. Labs performed outside of [facility] facility, [facility] or [facility] may delay the results getting to us. Please contact the lab and request that they are faxed to us at [phone] IF GOING TO [facility] or [facility]- TAKE LAB ORDER WITH YOU or they may turn you away [facility]'s missed appointment policy is: Patients with 3 consecutively missed appointments OR 3 missed appointments in a 12 month period will no longer be seen by Endocrinology. They will be asked to seek consultation outside of [facility]. A missed appointment is defined as: Arriving to a scheduled appointment too late to be seen (Patients who arrive to clinic later than their scheduled appointment time may not be seen) Not showing up or calling 24-48 hours prior to an appointment An appointment cancelled less than 24 hours in advance ADDRESS: [facility], [address] [place] [address], 2nd [place] [address] Website: [email or web address] for additional information about [facility] and an interactive health encyclopedia. Same Lantus, [...] White MD - 07/25/2023 8:20 AM CDT [facility] Endocrine Patient Note Date of Service- 07/25/2023 Chief Complaint or Purpose for Referral: New onset DM1 presented as DKA History of Present Illness: Himanshu Damon is a 17 year old female, with PMH below, who presents to the [facility] endocrine clinic today for T1DM. She is [...] Glucagon (Baqsimi Two Pack) 3 MG/DOSE POWD [place] 3 mg into the nose as directed [...] STRIP NEEDED USE INSTRUCTED ??? ReliOn [place] 32G X 4 MM MISC Inject 1 [...] OF CARE (AMB) [facility] - ReliOn [place] 32G X 4 MM MISC; Inject 1 [...] Glucagon (Baqsimi Two Pack) 3 MG/DOSE POWD; [place] 3 mg into the nose as directed [...] counseling on T1Dm management. Meghana White MD [facility] division of endocrinology, diabetes and metabolism 07/25/2023 documented in this encounter Plan of Treatment Upcoming Encounters Date Type Department Care Team (Late st Contact Info) Description 04/09/2024 8:40 AM SUPERVISOR IRRIGATION Office Visit [facility] - Endocrinology [facility] [facility], [place] [address] Hilario Traore MD [address] [facility] [place] [address] Scheduled Referrals Name Type Priority Associated Diagnoses Orde r Schedule Ref to ENDO Diabetes Self Mgt Ed and Training -[facility] Outpatient Referral Routine Type 1 diabetes mellitus [...] - 3.3 ng/mL 07/26/2023 9:33 PM CDT [facility] ([facility]) Comment: INTERPRETIVE INFORMATION: Serum, C-Peptide Reference Interval applies to fasting specimens. To convert to nmol/L, multiply by 0.33 Performed By: [employer] [address] [place] [address] Casting Sorter: Luis Campoverde MD, PhD CLIA Number: [id number] Blood BLOOD SPECIMEN / Unknown Lab Venipuncture / Unknown 07/25/2023 11:52 AM CDT 07/25/2023 12:11 PM CDT Meghana White MD LAB - CHEMISTRY ORDE SELIN Performing Organization Address [facility] Co de Phone Number [facility] [employer] [facility]) [address] * (ABNORMAL) GLUTAMIC ACID DECARBOXYLASE (PATRICIA) ANTIBODY (07/25/2023 11:52 AM CDT) Glutamic Acid Decarboxylase Antibody 51.9(H) 0.0 - 5.0 IU/mL 07/27/2023 8:03 AM CDT [facility] ([facility]) Comment: INTERPRETIVE INFORMATION: ??Glutamic Acid Decarboxylase Antibody A value greater than 5.0 IU/mL is considered positive for Glutamic Acid Decarboxylase Antibody (PATRICIA Ab). This assay is intended for the semi-quantitative determination of the PATRICIA Ab in human serum. Results should be interpreted within the context of clinical symptoms. Performed By: [place] [address] Casting Sorter: Luis Campoverde MD, PhD CLIA Number: [id number] Blood BLOOD SPECIMEN / Unknown Lab Venipuncture / Unknown 07/25/2023 11:52 AM CDT 07/25/2023 12:11 PM CDT Meghana White MD LAB - SEROLOGY ORDER ASIM Performing Organization Address City/[facility] Co de Phone Number [facility] [employer] ([facility]) [address] * (ABNORMAL) LIPID PROFILE (07/25/2023 11:52 AM CDT) Cholesterol Total 250(H) <200 mg/dL 07/25/2023 12:46 PM CDT [facility] HDL 106 >40 mg/dL 07/25/2023 12:46 PM CDT [facility] Comment: ATP III Classification of HDL Cholesterol: ? <40 mg/dL: ??Considered a major risk factor. ? >60 mg/dL: ??Considered a negative risk factor. ? LDL Calculated 133(H) <100 mg/dL 07/25/2023 12:46 PM T [facility] Comment: ATP III Classification of LDL Cholesterol: ?<100 mg/dL: ??Optimal ? 100 - 129 mg/dL: ??Near Optimal/Above Optimal ? 130 - 159 mg/dL: ??Borderline High ? 160 - 189 mg/dL: ??High ?>190 mg/dL: ??Very High ? Triglycerides 53 <150 mg/dL 07/25/2023 12:46 PM [facility] Comment: ATP III Classification of Triglycerides: ?<150 mg/dL: ??Normal ? 150 - 199 mg/dL: ??Borderline High ? 200 - 400 mg/dL: ??High ?>500 mg/dL: ??Very High Blood BLOOD SPECIMEN / Unknown Lab Venipuncture / Unknown 07/25/2023 11:52 AM CDT 07/25/2023 12:13 PM CDT Meghana White MD LAB - CHEMISTRY [facility] [place] [facility] Organization Address [facility] Co de Phone Number [facility] [address] [place] [address], [facility] [phone] * MICROALB/CREAT RATIO URINE RANDOM PANEL (07/25/2023 11:52 AM CDT) Albumin Random Urine <5.0 Not Established ug/mL 07/25/2023 12:44 PM CDT [facility] Creatinine Urine 56.43 Not Established mg/dL 07/25/2023 12:44 PM T [facility] Urine Albumin/Creati nine Ratio <9 <30 mg/g 07/25/2023 12:44 PM T [facility] Albumin/Creati nine Ratio Urine See Comment <30 mg/g 07/25/2023 12:44 PM [facility] Comment:Unable to calculate the Urine Albumin/Creatinine Ratio due to one or more analyte concentration(s) being outside the measuring limits of the instrument. Urine URINE SPECIMEN OBTAINED BY CLEAN CATCH PROCEDURE / Unknown Collection / Unknown 07/25/2023 11:52 AM CDT 07/25/2023 12:14 PM CDT Meghana White MD LAB - URINE CHEMISTR Y ORDERABLES Performing Organization Address City/[facility]/ZIP Co de Phone Number [address] [address], [facility] [phone] * TSH (07/25/2023 11:52 AM CDT) TSH 0.760 0.350 - 4.940 uIU/mL 07/25/2023 1:04 PM [facility] Blood BLOOD SPECIMEN / Unknown Lab Venipuncture / Unknown 07/25/2023 11:52 AM CDT 07/25/2023 12:13 PM CDT Meghana White MD LAB - CHEMISTRY ORDE RABLES Performing Organization Address City/[facility]/ZIP Co de Phone Number [address] [address], [facility] [phone] * (ABNORMAL) COMPREHENSIVE METABOLIC PANEL (07/25/2023 11:52 AM CDT) BUN 20 7 - 26 mg/dL 07/25/2023 12:46 PM [facility] Creatinine 0.48(L) 0.56 - 0.96 mg/dL 07/25/2023 12:46 PM [facility] Sodium 140 136 - 145 mmol/L 07/25/2023 12:46 PM T [facility] Potassium 3.8 3.5 - 4.5 mmol/L 07/25/2023 12:46 PM T [facility] Chloride 105 98 - 107 mmol/L 07/25/2023 12:46 PM [facility] CO2 27 22 - 29 mmol/L 07/25/2023 12:46 PM [facility] Glucose 106 70 - 115 mg/dL 07/25/2023 12:46 PM [facility] Calcium 9.3 8.4 - 10.2 mg/dL 07/25/2023 12:46 PM [facility] Protein Total 7.0 6.0 - 8.3 g/dL 07/25/2023 12:46 PM [facility] Albumin 3.8 3.4 - 5.0 g/dL 07/25/2023 12:46 PM [facility] Bilirubin Total 0.4 0.2 - 1.2 mg/dL 07/25/2023 12:46 PM [facility] Alkaline Phosphatase 112 40 - 150 U/L 07/25/2023 12:46 PM [facility] ALT 47 5 - 55 U/L 07/25/2023 12:46 PM [facility] AST 22 5 - 34 U/L 07/25/2023 12:46 PM [facility] Anion Gap 8 6 - 16 07/25/2023 12:46 PM [facility] BUN/Creatinine Ratio 42(H) 7 - 23 07/25/2023 12:46 PM [facility] Osmolality Calculated 293 275 - 295 mOsm/kg 07/25/2023 12:46 PM [facility] Albumin/Globulin Ratio 1.2 1.1 - 2.3 07/25/2023 12:46 PM [facility] eGFR by CKD-EPI >90 >=90 mL/min/1.7 3 m2 07/25/2023 12:46 PM [facility] Blood BLOOD SPECIMEN / Unknown Lab Venipuncture / Unknown 07/25/2023 11:52 AM CDT 07/25/2023 12:13 PM [facility] Meghana White MD LAB - CHEMISTRY [facility] [place] [facility] Organization Address City/State/ZIP Co de Phone Number [facility] [address] [place] [address], [facility] [phone] * (ABNORMAL) CBC W/ DIFFERENTIAL (07/25/2023 11:52 AM CDT) [facility] WBC 6.2 4.0 - 10.7 x10E9/L 07/25/2023 12:18 PM [facility] RBC Count 3.87(L) 3.90 - 5.20 x10E12/L 07/25/2023 12:18 PM [facility] Hemoglobin 12.2 11.9 - 15.8 g/dL 07/25/2023 12:18 PM [facility] Hematocrit 37.7 34.8 - 46.1 % 07/25/2023 12:18 PM [facility] MCV 97.4 80.0 - 98.0 fL 07/25/2023 12:18 PM [facility] MCH 31.5 26.7 - 33.6 pg 07/25/2023 12:18 PM [facility] MCHC 32.4 31.7 - 36.3 g/dL 07/25/2023 12:18 PM [facility] RDW-CV 15.2(H) 11.3 - 14.8 % 07/25/2023 12:18 PM [facility] Platelet Count 326 150 - 420 x10E9/L 07/25/2023 12:18 PM [facility] MPV 9.0 7.8 - 11.4 fL 07/25/2023 12:18 PM [facility] Neutrophil % 65.2 41.0 - 74.0 % 07/25/2023 12:18 PM [facility] Lymphocyte % 22.7 17.0 - 47.0 % 07/25/2023 12:18 PM [facility] Monocyte % 9.2 3.0 - 11.0 % 07/25/2023 12:18 PM [facility] Eosinophil % 1.6 0.0 - 7.0 % 07/25/2023 12:18 PM [facility] Basophil % 0.8 0.0 - 1.6 % 07/25/2023 12:18 PM [facility] Immature Granulocytes % 0.5 0.0 - 1.0 % 07/25/2023 12:18 PM CDT [facility] Neutrophil Absolute 4.03 1.60 - 7.50 x10E9/L 07/25/2023 12:18 PM CDT [facility] Lymphocyte Absolute 1.40 1.00 - 4.40 x10E9/L 07/25/2023 12:18 PM CDT [facility] Monocyte Absolute 0.57 0.15 - 1.00 x10E9/L 07/25/2023 12:18 PM CDT [facility] Eosinophil Absolute 0.10 0.00 - 0.60 x10E9/L 07/25/2023 12:18 PM CDT [facility] Basophil Absolute 0.05 0.00 - 0.13 x10E9/L 07/25/2023 12:18 PM CDT [facility] Blood BLOOD SPECIMEN / Unknown Lab Venipuncture / Unknown 07/25/2023 11:52 AM CDT 07/25/2023 12:13 PM CDT Meghana White MD LAB - HEMATOLOGY ORD ERABLES [facility] [address] [place] [address], [facility] [phone] * GLUCOSE - POINT OF CARE (AMB) U (07/25/2023 9:53 AM CDT) Glucose WB/POC 91 70 - 115 mg/dL [address] Blood BLOOD SPECIMEN / Unknown 07/25/2023 9:53 AM CDT Meghana White MD LAB - POINT OF CARE ORDERABLES Performing Organization Address [facility]/State/ZIP Co de Phone Number [address], [place] [address], [facility] [phone] * HEMOGLOBIN A1C - POINT OF CARE (AMB) U (07/25/2023 8:43 AM CDT) Hemoglobin A1c POCT 11.7 % [address] BLOOD SPECIMEN / Unknown 07/25/2023 8:43 AM CDT Meghana White MD LAB - POINT OF CARE ORDERABLES [facility] [employer] [facility] [address] [facility] [place] [address], [facility] [phone] documented in this encounter Visit Diagnoses Diagnosis Type 1 diabetes mellitus without complication (HCC)- Primary Type I (juvenile type) diabetes mellitus without mention of complication, not stated as uncontrolled documented in this encounter Care Teams Safety Technician Relationship Specialty Start Date End Date Eduardo López, PABennieC [address] [place] [address] PCP - General Physician Ship Surveyor 07/25/23 documented as of this encounter
--- OUTSIDE RECORDS SUMMARY | 2024-04-04 17:33 | XMS_ITS | Encounter Summary ---
Author Organization [facility] Address [address] [place] [address] Care Team Providers Care Vinegar Maker Name Role Phone Eduardo López PA-C Primary Care Provider Reason for Visit * Reason Onset Date Comments Medication Prior Auth Request 11/23/2023 Encounter Details Date Type Department Care Team (Late st Contact Info) Description 11/23/2023 Telephone [facility] Endocr[facility]ology [address] [place] [address], [place] [address] Meghana White MD [address] [place] [address] [place] [address] Medication Prior Auth Request Social [...] Prior auth request submitted on line at [employer]. Office notes submitted with request Yes. Waiting for insurance response. Cover My Meds wolf:[id number] documented in this encounter Plan of Treatment Upcoming Encounters Date Type Department Care Team (Late st Contact Info) Description 04/09/2024 8:40 AM BIRTH ATTENDANT Office Visit [facility] - Endocrinology [address] [facility] [place] [address] Hilario Traore MD [address] [facility] [place] [address] documented as of this encounter Visit Diagnoses Not on filedocumented in this encounter Care Teams Vinegar Maker Relationship Specialty Start Date End Date Eduardo López, MARITOC [address] [place] [address] PCP - General Physician Inpatient Services Director 07/25/23 documented as of this encounter
--- OUTSIDE RECORDS SUMMARY | 2024-04-04 17:33 | XMS_ITS | Referral Summary ---
Author Organization [facility] Address [address] [facility] [place] [address] Care Team Providers Care Corset Maker Name Role Phone Eduardo López PA-C Primary Care Provider [phone] Source Comments [facility],non-owned Affiliates and Associated Physician Practices is amultiple site organization consisting of ambulatory clinics and hospital sitesin [place], [place], [place] and [place]. This disclosure is being madepursuant to the Care Everywhere program and may not contain all information available regarding this patient. Last updated 17.[facility] Allergies Active Allergy Reactions Criticality Noted Date [...] Glucagon (Baqsimi Two Pack) 3 MG/DOSE POWD [place] 3 mg into the nose as directed [...] requiring transfusion. Plan: -Admit to purple teamGm -MDVF D5/HNS @ 75ml/hr -Benadryl PRN itching -Regular [...] st Contact Info) Description 04/09/2024 8:40 AM MANAGER FLOOR Office Visit [facility] Endocrinology [address] [facility], [place] [address] Hilario Traore MD [address] [facility] [address] [place] [address] Care Teams Corset Maker Relationship Specialty Start Date End Date Eduardo López, PABennieC [address] [place] [address] PCP - General Physician Cellar Pumper 07/25/23
--- OUTSIDE RECORDS SUMMARY | 2024-04-04 17:33 | XMS_ITS | Encounter Summary ---
Author Organization [facility] Address [address] [place] [address] Care Team Providers Care Supervisor Evaporator Name Role Phone Eduardo López PA-C Primary Care Provider [phone] Reason for Visit * Reason Onset Date Comments Medication Clarification 08/14/2023 Encounter Details Date Type Department Care Team (Late st Contact Info) Description 08/14/2023 Telephone [facility] Endocrinology [address] [facility], [place] [address] Meghana White MD [address] [place] [address] [place] [address] Medication Clarification Social History Tobacco [...] call juliana Pt mothers Call back # [phone] documented in this encounter Plan of Treatment Upcoming Encounters Date Type Department Care Team (Late st Contact Info) Description 04/09/2024 8:40 AM PONDMAN Office Visit [facility] - Endocrinology [address] [facility], [place] [address] Hilario Traore MD [address] [facility] [address] [place] [address] documented as of this encounter Visit Diagnoses Not on filedocumented in this encounter Care Teams Supervisor Evaporator Relationship Specialty Start Date End Date Eduardo López PA-C [address] [place] [address] PCP - General Physician Manufacturing Specialist 07/25/23 documented as of this encounter
--- OUTSIDE RECORDS SUMMARY | 2024-04-04 17:33 | XMS_ITS | Encounter Summary ---
Author Organization [facility] Address [address] [place] [address]. [place], [place] [address] [place] [address] Care Team Providers Care Onboarding Specialist Name Role Phone Eduardo Lóepz Primary Care Provider [phone] None, Provider Primary Care Provider Unavaila ble [...] documented as of this encounter Care Teams Onboarding Specialist Relationship Specialty Start Date End Date Eduardo Ló[place] [address] [place] [address] PCP - General Physician Assistant Infant Toddler Teacher Medical 07/12/23 08/14/23 None, Provider, PCP - General UNKNOWN PHYSICIAN SPECIALTY 08/15/23 09/10/23 documented as of this encounter
--- OUTSIDE RECORDS SUMMARY | 2024-04-04 17:33 | XMS_ITS | Encounter Summary ---
Author Organization [facility] Address [address] [place] [address] Care Team Providers Care Director Cost Name Role Phone Eduardo López PA-C Primary Care Provider Reason for Visit * Reason Onset Date Comments Appointment 08/25/2023 Encounter Details Date Type Department Care Team (Late st Contact Info) Description 08/25/2023 Telephone [facility] - Endocrinology [address] [place] [address], [place] [address] Meghana White MD [address] [place] [address] [place] [address] Appointment Social History Tobacco Use [...] and decom on Pt call back # [phone] documented in this encounter Plan of Treatment Upcoming Encounters Date Type Department Care Team (Late st Contact Info) Description 04/09/2024 8:40 AM SYSTEMATIC THEOLOGY PROFESSOR Office Visit [facility] - Endocrinology [address] [facility], [place] [address] Hilario Traore MD [address] [place] [address] documented as of this encounter Visit Diagnoses Not on filedocumented in this encounter Care Teams Director Cost Relationship Specialty Start Date End Date Eduardo López PA-C [address] [place] [address] PCP - General Physician Multimedia Artist 07/25/23 documented as of this encounter
--- OUTSIDE RECORDS SUMMARY | 2024-04-04 17:34 | XMS_ITS | Encounter Summary ---
Author Organization [facility] Address [address] [place] [address]. [place], [place] [address] [place] [address] Care Team Providers Care Coastal/Harbor Defense Officer Name Role Phone Eduardo López Primary Care Provider [phone] Reason for Visit * Reason Onset Date Comments Referral 07/21/2023 Encounter Details Date Type Department Care Team (Late st Contact Info) Description 07/21/2023 Telephone [facility] Medical Group Family & Internal Medicine [facility] [address] [place] [address] Eduardo Ló[place] [address] [place] [address] Referral Social History Tobacco Use [...] 07/24/2023 7:12 AM CDT Referral placed for [facility] for diabetic education. * Hilda To - 07/21/2023 2:58 PM CDT Marcelina from [facility] called and this patient needs a referral [...] documented as of this encounter Care Teams Coastal/Harbor Defense Officer Relationship Specialty Start Date End Date Eduardo López [place] [address] [place] [address] PCP - General Physician Veterinary Technology Instructor Medical 07/12/23 08/14/23 documented as of this encounter
--- OUTSIDE RECORDS SUMMARY | 2024-04-04 17:34 | XMS_ITS | Encounter Summary ---
Author Organization [facility] Address [address] [place] [address]. [place], [place] [address] [place] [address] Care Team Providers Care Order Planner Name Role Phone None, Provider MD Primary Care Provider Unavaila ble Reason for Visit * Reason Comments Eye Problem Encounter Details Date Type Department Care Team (Late st Contact Info) Description 03/30/2023 4:25 PM CARPENTER RAILCAR - 03/30/2023 4:51 PM CARPENTER RAILCAR Emergency [facility] Emergency Room [id number] [place] [id number] Tay Ward MD [address] [place] [address] Eye Problem Discharge Disposition: Home or Self [...] Comments Blood Pressure 104/71 03/30/2023 4:25 PM CARPENTER RAILCAR Pulse 111 03/30/2023 4:25 PM CARPENTER RAILCAR Temperature 36.6 ??C (97.8 ??F) 03/30/2023 4:25 PM CS T Respiratory Rate 20 03/30/2023 4:25 PM CARPENTER RAILCAR Oxygen Saturation 99% 03/30/2023 4:25 PM CARPENTER RAILCAR Inhaled Oxygen Concentration - - Weight 47.6 kg (105 lb) 03/30/2023 4:25 PM CARPENTER RAILCAR Height 162.6 cm (5' 4 ) 03/30/2023 4:25 PM CARPENTER RAILCAR Body Mass Index 18.02 03/30/2023 4:25 PM CARPENTER RAILCAR documented in this encounter Discharge Instructions * Attachments The following attachments cannot be sent through Care Everywhere. * Conjunctivitis (Pinkeye) Discharge Instructions (Azeri) documented in this encounter Medications at Time [...] Disposition: Discharge Tay Ward MD 03/31/23 0954 ENTER RAILCAR * Nurse Lynette Rodas II - 03/30/2023 4:25 PM CST Pt presents to ED with double eye infection originating on 03/27. Reports severe swelling last night and vision affected, no swelling on arrival and not affecting vision. Cosigned by Lexi Ambrosio RN at 03/30/2023 4:36 PM CARPENTER RAILCAR ENTER RAILCAR ENTER RAILCAR documented in this encounter Plan of Treatment Not on file documented as of this encounter Visit Diagnoses Diagnosis Conjunctivitis- Primary Conjunctivitis, unspecified documented in this encounter Care Teams Order Planner Relationship Specialty Start Date End Date None, Provider, PCP - General 11/27/20 07/11/23 documented as of this encounter
--- OUTSIDE RECORDS SUMMARY | 2024-04-04 17:34 | XMS_ITS | Encounter Summary ---
Author Organization [facility] Address [address] [place] [address]. [place], [place] [address] [place] [address] Care Team Providers Care Banquet Line Cook Name Role Phone None, Provider Primary Care Provider Eduardo Pelletier Primary Care Provider [phone] Reason for Visit * Reason Comments Lab [...] on filedocumented in this encounter Care Teams Banquet Line Cook Relationship Specialty Start Date End Date None, Provider, PCP - General 11/27/20 07/11/23 Eduardo López [place] [address] [place] [address] PCP - General Physician Rib Puller Medical 07/12/23 08/14/23 documented as of this encounter
--- OUTSIDE RECORDS SUMMARY | 2024-04-04 17:34 | XMS_ITS | Encounter Summary ---
Author Organization [facility] Address [address] [place] [address]. [place], [place] [address] [place] [address] Care Team Providers Care After School Coordinator Name Role Phone None, Provider Primary Care Provider Eduardo Pelletier Primary Care Provider [phone] Reason for Visit * Reason Comments Lab (SCAN) Image (SCAN) ECG (SCAN) Encounter Details Date Type Department Care Team ([facility] Contact Info) Description 07/10/2023 Scan HEALTH INFO [...] ECG GENERIC (SCAN ORDER) (07/10/2023) 07/10/2023 us [facility] Scanned SCANNING Final Resu lt documented in this encounter Visit Diagnoses Not on filedocumented in this encounter Care Teams After School Coordinator Relationship Specialty Start Date End Date None, Provider, PCP - General 11/27/20 07/11/23 Eduardo López [place] [address] [place] [address] PCP - General Physician Records Specialist Medical 07/12/23 08/14/23 documented as of this encounter
--- OUTSIDE RECORDS SUMMARY | 2024-04-04 17:34 | XMS_ITS | Encounter Summary ---
Author Organization [facility] Address [address] [place] [address]. [place], [place] [address] [place] [address] Care Team Providers Care Ui Developer With Angular Js Name Role Phone None, Provider Primary Care [...] on filedocumented in this encounter Care Teams Ui Developer With Angular Js Relationship Specialty Start Date End Date None, ProviderMD PCP - General 11/27/20 07/11/23 documented as of this encounter
--- OUTSIDE RECORDS SUMMARY | 2024-04-04 17:34 | XMS_ITS | Encounter Summary ---
Author Organization [facility] Address [address] [place] [address]. [place], [place] [address] [place] [address] Care Team Providers Care Secondary Special Education Teacher Name Role Phone Eduardo López Primary Care Provider [phone] Encounter Details Date Type Department Care Team [...] on filedocumented in this encounter Care Teams Secondary Special Education Teacher Relationship Specialty Start Date End Date Eduardo Ló[place] [address] [place] [address] PCP - General Physician Correction Officer Medical 07/12/23 08/14/23 documented as of this encounter
--- OUTSIDE RECORDS SUMMARY | 2024-04-04 17:34 | XMS_ITS | Encounter Summary ---
Author Organization [facility] Address [address] [place] [address]. [place] [address] [place] [address] Care Team Providers Care Factory Maintenance Manager Name Role Phone None, Provider MD Primary Care Provider Unavaila ble Reason for Visit * Reason Comments Eye Pain Encounter Details Date Type Department Care Team (Late st Contact Info) Description 02/28/2023 8:07 AM ELECTRICAL ELECTRONICS ENGINEERS - 02/28/2023 9:39 AM [facility] Emergency [facility] Emergency Room [address] [place] [id number] Starr Vences MD [address] [place] [address] Eye Pain Discharge Disposition: Home or [...] Comments Blood Pressure 116/80 02/28/2023 8:10 AM ELECTRICAL ELECTRONICS ENGINEERS Pulse 74 02/28/2023 8:10 AM ELECTRICAL ELECTRONICS ENGINEERS Temperature 36.3 ??C (97.4 ??F) 02/28/2023 8:10 AM CS T Respiratory Rate 18 02/28/2023 8:10 AM ELECTRICAL ELECTRONICS ENGINEERS Oxygen Saturation 100% 02/28/2023 8:10 AM ELECTRICAL ELECTRONICS ENGINEERS Inhaled Oxygen Concentration - - Weight 50.3 kg (111 lb) 02/28/2023 8:10 AM ELECTRICAL ELECTRONICS ENGINEERS Height 162.6 cm (5' 4 ) 02/28/2023 8:10 AM ELECTRICAL ELECTRONICS ENGINEERS Body Mass Index 19.05 02/28/2023 8:10 AM ELECTRICAL ELECTRONICS ENGINEERS documented in this encounter Discharge Instructions * Discharge Instructions* Starr Vences MD - 02/28/2023 8:59 AM ELECTRICAL ELECTRONICS ENGINEERS Continue eyedrops as prescribed. Handwashing. Follow up with your eye doctor as needed. Return to ED if symptoms worsen. TRICAL ELECTRONICS ENGINEERS TRICAL ELECTRONICS ENGINEERS * Attachments The following attachments cannot be sent through Care Everywhere. * Conjunctivitis (Pinkeye) Discharge Instructions (Romansh) documented in this encounter Medications at Time [...] FOR PAIN 02/09/2023 01/04/2024 neomycin-polymyxi n-hydrocortisone (CORTISPORIN) 3.5-32503-[address] 2 drops into the [...] Start Date End Date Taking? Authorizing Provider yibvjmbc-iuorxvlsp-xbkenfvfztkwja (CORTISPORIN) 3.5-68515-[address] 2 drops into the [...] Disposition: Discharge Starr Vences MD 03/01/23 0722 TRICAL ELECTRONICS ENGINEERS * Lexi Ambrosio RN - 02/28/2023 8:11 [...] Patient denies vision changes, alert and oriented. TRICAL ELECTRONICS ENGINEERS documented in this encounter Plan of Treatment Not on file documented as of this encounter Visit Diagnoses Diagnosis Conjunctivitis- Primary Conjunctivitis, unspecified documented in this encounter Care Teams Factory Maintenance Manager Relationship Specialty Start Date End Date None, Provider, PCP - General 11/27/20 07/11/23 documented as of this encounter
--- OUTSIDE RECORDS SUMMARY | 2024-04-04 17:34 | XMS_ITS | Encounter Summary ---
Author Organization [facility] Address [address] [place] [address]. [place], [place] [address] [place] [address] Care Team Providers Care Upholsterer Apprentice Name Role Phone Eduardo López Primary Care Provider [phone] Encounter Details Date Type Department Care Team [...] documented as of this encounter Care Teams Upholsterer Apprentice Relationship Specialty Start Date End Date Eduardo Ló[place] [address] [place] [address] PCP - General Physician Nurse Coordinator Medical 07/12/23 08/14/23 documented as of this encounter
--- OUTSIDE RECORDS SUMMARY | 2024-04-04 17:34 | XMS_ITS | Encounter Summary ---
Author Organization [facility] Address [address] [place] [address]. [place], [place] [address] [place] [address] Care Team Providers Care Bench Lay Out Technician Name Role Phone Unavailable Primary Care Provider Unavailabl e Encounter Details Date Type Department Care Team (Late st Contact Info) Description 06/08/2016 Abstract [facility] Care [address] [place], [place] [id number] Cindy Landaverde, BUSSER [address] [facility] [address] [address] Social History Tobacco Use Types Packs/Day Years [...]
--- OUTSIDE RECORDS SUMMARY | 2024-04-04 17:34 | XMS_ITS | Encounter Summary ---
Author Organization [facility] Address [address] [place] [address]. [place], [place] [address] [place] [address] Care Team Providers Care Social Services Counselor Name Role Phone None, Provider Primary Care [...] on filedocumented in this encounter Care Teams Social Services Counselor Relationship Specialty Start Date End Date None, ProviderMD PCP - General 11/27/20 07/11/23 documented as of this encounter
--- OUTSIDE RECORDS SUMMARY | 2024-04-04 17:34 | XMS_ITS | Encounter Summary ---
Author Organization [facility] Address [address] [place] [address]. [place], [place] [address] [place] [address] Care Team Providers Care Tire Man Name Role Phone None, Provider Primary Care [...] on filedocumented in this encounter Care Teams Tire Man Relationship Specialty Start Date End Date None, ProviderMD PCP - General 11/27/20 07/11/23 documented as of this encounter
--- OUTSIDE RECORDS SUMMARY | 2024-04-04 17:34 | XMS_ITS | Encounter Summary ---
Author Organization [facility] Address [address] [place] [address]. [place], [place] [address] [place] [address] Care Team Providers Care Ballistician Name Role Phone Eduardo López Primary Care Provider [phone] Reason for Visit * Reason Comments New Patient Establish care Diabetes Encounter Details Date Type Department Care Team (Late st Contact Info) Description 07/18/2023 11:20 AM CDT Office Visit [facility] Medical Group Family & Internal Medicine [facility] [address] [place] [address] Eduardo López PA [address] [place] [address] New Patient (Establish care/); Diabetes Social [...] Kiwi Fruit Swelling Tongue swells with blisters [place] Flavor Swelling Tongue swelling and blisters Flexeril [Cyclobenzaprine] Nausea and Vomiting Pineapple Extract Unknown Past Medical History: Diagnosis Date Anxiety 2019 Depression 2020 Drug abuse (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) Type 1 diabetes ([facility]) Past Surgical History: Procedure Laterality Date [...] 1. Type 1 diabetes mellitus without complication ([facility]) Glucose Blood test strip Insulin Glargine-yfgn [...] Diagnosis Type 1 diabetes mellitus without complication ([facility])- Primary Type I (juvenile type) diabetes mellitus without mention of complication, not stated as uncontrolled documented in this encounter Additional Health Concerns Assessment Noted Time PHQ-9 Depression Total Score: 14 024 11:38 AM CDT documented as of this encounter Care Teams Ballistician Relationship Specialty Start Date End Date Eduardo López [place] [address] [place] [address] PCP - General Physician Television Anchor Medical 07/12/23 08/14/23 documented as of this encounter
--- OUTSIDE RECORDS SUMMARY | 2024-04-04 17:34 | XMS_ITS | Encounter Summary ---
Author Organization [facility] Address [address] [place] [address]. [place], [place] [address] [place] [address] Care Team Providers Care Financial Associate Name Role Phone Eduardo López Primary Care Provider [phone] Reason for Referral * Consultation (Routine) - Closed Specialty Diagnoses / Procedures Referred By Contac t Referred To Contact Pharmacist Diagnoses Type 1 diabetes mellitus ([facility]) Eduardo Ló[place] [address] [place] [address] Phone: tel: fax: Adenike Ramirez, PharmD [address] [place] [address] Phone: tel: fax: Referral ID Status Reason Start Date Expiration Date V isits Requested Visits Authorized [id number] Closed Specialty Services 07/24/2023 08/22/2024 1 1 Encounter Details Date Type Department Care Team (Late st Contact Info) Description 07/24/2023 Orders Only [facility] Medical Group Family & Internal Medicine - [place] [address] [place] [address] Eduardo Ló[place] [address] [place] [address] Social History Tobacco Use Types [...] Pharmacist Referral Routine Type 1 diabetes mellitus ([facility]) Ordered: 07/24/2023 documented as of this encounter Visit Diagnoses Diagnosis Type 1 diabetes mellitus ([facility])- Primary Type I (juvenile type) diabetes mellitus without mention of complication, not stated as uncontrolled documented in this encounter Additional Health Concerns Assessment Noted Time PHQ-9 Depression Total Score: 14 024 11:38 AM CDT documented as of this encounter Care Teams Financial Associate Relationship Specialty Start Date End Date Eduardo Ló[place] [address] [place] [address] PCP - General Physician Dye Room Helper Medical 07/12/23 08/14/23 documented as of this encounter
--- OUTSIDE RECORDS SUMMARY | 2024-04-04 17:34 | XMS_ITS | Encounter Summary ---
Author Organization [facility] Address [address] [place] [address]. [place], [place] [address] [place] [address] Care Team Providers Care Software Configuration Manager Name Role Phone None, Provider MD Primary Care Provider Unavaila ble Reason for Referral * Imaging (Urgent) - Closed Specialty Diagnoses / Procedures Referred By Contmaricel t Referred To Contact RADIOLOGY Procedures CT ORBITS W Chantel Bui MD [address] [place] [address] Phone: tel: fax: Referral ID Status Reason Start Date Expiration Date Visits Re quested Visits Authorized [id number] Closed 02/11/2023 02/12/2024 1 1 L SERVICE MANAGER Reason for Visit * Reason Comments Eye Swelling Encounter Details Date Type Department Care Team (Late st Contact Info) Description 02/11/2023 2:53 PM HOTEL SERVICE MANAGER - 02/11/2023 5:18 PM HOTEL SERVICE MANAGER Emergency [facility] Emergency Room [address] [place] [address] Chantel Sims MD [address] [place] [address] Eye Swelling Discharge Disposition: Home [...] Comments Blood Pressure 111/76 02/11/2023 5:15 PM HOTEL SERVICE MANAGER Pulse 77 02/11/2023 4:29 PM HOTEL SERVICE MANAGER Temperature 36.7 ??C (98.1 ??F) 02/11/2023 2:54 PM CS T Respiratory Rate 18 02/11/2023 5:15 PM HOTEL SERVICE MANAGER Oxygen Saturation 100% 02/11/2023 5:15 PM HOTEL SERVICE MANAGER Inhaled Oxygen Concentration - - Weight 52.2 kg (115 lb) 02/11/2023 2:54 PM HOTEL SERVICE MANAGER Height 162.6 cm (5' 4 ) 02/11/2023 2:54 PM HOTEL SERVICE MANAGER Body Mass Index 19.74 02/11/2023 2:54 PM HOTEL SERVICE MANAGER documented in this encounter Discharge Instructions * Discharge Instructions* Chantel Hill MD - 02/11/2023 4:17 PM HOTEL SERVICE MANAGER You had bacterial conjunctivitis. You will be [...] their eye secretions to these susceptible people. L SERVICE MANAGER L SERVICE MANAGER documented in this encounter Medications at [...] rates pain a 8-9/10 at this time. L SERVICE MANAGER * Chantel Hill MD - 02/11/2023 2:55 [...] ORBITS W CON Final Result by User, [id number] (02/12 1716) EXAMINATION: CT ORBITS W CON [...] answered all questions. Sent prescription to the [facility] pharmacy. Which closes at 1900 she will get with them now. Spoke with the pharmacist and she will switch to Cipro to the levofloxacin eyedrops. Recommended not taking her other eyedrops and changing to this. Recommended she call her eye doctor to follow-up as soon as possible. Discussed strict return precautions. Answered all questions. Disposition: Discharge Chantel Hill MD 02/11/231720 L SERVICE MANAGER documented in this encounter Plan of Treatment Not on file documented as of this encounter Procedures Procedure Name Priority Date/Time Associated Diagnosis Comments CT ORBITS W CON STAT 02/11/2023 4:47 PM HOTEL SERVICE MANAGER COMPREHENSIVE METABOLIC PANEL STAT 02/11/2023 3:29 PM HOTEL SERVICE MANAGER HCG QUANT (SERUM)-CHORIONIC GONADOTROPIN STAT 02/11/2023 3:29 PM HOTEL SERVICE MANAGER CBC W/DIFF AUTOMATED STAT 02/11/2023 3:29 PM HOTEL SERVICE MANAGER documented in this encounter Results * CT ORBITS W CON (02/11/2023 4:47 PM HOTEL SERVICE MANAGER) Anatomical Region Laterality Modality Orbits Computed Tomogra phy 02/11/2023 5:05 PM HOTEL SERVICE MANAGER Impressions 02/11/2023 5:11 PM HOTEL SERVICE MANAGER IMPRESSION: No evidence of orbital cellulitis. Referred By: ?? Interpreted By: Kenney Johnson MD, 02/11/2023 5:05 PM Narrative 02/11/2023 5:11 PM HOTEL SERVICE MANAGER EXAMINATION: CT ORBITS W CON CLINICAL HISTORY: [...] Result * Quantitative HCG (02/11/2023 3:29 PM HOTEL SERVICE MANAGER) HCG QUANTITATIVE <1 0 - 6 MIU/ML 02/11/2023 4:11 PM HOTEL SERVICE MANAGER [facility] Comment: WEEKS OF ? [...] MONTHS ?10,000 - 100,000 02/11/2023 3:29 PM HOTEL SERVICE MANAGER us Chantel Sims MD LABORATORY Final Result [facility] [address] [place] [address], * COMPREHENSIVE METABOLIC PANEL (02/11/2023 3:29 PM HOTEL SERVICE MANAGER) GLUCOSE 99 70 - 99 MG/DL 02/11/2023 4:11 PM HOTEL SERVICE MANAGER [facility] BUN 12 7 - 18 MG/DL 02/11/2023 4:11 PM [facility] CREATININE S/P/B 0.68 0.55 - 1.02 MG/DL 02/11/2023 4:11 PM [facility] SODIUM S/P/B 139 136 - 145 MMOL/L 02/11/2023 4:11 PM [facility] POTASSIUM S/P/B 4.1 3.5 - 5.1 MMOL/L 02/11/2023 4:11 PM [facility] CHLORIDE S/P/B 103 100 - 108 MMOL/L 02/11/2023 4:11 PM [facility] CO2 29.0 21 - 32 MMOL/L 02/11/2023 4:11 PM [facility] CALCIUM S/P/B 9.3 8.5 - 10.1 MG/DL 02/11/2023 4:11 PM [facility] BILIRUBIN TOTAL S/P/B 0.8 0.2 - 1.1 MG/DL 02/11/2023 4:11 PM [facility] TOTAL PROTEIN S/P/B 7.8 6.4 - 8.2 G/DL 02/11/2023 4:11 PM [facility] ALBUMIN S/P/B 3.9 3.4 - 5.0 G/DL 02/11/2023 4:11 PM [facility] AST 15 15 - 37 U/L 02/11/2023 4:11 PM [facility] ALT 19 14 - 55 U/L 02/11/2023 4:11 PM [facility] ALKALINE PHOSPHATASE S/P/B 95 50 - 136 U/L 02/11/2023 4:11 PM [facility] ANION GAP 7.0 5 - 15 MMOL/L 02/11/2023 4:11 PM [facility] BUN CREATININE RATIO 17.6 6 - 26 02/11/2023 4:11 PM [facility] A/G RATIO 1.0 1.0 - 2.0 RATIO 02/11/2023 4:11 PM [facility] GFR ESTIMATE >90 >90 ML/MIN/1.7 3 M2 02/11/2023 4:11 PM [facility] Comment: NOTE: eGFR is not calculated for patients <18 years of age. This is an estimated GFR calculation using the new CKD EPI creatinine equation without race and so does not require a correction factor for race. This estimated GFR should not be used for calculating drug doses. 02/11/2023 3:29 PM HOTEL SERVICE MANAGER Chantel Sims MD LABORATORY Final Result [facility] [address] [place] [address], [place] [phone] * (ABNORMAL) CBC W/DIFF AUTOMATED (02/11/2023 3:29 PM HOTEL SERVICE MANAGER) WBC 9.61 4.4 - 11.0 x10'3/uL 02/11/2023 3:35 PM [facility] RBC 4.66 4.50 - 5.10 x10'6/uL 02/11/2023 3:35 PM [facility] HGB 14.0 12.3 - 15.3 G/DL 02/11/2023 3:35 PM [facility] HCT 42.6 35.9 - 44.6 % 02/11/2023 3:35 PM [facility] MCV 91.4 80.0 - 96.0 FL 02/11/2023 3:35 PM [facility] MCH 30.0 25.3 - 30.9 PG 02/11/2023 3:35 PM [facility] MCHC 32.9 31.0 - 34.1 G/DL 02/11/2023 3:35 PM [facility] RDW 14.2 12.4 - 15.1 % 02/11/2023 3:35 PM [facility] PLT 328 151 - 353 x10'3/uL 02/11/2023 3:35 PM [facility] MPV 8.9(L) 9.6 - 12.0 FL 02/11/2023 3:35 PM [facility] RBC MORPHOLOGY NORMAL 02/11/2023 3:35 PM [facility] PLT MORPH. NORMAL 02/11/2023 3:35 PM [facility] WBC MORPHOLOGY NORMAL 02/11/2023 3:35 PM [facility] LYMPHOCYTES % 19.1 15.8 - 45.0 % 02/11/2023 3:35 PM [facility] NEUTROPHILS % 74.2(H) 42.1 - 71.9 % 02/11/2023 3:35 PM [facility] MONOCYTES % 5.7 5.7 - 12.5 % 02/11/2023 3:35 PM [facility] EOSINOPHILS 0.4 0.0 - 5.6 % 02/11/2023 3:35 PM [facility] BASOPHILS 0.4 0.0 - 1.3 % 02/11/2023 3:35 PM [facility] ABS. NEUTROPHILS 7.12(H) 1.40 - 6.00 x10'3/uL 02/11/2023 3:35 PM [facility] IMMATURE GRANS % 0.2 0.0 - 0.5 % 02/11/2023 3:35 PM [facility] ABS. LYMPHOCYTES 1.84 0.80 - 4.70 x10'3/uL 02/11/2023 3:35 PM [facility] 02/11/2023 3:29 PM HOTEL SERVICE MANAGER us Chantel Sims MD LABORATORY Final Result [facility] [address] [place] [address], [place] [phone] documented in this encounter Visit Diagnoses Diagnosis [...] at 1600 New Bag 02/11/2023 3:55 PM HOTEL SERVICE MANAGER 3 g 200 mL/hr fluorescein (FLUORETS) ophthalmic strip 1 strip 1 strip, Both Eyes, Once, 1 dose, On 02/11/23 at 1600 Given 02/11/2023 3:51 PM HOTEL SERVICE MANAGER 1 strip iopamidol (ISOVUE-370) 76 % injection 60 mL 60 mL, Intravenous, IMG once as needed, Contrast, 1 dose, Starting on 02/11/23 at 1647, Until 02/11/23 at 1638 Given 02/11/2023 4:38 PM HOTEL SERVICE MANAGER 60 mLs Left Arm ketorolac (TORADOL) injection 15 mg 15 mg, Intravenous, Once, 1 dose, On 02/11/23 at 1530, For IV administration, give over 15 seconds. Given 02/11/2023 4:28 PM HOTEL SERVICE MANAGER 15 mg ondansetron (ZOFRAN) injection 4 mg 4 mg, Intravenous, Once, 1 dose, On 02/11/23 at 1530, IV push over 2-5 minutes. Given 02/11/2023 3:29 PM HOTEL SERVICE MANAGER 4 mg tetracaine 0.5 % ophthalmic solution 1 drop 1 drop, Both Eyes, Once, 1 dose, On 02/11/23 at 1600 Given by Other 02/11/2023 3:51 PM HOTEL SERVICE MANAGER 1 drop documented in this encounter Active and Recently Administered Medications Times are shown in HOTEL SERVICE MANAGER. Scheduled Medication Order 02/09/2023 02/10/2023 02/11/2023 ampicillin-sulbactam [...] RTR) documented in this encounter Care Teams Software Configuration Manager Relationship Specialty Start Date End Date None, Provider, PCP - General 11/27/20 07/11/23 documented as of this encounter
--- OUTSIDE RECORDS SUMMARY | 2024-04-04 17:34 | XMS_ITS | Encounter Summary ---
Author Organization [facility] Address [address] [place] [address]. [place] [address] [place] [address] Care Team Providers Care Diamond Sorter Name Role Phone None, Provider Primary Care Provider Unavaila ble Encounter Details Date Type Department Care Team (Late st Contact Info) Description 11/30/2022 6:25 PM CDT - 11/30/2022 8:42 PM CDT Emergency [facility] Emergency Room [id number] [place] [address] María Elena Cardoso MD [address] [place] [address] Discharge Disposition: Home or Self Care [...] may be found under the media tab. DRAW HELPER documented in this encounter Plan of Treatment Not on file documented as of this encounter Visit Diagnoses Not on filedocumented in this encounter Care Teams Diamond Sorter Relationship Specialty Start Date End Date None, Provider, PCP - General 11/27/20 07/11/23 documented as of this encounter
--- OUTSIDE RECORDS SUMMARY | 2024-04-04 17:34 | XMS_ITS | Encounter Summary ---
Author Organization [facility] Address [address] [place] [address]. [place], [place] [address] [place] [address] Care Team Providers Care Structural Mill Supervisor Name Role Phone Eduardo López Primary Care Provider [phone] Encounter Details Date Type Department Care Team [...] documented as of this encounter Care Teams Structural Mill Supervisor Relationship Specialty Start Date End Date Eduardo Ló[place] [address] [place] [address] PCP - General Physician Jeep Mechanic Medical 07/12/23 08/14/23 documented as of this encounter
--- OUTSIDE RECORDS SUMMARY | 2024-04-04 17:34 | XMS_ITS | Encounter Summary ---
Author Organization [facility] Address [address] [place] [address]. [place], [place] [address] [place] [address] Care Team Providers Care Rn Integrated Name Role Phone Eduardo López Primary Care Provider [phone] Reason for Referral * Consultation (Urgent) - Closed Specialty Diagnoses / Procedures Referred By Dali t Referred To Contact ENDOCRINOLOGY Diagnoses Type 1 diabetes mellitus without complication ([facility]) Procedures OFFICE/OUTPATIENT NEW LOW MDM 30-44 MINUTES OFFICE/OUTPT VISIT,NEW,LEVL IV OFFICE/OUTPT VISIT,NEW,LEVL V OFFICE/OUTPT VISIT,EST,LEVL III OFFICE/OUTPT VISIT,EST,LEVL IV OFFICE/OUTPT VISIT,EST,[place] V Eduardo Ló[place] [address] [place] [address] Phone: tel: fax: [facility] [address] [place] [address] Phone: tel: fax: Referral ID Status Reason Start Date Expiration Date Visits Re quested Visits Authorized [id number] Closed 07/20/2023 07/19/2024 99 99 Scheduling Instructions PLEASE REFER PT TO DR WATKINS, WAS REFERRED TO DR VARELA AND HE WOULD NOT SEE HER UNTIL . PT CAN NOT WAIT THAT LONG NEWLY DIAGNOSED TYPE 1 DIABETIC. PLEASE TRY TO GET PT APT JAYE. Encounter Details Date Type Department Care Team (Late st Contact Info) Description 07/20/2023 Orders Only [facility] Medical Group Family & Internal Medicine [facility] [address] [place] [phone] Eduardo Ló[place] [address] [place] [address] Social History Tobacco Use Types Packs/Day Years [...] Routine Type 1 diabetes mellitus without complication ([facility]) Ordered: 07/20/2023 documented as of this encounter Visit Diagnoses Diagnosis Type 1 diabetes mellitus without complication ([facility])- Primary Type I (juvenile type) diabetes mellitus without mention of complication, not stated as uncontrolled documented in this encounter Additional Health Concerns Assessment Noted Time PHQ-9 Depression Total Score: 14 024 11:38 AM CDT documented as of this encounter Care Teams Rn Integrated Relationship Specialty Start Date End Date Eduardo Ló[place] [address] [place] [address] PCP - General Physician Sex Worker Or Escort Medical 07/12/23 08/14/23 documented as of this encounter
--- OUTSIDE RECORDS SUMMARY | 2024-04-04 17:34 | XMS_ITS | Encounter Summary ---
Author Organization [facility] Address [address] [place] [address]. [place], [place] [id number] [place] [address] Care Team Providers Care Publications Designer Name Role Phone Unavailable Primary Care Provider Unavailabl e Encounter Details Date Type Department Care Team (Late st Contact Info) Description 08/26/2008 [facility] Emergency Room [address] [place], [place] [phone] James Sandhu MD [address] [place] [address] Social History Tobacco Use Types Packs/Day Years [...]
--- OUTSIDE RECORDS SUMMARY | 2024-04-04 17:34 | XMS_ITS | Encounter Summary ---
Author Organization [facility] Address [address] [place] [address]. [place], [place] [address] [place] [address] Care Team Providers Care Glass Block Installer Name Role Phone None, Provider Primary Care [...] on filedocumented in this encounter Care Teams Glass Block Installer Relationship Specialty Start Date End Date None, Provider, PCP - General 11/27/20 07/11/23 documented as of this encounter
--- OUTSIDE RECORDS SUMMARY | 2024-04-04 17:34 | XMS_ITS | Encounter Summary ---
Author Organization [facility] Address [address] [place] [address]. [place] [address] [place] [address] Care Team Providers Care Upstream Biomanufacturing Technician Name Role Phone None, Provider MD Primary Care Provider Unavaila ble Reason for Visit * Reason Comments Jaw Swelling Encounter Details Date Type Department Care Team (Late st Contact Info) Description 11/27/2020 6:24 PM CDT - 11/27/2020 7:41 PM CDT Emergency [facility] Emergency Room [address] [place] [address] Juaquin Vieira MD [address] [place] [address] Jaw Swelling Discharge Disposition: Home or [...] 11/27/2020 6:2 7 PM CDT Growth Chart: [facility] (Girls, 2- 20 Years) documented in this encounter Discharge Instructions * Attachments The following attachments cannot be sent through Care Everywhere. * Temporomandibular Joint (TMJ) Disorders (Turkish) documented in this encounter Medications at Time [...] the jaw. Patient will follow with her director of creative services who will assist her in seeing oral [...] disorders documented in this encounter Care Teams Upstream Biomanufacturing Technician Relationship Specialty Start Date End Date None, Provider, PCP - General 11/27/20 07/11/23 documented as of this encounter
--- OUTSIDE RECORDS SUMMARY | 2024-04-04 17:34 | XMS_ITS | Encounter Summary ---
Author Organization [facility] Address [address] [place] [address]. [place], [place] [address] [place] [address] Care Team Providers Care Medical Safety Director Name Role Phone Eduardo López Primary Care Provider [phone] Encounter Details Date Type Department Care Team [...] documented as of this encounter Care Teams Medical Safety Director Relationship Specialty Start Date End Date Eduardo Ló[place] [address] [place] [address] PCP - General Physician Air Route Controller Medical 07/12/23 08/14/23 documented as of this encounter
--- OUTSIDE RECORDS SUMMARY | 2024-04-04 17:34 | XMS_ITS | Encounter Summary ---
Author Organization [facility] Address [address] [place] [address]. [place], [place] [address] [place] [address] Care Team Providers Care Vending Machine Operator Name Role Phone None, Provider Primary [...] on filedocumented in this encounter Care Teams Vending Machine Operator Relationship Specialty Start Date End Date None, ProviderMD PCP - General 11/27/20 07/11/23 documented as of this encounter
--- OUTSIDE RECORDS SUMMARY | 2024-04-04 17:34 | XMS_ITS | Encounter Summary ---
Author Organization [facility] Address [address] [place] [address]. [place], [place] [address] [place] [address] Care Team Providers Care Engineering Production Liaison Name Role Phone Eduardo López Primary Care Provider [phone] Reason for Visit * Reason Onset Date Comments Diabetes 07/25/2023 Encounter Details Date Type Department Care Team (Late st Contact Info) Description 07/25/2023 Telephone [facility] Medical Group Family & Internal Medicine [facility] [address] [place] [address] Eduardo Ló[place] [address] [place] [address] Diabetes Social History Tobacco Use [...] documented as of this encounter Care Teams Engineering Production Liaison Relationship Specialty Start Date End Date Eduardo Ló[place] [address] [place] [address] PCP - General Physician Chemist Water Purification Medical 07/12/23 08/14/23 documented as of this encounter
--- OUTSIDE RECORDS SUMMARY | 2024-04-04 17:34 | XMS_ITS | Encounter Summary ---
Author Organization [facility] Address [address] [place] [address]. [place], [place] [address] [place] [address] Care Team Providers Care Rv Service Technician Name Role Phone Eduardo López Primary Care Provider [phone] Encounter Details Date Type Department Care Team [...] documented as of this encounter Care Teams Rv Service Technician Relationship Specialty Start Date End Date Eduardo Ló[place] [address] [place] [address] PCP - General Physician Fibreglass Laminator Medical 07/12/23 08/14/23 documented as of this encounter
--- OUTSIDE RECORDS SUMMARY | 2024-04-04 17:34 | XMS_ITS | Encounter Summary ---
Author Organization [facility] Address [address] [place] [address]. [place], [place] [address] [place] [address] Care Team Providers Care Market Research Worker Name Role Phone Eduardo López Primary Care Provider [phone] Reason for Referral * Consultation (Routine) - Pending Review Specialty Diagnoses / Procedures Referred By Contmaricel t Referred To Contact DIABETES EDUCATION Diagnoses Type 1 diabetes mellitus without complication ([facility]) Procedures OFFICE/OUTPATIENT NEW LOW MDM 30-44 MINUTES OFFICE/OUTPT VISIT,NEW,LEVL IV OFFICE/OUTPT VISIT,NEW,LEVL V OFFICE/OUTPT VISIT,EST,LEVL III OFFICE/OUTPT VISIT,EST,LEVL IV OFFICE/OUTPT VISIT,EST,[place] V Eduardo López [place] [address] [place] [address] Phone: tel: fax: [address] [place] [address] Phone: tel: fax: Referral ID Status Reason Start Date Expiration Date Visits Requested Visits Authorized [id number] Pending Review Diabetes Education 07/24/2023 07/23/2024 100 100 Scheduling Instructions [facility] Encounter Details Date Type Department Care Team (Late st Contact Info) Description 07/24/2023 Orders Only [facility] Medical Group Family & Internal Medicine - [place] [address] [place] [phone] Eduardo Ló[place] [address] [place] [address] Social History Tobacco Use Types Packs/Day Years [...] Routine Type 1 diabetes mellitus without complication ([facility]) Ordered: 07/24/2023 documented as of this encounter Visit Diagnoses Diagnosis Type 1 diabetes mellitus without complication ([facility])- Primary Type I (juvenile type) diabetes mellitus without mention of complication, not stated as uncontrolled documented in this encounter Additional Health Concerns Assessment Noted Time PHQ-9 Depression Total Score: 14 024 11:38 AM CDT documented as of this encounter Care Teams Market Research Worker Relationship Specialty Start Date End Date Eduardo Ló[place] [address] [place] [address] PCP - General Physician Script Supervisor Medical 07/12/23 08/14/23 documented as of this encounter
--- OUTSIDE RECORDS SUMMARY | 2024-04-04 17:34 | XMS_ITS | Encounter Summary ---
Author Organization [facility] Address [address] [place] [address]. [place], [place] [address] [place] [address] Care Team Providers Care Roof Truss Machine Tender Name Role Phone None, Provider MD Primary Care Provider Unavaila ble Reason for Visit * Reason Comments Eye Problem Encounter Details Date Type Department Care Team (Late st Contact Info) Description 03/12/2023 7:25 AM FACILITIES MAINTENANCE TECHNICIAN - 03/12/2023 7:44 AM FACILITIES MAINTENANCE TECHNICIAN Emergency [facility] Emergency Room [id number] [place] [id number] Tay Ward MD [address] [place] [address] Eye Problem Discharge Disposition: Home or Self [...] Comments Blood Pressure 119/77 03/12/2023 7:30 AM FACILITIES MAINTENANCE TECHNICIAN Pulse 95 03/12/2023 7:30 AM FACILITIES MAINTENANCE TECHNICIAN Temperature 36.1 ??C (97 ??F) 03/12/2023 7:30 AM FACILITIES MAINTENANCE TECHNICIAN Respiratory Rate 20 03/12/2023 7:30 AM FACILITIES MAINTENANCE TECHNICIAN Oxygen Saturation 100% 03/12/2023 7:30 AM FACILITIES MAINTENANCE TECHNICIAN Inhaled Oxygen Concentration - - Weight 50.3 kg (111 lb) 03/12/2023 7:30 AM FACILITIES MAINTENANCE TECHNICIAN Height 162.6 cm (5' 4 ) 03/12/2023 7:30 AM FACILITIES MAINTENANCE TECHNICIAN Body Mass Index 19.05 03/12/2023 7:30 AM FACILITIES MAINTENANCE TECHNICIAN documented in this encounter Discharge Instructions * Attachments The following attachments cannot be sent through Care Everywhere. * Cellulitis Around the Eye Discharge Instructions (Samoan) documented in this encounter Medications at Time [...] Disposition: Discharge Tay Ward MD 03/14/23 0653 LITIES MAINTENANCE TECHNICIAN * Lexi Ambrosio RN - 03/12/2023 7:32 [...] eye drops and benadryl with no relief. LITIES MAINTENANCE TECHNICIAN LITIES MAINTENANCE TECHNICIAN documented in this encounter Plan of Treatment Not on file documented as of this encounter Visit Diagnoses Diagnosis Preseptal cellulitis- Primary Abscess of eyelid documented in this encounter Care Teams Roof Truss Machine Tender Relationship Specialty Start Date End Date None, Provider, PCP - General 11/27/20 07/11/23 documented as of this encounter
== END 2024-03-28 15:03 | disposition home or self-care (01) ==
PROVIDERS: Emergency Provider Student in an Organized Health Care Education/Training Program
DX: E10.65 Type 1 diabetes mellitus with hyperglycemia (principal); E28.2 Polycystic ovarian syndrome; N80.9 Endometriosis, unspecified; K58.1 Irritable bowel syndrome with constipation; Z79.4 Long term (current) use of insulin; Z79.899 Other long term (current) drug therapy
CPT/HCPCS: 36415; 80053; 81001; 81003; 81025; 82948; 83690; 83735; 84439; 84443; 84480; 85025; 87493; 87636; 96361; 96374; 96375; 99284; A9270; J1885; J2270; J2405; J7030

== ENCOUNTER 2025-01-15 12:09 | Emergency (ER) | payer OTHER, SELFPAY ==
--- NOTE | ~2025-01-15 | CT_ITS ---
EXAMINATION: CT abdomen pelvis w con DATE: 01/15/2025 14:45 INDICATION: Abdominal pain and vomiting TECHNIQUE: Computed tomography (CT) of the abdomen and pelvis was performed with 100 mL Omnipaque-350 intravenous contrast. Automated exposure control and iterative reconstruction technique were employed. The dose-length product was 179.33 mGy-cm. COMPARISON: 05/14/2022 FINDINGS: Lung bases are clear. Heart size is normal. No pericardial or pleural effusion. Focal hepatic steatosis at the ligamentum teres. Gallbladder, spleen, pancreas, bilateral adrenal glands and kidneys are normal. Bowels including the appendix are normal. Bladder, anteverted uterus and bilateral adnexa are unremarkable. No free intraperitoneal gas or fluid. No pathologically enlarged abdominal or pelvic lymphadenopathy. Moderate disc height loss at L5-S1 with small central disc extrusion with disc material extending a few millimeter cephalad and caudal to the level of the endplates. IMPRESSION: 1. No acute intra-abdominal/pelvic process. Reviewed, dictated and finalized at location A.
[2025-01-15 12:10] VITALS: BP 139/66; PULSE 120; RESP 16; TEMP 36.6; O2SAT 100
[2025-01-15 12:53] LABS: Hematocrit 43.4 % (37.0-47.0); Hemoglobin 14.9 g/dL (12.0-15.0); Immature Granulocyte Percent A 0.2 % (0-0.5); Lymphocytes Absolute Auto 1.53 K/mm3 (0.9-3.2); Mean Corpuscular HGB Conc 34.3 g/dl (32-36); Mean Corpuscular Hemoglobin 31.8 pg (26-34); Mean Corpuscular Volume 92.7 fl (80-100); Nucleated Red Blood Cells Absolute Auto 0.000 K/mm3 (0.0-0.012); Nucleated Red Blood Cells Perc 0.0 % (0.0-0.2); Platelet Count Result 413 k/mm3 (150-375); Red Blood Count 4.68 M/mm3 (4.2-5.4); White Blood Count 5.9 K/mm3 (4.5-10.0)
[2025-01-15 13:13] LABS: Alanine Aminotransferase 26 U/L (6-35); Albumin Level 4.7 g/dL (3.5-5.1); Alkaline Phosphatase 79 U/L (38-126); Anion Gap 10 mmol/L (4-12); Aspartate Amino Transferase 44 U/L (14-36); Bilirubin,Total 0.8 mg/dL (0.2-1.3); Blood Urea Nitrogen 11 mg/dL (7-17); Calcium 9.1 mg/dL (8.4-10.2); Carbon Dioxide 26 mmol/L (22-30); Chloride 101 mmol/L (98-107); Estimated CRCL calculation 90 ml/min; Estimated Glomerular Filt Rate > 60; Glucose 190 mg/dL (65-110); Magnesium 2.1 mg/dL (1.6-2.3); Potassium 4.2 mmol/L (3.4-5.0); Sodium 137 mmol/L (137-145); Total Protein 7.8 g/dL (6.3-8.2)
[2025-01-15] MEDS: ONDANSETRON INJ 4 MG/2 ML VIAL IV PUSH (13:32)
[2025-01-15] MEDS: FAMOTIDINE 20 MG/2 ML VIAL IV PUSH (13:32)
[2025-01-15] MEDS: LACTATED RINGERS 1,000 ML 999 ML IV CONT (13:32)
[2025-01-15 13:46] VITALS: BP 112/88; PULSE 85; RESP 17; O2SAT 100
--- NOTE | 2025-01-15 14:19 | ED_ITS ---
HPI - Nausea/Vomiting/Diarrhea General Chief complaint: Nausea/Vomiting/Diarrhea Stated complaint: T1DM, don't feel good Time Seen by Provider: 01/15/25 12:55 Source: patient Mode of arrival: ambulatory Limitations: no limitations History of Present Illness HPI Narrative: This is a 19 year old female that presents to the ER for nausea, vomiting, diarrhea. Ongoing since this morning. Reports ongoing problems with this over the last year. Diagnosed with DM last year. Has difficulty keeping her sugars under control. Denies fevers. Related Data Home Medications ?Medication ?Instructions ?Recorded ?Confirmed ?Last Taken ?Type hydroxyzine pamoate 50 mg capsule 50 mg PO DAILY 07/0907/10/23 Unknown History trazodone 100 mg tablet 50 mg PO HS PRN Insomnia 07/10/23 Unknown History Allergies Allergy/AdvReac Type Severity Reaction Status Date / Time adhesive Allergy Mild Hives Verified 01/15/25 14:31 pineapple Allergy Mild Unknown Verified 01/15/25 14:31 cyclobenzaprine Allergy Nausea and Verified 01/15/25 14:31 Vomiting kiwi Allergy Blister Verified 01/15/25 14:31 gal Allergy Blister Verified 01/15/25 14:31 Review of Systems 2 Review of Systems: All systems reviewed & are unremarkable except as noted in HPI and below PMFSH Past Medical History Medical History Type 1 diabetes mellitus on insulin therapy Endometriosis Irritable bowel syndrome with predominant constipation PCOS (polycystic ovarian syndrome) Underweight Ovarian cyst Straining during bowel movements Constipation LLQ abdominal pain Family History Family History Mother PCOS (polycystic ovarian syndrome) Grandparent PCOS (polycystic ovarian syndrome) Social History Social History Smoking status: Never smoker Second hand tobacco smoke exposure: Yes Alcohol intake: unknown Substance use: former Substance use type: marijuana and amphetamines Last use: 96 days ago Do You Feel Safe in your Home?: Yes Lack of Transportation: No Lack of Food: Never True Current Housing: I Have Housing Concerned About Future Housing: No Difficulty Paying Gas/Electric Bills: No Difficulty Paying for Meds: No Currently Unemployed: No Education: High School Diploma/GED Difficulty w/ Childcare or Family Care: No Living arrangements: with family Gender identity (if verbalized by the patient): Female Spiritual care concerns: No Exam 2 Narrative: GENERAL: Well-appearing, well-nourished, and in no acute distress. HEAD: Normocephalic, atraumatic. EYES: EOMI. CHEST: Clear to auscultation. No respiratory distress. No wheezes rales or rhonchi HEART: Regular rate and rhythm. No murmur heard. Normal peripheral pulses. ABDOMEN: Soft, nontender, nondistended, normal active bowel sounds. EXTREMITIES: Normal range of motion. No edema. SKIN: Warm, dry, no rash. NEURO: No focal deficits. Alert and oriented x3. PSYCH: Normal mood and affect Course Course Emergency Course: patient updated on her workup, resting comfortably Vital Signs Vital signs: Vital Signs Temperature 97.9 F 01/15/25 12:10 Pulse Rate 120 H 01/15/25 12:10 Respiratory Rate 16 01/15/25 12:10 Blood Pressure 139/66 01/15/25 12:10 Pulse Oximetry 100 01/15/25 12:10 Oxygen Delivery Room Air 01/15/25 12:10 Temperature 97.9 F 01/15/25 12:10 Pulse Rate 77 01/15/25 17:29 Respiratory Rate 19 01/15/25 17:29 Blood Pressure 107/69 01/15/25 17:29 Pulse Oximetry 100 01/15/25 17:29 Oxygen Delivery Room Air 01/15/25 12:10 MDM - Nausea/Vomiting/Diarrhea MDM Narrative Medical decision making narrative: Patient presents to the emergency department for abdominal pain, nausea and vomiting. Reports this has been a recurrent issue for her. Tachycardic upon arrival, this normalized with IV fluids. Cbc without leukocytosis. Metabolic panel without concerning findings. Urine without evidence of infection. test negative. CT abdomen pelvis without acute findings. patient updated on her workup, resting comfortably. Patient is to follow up with her specialists. She was given warnings to return to the ER Differential Diagnosis Differential diagnosis: Likely food poisoning, gastroenteritis, drug-induced nausea and vomiting and dehydration Lab Data Attestation: I reviewed the patient's lab results. 01/15/25 12:46 01/15/25 12:46 Labs: Lab Results 01/15/25 01/15/25 01/15/25 Range/Units 12:14 12:46 13:13 WBC 5.9 (4.5-10.0) K/mm3 RBC 4.68 (4.2-5.4) M/mm3 Hgb 14.9 (12.0-15.0) g/dL Hct 43.4 (37.0-47.0) % MCV 92.7 (80-100) fl MCH 31.8 (26-34) pg MCHC 34.3 (32-36) g/dl RDW 13.2 (11.5-14.5) % Plt Count 413 H (150-375) k/mm3 MPV 8.5 (7.4-10.4) fl Immature Gran % (Auto) 0.2 (0-0.5) % Neut % (Auto) 65.5 (45.5-73.1) % Lymph % (Auto) 26.1 (18.3-44.2) % [place] % (Auto) 7.5 (2.6-8.5) % Eos % (Auto) 0.2 (0-4.4) % Baso % (Auto) 0.5 (0.2-1.2) % Lymph # (Auto) 1.53 (0.9-3.2) K/mm3 [place] # (Auto) 0.4 (0.1-0.6) K/mm3 Eos # (Auto) 0.0 (0-0.3) K/mm3 Baso # (Auto) 0.0 (0.0-0.1) K/mm3 Abs Immat Gran (auto) 0.01 (0.00-0.031) K/mm3 Absolute Neuts (auto) 3.8 (1.3-6.7) K/mm3 Absolute Nucleated RBC 0.000 (0.0-0.012) K/mm3 Nucleated RBC % 0.0 (0.0-0.2) % Sodium 137 (137-145) mmol/L Potassium 4.2 (3.4-5.0) mmol/L Chloride 101 (98-107) mmol/L Carbon Dioxide 26 (22-30) mmol/L Anion Gap 10 (4-12) mmol/L BUN 11 (7-17) mg/dL Creatinine 0.70 (0.7-1.0) mg/dL Estim Creat Clear Calc 90 ml/min Estimated GFR > 60 (59 - ) Glucose 190 H (65-110) mg/dL POC Capillary Glucose 233 H 138 H (65-105) mg/dl Calcium 9.1 (8.4-10.2) mg/dL Phosphorus 2.5 (2.5-4.5) mg/dL Magnesium 2.1 (1.6-2.3) mg/dL Total Bilirubin 0.8 (0.2-1.3) mg/dL AST 44 H (14-36) U/L ALT 26 (6-35) U/L Alkaline Phosphatase 79 (38-126) U/L Total Protein 7.8 (6.3-8.2) g/dL Albumin 4.7 (3.5-5.1) g/dL Urine Color (Yellow) Urine Appearance (Clear) Urine pH (5.0-9.0) Ur Specific [place] (1.001-1.035) Urine Protein (Negative) mg/dL Urine Glucose (UA) (Negative) mg/dL Urine Ketones (Negative) mg/dL Ur Blood (Man) (Negative) Urine Nitrate (Negative) Urine Bilirubin (Negative) Urine Urobilinogen (<2.0) mg/dL Leukocyte Esterase Rfl (Negative) JOSE ALFREDO/UL Urine RBC (0-2) /hpf Urine WBC (0-3) /hpf Ur Squamous Epith Cells (Few) /hpf Urine Bacteria /hpf Urine Casts POC Urine HCG, Qual (Negative) 01/15/25 01/15/25 Range/Units 14:16 14:26 WBC (4.5-10.0) K/mm3 RBC (4.2-5.4) M/mm3 Hgb (12.0-15.0) g/dL Hct (37.0-47.0) % MCV (80-100) fl MCH (26-34) pg MCHC (32-36) g/dl RDW (11.5-14.5) % Plt Count (150-375) k/mm3 MPV (7.4-10.4) fl Immature Gran % (Auto) (0-0.5) % Neut % (Auto) (45.5-73.1) % Lymph % (Auto) (18.3-44.2) % [place] % (Auto) (2.6-8.5) % Eos % (Auto) (0-4.4) % Baso % (Auto) (0.2-1.2) % Lymph # (Auto) (0.9-3.2) K/mm3 [place] # (Auto) (0.1-0.6) K/mm3 Eos # (Auto) (0-0.3) K/mm3 Baso # (Auto) (0.0-0.1) K/mm3 Abs Immat Gran (auto) (0.00-0.031) K/mm3 Absolute Neuts (auto) (1.3-6.7) K/mm3 Absolute Nucleated RBC (0.0-0.012) K/mm3 Nucleated RBC % (0.0-0.2) % Sodium (137-145) mmol/L Potassium (3.4-5.0) mmol/L Chloride (98-107) mmol/L Carbon Dioxide (22-30) mmol/L Anion Gap (4-12) mmol/L BUN (7-17) mg/dL Creatinine (0.7-1.0) mg/dL Estim Creat Clear Calc ml/min Estimated GFR (59 - ) Glucose (65-110) mg/dL POC Capillary Glucose (65-105) mg/dl Calcium (8.4-10.2) mg/dL Phosphorus (2.5-4.5) mg/dL Magnesium (1.6-2.3) mg/dL Total Bilirubin (0.2-1.3) mg/dL AST (14-36) U/L ALT (6-35) U/L Alkaline Phosphatase (38-126) U/L Total Protein (6.3-8.2) g/dL Albumin (3.5-5.1) g/dL Urine Color Yellow (Yellow) Urine Appearance Clear (Clear) Urine pH 8.5 (5.0-9.0) Ur Specific [place] 1.024 (1.001-1.035) Urine Protein Trace (Negative) mg/dL Urine Glucose (UA) Negative (Negative) mg/dL Urine Ketones Trace H (Negative) mg/dL Ur Blood (Man) Negative (Negative) Urine Nitrate Negative (Negative) Urine Bilirubin Negative (Negative) Urine Urobilinogen 0.2 (<2.0) mg/dL Leukocyte Esterase Rfl Negative (Negative) JOSE ALFREDO/UL Urine RBC 3-5 H (0-2) /hpf Urine WBC 0-5 (0-3) /hpf Ur Squamous Epith Cells None seen (Few) /hpf Urine Bacteria None seen /hpf Urine Casts 0-2 POC Urine HCG, Qual Negative (Negative) Imaging Data Radiologist's impression: ITS Impressions Abdomen/Pelvis CT 01/15/25 15:02 IMPRESSION: 1. No acute intra-abdominal/pelvic process. Critical Care Time Critical Care Time Critical Care Time: No Discharge Plan Discharge Clinical Impression: Nausea and vomiting Qualifiers: Vomiting type: unspecified Qualified Code(s): R11.2 - Nausea with vomiting, unspecified Patient Disposition: Home Condition: Improved Instructions: Acute Nausea and Vomiting (ED) Additional Instructions: Return to the ER if you experience fever, abdominal pain with nausea and vomiting, you are unable to keep down liquids or solids, or any other symptoms that are concerning to you Small, frequent meals. [place] diet. Remain well hydrated. Ondansetron as needed for nausea Follow up with your apns and gastroenerologist Patient Language: Trinidadian Prescriptions: New ondansetron 4 mg tablet,disintegrating 4 mg PO Q6H PRN (Reason: nausea and vomiting) Qty: 14 0RF No Action ibuprofen 600 mg tablet 600 mg PO TID PRN (Reason: pain) Qty: 20 0RF ondansetron 4 mg tablet,disintegrating 4 mg PO Q8H PRN (Reason: nausea and vomiting) Qty: 7 0RF acetaminophen 500 mg capsule 1,000 mg PO Q6H PRN (Reason: pain) Qty: 20 0RF dicyclomine 10 mg capsule 10 mg PO BID PRN (Reason: abdominal pain) Qty: 10 0RF trazodone 100 mg tablet 50 mg PO HS PRN (Reason: Insomnia) hydroxyzine pamoate 50 mg capsule 50 mg PO DAILY Rx Instructions: for anxiety symptoms insulin glargine [Lantus U-100 Insulin] 100 unit/mL Solution 35 unit subcut DAILY Qty: 1 1RF insulin aspart U-100 [Novolog U-100 Insulin aspart] 100 unit/mL Solution 2 - 4 unit subcut HS Qty: 1 1RF Protocol: Insulin Corrective High-Dose Condition: glucose < 70 mg/dl Dose/Route: Follow hypoglycemia order Condition: glucose 70-200 mg/dl Dose/Route: No additional insulin Condition: glucose 201-250 mg/dl Dose/Route: 2 units sub-Q Condition: glucose 251-300 mg/dl Dose/Route: 2 units sub-Q Condition: glucose 301-350 mg/dl Dose/Route: 3 units sub-Q Condition: glucose 351-400 mg/dl Dose/Route: 4 units sub-Q Condition: glucose > 400 mg/dl Dose/Route: Call insulin aspart U-100 [Novolog U-100 Insulin aspart] 100 unit/mL Solution 4 - 8 unit subcut TIDWM Qty: 1 1RF Protocol: Insulin Corrective High-Dose Condition: glucose < 70 mg/dl Dose/Route: Follow hypoglycemia order Condition: glucose 70-200 mg/dl Dose/Route: No additional insulin Condition: glucose 201-250 mg/dl Dose/Route: 4 units sub-Q Condition: glucose 251-300 mg/dl Dose/Route: 5 units sub-Q Condition: glucose 301-350 mg/dl Dose/Route: 6 units sub-Q Condition: glucose 351-400 mg/dl Dose/Route: 8 units sub-Q Condition: glucose > 400 mg/dl Dose/Route: Call Protocol Text: *No Correction Dose at Bedtime* insulin aspart U-100 [Novolog U-100 Insulin aspart] 100 unit/mL Solution 10 unit subcut TIDWM Qty: 1 1RF Artificial Tears([id number]) 1-0.2-0.2 % Drops 1 drp EACH EYE QID PRN (Reason: Dry Eye(S)) Qty: 1 0RF potassium chloride 20 mEq tablet,ER particles/crystals 20 meq PO DAILY Qty: 10 0RF Follow-up/Referrals: Elvialleonel,Elly Camejo, ADVICE CLERK [Primary Care Provider, Unknown]
[2025-01-15 14:28] LABS: Add Urine Microscopic? YES; Appearance Urine Clear (Clear); Glucose Urine UA Negative (Negative); Leukocyte Esterase Ur Negative LEU/UL (Negative); Nitrate Urine Negative (Negative); Non Pathogenic Casts 0-2; Specific Grav Ur 1.024 (1.001-1.035)
[2025-01-15 14:29] LABS: BEDSIDEPREGUCG Negative (Negative)
[2025-01-15] MEDS: diazePAM INJ (*CRX) 10 MG/2 ML SYRINGE 5 MG IV PUSH (14:34)
--- OUTSIDE RECORDS SUMMARY | 2025-01-15 15:22 | XMS_ITS | Patient Health Record ---
Author Organization [facility] Address [address] [place] [address] Care Team Providers Care Director Reactor Projects Name Role Phone Maru Montoya Primary Care Provider Allergies No Known Allergies Reason For Referral No Information Medications Medication SIG (Take, Route, Fr equency, Duration) Notes Start Date End Date Status hydrOXYzine HCl 10 MG 1 tablet as needed Orally three times daily as needed; Duration: 30 days Active PROzac 10 MG 1 capsule Orally Onc e a day; Duration: 30 day(s) Active Social History Tobacco Use: Social History Observation Description Date Details (start date - stop date) Never Smoker NA - NA Sex Assigned At : Social History Observation Description Sex Assigned At Female Dont use, Tobacco Use/Smoking Question Answer Notes Are you a nonsmoker Problems Problem Type SNOMED Code ICD Code Onset Dates Problem Status W/U Status Risk Notes Problem Anxiety (76717436) Anxiety (F41.9) Active confirmed Problem Moderate recurrent major depression (68458847) Moderate episode of recurrent major depressive disorder (F33.1) Active confirmed Plan Of Treatment No Information Insurance Providers Payer Name Payer Address Payer Phone Subscriber Number Group Number Insured Name Patient Relationship to Insured Coverage Start Date Coverage End Date MEDICAID [address] [place] [phone] [id number] Himanshu Win am Self - patient is the insured 1 [employer] [address] [place] [address] [id number] Himanshu Win am Self - patient is the insured 1 Medical (General) History Surgical History Surgery Date(Month/Year) wisdom teeth removal 2020 Hospitalization History Reason Date(Month/Year) Brown recluse spider bite (9 day stay)
--- OUTSIDE RECORDS SUMMARY | 2025-01-15 15:22 | XMS_ITS | Encounter Summary ---
Author Organization [facility] Address [address] [place] [address] Care Team Providers Care Grouter Helper Name Role Phone Unknown, Provider Primary Care Provider Unavaila ble Reason for Visit * Reason Onset Date Comments Blood Sugar Problem 09/13/2024 Encounter Details Date Type Department Care Team (Late st Contact Info) Description 09/13/2024 Telephone [facility] - Endocrinology [address] [facility] [place] [id number] Dulce Schmidt MD [address] [facility] [place] [address] Blood Sugar Problem Social History Tobacco Use Types Packs/Day Years Used Date Smoking Tobacco: Never Passive Smoke Exposure: Yes Smokeless Tobacco: Never Alcohol Use Standard Drinks/Week Comments No 0 (1 standard drink = 0.6 oz pur e alcohol) Comments No Sex and Gender Information Value Date Recorded Sex Assigned at Not on file Legal Sex Female 5:43 AM CONSTRUCTION ADMINISTRATOR Gender Identity Not on file Sexual Orientation Not on file documented as of this encounter Functional Status * Is person deaf or have serious hearing difficulty? Answer Date of Assessment Author No 12/30/2013 7:10 AM Kim Napier APRN-CNP * Is person blind or have serious difficulty seeing? Answer Date of Assessment Author No 12/30/2013 7:10 AM Kim Napier APRN-CNP * Does person have serious difficulty walking/climbing stairs? Answer Date of Assessment Author No 12/30/2013 7:10 AM CDT Kim Centeno APRN-CHAUNCEY * Does person have difficulty dressing/bathing? Answer Date of Assessment Author No 12/30/2013 7:10 AM CDT Kim Centeno APRN-CHAUNCEY * Does person have difficulty doing errands alone? Answer Date of Assessment Author No 12/30/2013 7:10 AM CDT Kim Centeno APRN-CHAUNCEY documented as of this encounter Mental Status * Does person have difficulty concentrating/remembering/making decisions? Answer Entry Date Author No 12/30/2013 7:10 AM Kim Napier APRN-CHAUNCEY documented in this encounter Miscellaneous Notes * Telephone Encounter - Dulce Schmidt MD - 09/13/2024 4:44 PM CDT Images from the original note were not included. Informed by nurse that patient reported labile BG and had presented to ED where she was asked to reach out to clinic. Also informed that patient reported post- meal flushing, nausea, vomiting and abdominal pain. Of note, patient had reported similar symptoms in last visit. She had past normal cortisol and thyroid tests. She is being worked up for gastroparesis pending endoscopy She has tandem with dexcom. AGP profile over past 2 weeks showed patterns of corrections and multiple auto-corrections as well as some missed bolusing and late bolusing. She does have some BG values as high as in 300s and some hypoglycemic episodes. Bolus appears appropriate for meal coverage. Average daily carb entry was 10 g. On calling patient, she reports labile BG in last 2 weeks and having BG in 50s and 60s everyday in the middle of the night for last 4 day. She does have some overnight hypoglycemia pattern. She reports symptoms with hypoglycemia. She denied recent pump changes or ongoing illness in last 2 weeks. Reports no change in dieting and exercise. Reports adequate bolusing and carb counting. She started using the pump since last year and reports the new symptoms. Informed patient about possibility of changing correction settings and basal to account for reported recurrent night time hypoglycemia. Stressed need to enter carb and bolus with meals to avoid hyperglycemia which will trigger more auto- corrections. Patient says she does not know how to make pump changes. Informed her of option to switch to basal bolus while awaiting pump settings change and possible troubleshooting. She reports preferring to stay on pump. She will reach out to tandem support team to troubleshoot her pump and see if it helps before considering switch to basal/bolus. I will reach out to the tandem pump rep. to assist patient as well. Pump settings will be changed to help prevent hypoglycemia. Basal rate will be reduced to 0.4. Correction factor will be reduced to 1:120. Will plan to schedule earlier appointment to follow with . Discussed with Dr. Elizondo. documented in this encounter Plan of Treatment Upcoming Encounters Date Type Department Care Team (Late st Contact Info) Description 02/11/2025 8:40 AM CONSTRUCTION ADMINISTRATOR Office Visit [facility] - Endocrinology [address] [facility] [place] [address] Hilario Traore MD [address] [place] [address] documented as of this encounter Visit Diagnoses Not on filedocumented in this encounter Care Teams Grouter Helper Relationship Specialty Start Date End Date Unknown, Provider PCP - General 07/09/24 documented as of this encounter
--- OUTSIDE RECORDS SUMMARY | 2025-01-15 15:22 | XMS_ITS | Encounter Summary ---
Author Organization [facility] Address [address] [place] [address] Care Team Providers Care Video Game Script Writer Name Role Phone Eduardo López PA-C Primary Care Provider [phone] Unknown, Provider Primary Care Provider Unavaila ble Encounter Details Date Type Department Care Team (Late st Contact Info) Description 11/14/2023 Telephone [facility] - Endocrinology [address] [place] [address], [facility] [place] [address] Meghana White MD [address] [place] [address] [place] [address] Social History Tobacco Use Types Packs/Day Years Used Date Smoking Tobacco: Passive Smo ke Exposure - Never Smoker Smokeless Tobacco: Never Alcohol Use Standard Drinks/Week Comments No 0 (1 standard drink = 0.6 oz pur e alcohol) Comments No Sex and Gender Information Value Date Recorded Sex Assigned at Not on file Legal Sex Female 5:43 AM SURFACE GRINDER TENDER Gender Identity Not on file Sexual Orientation [...] No 12/30/2013 7:10 AM CDT Kim Centeno APRN-CNP * Does person have difficulty dressing/bathing? Answer Date of Assessment Author No 12/30/2013 7:10 AM CDT Kim Centeno APRN-CHAUNCEY * Does person have difficulty doing errands alone? Answer Date of Assessment Author No 12/30/2013 7:10 AM CDT Kim Centeno APRN-CNP documented as of this encounter Mental Status * Does person have difficulty concentrating/remembering/making decisions? Answer Entry Date Author No 12/30/2013 7:10 AM CDT Kim Centeno APRN-CNP documented in this encounter Miscellaneous Notes * Telephone Encounter - Melida Pia - 11/14/2023 9:45 AM CDT Current Provider: Dr. Reji White Reason for Call: Ms. Himanshu Damon has appt 11/17/23 she put her new Dexcom G6 Sensor [...] call Mom Cat. Patient Call Back Number: [phone] documented in this encounter Plan of Treatment Upcoming Encounters Date Type Department Care Team (Late st Contact Info) Description 02/11/2025 8:40 AM SURFACE GRINDER TENDER Office Visit [facility] - Endocrinology [address] [facility] [place] [address] Hilario Traore MD [address] [facility] [address] [place] [id number] documented as of this encounter Visit Diagnoses Not on filedocumented in this encounter Care Teams Video Game Script Writer Relationship Specialty Start Date End Date Eduardo López PA-C [address] [place] [address] PCP - General Physician Machine Cell Tuber 07/25/23 07/08/24 Unknown, Provider PCP - General 07/09/24 documented as of this encounter
--- OUTSIDE RECORDS SUMMARY | 2025-01-15 15:22 | XMS_ITS | Clinical Summary ---
Author Organization [facility] Address [address] [place] [address] Care Team Providers Care Occupational Therapy Assistant Name Role Phone Unknown, Provider Primary Care Provider Unavaila ble Source Comments [facility],non-owned Affiliates and Associated Physician Practices is amultiple site organization consisting of ambulatory clinics and hospital sitesin [place], [place], [place] and [place]. This disclosure is being madepursuant to the Care Everywhere program and may not contain all information available regarding this patient. Last updated 17.[facility] Allergies Active Allergy Reactions Criticality Noted Date Comments Cyclobenzaprine Nausea and/or Vomiting 02/12/20 Kiwi Extract Swelling High 07/18/2023 Tongue swells with blisters Mangifera Indica Unknown 07/09/2024 Shakir Flavor Swelling High 07/18/2023 Tongue swelling and blisters Pineapple Swelling,Unknown 07/18/2023 Medications * Be aware that medications may not be up to date on this document. Alwaysverify current medications with the patient. ibuprofen (MOTRIN) 200 MG tablet Take 200 mg by mouth every 6 hours as needed for Pain. Active acetaminophen (TYLENOL) 500 MG tablet Take 500 mg by mouth every 4 hours as needed for Pain. Maximum allowable Acetaminophen amount = 4 Grams (4000 mg) / 24 hours. Active SPRINTEC 28 0.25-35 MG-MCG tablet Take 1 tablet by mouth once daily 02/21/20 19 Active OneTouch Verio test strip 1 STRIP NEEDED USE INSTRUCTED 07/18/19 Active blood glucose test strip Use 1 (one) strip as instructed as needed 07/18/19 Active Lantus SoloStar pen Inject 35 (thirty five) Units subcutaneously every 24 hours 15 mL 11 07/25/19 Active Acetone, Urine, Test (Ketone Test) STRP 1 Each by In Vitro route as needed 100 strip 11 07/25/19 Active insulin lispro (HumaLOG KwikPen) 100 UNIT/ML pen Inject 8 (eight) Units to 13 (thirteen) Units subcutaneously 3 times daily before meals 8 units with 50-60 gm carb of meals, and add 3 units if glucose over 200, add 5 units if over 300, daily max 50 units 30 mL 11 11/02/19 Active insulin pen needle (Bd Uf Iii) 31G X 8 MM needleIndication s:Type 1 diabetes mellitus without complication (HCC) 1 (one) Each 4 times daily 200 Each 11 11/23/19 24 Active insulin aspart (NovoLOG FLEXPEN) pen INJECT 8- 13 UNITS SUBCUTANEOUSLY THREE TIMES DAILY BEFORE MEALS WITH 50-60 GRAMS OF CARBS MEALS AND ADD 3 UNITS IF GLUCOSE OVER 200, ADD 5 UNITS IF OVER 300, DAILY MAX 50 UNITS DAILY Active Glucagon (Gvoke HypoPen 2-Pack) 0.5 MG/0.1ML SOAJ Inject 0.5 mg subcutaneously as directed 0.2 mL 01/02/20 Active blood glucose (OneTouch Verio) test strip 1 STRIP NEEDED USE INSTRUCTED Active ondansetron, disintegrating, (Zofran ODT) 4 MG tablet Take 1 (one) tablet by mouth every 6 hours as needed for Nausea/Vomiting Allow tablet to dissolve on the tongue 15 tablet 05/04/19 25 Active Continuous Glucose Sensor (Dexcom G7 Sensor) MISCIndications: Type 1 diabetes mellitus without complication (HCC) Use 1 Each every 10 days 9 Each 3 05/20/19 25 Active Ubrelvy 100 MG tablet Take 1 (one) tablet by mouth once daily as needed 06/03/19 25 Active omeprazole (PriLOSEC) 20 MG capsule Take 1 (one) capsule by mouth 2 times daily as needed 06/12/19 25 Active pancrelipase (Creon 36,000) 52700-491043 units capsule Take by mouth 3 times daily with meals Active Active Problems Problem Noted Date Diagnosed [...] requiring transfusion. Plan: -[facility] -Benadryl PRN itching -Regular [...] Consider bony exostosis, pressure-induced callosity, atypical onychocryptosis. Encounters Date Type Department Care Team Description 10/29/2024 10:40 AM CDT Office Visit [facility] - Endocrinology [address] [place] [phone] Hilario Traore MD Type 1 diabetes mellitus without complication (HCC) (Primary Dx) 10/29/2024 Travel from Last 3 Months Immunizations Immunization Administration Dates Next Due DTaP VACCINE IM (6wk-6yrs) 04/26/2005,,2003,10/20 HEP A PED/ADULT VACCINE 11/03/2008,12/25/2006 HEP B VACCINE, PED/ADOL 03/05/2004,2003, HIB VACCINE 04/26/2005, 4,2003,10/20 Human Papilloma Virus Nineva lent Vaccine 09/22/2017,03/21/2017 INFLUENZA VACCINE 03/21/2017 MENINGOCOCCAL ACWY (MCV4P) VAC IM 2019, MENINGOCOCCAL B RECOMBINANT, 2 OR 3 DOSE, IM 2019 MMR 11/05/2008, 9,04/26/2005,09/23 PNEUMOCOCCAL PCV7 CONJ, PEDS 09/23/2004, 03/05/2004,2003,10/20 POLIO IPV 03/05/2004,2003,2003 TDAP (7yrs+) 11/07/2014 VARICELLA 03/06/2008,09/23/2004 Social History Tobacco Use Types Packs/Day Years Used Date Smoking Tobacco: Never Passive Smoke Exposure: Yes Smokeless Tobacco: Never Tobacco Cessation:Counseling Given: Not Answered Alcohol Use Standard Drinks/Week Comments No 0 (1 standard drink = 0.6 oz pur e alcohol) PHQ-2 Answer Date Recorded Patient Health Questionnaire-2 Score 0 10/29/2024 Comments No Sex and Gender Information Value Date Recorded Sex Assigned at Not on file Legal Sex Female 5:43 AM BASKETBALL SCOUT Gender Identity Not on file Sexual Orientation Not on file Last Filed Vital Signs Vital Sign Reading Time Taken Comments Blood Pressure 103/71 10/29/2024 11:17 AM CDT Pulse 66 10/29/2024 11:17 AM CDT Temperature 36.7 C (98 F) 05/04/2024 2:22 PM BASKETBALL SCOUT Respiratory Rate 16 05/04/2024 2:22 PM BASKETBALL SCOUT Oxygen Saturation 97% 10/29/2024 11:17 AM CDT Inhaled Oxygen Concentration - - Weight 56.7 kg (125 lb) 10/29/2024 11:17 AM CDT Height 162.6 cm (5' 4) 10/29/2024 11:17 AM CDT Body Mass Index 21.46 10/29/2024 11:17 AM CDT Plan of Treatment Upcoming Encounters Date Type Department Care Team (Late st Contact Info) Description 02/11/2025 8:40 AM BASKETBALL SCOUT Office Visit [facility] - Endocrinology [address] [facility] [place] [address] Hilario Traore MD [address] [place] [address] Health Maintenance Due Date Last Done Comments PNEUMOCOCCAL VACCINE (1 of 1 - PPSV23, PCV20, or PCV21) 08/20/2009 09/23/2004, 03/05/2004, 2003, Additional history exists HIV SCREENING 08/20/2018 MENINGOCOCCAL (Group B) VACC INE SHARED DECISION-MAKING (2 of 2 - Trumenba SCDM 2-dose series) 02/21/2020 2019 HEPATITIS C SCREENING 08/16/2021 CHLAMYDIA/GONORRHEA SCREENING 10/05/2022 10/05/2021 PAP SMEAR 08/20/2024 DTAP/TDAP/TD VACCINES (6 - T d or Tdap) 11/07/2024 11/07/2014, 04/26/2005, 03/05/2004, Additional history exists COVID-19 VACCINE (1 - 2023-2 5 season) 2024 INFLUENZA VACCINE (#1) 2024 03/21/2017 ZOSTER VACCINE (1 of 2) 08/20/2053 HEPATITIS B VACCINE Completed 03/05/2004, 2003, 2003 HIB VACCINE Completed 04/26/2005, 02/24, 2003, Additional history exists HPV VACCINE Completed 09/22/2017, 03/21/2017 MENINGOCOCCAL GROUPS A/C/Y/W VACCINE Completed 2019, 11/07/2014 DEPRESSION SCREENING Completed 10/29/2024 Procedures Procedure Name Priority Date/Time Associated Diagnosis Comments HEMOGLOBIN A1C - POINT OF CARE (AMB) [facility] Routine 10/29/2024 11:44 AM CDT Type 1 diabetes mellitus without complication (HCC) from Last 3 Months Results * HEMOGLOBIN A1C - POINT OF CARE (AMB) [facility] (10/29/2024 11:44 AM CDT) Hemoglobin A1c POCT 6.8 % [facility] [address] [facility] BLOOD SPECIMEN / Unknown 10/29/2024 11:44 AM CDT us Hilario Traore MD LAB - POINT OF CARE ORDERABLES F inal Result [facility] [address] [facility] [address] [facility] [place] [address], [facility] [phone] from Last 3 Months Insurance [employer] Care Teams Occupational Therapy Assistant Relationship Specialty Start Date End Date Unknown, Provider PCP - General 07/09/24
[2025-01-15] MEDS: METOCLOPRAMIDE HCL INJ 10 MG/2 ML VIAL IV PUSH (16:35)
[2025-01-15] MEDS: KETOROLAC 15 MG/ML VIAL (*BKC) IV PUSH (16:35)
[2025-01-15 16:40] VITALS: BP 118/82; PULSE 93; RESP 14; O2SAT 100
--- OUTSIDE RECORDS SUMMARY | 2025-01-15 17:01 | XMS_ITS | Encounter Summary ---
Author Organization [facility] Address [address] [place] [address] Care Team Providers Care Engineering Group Manager Name Role Phone Unknown, Provider Primary Care Provider Unavaila ble Reason for Visit * Reason Onset Date Comments Blood Sugar Problem 09/13/2024 Encounter Details Date Type Department Care Team (Late st Contact Info) Description 09/13/2024 Telephone [facility] - Endocrinology [address] [facility] [place] [phone] Dulce Schmidt MD [address] [facility] [place] [address] Blood Sugar Problem Social History Tobacco Use Types Packs/Day Years Used Date Smoking Tobacco: Never Passive Smoke Exposure: Yes Smokeless Tobacco: Never Alcohol Use Standard Drinks/Week Comments No 0 (1 standard drink = 0.6 oz pur e alcohol) Comments No Sex and Gender Information Value Date Recorded Sex Assigned at Not on file Legal Sex Female 5:43 AM MANGLE TENDER Gender Identity Not on file Sexual [...] st Contact Info) Description 02/11/2025 8:40 AM MANGLE TENDER Office Visit [facility] - Endocrinology [address] [facility] [place] [address] Hilario Traore MD [address] [place] [address] documented as of this encounter Visit Diagnoses Not on filedocumented in this encounter Care Teams Engineering Group Manager Relationship Specialty Start Date End Date Unknown, Provider PCP - General 07/09/24 documented as of this encounter
--- OUTSIDE RECORDS SUMMARY | 2025-01-15 17:01 | XMS_ITS | Clinical Summary ---
Author Organization [facility] Address [address] [place] [address] Care Team Providers Care Air Conditioning Mechanic Industrial Name Role Phone Eduardo López Primary Care Provider [phone] Allergies Active Allergy Reactions Criticality Noted Date Comments Cyclobenzaprine Nausea and Vomiting 02/11/2023 Kiwi Fruit Swelling High 07/18/2023 Tongue swells with blisters Shakir Flavoring Agent (Non-Screening) Swelling High 07/18/2023 Tongue [...] times daily with meals. 60 tablet 01/04/20 24 Active methocarbamol (ROBAXIN) 750 MG Tab Take 1 tablet (750 mg total) by mouth every 4 (four) hours. 180 tablet 01/04/20 24 Active Active Problems Problem Noted Date Diagnosed Date Moderate episode of recurrent major depressive d isorder 07/24/2023 Anxiety 07/24/2023 Type 1 diabetes mellitus 07/24/2023 Jaundice 12/25/2013 Overview (07/24/2023): Last Assessment & [...] in hgb requiring transfusion. [facility]: [facility] @ 75ml/hr -Benadryl PRN itching -Regular diet -H/H q8h -Vitals q8h Immunizations Immunization Administration Dates Next Due Dtap 04/26/2005, 4,2003,2003 HPV GARDASIL 9-VALENT 09/22/2017,03/21/2017 Hepatitis A (Generic) 11/03/2008,12/25/2006 Hepatitis B Pediatric 03/05/2004,2003,07/26 Hib (Generic) 04/26/2005, 4,2003,2003 Influenza Adult (Generic) 03/21/2017 MMR 11/05/2008, 9,04/26/2005,06/30/ 2005 Menactra 2019,11/07/2014 Meningcoccal Group B (Trumen ba)(aka [...] Information Value Date Recorded Sex Assigned at Female 10/04/2024 1:53 PM CDT Legal Sex Female 5:13 PM CDT Gender Identity Not on file Sexual Orientation Not on file Last Filed Vital Signs Vital Sign Reading Time Taken Comments Blood Pressure 129/71 10/04/2024 3:54 PM CDT Pulse 70 10/04/2024 3:54 PM CDT Temperature 36.1 C (97 F) 10/04/2024 3:54 PM CDT Respiratory Rate 16 10/04/2024 3:54 PM CDT Oxygen Saturation 97% 10/04/2024 3:54 PM CDT Inhaled Oxygen Concentration - - Weight 59.9 kg (132 lb) 10/04/2024 1:10 PM CDT Height 162.6 cm (5' 4) 10/04/2024 1:10 PM CDT Body Mass Index 22.66 10/04/2024 1:10 PM CDT Plan of Treatment Health Maintenance Due Date Last Done Comments Kidney Health Evaluation 2003 Annual Physical 08/20/2006 Meningococcal B Vaccine (2 of 2 - Trumenba SCDM 2-dose series) 02/21/2020 2019 Diabetes: Retinopathy Eye Exam 08/20/2021 Hepatitis C 08/20/2021 Pneumococcal Vaccine: Pediatrics (0 to 5 Years) and At-Risk Patients (6 to 49 Years) (1 of 2 - PCV) 08/20/2022 09/23/2004, 03/05/2004, 2003, Additional history exists PHQ-2 (Physician Star) 03/27/2024 07/18/2023 Hemoglobin A1C 07/08/2024 04/09/2024, 0805/2023, 07/25/2023, Additional history exists Lipid Panel 07/24/2024 07/25/2023 Cervical Cancer Screening Pap Smear (Age 21 to 29) Every 3 Years 10/05/2024 10/05/2021 Cervical Cancer Screening 10/05/2024 DTaP, Tdap and Td Vaccines (6 - Td or Tdap) 11/07/2024 11/07/2014, 04/26/2005, 03/05/2004, Additional history exists COVID-19 Vaccine ( season) 2024 Influenza Adult (#1) 2024 03/21/2017 Hepatitis B Vaccines Completed 03/05/2004, 2003, 2003 Hepatitis A Vaccines Completed 11/03/2008, 12/26/19 07 HPV Vaccines Completed 09/22/2017, 03/21/2017 Meningococcal Vaccine Completed 2019, 015 RSV Immunizations Under 20 Months Aged Out No longer eligible based on patient's age to complete this topic Procedures Procedure Name Priority Date/Time Associated Diagnosis Comments OUTSIDE LAB (SCAN ORDER) Routine 07/10/2023 from Last 3 Months or Most Recently Relevant to Health Maintenance Results * OUTSIDE LAB (07/10/2023) HGB A1C 13.7 % [facility] 07/10/2023 us [facility] Scanned SCANNING Final Resu lt [facility] from Last 3 Months or Most Recently Relevant to Health Maintenance Insurance [employer] Care Teams Air Conditioning Mechanic Industrial Relationship Specialty Start Date End Date Eduardo Ló[place] [address] [place] [address] PCP - General Physician [employer] 09/11/23
--- OUTSIDE RECORDS SUMMARY | 2025-01-15 17:01 | XMS_ITS | Encounter Summary ---
Author Organization [facility] Address [address] [place] [address] Care Team Providers Care Mainframe Programmer Analyst Name Role Phone Eduardo López PA-C Primary Care Provider Unknown, Provider Primary Care Provider Unavaila ble Encounter Details Date Type Department Care Team (Late st Contact Info) Description 11/14/2023 Telephone [facility] - Endocrinology [address] [place] [address], [facility] [place] [address] Meghana White MD [address] [place] [address] [place] [address] Social History Tobacco Use Types Packs/Day Years Used Date Smoking Tobacco: Passive Smo ke Exposure - Never Smoker Smokeless Tobacco: Never Alcohol Use Standard Drinks/Week Comments No 0 (1 standard drink = 0.6 oz pur e alcohol) Comments No Sex and Gender Information Value Date Recorded Sex Assigned at Not on file Legal Sex Female 5:43 AM SALES OFFICE ASSISTANT Gender Identity Not on file Sexual Orientation [...] call Mom Cat. Patient Call Back Number: [phone] documented in this encounter Plan of Treatment Upcoming Encounters Date Type Department Care Team (Late st Contact Info) Description 02/11/2025 8:40 AM SALES OFFICE ASSISTANT Office Visit [facility] - Endocrinology [address] [facility] [place] [address] Hilario Traore MD [address] [facility] [address] [place] [phone] documented as of this encounter Visit Diagnoses Not on filedocumented in this encounter Care Teams Mainframe Programmer Analyst Relationship Specialty Start Date End Date Eduardo López PA-C [address] [place] [address] PCP - General Physician Business Office Manager 07/25/23 07/08/24 Unknown, Provider PCP - General 07/09/24 documented as of this encounter
--- OUTSIDE RECORDS SUMMARY | 2025-01-15 17:02 | XMS_ITS | Data Portability ---
Author Organization [facility] [place] Address [address] [place] [address] [address] Assessment No assessment recorded. Plan of Treatment Reminders Order Date Submit Date Provider Last Modified By Organization Details Last Modified Time Details Appointments None recorded. Lab test, urine 2023 024 [email or web address] 1 [place], [address], [place], [address], 4 14:29:26 urinalysis , dipstick 2023 [facility]24 [email or web address] [place] [facility] [address], [place], [address], 4 14:31:22 culture, urine 2023 024 [facility] (Lab), [address], [place], [address], 4 07:02:27 test, urine 2023 024 [email or web address] [place], [address], [place], [address], 4 17:35:33 Referral None recorded. Procedures None recorded. Surgeries None recorded. Imaging None recorded. Medication Orders Junel Fe 24 1 mg-20 mcg (24)/75 mg (4) tablet 2024 025 [facility]A [facility], [address] [facility] [address], [address], 17:09:54 Nexplanon 68 mg subdermal implant 2023 024 [email or web address] Not available 16:48:53 Lo Loestrin Fe 1 mg-10 mcg (24)/10 mcg (2) tablet 2022 023 [email or web address] [facility], [address], [address], 12:41:27 Patient TargetsNo targets recorded. Patient InstructionsNo instructions recorded. Reason for Referral None Reported. Results Created Date Observation Date Name Description Value Unit Range Abnormal Flag Note LastModifiedBy Organization Detail LastModifiedTime 09/06/1909/06/2023 pregn cristhian test, urine HCG negati ve Not Available [place] [address], [place], [address], 09/06/2023 17:22:24 11/24/19 24 11/24/2023 CULTU RE: URINE result report SEE RESULT S BELOW Test: Cultu re: Urine Speci men Sourc e: Urine Voide d Speci men Type: Urine Speci men Date: 2023 1447 Resul t Date: 0559 Resul t Statu s: Final resul t Abnor mal: No Resul ting Lab: [facility] [address] [facility] [address] Tel: CULTU RE ----- ----- ----- --- No growt h in 1 day (dete ction level of 10,00 0 colon ies / ml.) Not Available [facility] (Lab) [address] [facility], [place], [address], 11/26/2023 07:02:27 11/24/19 24 11/24/2023 urina lysis , dipst ick Leukocytes trace Not Available [facility] [address], [place], [address], 11/24/2023 14:29:46 11/24/19 24 11/24/2023 urina lysis , dipst ick Nitrite normal Not Available [place] [address], [place], [address], 11/24/2023 14:29:46 11/24/19 24 11/24/2023 urina lysis , dipst ick Urobilinogen normal Not Available [facility] [address], [place], [address], 11/24/2023 14:29:46 11/24/19 24 11/24/2023 urina lysis , dipst ick Protein trace Not Available [place] [address], [place], [address], 11/24/2023 14:29:46 11/24/19 24 11/24/2023 urina lysis , dipst ick pH 8 Not Available [place] [address], [place], [address], 11/24/2023 14:29:46 11/24/19 24 11/24/2023 urina lysis , dipst ick Blood +++ Not Available [place] [address], [place], [address], 11/24/2023 14:29:46 11/24/19 24 11/24/2023 urina lysis , dipst ick Specific Oneco 1.020 Not Available [facility] [address], [place], [address], 11/24/2023 14:29:46 11/24/19 24 11/24/2023 urina lysis , dipst ick Ketone +1 Not Available [place] [address], [place], [address], 11/24/2023 14:29:46 11/24/19 24 11/24/2023 urina lysis , dipst ick Bilirubin normal Not Available Sharmila [facility]son [address], [place], [address], 11/24/2023 14:29:46 11/24/19 24 11/24/2023 urina lysis , dipst ick Glucose normal Not Available [place] [address], [place], [address], 11/24/2023 14:29:46 11/24/19 24 11/24/2023 urina lysis , dipst ick Appearance normal Not Available Pablo corley [address], [place], [address], 11/24/2023 14:29:46 11/24/19 24 11/24/2023 urina lysis , dipst ick Color normal Not Available [place] [address], [place], [address], 11/24/2023 14:29:46 11/24/19 24 11/24/2023 pregn cristhian test, urine HCG negati ve Not Available [place] [address], [place], [address], 11/24/2023 14:28:53 Result Notes None recorded. Problems Name Problem SNOMED Code Status Onset Date Resolution Date Notes Provider Name and Address Organization Details Recorded Time Surveill ance of contrace ption Completed 201810/06/2021 Encounter for surveilla nce of contracep tives, unspecifi ed;Record ed Elsewhere : No Locati on: [facility] So urce: EHR Chron ic: N Practic e ID: [id number] Bill able Time: 10:00:00 AM Lynne Storm [place] - [facility] 10:51:[address] Concept Completed 201810/06/2021 Well woman check w/o abnormal finding;R ecorded Elsewhere : No Locati on: [facility] So urce: EHR Chron ic: N Practic e ID: [id number] Bill able Time: 10:00:00 AM Lynne Storm [facility], [facility] 2 10:51:49 Type 1 diabetes mellitus 54327182 Active 2023 Mylene Avalos [facility] 4 14:23:45 Problem Notes None recorded. Procedures Surgical History Date Name Laterality Status Provider Name and Address Organization Details Recorded Time 11/24/19 24 Control Implant Removal completed Marianna Jacques CNM [address], [place], [address], [facility] 11/24/2023 14:43:37 09/06/19 24 Control Implant Insertion completed ZOE Mari [address], [place], [address], [facility] 09/06/2023 17:47:35 01/18/20 22 Nexplanon Removal completed ZOE Mari [address], [place], [address], [facility] 01/17/2022 12:20:18 01/11/20 20 Control Implant Insertion completed ZOE Vaca-BC [address], [place], [address], [facility] 01/11/2020 13:15:03 03/27/19 20 extraction of wisdom tooth completed Mylene Avalos [facility] 11/24/2023 14:25:33 03/27/19 08 removal of silastic tubes from ear completed Mylene Avalos [facility] 01/11/2020 13:13:00 Imaging Results None recorded. Procedure Notes None recorded. Medical Equipment None Reported. Allergies Allergen ID Allergen Name Allergen Category Reaction Reaction Severity Criticality Documentation Date Start Date Code Code System Note Provider Name and Address Organization Details Recorded Time 2266 pineapple extract food Not available Not available Not available 12/30/2019 12339 74 RxNorm Cindy Gomez [facility] 0 17:40:11 63680 gal extract food Not available Not available Not available 05/02/2024 01388 32 RxNorm ADRIENNE Sheikh [facility] 5 16:48:01 07287 kiwi fruit extract food Not available Not available Not available 05/02/2024 79573 01 RxNorm ADRIENNE Sheikh [facility] 5 16:48:07 Medications Name Sig Start Date Stop Date [...] completed Not Available Not Available Not Available metronidazo le 500 mg tablet TAKE 1 TABLET BY MOUTH TWICE DAILY DIRECTED FOR 7 DAYS active Not Available Not Available No t Available ketorolac 10 mg tablet TAKE 1 [...] completed Not Available Not Available Not Available methocarbam ol 750 mg tablet TAKE 1 TABLET BY MOUTH EVERY 4 HOURS active Not Available Not Available No t Available trazodone 100 mg tablet TAKE 1 [...] completed Not Available Not Available Not Available ibuprofen 600 mg tablet TAKE 1 TABLET BY MOUTH THREE TIMES DAILY NEEDED FOR PAIN active Not Available Not Available No t Available methylpredn isolone 4 mg tablets in a dose pack TAKE BY MOUTH DIRECTED ON INSIDE OF PACKAGE active Not Available Not Available No t Available hydroxyzine HCl 10 mg tablet TAKE 1 TABLET ORALLY THREE TIMES DAILY NEEDED FOR 30 DAYS 05/30 completed Not Available Not Available Not Available ondansetron 4 mg disintegrat ing tablet DISSOLVE 1 TABLET IN MOUTH EVERY 6 HOURS NEEDED FOR NAUSEA/VO MITING active Not Available Not Available No t Available dicyclomine 10 mg capsule TAKE 1 CAPSULE BY MOUTH TWICE DAILY NEEDED FOR ABDOMINAL PAIN 05/02 completed Not Available Not Available Not Available naproxen 500 mg tablet TAKE 1 TABLET BY MOUTH TWICE DAILY WITH MEALS active Not Available Not Available No t Available amoxicillin 875 mg-potassiu m clavulanate 125 [...] Not Available Not Available Sprintec (28) 0.25 mg-0.035 mg tablet Take 1 tablet by mouth once [...] Ketone Urine Test strips USE DIRECTED NEEDED active Not Available Not Available No t Available pen needle, diabetic 32 gauge x 5/32 USE 1 PEN NEEDLE 4 TIMES DAILY active Not Available Not Available No t Available Lo Loestrin Fe 1 mg-10 mcg (24)/10 mcg (2) tablet Take 1 tablet every day by oral route. 08/03 completed Not Available Not Available Not Available Nexplanon 68 mg subdermal implant Inject 1 implant by subcutane ous route. 05/02 completed Not Available Not Available Not Available OneTouch Verio test strips 1 STRIP NEEDED USE INSTRUCTE D active Not Available Not Available No t Available Geetha 24 Fe 1 mg-20 mcg (24)/75 mg (4) tablet TAKE 1 TABLET BY MOUTH ONCE DAILY active Not Available Not Available No t Available TRUEplus Pen Needle 31 gauge x 1/4 USE 4 TIMES DAILY active Not Available Not Available No t Available Dexcom G6 Sensor device USE 1 SENSOR EVERY 10 DAYS active Not Available Not Available No t Available Dexcom G6 Transmitter device USE EVERY 90 DAYS active Not Available Not Available No t Available Ubrelvy 100 mg tablet TAKE 1 TABLET BY MOUTH ONCE DAILY NEEDED active Not Available Not Available No t Available Gvoke HypoPen 2-Pack 0.5 mg/0.1 mL subcutaneou s auto-inject or INJECT 0.5 MG SUBCUTANE OUSLY DIRECTED active Not Available Not Available No t Available insulin glargine-yf gn (U-100) 100 unit/mL (3 mL) subcutaneou s pen INJECT 35 UNITS IN THE MORNING active Not Available Not Available No t Available Vitals Date Recorded Body height Body mass index (BMI) Body mass index (BMI) [Percentile] Per age and sex Body weight Systolic And Diastolic Provider Name and Address Organization Details Last Updated DateTime 3 162.56 cm 19.2 kg/m2 20 % 91997.6 3 g 115/77 mm[Hg] Camelia Madrid [facility] 3 10:59:23 Date Recorded Body height Body mass index (BMI) Body mass index (BMI) [Percentile] Per age and sex Body weight Systolic And Diastolic Provider Name and Address Organization Details Last Updated DateTime 05/02/2024 162.56 cm 21.1 kg/m2 42 % 22575.8 6 g 122/80 mm[Hg] ADRIENNE Sheikh [facility] 5 16:47:50 Date Recorded Body height Body mass index (BMI) [Percentile] Per age and sex Body mass index (BMI) Body weight Systolic And Diastolic Provider Name and Address Organization Details Last Updated DateTime 08/04/2023 162.56 cm 47 % 21.5 kg/m2 65579.0 5 g 112/73 mm[Hg] Renetta Tariq [facility] 4 12:40:32 Date Recorded Body height Body mass index (BMI) Body mass index (BMI) [Percentile] Per age and sex Body weight Systolic And Diastolic Provider Name and Address Organization Details Last Updated DateTime 09/06/2023 162.56 cm 22.4 kg/m2 58 % 63043.4 5 g 114/78 mm[Hg] Lynne Urbinase [facility] 4 17:26:54 Date Recorded Body height Body mass index (BMI) Body mass index (BMI) [Percentile] Per age and sex Body weight Systolic And Diastolic Provider Name and Address Organization Details Last Updated DateTime 11/24/2023 162.56 cm 23 kg/m2 63 % 53637.3 8 g 104/66 mm[Hg] Mylene Avalos [facility] 4 14:19:11 Social History Question Answer Notes LastModified by Organizat ion Details LastModified Time Tobacco Smoking Status Current Every Day Smoker also vape Renetta [email or web address], [facility] 08/04/2023 12:44:23 Do You Have An Advance Directive? No Information not available 01/06/2022 How Many Years Have You Consumed Alcohol? [...] Used? Prem [email or web address] Information not available 08/04/2023 What Is The Highest Grade Or Level Of School You Have Completed Or The Highest Degree You Have Received? [id number] Information not available 01/06/2022 Are There Any Guns Present In Your Home? No Information not available 01/06/2022 What Was The Date Of Your Most Recent Tobacco Screening? 11/24/2023 [email or web address] Information not available 11/24/2023 Do You Use Protection During Sex? Always Information not available 01/06/2022 Do You Use Your Seat Belt Or Car Seat Routinely? Yes Information not available 01/06/2022 Do You Have Smoke And Carbon Monoxide Detectors In Your Home? Yes Information not available 01/06/2022 At What Age Did You Start Smoking Tobacco? 13 Information not available 04/18/2022 How Much Tobacco Do You Smoke? 1 PPD Information not available 04/18/2022 Do You Use Sunscreen Routinely? Yes Information not available 01/06/2022 How Many Years Have You Smoked Tobacco? 3 Information not available 04/18/2022 Have You Used IV Drugs? No Information not available 01/06/2022 Do You Have Difficulty Walking Or Climbing Stairs? No Information not available 04/18/2022 Sex: Unknown Functional Status Question Answer Note LastModified by Organizat ion Details LastModified Time Do you use any illicit or recreational drugs? Yes Information not available 01/06/2022 What is your level of alcohol consumption? Occasional Information not available 04/18/2022 Do you or have you ever used smokeless tobacco? Never used smokeless tobacco Information not available 04/18/2022 Are you able to walk independently without assistance or assistive devices? YESWOREST Information not available 10/05/2021 Are you able to care for yourself independently? 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 No Information not available 04/18/2022 Do you or have you ever used e-cigarettes or vape? Never used electronic cigarettes Information not available 04/18/2022 What is your exercise level? Moderate Information not available 01/06/2022 Mental Status Question Answer Note LastModified by Organization D etails LastModified Time Do you feel stressed (tense, restless, nervous, or anxious, or unable to sleep at night)? [id number] Information not available 04/18/2022 Family History Relationship Description Onset Age of this Age Resolved Age Notes LastModified by Organization Details LastModified Time Mother Anemia [email or web address] Not available 17:40:24 Mother Cyst of ovary Not available 2022 10:53:07 Mother Hysterectomy [email or web address] Not avai lable 05/02/2024 16:50:18 Sister Cyst of ovary [email or web address] Not available 2022 10:53:07 Maternal Grandmother Cyst of ovary [email or web address] Not available 2022 10:53:07 Maternal Grandmother Uterine prolapse [email or web address] Not available 2022 10:53:07 Maternal Aunt Cyst of ovary [email or web address] Not available 2022 10:53:08 Maternal Aunt Disorder [...] N Thrombophilias N Gynecological History Statement/Question Response Date of Last Mammogram Flow Moderate Date of LMP 04/22/2024 N Was last menstrual period normal N STIs/STDs N Date of Last Colonoscopy Condoms Desired Control Method Condoms Abnormal Pap N On BCP's at Conception? Y Colposcopy HPV Vaccine Y Duration of Flow (days) 5 Current Control Method None Are cycles usually normal N Sexually Active? Y Menses Monthly N Date of DEXA bone scan Age of first menstrual cycle 6 Date of Last Pap Smear Sexual Problems? N LMP Definite N Obstetrics History GPAL:G 0 P 0 0 0 0 Type Value Living 0 Total 0 Past Encounters Encounter ID Performer Location Encounter Start Date Encounter Closed Date Diagnosis/Indication Diagnosis SNOMED-CT Code Diagnosis ICD10 Code Diagnosis IMO Codes Diagnosis Note [id number] [address] [address] 12/31/2019 14:42:04 12/31/2019 15:32:12 Gynecologic examination 80155081 Z01.419 Take Calcium with Vitamin D 1200mg [...] paper copy of today's plan if desired. Contracept ion care management 828325981 Z30.9 N94.5 Discussed all control options in [...] during placebo week for placement [facility]on. [id number] [facility] [address],[facility] [place] [address] 01/11/2020 12:39:33 01/13/2020 15:04:20 Removal of subcutaneous contraceptive 359404743 Z30.46 Patient is here currently on her [...] or hypersensi tivity at the insertion site [id number] ZOE Mari [place] [address],[facility] [address] 10/05/2021 16:48:56 10/06/2021 15:00:42 Contraception care management 985877619 Z30.9 Abdominal pain 14015116 R10.9 Urine Culture sent to r/o UTIUrine [...] plan of care. Venereal d isease screening 649512702 Z11.3 [id number] Rosario Ramey [facility] [address],[place] [address] 04/01/2020 09:55:26 04/01/2020 17:21:45 Contraception care management 542228287 Z30.9 N94.5 Patient is here today for [...] counseling and review of plan of care. [id number] Kirk Pham MD [place] [address],[place] [address] 10/07/2021 09:51:48 10/07/2021 10:16:55 Lower abdominal pain 28258299 R10.30 [id number] [facility] [address],[place] [address] 10/16/2021 09:27:03 10/18/2021 16:31:06 Pain in pelvis 07610136 R10.2 US reviewedCo nsider possibilit y that [...] counseling and review of plan of care. [id number] ZOE Mari [place] [address],[place] [address] 01/06/2022 14:08:41 01/06/2022 14:45:52 Pain in pelvis 51462300 R10.2 We reviewed the various causes of [...] try this.She denies hx of DVT/PE, HTN, Stroke/HI, cancer, liver disease, or migraine with aura1 month of lo loestrin given to [facility] for pelvic u/s and u/s f/uED precaution [...] and review of plan of care. Constipation 71741967 K5 9.00 Likely constipati on is contributi ng to pain. Encouraged daily stool softener, increase fiber intake. Referral to GI sent Contracept ion care management 320042158 Z30.9 [id number] Kirk Pham MD [place] [address],[facility] [address] 01/12/2022 10:56:54 01/12/2022 11:52:56 Pain in pelvis 68102786 R10.2 [id number] ZOE Mari [place] [address],[place] [address] 01/13/2022 16:08:41 01/13/2022 16:44:45 Abdominal pain 39151819 R10.9 We reviewed normal pelvic u/sShe was [...] plan of care. Contracept ion care management 881005273 Z30.9 [id number] ZOE Mari [place] [address],[facility] [address] 01/17/2022 11:43:42 01/17/2022 13:06:27 Removal of subcutaneous contraceptive 204800183 Z30.46 Removal site was cleansed with betadine and 3cc of lidocaine used for anesthesia . Device was removed in normal fashion without difficulty . Steri stips and pressure bandage placed. Patient tolerated procedure well. We discussed backup method of control - already on OCP. Happy with OCP.ED precaution s discussed Contracept ion care management 232255224 Z30.9 Continue OCP. RTC for med check in 3 months [id number] ZOE Mari [place] [address] [address] 04/18/2022 10:52:36 04/18/2022 11:12:41 Contraception care management 294821279 Z30.9 Patient is here today for a medicaton check of control. She voices goals of therapy have been met with use of this therapy. She denies neg side effects. She is eating, drinking, sleeping well; moods are stable & periods are well regulated. Wishes to continue this method of BC. Appropriat e to continue this medication . Happy with OCPSample given - 905317U, Sep 2022Rx sent x 12 monthsRTC in 1 year or sooner if needed Time spent in visit is a total of 15 mins with at least 50% of visit consisting of counseling and review of plan of care. [id number] ZOE Mari [place] [address],[place] [address] 08/04/2023 12:36:14 08/04/2023 13:39:16 Contraception care management 429299409 Z30.9 Discussed all control options in depth [...] counseling and review of plan of care. [id number] ZOE Mari [place] [address],[place] [address] 09/06/2023 17:18:15 09/06/2023 18:11:25 Contraception care management 351850100 Z30.9 R/b of nexplanon discussed and accepted by patientUPT (-)consent reviewed and signednexp lanon insertion performed (see procedure note)preca utions discussed Implantati on of subcutaneous contraceptive 904027636 Z30.46 [id number] [facility] [address],[place] [address] 11/24/2023 13:49:47 11/24/2023 14:52:37 Abnormal uterine bleeding 4883213869 9100 N93.9 Blood in urine 34422567 R31.9 Removal of subcutaneous contraceptive 330806980 Z30.46 tolerate wellmonito r cyclesf/u wwe [id number] Monse Lozada WILLY [place] [address],[place] [address] 05/02/2024 16:31:22 05/07/2024 00:45:12 Pain in pelvis 54638511 R10.2 Discussed pain, suspect at least partial GI component given IBS-Cwill check pelvic u/s - orderedSTI screen and UPT declined todayquest ions answered, precaution s discussed Contracept ion care management 155740550 Z30.9 Discussed all control options in great detail. Pt would like to start ocp. She is aware of the risks and benefits. She does not have any medical condition that is contraindi cated with the use of estrogen containing control. Pt will start her pills on the first day following the start of her period. She is aware it is not effective for control the first month. She is also aware of the importance of taking at the same time every day. Encouraged use of condoms as the pill does not protect against STI's. Will return in 3-4 months for med check. Time spent in visit is a total of 30 mins with at least 50% of visit consisting of counseling and review of plan of care. Health Concerns Section Related Observation LastModified by Organization Detai ls LastModified Time None Recorded Concern Status LastModified by Organization Details LastModified Time None Recorded Advance Directives Directive N: Payers Insurance Date Sequence Insurance Name Policy Number Policy Munguia Covered Member ID Munguia Member ID Guarantor Name 08/04/2023 1 [place] [employer] Himanshu Damon [id number] Himanshu Damon 05/05/2024 1 [facility] ON OR AFTER 09/24/20 (MEDICAID REPLACEMENT - HMO) Himanshu Damon [id number] Himanshu Damon 08/04/2023 1 [facility] - DOS ON OR AFTER 20 (MEDICAID REPLACEMENT - HMO) Himanshu Damon [id number] Himanshu Damon 08/04/2023 1 [facility] - DOS ON OR AFTER 20 (MEDICAID REPLACEMENT - HMO) Himanshu Damon [id number] Himanshu Damon 08/04/2023 1 *SELF PAY* Abdulkadir Damon Notes Date Note Type Note Provider Name and Address Organization Details Recorded Time 04/18/2022 text/html 16yo Presents for BC med checkHappy with BC!No issues, feeling so much better. No cramps Monse Lozada, ZOE [address], [place], [address], [facility] 04/18/2022 11:09:41 08/04/2023 text/html 17yo [id number] for BC consultwas on OCP, forgot to take pillswas previously on nexplanon and liked this methodrecently diagnosed with type 1 diabetes ZOE Mari [address], [place], [address], [facility] 08/04/2023 13:17:24 09/06/2023 text/html 18yo [id number] for nexplanon insertionLMP 09/03/2023 ZOE Mari [address], [place], [address], [facility] 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 Marianna Jacques, SELENA [address], [place], [address], [facility] 11/24/2023 14:45:08 05/02/2024 text/html 18yopresents to discuss BC options as well as pelvic painwould like to restart BC, wants to discuss all options, using condomslower pelvic pain/cramping, comes and goes - has IBS-C (often has irregular bowel movements). No current symptomshas been following with PCP and osteologist for fatigue/brain fog neg n/v/fneg flu-like symptomsneg vaginal d/c, odors, irritation/itchingSA with steady partner ZOE Mari [address], [place], [address], [facility] 05/06/2024 11:08:31 OBGyn Episode No OBEpisode recorded.
--- OUTSIDE RECORDS SUMMARY | 2025-01-15 17:02 | XMS_ITS | Clinical Summary ---
Author Organization [facility] Address [address] [place] [address] Care Team Providers Care Mask Layout Designer Name Role Phone Unknown, Provider Primary Care Provider Unavaila ble Source Comments [facility],non-owned Affiliates and Associated Physician Practices is amultiple site organization consisting of ambulatory clinics and hospital sitesin [place], [place], [place] and [place]. This disclosure is being madepursuant to the Care Everywhere program and may not contain all information available regarding this patient. Last updated 17.[facility] Allergies Active Allergy Reactions Criticality Noted Date [...] needed 06/12/19 25 Active pancrelipase (Creon 36,000) 14503-260392 units capsule Take by mouth 3 times [...] requiring transfusion. Plan: [facility] 75[facility]/hr -Benadryl PRN itching [...] Description 10/29/2024 10:40 AM CDT Office Visit 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 Gender Identity Not on file Sexual Orientation Not on file Last Filed Vital Signs Vital Sign Reading Time Taken Comments Blood Pressure 103/71 10/29/2024 11:17 AM CDT Pulse 66 10/29/2024 11:17 AM CDT Temperature 36.7 C (98 F) 05/04/2024 2:22 PM BAKERY MACHINE MECHANIC SUPERVISOR Respiratory Rate 16 05/04/2024 2:22 PM BAKERY MACHINE MECHANIC SUPERVISOR Oxygen Saturation 97% 10/29/2024 11:17 AM CDT Inhaled Oxygen Concentration - - Weight 56.7 kg (125 lb) 10/29/2024 11:17 AM CDT Height 162.6 cm (5' 4) 10/29/2024 11:17 AM CDT Body Mass Index 21.46 10/29/2024 11:17 AM CDT Plan of Treatment Upcoming Encounters Date Type Department Care Team (Late st Contact Info) Description 02/11/2025 8:40 AM BAKERY MACHINE MECHANIC SUPERVISOR Office Visit [facility] - Endocrinology [address] [place] [address] Hilario Traore MD [address] [place] [address] Health Maintenance Due Date Last [...] Hemoglobin A1c POCT 6.8 % [facility] [address] BLOOD SPECIMEN / Unknown 10/29/2024 11:44 AM CDT us Hilario Traore MD LAB - POINT OF CARE ORDERABLES F inal Result [facility] [address] [facility] [place] [address], [facility] [phone] from Last 3 Months Insurance [facility] Care Teams Mask Layout Designer Relationship Specialty Start Date End Date Unknown, Provider PCP - General 07/09/24
[2025-01-15 17:29] VITALS: BP 107/69; PULSE 77; RESP 19; O2SAT 100
== END 2025-01-15 17:30 | disposition home or self-care (01) ==
PROVIDERS: Emergency Medicine; Emergency Provider Physician Assistant
DX: R11.2 Nausea with vomiting, unspecified (principal); E10.9 Type 1 diabetes mellitus without complications; Z79.4 Long term (current) use of insulin
CPT/HCPCS: 36415; 74177; 80053; 81001; 81025; 82948; 83735; 84100; 85025; 96361; 96374; 96375; 99284; J1200; J1885; J2405; J2765; J3360; J7120; Q9967